=== PATIENT | female | born 1945 | race Caucasian/White ===

== ENCOUNTER 2024-10-12 11:33 | Emergency (ER) | payer MEDICARE, BC, SELFPAY ==
[2024-10-12] VITALS (9 sets, daily range): BP systolic 124–144; BP diastolic 75–99; PULSE 103–122; RESP 16–21; TEMP 35.9–36.7; O2SAT 94–100; BMI 24.4
--- NOTE | 2024-10-12 11:35 | PC.NURSE ---
PT ARRIVED BY AMBULANCE WITH POSSIBLE STROKE. PT WAS AT LOCAL [employer] AT 1115, TALKING AND NORMAL PER STAFF AT [facility]. THEN STARTED WITH REPETITIVE SPEAKING, GOT UNSTEADY AND FELL. WAS HELPED UP BY STAFF AND SAID I'M FINE I JUST WANT TO GO HOME. ASSISTED TO CAR BY STAFF WHERE PER MEDIC SHE DETERIORATED AND POLICE WERE CALLED, WHO THEN CALL EMS. PT WITH FORCED GAZE TO THE RIGHT, RIGHT FACIAL DROOP, SLURRED SPEECH, AND FLACCID ON THE LEFT ARM AND LEG. SEEN BY DR. MARTE IN THE AMBULANCE BAY ENTRANCE AND TAKEN TO CT ON EMS [facility]
--- NOTE | 2024-10-12 11:35 | PC.NURSE ---
stroke alert called before pt arrived @1131 with a 2 minute eta
--- NOTE | 2024-10-12 11:36 | PC.NURSE ---
telespecialist activated @ 4402 with a confirmation # of [id number]
--- NOTE | 2024-10-12 11:37 | EDNOTE_ITS ---
Neuro Symptoms Deficit-RME/HPI General Chief Complaint: Neuro Symptoms/Deficit Stated Complaint: POSSIBLE STROKE Time Seen by Provider: 10/12/24 11:41 Arrival date/time: 10/12/24 11:33 Limitations: no limitations RME / HPI RME / HPI Narrative: 79 year old female presents to the ED [facility] [place] [employer] [facility] for stroke evaluation. 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 Noticed while the patient was paying for the donuts she appeared lethargic, repeating questions/answers, and suddenly became weak and fell to the floor. No LOC. Medics report when they arrived the patient had weakness to the left side. Prehospital BS 112. Patient was evaluated at 11:33 am in ambulance bay and sent to CT. Per external medication review. Medications filled in the last 45 days includes Fenofibrate, Synthroid, Atenolol, HCTZ, Nifedipine, Losartan, Ezetimibe. Review of Systems Review of Systems ROS Unobtainable: unobtainable due to mental status ED Exam General Limitations: Present no limitations General appearance: Present other (Somnolent, follows commands ) Head Head exam: Present atraumatic and normocephalic Eye Eye exam: Present other (Pin point pupils, horizontal nystagmus ) ENT ENT exam: Present normal oropharynx and mucous membranes moist Neck Neck exam: Present normal inspection, full ROM and trachea midline Chest Chest inspection: Present normal inspection and symmetric chest wall rise Respiratory Respiratory exam: Present normal lung sounds bilaterally Cardiovascular Cardiovascular exam: Present regular rate, normal rhythm and normal heart sounds Abdominal Exam Abdominal exam: Present soft and normal bowel sounds Extremities Exam Extremities exam: Present normal inspection and other (Left upper and left lower extremity weakness) Back Exam Back exam: Present normal inspection Neurological Exam Neurological exam: Present other (Somnlent, GCS 11, follows commands, bilateral horizontal nystagmus, left facial droop, dense left sided extinction, weakness to the left upper and left lower extremities, dysarthria, expressive aphasia, ) Psychiatric Psychiatric exam: Present normal affect and normal mood Skin Skin exam: Present warm, dry, intact and normal color Course Quality Measures Suspected type of Stroke: Acute Ischemic Tenecteplase given: within 60 min of arrival stroke Orders Category Date Time Status Bedside Blood Glucose NOW Care 10/12/24 11:41 Completed Store Standards Associate NOW Care 12/09/24 11:41 Completed Continuous Pulse Oximetry NOW Care 10/12/24 11:41 Completed EKG (ED ONLY) *Do not use* NOW Care 10/12/24 11:41 Completed EKG (ED ONLY) *Do not use* NOW Care 10/12/24 12:49 Completed In and Out Catheter NEEDED Care 10/12/24 11:41 Completed Insert IV NOW Care 10/12/24 11:41 Completed NIH Stroke Scale NOW Care 10/12/24 12:14 Completed NIH Stroke Scale Q4HX8,QSHIFT Care 10/12/24 12:32 Completed NIH Stroke Scale now Care 10/12/24 11:41 Completed NPO NOW Care 10/12/24 11:41 Completed Neuro Check Q15M Care 10/12/24 12:32 Completed Neuro Check Q30MIN Care 10/12/24 11:42 Completed Nurse Swallow Screen x1 Care 10/12/24 11:41 Completed Vital Signs Q15M Care 10/12/24 12:32 Completed Consult to Neurology / Tele-Neurology Routine Cons 10/12/24 11:[address] angio stroke protocol Stat Exams 10/12/24 11:[address] head/brain wo con Stat Exams 10/12/24 11:41 Completed EKG (ED Only) Stat Exams 10/12/24 11:41 Draft EKG (ED Only) Stat Exams 10/12/24 12:49 Draft Alcohol, Blood Medical Stat Lab 10/12/24 11:45 Completed CBC Stat Lab 10/12/24 11:45 Completed Comprehensive Metabolic Panel Stat Lab 10/12/24 11:45 Completed Magnesium Stat Lab 10/12/24 11:45 Completed Partial Thromboplastin Time Stat Lab 10/12/24 11:45 Completed Prothrombin Time with INR Stat Lab 10/12/24 11:45 Completed Troponin I Stat Lab 10/12/24 11:45 Completed Labetalol IV [Trandate IV] Med 10/12/24 12:17 Discontinued 10 mg IVP PRNMRX1 PRN Labetalol IV [Trandate IV] Med 10/12/24 12:17 Discontinued 10 mg IVP PRNMRX1 PRN Nicardipine/Ns 20Mg Ivpb [Cardene Ivpb] Med 10/12/24 12:17 Discontinued 20 mg in 200 ml IV 5 mg/hr Nicardipine/Ns 20Mg Ivpb [Cardene Ivpb] Med 10/12/24 12:26 Discontinued 20 mg in 200 ml IV 5 mg/hr Ondansetron Inj [Zofran Inj] Med 10/12/24 13:33 Discontinued 4 mg IV X1 ONE Tenecteplase Inj [TNKase Inj] Med 10/12/24 12:17 Discontinued 16.7 mg IV X1 ONE Oxygen Delivery NOW RT 10/12/24 11:41 Completed Reevaluation(s) Reevaluation #1: Daughter reports she wants to move forward with TNKase. Time: 12:20 Vital Signs Vital signs: Vital Signs Temperature 98.0 F 10/12/24 12:11 Pulse Rate 103 H 10/12/24 12:11 Respiratory Rate 16 10/12/24 12:11 Blood Pressure 124/85 H 10/12/24 12:11 Pulse Oximetry (%) 100 10/12/24 12:11 Oxygen Delivery Method Room Air 10/12/24 12:11 Neuro Symptoms / Deficit MDM Narrative MDM Narrative:: Brittney Santana am scribing for and in the presence of Dr. Cleveland. : Level of consciousness May be assessed casually while taking history Alert; keenly responsive0 Arouses to minor stimulation+1 Requires repeated stimulation to arouse+2 Movements to pain+2 Postures or unresponsive+3 1B: Ask month and age Both questions right0 1 question right+1 0 questions right+2 Dysarthric/intubated/trauma/language barrier+1 Aphasic+2 1C: 'Blink eyes' & 'squeeze hands' Pantomime commands if communication barrier Performs both tasks0 Performs 1 task+1 Performs 0 tasks+2 2: Horizontal extraocular movements Only assess horizontal gaze Normal0 Partial gaze palsy: can be overcome+1 Partial gaze palsy: corrects with oculocephalic reflex+1 Forced gaze palsy: cannot be overcome+2 3: Visual olson No visual loss0 Partial hemianopia+1 Complete hemianopia+2 Patient is bilaterally blind+3 Bilateral hemianopia+3 4: Facial palsy Use grimace if obtunded Normal symmetry0 Minor paralysis (flat nasolabial fold, smile asymmetry)+1 Partial paralysis (lower face)+2 Unilateral complete paralysis (upper/lower face)+3 Bilateral complete paralysis (upper/lower face)+3 5A: Left arm motor drift Count out loud and use your fingers to show the patient your count No drift for 10 seconds0 Drift, but doesn't hit bed+1 Drift, hits bed+2 Some effort against gravity+2 No effort against gravity+3 No movement+4 Amputation/joint fusion0 5B: Right arm motor drift Count out loud and use your fingers to show the patient your count No drift for 10 seconds0 Drift, but doesn't hit bed+1 Drift, hits bed+2 Some effort against gravity+2 No effort against gravity+3 No movement+4 Amputation/joint fusion0 6A: Left leg motor drift Count out loud and use your fingers to show the patient your count No drift for 5 seconds0 Drift, but doesn't hit bed+1 Drift, hits bed+2 Some effort against gravity+2 No effort against gravity+3 No movement+4 Amputation/joint fusion0 6B: Right leg motor drift Count out loud and use your fingers to show the patient your count No drift for 5 seconds0 Drift, but doesn't hit bed+1 Drift, hits bed+2 Some effort against gravity+2 No effort against gravity+3 No movement+4 Amputation/joint fusion0 7: Limb Ataxia FNF/heel-griggs No ataxia0 Ataxia in 1 Limb+1 Ataxia in 2 Limbs+2 Does not understand0 Paralyzed0 Amputation/joint fusion0 8: Sensation Normal; no sensory loss0 Mild-moderate loss: less sharp/more dull+1 Mild-moderate loss: can sense being touched+1 Complete loss: cannot sense being touched at all+2 No response and quadriplegic+2 Coma/unresponsive+2 9: Language/aphasia Describe the scene; name the items; read the sentences (see?Evidence https://www.[employer].com/calc/715/cmi-fqhysv-wmnny-score-nihss#evidence ) Normal; no aphasia0 Mild-moderate aphasia: some obvious changes, without significant limitation+1 Severe aphasia: fragmentary expression, inference needed, cannot identify materials+2 Mute/global aphasia: no usable speech/auditory comprehension+3 Coma/unresponsive+3 10: Dysarthria Read the words (see?Evidence https://www.[employer].com/calc/715/fmp-cwhcmt-eqpkr-score-nihss#evidence ) Normal0 Mild-moderate dysarthria: slurring but can be understood+1 Severe dysarthria: unintelligible slurring or out of proportion to dysphasia+2 Mute/anarthric+2 Intubated/unable to test0 11: Extinction/inattention No abnormality0 Visual/tactile/auditory/spatial/personal inattention+1 Extinction to bilateral simultaneous stimulation+1 Profound padmini-inattention (ex: does not recognize own hand)+21 modality name= extinction value= 4 style= font-family: Facit, Calibri, Helvetica, sans- serif !important; box-sizing: border-box; position: absolute; opacity: 0; cursor: pointer; height: 0px; width: 0px; > Extinction to >1 modality+2 17?points NIH Stroke Scale Copy Results Next Steps https://www.[employer].com/calc/715/osm-gpncio-pfarw-score-nihss#next- steps Patient data External records reviewed:: EMS form Clinical information provided by:: patient and EMS Social determinants that could affect healthcare access:: none Patient has the following chronic illnesses:: Hypertension, hyperlipidemia, hypothyroidism How is presenting disease/condition affected by chronic disease/condition?: exacerbated by Evaluation data The following diagnostics were reviewed and interpreted by me:: lab results, radiology exam(s) and EKG tracing(s) (EKG at 13:12. Atrial fibrillation, ventricular rate 111, normal axis, occasional PVC's, generalized ST abnormalities, no STEMI ) Lab and/or radiology exams considered but not ordered:: None Interpretation Summary: Ordering Physician: Case Cleveland MD Date of Service: 10/12/24 Procedure(s): CT head/brain wo con Accession Number(s): [id number] cc: Zander Crump MD; Case Cleveland MD~ Examination: CT brain head without contrast. 2-D sagittal coronal reconstructions Date and time of exam:October 12, 2024 1142 hours INDICATIONS: Stroke alert, altered mental status slurred speech beginning this morning CTDI: vol (mGy):43.8 DLP: (mGycm):769 Technique: Multiple CT axial sections of the brain have been obtained, 5 mm slice thickness. Contrast has not been administered. 2-D sagittal, coronal reconstructions have been obtained Low dose protocols were performed. One or more of the following dose reduction techniques were used; automated exposure control, adjustment of the mA and/or KV according to patient size, use of iterative reconstruction technique. Findings: No significant ventricular enlargement. Intra-axial or extra-axial hemorrhage density is not seen. No mass effect or midline shift Basal cisterns are not remarkable. Fourth ventricle is midline. Cranial vault intact. Impression: Negative for acute hemorrhage, mass effect or midline shift Dictated By: Zander Crump MD Signed By: <Electronically signed by Zander Crump MD in OV> 10/12/24 1153 ===== == Ordering Physician: Case Cleveland MD Date of Service: 10/12/24 Procedure(s): CT angio stroke protocol Accession Number(s): [id number] cc: Zander Crump MD; Case Cleveland MD~ Examination: CTA carotids with intravenous contrast CTA brain, head with intravenous contrast. 2-D sagittal, coronal reconstructions. 3-D reconstructions. Exam date and time: October 12, 2024 1154 hours INDICATIONS: Stroke alert, onset altered mental status slurred speech today CTDI: vol (mGy) 17.6 DLP: (mGycm) 399 Technique: Multiple CTA axial brain, head carotid images post intravenous contrast injection 75 cc, Isovue-370. 2-D sagittal, coronal reconstructions. 3-D reconstructions, 3-D post processing including vascular maximum intensity projection images. Low dose protocols were performed. One or more of the following dose reduction techniques were used; automated exposure control, adjustment of the mA and/or KV according to patient size, use of iterative reconstruction technique. Findings: No significant common carotid carotid bifurcation or internal carotid artery stenoses Dominant right vertebral artery no critical stenoses Occlusion midportion M1 segment right middle cerebral artery with reduced filling of right middle cerebral artery trifurcation vessels, acute thrombus proximal M1 segment right middle cerebral artery axial image 58 Anterior cerebral branches basilar artery and posterior cerebral branches do fill IMPRESSION: Acute thrombus occluding the M1 segment right middle cerebral artery, axial image 58 Dictated By: Zander Crump MD Signed By: <Electronically signed by Zander Crump MD in OV> 10/12/24 1212 Medications / Prescriptions Medications or Prescriptions considered but not ordered:: None Medication administrations:: Medication Administration History Discontinued Medications Nicardipine/Sodium Chloride (Cardene Ivpb) 20 mg in 200 mls @ 50 mls/hr IV .Q4H PRN; Protocol PRN Reason: Per Nicardipine Stroke Protocol Stop: 11/11/24 12:16 Nicardipine/Sodium Chloride (Cardene Ivpb) 20 mg in 200 mls @ 50 mls/hr IV .Q4H PRN; Protocol PRN Reason: Per Nicardipine Stroke Protocol Stop: 11/11/24 12:25 Labetalol HCl (Labetalol Inj 5 Mg/Ml Vial 20 Ml) 10 mg IVP PRNMRX1 PRN PRN Reason: SBP > 185 mmHg and/or DBP > 110 Labetalol HCl (Labetalol Inj 5 Mg/Ml Vial 20 Ml) 10 mg IVP PRNMRX1 PRN PRN Reason: SBP > 180 mmHg or DBP > 105 Ondansetron HCl (Ondansetron Inj 2 Mg/Ml Inj 2 Ml) 4 mg IV X1 ONE; Protocol Stop: 10/12/24 13:34 Last Admin: 10/12/24 13:38 Dose: 4 mg Documented By: ANDREY Tenecteplase (Tenecteplase Inj 50 Mg Vial) 16.7 mg 0.25 mg/kg (16.7 mg) IV X1 ONE Stop: 10/12/24 12:18 Last Admin: 10/12/24 12:27 Dose: 16.7 mg Documented By: Co-signed By: ANDREY See above Consultations Consultation(s) initiated? (list below): Yes Consultation #1 (Physician, Specialty, Details): I spoke with teleneurologist Dr. Mullins. Reports patient has an acute thrombus occluding the M1 segment right cerebral artery. States she spoke with patients daughter who reports she is on Eliquis although is unsure and asking we give her a few minutes to go home and check the patients medication list. Time: 12:10 Consultation #2 (Physician, Specialty, Details): I spoke with txfer nurse at [facility]. Discussed patients PMHx, HPI, ED course, exam findings, labs, and radiology results. Was unable to get ahold of the interventional neuroligist although will relay the information. Time: 12:25 Consultation #3 (Physician, Specialty, Details): 1230: Notified by RN that the patient has been accepted to [facility], ER to ER by Dr. Cintron. Diagnosis Neuro Differential Diagnosis: subarachnoid hemorrhage, cerebrovascular accident and transient cerebral ischemia Most likely diagnosis given after review of the tests above:: Right MCA large vessel occlusion Admission Indicated Admission indicated?: not indicated Explain why admission is indicated or not indicated:: Requires transfer for M1 occlusion and interventional neurology. Admission Request Was there a request for admission?: No Disposition Plan Disposition Plan: Transfer Critical Care Time Critical Care Time Critical Care Time: Yes Total Critical Care Time (min.): 60 Attestation: The high probability of sudden, clinically significant deterioration in the patient's condition required the highest level of my preparedness to intervene urgently. The services I provided to this patient were to treat and/or prevent clinically significant deterioration. Services included the following: chart data review, reviewing nursing notes and/or old charts, documentation time, test consultant collaboration regarding findings and treatment options, medication orders and management, direct patient care, vital sign assessments and ordering, interpreting and reviewing diagnostic studies and lab tests. Aggregate critical care time includes only time during which I was engaged in work directly related to the patient's care, as described above, whether at bedside or elsewhere in the Emergency Department. It did not include time spent performing other reported procedures or the services of residents, students, nurses or physician assistants. Discharge Plan Plan Patient Disposition: [facility] Facility Pt Being Transferred to: [facility] Service Needed for Transfer: Neurosurgery Prescriptions/Referrals Referrals: No Primary/Family,Physician [Primary Care Provider] - In 1 week Problem List Clinical Impression: Acute right MCA stroke Patient/Caregiver Discharge Instructions Print Language: Yoruba Stand Alone Forms: [facility]ce[facility] Award Info., Patient Portal Info Letter
--- NOTE | 2024-10-12 11:41 | XR_ITS ---
Examination: CTA carotids with intravenous contrast CTA brain, head with intravenous contrast. 2-D sagittal, coronal reconstructions. 3-D reconstructions. Exam date and time: October 12, 2024 1154 hours INDICATIONS: Stroke alert, onset altered mental status slurred speech today CTDI: vol (mGy) 17.6 DLP: (mGycm) 399 Technique: Multiple CTA axial brain, head carotid images post intravenous contrast injection 75 cc, Isovue-370. 2-D sagittal, coronal reconstructions. 3-D reconstructions, 3-D post processing including vascular maximum intensity projection images. Low dose protocols were performed. One or more of the following dose reduction techniques were used; automated exposure control, adjustment of the mA and/or KV according to patient size, use of iterative reconstruction technique. Findings: No significant common carotid carotid bifurcation or internal carotid artery stenoses Dominant right vertebral artery no critical stenoses Occlusion midportion M1 segment right middle cerebral artery with reduced filling of right middle cerebral artery trifurcation vessels, acute thrombus proximal M1 segment right middle cerebral artery axial image 58 Anterior cerebral branches basilar artery and posterior cerebral branches do fill IMPRESSION: Acute thrombus occluding the M1 segment right middle cerebral artery, axial image 58
--- NOTE | 2024-10-12 11:41 | XR_ITS ---
Examination: CT brain head without contrast. 2-D sagittal coronal reconstructions Date and time of exam:October 12, 2024 1142 hours INDICATIONS: Stroke alert, altered mental status slurred speech beginning this morning CTDI: vol (mGy):43.8 DLP: (mGycm):769 Technique: Multiple CT axial sections of the brain have been obtained, 5 mm slice thickness. Contrast has not been administered. 2-D sagittal, coronal reconstructions have been obtained Low dose protocols were performed. One or more of the following dose reduction techniques were used; automated exposure control, adjustment of the mA and/or KV according to patient size, use of iterative reconstruction technique. Findings: No significant ventricular enlargement. Intra-axial or extra-axial hemorrhage density is not seen. No mass effect or midline shift Basal cisterns are not remarkable. Fourth ventricle is midline. Cranial vault intact. Impression: Negative for acute hemorrhage, mass effect or midline shift
--- NOTE | 2024-10-12 11:41 | EKG_ITS ---
[facility] Test Date: 2024-10-12 Pat Name: ANDRE LEVIN Department: Room: - Gender: Female Manager Hospital: : 1945 Requested By: Case Whitney Order Number: [id number] Reading MD: Case Whitney Measurements Intervals [place] Rate: 112 P: PA: QRS: 67 QRSD: 91 T: -33 QT: 351 QTc: 479 Interpretive Statements ATRIAL FIBRILLATION WITH RAPID VENTRICULAR RESPONSE NONSPECIFIC ST & T-WAVE ABNORMALITY No previous ECG available for comparison /store/S0/[id number]/ecg/[id number].pdf
[2024-10-12 11:59] LABS: Basophils # (Auto) 0.1 Thou/mm3 (0.0-0.2); Basophils % (Auto) 1 % (0-2.5); Eosinophils # (Auto) 0.1 Thou/mm3 (0.0-0.5); Eosinophils % (Auto) 2 % (0-10); Hematocrit 36.5 % (36.0-46.0); Hemoglobin 12.1 g/dL (12.0-16.0); Immature Granulocytes % (Auto) 1 % (0-0); Immature Granulocytes Auto 0.04 Thou/mm3 (0.00-0.00); Lymphocytes # (Auto) 3.6 Thou/mm3 (1.0-4.8); Lymphocytes % (Auto) 42 % (10-50); Mean Corpuscular HGB Conc 33.2 g/dl (31.0-37.0); Mean Corpuscular Hemoglobin 30.1 pg (25.0-35.0); Mean Corpuscular Volume 91 fL (80-100); Monocytes # (Auto) 0.8 Thou/mm3 (0.0-0.8); Monocytes % (Auto) 9 % (0-12); Neutrophils % (Auto) 47 % (37-80); Nucleated Red Blood Cell % 0 /100 WBC (0); Platelet Count 450 Thou/mm3 (140-440); RDW Standard Deviation 43.5 fL (36.4-46.3); Red Blood Count 4.02 Miln/mm3 (4.00-5.20); White Blood Count 8.6 Thou/mm3 (3.6-11.0)
[2024-10-12 12:14] LABS: INR 1.1 (0.9-1.3); Partial Thromboplastin Time 21.4 Seconds (22.0-36.0); Prothrombin Time 12.4 Seconds (9.0-12.2)
[2024-10-12 12:23] LABS: Alanine Aminotransferase 23 U/L (10-49); Albumin, Serum 4.3 gm/dL (3.4-4.8); Albumin/Globulin Ratio 1.7 (1.2-2.2); Alcohol, Blood Medical < 3.0 mg/dL (0-10.0); Alkaline Phosphatase 53 U/L (46-116); Anion Gap 9 (7-16); Aspartate Amino Transferase 40 U/L (0-34); BUN/Creatinine Ratio 17 Ratio (12-20); Bilirubin,Total 0.6 mg/dL (0.3-1.2); Blood Urea Nitrogen 34 mg/dL (9-23); Calcium 9.3 mg/dL (8.3-10.6); Calcium (Corrected) 9.3 mg/dL (8.5-10.1); Carbon Dioxide 22.7 mMol/L (20.0-31.0); Chloride 107 mMol/L (98-107); Estimated Creatinine Clearance 20.5 mL/min (>60); Globulin 2.6 gm/dL (2.3-3.5); Glucose 164 mg/dL (74-106); Magnesium 1.8 mg/dL (1.6-2.6); Osmolality,Calculated 289 (275-295); Potassium 4.5 mMol/L (3.4-5.1); Sodium 139 mMol/L (136-145); Total Protein 6.9 gm/dL (5.7-8.2); Troponin I < 0.020 ng/mL (0.0-0.045); eGFR 25 See Note
[2024-10-12] MEDS: TENECTEPLASE INJ 50 MG VIAL 16.7 MG IV (12:27)
--- NOTE | 2024-10-12 12:35 | PC.NURSE ---
1133 tele neuro activated. left facial droop, left sided weakness and inattention. Patient intermittently able to shake head yes or no. Consent given to tele neurologist via phone by daughter. 16.7 mg TNK ordered by tele neuro, dose rechecked by Idalmis Azul RN and veterans adviser. Med give at 1227 by veterans adviser.
--- NOTE | 2024-10-12 12:37 | PC.CM ---
Addendum entered by Yarely Newman RN 10/12/24 13:22: 1322 [facility] [employer] Called [facility], spoke to Beth and she confirmed that she received the paperwork. 1315 transfer packet is complete with CD inside including all signatures. Transfer Packet given to bedside nurse and number to call for report is on tracker. EMS is already at bedside. Addendum entered by Yarely Newman RN 10/12/24 12:56: 1256 Called [facility], spoke to Becky and setup the stat transport. She stated the team is own their way to [facility]. 1254 received call from Becca at [facility] that transport is declined due to weather. Addendum entered by Yarely Newman RN 10/12/24 12:45: 1239 called [facility], spoke to Becca to setup the transport. Becca stated she will call me back after flight and weather check. Addendum entered by Yarely Newman RN 10/12/24 12:43: 1234 received call from Amrik at [facility] that pt has been accepted at [facility] ED to ED transfer. Accepting Dr. is Wai Dyson. Number to call for report is [phone]. Original Note: 1216 called [facility], spoke to Amrik and initiated the transfer request. Amrik wants me to send her pt face sheet and clinicals faxed over to [facility] ED fax no at [phone]. Amrik wants me to get Dr. Cleveland on the line while she gets her neuro-interventional on the line for peer to peer. I connected Dr. Cleveland on the call. While on hold I faxed face sheet to [facility] at 1226 and faxed clinicals to [facility] ED at 6110. I also pushed images to [facility] through [employer]. Amrik stated she is unable to connect her neuro-interventional on the line and she will try again in a little bit. [address] Cleveland pt has LVO needs to be stat transferred for neuro-surgical services. Per Dr. Cleveland pt LWN is 11:15am, pt has GCS of 12 on 2l/min NC.
--- NOTE | 2024-10-12 12:42 | PC.NURSE ---
JUJU FROM [facility] CALLING TO SPEAK TO LEEROY HARDING AT THIS TIME
--- NOTE | 2024-10-12 12:47 | PD.NEUROCONS ---
History of Present Illness Consult Narrative History of present illness: [facility] Patient Name:???cr johnson Date of :???1945 Identification Number:??? 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 NIHSS was 19. CTA head and neck showed a left M1 occlusion. Pt's daughter was able to be reached and verified no contraindications to iv-thrombolytics. The risks and benefits of iv-thrombolytics were discussed with the patient's daughter including risk of ICH of about 2-6% including risk of fatal ICH, systemic bleeding, anaphylaxis and mortality. After a discussion of the risks and benefits, pt 's agreed to iv-TNK which was given at 12:27. There was a delay in the time to decision as pt's daughters at first was unable to be reached, and then the patient's daughter wanted to hold TNK while she tried to find her mother's medication list. to verify she was not on any anticoagulation. Transfer is being arranged by the ED for potential neurointervention. Our recommendations are outlined below. Recommendations: IV Tenecteplase recommended. I confirmed the following. (Patient name, , MRN, Blood Pressure, dose of Thrombolytic and waste, weight completed by stretcher/scale not stated weight, have ED staff inform ED MD of thrombolytic decision) Thrombolytic bolus given Without Complication. IV Tenecteplase Total Dose ? 16.7 mg Routine post Thrombolytic monitoring including neuro checks and blood pressure control during/after treatment Monitor blood pressure Check blood pressure and neuro assessment every 15 min for 2 h, then every 30 min for 6 h, and finally every hour for 16 h. Manage Blood Pressure per post Thrombolytic protocol. ? Follow designated hospital protocol for admission and post thrombolytic care ? CT brain 24 hours post Thrombolytic ? NPO until swallowing screen performed and passed ? No antiplatelet agents or anticoagulants (including heparin for DVT prophylaxis) in first 24 hours ? No Avalos catheter, nasogastric tube, arterial catheter or central venous catheter for 24 hr, unless absolutely necessary ? Telemetry ? Bedside swallow evaluation ? HOB less than 30 degrees ? Euglycemia ? Avoid hyperthermia, PRN acetaminophen ? DVT prophylaxis ? Inpatient Neurology Consultation ? Stroke evaluation as per inpatient neurology recommendations Discussed with ED physician Advanced Imaging: CTA Head and Neck Completed. LVO:Yes Discussed with ARNALDO :No Metrics: Last Known Well: 10/12/2024 11:15:00 Dispatch Time: 10/12/2024 11:33:43 Arrival Time: 10/12/2024 11:33:00 Initial Response Time: 10/12/2024 11:35:52Symptoms: Right sided weakness. . Initial patient interaction: 10/12/2024 11:44:48 NIHSS Assessment Completed: 10/12/2024 11:48:42Patient is a candidate for Thrombolytic. Thrombolytic Medical Decision: 10/12/2024 12:16:18 Needle Time: 10/12/2024 12:27:53Weight Noted by Staff: 66.7 kg I personally Reviewed the CT Head and it showed a possible dense right MCA sign and a small area of hypoattenuation in the left insula that appears c/w a chronic infarct, but no early ischemic changes. Primary Provider Notified of Diagnostic Impression and Management Plan on: 10/12/2024 12:21:40 Extended thrombolytic management related to: ?? Awaiting on history by family on potential contraindications Thrombolytic Contraindications: Last Known Well > 4.5 hours:?No CT Head showing hemorrhage:?No Ischemic stroke within 3 months:?No Severe head trauma within 3 months:?No Intracranial/intraspinal surgery within 3 months:?No History of intracranial hemorrhage:?No Symptoms and signs consistent with an SAH:?No GI malignancy or GI bleed within 21 days:?No Coagulopathy: Platelets <100 000 /mm3, INR >1.7, aPTT>40 s, or PT >15 s:?No Treatment dose of LMWH within the previous 24 hrs:?No Use of NOACs in past 48 hours:?No Glycoprotein IIb/IIIa receptor inhibitors use:?No Symptoms consistent with infective endocarditis:?No Suspected aortic arch dissection:?No Intra-axial intracranial neoplasm:?No Thrombolytic Decision and Management Plan: Management with thrombolytic treatment was explained to the Family as was risks and benefits and alternatives to the treatment. Patient agrees with the decision to proceed with thrombolytic treatment. . All questions were answered and the Family expressed understanding of the treatment plan. History of Present Illness:Patient is a 79 year old Female. Patient was brought by EMS for symptoms of Right sided weakness. . Pt is a 79 yo F with HTN, HLP, hyperlipidemia who was brought in by EMS for sudden onset of AMs and left sided weakness. PT was at at a store buying donuts when she suddenly became lethargic and confused. When staff came to assist her, she fell with left sided weakness. EMS noted left sided weakness, right gaze deviation and slurred speech. I was able to reach the patients daughter by phone who verified that there is no history of stroke in the last 3 months, major head trauma, ICH, cancer, . No surgeries or procedures in the past 3 months. No history of GI or bleeding in the past 21 days. The patient is not taking any anticoagulants, and there is no history of bleeding diathesis. Past Medical History: ?Hypertension ?Hyperlipidemia Other PMH:? Hypothyroidism Medications: No Anticoagulant use? No Antiplatelet use Reviewed EMR for current medications Other Medications Pertinent To Assessment Include: Atenolol ?Synthroid ?HCTZ ?Losartan ?Zetia ?Fenofibrate. ? Allergies:? Description:?Bactim, PHenergan, Codeine, Simvastatin, Prevachol Social History: Smoking: No Family History: There is no family history of premature cerebrovascular disease pertinent to this consultation ROS : 14 Points Review of Systems was performed and was negative except mentioned in HPI. Past Surgical History: There Is No Surgical History Contributory To Today?s Visit Examination: BP(119/78),?Pulse(117),?Blood Glucose(112) 1A: Level of Consciousness - Alert; keenly responsive?+ 0 1B: Ask Month and Age - Both Questions Right?+ 0 1C: Blink Eyes & Squeeze Hands - Performs Both Tasks?+ 0 2: Test Horizontal Extraocular Movements - Forced Gaze Palsy: Cannot Be Overcome?+ 2 3: Test Visual Nj - Complete Hemianopia?+ 2 4: Test Facial Palsy (Use Grimace if Obtunded) - Partial paralysis (lower face)?+ 2 5A: Test Left Arm Motor Drift - No Movement?+ 4 5B: Test Right Arm Motor Drift - No Drift for 10 Seconds?+ 0 6A: Test Left Leg Motor Drift - No Movement?+ 4 6B: Test Right Leg Motor Drift - No Drift for 5 Seconds?+ 0 7: Test Limb Ataxia (FNF/Heel-Bryant) - No Ataxia?+ 0 8: Test Sensation - Complete Loss: Cannot Sense Being Touched At All?+ 2 9: Test Language/Aphasia - Normal; No aphasia?+ 0 10: Test Dysarthria - Mild-Moderate Dysarthria: Slurring but can be understood?+ 1 11: Test Extinction/Inattention - Profound padmini-inattention (ex: does not recognize own hand)?+ 2 NIHSS Score:?19 Pre-Morbid Modified Ashlee Scale:0 Points = No symptoms at all Spoke with :?Dr. Zander Crump This consult was conducted in real time using interactive audio and video technology. Patient was informed of the technology being used for this visit and agreed to proceed. Patient located in hospital and provider located at home/office setting. Patient is being evaluated for possible acute neurologic impairment and high probability of imminent or life-threatening deterioration. I spent total of 51 minutes providing care to this patient, including time for face to face visit via telemedicine, review of medical records, imaging studies and discussion of findings with providers, the patient and/or family. Dr Susana Mullins [facility] For Inpatient follow-up with [facility] physician please call [facility] at . As we are not an outpatient service for any post hospital discharge needs please contact the hospital for assistance. If you have any questions for the [facility] physicians or need to reconsult for clinical or diagnostic changes please contact us via [facility] at . cc:: cc: Results Labs 10/12/24 11:45 10/12/24 11:45 Labs: Short CBC 10/12/24 Range/Units 11:45 WBC 8.6 (3.6-11.0) Thou/mm3 Hgb 12.1 (12.0-16.0) g/dL Hct 36.5 (36.0-46.0) % Plt Count 450 H (140-440) Thou/mm3 BMP 10/12/24 11:45 Sodium 139 Potassium 4.5 Chloride 107 Carbon Dioxide 22.7 BUN 34 H Creatinine 2.0 H Glucose 164 H Calcium 9.3 Cardiac Enzymes 10/12/24 Range/Units 11:45 Troponin I < 0.020 (0.0-0.045) ng/mL Liver Function 10/12/24 Range/Units 11:45 Total Bilirubin 0.6 (0.3-1.2) mg/dL AST 40 H (0-34) U/L ALT 23 (10-49) U/L Alkaline Phosphatase 53 (46-116) U/L Albumin 4.3 (3.4-4.8) gm/dL
--- NOTE | 2024-10-12 12:49 | EKG_ITS ---
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: : 1945 Requested By: Case Whitney Order Number: [id number] Reading MD: Case Whitney Measurements Intervals [place]et Rate: 111 P: CO: QRS: 58 QRSD: 90 T: -3 QT: 326 QTc: 443 Interpretive Statements ATRIAL FIBRILLATION WITH RAPID VENTRICULAR RESPONSE WITH ABERRANT CONDUCTION OR VENTRICULAR PREMATURE COMPLEXES MODERATE ST DEPRESSION [0.05+ mV ST DEPRESSION] ABNORMAL QRS-T ANGLE [QRS-T AXIS DIFFERENCE > 60] Compared to ECG 10/12/2024 12:13:02 Ventricular premature complex(es) now present Aberrant conduction of supraventricular beat(s) now present ST (T wave) deviation now present T-wave abnormality no longer present /store/S0/[id number]/ecg/[id number].pdf
[2024-10-12] MEDS: ONDANSETRON INJ 2 MG/ML INJ 2 ML 4 MG IV (13:38)
--- NOTE | 2024-10-12 13:45 | PC.NURSE ---
EMS left with transfer sheet, called [facility] @ [phone], spoke with Priya yanez, will fax me transfer sheet in order for me to properly fill out form and will fax back to their facility.
--- NOTE | 2024-10-12 13:49 | PC.NURSE ---
Patient left with EMS at 1343. Report given to EMS, [facility] at [facility], and bedside RN at [facility]. Staff satisfied with report and had no further questions. Patient's vitals stable at time of transport. Daughter and grandson to follow EMS to [facility]. Original NIH 1p. NIH upon departure 14. Failed swallow screen, zofran given due to nausea. Patient GCS 15, aaox4. Left sided weakness remains however she now has some effort against gravity.
--- NOTE | 2024-10-12 15:43 | PC.NURSE ---
faxed completed transfer sheet to [facility] to [phone], spoke with clerk Priya at their facility and she will give to nurse
== END 2024-10-12 13:43 | disposition short-term general hospital (02) ==
PROVIDERS: Emergency Provider Emergency Medicine
DX: I63.311 Cerebral infarction due to thrombosis of right middle cerebral artery (principal); R47.81 Slurred speech; R53.1 Weakness; I10 Essential (primary) hypertension; R29.719 NIHSS score 19; Z75.1 Person awaiting admission to adequate facility elsewhere
CPT/HCPCS: 36415; 70450; 70496; 70498; 80053; 80307; 80320; 81001; 83735; 84484; 85025; 85610; 85730; 93005; 96374; 99291; A4649; J2405; J3101; Q9967; G0480

== ENCOUNTER 2024-12-13 18:20 | Inpatient (IN) | payer MEDICARE, BC, SELFPAY ==
[2024-12-13] VITALS (36 sets, daily range): BP systolic 114–183; BP diastolic 69–110; PULSE 71–110; RESP 14–24; TEMP 36.6; O2SAT 100; BMI 29.2
--- NOTE | 2024-12-13 18:35 | PC.NURSE ---
@1835- Pt BIBA; pt 80 y/o F from SNF; on scene, pt actively seizing at facility, per staff. Upon EMS arrival, pt still seizing about 1 min with vomiting. 4mg versed given IN via EMS. Pt has hx of seizures. Pt initially on ED 16 and was bagged by Dr. Lobo for approximately 1 minute. Pt achieved 100% O2 saturation; bagging stopped. Pt satting at 99% on RA. @1838- Pt still seizing, per Dr. Cleveland. Dr. Cleveland at bedside bagging pt. Pt moved to ED 4 at this time.
--- NOTE | 2024-12-13 18:39 | PD.EDSEIZ ---
ED Seizures RME/HPI General Chief Complaint: Seizure Stated Complaint: SEIZURE Time Seen by Provider: 12/13/24 18:55 Source: EMS Arrival date/time: 12/13/24 18:20 Mode of arrival: EMS Limitations: altered mental status RME / HPI RME / HPI Narrative: Dr. Cleveland?s Main ED Evaluation: 80-year-old female from [facility] was brought to the Emergency Department by ambulance due to seizure activity. Per EMS report, the patient was actively seizing upon their arrival. The seizure episode lasted approximately one minute, during which the patient experienced vomiting. EMS administered 4 mg of intranasal Versed (midazolam) to terminate the seizure. EMS interventions included EKG monitoring, cardiac monitoring, ambu-bag ventilation, and the use of a non-rebreather mask for oxygen support. Related Data Allergies Allergy/AdvReac Type Severity Reaction Status Date / Time codeine Allergy Verified 12/13/24 19:10 pravastatin Allergy Verified 12/13/24 19:10 promethazine (From Phenergan) Allergy Verified 12/13/24 19:10 sulfamethoxazole (From Allergy Verified 12/13/24 19:10 Bactrim) trimethoprim (From Bactrim) Allergy Verified 12/13/24 19:10 Review of Systems Review of Systems ROS Unobtainable: unobtainable due to mental status and unobtainable due to medical condition Past Medical History Past Medical History NEUROLOGIC: Negative Neurological Disorders, Cerebrovascular Accident, Transient Ischemic Attacks (TIA), Dementia, Alzheimer's Disease, Parkinson's Disease, Brain Tumor, Meningitis, Seizures, Epilepsy, Multiple Sclerosis, Cerebral Palsy, Amyotrophic Lateral Sclerosis (ALS/Mia Gehrig's), Guillain-[place] Syndrome, Spina Bifida, Paralysis, Peripheral Neuropathy, Mederos's Palsy, Subdural Hematoma, Migraine, Head Trauma, Spinal Cord Injury or Traumatic Brain Injury CARDIAC: Positive Atrial Fibrillation (new onset, undiagnosed), Hypercholesterolemia and Hypertension; Negative Cardiac Disorders, Myocardial Infarction, Cardiac Arrhythmia, Angina, Heart Murmur, Coronary Artery Disease, Atherosclerotic Heart Disease, Peripheral Vascular Disease, Aneurysm, Congestive Heart Failure, Congenital Heart Disease, Valvular Heart Disease, Rheumatic Fever, Cardiomyopathy, Edema, Pericarditis, Cellulitis, Deep Vein Thrombosis, Hypotension or Varicose Veins RESPIRATORY: Negative Chronic Obstructive Pulmonary Disease (COPD), Asthma, Bronchitis, Emphysema, Pneumonia, Pulmonary Fibrosis, Tuberculosis, Pulmonary Embolism, Pulmonary Edema or Sleep Apnea GASTROINTESTINAL: Negative Gastrointestinal Disorders, Hepatitis, Cirrhosis, Pancreatitis, Celiac Disease, Gall Bladder Disease, Gastrointestinal Bleed, Esophageal Varices, Buchanan's Esophagus, Colitis, Ulcerative Colitis, Diverticulitis, Diverticulosis, Ulcer, Irritable Bowel, Crohn's Disease, Obstructive Bowel, Hiatal Hernia, Hemorrhoids, Gastroesophageal Reflux Disease or Obesity GENITOURINARY: Negative Genitourinary Disorders, Renal Disease, Kidney Stones, Polycystic Kidney Disease, Neurogenic Bladder, Inguinal Hernia, Dialysis or Benign Prostatic Hyperplasia REPRODUCTIVE: Negative Endometriosis, Genital Herpes, Gonorrhea, Pelvic Inflammatory Disease, Previous Pregnancies, Syphilis or Uterine Prolapse MUSCULOSKELETAL: Negative Musculoskeletal Disorders, Muscular Dystrophy, Myasthenia Gravis, Marfan's Syndrome, Arthritis, Rheumatoid Arthritis, Osteoporosis, Degenerative Disk Disease, Gout, Scoliosis, Fibromyalgia, Fractures, Degenerative Joint Disease, Osteomyelitis or Poliovirus ENT: Positive Deafness (left ear [place]); Negative Cataracts, Glaucoma, Blind, Retinal Detachment, Macular Degeneration, Head Trauma or Eye Prosthesis ENDOCRINE: Negative Endocrine Disorders, Diabetes Mellitus Type 1, Diabetes Mellitus Type 2, Hypoglycemia, Lenox's Syndrome, Sumanth's Disease, Hyperthyroidism, Hypothyroidism, Parathyroid Disease, Pituitary Disease, Systemic Lupus Erythematosus, Syndrome of Inappropriate Antidiuretic Hormone (SIADH), Adrenal Disease or Graves' Disease HEMATOLOGIC: Negative Blood Disorders, Anemia, Leukemia, Hemophilia, Thalassemia, Sickle Cell Disease or Clotting Problems PSYCHO/SOCIAL: Negative Psychiatric Problems, Schizophrenia, Recreational Drug Use, Bipolar Disorder, Depression, Anxiety, Behavior Problems, Self-Mutilation, Attention Deficit Disorder, Attention Deficit Hyperactivity Disorder, Depression, Post Traumatic Stress Disorder or Eating Disorder OTHER HISTORY: Negative Hospitalization, Autoimmune Disease, Down Syndrome, Autism, Developmental Delay, Shingles, Falls, Blood Transfusions, Blood Transfusion Reaction, Anesthesia Reactions, Organ Transplant, Chemotherapy, Radiation Therapy, Hyperbaric Therapy, MRSA, VRSA, Vancomycin-Resistant Enterococci, Human Immunodeficiency Virus (HIV), Chicken Pox, Measles, Mumps, Rubella (Kinyarwanda Measles), Pertussis, Clostridium Difficile or Cancer Family History FAMILY HISTORY: Positive Family Respiratory Disorders (brother/dad), Family Cardiac Disorders and Family Gastrointestinal Problems Surgical History SURGICAL: Negative Pacemaker, Endocrine Surgery, Thyroidectomy, Ear Surgery, Abdominal Surgery or Organ Transplant Social History SMOKING STATUS: Never smoker ED Exam Narrative Physical exam: GENERAL APPEARANCE: unresponsive, well-developed, well-nourished, no acute distress VITALS: All vitals were reviewed and the pulse ox is 100% on ambu-bag, which is normal according to my interpretation. HEENT: Normocephalic, atraumatic; pupils pin point; mucous membranes pink, moist; oropharynx clear NECK: Supple LUNGS: Patient was not spontaneously respirating and required immediate bag-valve mask ventilation to maintain oxygenation. HEART: Regular rate, regular rhythm; normal S1, S2; no murmurs ABDOMEN: non distended; normal BS; soft, no tenderness, no guarding, no rebound; no masses, no organomegaly, no hernia BACK: no CVA tenderness EXTREMITIES: atraumatic; no edema NEUROLOGIC: Active seizure activity observed upon entry, characterized by rhythmic deviation of the globes, clonic movements of the facial muscles, and extremities. PSYCHIATRIC: appropriate mood and affect SKIN: warm, dry, normal color; no rashes General Limitations: Present altered mental status Course Course Course Narrative: CXR is ordered for determining etiology of hypoxia. Quality Measures none Orders Category Date Time Status Billboard Installer STAT Care 12/13/24 18:59 Active Continuous Pulse Oximetry STAT Care 12/13/24 18:59 Completed EKG (ED ONLY) *Do not use* NOW Care 12/13/24 19:17 Completed Avalos [Urinary Catheter] QS Care 12/13/24 19:02 Active In and Out Catheter X1PRN Care 12/13/24 18:59 Completed Insert IV NOW Care 12/13/24 18:59 Active Insert NG / OG tube NOW Care 12/13/24 19:02 Active Intubation NOW Care 12/13/24 18:57 Completed NPO STAT Care 12/13/24 18:59 Active Strict Intake and Output Routine Care 12/13/24 18:59 Ordered Urinary Catheter QS Care 12/13/24 18:[address] cervical spine wo con Stat Exams 12/13/24 19:[address] head/brain wo con Stat Exams 12/13/24 19:23 Completed CXR [XR chest 1V post procedure] Stat Exams 12/13/24 18:51 Completed EKG (ED Only) Stat Exams 12/13/24 18:59 Draft EKG (ED Only) Stat Exams 12/13/24 19:17 Ordered Arterial Blood Gas Stat Lab 12/13/24 20:39 Completed B-Type Natriuretic Peptide Stat Lab 12/13/24 18:45 Completed Blood Culture (Lab) Stat Lab 12/13/24 20:41 Received Blood Culture (Lab) Stat Lab 12/13/24 21:34 Ordered CBC Stat Lab 12/13/24 18:45 Completed CK [Creatine Kinase] Stat Lab 12/13/24 18:45 Completed Comprehensive Metabolic Panel Stat Lab 12/13/24 18:45 Completed Drug Screen,Urine Stat Lab 12/13/24 19:50 Completed LDH (Lactate Dehydrogenase) Stat Lab 12/13/24 18:45 Completed Lactate (Lactic Acid) Stat Lab 12/13/24 18:45 Completed Lactic Acid, 3 HR Stat Lab 12/13/24 22:38 Completed Lipase Stat Lab 12/13/24 18:45 Completed Magnesium Stat Lab 12/13/24 18:45 Completed Partial Thromboplastin Time Stat Lab 12/13/24 18:45 Completed Phosphorous Stat Lab 12/13/24 18:45 Completed Procalcitonin Stat Lab 12/13/24 18:45 Completed Prothrombin Time with INR Stat Lab 12/13/24 18:45 Completed Sputum Culture and Gram Stain Routine Lab 12/13/24 18:59 Stop Req Sputum Culture and Gram Stain Routine Lab 12/13/24 23:00 Ordered Sputum Culture and Gram Stain Stat Lab 12/13/24 22:37 Ordered Troponin I Stat Lab 12/13/24 18:45 Completed Urinalysis Stat Lab 12/13/24 19:50 Completed Urine Culture Stat Lab 12/13/24 19:50 Received Diazepam Inj [Valium Inj] Med 12/13/24 18:40 Discontinued 10 mg .ROUTE .STK-MED ONE Diazepam Inj [Valium Inj] Med 12/13/24 20:10 Discontinued 10 mg IVP X1 ONE Etomidate Inj [Amidate Inj] Med 12/13/24 18:32 Discontinued 20 mg .ROUTE .STK-MED ONE Etomidate Inj [Amidate Inj] Med 12/13/24 20:10 Discontinued 20 mg IVP X1 ONE LORazepam [Ativan Inj] Med 12/13/24 20:10 Discontinued 2 mg IVP X1 ONE Magnesium Sulfate 2 GM Ivpb [Magnesium Sulfate Ivpb] Med 12/13/24 20:27 Discontinued 2 gm in 50 ml IV X1 Midazolam Inj [Versed Inj] Med 12/13/24 20:29 Discontinued 2 mg IV X1 ONE Midazolam Inj [Versed Inj] Med 12/13/24 18:31 Discontinued 4 mg .ROUTE .STK-MED ONE Midazolam/Ns 100 mg Ivpb [Versed Pf Inj in Ns Premix] Med 12/13/24 19:02 Active 100 mg in 100 ml IV 1 mg/hr Rocuronium Inj [Zemuron Inj] Med 12/13/24 18:39 Discontinued 100 mg .ROUTE .STK-MED ONE Rocuronium Inj [Zemuron Inj] Med 12/13/24 20:10 Discontinued 50 mg IVP X1 ONE Sodium Chloride 0.9% 1000 ml [Ns] 1,503 ml Med 12/13/24 18:59 Discontinued IV 1,503 mls/hr Sodium Chloride Rt Amanda 10% [NS Rt Amanda 10%] Med 12/13/24 22:37 Discontinued 5 ml INH X1 ONE Sodium Chloride Rt Amanda 10% [NS Rt Amanda 10%] Med 12/13/24 23:00 Discontinued 5 ml INH X1 ONE Succinylcholine Inj [Anectine Inj] Med 12/13/24 18:32 Discontinued 200 mg .ROUTE .STK-MED ONE cefTRIAXone/D5w 1gm IV premix [Rocephin/D5w 1gm IV Med 12/13/24 21:34 Discontinued premix] 50 ml IV X1 fentaNYL 2,500 MCG/250 ML BAG [Sublimaze Inj 2,500 MCG/ Med 12/13/24 19:03 Active 250 ML BAG] 2,500 mcg in 250 ml IV 25 mcg/hr hydrALAZINE INJ [Apresoline Inj] Med 12/13/24 20:41 Discontinued 10 mg IV X1 ONE levETIRAcetam INJ [Keppra Inj] Med 12/13/24 20:13 Discontinued 1,000 mg IVP X1 ONE Sputum Induction PRN RT 12/13/24 22:45 Ordered Sputum Induction PRN RT 12/13/24 23:00 Ordered Volume Ventilator Stat RT 12/13/24 18:57 Active Vital Signs Vital signs: Vital Signs Temperature 97.8 F 12/13/24 18:46 Pulse Rate 86 12/13/24 18:46 Respiratory Rate 20 12/13/24 18:46 Blood Pressure 157/108 H 12/13/24 18:46 Pulse Oximetry (%) 100 12/13/24 18:46 Oxygen Delivery Method Ambu-Bag 12/13/24 18:46 Procedures -ED EKG Interpretation #1: Additional EKG comment: Patient's EKG at 19:06 showed NSR at 92 with normal axis, no ectopy. No signs of acute ischemia. Intubation Time out performed: Yes sedative: Etomidate Mg Given: 20 paralytic: Rocuronium Mg Given: 50 Laryngoscope: fiber optic video scope Assist Device Used: fiber optic device ET Tube Size: 7 ET Tube Uncuffed: No Tube Secured Depth (cm): 20 Tube Secured Location: teeth Tube Placement Confirmation: visualized tube passing through cords, equal breath sounds bilaterally and no breath sounds over epigastrium Patient Tolerated Procedure: well and no complications Intubation Complications: none Seizure MDM Narrative MDM Narrative:: The differential diagnosis includes a recent epileptic seizure possibly due to an intraparenchymal cerebral bleed or subdural hematoma, brain mass other possibilities include a hemorrhagic stroke or structural brain abnormalities. 80-year-old female from [facility] was brought to the Emergency Department by ambulance for seizure activity. Upon arrival, the patient was intubated to protect the airway and support ventilation, given her critical condition and aspiration risk. ABG results revealed a pH of 7.53, indicating metabolic alkalosis, which, along with hypertension, prompted the administration of 2 amps of bicarbonate. The patient continues to require close monitoring for neurological stability, hemodynamic status, and ongoing ventilatory support. 2040 The patient's blood pressure remains elevated at this time. 10 mg of hydralazine has been administered to help lower the pressure. A CT head is currently pending; if the results show no evidence of intracranial bleed, we will proceed with initiating a continuous IV antihypertensive drip to achieve better blood pressure control. Scribe Attestation: Jax Santana am scribing for and in the presence of Dr. Cleveland. Provider Notation: Although this document has been carefully reviewed, there may still be some phonetic and other typographical errors. These errors are purely grammatical due to imperfections in the software program and should not be construed in any way to compromise the substance of the patient's medical care during this visit. Patient data External records reviewed:: EMS form and Prison records Clinical information provided by:: EMS Social determinants that could affect healthcare access:: none Patient has the following chronic illnesses:: Stroke, HTN, Hypothyroidism, Afib, HLD, Anemia, Dysphagia, Aphasia, Muscle Weakness Per POLST, she is FULL CODE, FULL TREATMENT. Gtube already present. How is presenting disease/condition affected by chronic disease/condition?: uneffected by Evaluation data The following diagnostics were reviewed and interpreted by me:: lab results, radiology exam(s) and EKG tracing(s) Lab and/or radiology exams considered but not ordered:: n/a Interpretation Summary: I personally reviewed the radiology data and agree with the radiologist's interpretation. CXR shows normal cardiac silhouette, normal sharp diaphragmatic edge, no infiltrates, normal costophrenic angles, ET tube is 3-4 cm above the yara, OGT is in good position, according to my interpretation. Technique: AP portable supine chest single view Exam date and time: December 14, 2024 1854 hrs. Indications: Hypoxic respiratory failure postintubation today,. Findings: Normal heart size Tracheal tube tip 4.7 cm above yara Orogastric tube in stomach No aspiration pneumonia Impression: Negative for aspiration pneumonia Endotracheal tube tip 4.7 cm above yara Dictated By: Zander Crump MD Medications / Prescriptions Medications or Prescriptions considered but not ordered:: n/a Medication administrations:: Medication Administration History Midazolam HCl (Versed Pf Inj In Ns Premix) 100 mg in 100 mls @ 1 mls/hr IV .Q24H PRN; Protocol PRN Reason: PER PROTOCOL Stop: 12/18/24 19:01 Last Titration: 12/13/24 21:05 Dose: 3 mg/hr, 3 mls/hr Documented By: Titration: 12/13/24 20:42 Dose: 2 mg/hr, 2 mls/hr Documented By: Admin: 12/13/24 19:25 Dose: 1 mg/hr, 1 mls/hr Documented By: JACKY Co-signed By: LIAM Fentanyl Citrate (Sublimaze Inj 2,500 Mcg/250 Ml Bag) 2,500 mcg in 250 mls @ 2.5 mls/hr IV .Q24H PRN; Protocol PRN Reason: PER PROTOCOL Stop: 12/18/24 19:02 Last Titration: 12/13/24 20:53 Dose: 75 mcg/hr, 7.5 mls/hr Documented By: Admin: 12/13/24 19:27 Dose: 25 mcg/hr, 2.5 mls/hr Documented By: JACKY Co-signed By: LIAM Discontinued Medications Diazepam (Diazepam Inj 5 Mg/Ml Vial 2 Ml) Confirm Administered Dose 10 mg .ROUTE .STK-MED ONE Stop: 12/13/24 18:41 Last Admin: 12/13/24 20:37 Dose: Not Given Documented By: JACKY Non-Admin Reason: Override Medication Diazepam (Diazepam Inj 5 Mg/Ml Vial 2 Ml) 10 mg IVP X1 ONE Stop: 12/13/24 20:11 Last Admin: 12/13/24 18:47 Dose: 10 mg Documented By: Admin: 12/13/24 18:45 Dose: 10 mg Documented By: JACKY Etomidate (Etomidate Inj 2 Mg/Ml Vial 10 Ml) Confirm Administered Dose 20 mg .ROUTE .STK-MED ONE Stop: 12/13/24 18:33 Last Admin: 12/13/24 20:36 Dose: Not Given Documented By: JACKY Non-Admin Reason: Override Medication Etomidate (Etomidate Inj 2 Mg/Ml Vial 10 Ml) 20 mg IVP X1 ONE Stop: 12/13/24 20:11 Last Admin: 12/13/24 18:47 Dose: 20 mg Documented By: JACKY Hydralazine HCl (Hydralazine Inj 20 Mg/Ml Vial) 10 mg IV X1 ONE Stop: 12/13/24 20:42 Last Admin: 12/13/24 21:00 Dose: 10 mg Documented By: JACKY Sodium Chloride (Ns) 1,503 mls @ 1,503 mls/hr 30 ml/kg infuse over 60 min (1503 ml) IV .Q1H ONE Stop: 12/13/24 19:58 Last Admin: 12/13/24 20:57 Dose: 1,503 mls/hr Documented By: JACKY Magnesium Sulfate (Magnesium Sulfate Ivpb) 2 gm in 50 mls @ 25 mls/hr IV X1 ONE Stop: 12/13/24 22:26 Last Admin: 12/13/24 21:07 Dose: 25 mls/hr Documented By: JACKY Ceftriaxone Sodium/Dextrose (Rocephin/D5w 1gm Iv Premix) 50 mls @ 100 mls/hr IV X1 ONE Stop: 12/13/24 22:03 Last Infusion: 12/13/24 23:06 Dose: Infused Documented By: Admin: 12/13/24 22:13 Dose: 100 mls/hr Documented By: JACKY Levetiracetam (Levetiracetam Inj 100 Mg/Ml Vial 5ml) 1,000 mg IVP X1 ONE Stop: 12/13/24 20:14 Last Admin: 12/13/24 21:02 Dose: 1,000 mg Documented By: JACKY Lorazepam (Lorazepam 2 Mg/Ml Vial) 2 mg IVP X1 ONE Stop: 12/13/24 20:11 Last Admin: 12/13/24 22:06 Dose: Not Given Documented By: JACKY Non-Admin Reason: Diazepam given Midazolam HCl (Midazolam Inj 1 Mg/Ml Vial 2 Ml) Confirm Administered Dose 4 mg .ROUTE .STK-MED ONE Stop: 12/13/24 18:32 Last Admin: 12/13/24 20:36 Dose: Not Given Documented By: JACKY Non-Admin Reason: Override Medication Midazolam HCl (Midazolam Inj 1 Mg/Ml Vial 2 Ml) 2 mg IV X1 ONE Stop: 12/13/24 20:30 Last Admin: 12/13/24 18:46 Dose: 2 mg Documented By: JACKY Rocuronium [place] (Rocuronium Inj 10 Mg/Ml Vial 10 Ml) Confirm Administered Dose 100 mg .ROUTE .STK-MED ONE Stop: 12/13/24 18:40 Last Admin: 12/13/24 20:36 Dose: Not Given Documented By: JACKY Non-Admin Reason: Override Medication Rocuronium [place] (Rocuronium Inj 10 Mg/Ml Vial 10 Ml) 50 mg IVP X1 ONE Stop: 12/13/24 20:11 Last Admin: 12/13/24 18:48 Dose: 50 mg Documented By: JACKY Co-signed By: FARRUKH Sodium Chloride (Sodium Chloride Rt 10% 15 Ml Nebu) 5 ml INH X1 ONE Stop: 12/13/24 22:38 Sodium Chloride (Sodium Chloride Rt 10% 15 Ml Nebu) 5 ml INH X1 ONE Stop: 12/13/24 23:01 Succinylcholine Chloride (Succinylcholine Inj 20 Mg/Ml Vial 10 Ml) Confirm Administered Dose 200 mg .ROUTE .STK-MED ONE Stop: 12/13/24 18:33 Last Admin: 12/13/24 20:36 Dose: Not Given Documented By: JACKY Non-Admin Reason: Override Medication as above Consultations Consultation(s) initiated? (list below): Yes Consultation #1 (Physician, Specialty, Details): Discussed case with [the resident physician, attending Dr. Jay] from Hospitalist service regarding admission. Discussed patients ED course, exam findings, labs, and radiology results. The Hospitalist [agrees] to accept the patient for admission. Time: 23:29 Diagnosis Seizure Differential Diagnosis: other (see narrative) Most likely diagnosis given after review of the tests above:: see below Admission Indicated Admission indicated?: indicated Admission Request Was there a request for admission?: Yes Admission Attestation Admission request attestation: Discussed case with [] from Hospitalist service regarding admission. Discussed patients ED course, exam findings, labs, and radiology results. The Hospitalist [agrees,declines] to accept the patient for admission. Disposition Plan Disposition Plan: Admit Critical Care Time Critical Care Time Critical Care Time: Yes Total Critical Care Time (min.): 90 Attestation: The high probability of sudden, clinically significant deterioration in the patient?s condition required the highest level of my preparedness to intervene urgently. ? The services I provided to this patient were to treat and/or prevent clinically significant deterioration. Services included the following: chart data review, reviewing nursing notes and/or old charts, documentation time, residential sales consultant collaboration regarding findings and treatment options, medication orders and management, direct patient care, vital sign assessments and ordering, interpreting and reviewing diagnostic studies and lab tests. ? Aggregate critical care time includes only time during which I was engaged in work directly related to the patient?s care, as described above, whether at bedside or elsewhere in the Emergency Department. It did not include time spent performing other reported procedures or the services of residents, students, nurses or physician assistants. Discharge Plan Problem List Clinical Impression: Hypomagnesemia, Status epilepticus, Acute lactic acidosis, High anion gap metabolic acidosis, Acute UTI Patient/Caregiver Discharge Instructions Print Language: Egyptian
[2024-12-13] MEDS: DIAZEPAM INJ 5 MG/ML VIAL 2 ML 10 MG IVP ×2 (18:45→18:47)
[2024-12-13] MEDS: MIDAZOLAM INJ 1 MG/ML VIAL 2 ML 2 MG IV (18:46)
[2024-12-13] MEDS: ETOMIDATE INJ 2 MG/ML VIAL 10 ML 20 MG IVP (18:47)
[2024-12-13] MEDS: ROCURONIUM INJ 10 MG/ML VIAL 10 ML 50 MG IVP (18:48)
--- NOTE | 2024-12-13 18:51 | XR_ITS ---
Examination: AP chest single view Technique: AP portable supine chest single view Exam date and time: December 14, 2024 1854 hrs. Indications: Hypoxic respiratory failure postintubation today,. Findings: Normal heart size Tracheal tube tip 4.7 cm above yara Orogastric tube in stomach No aspiration pneumonia Impression: Negative for aspiration pneumonia Endotracheal tube tip 4.7 cm above yara
--- NOTE | 2024-12-13 18:59 | EKG_ITS ---
[facility] Test Date: 2024-12-13 Pat Name: ANDRE LEVIN Department: Room: - Gender: Female [employer]: : 1945 Requested By: Case Whitney Order Number: [id number] Reading MD: Case Whitney Measurements Intervals [place] Rate: 92 P: 74 [place]: 183 QRS: 67 QRSD: 92 T: 46 QT: 358 QTc: 444 Interpretive Statements SINUS RHYTHM Compared to ECG 10/12/2024 13:12:11 Atrial fibrillation no longer present Ventricular premature complex(es) no longer present Aberrant conduction of supraventricular beat(s) no longer present ST (T wave) deviation no longer present /store/S0/[id number]/[id number].pdf
--- NOTE | 2024-12-13 19:09 | PD.RESPROC ---
Procedures Procedure Date / Time 12/13/24 1849 Intubation Indication(s): inability to protect airway Informed consent obtained: procedure done urgently Time out done, and the following verified: correct patient and procedure Sedative: etomidate Mg given: 20 Paralytic: rocuronium Mg given: 50 Laryngoscope: fiber optic video scope ET tube size: 7 Tube secured depth (cm): 21 Tube secured location: teeth Tube placement confirmation: visualized tube passing through cords, equal breath sounds bilaterally and confirmation by capnometry Patient tolerated procedure: well
--- NOTE | 2024-12-13 19:23 | XR_ITS ---
Examination: CT brain head without contrast. 2-D sagittal coronal reconstructions Date and time of exam:December 13, 2024 2133 hrs. Indications: Seizure today CTDI: vol (mGy):45.8 DLP: (mGycm):917 Technique: Multiple CT axial sections of the brain have been obtained, 5 mm slice thickness. Contrast has not been administered. 2-D sagittal, coronal reconstructions have been obtained Low dose protocols were performed. One or more of the following dose reduction techniques were used; automated exposure control, adjustment of the mA and/or KV according to patient size, use of iterative reconstruction technique. Findings: Focal edema in the right frontal lobe, 35 mm, suspicious for brain neoplasm Ventricles are not enlarged Low density also in the right frontal parietal lobe axial image 17 with mild hyperdensity, linear in nature, axial image 17 measuring 11 x 1.5 mm Ventricles are not enlarged Fourth ventricle is midline Cranial vault intact Impression: Recommend brain MRI MRA pre and post contrast follow-up to exclude neoplastic lesions in the right frontal lobe and right frontal parietal lobe
--- NOTE | 2024-12-13 19:23 | XR_ITS ---
Examination: CT cervical spine without contrast 2-D sagittal reconstructions 2-D coronal reconstructions 3-D reconstructions. Exam date and time:December 13, 2024 at 0935 hrs. Indications: Seizure today with injury to the neck, neck pain CTDI:vol (mGy) 11.36 DLP: (mGycm) 267 Technique: Multiple 2 mm axial sections of the cervical spine have been obtained. The coronal and sagittal reconstructions have been obtained. 3-D reconstructions have been obtained. Low dose protocols were performed. One or more of the following dose reduction techniques were used; automated exposure control, adjustment of the mA and/or KV according to patient size, use of iterative reconstruction technique. Findings: Axial sections demonstrate intact base of the skull. C1 exhibit satisfactory relationship to the odontoid. No acute cervical vertebral body fracture seen. Alignment posterior spinous processes satisfactory. Impression: No acute cervical fracture.
[2024-12-13 19:25] LABS: Lactate (Lactic Acid) 8.1 mMol/L (0.4-2.0)
[2024-12-13] MEDS: MIDAZOLAM/NS 100 MG IVPB 100 MG/100 ML BAG IV (19:25)
[2024-12-13] MEDS: fentaNYL 2,500 MCG/250 ML BAG 2,500 MCG/250 ML BAG IV (19:27)
[2024-12-13 19:31] LABS: Basophils # (Auto) 0.1 Thou/mm3 (0.0-0.2); Basophils % (Auto) 1 % (0-2.5); Eosinophils # (Auto) 0.3 Thou/mm3 (0.0-0.5); Eosinophils % (Auto) 3 % (0-10); Hematocrit 41.2 % (36.0-46.0); Hemoglobin 13.5 g/dL (12.0-16.0); Immature Granulocytes % (Auto) 0 % (0-0); Immature Granulocytes Auto 0.01 Thou/mm3 (0.00-0.00); Lymphocytes # (Auto) 3.9 Thou/mm3 (1.0-4.8); Lymphocytes % (Auto) 41 % (10-50); Mean Corpuscular HGB Conc 32.8 g/dl (31.0-37.0); Mean Corpuscular Hemoglobin 29.6 pg (25.0-35.0); Mean Corpuscular Volume 90 fL (80-100); Monocytes # (Auto) 0.7 Thou/mm3 (0.0-0.8); Monocytes % (Auto) 8 % (0-12); Neutrophils # (Auto) 4.5 Thou/mm3 (1.8-7.7); Neutrophils % (Auto) 47 % (37-80); Nucleated Red Blood Cell % 0 /100 WBC (0); Platelet Count 560 Thou/mm3 (140-440); RDW Standard Deviation 42.4 fL (36.4-46.3); Red Blood Count 4.56 Miln/mm3 (4.00-5.20); White Blood Count 9.6 Thou/mm3 (3.6-11.0)
[2024-12-13 19:42] LABS: INR 1.2 (0.9-1.3); Partial Thromboplastin Time 24.4 Seconds (22.0-36.0); Prothrombin Time 12.5 Seconds (9.0-12.2)
[2024-12-13 19:57] LABS: B-Type Natriuretic Peptide 65 pg/mL (0-100)
[2024-12-13 20:10] LABS: Alanine Aminotransferase 19 U/L (10-49); Albumin/Globulin Ratio 1.2 (1.2-2.2); Alkaline Phosphatase 70 U/L (46-116); Anion Gap 17 (7-16); Aspartate Amino Transferase 30 U/L (0-34); BUN/Creatinine Ratio 13 Ratio (12-20); Bilirubin,Total 0.4 mg/dL (0.3-1.2); Blood Urea Nitrogen 17 mg/dL (9-23); Calcium 10.6 mg/dL (8.3-10.6); Calcium (Corrected) 10.6 mg/dL (8.5-10.1); Carbon Dioxide 21.1 mMol/L (20.0-31.0); Chloride 102 mMol/L (98-107); Creatine Kinase 57 U/L (34-171); Creatinine (Component) 1.3 mg/dL (0.6-1.3); Estimated Creatinine Clearance 32.7 mL/min (>60); Globulin 3.4 gm/dL (2.3-3.5); Glucose 142 mg/dL (74-106); Lipase 72 U/L (12-53); Magnesium 1.4 mg/dL (1.6-2.6); Osmolality,Calculated 282 (275-295); Phosphorous 4.8 mg/dL (2.4-5.1); Potassium 3.5 mMol/L (3.4-5.1); Procalcitonin 0.11 ng/ml (0.0-0.49); Sodium 140 mMol/L (136-145); Total Protein 7.4 gm/dL (5.7-8.2); Troponin I 0.024 ng/mL (0.0-0.045); eGFR 42 See Note
[2024-12-13 20:10] LABS: Collection Type, Urine Clean Catch
[2024-12-13 20:22] LABS: LDH (Lactate Dehydrogenase) 192 U/L (120-246)
[2024-12-13 20:29] LABS: Amphetamine/Methamp Scrn,U Negative (Negative); Barbiturate Screen,Urine Negative (Negative); Benzodiazepines Screen,Urine Positive (Negative); Benzoylecgonine Screen, Ur Negative (Negative); Fentanyl Screen,Urine Negative (Negative); Opiate Screen,Urine Negative (Negative); THC Screen,Urine Negative (Negative)
[2024-12-13 20:34] LABS: Bacteria,Urine 1+; Bilirubin,Urine Negative (Negative); Blood,Urine Negative (Negative); Clarity,Urine Turbid (Clear/Hazy); Color,Urine Yellow (Lt Yel-Yel); Glucose, Urine Negative (Negative); Ketones,Urine Negative (Negative); Leukocyte Esterase,Urine Positive (Negative); Nitrite,Urine Negative (Negative); Protein,Urine 1+ (Neg - Trace); RBC,Urine 5 /hpf (0-3); Specific Gravity,Urine 1.028 (1.001-1.035); Squamous Epithelial Cell,Urine < 1 /hpf (0-5); Urobilinogen,Urine Negative mg/dL (0.0-1.0); WBC,Urine 134 /hpf (0-5)
[2024-12-13 20:36] LABS: Sperm,Urine Present
[2024-12-13 20:46] LABS: Base Excess 5 (-3-3); HCO3 27 mEq/L (20-26); Inspired O2, VO2 Liters 100 L/min; Inspired Oxygen, FIO2 21 %; O2 Saturation 101 % (91-98); PCO2 33 mmHg (32.0-48.0); PO2 468 mmHg (83-108); pH, Arterial 7.53 (7.35-7.45)
[2024-12-13 20:52] LABS: Allen Test Performed/OK; Puncture Site Right Radial
[2024-12-13] MEDS: SODIUM CHLORIDE 0.9% 1000 ML 1,503 ML 1503 ML IV (20:57)
[2024-12-13] MEDS: hydrALAZINE INJ 20 MG/ML VIAL 10 MG IV (21:00)
[2024-12-13] MEDS: levETIRAcetam INJ 100 MG/ML VIAL 5ML 1000 MG IVP (21:02)
[2024-12-13] MEDS: Magnesium Sulfate 2 GM Ivpb 2 GM/50 ML BAG IV (21:07)
--- NOTE | 2024-12-13 21:51 | PC.NURSE ---
Pt taken to CT at 2135, returned at 2147
[2024-12-13] MEDS: cefTRIAXone/D5w 1gm IV premix 50 ML IV (22:13)
[2024-12-13 22:17] LABS: Reflex Lactate? Y
[2024-12-14] VITALS (108 sets, daily range): BP systolic 105–173; BP diastolic 68–112; PULSE 65–112; RESP 12–26; TEMP 36.2–36.8; O2SAT 94–100; BMI 25.0; BMI 25.2
--- NOTE | 2024-12-14 | XR_ITS ---
Examination: MRI of brain without intravenous contrast. MRI brain with intravenous contrast. Date and time of exam:September 21, 2025 at 1853 hrs. Indications: Seizure activity presenting to the emergency room with brain lesion in the right frontal lobe on CT examination December 13, 2024 Technique: Multiple axial and sagittal images of the brain to been obtained. Siemens high-resolution 1.52 Becky short bore scanner utilized. Sagittal sections, T1 weighted images, TR 500, TE 14, are performed. Axial sections proton-density and T2-weighted images have been obtained. Inversion recovery axial images, TR 9260, TE 111, TR 2500. Diffusion weighted images, axial sections, TR 4800, TE 128, B value 1000. Axial sections, ADC map, TR 4800, TE 128. Axial and coronal images were also obtained post 14 cc gadolinium administered intravenously. Findings:: Enlargement of the sella turcica is not present. The optic chiasm and infundibular stalk are not remarkable. There is no localized enlargement of the medulla or gage. Fourth ventricle and cerebellar tonsils appear normal in position. No subacute area of hemorrhage density is seen. Fourth ventricle is midline. Mass in the cerebellopontine angle region is not evident. 7th and 8th nerve complexes exhibit symmetry Globes are symmetrical Orbital musculature including medial lateral rectus muscles do not exhibit abnormality Increased white matter signal is prominent in the right frontal lobe and periventricular Effacement of the cortical sulcal markings is not identified. Mass effect upon the ventricular system is not identified. Diffusion-weighted images demonstrate restricted diffusion in the right frontal lobe Contrast images demonstrate enhancing right frontal lobe neoplasm, 31 x 30 mm, enhancing lesion mid parietal lobe 19 x 10 mm Impression: Enhancing lesions in the right frontal lobe and right parietal lobe most consistent with neoplastic lesions, consider primary brain tumors, cerebral metastases
--- NOTE | 2024-12-14 00:02 | PD.RESHP ---
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 Per family patient was in her usual state of health and was enjoying the Super Bowl when she suddenly started to have headaches and seizure-like activity. Patient was given Versed by EMS en route to ED. Patient was intubated to protect her airway. Patient was on anticoagulation for A-fib but developed hemorrhagic stroke conversion in November and no longer takes anticoagulation. Per family patient has never had seizures before. ROS unable to obtain due to patient currently being sedated and on mechanical ventilation. Patient has allergies to Bactrim, pravastatin, and promethazine with codeine Patient has no surgical history per family Patient has family history of strokes Patient does not smoke, drink alcohol, or use illicit drugs. Patient is full code. Pertinent labs: Platelets 560, GFR 42, glucose 142, magnesium 1.4, lipase 72, UA positive for RBC, WBC, bacteria. Patient started on Versed drip and fentanyl drip while in ED. Patient given loading dose Keppra and ceftriaxone as well. CT head imaging shows edema in the frontal lobe. Exam Vital Signs Temp Pulse Resp BP Pulse Ox O2 Del Method FiO2 97.8 F 86 24 H 142/81 H 100 Mechanical Ventilation 100 12/13/24 18:46 12/13/24 23:07 12/13/24 23:07 12/13/24 23:07 12/13/24 23:07 12/13/24 23:12/13/24 22:27 Narrative Exam GENERAL: Elderly female. Sedated and on mechanical ventilation. HEENT: Pupils constricted but reactive to light. HEART: Irregularly irregular, no murmurs, rubs, or gallops appreciated. LUNGS: Clear to auscultation bilaterally with symmetrical chest rise. On mechanical ventilation. ABDOMEN: Soft, no grimacing on palpation, There are no abnormal masses palpated. Active bowel sounds. EXTREMITIES: Non-tender. No edema noted in lower extremities. SKIN: Cool and dry, no jaundice or rashes noted. NEURO: Unable to fully assess as patient is sedated. Results: Labs 12/13/24 18:45 12/13/24 18:45 Labs: Short CBC 12/13/24 Range/Units 18:45 WBC 9.6 (3.6-11.0) Thou/mm3 Hgb 13.5 (12.0-16.0) g/dL Hct 41.2 (36.0-46.0) % Plt Count 560 H (140-440) Thou/mm3 BMP 12/13/24 18:45 Sodium 140 Potassium 3.5 Chloride 102 Carbon Dioxide 21.1 BUN 17 Creatinine 1.3 Glucose 142 H Calcium 10.6 Cardiac Enzymes 12/13/24 Range/Units 18:45 Total Creatine Kinase 57 (34-171) U/L Troponin I 0.024 (0.0-0.045) ng/mL Liver Function 12/13/24 Range/Units 18:45 Total Bilirubin 0.4 (0.3-1.2) mg/dL AST 30 (0-34) U/L ALT 19 (10-49) U/L Alkaline Phosphatase 70 (46-116) U/L Albumin 4.0 (3.4-4.8) gm/dL Urine 12/13/24 Range/Units 19:50 Urine Color Yellow (Lt Yel-Yel) Urine Clarity Turbid A (Clear/Hazy) Urine pH 6.0 (5.0-7.0) Ur Specific [place] 1.028 (1.001-1.035) Urine Protein 1+ A (Neg - Trace) Urine Glucose (UA) Negative (Negative) ABG Interpretation ABG results: 12/13/24 20:39 ABG pH 7.53 H ABG pCO2 33 ABG pO2 468 H ABG HCO3 27 H ABG O2 Saturation 101 H ABG Base Excess 5 H Quality Measures Quality Measures none Advance care planning discussed with:: child Medications Home Medications and Allergies Allergies Allergy/AdvReac Type Severity Reaction Status Date / Time codeine Allergy Verified 12/13/24 19:10 pravastatin Allergy Verified 12/13/24 19:10 promethazine (From Phenergan) Allergy Verified 12/13/24 19:10 sulfamethoxazole (From Allergy Verified 12/13/24 19:10 Bactrim) trimethoprim (From Bactrim) Allergy Verified 12/13/24 19:10 Visit Medications Acetaminophen (Acetaminophen Supp 650 Mg Supp) 650 mg HI Q6HR PRN PRN Reason: [id number] Stop: 01/12/25 23:56 Heparin Sodium (Porcine) (Heparin Sod Inj 5000 Unit/Ml Vial) 5,000 unit SC Q12HR [facility] Stop: 12/28/24 08:59 Midazolam HCl (Versed Pf Inj In Ns Premix) 100 mg in 100 mls @ 1 mls/hr IV .Q24H PRN; Protocol PRN Reason: PER PROTOCOL Stop: 12/18/24 19:01 Last Titration: 12/13/24 21:05 Dose: 3 mg/hr, 3 mls/hr Fentanyl Citrate (Sublimaze Inj 2,500 Mcg/250 Ml Bag) 2,500 mcg in 250 mls @ 2.5 mls/hr IV .Q24H PRN; Protocol PRN Reason: PER PROTOCOL Stop: 12/18/24 19:02 Last Titration: 12/13/24 20:53 Dose: 75 mcg/hr, 7.5 mls/hr Ceftriaxone Sodium/Dextrose (Rocephin/D5w 1gm Iv Premix) 50 mls @ 100 mls/hr IV QDAY [facility] Stop: 12/20/24 23:54 Lactated Ringer's (Lactated Ringers) 1,000 mls @ 75 mls/hr IV .[id number] [facility] Stop: 12/14/24 13:04 Levetiracetam (Levetiracetam Inj 100 Mg/Ml Vial 5ml) 1,000 mg IVP Q12HR [facility] Stop: 01/13/25 08:59 Pantoprazole Sodium (Pantoprazole Inj 40 Mg Vial) 40 mg IVP QDAY [facility] Stop: 01/13/25 08:59 Discontinued Medications Diazepam (Diazepam Inj 5 Mg/Ml Vial 2 Ml) 10 mg IVP X1 ONE Stop: 12/13/24 20:11 Last Admin: 12/13/24 18:47 Dose: 10 mg Etomidate (Etomidate Inj 2 Mg/Ml Vial 10 Ml) 20 mg IVP X1 ONE Stop: 12/13/24 20:11 Last Admin: 12/13/24 18:47 Dose: 20 mg Hydralazine HCl (Hydralazine Inj 20 Mg/Ml Vial) 10 mg IV X1 ONE Stop: 12/13/24 20:42 Last Admin: 12/13/24 21:00 Dose: 10 mg Sodium Chloride (Ns) 1,503 mls @ 1,503 mls/hr 30 ml/kg infuse over 60 min (1503 ml) IV .Q1H ONE Stop: 12/13/24 19:58 Last Infusion: 12/13/24 23:49 Dose: Infused Magnesium Sulfate (Magnesium Sulfate Ivpb) 2 gm in 50 mls @ 25 mls/hr IV X1 ONE Stop: 12/13/24 22:26 Last Infusion: 12/13/24 23:47 Dose: Infused Ceftriaxone Sodium/Dextrose (Rocephin/D5w 1gm Iv Premix) 50 mls @ 100 mls/hr IV X1 ONE Stop: 12/13/24 22:03 Last Infusion: 12/13/24 23:06 Dose: Infused Levetiracetam (Levetiracetam Inj 100 Mg/Ml Vial 5ml) 1,000 mg IVP X1 ONE Stop: 12/13/24 20:14 Last Admin: 12/13/24 21:02 Dose: 1,000 mg Lorazepam (Lorazepam 2 Mg/Ml Vial) 2 mg IVP X1 ONE Stop: 12/13/24 20:11 Last Admin: 12/13/24 22:06 Dose: Not Given Midazolam HCl (Midazolam Inj 1 Mg/Ml Vial 2 Ml) 2 mg IV X1 ONE Stop: 12/13/24 20:30 Last Admin: 12/13/24 18:46 Dose: 2 mg Rocuronium [place] (Rocuronium Inj 10 Mg/Ml Vial 10 Ml) 50 mg IVP X1 ONE Stop: 12/13/24 20:11 Last Admin: 12/13/24 18:48 Dose: 50 mg Sodium Chloride (Sodium Chloride Rt 10% 15 Ml Nebu) 5 ml INH X1 ONE Stop: 12/13/24 22:38 Sodium Chloride (Sodium Chloride Rt 10% 15 Ml Nebu) 5 ml INH X1 ONE Stop: 12/13/24 23:01 Assessment & Plan Plan Patient is a 79-year-old female with past medical history of hypertension, hyperlipidemia, hypothyroidism, paroxysmal A-fib not on anticoagulation, and 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 Neuro #Status epilepticus/new onset seizures Per EMS report patient was seizing on arrival and was given Versed CT of the head shows edema in the frontal lobes and parietal lobe with recommendation of MRI/MRA Patient given loading dose Keppra and started on Keppra 1000 twice daily Neurology consulted appreciate recommendations. Patient currently sedated on fentanyl and Versed drip Follow-up MRI/MRA #History of stroke Patient has history of stroke that became hemorrhagic Pending med rec to restart home meds Patient is allergic to pravastatin Aspirin contraindicated in setting of brain bleed earlier this November Cardio #History of paroxysmal A-fib Patient no longer taking anticoagulation due to history of hemorrhagic stroke Patient noted to be rate controlled with beta-blockers #History of hypertension Continue home medications once reconciled Renal #History of CKD Followed by Dr. Salmon Avoid nephrotoxic agents Renally dose medications Continue monitoring creatinine #Hypomagnesemia Continue to monitor and replete Pulm Currently on mechanical ventilation for airway protection GI Stable GI prophylaxis with Protonix Endo #Hypothyroidism Continue home medication ID #UTI UA noted show signs of UTI with positive WBCs and bacteria Patient started on ceftriaxone Follow-up urine cultures and blood cultures Will narrow antibiotics pending results. Heme #Thrombocytosis Reactive VS secondary to medication VS secondary to infection Continue to monitor, might need further workup should remain elevated DVT prophylaxis: Heparin CODE STATUS: Full code Case discussed with attending physician Dr. Misty Farias MD PGY3 Attending Provider Attestation/Addendum I have examined the patient, reviewed labs and imaging findings, discussed the case with the resident(s), and reviewed entered orders. I agree with the plan of care as outlined in this note, with these additional summaries/recommendations: Patient is a 79-year-old female with medical history of CVA, brain bleed October 2024, primary hypertension, hypothyroidism, and dyslipidemia who presents to [facility] emergency department on 12/14/2024 with chief complaint of seizure-like activity. Staff and family at [facility] noted multiple episodes of seizure-like activity which appeared to last more than 5 minutes per family. Per EMS upon arrival patient was actively seizing for more than 1 minute and was given 4 mg intranasal Versed which terminated the seizure. Upon arrival to the emergency department patient was intubated for airway protection and hospitalist team consulted for continuation of care. Neuro #Acute encephalopathy- 2/2 postictal state #Status epilepticus (New Onset) #History of brain bleed October 2024 Per family patient has no history of seizures although was placed on empiric Keppra after discharge for brain bleed in [place] CT Head: Focal edema in right frontal lobe and low-density in right frontal parietal lobe Trigger for seizure-like activity unknown at this time. DDx: Idiopathic versus related to prior stroke versus CVA versus UTI Plan: Started on sedation with Versed and fentanyl. Daily sedation vacation. Received loading dose of Keppra in the ED and will start Keppra 1000 mg IV every 12 hours. Consult neurology, recommendations appreciated. Order MR head and brain with/without. Seizure precautions Cardio #Primary hypertension SBP currently trending in 140s At home patient takes losartan 50 mg p.o. daily, atenolol 50 mg p.o. daily, hydrochlorothiazide 25 mg p.o. daily, and nifedipine 60 mg p.o. daily. Plan: We will reinstitute home antihypertensives as needed. #Paroxysmal atrial fibrillation EKG on admission shows patient is in sinus rhythm Anticoagulation was previously discontinued secondary to brain bleed Plan:Monitor for now, per family patient was taking metoprolol previously but unsure if still taking. Pending med rec. # Dyslipidemia Plan: Per family she takes fenofibrate, awaiting medication reconciliation Pulmonary # Acute respiratory failure Secondary to inability to protect airway CXR negative for aspiration pneumonia and ET tube 4.7 cm above yara S/P intubation 12/13/2024 Plan: Continue mechanical ventilation with volume control. Daily SBT. Repeat ABG in AM. Renal #Lactic Acidosis Most likely type A secondary to Seizure On Admission LA 8.1 which improved to 2.0 Plan: No further intervention needed at this time # Hypomagnesia Mild, mag 1.4 on admission Plan: Replacement ordered and repeat level in a.m. GI #PPI Prophylaxis: Start daily pantoprazole while mechanically ventilated Endo # Hypothyroidism: Order TSH and free T4. Resume home levothyroxine 75 mcg p.o. daily Infectious #?Urinary tract infection Urinalysis indicative of UTI although unclear if patient is having symptoms Urine and blood cultures taken in the emergency department Plan: Start IV Rocephin and follow-up culture results. Repeat hematology panel in AM. Dr. Jay
[2024-12-14] MEDS: RINGERS LACTATED 1000 ML 1,000 ML 75 ML IV (00:43)
[2024-12-14] MEDS: POTASSIUM CHLORIDE 10% 20 MEQ/15 ML UDC 40 MEQ GT (02:13)
[2024-12-14] MEDS: Magnesium Sulfate 4 GM Ivpb 4 GM/50 ML BAG IV (02:17)
--- NOTE | 2024-12-14 05:02 | PC.NURSE ---
REPORT CALLED TO LEEROY HARP. ALL QUESTIONS ASKED AND ANSWERED. IVF FLUIDS CONTINUED TO INFUSE ON TRANSFER. PATIENT ACCOMPANIED BY STAFF TO ICU. NO DISTRESS NOTED ON TRANSFER.
[2024-12-14 05:13] LABS: Basophils # (Auto) 0.1 Thou/mm3 (0.0-0.2); Basophils % (Auto) 1 % (0-2.5); Eosinophils # (Auto) 0.1 Thou/mm3 (0.0-0.5); Eosinophils % (Auto) 1 % (0-10); Hematocrit 36.5 % (36.0-46.0); Hemoglobin 12.7 g/dL (12.0-16.0); Immature Granulocytes % (Auto) 0 % (0-0); Immature Granulocytes Auto 0.04 Thou/mm3 (0.00-0.00); Lymphocytes # (Auto) 2.2 Thou/mm3 (1.0-4.8); Lymphocytes % (Auto) 18 % (10-50); Mean Corpuscular HGB Conc 34.8 g/dl (31.0-37.0); Mean Corpuscular Hemoglobin 30.7 pg (25.0-35.0); Mean Corpuscular Volume 88 fL (80-100); Monocytes % (Auto) 8 % (0-12); Neutrophils # (Auto) 8.6 Thou/mm3 (1.8-7.7); Neutrophils % (Auto) 72 % (37-80); Nucleated Red Blood Cell % 0 /100 WBC (0); Platelet Count 433 Thou/mm3 (140-440); RDW Standard Deviation 41.9 fL (36.4-46.3); Red Blood Count 4.14 Miln/mm3 (4.00-5.20)
[2024-12-14 05:48] LABS: Base Excess 1 (-3-3); HCO3 26 mEq/L (20-26); Inspired Oxygen, FIO2 60 %; O2 Saturation 101 % (91-98); PCO2 39 mmHg (32.0-48.0); PO2 235 mmHg (83-108); pH, Arterial 7.42 (7.35-7.45)
[2024-12-14 05:55] LABS: Allen Test Performed/OK; Puncture Site Right Radial
[2024-12-14] MEDS: LEVOTHYROXINE SODIUM 25 MCG TABLET 75 MCG NG (06:12)
[2024-12-14 07:18] LABS: Alanine Aminotransferase 16 U/L (10-49); Albumin, Serum 3.4 gm/dL (3.4-4.8); Albumin/Globulin Ratio 1.2 (1.2-2.2); Alkaline Phosphatase 63 U/L (46-116); Anion Gap 10 (7-16); Aspartate Amino Transferase 29 U/L (0-34); BUN/Creatinine Ratio 15 Ratio (12-20); Bilirubin,Total 0.4 mg/dL (0.3-1.2); Blood Urea Nitrogen 15 mg/dL (9-23); Calcium 9.5 mg/dL (8.3-10.6); Carbon Dioxide 22.8 mMol/L (20.0-31.0); Cardiac Risk Estimate 4.4 RATIO (3.7-5.6); Chloride 105 mMol/L (98-107); Cholesterol 175 mg/dL (132-200); Estimated Creatinine Clearance 42.6 mL/min (>60); Free T4 (Free Thyroxine) 1.05 ng/dL (0.89-1.76); Globulin 2.9 gm/dL (2.3-3.5); Glucose 108 mg/dL (74-106); HDL Cholesterol 40 mg/dL (40-60); LDL Cholesterol,Calculated 93 mg/dL (0-130); Magnesium 2.4 mg/dL (1.6-2.6); Osmolality,Calculated 277 (275-295); Phosphorous 2.5 mg/dL (2.4-5.1); Potassium 4.2 mMol/L (3.4-5.1); Sodium 138 mMol/L (136-145); Thyroid Stimulating Hormone 59.24 uIU/mL (0.55-4.78); Total Protein 6.3 gm/dL (5.7-8.2); Triglycerides 208 mg/dL (30-150); eGFR 57 See Note
--- NOTE | 2024-12-14 08:03 | ESPR_ITS ---
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 Per family patient was in her usual state of health and was enjoying the Super Bowl when she suddenly started to have headaches and seizure-like activity. Patient was given Versed by EMS en route to ED. Patient was intubated to protect her airway. Patient was on anticoagulation for A-fib but developed hemorrhagic stroke conversion in November and no longer takes anticoagulation. Per family patient has never had seizures before. ROS unable to obtain due to patient currently being sedated and on mechanical ventilation. Pertinent labs: Platelets 560, GFR 42, glucose 142, magnesium 1.4, lipase 72, UA positive for RBC, WBC, bacteria. Patient started on Versed drip and fentanyl drip while in ED. Patient given loading dose Keppra and ceftriaxone as well. CT head imaging shows edema in the frontal lobe. 12/14/2024: Patient admitted overnight to ICU after being intubated for airway protection. Patient reportedly had seizure at SNF and was brought to the ED. Upon arrival to the ED she was intubate for airway protection and started on Fentayl and Midazolam GTT. This AM all sedation was discontinued. Patient still minimally responsive and only responing to sternal rub. Patient underwent CT head with being read as focal edema in the Right frontal lobe suspicious for brain neoplasm. Will follow up with MRI and EEG, currently pending. TSH elevated at 59. WIll increase home levothyroxine to 112 mcg ACBR. Patient has known history of CKD followed by Dr. Katlyn Hsu. GFR 57 stage 3A. Patient noted to have minimal output. Will administer Lasix. If urine out does not increase, will consult nephrology. Exam Vital Signs Temp Pulse Resp BP Pulse Ox O2 Del Method FiO2 97.8 F 86 16 136/91 H 100 Mechanical Ventilation 55 12/13/24 18:46 12/14/24 07:30 12/14/24 07:30 12/14/24 07:30 12/14/24 07:30 12/13/24 23:07 12/14/24 07:48 Narrative Exam General: GCS 8T HEENT: NC/AT, NT, puppilary response sluggish, ETT in place Lungs: CTAB, no wheezing, rhonci CVS: S1S2, RRR ABD: soft, non-distended, non-tender, presence of PEG tube noted, does not appear infected but is malodorous : Avalos in place, EXT: radial pulses 2+ BL, DP pulses 2 + BL, Neuro: limited, withdraws right upper and lower extremities, does not withdraw left upper and lower extremities Objective Labs 12/14/24 04:28 12/14/24 04:28 Labs: Laboratory Results - last 24 hr 12/13/24 12/13/24 12/13/24 18:45 19:50 20:39 WBC 9.6 RBC 4.56 Hgb 13.5 Hct 41.2 MCV 90 MCH 29.6 MCHC 32.8 RDW Std Deviation 42.4 Plt Count 560 H Neut % (Auto) 47 Lymph % (Auto) 41 [place] % (Auto) 8 Eos % (Auto) 3 Baso % (Auto) 1 Neut # (Auto) 4.5 Lymph # (Auto) 3.9 [place] # (Auto) 0.7 Eos # (Auto) 0.3 Baso # (Auto) 0.1 Immature Gran # (Auto) 0.01 H Absolute Nucleated RBC 0.00 Immature Gran % 0 Nucleated RBC % 0 PT 12.5 H INR 1.2 APTT 24.4 Puncture Site Right Radial ABG pH 7.53 H ABG pCO2 33 ABG pO2 468 H ABG HCO3 27 H ABG O2 Saturation 101 H ABG Base Excess 5 H Oxygen Liter Flow 100 FiO2 21 Sodium 140 Potassium 3.5 Chloride 102 Carbon Dioxide 21.1 Anion Gap 17 H BUN 17 Creatinine 1.3 Estim Creat Clear Calc 32.7 L eGFR 42 L BUN/Creatinine Ratio 13 Glucose 142 H Calculated Osmolality 282 Lactic Acid 8.1 H* Calcium 10.6 Corrected Calcium 10.6 H Phosphorus 4.8 Magnesium 1.4 L Total Bilirubin 0.4 AST 30 ALT 19 Alkaline Phosphatase 70 Lactate Dehydrogenase 192 Total Creatine Kinase 57 Troponin I 0.024 B-Natriuretic Peptide 65 Total Protein 7.4 Albumin 4.0 Globulin 3.4 Albumin/Globulin Ratio 1.2 Triglycerides Cholesterol LDL Cholesterol, Calc HDL Cholesterol Cholesterol/HDL Ratio Lipase 72 H Procalcitonin 0.11 TSH Free T4 Ur Collection Type Clean Catch Urine Color Yellow Urine Clarity Turbid A Urine pH 6.0 Ur Specific [place] 1.028 Urine Protein 1+ A Urine Glucose (UA) Negative Urine Ketones Negative Urine Blood Negative Urine Nitrite Negative Urine Bilirubin Negative Urine Urobilinogen (Auto) Negative Ur Leukocyte Esterase Positive Urine RBC 5 H Urine WBC 134 H Ur Squamous Epith Cells < 1 Urine Bacteria 1+ A Urine Sperm Present A Urine Opiates Screen Negative Urine Fentanyl Screen Negative Ur Barbiturates Screen Negative U Amphetamin/Meth Scrn Negative U Benzodiazepines Scrn Positive A U Cocaine Metab Screen Negative U Marijuana (THC) Screen Negative 12/13/24 12/14/24 12/14/24 22:38 04:28 05:34 WBC 12.0 H RBC 4.14 Hgb 12.7 Hct 36.5 MCV 88 MCH 30.7 MCHC 34.8 RDW Std Deviation 41.9 Plt Count 433 D Neut % (Auto) 72 Lymph % (Auto) 18 [place] % (Auto) 8 Eos % (Auto) 1 Baso % (Auto) 1 Neut # (Auto) 8.6 H Lymph # (Auto) 2.2 [place] # (Auto) 1.0 H Eos # (Auto) 0.1 Baso # (Auto) 0.1 Immature Gran # (Auto) 0.04 H Absolute Nucleated RBC 0.00 Immature Gran % 0 Nucleated RBC % 0 PT INR APTT Puncture Site Right Radial ABG pH 7.42 D ABG pCO2 39 ABG pO2 235 H D ABG HCO3 26 ABG O2 Saturation 101 H ABG Base Excess 1 Oxygen Liter Flow FiO2 60 Sodium 138 Potassium 4.2 D Chloride 105 Carbon Dioxide 22.8 Anion Gap 10 BUN 15 Creatinine 1.0 Estim Creat Clear Calc 42.6 L eGFR 57 L BUN/Creatinine Ratio 15 Glucose 108 H Calculated Osmolality 277 Lactic Acid 2.0 Calcium 9.5 Corrected Calcium 10.0 Phosphorus 2.5 Magnesium 2.4 Total Bilirubin 0.4 AST 29 ALT 16 Alkaline Phosphatase 63 Lactate Dehydrogenase Total Creatine Kinase Troponin I B-Natriuretic Peptide Total Protein 6.3 Albumin 3.4 D Globulin 2.9 Albumin/Globulin Ratio 1.2 Triglycerides 208 H Cholesterol 175 LDL Cholesterol, Calc 93 HDL Cholesterol 40 Cholesterol/HDL Ratio 4.4 Lipase Procalcitonin TSH 59.24 H* Free T4 1.05 Ur Collection Type Urine Color Urine Clarity Urine pH Ur Specific [place] Urine Protein Urine Glucose (UA) Urine Ketones Urine Blood Urine Nitrite Urine Bilirubin Urine Urobilinogen (Auto) Ur Leukocyte Esterase Urine RBC Urine WBC Ur Squamous Epith Cells Urine Bacteria Urine Sperm Urine Opiates Screen Urine Fentanyl Screen Ur Barbiturates Screen U Amphetamin/Meth Scrn U Benzodiazepines Scrn U Cocaine Metab Screen U Marijuana (THC) Screen ABG Interpretation ABG results: 12/13/24 12/14/24 20:39 05:34 ABG pH 7.53 H 7.42 D ABG pCO2 33 39 ABG pO2 468 H 235 H D ABG HCO3 27 H 26 ABG O2 Saturation 101 H 101 H ABG Base Excess 5 H 1 Quality Measures Quality Measures none Advance care planning discussed with:: child Assessment & Plan Assessment Current Active Medications: Generic Name Dose Route Start Last Admin Trade Name Freq PRN Reason Stop Dose Admin Acetaminophen 650 mg 12/13/24 23:57 Acetaminophen Supp 650 Mg Supp WI 01/12/25 23:56 Q6HR PRN [id number] Atenolol 50 mg 12/14/24 09:00 Atenolol 25 Mg Tablet PO 01/13/25 08:59 QAM JOHNY Heparin Sodium (Porcine) 5,000 unit 12/14/24 09:00 Heparin Sod Inj 5000 Unit/Ml Vial SC 12/28/24 08:59 Q12HR JOHNY Ceftriaxone Sodium/Dextrose 50 mls @ 100 mls/hr 12/14/24 21:00 Rocephin/D5w 1gm Iv Premix IV 12/21/24 20:59 HS JOHNY Lactated Ringer's 1,000 mls @ 75 mls/hr 12/13/24 23:45 12/14/24 00:43 Lactated Ringers IV 12/14/24 13:04 75 mls/hr .[id number] JOHNY Administration Midazolam HCl 100 mg in 100 mls @ 1 mls/hr 12/14/24 00:47 Versed Pf Inj In Ns Premix IV 12/18/24 19:01 .Q24H PRN PER PROTOCOL Protocol 1 MG/HR Fentanyl Citrate 2,500 mcg in 250 mls @ 2.5 mls/hr 12/14/24 00:47 Sublimaze Inj 2,500 Mcg/250 Ml Bag IV 12/18/24 19:02 .Q24H PRN PER PROTOCOL Protocol 25 MCG/HR Levetiracetam 1,000 mg 12/14/24 09:00 Levetiracetam Inj 100 Mg/Ml Vial 5ml IVP 01/13/25 08:59 Q12HR JOHNY Levothyroxine Sodium 75 mcg 12/14/24 06:00 12/14/24 06:12 Levothyroxine Sodium 25 Mcg Tablet NG 01/13/25 05:59 75 mcg ACBR JOHNY Administration Pantoprazole Sodium 40 mg 12/14/24 09:00 Pantoprazole Inj 40 Mg Vial IVP 01/13/25 08:59 QDAY JOHNY Plan Assessment & Plan Neurological #Acute Encephalopathy secondary to New Onset Seizure #Status epilepticus #History of Stroke w/ Hemorrhagic conversion (11/2024) Patient presented to the ED after suffering a new onset seizure. Per family, sezure was >5 mins concerning for status epilepticus. Patient was administered Versed (Midazolam ) 4 mg by EMS in the field. Patient was subsequently intubated in the ED and started on Fentanyl and Versed GTT. Sedation has since been discontinued with no seizure activity noted thus far. -Neurology consulted, appreciate recommendations -Continue Keppra 1000mg BID -MRI: Pending -EEG: Pending Cardiology #Atrial Fibrillation, paroxysmal - resolved -Patient currently rate and rythm controlled, however noted to go in and out of atrial fibrillation. -No anticoagulation due to history of hemorrhagic conversion. Pulmonary #Acute Respiratory Failure Patient intubated for airway protection. Patient still intubated due to having GCS of 8T. -Follow up AM ABG and will wean as tolerated -Will consider SBT in AM. Gastrointestinal GI PXP: Pantoprazole 40 mg IV qday Renal/Genitourinary #CKD stage 3A GFR 57 Minimal urinary output, will administer Lasix in attempt to increase urinary output. If does not increase, will consult nephrology #Lactic acidosis- resolved # Endocrine #Hypothyroidism TSH: 59.24, free T4 -Increase Levothyroxine to 112 mcg ACBR Hemetology #Leuckocytosis Most likely reactive secondary to seizure #Thrombocytosis - resolved Will continue to monitor platelets QAM. Infectious Disease #UTI Urine analysis: Plus protein, 2+ blood, 3+ leukocyte esterase, 2+ bacteriuria -F/U urine culture and blood cultures -Antibiotic regimen: Continue ceftriaxone 1 g every 24 hours Skin - no acute issues, no evidence of skin breakdown Fluids Electrolytes Nutrition: Analgesia: N/A Sedation: N/A Thromboprophylaxis: Heparin 5000 units SC q8hrs Head up position: N/A Ulcer prophylaxis: Pantoprazole 40 mg QD Glycemic control: N/A Spontaneous breathing trial: Bowel regimen: NA Indwelling catheter: Avalos CODE STATUS: Full code Patient's case was discussed with supervising attending physician Dr. Roger Ambrosio M.D. Internal Medicine PGY-3
[2024-12-14] MEDS: PANTOPRAZOLE INJ 40 MG VIAL IVP (08:34)
[2024-12-14] MEDS: HEPARIN SOD INJ 5000 UNIT/ML VIAL SC ×2 (08:34→21:12)
[2024-12-14] MEDS: atenoloL 25 MG TABLET 50 MG PO (08:37)
[2024-12-14] MEDS: levETIRAcetam INJ 100 MG/ML VIAL 5ML 1000 MG IVP ×2 (08:37→21:12)
--- NOTE | 2024-12-14 10:26 | PC.SS ---
PHYSICIAN ASSISTANT SURGERY conducted bedside contact with the patient conduct initial assessment and to discuss discharge planning.? At bedside with patient was daughter, Cat Castillo .? Patient currently in ICU on mechanical ventilator.? Patient is a short term resident of [facility].? Patient utilizes a wheelchair to assist with mobility.? Patient does not utilize oxygen at the facility.? Patient requires assistance with completion of ADL?s.? Patient?s medical surrogate decision maker is amanda, Cat Castillo.? Patient?s daughter, Cat Castillo; is the patient?s medical POA.? Patient?s PCP is Ping Guerrero.? The patient?s commissioning editor is Dr. Salmon.? The patient does not participate with dialysis.? Patient utilizes [facility] for medication services.? Discharge plan for the patient is pending.? If patient discharges to SNF, family does not want the patient to return to [facility].? If patient transitions home it will be with home health if patient qualifies.? No further intervention required at this time, manager social will be available to address any further concerns.? Next of Kin: Cat Castillo D/C Plan: Pending
--- NOTE | 2024-12-14 12:41 | RESP.EEG ---
EEG COMPLETED AND WAITING TO BE READ, DR Alvarado IS AWARE
[2024-12-14] MEDS: FUROSEMIDE INJ 10 MG/ML VIAL 2 ML 40 MG IVP (14:52)
--- NOTE | 2024-12-14 15:01 | ESPR_ITS ---
Documentation for date of: 12/14/24 Subjective Subjective Interval history: This is a 79yo F admitted to the ICU for acute hypoxic resp failure 2/2 ongoing seizure activity. She was started on a versed gtt and fentanyl gtt and admitted to the ICU. This AM the versed gtt was turned off and then the fentanyl gtt. per family she has trouble with any form of sedating meds and barely takes tylenol at home. She has a h/o ischemic CVA s/p TNK with hemorrhagic conversion. Neurology was consulted from ER and recs were for yumiko. Critical Care Note Critical care time (min.): 40 Exam Vital Signs Temp Pulse Resp BP Pulse Ox O2 Del Method FiO2 98.2 F 86 15 133/89 H 96 Mechanical Ventilation 21 12/14/24 12:00 12/14/24 14:52 12/14/24 14:00 12/14/24 14:52 12/14/24 14:17 12/13/24 23:07 12/14/24 14:17 Narrative Exam Gen- NAD, intubated, sedated, elderly, nl body habitus HEENT- NC/AT, mucosa hydrated, sclera anicteric, ETT/OGT in place Chest- LCTAB, HRRR, no increase in WOB Abd- s/nt/bs+, PEG in place Ext- min edema, pulses palp, no clubbing, no mottling Vent AC VC Physical Exam Completion Physical Exam Complete?: Yes Objective - [employer]rolley [employer] Labs 12/14/24 04:28 12/14/24 04:28 Labs: Laboratory Results - last 24 hr 12/13/24 12/13/24 12/13/24 18:45 19:50 20:39 WBC 9.6 RBC 4.56 Hgb 13.5 Hct 41.2 MCV 90 MCH 29.6 MCHC 32.8 RDW Std Deviation 42.4 Plt Count 560 H Neut % (Auto) 47 Lymph % (Auto) 41 [place] % (Auto) 8 Eos % (Auto) 3 Baso % (Auto) 1 Neut # (Auto) 4.5 Lymph # (Auto) 3.9 [place] # (Auto) 0.7 Eos # (Auto) 0.3 Baso # (Auto) 0.1 Immature Gran # (Auto) 0.01 H Absolute Nucleated RBC 0.00 Immature Gran % 0 Nucleated RBC % 0 PT 12.5 H INR 1.2 APTT 24.4 Puncture Site Right Radial ABG pH 7.53 H ABG pCO2 33 ABG pO2 468 H ABG HCO3 27 H ABG O2 Saturation 101 H ABG Base Excess 5 H Oxygen Liter Flow 100 FiO2 21 Sodium 140 Potassium 3.5 Chloride 102 Carbon Dioxide 21.1 Anion Gap 17 H BUN 17 Creatinine 1.3 Estim Creat Clear Calc 32.7 L eGFR 42 L BUN/Creatinine Ratio 13 Glucose 142 H Calculated Osmolality 282 Lactic Acid 8.1 H* Calcium 10.6 Corrected Calcium 10.6 H Phosphorus 4.8 Magnesium 1.4 L Total Bilirubin 0.4 AST 30 ALT 19 Alkaline Phosphatase 70 Lactate Dehydrogenase 192 Total Creatine Kinase 57 Troponin I 0.024 B-Natriuretic Peptide 65 Total Protein 7.4 Albumin 4.0 Globulin 3.4 Albumin/Globulin Ratio 1.2 Triglycerides Cholesterol LDL Cholesterol, Calc HDL Cholesterol Cholesterol/HDL Ratio Lipase 72 H Procalcitonin 0.11 TSH Free T4 Ur Collection Type Clean Catch Urine Color Yellow Urine Clarity Turbid A Urine pH 6.0 Ur Specific [place] 1.028 Urine Protein 1+ A Urine Glucose (UA) Negative Urine Ketones Negative Urine Blood Negative Urine Nitrite Negative Urine Bilirubin Negative Urine Urobilinogen (Auto) Negative Ur Leukocyte Esterase Positive Urine RBC 5 H Urine WBC 134 H Ur Squamous Epith Cells < 1 Urine Bacteria 1+ A Urine Sperm Present A Urine Opiates Screen Negative Urine Fentanyl Screen Negative Ur Barbiturates Screen Negative U Amphetamin/Meth Scrn Negative U Benzodiazepines Scrn Positive A U Cocaine Metab Screen Negative U Marijuana (THC) Screen Negative 12/13/24 12/14/24 12/14/24 22:38 04:28 05:34 WBC 12.0 H RBC 4.14 Hgb 12.7 Hct 36.5 MCV 88 MCH 30.7 MCHC 34.8 RDW Std Deviation 41.9 Plt Count 433 D Neut % (Auto) 72 Lymph % (Auto) 18 Lamb % (Auto) 8 Eos % (Auto) 1 Baso % (Auto) 1 Neut # (Auto) 8.6 H Lymph # (Auto) 2.2 Lamb # (Auto) 1.0 H Eos # (Auto) 0.1 Baso # (Auto) 0.1 Immature Gran # (Auto) 0.04 H Absolute Nucleated RBC 0.00 Immature Gran % 0 Nucleated RBC % 0 PT INR APTT Puncture Site Right Radial ABG pH 7.42 D ABG pCO2 39 ABG pO2 235 H D ABG HCO3 26 ABG O2 Saturation 101 H ABG Base Excess 1 Oxygen Liter Flow FiO2 60 Sodium 138 Potassium 4.2 D Chloride 105 Carbon Dioxide 22.8 Anion Gap 10 BUN 15 Creatinine 1.0 Estim Creat Clear Calc 42.6 L eGFR 57 L BUN/Creatinine Ratio 15 Glucose 108 H Calculated Osmolality 277 Lactic Acid 2.0 Calcium 9.5 Corrected Calcium 10.0 Phosphorus 2.5 Magnesium 2.4 Total Bilirubin 0.4 AST 29 ALT 16 Alkaline Phosphatase 63 Lactate Dehydrogenase Total Creatine Kinase Troponin I B-Natriuretic Peptide Total Protein 6.3 Albumin 3.4 D Globulin 2.9 Albumin/Globulin Ratio 1.2 Triglycerides 208 H Cholesterol 175 LDL Cholesterol, Calc 93 HDL Cholesterol 40 Cholesterol/HDL Ratio 4.4 Lipase Procalcitonin TSH 59.24 H* Free T4 1.05 Ur Collection Type Urine Color Urine Clarity Urine pH Ur Specific [place] Urine Protein Urine Glucose (UA) Urine Ketones Urine Blood Urine Nitrite Urine Bilirubin Urine Urobilinogen (Auto) Ur Leukocyte Esterase Urine RBC Urine WBC Ur Squamous Epith Cells Urine Bacteria Urine Sperm Urine Opiates Screen Urine Fentanyl Screen Ur Barbiturates Screen U Amphetamin/Meth Scrn U Benzodiazepines Scrn U Cocaine Metab Screen U Marijuana (THC) Screen Assessment & Plan Additional Assessment Additional Assessment: In summary this is a 79yo F admitted to the ICU with acute hypoxic resp failure and seizure a/p FURNITURE DIPPER Seizure- no current activity noted - loaded on keppra - EEG ordered - neuro recs appreciated - sedation held this AM versed/fentanyl h/o CVA CV Dyslipidemia- cont home meds Resp Acute Hypoxic Resp Failure- currently intubated , off sedation now, on MV, - fu with ABG and CXR - ween vent as able Renal CKD- follows with nephro as an outpt - min UOP today - given lasix 40mg IV x1 GI GI proph- PPI Endo Hypothyroid- TSH noted to be high - increase levothyroxine Heme Leukocytosis- ? reactive in nature DVT proph- heparin [id number] ID ? Aspiration- on ceftri case d/w ICU team d/w neuro labs, imaging, records reviewed ~ 40ccmin required for eval, exam, review, intervention, discussion and formulation of POC for this critically ill pt with sz and resp failure at high risk for further and ongoing decompensation Provider Notation Provider Notation: Although this document has been carefully reviewed, there may still be some phonetic and other typographical errors. These errors are purely grammatical due to imperfections in the software program and should not be construed in any way to compromise the substance of the patient's medical care during this visit. Thank you for the opportunity and privilege in assisting you with this patient's care and management.
--- NOTE | 2024-12-14 15:22 | PC.NURSE ---
0700 MD Ambrosio made aware of patients urine output 115ml overnight for Noc shift. At 0915 during rounds made aware that the patient output has been 5ml hour for since start of my shift. At 1400 MD Duran made aware that the patients output has not increased and has continued to stay at 5ml per hour, orders given for Lasix x1. Will continue to monitor patient.
--- NOTE | 2024-12-14 15:54 | PC.DIETICIAN ---
Nutrition prescription If EN is indicated, consider: Jevity 1.2 at 20 ml/hr via OG/PEG tube by pump. Advance 10 ml every 8 hrs to goal rate of 55 ml/hr x 22 hrs. If no IV fluids, water flushes of 25 ml/hr x 22 hrs (or per MD). -Hold TF for one hour before and after levothyroxine administration-
[2024-12-14] MEDS: MIDAZOLAM INJ 1 MG/ML VIAL 2 ML 2 MG IV (18:45)
[2024-12-14] MEDS: cefTRIAXone/D5w 1gm IV premix 50 ML IV (21:12)
--- NOTE | 2024-12-14 23:48 | ESPR_ITS ---
Documentation for date of: 12/14/24 Subjective Subjective Interval history: Patient was seen in ICU today at the bedside. Continue to have dense left hemiplegia with spasticity and contracture. She does have purposeful movements involving the right upper and lower extremities and on commands. Has not had any seizures since admission. Exam - Neurology Vital Signs Temp Pulse Resp BP Pulse Ox O2 Del Method FiO2 97.1 F 71 15 107/68 98 Mechanical Ventilation 21 12/14/24 20:15 12/14/24 23:30 12/14/24 23:30 12/14/24 23:30 12/14/24 23:30 12/14/24 20:15 12/14/24 22:30 Narrative Exam GENERAL APPEARANCE: Well hydrated, well-nourished intubated and on mechanical ventilatory support HEENT: Normocephalic, atraumatic, extraocular movements intact. Pupils: Equal reacting to light NECK: Supple, no JVD or bruits. CARDIOVASULAR: Heart: S1, S2 heard, regular without S3-S4 or murmur no rubs or gallops. LUNGS/CHEST: Clear to auscultation bilaterally. No rails, rhonchi, or wheezing. Normal inspection. ABDOMEN: Soft, nontender, with normal bowel sounds. No pulsatile masses. No rebound, rigidity, or guarding. Normal inspection and palpation. EXTREMITIES: Normal inspection and palpation. No edema, clubbing or cyanosis. SKIN: Warm and dry without rashes. Normal inspection. MUSCULOSKELETAL: No cervical, thoracic, lumbar or midline bony tenderness. Normal inspection. NEURO: Patient is lethargic, inconsistently responding to verbal commands with right upper and lower extremities. Dense left hemiplegia with spasticity and contracture noted. Rest of the exam: Limited. PSYCHIATRIC: Limited Objective Labs 12/14/24 04:28 12/14/24 04:28 Labs: Laboratory Results - last 24 hr 12/14/24 12/14/24 04:28 05:34 WBC 12.0 H RBC 4.14 Hgb 12.7 Hct 36.5 MCV 88 MCH 30.7 MCHC 34.8 RDW Std Deviation 41.9 Plt Count 433 D Neut % (Auto) 72 Lymph % (Auto) 18 [place] % (Auto) 8 Eos % (Auto) 1 Baso % (Auto) 1 Neut # (Auto) 8.6 H Lymph # (Auto) 2.2 [place] # (Auto) 1.0 H Eos # (Auto) 0.1 Baso # (Auto) 0.1 Immature Gran # (Auto) 0.04 H Absolute Nucleated RBC 0.00 Immature Gran % 0 Nucleated RBC % 0 Puncture Site Right Radial ABG pH 7.42 D ABG pCO2 39 ABG pO2 235 H D ABG HCO3 26 ABG O2 Saturation 101 H ABG Base Excess 1 FiO2 60 Sodium 138 Potassium 4.2 D Chloride 105 Carbon Dioxide 22.8 Anion Gap 10 BUN 15 Creatinine 1.0 Estim Creat Clear Calc 42.6 L eGFR 57 L BUN/Creatinine Ratio 15 Glucose 108 H Calculated Osmolality 277 Calcium 9.5 Corrected Calcium 10.0 Phosphorus 2.5 Magnesium 2.4 Total Bilirubin 0.4 AST 29 ALT 16 Alkaline Phosphatase 63 Total Protein 6.3 Albumin 3.4 D Globulin 2.9 Albumin/Globulin Ratio 1.2 Triglycerides 208 H Cholesterol 175 LDL Cholesterol, Calc 93 HDL Cholesterol 40 Cholesterol/HDL Ratio 4.4 TSH 59.24 H* Free T4 1.05 ABG Interpretation ABG results: 12/13/24 12/14/24 20:39 05:34 ABG pH 7.53 H 7.42 D ABG pCO2 33 39 ABG pO2 468 H 235 H D ABG HCO3 27 H 26 ABG O2 Saturation 101 H 101 H ABG Base Excess 5 H 1 Assessment & Plan Assessment and plan (1) Acute right MCA stroke: Status: Acute Assessment and plan: Continue with range of motion exercises on the left upper and lower extremities. MRI brain showed findings consistent with large infarct in the right frontal and parietal area.(Bright signal on DWI indicating restricted diffusion and low signal on the ADC map confirming restricted diffusion) In my opinion it is not suggestive of brain mets (Mets ypically shows less diffusion restriction that appears hypointense on DWI with a relatively higher ADC value). Will go ahead and get the imaging studies from October and November from [facility] for comparison. Will hold off on antiplatelet/anticoagulant therapy because of the recent intracerebral hemorrhage event. (2) Status epilepticus: Status: Acute Assessment and plan: No seizures reported after admission, continue with Keppra, wean her off of sedation and see for mental status improvement (3) Acute UTI: Status: Acute Assessment and plan: Continue with antibiotics and follow-up with the culture and sensitive
[2024-12-15] VITALS (37 sets, daily range): BP systolic 97–156; BP diastolic 57–91; PULSE 63–115; RESP 11–25; TEMP 35.7–37; O2SAT 93–99
[2024-12-15 03:50] LABS: Base Excess 4 (-3-3); HCO3 27 mEq/L (20-26); Inspired Oxygen, FIO2 21 %; O2 Saturation 99 % (91-98); PCO2 33 mmHg (32.0-48.0); PO2 102 mmHg (83-108); pH, Arterial 7.51 (7.35-7.45)
[2024-12-15 03:52] LABS: Allen Test Performed/OK; Puncture Site Right Radial
[2024-12-15 05:39] LABS: Basophils # (Auto) 0.1 Thou/mm3 (0.0-0.2); Basophils % (Auto) 0 % (0-2.5); Eosinophils % (Auto) 0 % (0-10); Hematocrit 39.5 % (36.0-46.0); Immature Granulocytes % (Auto) 1 % (0-0); Immature Granulocytes Auto 0.12 Thou/mm3 (0.00-0.00); Lymphocytes # (Auto) 2.5 Thou/mm3 (1.0-4.8); Lymphocytes % (Auto) 12 % (10-50); Mean Corpuscular HGB Conc 32.9 g/dl (31.0-37.0); Mean Corpuscular Volume 91 fL (80-100); Monocytes # (Auto) 1.2 Thou/mm3 (0.0-0.8); Monocytes % (Auto) 6 % (0-12); Neutrophils # (Auto) 16.3 Thou/mm3 (1.8-7.7); Neutrophils % (Auto) 81 % (37-80); Nucleated Red Blood Cell % 0 /100 WBC (0); Platelet Count 461 Thou/mm3 (140-440); Red Blood Count 4.34 Miln/mm3 (4.00-5.20)
[2024-12-15] MEDS: LEVOTHYROXINE SODIUM 112 MCG TABLET NG (05:50)
[2024-12-15 05:54] LABS: White Blood Count 20.2 Thou/mm3 (3.6-11.0)
[2024-12-15 06:34] LABS: Alanine Aminotransferase 21 U/L (10-49); Albumin, Serum 3.9 gm/dL (3.4-4.8); Albumin/Globulin Ratio 1.2 (1.2-2.2); Alkaline Phosphatase 76 U/L (46-116); Anion Gap 13 (7-16); Aspartate Amino Transferase 40 U/L (0-34); BUN/Creatinine Ratio 15 Ratio (12-20); Bilirubin,Total 0.6 mg/dL (0.3-1.2); Blood Urea Nitrogen 18 mg/dL (9-23); Calcium 10.5 mg/dL (8.3-10.6); Calcium (Corrected) 10.6 mg/dL (8.5-10.1); Carbon Dioxide 24.4 mMol/L (20.0-31.0); Chloride 100 mMol/L (98-107); Creatinine (Component) 1.2 mg/dL (0.6-1.3); Estimated Creatinine Clearance 31.8 mL/min (>60); Globulin 3.3 gm/dL (2.3-3.5); Glucose 114 mg/dL (74-106); Magnesium 1.6 mg/dL (1.6-2.6); Osmolality,Calculated 276 (275-295); Phosphorous 4.5 mg/dL (2.4-5.1); Potassium 4.2 mMol/L (3.4-5.1); Sodium 137 mMol/L (136-145); Total Protein 7.2 gm/dL (5.7-8.2); eGFR 46 See Note
[2024-12-15] MEDS: atenoloL 25 MG TABLET 50 MG PO (08:37)
[2024-12-15] MEDS: HEPARIN SOD INJ 5000 UNIT/ML VIAL SC ×2 (08:38→21:18)
[2024-12-15] MEDS: levETIRAcetam INJ 100 MG/ML VIAL 5ML 1000 MG IVP ×2 (08:38→21:13)
[2024-12-15] MEDS: PANTOPRAZOLE INJ 40 MG VIAL IVP (08:38)
[2024-12-15] MEDS: DEXAMETHASONE SOD PHOS INJ 10 MG/ML VIAL IVP (11:39)
--- NOTE | 2024-12-15 11:51 | ESPR_ITS ---
<Statement entered by Sherri Zelaya MD - 12/16/24 10:35> TOTAL TIME: 45MINUTES ON DIRECT MEDICAL CARE, MANAGEMENT - COORDINATION AND COUNSELING > 50% OF TOTAL TIME I saw and evaluated the patient. I reviewed the resident?s note and agree with findings and plan as documented in the resident?s note. No further seizures have been identified. Patient was placed on pressure support ventilation and extubated to nasal cannula without incident. Family updated at bedside. 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 Per family patient was in her usual state of health and was enjoying the Super Bowl when she suddenly started to have headaches and seizure-like activity. Patient was given Versed by EMS en route to ED. Patient was intubated to protect her airway. Patient was on anticoagulation for A-fib but developed hemorrhagic stroke conversion in November and no longer takes anticoagulation. Per family patient has never had seizures before. ROS unable to obtain due to patient currently being sedated and on mechanical ventilation. Pertinent labs: Platelets 560, GFR 42, glucose 142, magnesium 1.4, lipase 72, UA positive for RBC, WBC, bacteria. Patient started on Versed drip and fentanyl drip while in ED. Patient given loading dose Keppra and ceftriaxone as well. CT head imaging shows edema in the frontal lobe. 12/14/2024: Patient admitted overnight to ICU after being intubated for airway protection. Patient reportedly had seizure at SNF and was brought to the ED. Upon arrival to the ED she was intubate for airway protection and started on Fentayl and Midazolam GTT. This AM all sedation was discontinued. Patient still minimally responsive and only responing to sternal rub. Patient underwent CT head with being read as focal edema in the Right frontal lobe suspicious for brain neoplasm. Will follow up with MRI and EEG, currently pending. TSH elevated at 59. WIll increase home levothyroxine to 112 mcg ACBR. Patient has known history of CKD followed by Dr. Katlyn Hsu. GFR 57 stage 3A. Patient noted to have minimal output. Will administer Lasix. If urine out does not increase, will consult nephrology. 12/15/2024: Patient seen and examined at bedside. ON patient reported to have a low temp of 96.2 and UO of 700cc. Patient's ABG showed respiratory alkalosis this AM, but patient showed signs of SBT. Patient was extubated late morning with no complications. Pending bedside swallow, and will tube feeds at a slow rate tonight. MRI showed enhancing lesions in R frontal and parietal lobe. D/t findings on MRI, will request hospital records from patient's previous hospitalizations at [facility] and gave a x1 of Decadron to prevent vasogenic edema. Patient was started on home atenolol after patient was tachycardic last night. WBC did increased to 20 from 12. Patient's baseline is A&O x 2, and uses a wheelchair for mobility. Exam Vital Signs Temp Pulse Resp BP Pulse Ox O2 Del Method O2 Flow Rate 96.2 F L 93 18 132/75 H 99 Mechanical Ventilation 3 12/15/24 04:00 12/15/24 11:46 12/15/24 11:46 12/15/24 10:05 12/15/24 11:46 12/15/24 04:00 12/15/24 11:46 FiO2 21 12/15/24 10:05 Narrative Exam General: Elderly female, in no acute distress on NC. Alert and awake. Somewhat somnolent, but able to follow some commands. HEENT: NC/AT, NT, PERRLA, MMM Lungs: CTAB, no wheezing, rhonchi CVS: S1S2, RRR, no murmurs or rubs heard ABD: soft, non-distended, non-tender, presence of PEG tube noted, does not appear infected but is malodorous : G-tube in place, intact, and no signs of infection EXT: radial pulses 2+ BL, DP pulses 2 + BL, Neuro: GCS 12-13. Patient unable to state her name at this time. Left facial droop and left hemiparesis. 3/5 motor strength in RUE/RLE. Objective Labs 12/15/24 04:50 12/15/24 04:50 Labs: Laboratory Results - last 24 hr 12/15/24 12/15/24 03:39 04:50 WBC 20.2 H D RBC 4.34 Hgb 13.0 Hct 39.5 MCV 91 MCH 30.0 MCHC 32.9 RDW Std Deviation 44.0 Plt Count 461 H Neut % (Auto) 81 H Lymph % (Auto) 12 [place] % (Auto) 6 Eos % (Auto) 0 Baso % (Auto) 0 Neut # (Auto) 16.3 H Lymph # (Auto) 2.5 [place] # (Auto) 1.2 H Eos # (Auto) 0.0 Baso # (Auto) 0.1 Immature Gran # (Auto) 0.12 H Absolute Nucleated RBC 0.00 Immature Gran % 1 H Nucleated RBC % 0 Puncture Site Right Radial ABG pH 7.51 H ABG pCO2 33 ABG pO2 102 D ABG HCO3 27 H ABG O2 Saturation 99 H ABG Base Excess 4 H FiO2 21 Sodium 137 Potassium 4.2 Chloride 100 Carbon Dioxide 24.4 Anion Gap 13 BUN 18 Creatinine 1.2 Estim Creat Clear Calc 31.8 L eGFR 46 L BUN/Creatinine Ratio 15 Glucose 114 H Calculated Osmolality 276 Calcium 10.5 Corrected Calcium 10.6 H Phosphorus 4.5 Magnesium 1.6 Total Bilirubin 0.6 AST 40 H ALT 21 Alkaline Phosphatase 76 D Total Protein 7.2 Albumin 3.9 D Globulin 3.3 Albumin/Globulin Ratio 1.2 ABG Interpretation ABG results: 12/13/24 12/14/24 12/15/24 20:39 05:34 03:39 ABG pH 7.53 H 7.42 D 7.51 H ABG pCO2 33 39 33 ABG pO2 468 H 235 H D 102 D ABG HCO3 27 H 26 27 H ABG O2 Saturation 101 H 101 H 99 H ABG Base Excess 5 H 1 4 H Quality Measures Quality Measures none Advance care planning discussed with:: patient Assessment & Plan Assessment Current Active Medications: Generic Name Dose Route Start Last Admin Trade Name Freq PRN Reason Stop Dose Admin Acetaminophen 650 mg 12/13/24 23:57 Acetaminophen Supp 650 Mg Supp [place] 01/12/25 23:56 Q6HR PRN [id number] Atenolol 50 mg 12/14/24 09:00 12/15/24 08:37 Atenolol 25 Mg Tablet PO 01/13/25 08:59 50 mg QAM JOHNY Administration Heparin Sodium (Porcine) 5,000 unit 12/14/24 09:00 12/15/24 08:38 Heparin Sod Inj 5000 Unit/Ml Vial SC 12/28/24 08:59 5,000 unit Q12HR JOHNY Administration Ceftriaxone Sodium/Dextrose 50 mls @ 100 mls/hr 12/14/24 21:00 12/14/24 21:12 Rocephin/D5w 1gm Iv Premix IV 12/21/24 20:59 100 mls/hr HS JOHNY Administration Midazolam HCl 100 mg in 100 mls @ 1 mls/hr 12/14/24 00:47 Versed Pf Inj In Ns Premix IV 12/18/24 19:01 .Q24H PRN PER PROTOCOL Protocol 1 MG/HR Fentanyl Citrate 2,500 mcg in 250 mls @ 2.5 mls/hr 12/14/24 00:47 Sublimaze Inj 2,500 Mcg/250 Ml Bag IV 12/18/24 19:02 .Q24H PRN PER PROTOCOL Protocol 25 MCG/HR Dexmedetomidine/Sodium Chloride 200 mcg in 50 mls @ 3.035 mls/hr 12/15/24 07:05 Precedex Ivpb IV 01/14/25 07:04 [id number] PRN Per PROTOCOL Protocol 0.2 MCG/KG/HR Levetiracetam 1,000 mg 12/14/24 09:00 12/15/24 08:38 Levetiracetam Inj 100 Mg/Ml Vial 5ml IVP 01/13/25 08:59 1,000 mg Q12HR JOHNY Administration Levothyroxine Sodium 112 mcg 12/15/24 06:00 12/15/24 05:50 Levothyroxine Sodium 112 Mcg Tablet NG 01/14/25 05:59 112 mcg ACBR JOHNY Administration Pantoprazole Sodium 40 mg 12/14/24 09:00 12/15/24 08:38 Pantoprazole Inj 40 Mg Vial IVP 01/13/25 08:59 40 mg QDAY JOHNY Administration Plan Patient is a 79-year-old female with past medical history of hypertension, hyperlipidemia, hypothyroidism, paroxysmal A-fib not on anticoagulation, and recent stroke s/p TPA in 10/27 and hemorraghic conversion with left-sided residuals in 11/28 who presented to the ED from SNF due to status epilepticus/seizures and admitted to ICU for further management. Patient is extubated, and safe for downgrade to med/tele. Neurological #Acute Encephalopathy secondary to New Onset Seizure #Status epilepticus #History of Stroke w/ Hemorrhagic conversion (11/2024) Patient presented to the ED after suffering a new onset seizure. Per family, sezure was >5 mins concerning for status epilepticus. Patient was administered Versed (Midazolam ) 4 mg by EMS in the field. Patient was subsequently intubated in the ED and started on Fentanyl and Versed GTT. Sedation has since been discontinued with no seizure activity noted thus far. MRI showed enhancing lesions in R frontal and parietal lobe. D/t findings on MRI, will request hospital records from patient's previous hospitalizations at [facility]. -Neurology consulted, appreciate recommendations -Continue Keppra 1000mg BID -EEG: Pending -F/u with hospitalization records from [facility] to compare imaging -Gave a x1 dose of Decadron, but can continue in the setting of prevention of vasogenic edema if MRI findings is new for cerebral mass Cardiology #Tachcyardia Started patient's home Atenolol 50mg AM #Atrial Fibrillation, paroxysmal - resolved -Patient currently rate and rythm controlled, however noted to go in and out of atrial fibrillation. -No anticoagulation due to history of hemorrhagic conversion. Pulmonary #Acute Respiratory Failure-improved Patient intubated for airway protection. Patient extubated, 12/15/24 and is awake and alert. Gastrointestinal #G-tube placement Continue tube feeds tonight at low rate Patient is able to tolerate a pureed diet during the day and has tube feeds at night -Pending nurse bedside swallow Renal/Genitourinary #CKD stage 3A-improving GFR 57 Patient presented with minimal urinary output, gave x 1 Lasix yesterday Patient had great UO overnight #Lactic acidosis- resolved Endocrine #Hypothyroidism TSH: 59.24, free T4 -Increased home dose of 75mcg to Levothyroxine to 112 mcg [facility] Hemetology #Leuckocytosis Most likely reactive secondary to seizure vs cerebral mass WBC increased to 20 since admission -CTM #Thrombocytosis - resolved Will continue to monitor platelets QAM. Infectious Disease #UTI Urine analysis: Plus protein, 2+ blood, 3+ leukocyte esterase, 2+ bacteriuria -F/U urine culture and blood cultures -Antibiotic regimen: Continue ceftriaxone 1 g every 24 hours Skin - no acute issues, no evidence of skin breakdown Fluids Electrolytes Nutrition: Will start tube feeds tonight Thromboprophylaxis: Heparin 5000 units SC q8hrs Ulcer prophylaxis: Pantoprazole 40 mg QD Spontaneous breathing trial: 12/15/24- successful extubation Bowel regimen: NA Indwelling catheter: Avalos CODE STATUS: Full code Patient's case was discussed with supervising attending physician Dr. Zelaya. Genia Rolon, PGY-2
--- NOTE | 2024-12-15 17:08 | EVENTNT_ITS ---
<Statement entered by Destinee Patel MD - 12/21/24 15:04> I reviewed above note and agree with findings and plans. I have also personally examined the patient with medicine team and went over assessment and plan with medical team including international marketing specialist and resident physician. Documentation for date of: 12/15/24: Signout received from ICU team regarding 79-year-old female with past medical history of ischemic stroke with recent hemorrhagic conversion, status epilepticus, atrial fibrillation not on anticoagulation, hypothyroidism, hypert ension and hyperlipidemia who was brought over to the ED from SNF secondary to status epilepticus requiring Versed drip and intubation for airway protection. Patient apparently had an ischemic stroke at [facility] and was given tenecteplase; moreover, patient had a right MCA thrombus and was transferred to [facility]. Sometime in November, patient had a hemorrhagic conversion of the ischemic stroke and has stopped taking anticoagulation. Overnight patient was weaned off sedation and was successfully extubated in the ICU on 12/15. Neurology is following the patient and MRI brain shows enhancing lesions in the right frontal lobe and right parietal lobe which neurology believes is likely secondary to the large infarct. Patient continues to be on Keppra 500 mg twice daily with no seizure activity in the hospital and EEG is pending. Patient is currently GCS 14 and at her new baseline. Delano Yates, PGY-1
--- NOTE | 2024-12-15 17:15 | PC.SS ---
Update: Patient has been downgraded to Tele.
--- NOTE | 2024-12-15 18:26 | PC.NURSE ---
per pt daughter, pt PEG tube used at alf, at 0900, confirmed with ford Barrett to use PEG tube
[2024-12-15] MEDS: cefTRIAXone/D5w 1gm IV premix 50 ML IV (21:19)
--- NOTE | 2024-12-15 23:11 | PD.VPROG1 ---
Telemedicine visit statement This visit was conducted with the use of interactive audio and video telecommunications system that permits real time communication between the patient and the provider. Patient's verbal consent for virtual visit was obtained on 12/15/24 at 2311. Documentation for date of: 12/15/24 Subjective Subjective Interval history: Patient is in ICU, got extubated this morning but still her mental status not back to baseline continue to be. Densely hemiplegic with spasticity on the left Virtual exam Vital Signs Temp Pulse Resp BP Pulse Ox O2 Del Method O2 Flow Rate 97.1 F 90 18 111/57 L 99 Nasal Cannula 4 12/15/24 20:00 12/15/24 21:01 12/15/24 21:01 12/15/24 20:00 12/15/24 21:01 12/15/24 16:00 12/15/24 21:01 FiO2 21 12/15/24 10:05 Objective Labs 12/15/24 04:50 12/15/24 04:50 Labs: Laboratory Results - last 24 hr 12/15/24 12/15/24 03:39 04:50 WBC 20.2 H D RBC 4.34 Hgb 13.0 Hct 39.5 MCV 91 MCH 30.0 MCHC 32.9 RDW Std Deviation 44.0 Plt Count 461 H Neut % (Auto) 81 H Lymph % (Auto) 12 [place] % (Auto) 6 Eos % (Auto) 0 Baso % (Auto) 0 Neut # (Auto) 16.3 H Lymph # (Auto) 2.5 [place] # (Auto) 1.2 H Eos # (Auto) 0.0 Baso # (Auto) 0.1 Immature Gran # (Auto) 0.12 H Absolute Nucleated RBC 0.00 Immature Gran % 1 H Nucleated RBC % 0 Puncture Site Right Radial ABG pH 7.51 H ABG pCO2 33 ABG pO2 102 D ABG HCO3 27 H ABG O2 Saturation 99 H ABG Base Excess 4 H FiO2 21 Sodium 137 Potassium 4.2 Chloride 100 Carbon Dioxide 24.4 Anion Gap 13 BUN 18 Creatinine 1.2 Estim Creat Clear Calc 31.8 L eGFR 46 L BUN/Creatinine Ratio 15 Glucose 114 H Calculated Osmolality 276 Calcium 10.5 Corrected Calcium 10.6 H Phosphorus 4.5 Magnesium 1.6 Total Bilirubin 0.6 AST 40 H ALT 21 Alkaline Phosphatase 76 D Total Protein 7.2 Albumin 3.9 D Globulin 3.3 Albumin/Globulin Ratio 1.2 ABG Interpretation ABG results: 12/13/24 12/14/24 12/15/24 20:39 05:34 03:39 ABG pH 7.53 H 7.42 D 7.51 H ABG pCO2 33 39 33 ABG pO2 468 H 235 H D 102 D ABG HCO3 27 H 26 27 H ABG O2 Saturation 101 H 101 H 99 H ABG Base Excess 5 H 1 4 H Assessment & Plan Assessment 1) Acute right MCA stroke: Discussed extubated, GCS: 14, back to baseline, continue to be hemiplegic on the left Continue with range of motion exercises on the left upper and lower extremities. MRI brain showed findings consistent with large infarct in the right frontal and parietal area.(Bright signal on DWI indicating restricted diffusion and low signal on the ADC map confirming restricted diffusion) In my opinion it is not suggestive of brain mets (Mets typically shows less diffusion restriction that appears hypointense on DWI with a relatively higher ADC value). Follow-up with previous imaging data on CD from [place] Will hold off on antiplatelet/anticoagulant therapy because of the recent intracerebral hemorrhage event. (2) Status epilepticus: resolved No seizures reported after admission, continue with Keppra. (3) Acute UTI: Continue with antibiotics and follow-up with the culture and sensitive. Preliminary culture grew gram-negative lucian
[2024-12-16] VITALS (32 sets, daily range): BP systolic 124–167; BP diastolic 55–119; PULSE 62–152; RESP 12–20; TEMP 36.6–37; O2SAT 92–98
[2024-12-16 05:21] LABS: Basophils % (Auto) 0 % (0-2.5); Eosinophils % (Auto) 0 % (0-10); Hematocrit 35.4 % (36.0-46.0); Hemoglobin 11.7 g/dL (12.0-16.0); Immature Granulocytes % (Auto) 1 % (0-0); Immature Granulocytes Auto 0.07 Thou/mm3 (0.00-0.00); Lymphocytes # (Auto) 1.3 Thou/mm3 (1.0-4.8); Lymphocytes % (Auto) 11 % (10-50); Mean Corpuscular HGB Conc 33.1 g/dl (31.0-37.0); Mean Corpuscular Hemoglobin 30.3 pg (25.0-35.0); Mean Corpuscular Volume 92 fL (80-100); Monocytes # (Auto) 0.5 Thou/mm3 (0.0-0.8); Monocytes % (Auto) 5 % (0-12); Neutrophils # (Auto) 9.2 Thou/mm3 (1.8-7.7); Neutrophils % (Auto) 83 % (37-80); Nucleated Red Blood Cell % 0 /100 WBC (0); Platelet Count 388 Thou/mm3 (140-440); RDW Standard Deviation 43.9 fL (36.4-46.3); Red Blood Count 3.86 Miln/mm3 (4.00-5.20); White Blood Count 11.1 Thou/mm3 (3.6-11.0)
[2024-12-16] MEDS: LEVOTHYROXINE SODIUM 112 MCG TABLET NG (05:40)
[2024-12-16 05:47] LABS: Alanine Aminotransferase 22 U/L (10-49); Albumin, Serum 3.6 gm/dL (3.4-4.8); Albumin/Globulin Ratio 1.2 (1.2-2.2); Alkaline Phosphatase 74 U/L (46-116); Anion Gap 10 (7-16); Aspartate Amino Transferase 38 U/L (0-34); BUN/Creatinine Ratio 20 Ratio (12-20); Bilirubin,Total 0.4 mg/dL (0.3-1.2); Blood Urea Nitrogen 24 mg/dL (9-23); Calcium 10.2 mg/dL (8.3-10.6); Calcium (Corrected) 10.5 mg/dL (8.5-10.1); Carbon Dioxide 26.2 mMol/L (20.0-31.0); Chloride 103 mMol/L (98-107); Creatinine (Component) 1.2 mg/dL (0.6-1.3); Estimated Creatinine Clearance 31.4 mL/min (>60); Glucose 97 mg/dL (74-106); Magnesium 1.5 mg/dL (1.6-2.6); Osmolality,Calculated 281 (275-295); Phosphorous 4.7 mg/dL (2.4-5.1); Sodium 139 mMol/L (136-145); Total Protein 6.6 gm/dL (5.7-8.2); eGFR 46 See Note
[2024-12-16] MEDS: Magnesium Sulfate 4 GM Ivpb 4 GM/50 ML BAG IV (09:13)
[2024-12-16] MEDS: HEPARIN SOD INJ 5000 UNIT/ML VIAL SC ×2 (09:14→21:20)
[2024-12-16] MEDS: PANTOPRAZOLE INJ 40 MG VIAL IVP (09:14)
[2024-12-16] MEDS: atenoloL 25 MG TABLET 50 MG PO (09:14)
[2024-12-16] MEDS: levETIRAcetam INJ 100 MG/ML VIAL 5ML 1000 MG IVP ×2 (09:15→21:20)
[2024-12-16] MEDS: PIPER/TAZO 3.375 GM 3.375 GM/50 ML BAG IV ×3 (09:17→21:20)
--- NOTE | 2024-12-16 11:51 | PCS.ST ---
Swallow Evaluation completed. See report for details. Dysphagia 1/Regular liquids. ST will follow
--- NOTE | 2024-12-16 13:50 | ESPR_ITS ---
<Statement entered by Jay Lozada MD - 12/17/24 14:56> I discussed with and supervised the internal communications writer physician involved in the care of this patient. Patient assessment and plan was discussed with entire medicine team, including my attending. I agree with the assessment and plan as documented by internal communications writer doctor. Patient care was discussed with my attending physician Dr. Sandrine Lozada, PGY-2 Documentation for date of: 12/16/24 Subjective Subjective Interval history: 12/16/2024: No acute overnight events reported. Patient seen and examined in hospital bed, awake; slightly somnolent but following some commands. Patient's family bedside was updated regarding patient's status. Pending neurology recommendations regarding patient's EEG which was taken and is pending read. Continue to treat patient with IV antibiotics; however, changed to IV Zosyn as cultures came back positive for Citrobacter farmerii resistant to ceftriaxone. Will continue to monitor for any acute changes. Exam Vital Signs Temp Pulse Resp BP Pulse Ox O2 Del Method O2 Flow Rate 98.1 F 74 16 160/68 H 97 Room Air 4 12/16/24 08:00 12/16/24 11:00 12/16/24 11:00 12/16/24 11:00 12/16/24 11:00 12/16/24 00:00 12/15/24 21:01 FiO2 21 12/15/24 10:05 Narrative Exam General: Elderly female, in no acute distress on NC. Alert and awake. Able to follow some commands. HEENT: NC/AT, NT, PERRLA, MMM Lungs: CTAB, no wheezing, rhonchi CVS: S1S2, RRR, no murmurs or rubs heard ABD: soft, non-distended, non-tender, presence of PEG tube noted : G-tube in place, intact, and no signs of erythema or exudate EXT: radial pulses 2+ BL, DP pulses 2 + BL, Neuro: GCS 12. Patient unable to state her name at this time. Left facial droop and left hemiparesis. 3/5 motor strength in RUE/RLE. Objective Labs 12/17/24 03:55 12/17/24 03:55 Labs: Laboratory Results - last 24 hr 12/16/24 04:56 WBC 11.1 H D RBC 3.86 L Hgb 11.7 L Hct 35.4 L MCV 92 MCH 30.3 MCHC 33.1 RDW Std Deviation 43.9 Plt Count 388 D Neut % (Auto) 83 H Lymph % (Auto) 11 [place] % (Auto) 5 Eos % (Auto) 0 Baso % (Auto) 0 Neut # (Auto) 9.2 H Lymph # (Auto) 1.3 [place] # (Auto) 0.5 Eos # (Auto) 0.0 Baso # (Auto) 0.0 Immature Gran # (Auto) 0.07 H Absolute Nucleated RBC 0.00 Immature Gran % 1 H Nucleated RBC % 0 Sodium 139 Potassium 4.0 Chloride 103 Carbon Dioxide 26.2 Anion Gap 10 BUN 24 H Creatinine 1.2 Estim Creat Clear Calc 31.4 L eGFR 46 L BUN/Creatinine Ratio 20 Glucose 97 Calculated Osmolality 281 Calcium 10.2 Corrected Calcium 10.5 H Phosphorus 4.7 Magnesium 1.5 L Total Bilirubin 0.4 AST 38 H ALT 22 Alkaline Phosphatase 74 Total Protein 6.6 Albumin 3.6 Globulin 3.0 Albumin/Globulin Ratio 1.2 ABG Interpretation ABG results: 12/13/24 12/14/24 12/15/24 20:39 05:34 03:39 ABG pH 7.53 H 7.42 D 7.51 H ABG pCO2 33 39 33 ABG pO2 468 H 235 H D 102 D ABG HCO3 27 H 26 27 H ABG O2 Saturation 101 H 101 H 99 H ABG Base Excess 5 H 1 4 H Quality Measures Quality Measures none Advance care planning discussed with:: child Assessment & Plan Assessment Current Active Medications: Generic Name Dose Route Start Last Admin Trade Name Rosaura PRN Reason Stop Dose Admin Acetaminophen 650 mg 12/13/24 23:57 Acetaminophen Supp 650 Mg Supp [place] 01/12/25 23:56 Q6HR PRN [id number] Atenolol 50 mg 12/14/24 09:00 12/16/24 09:14 Atenolol 25 Mg Tablet PO 01/13/25 08:59 50 mg QAM JOHNY Administration Heparin Sodium (Porcine) 5,000 unit 12/14/24 09:00 12/16/24 09:14 Heparin Sod Inj 5000 Unit/Ml Vial SC 12/28/24 08:59 5,000 unit Q12HR JOHNY Administration Midazolam HCl 100 mg in 100 mls @ 1 mls/hr 12/14/24 00:47 Versed Pf Inj In Ns Premix IV 12/18/24 19:01 .Q24H PRN PER PROTOCOL Protocol 1 MG/HR Fentanyl Citrate 2,500 mcg in 250 mls @ 2.5 mls/hr 12/14/24 00:47 Sublimaze Inj 2,500 Mcg/250 Ml Bag IV 12/18/24 19:02 .Q24H PRN PER PROTOCOL Protocol 25 MCG/HR Dexmedetomidine/Sodium Chloride 200 mcg in 50 mls @ 3.035 mls/hr 12/15/24 07:05 Precedex Ivpb IV 01/14/25 07:04 .[id number] PRN Per PROTOCOL Protocol 0.2 MCG/KG/HR Piperacillin/Tazobactam/Dextrose 3.375 gm in 50 mls @ 12.5 mls/hr 12/16/24 14:00 Zosyn IV 12/23/24 13:59 Q8HR JOHNY Levetiracetam 1,000 mg 12/14/24 09:00 12/16/24 09:15 Levetiracetam Inj 100 Mg/Ml Vial 5ml IVP 01/13/25 08:59 1,000 mg Q12HR JOHNY Administration Levothyroxine Sodium 112 mcg 12/15/24 06:00 12/16/24 05:40 Levothyroxine Sodium 112 Mcg Tablet NG 01/14/25 05:59 112 mcg ACBR JOHNY Administration Pantoprazole Sodium 40 mg 12/14/24 09:00 12/16/24 09:14 Pantoprazole Inj 40 Mg Vial IVP 01/13/25 08:59 40 mg QDAY JOHNY Administration Plan 79-year-old female with past medical history of hypertension, hyperlipidemia, hypothyroidism, paroxysmal A-fib not on anticoagulation, and recent stroke s/p TPA in 10/27 and hemorraghic conversion with left-sided residuals in 11/28 who presented to the ED from SNF due to status epilepticus/seizures and admitted to ICU for further management; downgraded upon successful weaning off sedation and back to baseline. #Acute Encephalopathy secondary to New Onset Seizure #Status epilepticus #History of Stroke w/ Hemorrhagic conversion (11/2024) #Suspicion for Cerebral Mass, unlikely #Acute Respiratory Failure, resolved - extubated Patient intubated for airway protection. Patient extubated, 12/15/24 and is awake and alert. Patient presented to the ED after suffering a new onset seizure. Per family, sezure was >5 mins concerning for status epilepticus. Patient was administered Versed 4 mg by EMS in the field. Patient was subsequently intubated in the ED and started on Fentanyl and Versed gtt. Sedation has since been discontinued with no seizure activity noted thus far. MRI showed enhancing lesions in R frontal and parietal lobe. D/t findings on MRI, will request hospital records from patient's previous hospitalizations at [facility]. Given x1 dose of Decadron in ICU 2/2 MRI findings being suspicious for mass Neurology consulted, appreciate recommendations Plan: Per neurology, MRI findings are more likely to be 2/2 to ischemic stroke vs. true cerebral mass/metastasis based off characteristic noted in MRI Continue Keppra 1000mg BID EEG pending read #Atrial Fibrillation, paroxysmal Patient has history of PAF No anticoagulation due to recent history of hemorrhagic conversion. Patient currently rate and rhythm controlled, however noted to go in and out of atrial fibrillation. Plan: Continue home Atenolol 50mg AM #UTI #Leuckocytosis Urine analysis: Plus protein, 2+ blood, 3+ leukocyte esterase, 2+ bacteriuria Blood cultures (-) over 48 hours Urine cultures (+) for Citrobacter farmerii Plan: Discontinued Ceftriaxone 2/2 to sensitivities Started on Zosyn 3.375g q6h #G-tube dependent Continue tube feeds tonight at low rate Patient is able to tolerate a pureed diet during the day and has tube feeds at night Plan: Cardiac, Dysphagia I (pureed) #CKD stage 3A #Electrolyte abnormalities Patient kidney function stable Cr stable Plan: Repleted lytes Continue to monitor #Hypothyroidism TSH: 59.24, free T4 1.02 Plan: Continue Levothyroxine to 112 mcg ACBR Follow-up outpatient with thyroid labs; likely 2/2 to acutely ill status affecting TSH levels Hospital Managment: Lines: PIV Diet: Cardiac, dysphagia I (pur?ed) Bowel: Senna GI prophylaxis: Not needed DVT prophylaxis: Heparin subcu Dispo: Pending neurology recommendations, EEG pending read Code: Full Patient seen and examined with attending Dr. Deluca and senior resident Dr. Neville Yates, PGY-1 Attending Provider Attestation/Addendum I attest that I was physically present for the evaluation, physical examination, lab and imaging review of the patient with the residents. I discussed the case with the residents and agree with the findings and plans of care as documented above. Patient is a ICU downgrade from 12/15/2024. She is a 79 years old female with past medical history of hypertension, hyperlipidemia, hypothyroidism, paroxysmal A-fib not on anticoagulation, CVA status post tPA who presented with seizure- like episode/status epilepticus. She was initially intubated for airway protection and admitted to ICU. Patient was successfully extubated on 12/15/2024 and transferred to hospitalist team for further care. At bedside today, patient is alert and awake, able to a holding antiplatelets and anticoagulation nswer some of the questions and follow commands partially. Continues to have left- sided weakness. Patient has not have any new seizure episodes since admission. Neurology on board, appreciate recommendations. Due to her recent intracerebral hemorrhage event. Continues to be on Keppra, awaiting EEG results. Changed her antibiotics from ceftriaxone to Zosyn based on sensitivity results. Fabio Deluca MD
--- NOTE | 2024-12-16 14:39 | PC.SS ---
Update: Plan is to address patient's UTI with antibiotic regimen. Patient has been downgraded from ICU.
[2024-12-16] MEDS: ACETAMINOPHEN SOL 325 MG/10 ML UDC 650 MG NG (15:49)
--- NOTE | 2024-12-16 22:41 | ESPR_ITS ---
Documentation for date of: 12/16/24 Subjective Subjective Interval history: Patient was seen in ICU today at the bedside. Continue to have dense left hemiplegia with spasticity and contracture. She does have purposeful movements involving the right upper and lower extremities and on commands. Has not had any seizures since admission. Exam - Neurology Vital Signs Temp Pulse Resp BP Pulse Ox O2 Del Method O2 Flow Rate 98.2 F 69 15 143/71 H 96 Room Air 4 12/16/24 19:01 12/16/24 21:00 12/16/24 21:00 12/16/24 21:00 12/16/24 21:00 12/16/24 00:00 12/15/24 21:01 FiO2 21 12/15/24 10:05 Narrative Exam GENERAL APPEARANCE: Well hydrated, well-nourished , in no acute distress HEENT: Normocephalic, atraumatic, extraocular movements intact. Pupils: Equal reacting to light NECK: Supple, no JVD or bruits. CARDIOVASULAR: Heart: S1, S2 heard, regular without S3-S4 or murmur no rubs or gallops. LUNGS/CHEST: Clear to auscultation bilaterally. No rails, rhonchi, or wheezing. Normal inspection. ABDOMEN: Soft, nontender, with normal bowel sounds. No pulsatile masses. No rebound, rigidity, or guarding. Normal inspection and palpation. EXTREMITIES: Normal inspection and palpation. No edema, clubbing or cyanosis. SKIN: Warm and dry without rashes. Normal inspection. MUSCULOSKELETAL: No cervical, thoracic, lumbar or midline bony tenderness. Normal inspection. NEURO: Patient is awake, alert, continue to have dense left hemiplegia with spasticity and contracture noted. Rest of the exam: Limited. PSYCHIATRIC: Limited Objective Labs 12/17/24 03:55 12/17/24 03:55 Labs: Laboratory Results - last 24 hr 12/16/24 04:56 WBC 11.1 H D RBC 3.86 L Hgb 11.7 L Hct 35.4 L MCV 92 MCH 30.3 MCHC 33.1 RDW Std Deviation 43.9 Plt Count 388 D Neut % (Auto) 83 H Lymph % (Auto) 11 [place] % (Auto) 5 Eos % (Auto) 0 Baso % (Auto) 0 Neut # (Auto) 9.2 H Lymph # (Auto) 1.3 [place] # (Auto) 0.5 Eos # (Auto) 0.0 Baso # (Auto) 0.0 Immature Gran # (Auto) 0.07 H Absolute Nucleated RBC 0.00 Immature Gran % 1 H Nucleated RBC % 0 Sodium 139 Potassium 4.0 Chloride 103 Carbon Dioxide 26.2 Anion Gap 10 BUN 24 H Creatinine 1.2 Estim Creat Clear Calc 31.4 L eGFR 46 L BUN/Creatinine Ratio 20 Glucose 97 Calculated Osmolality 281 Calcium 10.2 Corrected Calcium 10.5 H Phosphorus 4.7 Magnesium 1.5 L Total Bilirubin 0.4 AST 38 H ALT 22 Alkaline Phosphatase 74 Total Protein 6.6 Albumin 3.6 Globulin 3.0 Albumin/Globulin Ratio 1.2 ABG Interpretation ABG results: 12/13/24 12/14/24 12/15/24 20:39 05:34 03:39 ABG pH 7.53 H 7.42 D 7.51 H ABG pCO2 33 39 33 ABG pO2 468 H 235 H D 102 D ABG HCO3 27 H 26 27 H ABG O2 Saturation 101 H 101 H 99 H ABG Base Excess 5 H 1 4 H Assessment & Plan Assessment and plan (1) Acute right MCA stroke: Status: Acute Assessment and plan: Continue with range of motion exercises on the left upper and lower extremities. MRI brain showed findings consistent with large infarct in the right frontal and parietal area.(Bright signal on DWI indicating restricted diffusion and low signal on the ADC map confirming restricted diffusion) In my opinion it is not suggestive of brain mets (Mets ypically shows less diffusion restriction that appears hypointense on DWI with a relatively higher ADC value). Will go ahead and get the imaging studies from October and November from [facility] for comparison. Will hold off on antiplatelet/anticoagulant therapy because of the recent intracerebral hemorrhage event. (2) Status epilepticus: Status: Resolved Assessment and plan: No seizures reported after admission, continue with Keppra. EEG did not show any epileptiform discharges (3) Acute UTI: Status: Acute Assessment and plan: Continue with antibiotics, noted switched from ceftriaxone to Zosyn
[2024-12-16] MEDS: METOPROLOL TARTRATE INJ 1 MG/ML AMP 5 ML 5 MG IVP (23:52)
[2024-12-17] VITALS (45 sets, daily range): BP systolic 103–169; BP diastolic 68–118; PULSE 58–165; RESP 11–32; TEMP 36.4–36.8; O2SAT 94–99; BMI 24.6; BMI 12.0
[2024-12-17] MEDS: METOPROLOL TARTRATE INJ 1 MG/ML AMP 5 ML 5 MG IVP
[2024-12-17] MEDS: AMIODARONE 360 MG IVPB 360 MG/200 ML BAG 33.333 MG IV (00:05)
--- NOTE | 2024-12-17 00:06 | EKG_ITS ---
[facility] Test Date: 2024-12-17 Pat Name: ANDRE LEVIN [facility] Cover Inspector: [facility] : 1945 Requested By: Shahrzad Diallo Order Number: [id number] Reading MD: Shahrzad Diallo Measurements Intervals [place] Rate: 126 P: CO: QRS: 47 QRSD: 94 T: -36 QT: 285 QTc: 414 Interpretive Statements ATRIAL FIBRILLATION WITH RAPID VENTRICULAR RESPONSE NONSPECIFIC ST & T-WAVE ABNORMALITY Compared to ECG 12/13/2024 19:06:09 T-wave abnormality now present Sinus rhythm no longer present /store/S0/[id number]/[id number].pdf
--- NOTE | 2024-12-17 00:22 | XR_ITS ---
Examination: Duplex scan of the upper extremity, unilateral left complete Date and time of exam: December 17, 2024 0858 hours INDICATIONS: Left arm swelling this week Technique: Duplex scan of the extremity veins using B-mode/grayscale imaging and Doppler spectral analysis and color flow Attention is directed to internal echogenicity, compression and augmentation involving these veins, color flow assessment, spectral analysis Findings: Major deep venous structures in the extremity demonstrate normal course and caliber. There is no evidence of deep vein thrombosis. Normal color flow and spectral analysis Impression: Negative for DVT.. Positive for acute thrombus in the superficial cephalic vein
[2024-12-17] MEDS: AMIODARONE 150 MG IVPB 150 MG/100 ML BAG 600 MG IV (00:30)
[2024-12-17] MEDS: ACETAMINOPHEN SOL 325 MG/10 ML UDC 650 MG NG ×2 (03:13→15:47)
[2024-12-17 05:34] LABS: Basophils # (Auto) 0.1 Thou/mm3 (0.0-0.2); Basophils % (Auto) 1 % (0-2.5); Eosinophils # (Auto) 0.1 Thou/mm3 (0.0-0.5); Eosinophils % (Auto) 1 % (0-10); Hematocrit 36.9 % (36.0-46.0); Hemoglobin 12.3 g/dL (12.0-16.0); Immature Granulocytes % (Auto) 0 % (0-0); Immature Granulocytes Auto 0.02 Thou/mm3 (0.00-0.00); Lymphocytes # (Auto) 1.7 Thou/mm3 (1.0-4.8); Lymphocytes % (Auto) 23 % (10-50); Mean Corpuscular HGB Conc 33.3 g/dl (31.0-37.0); Mean Corpuscular Volume 90 fL (80-100); Monocytes # (Auto) 0.8 Thou/mm3 (0.0-0.8); Monocytes % (Auto) 10 % (0-12); Neutrophils # (Auto) 4.6 Thou/mm3 (1.8-7.7); Neutrophils % (Auto) 63 % (37-80); Nucleated Red Blood Cell % 0 /100 WBC (0); Platelet Count 412 Thou/mm3 (140-440); RDW Standard Deviation 43.1 fL (36.4-46.3); White Blood Count 7.3 Thou/mm3 (3.6-11.0)
[2024-12-17] MEDS: PIPER/TAZO 3.375 GM 3.375 GM/50 ML BAG IV (06:22)
[2024-12-17] MEDS: LEVOTHYROXINE SODIUM 112 MCG TABLET NG (06:22)
[2024-12-17 06:24] LABS: Alanine Aminotransferase 42 U/L (10-49); Albumin, Serum 3.5 gm/dL (3.4-4.8); Albumin/Globulin Ratio 1.1 (1.2-2.2); Alkaline Phosphatase 115 U/L (46-116); Anion Gap 12 (7-16); Aspartate Amino Transferase 52 U/L (0-34); BUN/Creatinine Ratio 18 Ratio (12-20); Bilirubin,Total 0.3 mg/dL (0.3-1.2); Blood Urea Nitrogen 24 mg/dL (9-23); Calcium (Corrected) 10.4 mg/dL (8.5-10.1); Carbon Dioxide 25.4 mMol/L (20.0-31.0); Chloride 103 mMol/L (98-107); Creatinine (Component) 1.3 mg/dL (0.6-1.3); Estimated Creatinine Clearance 29.3 mL/min (>60); Globulin 3.1 gm/dL (2.3-3.5); Glucose 125 mg/dL (74-106); Magnesium 1.8 mg/dL (1.6-2.6); Osmolality,Calculated 284 (275-295); Potassium 3.1 mMol/L (3.4-5.1); Sodium 140 mMol/L (136-145); Total Protein 6.6 gm/dL (5.7-8.2); eGFR 42 See Note
[2024-12-17] MEDS: AMIODARONE 360 MG IVPB 360 MG/200 ML BAG 16.667 MG IV (07:41)
--- NOTE | 2024-12-17 08:03 | EKG_ITS ---
[facility] Test Date: 2024-12-17 Pat Name: ANDRE LEVIN [facility] Publicity Manager: [facility] : 1945 Requested By: Delano Yates Order Number: [id number] Reading MD: Delano Yates Measurements Intervals [place] Rate: 70 P: 97 MD: 170 QRS: 50 QRSD: 88 T: 43 QT: 408 QTc: 442 Interpretive Statements SINUS RHYTHM Compared to ECG 12/17/2024 00:18:00 Atrial fibrillation no longer present T-wave abnormality no longer present /store/S0/[id number]/[id number]
--- NOTE | 2024-12-17 08:03 | PC.SS ---
SNF referral submitted on [facility]. Awaiting responses. Patient does not want to return to ST.
[2024-12-17] MEDS: HEPARIN SOD INJ 5000 UNIT/ML VIAL SC ×2 (08:36→20:27)
[2024-12-17] MEDS: POTASSIUM CHLORIDE 10% 20 MEQ/15 ML UDC 40 MEQ PO (08:37)
[2024-12-17] MEDS: levETIRAcetam INJ 100 MG/ML VIAL 5ML 1000 MG IVP ×2 (08:37→20:27)
[2024-12-17] MEDS: NIFEdipine XL 30 MG TABCR 60 MG PO (08:37)
[2024-12-17] MEDS: SENNOSIDES SYRUP 8.8 MG/5 ML UDC NG (08:37)
--- NOTE | 2024-12-17 10:33 | XR_ITS ---
Examination: CT brain head without contrast. 2-D sagittal coronal reconstructions Date and time of exam:December 17, 2024 at 1502 hours INDICATIONS: Focal edema in the right frontal lobe on CT brain scan December 13, 2024, enhancing lesions frontal lobe and mid parietal lobe, 31 mm, 19 mm on brain MRI December 14, 2024 CTDI: vol (mGy):41.8 DLP: (mGycm):819 Technique: Multiple CT axial sections of the brain have been obtained, 5 mm slice thickness. Contrast has not been administered. 2-D sagittal, coronal reconstructions have been obtained Low dose protocols were performed. One or more of the following dose reduction techniques were used; automated exposure control, adjustment of the mA and/or KV according to patient size, use of iterative reconstruction technique. Findings: No change in focal areas of edema right frontal lobe right parietal lobe compared with December 13, 2024 Basal cisterns are not remarkable. Fourth ventricle is midline. Cranial vault intact. Small areas of hyperdensity adjacent to the right lateral ventricle and in the right parietal lobe lesion as well as periphery of the right frontal lobe lesion are stable Impression: Stable focal areas of edema in the right frontal lobe and right parietal lobe compared with December 13, 2024 Stable areas of possible small hemorrhage in both locations
[2024-12-17] MEDS: CIPROFLOXACIN HCL 250 MG TABLET 500 MG PO (12:05)
[2024-12-17] MEDS: METOPROLOL TARTRATE 25 MG TABLET 50 MG PO ×2 (12:05→20:26)
--- NOTE | 2024-12-17 13:07 | PC.SS ---
PASSR completed. Patient meets Level I criteria. No follow up required.
--- NOTE | 2024-12-17 14:16 | ESPR_ITS ---
<Statement entered by Jya Lozada MD - 12/17/24 18:23> Overnight patient was started on amiodarone ggt after not responding to metoprolol tartrate. This morning patient was sinus and amiodarone ggt was discontinued. I discussed with and supervised the internetworking technician physician involved in the care of this patient. Patient assessment and plan was discussed with entire medicine team, including my attending. I agree with the assessment and plan as documented by internetworking technician doctor. Patient care was discussed with my attending physician Dr. Lele Lozada, PGY-2 Documentation for date of: 12/17/24 Subjective Subjective Interval history: 12/17/2024: Overnight, patient had a elevated heart rate in the 150s; night team ordered EKG which initially read A-fib. Patient was given 3 x 5 mg metoprolol tartrate which did not improve heart rate as a result patient was started on amiodarone drip. This morning patient seen and examined in hospital bed able to eat and upon inspecting vitals has normal sinus rhythm but with elevated blood pressure 155/110. Additional EKG ordered which is now normal sinus rhythm. Cardiology consulted regarding whether or not the patient requires amiodarone. Amiodarone drip was discontinued and the patient was started on metoprolol tartrate 50 mg p.o. twice daily along with nifedipine 60 mg for elevated blood pressure. Patient does have an acute superficial cephalic vein thrombus; neurology recommends repeating CT head without contrast to ascertain for anticoagulation need. Will continue to monitor the patient for any acute changes. Exam Vital Signs Temp Pulse Resp BP Pulse Ox O2 Del Method O2 Flow Rate 98.2 F 71 19 144/92 H 98 Room Air 4 12/16/24 19:01 12/17/24 12:05 12/17/24 09:01 12/17/24 12:05 12/17/24 09:01 12/16/24 00:00 12/15/24 21:01 FiO2 21 12/15/24 10:05 Narrative Exam General: Elderly female, in no acute distress on NC. Alert and awake. Able to follow some commands. HEENT: NC/AT, NT, PERRLA, MMM Lungs: CTAB, no wheezing, rhonchi CVS: S1S2, RRR, no murmurs or rubs heard ABD: soft, non-distended, non-tender, presence of PEG tube noted : G-tube in place, intact, and no signs of erythema or exudate EXT: radial pulses 2+ BL, DP pulses 2 + BL, Neuro: GCS 12. Patient unable to state her name at this time. Left facial droop and left hemiparesis. 3/5 motor strength in RUE/RLE. Objective Labs 12/19/24 08:42 12/19/24 08:42 Labs: Laboratory Results - last 24 hr 12/17/24 03:55 WBC 7.3 RBC 4.10 Hgb 12.3 Hct 36.9 MCV 90 MCH 30.0 MCHC 33.3 RDW Std Deviation 43.1 Plt Count 412 Neut % (Auto) 63 Lymph % (Auto) 23 [place] % (Auto) 10 Eos % (Auto) 1 Baso % (Auto) 1 Neut # (Auto) 4.6 Lymph # (Auto) 1.7 [place] # (Auto) 0.8 Eos # (Auto) 0.1 Baso # (Auto) 0.1 Immature Gran # (Auto) 0.02 H Absolute Nucleated RBC 0.00 Immature Gran % 0 Nucleated RBC % 0 Sodium 140 Potassium 3.1 L D Chloride 103 Carbon Dioxide 25.4 Anion Gap 12 BUN 24 H Creatinine 1.3 Estim Creat Clear Calc 29.3 L eGFR 42 L BUN/Creatinine Ratio 18 Glucose 125 H Calculated Osmolality 284 Calcium 10.0 Corrected Calcium 10.4 H Phosphorus 3.0 Magnesium 1.8 Total Bilirubin 0.3 AST 52 H ALT 42 Alkaline Phosphatase 115 D Total Protein 6.6 Albumin 3.5 Globulin 3.1 Albumin/Globulin Ratio 1.1 L ABG Interpretation ABG results: 12/13/24 12/14/24 12/15/24 20:39 05:34 03:39 ABG pH 7.53 H 7.42 D 7.51 H ABG pCO2 33 39 33 ABG pO2 468 H 235 H D 102 D ABG HCO3 27 H 26 27 H ABG O2 Saturation 101 H 101 H 99 H ABG Base Excess 5 H 1 4 H Quality Measures Quality Measures none Advance care planning discussed with:: patient and child Assessment & Plan Assessment Current Active Medications: Generic Name Dose Route Start Last Admin Trade Name Freq PRN Reason Stop Dose Admin Acetaminophen 650 mg 12/16/24 15:40 12/17/24 03:13 Acetaminophen Amanda 325 Mg/10 Ml Udc NG 01/15/25 15:39 650 mg Q6HR PRN Administration Fever >100.4 and Pain 1-3 Acetaminophen 650 mg 12/16/24 15:42 Acetaminophen Supp 650 Mg Supp IA 01/12/25 23:56 Q6HR PRN FEVER>101.5 Ciprofloxacin 500 mg 12/17/24 10:30 12/17/24 12:05 Ciprofloxacin Hcl 250 Mg Tablet PO 12/24/24 10:29 500 mg QDAY JOHNY Administration Protocol Heparin Sodium (Porcine) 5,000 unit 12/14/24 09:00 12/17/24 08:36 Heparin Sod Inj 5000 Unit/Ml Vial SC 12/28/24 08:59 5,000 unit Q12HR JOHNY Administration Levetiracetam 1,000 mg 12/14/24 09:00 12/17/24 08:37 Levetiracetam Inj 100 Mg/Ml Vial 5ml IVP 01/13/25 08:59 1,000 mg Q12HR JOHNY Administration Levothyroxine Sodium 112 mcg 12/15/24 06:00 12/17/24 06:22 Levothyroxine Sodium 112 Mcg Tablet NG 01/14/25 05:59 112 mcg ACBR JOHNY Administration Metoprolol Tartrate 50 mg 12/17/24 10:20 12/17/24 12:05 Metoprolol Tartrate 25 Mg Tablet PO 01/16/25 10:19 50 mg BID JOHNY Administration Nifedipine 60 mg 12/17/24 09:00 12/17/24 08:37 Nifedipine Xl 30 Mg Tabcr PO 01/16/25 08:59 60 mg QDAY JOHNY Administration Sennosides 8.8 mg 12/17/24 09:00 12/17/24 08:37 Sennosides Syrup 8.8 Mg/5 Ml Udc NG 01/16/25 08:59 8.8 mg QDAY JOHNY Administration Protocol Plan 79-year-old female with past medical history of hypertension, hyperlipidemia, hypothyroidism, paroxysmal A-fib not on anticoagulation, and recent stroke s/p TPA in 10/27 and hemorraghic conversion with left-sided residuals in 11/28 who presented to the ED from SNF due to status epilepticus/seizures and admitted to ICU for further management; downgraded upon successful weaning off sedation and back to baseline. #Acute Encephalopathy secondary to New Onset Seizure #Status epilepticus #History of Stroke w/ Hemorrhagic conversion (11/2024) #Suspicion for Cerebral Mass, unlikely #Acute Respiratory Failure, resolved - extubated Patient intubated for airway protection. Patient extubated, 12/15/24 and is awake and alert. Patient presented to the ED after suffering a new onset seizure. Per family, sezure was >5 mins concerning for status epilepticus. Patient was administered Versed 4 mg by EMS in the field. Patient was subsequently intubated in the ED and started on Fentanyl and Versed gtt. Sedation has since been discontinued with no seizure activity noted thus far. MRI showed enhancing lesions in R frontal and parietal lobe. D/t findings on MRI, will request hospital records from patient's previous hospitalizations at [facility]. Given x1 dose of Decadron in ICU 2/2 MRI findings being suspicious for mass Neurology consulted, appreciate recommendations EEG shows diffuse slowing synonymous with metabolic/degenerative/vascular encephalopathy Plan: Per neurology, MRI findings are more likely to be 2/2 to ischemic stroke vs. true cerebral mass/metastasis based off characteristic noted in MRI Continue Keppra 1000mg BID #Acute thrombus in the superficial cephalic vein As noted by the venous doppler study Neurology consulted regarding anticoagulation; requesting CT Head w/o contrast Plan: Will consider anticoagulation based on CT Head w/o contrast findings #Atrial Fibrillation, paroxysmal Patient has history of PAF No anticoagulation due to recent history of hemorrhagic conversion. Patient currently rate and rhythm controlled, however noted to go in and out of atrial fibrillation. Plan: Discontinued Atenolol 50mg AM Started patient on home Metorpolol tartrate 50mg bid Cardiology recommended, appreciate recommendations #UTI #Leuckocytosis Urine analysis: Plus protein, 2+ blood, 3+ leukocyte esterase, 2+ bacteriuria Blood cultures (-) over 48 hours Urine cultures (+) for Citrobacter farmerii Plan: Transitioned to oral Cipro 500mg qday from Zosyn #Hypertension On home nifedipine ER 60mg qday Patient hypertensive on 12/17 with elevated diastolic blood pressure Plan: Restarted home medication #G-tube dependent Continue tube feeds tonight at low rate Patient is able to tolerate a pureed diet during the day and has tube feeds at night Plan: Cardiac, Dysphagia I (pureed) #CKD stage 3A #Electrolyte abnormalities Patient kidney function stable Cr stable Plan: Repleted lytes Continue to monitor #Hypothyroidism TSH: 59.24, free T4 1.02 Plan: Continue Levothyroxine to 112 mcg ACBR Follow-up outpatient with thyroid labs; likely 2/2 to acutely ill status affecting TSH levels Hospital Managment: Lines: PIV Diet: Cardiac, dysphagia I (pur?ed) Bowel: Senna GI prophylaxis: Not needed DVT prophylaxis: Heparin subcu Dispo: Pending neurology recommendations, EEG pending read Code: Full Patient seen and examined with attending Dr. Deluca and senior resident Dr. Neville Yates, PGY-1 Attending Provider Attestation/Addendum I attest that I was physically present for the evaluation, physical examination, lab and imaging review of the patient with the residents. I discussed the case with the residents and agree with the findings and plans of care as documented above. Overnight, patient had an episode of elevated heart rate in 150s. EKG was done, which was read as A-fib, patient received metoprolol 5 mg x 3 without improvement in the heart rate and was started on amiodarone drip. At bedside today, patient is more alert and awake. Continues to be able to follow partial commands and answer partially questions. Continues to have left-sided weakness. She is noted to have sinus rhythm on follow-up EKG, we will discontinue the amiodarone drip and start her on metoprolol along with her home nifedipine. We will also obtain cardiology consult. She is also noted to have acute superficial cephalic vein thrombus but with history of stroke with hemorrhagic conversion, we will hold off on anticoagulation as recommended by neurology. Neurology following, suggested that MRI findings are most likely to be secondary to ischemic stroke. Patient continues to be on Keppra. Patient is able to tolerate oral diet, we will switch her Zosyn to oral ciprofloxacin. Fabio Deluca MD
--- NOTE | 2024-12-17 18:45 | ESCONSULT_ITS ---
<Statement entered by Junior Lockhart MD - 12/19/24 17:41> I personally examined the patient evaluated patient has history of paroxysmal atrial fibrillation and stroke unfortunately after the thrombolytic therapy she was transferred to [facility] patient subsequently on anticoagulation discharged home developed hemorrhagic transformation requiring prolonged hospitalization continues to have residual weakness and the CT scan showed possibly small residual amount of bleeding and his anticoagulation was withheld now it is more than 1 month following the initial bleed possibly would want to wait another 60 days or so before resuming anticoagulation her [id number] or is definitely high 5 however because of bleeding risk anticoagulation is withheld. Recommend amiodarone 2 be continued to maintain sinus rhythm in an effort to decrease the chance of atrial fibrillation though it is not 100% it is better than leaving her and having frequent episodes of paroxysmal A-fib hence amiodarone appears to be a good idea to be continued for now. Recommended to follow-up with me 1 to 2 months discussed about prolonged anticoagulation also consideration for Watchman device sometime later on HPI Data of Consult Requesting Physician: Shelly Duran MD Admitting Provider: Richard Jay MD Attending Provider: Shelly Duran MD Primary Care Provider: Cayden Little MD Consult Narrative Reason for consult: Paroxysmal afib History of present illness: 79-year-old female with past medical history of hypertension, hyperlipidemia, hypothyroidism, paroxysmal A-fib not on anticoagulation, and stroke with left- sided residuals in October 2024 that presented to the ED from SNF due to status epilepticus/seizures. Per family patient was in her usual state of health and was enjoying the Super Bowl when she suddenly started to have headaches and seizure-like activity. Patient was given Versed by EMS en route to ED. Patient was intubated to protect her airway. Patient was on anticoagulation for A-fib but developed hemorrhagic stroke conversion in November and no longer takes anticoagulation. Per family patient has never had seizures before. ED COURSE: Pertinent labs: Platelets 560, GFR 42, glucose 142, magnesium 1.4, lipase 72, UA positive for RBC, WBC, bacteria. Patient started on Versed drip and fentanyl drip while in ED. Patient given loading dose Keppra and ceftriaxone as well. CT head imaging shows edema in the frontal lobe. Patient was intubated and upgraded to ICU. Patient was weaned of versed drip, successfully extubated, downgraded to telemetry for further management. Overnight, patient developed an episode of afib, was treated with amiodarone bolus and infusion. Patient was diagnosed with paroxysmal afib in October 2024 after her stroke. Was taking atenolol at home. At time of exam patient was rate controlled, denied chest pain, shortness of breath, lightheadedness. cc:: cc: Shelly Duran MD Review of Systems Review of Systems Systems Reviewed: All systems reviewed, normal except as documented Past Medical History Past Medical History Comments PMH COMMENT: PMH: Allergies to Bactrim, pravastatin, and promethazine with codeine No surgical history Family history of strokes Patient does not smoke, drink alcohol, or use illicit drugs. Exam Vital Signs Temp Pulse Resp BP Pulse Ox O2 Del Method O2 Flow Rate 98.3 F 77 20 155/72 H 96 Room Air 4 12/17/24 16:00 12/17/24 16:00 12/17/24 16:00 12/17/24 16:12/17/24 16:00 12/17/24 16:00 12/15/24 21:01 FiO2 21 12/15/24 10:05 Narrative Exam PE: Gen: Well-developed and well-nourished. Elderly. HEENT: NCAT, PERRLA, EOMI, MMM, anicteric conjunctivae. Left facial droop. CVS: normal S1 and S2. RRR. No M/R/G. Resp: CTA B/L. No rhonchi, rales, crackles or wheezing. Abd: soft, non-tender, non-distended. MSK: Good ROM in RUE & RLE. No rash. 2+ pitting edema LUE. Trace edema LLE. Neuro: CN II-XII grossly intact. Strength 5/5 in RUE & RLE. Alert and oriented x3. Left sided hemiplegia. Psych: appropriate mood and affect. Results Labs 12/17/24 03:55 12/17/24 03:55 Labs: Short CBC 12/17/24 Range/Units 03:55 WBC 7.3 (3.6-11.0) Thou/mm3 Hgb 12.3 (12.0-16.0) g/dL Hct 36.9 (36.0-46.0) % Plt Count 412 (140-440) Thou/mm3 BMP 12/17/24 03:55 Sodium 140 Potassium 3.1 L D Chloride 103 Carbon Dioxide 25.4 BUN 24 H Creatinine 1.3 Glucose 125 H Calcium 10.0 Liver Function 12/17/24 Range/Units 03:55 Total Bilirubin 0.3 (0.3-1.2) mg/dL AST 52 H (0-34) U/L ALT 42 (10-49) U/L Alkaline Phosphatase 115 D (46-116) U/L Albumin 3.5 (3.4-4.8) gm/dL ABG Interpretation ABG results: 12/13/24 12/14/24 12/15/24 20:39 05:34 03:39 ABG pH 7.53 H 7.42 D 7.51 H ABG pCO2 33 39 33 ABG pO2 468 H 235 H D 102 D ABG HCO3 27 H 26 27 H ABG O2 Saturation 101 H 101 H 99 H ABG Base Excess 5 H 1 4 H Quality Measures Quality Measures none Advance care planning discussed with:: patient and child Medications Home Medications and Allergies Home Medications ?Medication ?Instructions ?Recorded ?Confirmed ?Type acetaminophen 325 mg tablet 650 mg PO Q4H PRN pain 08/2812/14/24 History (Tylenol) clonidine HCl 0.1 mg tablet 0.1 mg PO Q12H PRN hyperte nsive 12/14/24 12/14/24 History emergency docusate sodium 100 mg capsule 100 mg PO Q12HR PRN con stipation 12/14/24 12/14/24 History (Colace) ezetimibe 10 mg tablet 10 mg feeding tube .qday hig h 12/14/24 12/14/24 History cholesterol levetiracetam 100 mg/mL oral 500 mg PO Q12H 12/14/24 0 12/14/24 History solution (Keppra) levothyroxine 75 mcg tablet 75 mcg feeding tube QDAY 0 12/14/24 12/14/24 History lidocaine 5 % topical patch 1 patch topical Q24H 12/1412/14/24 History menthol 0.44 %-zinc oxide 20.6 % 1 applic topical Q6HR PRN pain 12/14/24 12/14/24 History topical cream packet (CalaSoothe) metoprolol tartrate 50 mg tablet 50 mg PO BID 12/14/24 12/14/24 History (Lopressor) sennosides 8.6 mg tablet (senna) 8.6 mg PO Q12H PRN co nstipation 12/14/24 12/14/24 History tizanidine 2 mg capsule 2 mg PO HS 12/14/24 12/14/24 History Allergies Allergy/AdvReac Type Severity Reaction Status Date / Time codeine Allergy Verified 12/13/24 19:10 pravastatin Allergy Verified 12/13/24 19:10 promethazine (From Phenergan) Allergy Verified 12/13/24 19:10 sulfamethoxazole (From Allergy Verified 12/13/24 19:10 Bactrim) trimethoprim (From Bactrim) Allergy Verified 12/13/24 19:10 Visit Medications Acetaminophen (Acetaminophen Amanda 325 Mg/10 Ml Udc) 650 mg NG Q6HR PRN PRN Reason: Fever >100.4 and Pain 1-3 Stop: 01/15/25 15:39 Last Admin: 12/17/24 15:47 Dose: 650 mg Acetaminophen (Acetaminophen Supp 650 Mg Supp) 650 mg ID Q6HR PRN PRN Reason: FEVER>101.5 Stop: 01/12/25 23:56 Amiodarone HCl (Amiodarone Hcl 200 Mg Tablet) 200 mg GT BID [facility] Stop: 01/16/25 20:59 Ciprofloxacin (Ciprofloxacin Hcl 250 Mg Tablet) 500 mg PO QDAY [facility]; Protocol Stop: 12/24/24 10:29 Last Admin: 12/17/24 12:05 Dose: 500 mg Heparin Sodium (Porcine) (Heparin Sod Inj 5000 Unit/Ml Vial) 5,000 unit SC Q12HR [facility] Stop: 12/28/24 08:59 Last Admin: 12/17/24 08:36 Dose: 5,000 unit Levetiracetam (Levetiracetam Inj 100 Mg/Ml Vial 5ml) 1,000 mg IVP Q12HR [facility] Stop: 01/13/25 08:59 Last Admin: 12/17/24 08:37 Dose: 1,000 mg Levothyroxine Sodium (Levothyroxine Sodium 112 Mcg Tablet) 112 mcg NG ACBR [facility] Stop: 01/14/25 05:59 Last Admin: 12/17/24 06:22 Dose: 112 mcg Metoprolol Tartrate (Metoprolol Tartrate 25 Mg Tablet) 50 mg PO BID [facility] Stop: 01/16/25 10:19 Last Admin: 12/17/24 12:05 Dose: 50 mg Nifedipine (Nifedipine Xl 30 Mg Tabcr) 60 mg PO QDAY [facility] Stop: 01/16/25 08:59 Last Admin: 12/17/24 08:37 Dose: 60 mg Sennosides (Sennosides Syrup 8.8 Mg/5 Ml Udc) 8.8 mg NG QDAY [facility]; Protocol Stop: 01/16/25 08:59 Last Admin: 12/17/24 08:37 Dose: 8.8 mg Discontinued Medications Acetaminophen (Acetaminophen Supp 650 Mg Supp) 650 mg ID Q6HR PRN PRN Reason: [id number] Stop: 01/12/25 23:56 Hydrocodone Bitart/Acetaminophen (Hydrocodone/Apap 5/325 Tablet) 1 tab PO X1 ONE Stop: 12/16/24 19:49 Last Admin: 12/16/24 21:13 Dose: Not Given Atenolol (Atenolol 25 Mg Tablet) 50 mg PO QAM [facility] Stop: 01/13/25 08:59 Last Admin: 12/16/24 09:14 Dose: 50 mg Dexamethasone Sodium Phosphate (Dexamethasone Sod Phos Inj 10 Mg/Ml Vial) 10 mg IVP X1 ONE; Protocol Stop: 12/15/24 10:04 Last Admin: 12/15/24 11:39 Dose: 10 mg Diazepam (Diazepam Inj 5 Mg/Ml Vial 2 Ml) 10 mg IVP X1 ONE Stop: 12/13/24 20:11 Last Admin: 12/13/24 18:47 Dose: 10 mg Etomidate (Etomidate Inj 2 Mg/Ml Vial 10 Ml) 20 mg IVP X1 ONE Stop: 12/13/24 20:11 Last Admin: 12/13/24 18:47 Dose: 20 mg Furosemide (Furosemide Inj 10 Mg/Ml Vial 2 Ml) 40 mg IVP X1 ONE Stop: 12/14/24 14:49 Last Admin: 12/14/24 14:52 Dose: 40 mg Hydralazine HCl (Hydralazine Inj 20 Mg/Ml Vial) 10 mg IV X1 ONE Stop: 12/13/24 20:42 Last Admin: 12/13/24 21:00 Dose: 10 mg Sodium Chloride (Ns) 1,503 mls @ 1,503 mls/hr 30 ml/kg infuse over 60 min (1503 ml) IV .Q1H ONE Stop: 12/13/24 19:58 Last Infusion: 12/13/24 23:49 Dose: Infused Midazolam HCl (Versed Pf Inj In Ns Premix) 100 mg in 100 mls @ 1 mls/hr IV .Q24H PRN; Protocol PRN Reason: PER PROTOCOL Stop: 12/18/24 19:01 Last Titration: 12/14/24 08:00 Dose: 0 mg/hr, 0 mls/hr Fentanyl Citrate (Sublimaze Inj 2,500 Mcg/250 Ml Bag) 2,500 mcg in 250 mls @ 2.5 mls/hr IV .Q24H PRN; Protocol PRN Reason: PER PROTOCOL Stop: 12/18/24 19:02 Last Titration: 12/14/24 10:00 Dose: 125 mcg/hr, 12.5 mls/hr Magnesium Sulfate (Magnesium Sulfate Ivpb) 2 gm in 50 mls @ 25 mls/hr IV X1 ONE Stop: 12/13/24 22:26 Last Infusion: 12/13/24 23:47 Dose: Infused Ceftriaxone Sodium/Dextrose (Rocephin/D5w 1gm Iv Premix) 50 mls @ 100 mls/hr IV X1 ONE Stop: 12/13/24 22:03 Last Infusion: 12/13/24 23:06 Dose: Infused Ceftriaxone Sodium/Dextrose (Rocephin/D5w 1gm Iv Premix) 50 mls @ 100 mls/hr IV HS JOHNY Stop: 12/21/24 20:59 Last Infusion: 12/15/24 21:50 Dose: Infused Lactated Ringer's (Lactated Ringers) 1,000 mls @ 75 mls/hr IV .[id number] JOHNY Stop: 12/14/24 13:04 Last Admin: 12/14/24 00:43 Dose: 75 mls/hr Midazolam HCl (Versed Pf Inj In Ns Premix) 100 mg in 100 mls @ 1 mls/hr IV .Q24H PRN; Protocol PRN Reason: PER PROTOCOL Stop: 12/18/24 19:01 Fentanyl Citrate (Sublimaze Inj 2,500 Mcg/250 Ml Bag) 2,500 mcg in 250 mls @ 2.5 mls/hr IV .Q24H PRN; Protocol PRN Reason: PER PROTOCOL Stop: 12/18/24 19:02 Magnesium Sulfate (Magnesium Sulfate Ivpb) 4 gm in 50 mls @ 12.5 mls/hr IV X1 ONE Stop: 12/14/24 05:03 Last Admin: 12/14/24 02:17 Dose: 12.5 mls/hr Dexmedetomidine/Sodium Chloride (Precedex Ivpb) 200 mcg in 50 mls @ 3.035 mls/hr IV .[id number] PRN; Protocol PRN Reason: Per PROTOCOL Stop: 01/14/25 07:04 Magnesium Sulfate (Magnesium Sulfate Ivpb) 4 gm in 50 mls @ 12.5 mls/hr IV X1 ONE Stop: 12/16/24 12:56 Last Admin: 12/16/24 09:13 Dose: 12.5 mls/hr Piperacillin/Tazobactam/Dextrose (Zosyn) 3.375 gm in 50 mls @ 12.5 mls/hr IV Q8HR [facility] Stop: 12/23/24 13:59 Last Admin: 12/17/24 06:22 Dose: 12.5 mls/hr Piperacillin/Tazobactam/Dextrose (Zosyn) 3.375 gm in 50 mls @ 100 mls/hr IV X1 ONE Stop: 12/16/24 09:29 Last Admin: 12/16/24 09:17 Dose: 100 mls/hr Amiodarone HCl/Dextrose (Nexterone Ivpb) 150 mg in 100 mls @ 600 mls/hr IV .Q10M ONE Stop: 12/17/24 00:09 Last Admin: 12/17/24 00:30 Dose: 600 mls/hr Amiodarone HCl/Dextrose (Nexterone Ivpb) 360 mg in 200 mls @ 33.333 mls/hr IV .Q6H ONE Stop: 12/17/24 06:59 Last Admin: 12/17/24 00:05 Dose: 33.333 mls/hr Amiodarone HCl/Dextrose (Nexterone Ivpb) 360 mg in 200 mls @ 16.667 mls/hr IV .Q12H [facility] Stop: 12/18/24 06:59 Last Admin: 12/17/24 07:41 Dose: 16.667 mls/hr Influenza Virus Vaccine Quadrival (Influenza Virus Quadrivalent 0.5 Ml Syringe) 0.5 ml IMi .ONCE ONE Stop: 12/14/24 09:12 Last Admin: 12/14/24 09:38 Dose: Not Given Labetalol HCl (Labetalol Inj 5 Mg/Ml Vial 20 Ml) 10 mg IVP X1 ONE Stop: 12/14/24 19:45 Last Admin: 12/14/24 21:09 Dose: Not Given Levetiracetam (Levetiracetam Inj 100 Mg/Ml Vial 5ml) 1,000 mg IVP X1 ONE Stop: 12/13/24 20:14 Last Admin: 12/13/24 21:02 Dose: 1,000 mg Levothyroxine Sodium (Levothyroxine Sodium 25 Mcg Tablet) 75 mcg NG ACBR JOHNY Stop: 01/13/25 05:59 Last Admin: 12/14/24 06:12 Dose: 75 mcg Lorazepam (Lorazepam 2 Mg/Ml Vial) 2 mg IVP X1 ONE Stop: 12/13/24 20:11 Last Admin: 12/13/24 22:06 Dose: Not Given Metoprolol Tartrate (Metoprolol Tartrate Inj 1 Mg/Ml Amp 5 Ml) 5 mg IVP X1 ONE Stop: 12/16/24 23:39 Last Admin: 12/16/24 23:52 Dose: 5 mg Metoprolol Tartrate (Metoprolol Tartrate Inj 1 Mg/Ml Amp 5 Ml) 5 mg IVP X1 ONE Stop: 12/17/24 00:00 Last Admin: 12/17/24 02:58 Dose: Not Given Metoprolol Tartrate (Metoprolol Tartrate Inj 1 Mg/Ml Amp 5 Ml) 5 mg IVP X1 ONE Stop: 12/17/24 00:00 Last Admin: 12/17/24 00:00 Dose: 5 mg Midazolam HCl (Midazolam Inj 1 Mg/Ml Vial 2 Ml) 2 mg IV X1 ONE Stop: 12/13/24 20:30 Last Admin: 12/13/24 18:46 Dose: 2 mg Midazolam HCl (Midazolam Inj 1 Mg/Ml Vial 2 Ml) 2 mg IV X1 PRN PRN Reason: AGITATION Stop: 12/19/24 18:11 Last Admin: 12/14/24 18:45 Dose: 2 mg Pantoprazole Sodium (Pantoprazole Inj 40 Mg Vial) 40 mg IVP QDAY JOHNY Stop: 01/13/25 08:59 Last Admin: 12/16/24 09:14 Dose: 40 mg Potassium Chloride (Potassium Chloride 10% 20 Meq/15 Ml Udc) 40 meq GT X1 ONE Stop: 12/14/24 01:05 Last Admin: 12/14/24 02:13 Dose: 40 meq Potassium Chloride (Potassium Chloride 10% 20 Meq/15 Ml Udc) 40 meq PO X1 ONE Stop: 12/17/24 08:06 Last Admin: 12/17/24 08:37 Dose: 40 meq Rocuronium [place] (Rocuronium Inj 10 Mg/Ml Vial 10 Ml) 50 mg IVP X1 ONE Stop: 12/13/24 20:11 Last Admin: 12/13/24 18:48 Dose: 50 mg Sodium Chloride (Sodium Chloride Rt 10% 15 Ml Nebu) 5 ml INH X1 ONE Stop: 12/13/24 22:38 Last Admin: 12/14/24 01:19 Dose: Not Given Sodium Chloride (Sodium Chloride Rt 10% 15 Ml Nebu) 5 ml INH X1 ONE Stop: 12/13/24 23:01 Last Admin: 12/14/24 01:19 Dose: Not Given Assessment & Plan Plan 79-year-old female with past medical history of hypertension, hyperlipidemia, hypothyroidism, paroxysmal A-fib not on anticoagulation, and recent stroke s/p TPA in 10/27 and hemorraghic conversion with left-sided residuals in 11/28 who presented to the ED from SNF due to status epilepticus/seizures and admitted to ICU for further management; downgraded upon successful weaning off sedation and back to baseline. Cardiology consulted for management of paroxysmal afib. #Atrial Fibrillation, paroxysmal Patient has history of PAF, dignosed after stroke in 10/2024. No anticoagulation due to recent history of hemorrhagic conversion in November. Patient currently rate and rhythm controlled, however noted to go in and out of atrial fibrillation. Only taking atenolol 50 mg at home. Patient developed episode of afib overnight, was given amiodarone bolus and started on drip with rhythm control achieved. -Started patient on home Metoprolol tartrate 50mg bid -Amiodarone 200 mg by G-Tube BID -Telemetry -continue to hold anticoag in setting of recent hemorrhagic conversion of stroke. -follow up outpatient with cardiology #Acute Encephalopathy secondary to New Onset Seizure #Status epilepticus #History of Stroke w/ Hemorrhagic conversion (11/2024) #Suspicion for Cerebral Mass, unlikely #Acute Respiratory Failure, resolved - extubated #Acute thrombus in the superficial cephalic vein #UTI #Leuckocytosis #Hypertension #CKD stage 3A #Electrolyte abnormalities #Hypothyroidism Management as per primary team. DVT prophylaxis: Contraindicated GI prophylaxis: None Diet: Pureed Lines: PIV Code status: Full Code Plan of care discussed with attending Dr. Richy Franklin MD PGY-1
[2024-12-17] MEDS: AMIODARONE HCL 200 MG TABLET GT (20:26)
--- NOTE | 2024-12-17 21:25 | ESPR_ITS ---
Documentation for date of: 12/17/24 Subjective Subjective Interval history: Patient was seen in telemetry today at the bedside. Continue to have dense left hemiplegia with spasticity and contracture. She moves right upper and lower extremities well. Self-care has not had any seizures since admission. Exam - Neurology Vital Signs Temp Pulse Resp BP Pulse Ox O2 Del Method O2 Flow Rate 97.6 F 97 20 146/84 H 94 L Room Air 4 12/17/24 20:00 12/17/24 20:26 12/17/24 20:00 12/17/24 20:26 12/17/24 20:00 12/17/24 20:00 12/15/24 21:01 FiO2 21 12/15/24 10:05 Narrative Exam GENERAL APPEARANCE: Well hydrated, well-nourished , in no acute distress HEENT: Normocephalic, atraumatic, extraocular movements intact. Pupils: Equal reacting to light NECK: Supple, no JVD or bruits. CARDIOVASULAR: Heart: S1, S2 heard, regular without S3-S4 or murmur no rubs or gallops. LUNGS/CHEST: Clear to auscultation bilaterally. No rails, rhonchi, or wheezing. Normal inspection. ABDOMEN: Soft, nontender, with normal bowel sounds. No pulsatile masses. No rebound, rigidity, or guarding. Normal inspection and palpation. EXTREMITIES: Normal inspection and palpation. No edema, clubbing or cyanosis. SKIN: Warm and dry without rashes. Normal inspection. MUSCULOSKELETAL: No cervical, thoracic, lumbar or midline bony tenderness. Normal inspection. NEURO: Patient is awake, alert, continue to have dense left hemiplegia with spasticity and contracture noted. Moves right upper and lower extremities. Gait: Not tested. PSYCHIATRIC: She has a flat affect Objective Labs 12/17/24 03:55 12/17/24 03:55 Labs: Laboratory Results - last 24 hr 12/17/24 03:55 WBC 7.3 RBC 4.10 Hgb 12.3 Hct 36.9 MCV 90 MCH 30.0 MCHC 33.3 RDW Std Deviation 43.1 Plt Count 412 Neut % (Auto) 63 Lymph % (Auto) 23 [place] % (Auto) 10 Eos % (Auto) 1 Baso % (Auto) 1 Neut # (Auto) 4.6 Lymph # (Auto) 1.7 [place] # (Auto) 0.8 Eos # (Auto) 0.1 Baso # (Auto) 0.1 Immature Gran # (Auto) 0.02 H Absolute Nucleated RBC 0.00 Immature Gran % 0 Nucleated RBC % 0 Sodium 140 Potassium 3.1 L D Chloride 103 Carbon Dioxide 25.4 Anion Gap 12 BUN 24 H Creatinine 1.3 Estim Creat Clear Calc 29.3 L eGFR 42 L BUN/Creatinine Ratio 18 Glucose 125 H Calculated Osmolality 284 Calcium 10.0 Corrected Calcium 10.4 H Phosphorus 3.0 Magnesium 1.8 Total Bilirubin 0.3 AST 52 H ALT 42 Alkaline Phosphatase 115 D Total Protein 6.6 Albumin 3.5 Globulin 3.1 Albumin/Globulin Ratio 1.1 L ABG Interpretation ABG results: 12/13/24 12/14/24 12/15/24 20:39 05:34 03:39 ABG pH 7.53 H 7.42 D 7.51 H ABG pCO2 33 39 33 ABG pO2 468 H 235 H D 102 D ABG HCO3 27 H 26 27 H ABG O2 Saturation 101 H 101 H 99 H ABG Base Excess 5 H 1 4 H Assessment & Plan Assessment and plan (1) Acute right MCA stroke: Status: Acute Assessment and plan: Continue with range of motion exercises on the left upper and lower extremities. MRI brain showed findings consistent with large infarct in the right frontal and parietal area.(Bright signal on DWI indicating restricted diffusion and low signal on the ADC map confirming restricted diffusion) In my opinion it is not suggestive of brain mets (Mets ypically shows less diffusion restriction that appears hypointense on DWI with a relatively higher ADC value). Will go ahead and get the imaging studies from October and November from [facility] for comparison. Will hold off on antiplatelet/anticoagulant therapy because of the recent intracerebral hemorrhage event. (2) Status epilepticus: Status: Resolved Assessment and plan: No seizures reported after admission, continue with Keppra. EEG did not show any epileptiform discharges (3) Acute UTI: Status: Acute Assessment and plan: Continue with antibiotics, noted switched from ceftriaxone to Zosyn
[2024-12-18] VITALS (11 sets, daily range): BP systolic 131–156; BP diastolic 68–96; PULSE 41–101; RESP 13–20; TEMP 36.2–36.9; O2SAT 93–96; BMI 24.6
[2024-12-18] MEDS: LEVOTHYROXINE SODIUM 112 MCG TABLET NG (05:23)
[2024-12-18] MEDS: AMIODARONE HCL 200 MG TABLET GT ×2 (08:16→20:47)
[2024-12-18] MEDS: METOPROLOL TARTRATE 25 MG TABLET 50 MG PO ×2 (08:16→20:47)
[2024-12-18] MEDS: NIFEdipine XL 30 MG TABCR 60 MG PO (08:17)
[2024-12-18] MEDS: levETIRAcetam INJ 100 MG/ML VIAL 5ML 1000 MG IVP ×2 (08:17→20:46)
[2024-12-18] MEDS: HEPARIN SOD INJ 5000 UNIT/ML VIAL SC ×2 (08:17→20:47)
[2024-12-18] MEDS: CIPROFLOXACIN HCL 250 MG TABLET 500 MG PO (08:17)
[2024-12-18 09:04] LABS: Basophils # (Auto) 0.1 Thou/mm3 (0.0-0.2); Basophils % (Auto) 1 % (0-2.5); Eosinophils # (Auto) 0.2 Thou/mm3 (0.0-0.5); Eosinophils % (Auto) 2 % (0-10); Hematocrit 39.5 % (36.0-46.0); Hemoglobin 13.2 g/dL (12.0-16.0); Immature Granulocytes % (Auto) 0 % (0-0); Immature Granulocytes Auto 0.02 Thou/mm3 (0.00-0.00); Lymphocytes # (Auto) 1.9 Thou/mm3 (1.0-4.8); Lymphocytes % (Auto) 26 % (10-50); Mean Corpuscular HGB Conc 33.4 g/dl (31.0-37.0); Mean Corpuscular Volume 90 fL (80-100); Monocytes # (Auto) 0.6 Thou/mm3 (0.0-0.8); Monocytes % (Auto) 8 % (0-12); Neutrophils # (Auto) 4.5 Thou/mm3 (1.8-7.7); Neutrophils % (Auto) 63 % (37-80); Nucleated Red Blood Cell % 0 /100 WBC (0); Platelet Count 462 Thou/mm3 (140-440); RDW Standard Deviation 43.1 fL (36.4-46.3); White Blood Count 7.2 Thou/mm3 (3.6-11.0)
[2024-12-18 09:23] LABS: Alanine Aminotransferase 30 U/L (10-49); Albumin, Serum 3.6 gm/dL (3.4-4.8); Albumin/Globulin Ratio 1.2 (1.2-2.2); Alkaline Phosphatase 102 U/L (46-116); Anion Gap 10 (7-16); Aspartate Amino Transferase 29 U/L (0-34); BUN/Creatinine Ratio 17 Ratio (12-20); Bilirubin,Total 0.3 mg/dL (0.3-1.2); Blood Urea Nitrogen 19 mg/dL (9-23); Calcium 10.1 mg/dL (8.3-10.6); Calcium (Corrected) 10.4 mg/dL (8.5-10.1); Carbon Dioxide 25.3 mMol/L (20.0-31.0); Chloride 104 mMol/L (98-107); Creatinine (Component) 1.1 mg/dL (0.6-1.3); Estimated Creatinine Clearance 34.7 mL/min (>60); Globulin 3.1 gm/dL (2.3-3.5); Glucose 156 mg/dL (74-106); Osmolality,Calculated 282 (275-295); Potassium 3.6 mMol/L (3.4-5.1); Sodium 139 mMol/L (136-145); Total Protein 6.7 gm/dL (5.7-8.2); eGFR 51 See Note
[2024-12-18] MEDS: SENNOSIDES SYRUP 8.8 MG/5 ML UDC NG (10:07)
--- NOTE | 2024-12-18 10:19 | ESPR_ITS ---
<Statement entered by Junior Lockhart MD - 12/19/24 17:46> Patient evaluated in cardiology rounds with PGY 1 Dr. Clifford Bustos appears to be doing quite stable maintaining sinus rhythm continue amiodarone for now physical therapy anticoagulation will be deferred at least for 2 more months. Documentation for date of: 12/18/24 Subjective Subjective Interval history: No overnight events. Patient seen and examined at bedside, resting comfortably. Patient denies shortness of breath, chest pain, weakness, fatigue. Regular heart rate and rhythm. Continue current medical management for paroxysmal A-fib. Exam Vital Signs Temp Pulse Resp BP Pulse Ox O2 Del Method O2 Flow Rate 97.8 F 69 14 133/77 H 94 L Room Air 4 12/18/24 08:00 12/18/24 08:17 12/18/24 08:00 12/18/24 08:17 12/18/24 08:00 12/18/24 08:00 12/18/24 03:54 FiO2 21 12/18/24 03:54 Narrative Exam PE: Gen: Well-developed and well-nourished. Elderly. HEENT: NCAT, PERRLA, EOMI, MMM, anicteric conjunctivae. Left facial droop. CVS: normal S1 and S2. RRR. No M/R/G. Resp: CTA B/L. No rhonchi, rales, crackles or wheezing. Abd: soft, non-tender, non-distended. MSK: Good ROM in RUE & RLE. No rash. 2+ pitting edema LUE. Trace edema LLE. Neuro: CN II-XII grossly intact. Strength 5/5 in RUE & RLE. Alert and oriented x3. Left sided hemiplegia. Psych: appropriate mood and affect. Objective Labs 12/18/24 08:37 12/18/24 08:37 Labs: Laboratory Results - last 24 hr 12/18/24 08:37 WBC 7.2 RBC 4.40 Hgb 13.2 Hct 39.5 MCV 90 MCH 30.0 MCHC 33.4 RDW Std Deviation 43.1 Plt Count 462 H D Neut % (Auto) 63 Lymph % (Auto) 26 Daniels % (Auto) 8 Eos % (Auto) 2 Baso % (Auto) 1 Neut # (Auto) 4.5 Lymph # (Auto) 1.9 Daniels # (Auto) 0.6 Eos # (Auto) 0.2 Baso # (Auto) 0.1 Immature Gran # (Auto) 0.02 H Absolute Nucleated RBC 0.00 Immature Gran % 0 Nucleated RBC % 0 Sodium 139 Potassium 3.6 D Chloride 104 Carbon Dioxide 25.3 Anion Gap 10 BUN 19 Creatinine 1.1 Estim Creat Clear Calc 34.7 L eGFR 51 L BUN/Creatinine Ratio 17 Glucose 156 H Calculated Osmolality 282 Calcium 10.1 Corrected Calcium 10.4 H Total Bilirubin 0.3 AST 29 ALT 30 Alkaline Phosphatase 102 Total Protein 6.7 Albumin 3.6 Globulin 3.1 Albumin/Globulin Ratio 1.2 ABG Interpretation ABG results: 12/13/24 12/14/24 12/15/24 20:39 05:34 03:39 ABG pH 7.53 H 7.42 D 7.51 H ABG pCO2 33 39 33 ABG pO2 468 H 235 H D 102 D ABG HCO3 27 H 26 27 H ABG O2 Saturation 101 H 101 H 99 H ABG Base Excess 5 H 1 4 H Quality Measures Quality Measures none Advance care planning discussed with:: patient Assessment & Plan Assessment Current Active Medications: Generic Name Dose Route Start Last Admin Trade Name Freq PRN Reason Stop Dose Admin Acetaminophen 650 mg 12/16/24 15:40 12/17/24 15:47 Acetaminophen Amanda 325 Mg/10 Ml Udc NG 01/15/25 15:39 650 mg Q6HR PRN Administration Fever >100.4 and Pain 1-3 Acetaminophen 650 mg 12/16/24 15:42 Acetaminophen Supp 650 Mg Supp SD 01/12/25 23:56 Q6HR PRN FEVER>101.5 Amiodarone HCl 200 mg 12/17/24 21:00 12/18/24 08:16 Amiodarone Hcl 200 Mg Tablet GT 01/16/25 20:59 200 mg BID JOHNY Administration Ciprofloxacin 500 mg 12/17/24 10:30 12/18/24 08:17 Ciprofloxacin Hcl 250 Mg Tablet PO 12/24/24 10:29 500 mg QDAY JOHNY Administration Protocol Heparin Sodium (Porcine) 5,000 unit 12/14/24 09:00 12/18/24 08:17 Heparin Sod Inj 5000 Unit/Ml Vial SC 12/28/24 08:59 5,000 unit Q12HR JOHNY Administration Levetiracetam 1,000 mg 12/14/24 09:00 12/18/24 08:17 Levetiracetam Inj 100 Mg/Ml Vial 5ml IVP 01/13/25 08:59 1,000 mg Q12HR JOHNY Administration Levothyroxine Sodium 112 mcg 12/15/24 06:00 12/18/24 05:23 Levothyroxine Sodium 112 Mcg Tablet NG 01/14/25 05:59 112 mcg ACBR JOHNY Administration Metoprolol Tartrate 50 mg 12/17/24 10:20 12/18/24 08:16 Metoprolol Tartrate 25 Mg Tablet PO 01/16/25 10:19 50 mg BID JOHNY Administration Nifedipine 60 mg 12/17/24 09:00 12/18/24 08:17 Nifedipine Xl 30 Mg Tabcr PO 01/16/25 08:59 60 mg QDAY JOHNY Administration Sennosides 8.8 mg 12/17/24 09:00 12/18/24 10:07 Sennosides Syrup 8.8 Mg/5 Ml Udc NG 01/16/25 08:59 8.8 mg QDAY JOHNY Administration Protocol Plan 79-year-old female with past medical history of hypertension, hyperlipidemia, hypothyroidism, paroxysmal A-fib not on anticoagulation, and recent stroke s/p TPA in 10/27 and hemorraghic conversion with left-sided residuals in 11/28 who presented to the ED from SNF due to status epilepticus/seizures and admitted to ICU for further management; downgraded upon successful weaning off sedation and back to baseline. Cardiology consulted for management of paroxysmal afib. #Atrial Fibrillation, paroxysmal Patient has history of PAF, dignosed after stroke in 10/2024. No anticoagulation due to recent history of hemorrhagic conversion in November. Patient currently rate and rhythm controlled, however noted to go in and out of atrial fibrillation. Only taking atenolol 50 mg at home. Patient developed episode of afib overnight, was given amiodarone bolus and started on drip with rhythm control achieved. Remained rate controlled with 20 mg via G-tube. -Metoprolol tartrate 50mg twice daily -Amiodarone 200 mg by G-Tube BID -Telemetry -continue to hold anticoag in setting of recent hemorrhagic conversion of stroke. -follow up outpatient with cardiology #Acute Encephalopathy secondary to New Onset Seizure #Status epilepticus #History of Stroke w/ Hemorrhagic conversion (11/2024) #Suspicion for Cerebral Mass, unlikely #Acute Respiratory Failure, resolved - extubated #Acute thrombus in the superficial cephalic vein #UTI #Leuckocytosis #Hypertension #CKD stage 3A #Electrolyte abnormalities #Hypothyroidism Management as per primary team. DVT prophylaxis: Contraindicated GI prophylaxis: None Diet: Pureed Lines: PIV Code status: Full Code Plan of care discussed with attending Dr. Richy Franklin MD PGY-1
[2024-12-18] MEDS: ACETAMINOPHEN SOL 325 MG/10 ML UDC 650 MG NG (11:31)
--- NOTE | 2024-12-18 11:47 | PC.SS ---
Addendum entered by TAMIE Dove 12/18/24 16:28: Per bed side nurse, patient will need to be on contact isolation for five days and receive antibiotics. Reached out to [facility] and received no response. [facility], [facility] informs no isolation bed available. Updated bed side nurse Sarah. Addendum entered by TAMIE Dove 12/18/24 15:51: SS update: patient's daughter expressed concerns regarding isolation precautions, medical team to come speak with the patient and family. Addendum entered by TAMIE Dove 12/18/24 15:08: Presented accepting SNF choices: [facility] and [facility]. Or going home. Family wants to discuss on choice. SS to follow up with patient and daughter. Daughter is aware DC orders are in and two accepting facilities able to take the patient today. Addendum entered by TAMIE Dove 12/18/24 14:58: [facility]- declined. [facility]- no open bed. [facility]- declined. [facility]- open bed, able to accept patient today. Addendum entered by TAMIE Dove 12/18/24 14:47: SS follow up: spoke with patient and daughter Cat at bed side regarding choices. Family is requesting [facility]. Do not want patient to return to [facility] due to poor experience while there. SS following up with local SNF's to determine if able to accept patient/open bed availability. Pending responses. Original Note: SS follow up: Spoke with Stella at [facility] she informs patient is able to return upon d/c if the patient wishes to return back. SS to follow up on choices.
--- NOTE | 2024-12-18 14:23 | ESDS_ITS ---
<Statement entered by Jay Lozada MD - 12/19/24 16:54> I discussed with and supervised the sports internship physician involved in the care of this patient. Patient assessment and plan was discussed with entire medicine team, including my attending. I agree with the assessment and plan as documented by sports internship doctor. Patient care was discussed with my attending physician Dr. Sandrine Lozada, PGY-2 Planned Discharge Date 12/18/24 DS: Providers Provider Date of admission: 12/13/24 23:57 Primary care physician: Cayden Little MD Admitting Provider: Richard Jay MD Attending Provider on Admission: Shelly Duran MD Consults: 12/13/24 23:48 Consult to Neurology / Tele-Neurology Stat Comment: New onset seizures Consulting Provider: Charles Rolon 12/16/24 09:08 Referral Physical Therapy Routine Comment: Physician Instructions: Referral Speech Therapy Routine Comment: 12/17/24 10:16 Consult to Cardiology Routine Comment: Consulting Provider: Junior Lockhart Instructions: possible afib Attending Provider on DC: Delano Yates MD Discharging Provider: Delano Yates MD DS: Diagnosis Problem List Completed Was Problem List Reviewed/Reconciled?: Yes Hospital Course Hospital Course Hospital course: 79-year-old female with past medical history of hypertension, hyperlipidemia, hypothyroidism, paroxysmal A-fib, stroke with left-sided residuals presented to the ED 12/14 with status epilepticus. Patient has history of right MCA thrombus which she received tenecteplase and was transferred to [facility] for thrombectomy; however, the stroke had a hemorrhagic conversion. Patient has been in a SNF since then. Patient developed seizures at the SNF and was brought in and upgraded to ICU for sedation. Repeat head CT showed lesions in the right frontal lobe and right parietal lobe; MRI brain was ordered which showed enhancing lesions in the right frontal lobe and right parietal lobe. Neurology was consulted and their recommendations were that the lesions were most likely not brain metastasis and that they were more consistent with a large infarct in the right frontal and parietal area. A request has been made to get imaging studies from from [facility] for comparison. Patient was started on Keppra and did not have any seizure activity while in the hospital. EEG was ordered which showed diffuse slowing which is found usually with metabolic/vascular pathologies. Patient was downgraded from ICU after being weaned off sedation and started working with physical therapy/speech therapy. Cardiology was consulted as the patient did develop atrial fibrillation while in the hospital; was initially started on amiodarone drip and then transition to oral formulation. During hospitalization, patient did have an acute superficial cephalic vein thrombus but due to history of hemorrhagic conversion; anticoagulation is held and based off cardiology recommendation, the thrombus will degrade on its own. Patient also had a UTI which was treated initially with ceftriaxone, then switched to Zosyn based off sensitivities and finally switched to oral formulation Cipro. Patient's sputum culture was positive for Pseudomonas as a result no changes were made to antibiotics as ciprofloxacin covered Pseudomonas. Patient will be discharged with the following strict instructions. Please take amiodarone 200 mg tablet twice a day, atorvastatin 40 mg, nifedipine 60 mg daily Take levothyroxine 112 mcg in the morning before any meal or other medication; at least 1 hour Please take ciprofloxacin 500 mg for the next 8 days as directed Follow-up with your PCP within 1 to 2 weeks of discharge Follow-up with your radioisotope production operator, Dr. Lockhart, within 1 to 2 weeks of discharge Follow-up with her neurologist, Dr. Rolon, within 1 to 2 weeks of discharge If your symptoms worsen or if you develop new seizures, chest pain, shortness of breath or bleeding please come back to the ED immediately Hospital Diagnosis: #Acute Encephalopathy secondary to New Onset Seizure #Acute cerebrovascular accident #Status epilepticus #History of Stroke w/ Hemorrhagic conversion (11/2024) #Acute Respiratory Failure, resolved - extubated #Acute thrombus in the superficial cephalic vein #UTI #Leuckocytosis #Hypertension #CKD stage 3A #Electrolyte abnormalities #Hypothyroidism Delano Yates, PGY-1 Time Spent with Patient Time attestation: Total time spent providing and/or coordinating discharge services: 45 minutes Time spent: Greater than 30 minutes Exam Vital Signs Temp Pulse Resp BP Pulse Ox O2 Del Method O2 Flow Rate 97.9 F 80 15 146/82 H 94 L Room Air 4 12/18/24 12:00 12/18/24 12:13 12/18/24 12:13 12/18/24 12:00 12/18/24 12:13 12/18/24 12:00 12/18/24 03:54 FiO2 21 12/18/24 03:54 Narrative Exam General: Elderly female, in no acute distress on NC. Alert and awake. Able to follow some commands. HEENT: NC/AT, NT, PERRLA, MMM Lungs: CTAB, no wheezing, rhonchi CVS: S1S2, RRR, no murmurs or rubs heard ABD: soft, non-distended, non-tender, presence of PEG tube noted : G-tube in place, intact, and no signs of erythema or exudate EXT: radial pulses 2+ BL, DP pulses 2 + BL, Neuro: GCS 12. Patient unable to state her name at this time. Left facial droop and left hemiparesis. 3/5 motor strength in RUE/RLE. Discharge Plan Plan Patient Disposition: Xfer Skilled Nsg Fac (SNF) Care Plan Goals: Please take amiodarone 200 mg tablet twice a day, atorvastatin 40 mg, nifedipine 60 mg daily Take levothyroxine 112 mcg in the morning before any meal or other medication; at least 1 hour Please take ciprofloxacin 500 mg for the next 8 days as directed Follow-up with your PCP within 1 to 2 weeks of discharge Follow-up with your radioisotope production operator, Dr. Lockhart, within 1 to 2 weeks of discharge Follow-up with her neurologist, Dr. Rolon, within 1 to 2 weeks of discharge If your symptoms worsen or if you develop new seizures, chest pain, shortness of breath or bleeding please come back to the ED immediately Prescriptions/Referrals Prescriptions/Med Rec: New amiodarone 200 mg Tablet 200 mg G-tube BID 30 Days Qty: 60 0RF levothyroxine 112 mcg capsule 112 mcg PO ACBR Qty: 30 0RF nifedipine 30 mg Tablet Extended Release 24hr 60 mg PO QDAY 30 Days Qty: 60 0RF ciprofloxacin HCl 250 mg Tablet 500 mg PO QDAY 8 Days Qty: 16 0RF atorvastatin 20 mg Tablet 40 mg PO HS 30 Days Qty: 60 0RF Continued docusate sodium [Colace] 100 mg capsule 100 mg PO Q12HR PRN (Reason: constipation ) Rx Instructions: Hold for loose stools ezetimibe 10 mg tablet 10 mg feeding tube .qday Patient Comments: TAKE 1 TABLET BY MOUTH EVERY DAY levetiracetam [Keppra] 100 mg/mL solution 500 mg PO Q12H lidocaine 5 % adhesive patch,medicated 1 patch topical Q24H Rx Instructions: leave on most painful area for up to 12 hrs CalaSoothe 0.44-20.6 % cream in packet 1 applic topical Q6HR PRN (Reason: pain) metoprolol tartrate [Lopressor] 50 mg tablet 50 mg PO BID sennosides [senna] 8.6 mg tablet 8.6 mg PO Q12H PRN (Reason: constipation) acetaminophen [Tylenol] 325 mg tablet 650 mg PO Q4H PRN (Reason: pain) Held tizanidine 2 mg capsule 2 mg PO HS Hold Instructions: Resume on 01/15/25. Discontinued clonidine HCl 0.1 mg tablet 0.1 mg PO Q12H PRN (Reason: hypertensive emergency) Rx Instructions: BP >170 or DPB >90 levothyroxine 75 mcg tablet 75 mcg feeding tube QDAY Referrals: Cayden Little MD [Primary Care Provider] - Junior Lockhart MD [Physician] - Charles Rolon MD [Physician] - Patient/Caregiver Discharge Instructions Education Materials: Discharge Instructions for Epilepsy, Discharge Instruct ions for Stroke Print Language: Wallisian Stand Alone Forms: [facility] Award Info., Patient Portal Info Letter Quality Discharge Quality Measures none (hx of hemorrhagic conversion) Attestestation MD Attestation I attest that I was physically present for the evaluation, physical examination, lab and imaging review of the patient with the residents. I discussed the case with the residents and agree with the findings and plans of care as documented above. Fabio Deluca MD
--- NOTE | 2024-12-18 16:27 | ESPR_ITS ---
<Statement entered by Jay Lozada MD - 12/19/24 16:56> I discussed with and supervised the web development intern physician involved in the care of this patient. Patient assessment and plan was discussed with entire medicine team, including my attending. I agree with the assessment and plan as documented by web development intern doctor. Patient care was discussed with my attending physician Dr. Sandrine Lozada, PGY-2 Documentation for date of: 12/18/24 Subjective Subjective Interval history: 12/18/2024: No acute overnight events to report. Patient seen and examined in hospital and remains in new baseline. Per cardiology recommendations, patient will require amiodarone 200 mg outpatient. Also, the patient does not require anticoagulation for the superficial cephalic vein thrombus and recommendation is that it will degrade on its own. Neurology will follow the patient regarding imaging studies from [place]. Patient also started on medium intensity statin for stroke. Patient is on ciprofloxacin which covers for both UTI along with the new sputum culture findings which included Pseudomonas. Patient is medically stable; however, will require 3 additional days of isolation for Pseudomonas infection. Exam Vital Signs Temp Pulse Resp BP Pulse Ox O2 Del Method O2 Flow Rate 97.9 F 80 15 146/82 H 94 L Room Air 4 12/18/24 12:00 12/18/24 12:13 12/18/24 12:13 12/18/24 12:00 12/18/24 12:13 12/18/24 12:00 12/18/24 03:54 FiO2 21 12/18/24 03:54 Narrative Exam General: Elderly female, in no acute distress on NC. Alert and awake. Able to follow some commands. HEENT: NC/AT, NT, PERRLA, MMM Lungs: CTAB, no wheezing, rhonchi CVS: S1S2, RRR, no murmurs or rubs heard ABD: soft, non-distended, non-tender, presence of PEG tube noted : G-tube in place, intact, and no signs of erythema or exudate EXT: radial pulses 2+ BL, DP pulses 2 + BL, Neuro: GCS 12. Patient unable to state her name at this time. Left facial droop and left hemiparesis. 3/5 motor strength in RUE/RLE. Objective Labs 12/19/24 08:42 12/19/24 08:42 Labs: Laboratory Results - last 24 hr 12/18/24 08:37 WBC 7.2 RBC 4.40 Hgb 13.2 Hct 39.5 MCV 90 MCH 30.0 MCHC 33.4 RDW Std Deviation 43.1 Plt Count 462 H D Neut % (Auto) 63 Lymph % (Auto) 26 [place] % (Auto) 8 Eos % (Auto) 2 Baso % (Auto) 1 Neut # (Auto) 4.5 Lymph # (Auto) 1.9 [place] # (Auto) 0.6 Eos # (Auto) 0.2 Baso # (Auto) 0.1 Immature Gran # (Auto) 0.02 H Absolute Nucleated RBC 0.00 Immature Gran % 0 Nucleated RBC % 0 Sodium 139 Potassium 3.6 D Chloride 104 Carbon Dioxide 25.3 Anion Gap 10 BUN 19 Creatinine 1.1 Estim Creat Clear Calc 34.7 L eGFR 51 L BUN/Creatinine Ratio 17 Glucose 156 H Calculated Osmolality 282 Calcium 10.1 Corrected Calcium 10.4 H Total Bilirubin 0.3 AST 29 ALT 30 Alkaline Phosphatase 102 Total Protein 6.7 Albumin 3.6 Globulin 3.1 Albumin/Globulin Ratio 1.2 ABG Interpretation ABG results: 12/13/24 12/14/24 12/15/24 20:39 05:34 03:39 ABG pH 7.53 H 7.42 D 7.51 H ABG pCO2 33 39 33 ABG pO2 468 H 235 H D 102 D ABG HCO3 27 H 26 27 H ABG O2 Saturation 101 H 101 H 99 H ABG Base Excess 5 H 1 4 H Quality Measures Quality Measures none (hx of hemorrhagic conversion) Advance care planning discussed with:: child Assessment & Plan Assessment Current Active Medications: Generic Name Dose Route Start Last Admin Trade Name Freq PRN Reason Stop Dose Admin Acetaminophen 650 mg 12/16/24 15:40 12/18/24 11:31 Acetaminophen Amanda 325 Mg/10 Ml Udc NG 01/15/25 15:39 650 mg Q6HR PRN Administration Fever >100.4 and Pain 1-3 Acetaminophen 650 mg 12/16/24 15:42 Acetaminophen Supp 650 Mg Supp [place] 01/12/25 23:56 Q6HR PRN FEVER>101.5 Amiodarone HCl 200 mg 12/17/24 21:00 12/18/24 08:16 Amiodarone Hcl 200 Mg Tablet GT 01/16/25 20:59 200 mg BID JOHNY Administration Atorvastatin Calcium 40 mg 12/18/24 21:00 Atorvastatin Calcium 20 Mg Tablet PO 01/17/25 20:59 HS JOHNY Ciprofloxacin 500 mg 12/17/24 10:30 12/18/24 08:17 Ciprofloxacin Hcl 250 Mg Tablet PO 12/24/24 10:29 500 mg QDAY JOHNY Administration Protocol Heparin Sodium (Porcine) 5,000 unit 12/14/24 09:00 12/18/24 08:17 Heparin Sod Inj 5000 Unit/Ml Vial SC 12/28/24 08:59 5,000 unit Q12HR JOHNY Administration Levetiracetam 1,000 mg 12/14/24 09:00 12/18/24 08:17 Levetiracetam Inj 100 Mg/Ml Vial 5ml IVP 01/13/25 08:59 1,000 mg Q12HR JOHNY Administration Levothyroxine Sodium 112 mcg 12/15/24 06:00 12/18/24 05:23 Levothyroxine Sodium 112 Mcg Tablet NG 01/14/25 05:59 112 mcg ACBR JOHNY Administration Metoprolol Tartrate 50 mg 12/17/24 10:20 12/18/24 08:16 Metoprolol Tartrate 25 Mg Tablet PO 01/16/25 10:19 50 mg BID JOHNY Administration Nifedipine 60 mg 12/17/24 09:00 12/18/24 08:17 Nifedipine Xl 30 Mg Tabcr PO 01/16/25 08:59 60 mg QDAY JOHNY Administration Sennosides 8.8 mg 12/17/24 09:00 12/18/24 10:07 Sennosides Syrup 8.8 Mg/5 Ml Udc NG 01/16/25 08:59 8.8 mg QDAY JOHNY Administration Protocol Plan 79-year-old female with past medical history of hypertension, hyperlipidemia, hypothyroidism, paroxysmal A-fib not on anticoagulation, and recent stroke s/p TPA in 10/27 and hemorraghic conversion with left-sided residuals in 11/28 who presented to the ED from [facility] due to status epilepticus/seizures and admitted to ICU for further management; downgraded upon successful weaning off sedation and back to baseline. #Acute Encephalopathy secondary to New Onset Seizure #Status epilepticus #History of Stroke w/ Hemorrhagic conversion (11/2024) #Suspicion for Cerebral Mass, unlikely #Acute Respiratory Failure, resolved - extubated Patient intubated for airway protection. Patient extubated, 12/15/24 and is awake and alert. Patient presented to the ED after suffering a new onset seizure. Per family, sezure was >5 mins concerning for status epilepticus. Patient was administered Versed 4 mg by EMS in the field. Patient was subsequently intubated in the ED and started on Fentanyl and Versed gtt. Sedation has since been discontinued with no seizure activity noted thus far. MRI showed enhancing lesions in R frontal and parietal lobe. D/t findings on MRI, will request hospital records from patient's previous hospitalizations at [facility]. Given x1 dose of Decadron in ICU 2/2 MRI findings being suspicious for mass Neurology consulted, appreciate recommendations EEG shows diffuse slowing synonymous with metabolic/degenerative/vascular encephalopathy Plan: Per neurology, MRI findings are more likely to be 2/2 to ischemic stroke vs. true cerebral mass/metastasis based off characteristic noted in MRI Continue Keppra 1000mg BID Started on Atorvastatin 40mg HS #Acute thrombus in the superficial cephalic vein As noted by the venous doppler study Neurology consulted regarding anticoagulation; requesting CT Head w/o contrast CT Head shows: Stable focal areas of edema in the right frontal lobe and right parietal lobe and stable areas of possible small hemorrhage in both locations Plan: Cardiology recommends no anticoagulation; thrombus will degrade on its own #Atrial Fibrillation, paroxysmal Patient has history of PAF No anticoagulation due to recent history of hemorrhagic conversion. Patient currently rate and rhythm controlled, however noted to go in and out of atrial fibrillation. Plan: Continue Metorpolol tartrate 50mg bid Continue Amiodarone 200mg gt bid Cardiology recommended, appreciate recommendations #UTI #Pseudomonas in sputum #Leuckocytosis Urine analysis: Plus protein, 2+ blood, 3+ leukocyte esterase, 2+ bacteriuria Blood cultures (-) over 48 hours Urine cultures (+) for Citrobacter farmerii Patient has Pseudomonas growing in sputum culture; adequate coverage with Zosyn and Cipro for 2 days Plan: Continue Cipro 500mg qday from Zosyn Will require isolation for additional 3 days #Hypertension On home nifedipine ER 60mg qday Patient hypertensive on 12/17 with elevated diastolic blood pressure Plan: Continue home medication #G-tube dependent Continue tube feeds tonight at low rate Patient is able to tolerate a pureed diet during the day and has tube feeds at night Plan: Cardiac, Dysphagia I (pureed) #CKD stage 3A #Electrolyte abnormalities Patient kidney function stable Cr stable Plan: Repleted lytes Continue to monitor #Hypothyroidism TSH: 59.24, free T4 1.02 Plan: Continue Levothyroxine to 112 mcg ACBR Follow-up outpatient with thyroid labs; likely 2/2 to acutely ill status affecting TSH levels Hospital Managment: Lines: PIV Diet: Cardiac, dysphagia I (pur?ed) Bowel: Senna GI prophylaxis: Not needed DVT prophylaxis: Heparin subcu Dispo: Pending 3-day isolation for Pseudomonas Code: Full Patient seen and examined with attending Dr. Deluca and senior resident Dr. Neville Yates, PGY-1 Attending Provider Attestation/Addendum I attest that I was physically present for the evaluation, physical examination, lab and imaging review of the patient with the residents. I discussed the case with the residents and agree with the findings and plans of care as documented above. At bedside today, patient appears comfortable, alert and awake, able to follow commands but continues to be confused. Continues to have left-sided weakness. Continues to be on Keppra and atorvastatin. Not on anticoagulation or antiplatelets due to history of hemorrhagic conversion of stroke. Patient is noted to have Pseudomonas in her sputum culture. Patient has been stable for discharge but currently needing isolation due to the Pseudomonas and culture. We will continue with ciprofloxacin awaiting 5 days since start of antibiotic sensitive to Pseudomonas. Fabio Deluca MD
--- NOTE | 2024-12-18 17:52 | PC.NURSE ---
discharge order written this pm, family need to decide whether patient will go home or go to either [facility] or [facility].
--- NOTE | 2024-12-18 17:55 | PC.NURSE ---
infectious nurse called this afternoon stating that patient need to to be a contact isolation for pseudomonas in sputum, patient started taking cipro antibiotic yesterday via gastric tube, called social worker school and let him know. hanny said [facility] has no isolation bed at this time, call dr. bruno and made aware, dr. bruno cancel discharge. patient need to stay for 3 more days for antibiotic as dr. bruno stated.
[2024-12-18] MEDS: ATORVASTATIN CALCIUM 20 MG TABLET 40 MG PO (20:47)
--- NOTE | 2024-12-18 23:17 | ESPR_ITS ---
Documentation for date of: 12/18/24 Subjective Subjective Interval history: Patient was seen in telemetry today at the bedside. Continue to have dense left hemiplegia with spasticity and contracture. She moves right upper and lower extremities well. She has not had any seizures since admission. Exam - Neurology Vital Signs Temp Pulse Resp BP Pulse Ox O2 Del Method O2 Flow Rate 98.4 F 81 13 137/86 H 96 Room Air 4 12/18/24 20:00 12/18/24 20:47 12/18/24 20:00 12/18/24 20:47 12/18/24 20:00 12/18/24 20:00 12/18/24 03:54 FiO2 21 12/18/24 03:54 Narrative Exam GENERAL APPEARANCE: Well hydrated, well-nourished , in no acute distress HEENT: Normocephalic, atraumatic, extraocular movements intact. Pupils: Equal reacting to light NECK: Supple, no JVD or bruits. CARDIOVASULAR: Heart: S1, S2 heard, regular without S3-S4 or murmur no rubs or gallops. LUNGS/CHEST: Clear to auscultation bilaterally. No rails, rhonchi, or wheezing. Normal inspection. ABDOMEN: Soft, nontender, with normal bowel sounds. No pulsatile masses. No rebound, rigidity, or guarding. Normal inspection and palpation. EXTREMITIES: Normal inspection and palpation. No edema, clubbing or cyanosis. SKIN: Warm and dry without rashes. Normal inspection. MUSCULOSKELETAL: No cervical, thoracic, lumbar or midline bony tenderness. Normal inspection. NEURO: Patient is awake, alert, continue to have dense left hemiplegia with spasticity and contracture noted. Moves right upper and lower extremities. Gait: Not tested. PSYCHIATRIC: She has a flat affect Objective Labs 12/18/24 08:37 12/18/24 08:37 Labs: Laboratory Results - last 24 hr 12/18/24 08:37 WBC 7.2 RBC 4.40 Hgb 13.2 Hct 39.5 MCV 90 MCH 30.0 MCHC 33.4 RDW Std Deviation 43.1 Plt Count 462 H D Neut % (Auto) 63 Lymph % (Auto) 26 [place] % (Auto) 8 Eos % (Auto) 2 Baso % (Auto) 1 Neut # (Auto) 4.5 Lymph # (Auto) 1.9 [place] # (Auto) 0.6 Eos # (Auto) 0.2 Baso # (Auto) 0.1 Immature Gran # (Auto) 0.02 H Absolute Nucleated RBC 0.00 Immature Gran % 0 Nucleated RBC % 0 Sodium 139 Potassium 3.6 D Chloride 104 Carbon Dioxide 25.3 Anion Gap 10 BUN 19 Creatinine 1.1 Estim Creat Clear Calc 34.7 L eGFR 51 L BUN/Creatinine Ratio 17 Glucose 156 H Calculated Osmolality 282 Calcium 10.1 Corrected Calcium 10.4 H Total Bilirubin 0.3 AST 29 ALT 30 Alkaline Phosphatase 102 Total Protein 6.7 Albumin 3.6 Globulin 3.1 Albumin/Globulin Ratio 1.2 ABG Interpretation ABG results: 12/13/24 12/14/24 12/15/24 20:39 05:34 03:39 ABG pH 7.53 H 7.42 D 7.51 H ABG pCO2 33 39 33 ABG pO2 468 H 235 H D 102 D ABG HCO3 27 H 26 27 H ABG O2 Saturation 101 H 101 H 99 H ABG Base Excess 5 H 1 4 H Assessment & Plan Assessment and plan (1) Acute right MCA stroke: Status: Acute Assessment and plan: Recurrent event Continue with range of motion exercises on the left upper and lower extremities. MRI brain showed findings consistent with large infarct in the right frontal and parietal area.(Bright signal on DWI indicating restricted diffusion and low signal on the ADC map confirming restricted diffusion) In my opinion it is not suggestive of brain mets Will hold off on antiplatelet/anticoagulant therapy for at least 3 more months because of the recent intracerebral hemorrhage event. (2) Status epilepticus: Status: Resolved Assessment and plan: No seizures reported after admission, continue with Keppra. EEG did not show any epileptiform discharges. (3) Acute UTI: Status: Acute Assessment and plan: Continue with antibiotics, noted switched from ceftriaxone to Zosyn
[2024-12-19] VITALS (12 sets, daily range): BP systolic 105–152; BP diastolic 57–104; PULSE 77–94; RESP 14–97; TEMP 36.2–36.8; O2SAT 95–97
[2024-12-19] MEDS: LEVOTHYROXINE SODIUM 112 MCG TABLET NG (05:25)
[2024-12-19 09:38] LABS: Basophils # (Auto) 0.1 Thou/mm3 (0.0-0.2); Basophils % (Auto) 2 % (0-2.5); Eosinophils # (Auto) 0.2 Thou/mm3 (0.0-0.5); Eosinophils % (Auto) 3 % (0-10); Hemoglobin 13.6 g/dL (12.0-16.0); Immature Granulocytes % (Auto) 0 % (0-0); Immature Granulocytes Auto 0.01 Thou/mm3 (0.00-0.00); Lymphocytes # (Auto) 1.8 Thou/mm3 (1.0-4.8); Lymphocytes % (Auto) 29 % (10-50); Mean Corpuscular HGB Conc 33.2 g/dl (31.0-37.0); Mean Corpuscular Hemoglobin 29.8 pg (25.0-35.0); Mean Corpuscular Volume 90 fL (80-100); Monocytes # (Auto) 0.5 Thou/mm3 (0.0-0.8); Monocytes % (Auto) 8 % (0-12); Neutrophils # (Auto) 3.6 Thou/mm3 (1.8-7.7); Neutrophils % (Auto) 59 % (37-80); Nucleated Red Blood Cell % 0 /100 WBC (0); Platelet Count 433 Thou/mm3 (140-440); Red Blood Count 4.56 Miln/mm3 (4.00-5.20); White Blood Count 6.1 Thou/mm3 (3.6-11.0)
[2024-12-19 09:52] LABS: Alanine Aminotransferase 20 U/L (10-49); Albumin, Serum 3.7 gm/dL (3.4-4.8); Albumin/Globulin Ratio 1.2 (1.2-2.2); Alkaline Phosphatase 94 U/L (46-116); Anion Gap 8 (7-16); Aspartate Amino Transferase 27 U/L (0-34); BUN/Creatinine Ratio 20 Ratio (12-20); Bilirubin,Total 0.3 mg/dL (0.3-1.2); Blood Urea Nitrogen 20 mg/dL (9-23); Calcium 10.4 mg/dL (8.3-10.6); Calcium (Corrected) 10.6 mg/dL (8.5-10.1); Carbon Dioxide 28.2 mMol/L (20.0-31.0); Chloride 105 mMol/L (98-107); Estimated Creatinine Clearance 38.1 mL/min (>60); Globulin 3.2 gm/dL (2.3-3.5); Glucose 92 mg/dL (74-106); Osmolality,Calculated 283 (275-295); Potassium 3.9 mMol/L (3.4-5.1); Sodium 141 mMol/L (136-145); Total Protein 6.9 gm/dL (5.7-8.2); eGFR 57 See Note
[2024-12-19] MEDS: levETIRAcetam INJ 100 MG/ML VIAL 5ML 1000 MG IVP ×2 (11:03→21:18)
[2024-12-19] MEDS: HEPARIN SOD INJ 5000 UNIT/ML VIAL SC ×2 (11:04→21:19)
[2024-12-19] MEDS: CIPROFLOXACIN HCL 250 MG TABLET 500 MG PO (11:05)
[2024-12-19] MEDS: METOPROLOL TARTRATE 25 MG TABLET 50 MG PO ×2 (11:05→21:24)
[2024-12-19] MEDS: AMIODARONE HCL 200 MG TABLET GT (11:05)
[2024-12-19] MEDS: NIFEdipine XL 30 MG TABCR 60 MG PO (11:06)
--- NOTE | 2024-12-19 12:11 | VVPN_ITS ---
Telemedicine visit statement This visit was conducted with the use of phone obtained on 12/19/24 at 1211. Documentation for date of: 12/19/24 Subjective Subjective Interval history: Patient is in MedSurg. No new symptoms reported. Tolerating oral diet well. Virtual exam Vital Signs Temp Pulse Resp BP Pulse Ox O2 Del Method O2 Flow Rate 98.3 F 91 14 105/67 97 Room Air 4 12/19/24 12:00 12/19/24 12:00 12/19/24 12:00 12/19/24 12:00 12/19/24 12:00 12/19/24 12:00 12/18/24 03:54 FiO2 21 12/18/24 03:54 Objective Labs 12/19/24 08:42 12/19/24 08:42 Labs: Laboratory Results - last 24 hr 12/19/24 08:42 WBC 6.1 RBC 4.56 Hgb 13.6 Hct 41.0 MCV 90 MCH 29.8 MCHC 33.2 RDW Std Deviation 43.0 Plt Count 433 Neut % (Auto) 59 Lymph % (Auto) 29 [place] % (Auto) 8 Eos % (Auto) 3 Baso % (Auto) 2 Neut # (Auto) 3.6 Lymph # (Auto) 1.8 [place] # (Auto) 0.5 Eos # (Auto) 0.2 Baso # (Auto) 0.1 Immature Gran # (Auto) 0.01 H Absolute Nucleated RBC 0.00 Immature Gran % 0 Nucleated RBC % 0 Sodium 141 Potassium 3.9 Chloride 105 Carbon Dioxide 28.2 Anion Gap 8 BUN 20 Creatinine 1.0 Estim Creat Clear Calc 38.1 L eGFR 57 L BUN/Creatinine Ratio 20 Glucose 92 D Calculated Osmolality 283 Calcium 10.4 Corrected Calcium 10.6 H Total Bilirubin 0.3 AST 27 ALT 20 Alkaline Phosphatase 94 Total Protein 6.9 Albumin 3.7 Globulin 3.2 Albumin/Globulin Ratio 1.2 ABG Interpretation ABG results: 12/13/24 12/14/24 12/15/24 20:39 05:34 03:39 ABG pH 7.53 H 7.42 D 7.51 H ABG pCO2 33 39 33 ABG pO2 468 H 235 H D 102 D ABG HCO3 27 H 26 27 H ABG O2 Saturation 101 H 101 H 99 H ABG Base Excess 5 H 1 4 H Assessment & Plan Assessment 1) Acute right MCA stroke: Discussed extubated, GCS: 14, back to baseline, continue to be hemiplegic on the left Continue with range of motion exercises on the left upper and lower extremities. MRI brain showed findings consistent with large infarct in the right frontal and parietal area.(Bright signal on DWI indicating restricted diffusion and low signal on the ADC map confirming restricted diffusion) In my opinion it is not suggestive of brain mets (Mets typically shows less diffusion restriction that appears hypointense on DWI with a relatively higher ADC value). Follow-up with previous imaging data on CD from [place] Will hold off on antiplatelet/anticoagulant therapy for at least 3 months because of the recent intracerebral hemorrhage event. (2) Status epilepticus: resolved No seizures reported after admission, continue with Keppra. (3) Acute UTI: Continue with antibiotics, Follow contact precaution for Pseudomonas in the sputum 2 more days of antibiotics and then discharged to [facility].
[2024-12-19] MEDS: ACETAMINOPHEN 325 MG TABLET 650 MG PO (13:16)
--- NOTE | 2024-12-19 14:16 | ESPR_ITS ---
<Statement entered by Jay Lozada MD - 12/20/24 06:28> I discussed with and supervised the science intern physician involved in the care of this patient. Patient assessment and plan was discussed with entire medicine team, including my attending. I agree with the assessment and plan as documented by science intern doctor. Patient care was discussed with my attending physician Dr. Lele Lozada, PGY-2 Documentation for date of: 12/19/24 Subjective Subjective Interval history: 12/19/2024: No acute overnight events to report. Unable to know exactly how long the patient needs to remain under isolation for the Pseudomonas regarding SNF placement. Unable to reach infection control at this time to ask whether isolation time begins at the time of treatment or at the time that the sputum cultures resulted. Will continue to monitor for any acute changes. Exam Vital Signs Temp Pulse Resp BP Pulse Ox O2 Del Method O2 Flow Rate 98.3 F 91 14 105/67 97 Room Air 4 12/19/24 12:00 12/19/24 12:00 12/19/24 12:00 12/19/24 12:00 12/19/24 12:00 12/19/24 12:00 12/18/24 03:54 FiO2 21 12/18/24 03:54 Narrative Exam General: Elderly female, in no acute distress on NC. Alert and awake. Able to follow some commands. HEENT: NC/AT, NT, PERRLA, MMM Lungs: CTAB, no wheezing, rhonchi CVS: S1S2, RRR, no murmurs or rubs heard ABD: soft, non-distended, non-tender, presence of PEG tube noted : G-tube in place, intact, and no signs of erythema or exudate EXT: radial pulses 2+ BL, DP pulses 2 + BL, Neuro: GCS 12. Patient unable to state her name at this time. Left facial droop and left hemiparesis. 3/5 motor strength in RUE/RLE. Objective Labs 12/19/24 08:42 12/19/24 08:42 Labs: Laboratory Results - last 24 hr 12/19/24 08:42 WBC 6.1 RBC 4.56 Hgb 13.6 Hct 41.0 MCV 90 MCH 29.8 MCHC 33.2 RDW Std Deviation 43.0 Plt Count 433 Neut % (Auto) 59 Lymph % (Auto) 29 [place] % (Auto) 8 Eos % (Auto) 3 Baso % (Auto) 2 Neut # (Auto) 3.6 Lymph # (Auto) 1.8 [place] # (Auto) 0.5 Eos # (Auto) 0.2 Baso # (Auto) 0.1 Immature Gran # (Auto) 0.01 H Absolute Nucleated RBC 0.00 Immature Gran % 0 Nucleated RBC % 0 Sodium 141 Potassium 3.9 Chloride 105 Carbon Dioxide 28.2 Anion Gap 8 BUN 20 Creatinine 1.0 Estim Creat Clear Calc 38.1 L eGFR 57 L BUN/Creatinine Ratio 20 Glucose 92 D Calculated Osmolality 283 Calcium 10.4 Corrected Calcium 10.6 H Total Bilirubin 0.3 AST 27 ALT 20 Alkaline Phosphatase 94 Total Protein 6.9 Albumin 3.7 Globulin 3.2 Albumin/Globulin Ratio 1.2 ABG Interpretation ABG results: 12/13/24 12/14/24 12/15/24 20:39 05:34 03:39 ABG pH 7.53 H 7.42 D 7.51 H ABG pCO2 33 39 33 ABG pO2 468 H 235 H D 102 D ABG HCO3 27 H 26 27 H ABG O2 Saturation 101 H 101 H 99 H ABG Base Excess 5 H 1 4 H Quality Measures Quality Measures none (hx of hemorrhagic conversion) Advance care planning discussed with:: child Assessment & Plan Assessment Current Active Medications: Generic Name Dose Route Start Last Admin Trade Name Freq PRN Reason Stop Dose Admin Acetaminophen 650 mg 12/16/24 15:42 Acetaminophen Supp 650 Mg Supp [place] 01/12/25 23:56 Q6HR PRN FEVER>101.5 Acetaminophen 650 mg 12/19/24 11:18 12/19/24 13:16 Acetaminophen 325 Mg Tablet PO 01/15/25 15:39 650 mg Q6HR PRN Administration Fever >100.4 and Pain 1-3 Amiodarone HCl 200 mg 12/19/24 11:18 Amiodarone Hcl 200 Mg Tablet PO 01/16/25 20:59 BID JOHNY Atorvastatin Calcium 40 mg 12/18/24 21:00 12/18/24 20:47 Atorvastatin Calcium 20 Mg Tablet PO 01/17/25 20:59 40 mg HS JOHNY Administration Ciprofloxacin 500 mg 12/17/24 10:30 12/19/24 11:05 Ciprofloxacin Hcl 250 Mg Tablet PO 12/24/24 10:29 500 mg QDAY JOHNY Administration Protocol Heparin Sodium (Porcine) 5,000 unit 12/14/24 09:00 12/19/24 11:04 Heparin Sod Inj 5000 Unit/Ml Vial SC 12/28/24 08:59 5,000 unit Q12HR JOHNY Administration Levetiracetam 1,000 mg 12/14/24 09:00 12/19/24 11:03 Levetiracetam Inj 100 Mg/Ml Vial 5ml IVP 01/13/25 08:59 1,000 mg Q12HR JOHNY Administration Levothyroxine Sodium 112 mcg 12/19/24 11:18 Levothyroxine Sodium 112 Mcg Tablet PO 01/14/25 05:59 ACBR JOHNY Metoprolol Tartrate 50 mg 12/17/24 10:20 12/19/24 11:05 Metoprolol Tartrate 25 Mg Tablet PO 01/16/25 10:19 50 mg BID JOHNY Administration Nifedipine 60 mg 12/17/24 09:00 12/19/24 11:06 Nifedipine Xl 30 Mg Tabcr PO 01/16/25 08:59 60 mg QDAY JOHNY Administration Sennosides 8.8 mg 12/19/24 11:10 Sennosides Syrup 8.8 Mg/5 Ml Udc PO 01/16/25 08:59 QDAY JOHNY Protocol Plan 79-year-old female with past medical history of hypertension, hyperlipidemia, hypothyroidism, paroxysmal A-fib not on anticoagulation, and recent stroke s/p TPA in 10/27 and hemorraghic conversion with left-sided residuals in 11/28 who presented to the ED from SNF due to status epilepticus/seizures and admitted to ICU for further management; downgraded upon successful weaning off sedation and back to baseline. #Acute Encephalopathy secondary to New Onset Seizure #Status epilepticus #History of Stroke w/ Hemorrhagic conversion (11/2024) #Suspicion for Cerebral Mass, unlikely #Acute Respiratory Failure, resolved - extubated Patient intubated for airway protection. Patient extubated, 12/15/24 and is awake and alert. Patient presented to the ED after suffering a new onset seizure. Per family, sezure was >5 mins concerning for status epilepticus. Patient was administered Versed 4 mg by EMS in the field. Patient was subsequently intubated in the ED and started on Fentanyl and Versed gtt. Sedation has since been discontinued with no seizure activity noted thus far. MRI showed enhancing lesions in R frontal and parietal lobe. D/t findings on MRI, will request hospital records from patient's previous hospitalizations at [facility]. Given x1 dose of Decadron in ICU 2/2 MRI findings being suspicious for mass Neurology consulted, appreciate recommendations EEG shows diffuse slowing synonymous with metabolic/degenerative/vascular encephalopathy Plan: Per neurology, MRI findings are more likely to be 2/2 to ischemic stroke vs. true cerebral mass/metastasis based off characteristic noted in MRI Continue Keppra 1000mg BID Continue atorvastatin 40mg HS #Acute thrombus in the superficial cephalic vein As noted by the venous doppler study Neurology consulted regarding anticoagulation; requesting CT Head w/o contrast CT Head shows: Stable focal areas of edema in the right frontal lobe and right parietal lobe and stable areas of possible small hemorrhage in both locations Plan: Cardiology recommends no anticoagulation; thrombus will degrade on its own #Atrial Fibrillation, paroxysmal Patient has history of PAF No anticoagulation due to recent history of hemorrhagic conversion. Patient currently rate and rhythm controlled, however noted to go in and out of atrial fibrillation. Plan: Continue Metorpolol tartrate 50mg bid Continue Amiodarone 200mg gt bid Cardiology recommended, appreciate recommendations #UTI #Pseudomonas in sputum #Leuckocytosis Urine analysis: Plus protein, 2+ blood, 3+ leukocyte esterase, 2+ bacteriuria Blood cultures (-) over 48 hours Urine cultures (+) for Citrobacter farmerii Patient has Pseudomonas growing in sputum culture; adequate coverage with Zosyn and Cipro for 2 days Plan: Continue Cipro 500mg qday from Zosyn Will require isolation for additional 2 days #Hypertension On home nifedipine ER 60mg qday Patient hypertensive on 12/17 with elevated diastolic blood pressure Plan: Continue home medication #G-tube dependent Continue tube feeds tonight at low rate Patient is able to tolerate a pureed diet during the day and has tube feeds at night Plan: Cardiac, Dysphagia I (pureed) #CKD stage 3A #Electrolyte abnormalities Patient kidney function stable Cr stable Plan: Replete lytes as needed Continue to monitor #Hypothyroidism TSH: 59.24, free T4 1.02 Plan: Continue Levothyroxine to 112 mcg ACBR Follow-up outpatient with thyroid labs; likely 2/2 to acutely ill status affecting TSH levels Hospital Managment: Lines: PIV Diet: Cardiac, dysphagia I (pur?ed) Bowel: Senna GI prophylaxis: Not needed DVT prophylaxis: Heparin subcu Dispo: Pending 3-day isolation for Pseudomonas Code: Full Patient seen and examined with attending Dr. Deluca and senior resident Dr. Neville Yates, PGY-1 Attending Provider Attestation/Addendum I attest that I was physically present for the evaluation, physical examination, lab and imaging review of the patient with the residents. I discussed the case with the residents and agree with the findings and plans of care as documented above. At bedside, patient continues to be stable. Family at bedside, updated about patient's condition and further management plans and details. Awaiting completion of 5 days on antibiotics sensitive to sputum Pseudomonas for placement. Fabio Deluca MD
--- NOTE | 2024-12-19 15:51 | PC.SS ---
Spoke with Staci Malcolm, confirmed no isolation beds avaiable and likely none this weekend; SS will follow up throughout weekend see if any changes; medical team made aware
--- NOTE | 2024-12-19 16:40 | ESPR_ITS ---
<Statement entered by Junior Lockhart MD - 12/19/24 18:01> The patient seen cardiology rounds patient is sleepy when remained around but she appears to be quite stable not having chest pain shortness but she is maintaining sinus rhythm so far while remained stable apparently waiting for the Pseudomonas bacteria to clear before transferring to intermediate facility. Agree with the treatment plan recommendation as documented by PGY 1 Dr. Clifford Bustos. Documentation for date of: 12/19/24 Subjective Subjective Interval history: No overnight events. Patient seen and examined at bedside, resting comfortably. No new cardiac symptoms. Currently on contact ICU precautions due to sputum culture positive for Pseudomonas. Heart rate sinus rhythm. Continue current treatment for A-fib. Exam Vital Signs Temp Pulse Resp BP Pulse Ox O2 Del Method O2 Flow Rate 98.3 F 91 14 105/67 97 Room Air 4 12/19/24 12:00 12/19/24 12:00 12/19/24 12:00 12/19/24 12:00 12/19/24 12:00 12/19/24 12:00 12/18/24 03:54 FiO2 21 12/18/24 03:54 Narrative Exam PE: Gen: Well-developed and well-nourished. Elderly. HEENT: NCAT, PERRLA, EOMI, MMM, anicteric conjunctivae. Left facial droop. CVS: normal S1 and S2. RRR. No M/R/G. Resp: CTA B/L. No rhonchi, rales, crackles or wheezing. Abd: soft, non-tender, non-distended. MSK: Good ROM in RUE & RLE. No rash. 2+ pitting edema LUE. Trace edema LLE. Neuro: CN II-XII grossly intact. Strength 5/5 in RUE & RLE. Alert and oriented x3. Left sided hemiplegia. Psych: appropriate mood and affect. Objective Labs 12/19/24 08:42 12/19/24 08:42 Labs: Laboratory Results - last 24 hr 12/19/24 08:42 WBC 6.1 RBC 4.56 Hgb 13.6 Hct 41.0 MCV 90 MCH 29.8 MCHC 33.2 RDW Std Deviation 43.0 Plt Count 433 Neut % (Auto) 59 Lymph % (Auto) 29 [place] % (Auto) 8 Eos % (Auto) 3 Baso % (Auto) 2 Neut # (Auto) 3.6 Lymph # (Auto) 1.8 [place] # (Auto) 0.5 Eos # (Auto) 0.2 Baso # (Auto) 0.1 Immature Gran # (Auto) 0.01 H Absolute Nucleated RBC 0.00 Immature Gran % 0 Nucleated RBC % 0 Sodium 141 Potassium 3.9 Chloride 105 Carbon Dioxide 28.2 Anion Gap 8 BUN 20 Creatinine 1.0 Estim Creat Clear Calc 38.1 L eGFR 57 L BUN/Creatinine Ratio 20 Glucose 92 D Calculated Osmolality 283 Calcium 10.4 Corrected Calcium 10.6 H Total Bilirubin 0.3 AST 27 ALT 20 Alkaline Phosphatase 94 Total Protein 6.9 Albumin 3.7 Globulin 3.2 Albumin/Globulin Ratio 1.2 ABG Interpretation ABG results: 12/13/24 12/14/24 12/15/24 20:39 05:34 03:39 ABG pH 7.53 H 7.42 D 7.51 H ABG pCO2 33 39 33 ABG pO2 468 H 235 H D 102 D ABG HCO3 27 H 26 27 H ABG O2 Saturation 101 H 101 H 99 H ABG Base Excess 5 H 1 4 H Quality Measures Quality Measures none (hx of hemorrhagic conversion) Advance care planning discussed with:: patient Assessment & Plan Assessment Current Active Medications: Generic Name Dose Route Start Last Admin Trade Name Freq PRN Reason Stop Dose Admin Acetaminophen 650 mg 12/16/24 15:42 Acetaminophen Supp 650 Mg Supp NE 01/12/25 23:56 Q6HR PRN FEVER>101.5 Acetaminophen 650 mg 12/19/24 11:18 12/19/24 13:16 Acetaminophen 325 Mg Tablet PO 01/15/25 15:39 650 mg Q6HR PRN Administration Fever >100.4 and Pain 1-3 Amiodarone HCl 200 mg 12/19/24 11:18 Amiodarone Hcl 200 Mg Tablet PO 01/16/25 20:59 BID JOHNY Atorvastatin Calcium 40 mg 12/18/24 21:00 12/18/24 20:47 Atorvastatin Calcium 20 Mg Tablet PO 01/17/25 20:59 40 mg HS JOHNY Administration Ciprofloxacin 500 mg 12/17/24 10:30 12/19/24 11:05 Ciprofloxacin Hcl 250 Mg Tablet PO 12/24/24 10:29 500 mg QDAY JOHNY Administration Protocol Heparin Sodium (Porcine) 5,000 unit 12/14/24 09:00 12/19/24 11:04 Heparin Sod Inj 5000 Unit/Ml Vial SC 12/28/24 08:59 5,000 unit Q12HR JOHNY Administration Levetiracetam 1,000 mg 12/14/24 09:00 12/19/24 11:03 Levetiracetam Inj 100 Mg/Ml Vial 5ml IVP 01/13/25 08:59 1,000 mg Q12HR JOHNY Administration Levothyroxine Sodium 112 mcg 12/19/24 11:18 Levothyroxine Sodium 112 Mcg Tablet PO 01/14/25 05:59 ACBR JOHNY Metoprolol Tartrate 50 mg 12/17/24 10:20 12/19/24 11:05 Metoprolol Tartrate 25 Mg Tablet PO 01/16/25 10:19 50 mg BID JOHNY Administration Nifedipine 60 mg 12/17/24 09:00 12/19/24 11:06 Nifedipine Xl 30 Mg Tabcr PO 01/16/25 08:59 60 mg QDAY JOHNY Administration Sennosides 8.8 mg 12/19/24 11:10 Sennosides Syrup 8.8 Mg/5 Ml Udc PO 01/16/25 08:59 QDAY JOHNY Protocol Plan 79-year-old female with past medical history of hypertension, hyperlipidemia, hypothyroidism, paroxysmal A-fib not on anticoagulation, and recent stroke s/p TPA in 10/27 and hemorraghic conversion with left-sided residuals in 11/28 who presented to the ED from SNF due to status epilepticus/seizures and admitted to ICU for further management; downgraded upon successful weaning off sedation and back to baseline. Cardiology consulted for management of paroxysmal afib. #Atrial Fibrillation, paroxysmal Patient has history of PAF, dignosed after stroke in 10/2024. No anticoagulation due to recent history of hemorrhagic conversion in November. Patient currently rate and rhythm controlled, however noted to go in and out of atrial fibrillation. Only taking atenolol 50 mg at home. Patient developed episode of afib overnight, was given amiodarone bolus and started on drip with rhythm control achieved. Remained rate controlled with 20 mg via G-tube. -Metoprolol tartrate 50mg twice daily -Amiodarone 200 mg by G-Tube BID -Telemetry -continue to hold anticoag in setting of recent hemorrhagic conversion of stroke. -follow up outpatient with cardiology #Acute Encephalopathy secondary to New Onset Seizure #Status epilepticus #History of Stroke w/ Hemorrhagic conversion (11/2024) #Suspicion for Cerebral Mass, unlikely #Acute Respiratory Failure, resolved - extubated #Acute thrombus in the superficial cephalic vein #UTI #Leuckocytosis #Hypertension #CKD stage 3A #Electrolyte abnormalities #Hypothyroidism Management as per primary team. DVT prophylaxis: Contraindicated GI prophylaxis: None Diet: Pureed Lines: PIV Code status: Full Code Plan of care discussed with attending Dr. Richy Franklin MD PGY-1
[2024-12-19] MEDS: ATORVASTATIN CALCIUM 20 MG TABLET 40 MG PO (21:17)
[2024-12-19] MEDS: AMIODARONE HCL 200 MG TABLET PO (21:17)
[2024-12-20] VITALS (14 sets, daily range): BP systolic 127–145; BP diastolic 78–89; PULSE 73–92; RESP 14–97; TEMP 36.1–36.6; O2SAT 95–98
[2024-12-20] MEDS: LEVOTHYROXINE SODIUM 112 MCG TABLET PO (05:43)
[2024-12-20] MEDS: NIFEdipine XL 30 MG TABCR 60 MG PO (09:45)
[2024-12-20] MEDS: METOPROLOL TARTRATE 25 MG TABLET 50 MG PO ×2 (09:50→20:36)
[2024-12-20] MEDS: AMIODARONE HCL 200 MG TABLET PO ×2 (09:51→20:35)
[2024-12-20] MEDS: CIPROFLOXACIN HCL 250 MG TABLET 500 MG PO (09:52)
[2024-12-20] MEDS: levETIRAcetam INJ 100 MG/ML VIAL 5ML 1000 MG IVP ×2 (09:52→20:36)
[2024-12-20] MEDS: HEPARIN SOD INJ 5000 UNIT/ML VIAL SC ×2 (09:53→20:38)
--- NOTE | 2024-12-20 13:26 | ESPR_ITS ---
<Statement entered by Jay Lozada MD - 12/21/24 07:04> I discussed with and supervised the recruitment intern physician involved in the care of this patient. Patient assessment and plan was discussed with entire medicine team, including my attending. I agree with the assessment and plan as documented by recruitment intern doctor. Patient care was discussed with my attending physician Dr. Sandrine Lozada, PGY-2 Documentation for date of: 12/20/24 Subjective Subjective Interval history: 12/20/2024: No acute overnight events to report. Unable to reach infection control at this time; however, the patient will have completed antibiotic course and will likely be discharged on 12/21 pending placement by psychosocial rehabilitation counselor. Exam Vital Signs Temp Pulse Resp BP Pulse Ox O2 Del Method O2 Flow Rate 97.1 F 85 19 145/80 H 98 Room Air 4 12/20/24 08:00 12/20/24 11:59 12/20/24 08:00 12/20/24 09:51 12/20/24 08:00 12/20/24 08:00 12/18/24 03:54 FiO2 21 12/18/24 03:54 Narrative Exam General: Elderly female, in no acute distress on NC. Alert and awake. Able to follow some commands. HEENT: NC/AT, NT, PERRLA, MMM Lungs: CTAB, no wheezing, rhonchi CVS: S1S2, RRR, no murmurs or rubs heard ABD: soft, non-distended, non-tender, presence of PEG tube noted : G-tube in place, intact, and no signs of erythema or exudate EXT: radial pulses 2+ BL, DP pulses 2 + BL, Neuro: GCS 12. Patient unable to state her name at this time. Left facial droop and left hemiparesis. 3/5 motor strength in RUE/RLE. Objective Labs 12/19/24 08:42 12/19/24 08:42 ABG Interpretation ABG results: 12/13/24 12/14/24 12/15/24 20:39 05:34 03:39 ABG pH 7.53 H 7.42 D 7.51 H ABG pCO2 33 39 33 ABG pO2 468 H 235 H D 102 D ABG HCO3 27 H 26 27 H ABG O2 Saturation 101 H 101 H 99 H ABG Base Excess 5 H 1 4 H Quality Measures Quality Measures none (hx of hemorrhagic conversion) Advance care planning discussed with:: child Assessment & Plan Assessment Current Active Medications: Generic Name Dose Route Start Last Admin Trade Name Freq PRN Reason Stop Dose Admin Acetaminophen 650 mg 12/16/24 15:42 Acetaminophen Supp 650 Mg Supp [place] 01/12/25 23:56 Q6HR PRN FEVER>101.5 Acetaminophen 650 mg 12/19/24 11:18 12/19/24 13:16 Acetaminophen 325 Mg Tablet PO 01/15/25 15:39 650 mg Q6HR PRN Administration Fever >100.4 and Pain 1-3 Amiodarone HCl 200 mg 12/19/24 11:18 12/20/24 09:51 Amiodarone Hcl 200 Mg Tablet PO 01/16/25 20:59 200 mg BID JOHNY Administration Atorvastatin Calcium 40 mg 12/18/24 21:00 12/19/24 21:17 Atorvastatin Calcium 20 Mg Tablet PO 01/17/25 20:59 40 mg HS JOHNY Administration Ciprofloxacin 500 mg 12/17/24 10:30 12/20/24 09:52 Ciprofloxacin Hcl 250 Mg Tablet PO 12/24/24 10:29 500 mg QDAY JOHNY Administration Protocol Heparin Sodium (Porcine) 5,000 unit 12/14/24 09:00 12/20/24 09:53 Heparin Sod Inj 5000 Unit/Ml Vial SC 12/28/24 08:59 5,000 unit Q12HR JOHNY Administration Levetiracetam 1,000 mg 12/14/24 09:00 12/20/24 09:52 Levetiracetam Inj 100 Mg/Ml Vial 5ml IVP 01/13/25 08:59 1,000 mg Q12HR JOHNY Administration Levothyroxine Sodium 112 mcg 12/19/24 11:18 12/20/24 05:43 Levothyroxine Sodium 112 Mcg Tablet PO 01/14/25 05:59 112 mcg ACBR JOHNY Administration Metoprolol Tartrate 50 mg 12/17/24 10:20 12/20/24 09:50 Metoprolol Tartrate 25 Mg Tablet PO 01/16/25 10:19 50 mg BID JOHNY Administration Nifedipine 60 mg 12/17/24 09:00 12/20/24 09:45 Nifedipine Xl 30 Mg Tabcr PO 01/16/25 08:59 60 mg QDAY JOHNY Administration Sennosides 8.8 mg 12/19/24 11:10 12/20/24 10:00 Sennosides Syrup 8.8 Mg/5 Ml Udc PO 01/16/25 08:59 Not Given QDAY [facility] Protocol Plan 79-year-old female with past medical history of hypertension, hyperlipidemia, hypothyroidism, paroxysmal A-fib not on anticoagulation, and recent stroke s/p TPA in 10/27 and hemorraghic conversion with left-sided residuals in 11/28 who presented to the ED from SNF due to status epilepticus/seizures and admitted to ICU for further management; downgraded upon successful weaning off sedation and back to baseline. #Acute Encephalopathy secondary to New Onset Seizure #Status epilepticus #History of Stroke w/ Hemorrhagic conversion (11/2024) #Suspicion for Cerebral Mass, unlikely #Acute Respiratory Failure, resolved - extubated Patient intubated for airway protection. Patient extubated, 12/15/24 and is awake and alert. Patient presented to the ED after suffering a new onset seizure. Per family, sezure was >5 mins concerning for status epilepticus. Patient was administered Versed 4 mg by EMS in the field. Patient was subsequently intubated in the ED and started on Fentanyl and Versed gtt. Sedation has since been discontinued with no seizure activity noted thus far. MRI showed enhancing lesions in R frontal and parietal lobe. D/t findings on MRI, will request hospital records from patient's previous hospitalizations at [facility]. Given x1 dose of Decadron in ICU 2/2 MRI findings being suspicious for mass Neurology consulted, appreciate recommendations EEG shows diffuse slowing synonymous with metabolic/degenerative/vascular encephalopathy Plan: Per neurology, MRI findings are more likely to be 2/2 to ischemic stroke vs. true cerebral mass/metastasis based off characteristic noted in MRI Continue Keppra 1000mg BID Continue atorvastatin 40mg HS #Acute thrombus in the superficial cephalic vein As noted by the venous doppler study Neurology consulted regarding anticoagulation; requesting CT Head w/o contrast CT Head shows: Stable focal areas of edema in the right frontal lobe and right parietal lobe and stable areas of possible small hemorrhage in both locations Plan: Cardiology recommends no anticoagulation; thrombus will degrade on its own #Atrial Fibrillation, paroxysmal Patient has history of PAF No anticoagulation due to recent history of hemorrhagic conversion. Patient currently rate and rhythm controlled, however noted to go in and out of atrial fibrillation. Plan: Continue Metorpolol tartrate 50mg bid Continue Amiodarone 200mg gt bid Cardiology recommended, appreciate recommendations #UTI #Pseudomonas in sputum #Leuckocytosis Urine analysis: Plus protein, 2+ blood, 3+ leukocyte esterase, 2+ bacteriuria Blood cultures (-) over 48 hours Urine cultures (+) for Citrobacter farmerii Patient has Pseudomonas growing in sputum culture; adequate coverage with Zosyn and Cipro for 2 days Plan: Continue Cipro 500mg qday from Zosyn Will require isolation for additional day #Hypertension On home nifedipine ER 60mg qday Patient hypertensive on 12/17 with elevated diastolic blood pressure Plan: Continue home medication #G-tube dependent Continue tube feeds tonight at low rate Patient is able to tolerate a pureed diet during the day and has tube feeds at night Plan: Cardiac, Dysphagia I (pureed) #CKD stage 3A #Electrolyte abnormalities Patient kidney function stable Cr stable Plan: Replete lytes as needed Continue to monitor #Hypothyroidism TSH: 59.24, free T4 1.02 Plan: Continue Levothyroxine to 112 mcg ACBR Follow-up outpatient with thyroid labs; likely 2/2 to acutely ill status affecting TSH levels Hospital Managment: Lines: PIV Diet: Cardiac, dysphagia I (pur?ed) Bowel: Senna GI prophylaxis: Not needed DVT prophylaxis: Heparin subcu Dispo: Pending isolation for Pseudomonas Code: Full Patient seen and examined with attending Dr. Deluca and senior resident Dr. Neville Yates, PGY-1 Attending Provider Attestation/Addendum I attest that I was physically present for the evaluation, physical examination, lab and imaging review of the patient with the residents. I discussed the case with the residents and agree with the findings and plans of care as documented above. At bedside, patient continues to be comfortable. Awake and able to follow commands. Family at bedside. Vitals and lab results continue to be stable. Continues to be on isolation for Pseudomonas. Fabio Deluca MD
[2024-12-20] MEDS: ATORVASTATIN CALCIUM 20 MG TABLET 40 MG PO (20:36)
--- NOTE | 2024-12-20 20:52 | ESPR_ITS ---
RE: ANDRE AWAN : 1945 DATE OF SERVICE: 12/20/2024 Andre Awan was admitted to the hospital with recent history of stroke, hemorrhagic transformation, though there is a slight amount of hemorrhage. Anticoagulation is deferred. The patient has remained in sinus rhythm with amiodarone, which appears to be doing well. She is clinically about the same. Does not complain of shortness of shortness of breath or chest pain. Awaiting rehabilitation. OBJECTIVE: Vital Signs: Blood pressure 130/80, pulse 81. Neck: Supple. No JVD. Lungs: Clear. Heart: Heart sounds regular. No gallops. Abdomen: Thin and soft. Extremities: No edema. ASSESSMENT: 1. Paroxysmal atrial fibrillation with history of stroke with hemorrhagic transformation. 2. Atrial fibrillation, back in sinus rhythm. 3. Respiratory failure improved. 4. Hypertension, stable. 5. Chronic kidney disease stage III, stable. RECOMMENDATIONS: Continued medical management. We will monitor the patient closely for any further episodes of AFib. The patient is receiving amiodarone 200 mg twice daily, maintaining sinus rhythm, which will be continued. DT: 20:38:06 TT: 20:51:00 Ref: [id number] - TID: [id number]
--- NOTE | 2024-12-20 22:45 | VVPN_ITS ---
Telemedicine visit statement This visit was conducted with the use of interactive audio and video telecommunications system that permits real time communication between the patient and the provider. Patient's verbal consent for virtual visit was obtained on 12/20/24 at 2245. Documentation for date of: 12/20/24 Subjective Subjective Interval history: Patient is in MedSur. No new symptoms reported. Continues to have left dense hemiplegia, tolerating oral diet well. Virtual exam Vital Signs Temp Pulse Resp BP Pulse Ox O2 Del Method O2 Flow Rate 96.9 F 81 18 137/80 H 97 Room Air 4 12/20/24 20:00 12/20/24 20:36 12/20/24 20:00 12/20/24 20:36 12/20/24 20:00 12/20/24 20:00 12/20/24 16:00 FiO2 21 12/20/24 16:00 Objective Labs 12/21/24 04:39 12/21/24 04:39 ABG Interpretation ABG results: 12/13/24 12/14/24 12/15/24 20:39 05:34 03:39 ABG pH 7.53 H 7.42 D 7.51 H ABG pCO2 33 39 33 ABG pO2 468 H 235 H D 102 D ABG HCO3 27 H 26 27 H ABG O2 Saturation 101 H 101 H 99 H ABG Base Excess 5 H 1 4 H Assessment & Plan Assessment 1) Acute right MCA stroke: Discussed extubated, GCS: 14, back to baseline, continue to be hemiplegic on the left Continue with range of motion exercises on the left upper and lower extremities. MRI brain showed findings consistent with large infarct in the right frontal and parietal area. In my opinion it is not suggestive of brain mets Will hold off on antiplatelet/anticoagulant therapy for at least 3 months because of the recent intracerebral hemorrhage event. Stable for discharge (2) Status epilepticus: resolved No seizures reported after admission, continue with Keppra. (3) Acute UTI: Treated with antibiotics, Going to be discharged to [place] [facility].
[2024-12-21] VITALS (9 sets, daily range): BP systolic 115–154; BP diastolic 54–82; PULSE 69–90; RESP 15–18; TEMP 36.1–36.5; O2SAT 95–97; BMI 24.6
[2024-12-21] MEDS: LEVOTHYROXINE SODIUM 112 MCG TABLET PO (06:10)
[2024-12-21 06:56] LABS: Basophils # (Auto) 0.1 Thou/mm3 (0.0-0.2); Basophils % (Auto) 1 % (0-2.5); Eosinophils # (Auto) 0.2 Thou/mm3 (0.0-0.5); Eosinophils % (Auto) 3 % (0-10); Hematocrit 42.8 % (36.0-46.0); Hemoglobin 14.1 g/dL (12.0-16.0); Immature Granulocytes % (Auto) 0 % (0-0); Immature Granulocytes Auto 0.02 Thou/mm3 (0.00-0.00); Lymphocytes # (Auto) 1.8 Thou/mm3 (1.0-4.8); Lymphocytes % (Auto) 25 % (10-50); Mean Corpuscular HGB Conc 32.9 g/dl (31.0-37.0); Mean Corpuscular Hemoglobin 29.5 pg (25.0-35.0); Mean Corpuscular Volume 90 fL (80-100); Monocytes # (Auto) 0.5 Thou/mm3 (0.0-0.8); Monocytes % (Auto) 8 % (0-12); Neutrophils # (Auto) 4.4 Thou/mm3 (1.8-7.7); Neutrophils % (Auto) 62 % (37-80); Nucleated Red Blood Cell % 0 /100 WBC (0); Platelet Count 390 Thou/mm3 (140-440); RDW Standard Deviation 42.5 fL (36.4-46.3); Red Blood Count 4.78 Miln/mm3 (4.00-5.20)
[2024-12-21 07:03] LABS: Alanine Aminotransferase 23 U/L (10-49); Albumin, Serum 3.6 gm/dL (3.4-4.8); Albumin/Globulin Ratio 1.1 (1.2-2.2); Alkaline Phosphatase 89 U/L (46-116); Anion Gap 9 (7-16); Aspartate Amino Transferase 32 U/L (0-34); BUN/Creatinine Ratio 20 Ratio (12-20); Bilirubin,Total 0.4 mg/dL (0.3-1.2); Blood Urea Nitrogen 18 mg/dL (9-23); Calcium 10.1 mg/dL (8.3-10.6); Calcium (Corrected) 10.4 mg/dL (8.5-10.1); Carbon Dioxide 28.1 mMol/L (20.0-31.0); Chloride 102 mMol/L (98-107); Creatinine (Component) 0.9 mg/dL (0.6-1.3); Estimated Creatinine Clearance 42.4 mL/min (>60); Globulin 3.3 gm/dL (2.3-3.5); Glucose 93 mg/dL (74-106); Osmolality,Calculated 279 (275-295); Potassium 3.5 mMol/L (3.4-5.1); Sodium 139 mMol/L (136-145); Total Protein 6.9 gm/dL (5.7-8.2); eGFR > 60 See Note
[2024-12-21] MEDS: CIPROFLOXACIN HCL 250 MG TABLET 500 MG PO (09:59)
[2024-12-21] MEDS: NIFEdipine XL 30 MG TABCR 60 MG PO (09:59)
[2024-12-21] MEDS: AMIODARONE HCL 200 MG TABLET PO ×2 (10:00→21:44)
[2024-12-21] MEDS: METOPROLOL TARTRATE 25 MG TABLET 50 MG PO ×2 (10:00→21:44)
[2024-12-21] MEDS: HEPARIN SOD INJ 5000 UNIT/ML VIAL SC ×2 (10:01→21:44)
[2024-12-21] MEDS: levETIRAcetam INJ 100 MG/ML VIAL 5ML 1000 MG IVP ×2 (10:16→21:43)
--- NOTE | 2024-12-21 11:55 | XR_ITS ---
Examination: Duplex scan of the upper extremity, unilateral left complete Date and time of exam: December 21, 2024 1241 hrs. Indications: Left arm swelling and pain this week Technique: Duplex scan of the extremity veins using B-mode/grayscale imaging and Doppler spectral analysis and color flow Attention is directed to internal echogenicity, compression and augmentation involving these veins, color flow assessment, spectral analysis Findings: Major deep venous structures in the extremity demonstrate normal course and caliber. There is no evidence of deep vein thrombosis. Normal color flow and spectral analysis Impression: Negative for DVT.. Positive for nonocclusive thrombus in the superficial cephalic vein
--- NOTE | 2024-12-21 12:03 | PC.SS ---
Addendum entered by Ame Reyes 12/21/24 18:55: LEEROY Emerson informed of appeal. IMM placed in patient's chart. uYn [facility] informed patient is NOT discharging and will be appealing with [facility]. During rounding hospitalist team stated patient is ready to discharge. US results were negative for DVT. SS met with Cat at bedside to confirm SNF choice, [facility] chosen. SS contactd Pura [facility] to confirm acceptance for today. Pura stated she no longer has female beds available. Only bed available for female is pending for another client. SS informed patient's daughter Cat bed with [facility] no longer available. Cat stated she would be appealing due to patient's swollen arm and elevated platelets (400s). IMM reviewed with Cat and patient at bedside, copy provided. Cat requested to know cost of additional night stay at [facility], SS unable to provide cost of additional stay. Cat stated she would like for bed to be held at [facility]. SS informed her there is no guarantee a bed will be available for tomorrow, SW will follow up. If bed in local SNFs not available, SS can extend search to out of area SNFs such as [place] or [place]. SS returned at bedside, Cat requested SS to return due to being on the phone and still trying to decide. SS reminded Cat patient is ready for discharge. Cat stated she was concerned with US results and did not want patient to discharge until results were read. SS informed Cat to meet at 1415 to review SNF choice [facility] or [facility]. [facility] Yun stated she can accept patient. SS informed patient's daughter Cat, Cat stated she and patient needed time to decide on SNF. Addendum entered by Ame Reyes 12/21/24 14:58: SS Faxed discharge summary and culture/sensitivity report to [phone] as requested by Yun [facility] for review. Pending patient's acceptance for today. Addendum entered by Ame Reyes 12/21/24 13:09: Patient's daughter Cat requesting to speak to SS. She stated patient did not want to return to [facility]. Patient's daughter stated she and her mother were still deciding on SNF. They prefer [facility]. SS to follow up with accpeting SNFs at 1400, per Cat's request. Original Note: Per RN Idania, patient's daughter expressing concern with patient's arm. A STAT US has been ordered by hospitalist team. Discharge pending on US results. contacted [facility] to provide update; [facility] stated they have bed available if patient does not require isolation. Rounding note: Per hospitalist team, patient may discharge today. Isolation is no longer required for patient.
[2024-12-21] MEDS: ACETAMINOPHEN 325 MG TABLET 650 MG PO (14:12)
--- NOTE | 2024-12-21 14:18 | ESDS_ITS ---
Planned Discharge Date 12/21/24 DS: Providers Provider Date of admission: 12/13/24 23:57 Primary care physician: Cayden Little MD Admitting Provider: Richard Jay MD Attending Provider on Admission: Shelly Duran MD Consults: 12/13/24 23:48 Consult to Neurology / Tele-Neurology Stat Comment: New onset seizures Consulting Provider: Charles Rolon 12/16/24 09:08 Referral Physical Therapy Routine Comment: Physician Instructions: Referral Speech Therapy Routine Comment: 12/17/24 10:16 Consult to Cardiology Routine Comment: Consulting Provider: Junior Lockhart Instructions: possible afib Attending Provider on DC: Jay Lozada MD Discharging Provider: Jay Lozada MD DS: Diagnosis Problem List Completed Was Problem List Reviewed/Reconciled?: Yes Hospital Course Hospital Course Hospital course: 79-year-old female with past medical history of hypertension, hyperlipidemia, hypothyroidism, paroxysmal A-fib, stroke with left-sided residuals presented to the ED 12/14 with status epilepticus. Patient has history of right MCA thrombus which she received tenecteplase and was transferred to [facility] for thrombectomy; however, the stroke had a hemorrhagic conversion. Patient has been in a SNF since then. Patient developed seizures at the SNF and was brought in and upgraded to ICU for sedation. Repeat head CT showed lesions in the right frontal lobe and right parietal lobe; MRI brain was ordered which showed enhancing lesions in the right frontal lobe and right parietal lobe. Neurology was consulted and their recommendations were that the lesions were most likely not brain metastasis and that they were more consistent with a large infarct in the right frontal and parietal area. A request has been made to get imaging studies from from [place] for comparison. Patient was started on Keppra and did not have any seizure activity while in the hospital. EEG was ordered which showed diffuse slowing which is found usually with metabolic/vascular pathologies. Patient was downgraded from ICU after being weaned off sedation and started working with physical therapy/speech ther apy. Cardiology was consulted as the patient did develop atrial fibrillation while in the hospital; was initially started on amiodarone drip and then transition to oral formulation. During hospitalization, patient did have an acute superficial cephalic vein thrombus but due to history of hemorrhagic conversion; anticoagulation is held and based off cardiology recommendation, the thrombus will degrade on its own. Patient also had a UTI which was treated initially with ceftriaxone, then switched to Zosyn based off sensitivities and finally switched to oral formulation Cipro. Patient's sputum culture was positive for Pseudomonas as a result no changes were made to antibiotics as ciprofloxacin covered Pseudomonas. Patient was on isolation while being on antibiotics. Patient does NOT need further isolation. Patient will be discharged with the following strict instructions. Please take amiodarone 200 mg tablet twice a day, atorvastatin 40 mg, nifedipine 60 mg daily Take levothyroxine 112 mcg in the morning before any meal or other medication; at least 1 hour Please take ciprofloxacin 500 mg for the next 2 days as directed Follow-up with your PCP within 1 to 2 weeks of discharge Follow-up with your home care associate, Dr. Lockhart, within 1 to 2 weeks of discharge Follow-up with her neurologist, Dr. Rolon, within 1 to 2 weeks of discharge If your symptoms worsen or if you develop new seizures, chest pain, shortness of breath or bleeding please come back to the ED immediately #Acute Encephalopathy secondary to New Onset Seizure #Acute cerebrovascular accident #Status epilepticus #History of Stroke w/ Hemorrhagic conversion (11/2024) #Acute Respiratory Failure, resolved - extubated #Acute thrombus in the superficial cephalic vein #UTI #Leuckocytosis #Hypertension #CKD stage 3A #Electrolyte abnormalities #Hypothyroidism Discharge summary was reviewed with my attending Dr. Sandrine Lozada, PGY-2 Status at Discharge Overall status at discharge: patient is progressing back to baseline Time Spent with Patient Time attestation: Total time spent providing and/or coordinating discharge services: Time spent: Greater than 30 minutes Exam Vital Signs Temp Pulse Resp BP Pulse Ox O2 Del Method O2 Flow Rate 97.7 F 86 18 154/72 H 96 Room Air 4 12/21/24 12:00 12/21/24 12:00 12/21/24 12:00 12/21/24 12:12/21/24 12:12/21/24 12:00 12/20/24 16:00 FiO2 21 12/20/24 16:00 Narrative Exam General: Elderly female, in no acute distress on NC. Alert and awake. Able to follow some commands. HEENT: NC/AT, NT, PERRLA, MMM Lungs: CTAB, no wheezing, rhonchi CVS: S1S2, RRR, no murmurs or rubs heard ABD: soft, non-distended, non-tender, presence of PEG tube noted : G-tube in place, intact, and no signs of erythema or exudate EXT: radial pulses 2+ BL, DP pulses 2 + BL, Neuro: GCS 12. Patient unable to state her name at this time. Left facial droop and left hemiparesis. 3/5 motor strength in RUE/RLE. Discharge Plan Plan Patient Disposition: Xfer Skilled Nsg Fac (SNF) Care Plan Goals: Please take amiodarone 200 mg tablet twice a day, atorvastatin 40 mg, nifedipine 60 mg daily Take levothyroxine 112 mcg in the morning before any meal or other medication; at least 1 hour Please take antibiotic ciprofloxacin 500 mg for the next 2 days as directed Follow-up with your PCP within 1 to 2 weeks of discharge Follow-up with your home care associate, Dr. Lockhart, within 1 to 2 weeks of discharge Follow-up with her neurologist, Dr. Rolon, within 1 to 2 weeks of discharge If your symptoms worsen or if you develop new seizures, chest pain, shortness of breath or bleeding please come back to the ED immediately Prescriptions/Referrals Prescriptions/Med Rec: New amiodarone 200 mg Tablet 200 mg G-tube BID 30 Days Qty: 60 0RF levothyroxine 112 mcg capsule 112 mcg PO ACBR Qty: 30 0RF nifedipine 30 mg Tablet Extended Release 24hr 60 mg PO QDAY 30 Days Qty: 60 0RF atorvastatin 20 mg Tablet 40 mg PO HS 30 Days Qty: 60 0RF ciprofloxacin HCl 250 mg tablet 250 mg PO BID Qty: 4 0RF Continued docusate sodium [Colace] 100 mg capsule 100 mg PO Q12HR PRN (Reason: constipation ) Rx Instructions: Hold for loose stools ezetimibe 10 mg tablet 10 mg feeding tube .qday Patient Comments: TAKE 1 TABLET BY MOUTH EVERY DAY levetiracetam [Keppra] 100 mg/mL solution 500 mg PO Q12H lidocaine 5 % adhesive patch,medicated 1 patch topical Q24H Rx Instructions: leave on most painful area for up to 12 hrs CalaSoothe 0.44-20.6 % cream in packet 1 applic topical Q6HR PRN (Reason: pain) metoprolol tartrate [Lopressor] 50 mg tablet 50 mg PO BID sennosides [senna] 8.6 mg tablet 8.6 mg PO Q12H PRN (Reason: constipation) acetaminophen [Tylenol] 325 mg tablet 650 mg PO Q4H PRN (Reason: pain) Held tizanidine 2 mg capsule 2 mg PO HS Hold Instructions: Resume on 01/15/25. Discontinued clonidine HCl 0.1 mg tablet 0.1 mg PO Q12H PRN (Reason: hypertensive emergency) Rx Instructions: BP >170 or DPB >90 levothyroxine 75 mcg tablet 75 mcg feeding tube QDAY Referrals: Cayden Little MD [Primary Care Provider] - Junior Lockhart MD [Physician] - Charles Rolon MD [Physician] - Patient/Caregiver Discharge Instructions Other Discharge Activity Instructions:: Please take amiodarone 200 mg tablet twice a day, atorvastatin 40 mg, nifedipine 60 mg daily Take levothyroxine 112 mcg in the morning before any meal or other medication; at least 1 hour Please take antibiotic ciprofloxacin 500 mg for the next 2 days as directed Follow-up with your PCP within 1 to 2 weeks of discharge Follow-up with your home care associate, Dr. Lockhart, within 1 to 2 weeks of discharge Follow-up with her neurologist, Dr. Rolon, within 1 to 2 weeks of discharge If your symptoms worsen or if you develop new seizures, chest pain, shortness of breath or bleeding please come back to the ED immediately Education Materials: Discharge Instructions for Epilepsy, Discharge Instructions for Stroke Print Language: Lao Stand Alone Forms: [facility]e Award Info., Patient Portal Info Letter Discharge Order Discharge Orders: Discharge (Routine); Ordered 12/21/24 Ordered By: Jay Lozada Quality Discharge Quality Measures sepsis Attestestation MD Attestation I attest that I was physically present for the evaluation, physical examination, lab and imaging review of the patient with the residents. I discussed the case with the residents and agree with the findings and plans of care as documented above. Fabio Deluca MD
--- NOTE | 2024-12-21 14:22 | PC.SS ---
SS received call from [facility], asking for fax confirming pt no longer needs isolation; SS working with medical team
--- NOTE | 2024-12-21 17:47 | PC.NURSE ---
Ame psychologist social had spoken to patient's [facility], however daughter had a change of mind and is adamant for her [facility]. Ame was contacted and is to come back and talk with daughter again.
[2024-12-21] MEDS: ATORVASTATIN CALCIUM 20 MG TABLET 40 MG PO (21:43)
--- NOTE | 2024-12-21 21:50 | ESPR_ITS ---
RE: ANDRE AWAN : 1945 DATE OF SERVICE: 12/21/2024 SUBJECTIVE: Andre Awan is doing a little better today. She is maintaining sinus rhythm, history of stroke with mild hemorrhagic transformation requiring discontinuation of anticoagulation and paroxysmal A-fib, now maintaining sinus rhythm, tolerating amiodarone well. Vital signs remain stable, not complaining of any shortness of breath or chest pain. Neurologic condition remains unstable. Presently, she is on amiodarone 200 mg twice daily. No anticoagulation as per neurology recommendation as well as my recommendation. She is also on metoprolol tartrate 50 mg twice daily, nifedipine 60 mg daily for blood pressure. OBJECTIVE: Vital Signs: Blood pressure 118/70, pulse 88. Neck: Supple. No JVD. Chest: Symmetric. Lungs: Decreased breath sounds. No rales. Heart: S1 and S2 regular. No gallops or murmurs. Abdomen: Abdomen is thin and soft. Extremities: No edema. Neurologic: Persistent hemiparesis, unchanged. IMPRESSION: 1. History of embolic stroke with paroxysmal atrial fibrillation and hemorrhagic transformation. 2. Paroxysmal atrial fibrillation, maintaining sinus rhythm with amiodarone. RECOMMENDATIONS: Continue amiodarone. No anticoagulation for the next 2 months. I will see her for followup in the office in 1-2 months and discussion about re-resume her anticoagulation with [facility]. DT: 20:54:53 TT: 21:48:00 Ref: [id number] - TID: [id number]
[2024-12-22] VITALS (8 sets, daily range): BP systolic 126–146; BP diastolic 78–88; PULSE 75–85; RESP 16–21; TEMP 36.1–36.7; O2SAT 97–98; BMI 25.0; BMI 12.0
--- NOTE | 2024-12-22 00:01 | PD.VPROG1 ---
Telemedicine visit statement This visit was conducted with the use of interactive audio and video telecommunications system that permits real time communication between the patient and the provider. Patient's verbal consent for virtual visit was obtained on 12/22/24 at [facility]. Documentation for date of: 12/22/24 Subjective Subjective Interval history: Patient is in MedSurg. No new symptoms reported. Continues to have left dense hemiplegia, tolerating oral diet well. Virtual exam Vital Signs Temp Pulse Resp BP Pulse Ox O2 Del Method O2 Flow Rate 96.9 F 88 18 118/71 97 Room Air 4 12/21/24 20:00 12/21/24 21:44 12/21/24 20:00 12/21/24 21:44 12/21/24 20:00 12/21/24 20:00 12/20/24 16:00 FiO2 21 12/20/24 16:00 Objective Labs 12/21/24 04:39 12/21/24 04:39 Labs: Laboratory Results - last 24 hr 12/21/24 04:39 WBC 7.0 RBC 4.78 Hgb 14.1 Hct 42.8 MCV 90 MCH 29.5 MCHC 32.9 RDW Std Deviation 42.5 Plt Count 390 D Neut % (Auto) 62 Lymph % (Auto) 25 [place] % (Auto) 8 Eos % (Auto) 3 Baso % (Auto) 1 Neut # (Auto) 4.4 Lymph # (Auto) 1.8 [place] # (Auto) 0.5 Eos # (Auto) 0.2 Baso # (Auto) 0.1 Immature Gran # (Auto) 0.02 H Absolute Nucleated RBC 0.00 Immature Gran % 0 Nucleated RBC % 0 Sodium 139 Potassium 3.5 Chloride 102 Carbon Dioxide 28.1 Anion Gap 9 BUN 18 Creatinine 0.9 Estim Creat Clear Calc 42.4 L eGFR > 60 BUN/Creatinine Ratio 20 Glucose 93 Calculated Osmolality 279 Calcium 10.1 Corrected Calcium 10.4 H Total Bilirubin 0.4 AST 32 ALT 23 Alkaline Phosphatase 89 Total Protein 6.9 Albumin 3.6 Globulin 3.3 Albumin/Globulin Ratio 1.1 L ABG Interpretation ABG results: 12/13/24 12/14/24 12/15/24 20:39 05:34 03:39 ABG pH 7.53 H 7.42 D 7.51 H ABG pCO2 33 39 33 ABG pO2 468 H 235 H D 102 D ABG HCO3 27 H 26 27 H ABG O2 Saturation 101 H 101 H 99 H ABG Base Excess 5 H 1 4 H Assessment & Plan Assessment 1) Acute right MCA stroke: Discussed extubated, GCS: 14, back to baseline, continue to be hemiplegic on the left Continue with range of motion exercises on the left upper and lower extremities. MRI brain showed findings consistent with large infarct in the right frontal and parietal area. In my opinion it is not suggestive of brain mets Will hold off on antiplatelet/anticoagulant therapy for at least 3 months because of the recent intracerebral hemorrhage event. Stable for discharge (2) Status epilepticus: resolved No seizures reported after admission, continue with Keppra. (3) Acute UTI: Treated with antibiotics, Going to be discharged to [facility].
[2024-12-22] MEDS: ACETAMINOPHEN 325 MG TABLET 650 MG PO (09:01)
[2024-12-22] MEDS: NIFEdipine XL 30 MG TABCR 60 MG PO (09:02)
[2024-12-22] MEDS: CIPROFLOXACIN HCL 250 MG TABLET 500 MG PO (09:03)
[2024-12-22] MEDS: METOPROLOL TARTRATE 25 MG TABLET 50 MG PO (09:03)
[2024-12-22] MEDS: AMIODARONE HCL 200 MG TABLET PO (09:04)
[2024-12-22] MEDS: SENNOSIDES SYRUP 8.8 MG/5 ML UDC PO (09:05)
[2024-12-22] MEDS: HEPARIN SOD INJ 5000 UNIT/ML VIAL SC (09:05)
[2024-12-22] MEDS: levETIRAcetam INJ 100 MG/ML VIAL 5ML 1000 MG IVP (09:06)
--- NOTE | 2024-12-22 09:44 | PC.SS ---
Addendum entered by Sussy Vega 12/22/24 11:54: SS met with pt, dtr, Cat, and granddaughter at bedside. SS provided the [facility] [employer] List but dtr refused. Dtr states she received a call from [facility] asking if she was going to appeal dc and dtr explained she was not going to appeal. SS provided them with verbal options for d/c to home with HH, SNF outside the area, [facility] who is accepting, or return to [facility]. Dtr was requesting [facility]. SS called but was only able to leave voicemail (while in patient's room). Dtr is agreeable to [facility]. SS has called Harmeet from [employer] who states they are not the transportation vendor. Amauri from PT was at bedside and his recommendation was for gurney transport. Dtr states she is unable to pay privately for transportation. SS has setup transportation with Javier from [employer] for 2pm to [facility]. Bedside nurse, Kavita is aware. Pt, dtr, and granddtr are aware. Yun from [facility] is aware. Original Note: Follow up note: From [facility] pt is was declined to [facility], [facility], and [facility]. Pt is from [facility]. SS spoke to Ricarda from [facility] they have declined. SS spoke to Pura at [facility] they do not have female beds available. SS spoke to Yun from [facility] who states they are able to accept but they do not have private room. SS spoke to Cat sotelo to provide her with verbal d/c options to home, return to [facility], or d/c to [facility]. Dtr is aware of the the declining SNF. Dtr states she called [facility] late in the evening but was not able to speak with insurance sales representative and was going to call again today. Dtr is aware [facility] is not able to hold bed if she decides to appeal. Dtr is aware [facility] is the only accepting facility in [place]. Dtr is aware pt is ready for dc. Dtr is requesting to speak with family before deciding.
--- NOTE | 2024-12-22 12:40 | PD.RESPRO ---
Documentation for date of: 12/22/24 Subjective Subjective Interval history: No overnight events. Patient seen examined at bedside. Patient resting comfortably, no distress, denies chest pain, shortness of breath, palpitations. Patient remains well-controlled with amiodarone. Patient stable for discharge from cardiology perspective. Exam Vital Signs Temp Pulse Resp BP Pulse Ox O2 Del Method O2 Flow Rate 98.0 F 75 17 136/78 H 97 Room Air 4 12/22/24 11:59 12/22/24 11:59 12/22/24 11:59 12/22/24 11:59 12/22/24 11:59 12/22/24 11:59 12/20/24 16:00 FiO2 21 12/20/24 16:00 Narrative Exam PE: Gen: Well-developed and well-nourished. Elderly. HEENT: NCAT, PERRLA, EOMI, MMM, anicteric conjunctivae. Left facial droop. CVS: normal S1 and S2. RRR. No M/R/G. Resp: CTA B/L. No rhonchi, rales, crackles or wheezing. Abd: soft, non-tender, non-distended. MSK: Good ROM in RUE & RLE. No rash. 2+ pitting edema LUE. 3+ edema LLE. Neuro: CN II-XII grossly intact. Strength 5/5 in RUE & RLE. Alert and oriented x3. Left sided hemiplegia. Psych: appropriate mood and affect. Objective Labs 12/21/24 04:39 12/21/24 04:39 ABG Interpretation ABG results: 12/13/24 12/14/24 12/15/24 20:39 05:34 03:39 ABG pH 7.53 H 7.42 D 7.51 H ABG pCO2 33 39 33 ABG pO2 468 H 235 H D 102 D ABG HCO3 27 H 26 27 H ABG O2 Saturation 101 H 101 H 99 H ABG Base Excess 5 H 1 4 H Quality Measures Quality Measures sepsis Current suspected stage: sepsis Possible source: genitourinary Blood cultures ordered: yes Antibiotic ordered: Yes Advance care planning discussed with:: patient Assessment & Plan Assessment Current Active Medications: Generic Name Dose Route Start Last Admin Trade Name Freq PRN Reason Stop Dose Admin Acetaminophen 650 mg 12/16/24 15:42 Acetaminophen Supp 650 Mg Supp [place] 01/12/25 23:56 Q6HR PRN FEVER>101.5 Acetaminophen 650 mg 12/19/24 11:18 12/22/24 09:01 Acetaminophen 325 Mg Tablet PO 01/15/25 15:39 650 mg Q6HR PRN Administration Fever >100.4 and Pain 1-3 Amiodarone HCl 200 mg 12/19/24 11:18 12/22/24 09:04 Amiodarone Hcl 200 Mg Tablet PO 01/16/25 20:59 200 mg BID JOHNY Administration Atorvastatin Calcium 40 mg 12/18/24 21:00 12/21/24 21:43 Atorvastatin Calcium 20 Mg Tablet PO 01/17/25 20:59 40 mg HS JOHNY Administration Ciprofloxacin 500 mg 12/17/24 10:30 12/22/24 09:03 Ciprofloxacin Hcl 250 Mg Tablet PO 12/24/24 10:29 500 mg QDAY JOHNY Administration Protocol Heparin Sodium (Porcine) 5,000 unit 12/14/24 09:00 12/22/24 09:05 Heparin Sod Inj 5000 Unit/Ml Vial SC 12/28/24 08:59 5,000 unit Q12HR JOHNY Administration Levetiracetam 1,000 mg 12/14/24 09:00 12/22/24 09:06 Levetiracetam Inj 100 Mg/Ml Vial 5ml IVP 01/13/25 08:59 1,000 mg Q12HR JOHNY Administration Levothyroxine Sodium 112 mcg 12/19/24 11:18 12/22/24 05:59 Levothyroxine Sodium 112 Mcg Tablet PO 01/14/25 05:59 Not Given ACBR JOHNY Metoprolol Tartrate 50 mg 12/17/24 10:20 12/22/24 09:03 Metoprolol Tartrate 25 Mg Tablet PO 01/16/25 10:19 50 mg BID JOHNY Administration Nifedipine 60 mg 12/17/24 09:00 12/22/24 09:02 Nifedipine Xl 30 Mg Tabcr PO 01/16/25 08:59 60 mg QDAY JOHNY Administration Sennosides 8.8 mg 12/19/24 11:10 12/22/24 09:05 Sennosides Syrup 8.8 Mg/5 Ml Udc PO 01/16/25 08:59 8.8 mg QDAY JOHNY Administration Protocol Plan 79-year-old female with past medical history of hypertension, hyperlipidemia, hypothyroidism, paroxysmal A-fib not on anticoagulation, and recent stroke s/p TPA in 10/27 and hemorraghic conversion with left-sided residuals in 11/28 who presented to the ED from SNF due to status epilepticus/seizures and admitted to ICU for further management; downgraded upon successful weaning off sedation and back to baseline. Cardiology consulted for management of paroxysmal afib. #Atrial Fibrillation, paroxysmal Patient has history of PAF, dignosed after stroke in 10/2024. No anticoagulation due to recent history of hemorrhagic conversion in November. Patient currently rate and rhythm controlled, however noted to go in and out of atrial fibrillation. Only taking atenolol 50 mg at home. Patient developed episode of afib overnight, was given amiodarone bolus and started on drip with rhythm control achieved. Remained rhythm controlled with 200 mg via G-tube. Patient remains rhythm controlled. -Metoprolol tartrate 50mg twice daily -Amiodarone 200 mg by G-Tube BID -continue to hold anticoag in setting of recent hemorrhagic conversion of stroke. -follow up outpatient with cardiology -Stable for discharge from cardiology perspective #Acute Encephalopathy secondary to New Onset Seizure #Status epilepticus #History of Stroke w/ Hemorrhagic conversion (11/2024) #Suspicion for Cerebral Mass, unlikely #Acute Respiratory Failure, resolved - extubated #Acute thrombus in the superficial cephalic vein #UTI #Leuckocytosis #Hypertension #CKD stage 3A #Electrolyte abnormalities #Hypothyroidism Management as per primary team. DVT prophylaxis: Contraindicated GI prophylaxis: None Diet: Pureed Lines: PIV Code status: Full Code Plan of care discussed with attending Dr. Richy Franklin MD PGY-1
--- NOTE | 2024-12-22 12:49 | ESDS_ITS ---
<Statement entered by Jay Lozada MD - 12/23/24 13:46> I discussed with and supervised the leadership intern physician involved in the care of this patient. Patient assessment and plan was discussed with entire medicine team, including my attending. I agree with the assessment and plan as documented by leadership intern doctor. Patient care was discussed with my attending physician Dr. Sandrine Lozada, PGY-2 Planned Discharge Date 12/22/24 DS: Providers Provider Date of admission: 12/13/24 23:57 Primary care physician: Cayden Little MD Admitting Provider: Richard Jay MD Attending Provider on Admission: Shelly Duran MD Consults: 12/13/24 23:48 Consult to Neurology / Tele-Neurology Stat Comment: New onset seizures Consulting Provider: Charles Rolon 12/16/24 09:08 Referral Physical Therapy Routine Comment: Physician Instructions: Referral Speech Therapy Routine Comment: 12/17/24 10:16 Consult to Cardiology Routine Comment: Consulting Provider: Junior Lockhart Instructions: possible afib 12/22/24 05:52 Referral Wound Care Stat Comment: Attending Provider on DC: Delano Yates MD Discharging Provider: Delano Yates MD DS: Diagnosis Problem List Completed Was Problem List Reviewed/Reconciled?: Yes Hospital Course Hospital Course Hospital course: As outlined and updated from discharge summary from 12/21/2024 79-year-old female with past medical history of hypertension, hyperlipidemia, hypothyroidism, paroxysmal A-fib, stroke with left-sided residuals presented to the ED 12/14 with status epilepticus. Patient has history of right MCA thrombus which she received tenecteplase and was transferred to for thrombectomy; however, the stroke had a hemorrhagic conversion. Patient has been in a SNF since then. Patient developed seizures at the SNF and was brought in and upgraded to ICU for sedation. Repeat head CT showed lesions in the right frontal lobe and right parietal lobe; MRI brain was ordered which showed enhancing lesions in the right frontal lobe and right parietal lobe. Neurology was consulted and their recommendations were that the lesions were most likely not brain metastasis and that they were more consistent with a large infarct in the right frontal and parietal area. A request has been made to get imaging studies from from [place] for comparison. Patient was started on Keppra and did not have any seizure activity while in the hospital. EEG was ordered which showed diffuse slowing which is found usually with metabolic/vascular pathologies. Patient was downgraded from ICU after being weaned off sedation and started working with physical therapy/speech therapy. Cardiology was consulted as the patient did develop atrial fibrillation while in the hospital; was initially started on amiodarone drip and then transition to oral formulation. During hospitalization, patient did have an acute superficial cephalic vein thrombus but due to history of hemorrhagic conversion; anticoagulation is held and based off cardiology recommendation, the thrombus will degrade on its own. Patient also had a UTI which was treated initially with ceftriaxone, then switched to Zosyn based off sensitivities and finally switched to oral formulation Cipro. Patient's sputum culture was positive for Pseudomonas as a result no changes were made to antibiotics as ciprofloxacin covered Pseudomonas. Patient was on isolation while being on antibiotics. Patient will be discharged with the following strict instructions. Please take amiodarone 200 mg tablet twice a day, atorvastatin 40 mg, nifedipine 60 mg daily Take levothyroxine 112 mcg in the morning before any meal or other medication; at least 1 hour Please take ciprofloxacin 500 mg for the next 2 days as directed Follow-up with your PCP within 1 to 2 weeks of discharge Follow-up with your criminal justice professor, Dr. Lockhart, within 1 to 2 weeks of discharge Follow-up with her neurologist, Dr. Rolon, within 1 to 2 weeks of discharge If your symptoms worsen or if you develop new seizures, chest pain, shortness of breath or bleeding please come back to the ED immediately Hospital Diagnosis: #Acute Encephalopathy secondary to New Onset Seizure #Acute cerebrovascular accident #Status epilepticus #History of Stroke w/ Hemorrhagic conversion (11/2024) #Acute Respiratory Failure, resolved - extubated #Acute thrombus in the superficial cephalic vein #UTI #Leuckocytosis #Hypertension #CKD stage 3A #Electrolyte abnormalities #Hypothyroidism Delano Yates, PGY-1 Status at Discharge Overall status at discharge: patient is progressing back to baseline Time Spent with Patient Time attestation: Total time spent providing and/or coordinating discharge services: 45 minutes Time spent: Greater than 30 minutes Exam Vital Signs Temp Pulse Resp BP Pulse Ox O2 Del Method O2 Flow Rate 98.0 F 75 17 136/78 H 97 Room Air 4 12/22/24 11:59 12/22/24 11:59 02/18/25 11:59 12/22/24 11:59 12/22/24 11:59 12/22/24 11:59 12/20/24 16:00 FiO2 21 12/20/24 16:00 Narrative Exam General: Elderly female, in no acute distress on NC. Alert and awake. Able to follow some commands. HEENT: NC/AT, NT, PERRLA, MMM Lungs: CTAB, no wheezing, rhonchi CVS: S1S2, RRR, no murmurs or rubs heard ABD: soft, non-distended, non-tender, presence of PEG tube noted : G-tube in place, intact, and no signs of erythema or exudate EXT: radial pulses 2+ BL, DP pulses 2 + BL, Neuro: GCS 12. Patient unable to state her name at this time. Left facial droop and left hemiparesis. 3/5 motor strength in RUE/RLE. Discharge Plan Plan Patient Disposition: Xfer Skilled Nsg Fac (SNF) Care Plan Goals: Please take amiodarone 200 mg tablet twice a day, atorvastatin 40 mg, nifedipine 60 mg daily Take levothyroxine 112 mcg in the morning before any meal or other medication; at least 1 hour Please take antibiotic ciprofloxacin 500 mg for the next 2 days as directed Follow-up with your PCP within 1 to 2 weeks of discharge Follow-up with your criminal justice professor, Dr. Lockhart, within 1 to 2 weeks of discharge Follow-up with her neurologist, Dr. Rolon, within 1 to 2 weeks of discharge If your symptoms worsen or if you develop new seizures, chest pain, shortness of breath or bleeding please come back to the ED immediately Prescriptions/Referrals Prescriptions/Med Rec: New amiodarone 200 mg Tablet 200 mg G-tube BID 30 Days Qty: 60 0RF levothyroxine 112 mcg capsule 112 mcg PO ACBR Qty: 30 0RF nifedipine 30 mg Tablet Extended Release 24hr 60 mg PO QDAY 30 Days Qty: 60 0RF atorvastatin 20 mg Tablet 40 mg PO HS 30 Days Qty: 60 0RF ciprofloxacin HCl 250 mg tablet 250 mg PO BID Qty: 4 0RF Continued docusate sodium [Colace] 100 mg capsule 100 mg PO Q12HR PRN (Reason: constipation ) Rx Instructions: Hold for loose stools ezetimibe 10 mg tablet 10 mg feeding tube .qday Patient Comments: TAKE 1 TABLET BY MOUTH EVERY DAY levetiracetam [Keppra] 100 mg/mL solution 500 mg PO Q12H lidocaine 5 % adhesive patch,medicated 1 patch topical Q24H Rx Instructions: leave on most painful area for up to 12 hrs CalaSoothe 0.44-20.6 % cream in packet 1 applic topical Q6HR PRN (Reason: pain) metoprolol tartrate [Lopressor] 50 mg tablet 50 mg PO BID sennosides [senna] 8.6 mg tablet 8.6 mg PO Q12H PRN (Reason: constipation) acetaminophen [Tylenol] 325 mg tablet 650 mg PO Q4H PRN (Reason: pain) Held tizanidine 2 mg capsule 2 mg PO HS Hold Instructions: Resume on 01/15/25. Discontinued clonidine HCl 0.1 mg tablet 0.1 mg PO Q12H PRN (Reason: hypertensive emergency) Rx Instructions: BP >170 or DPB >90 levothyroxine 75 mcg tablet 75 mcg feeding tube QDAY Referrals: Cayden Little MD [Primary Care Provider] - Junior Lockhart MD [Physician] - Charles Rolon MD [Physician] - Patient/Caregiver Discharge Instructions Other Discharge Activity Instructions:: Please take amiodarone 200 mg tablet twice a day, atorvastatin 40 mg, nifedipine 60 mg daily Take levothyroxine 112 mcg in the morning before any meal or other medication; at least 1 hour Please take antibiotic ciprofloxacin 500 mg for the next 2 days as directed Follow-up with your PCP within 1 to 2 weeks of discharge Follow-up with your criminal justice professor, Dr. Lockhart, within 1 to 2 weeks of discharge Follow-up with her neurologist, Dr. Rolon, within 1 to 2 weeks of discharge If your symptoms worsen or if you develop new seizures, chest pain, shortness of breath or bleeding please come back to the ED immediately Education Materials: Discharge Instructions for Epilepsy, Discharge Instructions for Stroke Print Language: Kinyarwanda Stand Alone Forms: Kaycee Award Info., Patient Portal Info Letter Discharge Order Discharge Orders: Discharge (Routine); Ordered 12/21/24 Ordered By: Jay Lozada Quality Discharge Quality Measures VTE prophylaxis Attestestation Attestation I attest that I was physically present for the evaluation, physical examination, lab and imaging review of the patient with the residents. I discussed the case with the residents and agree with the findings and plans of care as documented above. Fabio Deluca MD
== END 2024-12-22 13:58 | disposition skilled nursing facility (03) | DRG 64 ==
LOC: SERX 21:39 → SERHOLD 12-14 06:59 → S2SX 12-14 06:59 → S2NX 12-17 15:16 → S3NX 12-19 01:41
PROVIDERS: Student in an Organized Health Care Education/Training Program; Admitting Provider Student in an Organized Health Care Education/Training Program; Emergency Provider Emergency Medicine; PCP Internal Medicine Hospice and Palliative Medicine; Visit Provider Internal Medicine
DX: I63.511 Cerebral infarction due to unspecified occlusion or stenosis of right middle cerebral artery (principal); G93.41 Metabolic encephalopathy; J96.01 Acute respiratory failure with hypoxia; N39.0 Urinary tract infection, site not specified; G81.14 Spastic hemiplegia affecting left nondominant side; I82.619 Acute embolism and thrombosis of superficial veins of unspecified upper extremity; Z16.19 Resistance to other specified beta lactam antibiotics; E87.4 Mixed disorder of acid-base balance; G40.901 Epilepsy, unspecified, not intractable, with status epilepticus; E03.9 Hypothyroidism, unspecified; R13.10 Dysphagia, unspecified; I12.9 Hypertensive chronic kidney disease with stage 1 through stage 4 chronic kidney disease, or unspecified chronic kidney disease; E78.5 Hyperlipidemia, unspecified; I48.0 Paroxysmal atrial fibrillation; N18.31 Chronic kidney disease, stage 3a; E83.42 Hypomagnesemia; D75.839 Thrombocytosis, unspecified; Z93.1 Gastrostomy status; B96.5 Pseudomonas (aeruginosa) (mallei) (pseudomallei) as the cause of diseases classified elsewhere; Z79.899 Other long term (current) drug therapy; Z86.73 Personal history of transient ischemic attack (TIA), and cerebral infarction without residual deficits; Z88.1 Allergy status to other antibiotic agents; Z99.3 Dependence on wheelchair; Z78.9 Other specified health status
CPT/HCPCS: 36415; 36600; 70450; 70553; 72125; 80053; 80061; 80307; 81001; 82550; 82803; 83605; 83615; 83690; 83735; 83880; 84100; 84145; 84439; 84443; 84484; 85025; 85610; 85730; 87040; 87077; 87081; 87086; 87186; 87205; 92526; 92610; 93005; 93225; 93971; 94002; 94003; 95816; 96365; 96366; 96375; 97162; 99291; 99292; A9579; J0283; J0360; J0696; J1100; J1643; J1940; J1953; J2250; J2251; J2470; J2543; J3010; J3360; J3475; J3490; J7030; J7120; A9270

== ENCOUNTER 2025-01-13 02:18 | Inpatient (IN) | payer MEDICARE, BC, SELFPAY ==
[2025-01-13] VITALS (11 sets, daily range): BP systolic 123–135; BP diastolic 60–95; PULSE 58–90; RESP 14–99; TEMP 36–36.3; O2SAT 97–100; BMI 24.8; BMI 23.3
--- NOTE | 2025-01-13 | XR_ITS ---
Examinations: MRI Brain without intravenous contrast. MRA brain without intravenous contrast. MRA carotids without intravenous contrast 3-D vascular reconstructions Date and time of exam: January 13, 2025 1540 hrs. Indications: CT stroke alert January 13, 2025, onset focal neurologic deficit Technique: Multiple axial and sagittal images of the brain have been obtained MRA brain carotid images without contrast obtained, including 3-D postprocessing, vascular maximum intensity projection images Findings: Sellaturcica is not enlarged. The optic chiasm and infundibular stalk are not remarkable. Prepontine and interpeduncular cisterns are not enlarged. No localized enlargement of the medulla or gage. Fourth ventricle and cerebellar tonsils normal in position. Subacute hemorrhage is not seen. Fourth ventricle is midline. Mass in the cerebellopontine angle region is not evident. 7th and 8th nerve complexes exhibits symmetry. Globes are symmetrical with no retro-orbital mass. Increased white matter signal prominent, including old infarct right middle cerebral artery distribution Diffusion-weighted images demonstrate 25 mm focus restricted diffusion right frontal lobe Mass-effect upon the ventricular system is not identified. MRA brain images degraded by patient motion Impression: Negative for acute hemorrhage or mass effect 25 mm focus restricted diffusion right frontal lobe without prominent signal deficit on the ADC map, recommend neurology consultation and correlation with clinical findings
--- NOTE | 2025-01-13 02:24 | PD.EDNEURO ---
Neuro Symptoms Deficit-RME/HPI General Chief Complaint: Seizure Stated Complaint: SEIZURE Arrival date/time: 01/13/25 02:18 RME / HPI RME / HPI Narrative: 79-year-old female with history of high cholesterol, atrial fibrillation, hypertension, hypothyroidism, paroxysmal A-fib, history of stroke with left-sided residual, previous admission December 2024 for status epilepticus here at this facility. The patient ended up having a right MCA thrombus and received TNK. Presenting from [facility] with witnessed seizure at 1:40 AM. Last normal seen was 12 AM. EMS reports when they picked her up they did not see her sees but and route she had tonic-clonic seizure and bit her tongue. The patient was given 0.8 mg of Versed. They report a left gaze and route. ED fingerstick 107. Related Data Home Medications ?Medication ?Instructions ?Recorded ?Confirmed acetaminophen 325 mg tablet 650 mg PO Q4H PRN pain 12/14/24 12/14/24 (Tylenol) docusate sodium 100 mg capsule 100 mg PO Q12HR PRN constipation 12/14/24 12/14/24 (Colace) ezetimibe 10 mg tablet 10 mg feeding tube .qday high 12/14/24 12/14/24 cholesterol levetiracetam 100 mg/mL oral 500 mg PO Q12H 12/14/24 12/14/24 solution (Keppra) lidocaine 5 % topical patch 1 patch topical Q24H 12/14/24 12/14/24 menthol 0.44 %-zinc oxide 20.6 % 1 applic topical Q6HR PRN pain 12/14/24 12/14/24 topical cream packet (CalaSoothe) metoprolol tartrate 50 mg tablet 50 mg PO BID 12/14/24 12/14/24 (Lopressor) sennosides 8.6 mg tablet (senna) 8.6 mg PO Q12H PRN constipation 12/14/24 12/14/24 tizanidine 2 mg capsule 2 mg PO HS 12/14/24 12/14/24 Held on 12/18/24. Instructions: Resume on 01/15/25. Previous Rx's ?Medication ?Instructions ?Recorded amiodarone 200 mg tablet 200 mg G-tube BID 1 month #60 tabs 02/14/25 atorvastatin 20 mg tablet 40 mg (2 x 20 mg) PO HS 1 month 12/18/24 #60 tabs levothyroxine 112 mcg capsule 112 mcg PO ACBR #30 caps 12/18/24 nifedipine 30 mg tablet,extended 60 mg (2 x 30 mg) PO QDAY 1 month 12/18/24 release 24 hr #60 tabs ciprofloxacin HCl 250 mg tablet 250 mg PO BID #4 tabs 12/21/24 Allergies Allergy/AdvReac Type Severity Reaction Status Date / Time codeine Allergy Verified 12/13/24 19:10 pravastatin Allergy Verified 12/13/24 19:10 promethazine (From Phenergan) Allergy Verified 12/13/24 19:10 sulfamethoxazole (From Allergy Verified 12/13/24 19:10 Bactrim) trimethoprim (From Bactrim) Allergy Verified 12/13/24 19:10 Course Course Course Narrative: 0222-Stroke alert activated. Patient is not a tPA candidate due to having a recent MCA 2 weeks ago and having active seizures. 022-charge nurse called the facility and the facility nurse reports [facility] last saw patient normal at 12 AM 022-patient to CAT scan 0300- Tele Rads report abnormal CT-acute stroke left frontal and chronic right frontal 030- Tele Neuro at the bedside 0320- 30 seconds seizure note. Ativan 2 mg given 033- Tele Requests Keppra 3500 mg IV 0335- HR 86 BP 143/82 RR 19 97 RA 0350-Discussed with telemetry radiology. She is calling the telemetry radiology directly to confirm if there is a new acute stroke. 0359 Quality Measures none Orders Category Date Time Status Admit to Inpatient Status Routine Admission 01/13/25 05:29 Active Patient Condition Routine Admission 01/13/25 05:29 Ordered Bedside Blood Glucose NOW Care 01/13/25 02:34 Active Translator Interpreter NOW Care 01/13/25 02:34 Active Continuous Pulse Oximetry NOW Care 01/13/25 02:34 Completed EKG (ED ONLY) *Do not use* NOW Care 01/13/25 02:34 Completed Avalos [Urinary Catheter] X1 Care 01/13/25 04:08 Active Head of Bed Elevation NOW Care 01/13/25 05:34 Active In and Out Catheter NEEDED Care 01/13/25 02:34 Active Insert IV NOW Care 01/13/25 02:34 Active NIH Stroke Scale now Care 01/13/25 02:34 Active NPO NOW Care 01/13/25 02:34 Active Neuro Check Q4H Care 01/13/25 05:34 Active Notify provider NEEDED Care 01/13/25 05:29 Active Nurse Swallow Screen x1 Care 01/13/25 02:34 Active Obtain weight X1 Care 01/13/25 05:29 Active Seizure precautions NEEDED Care 01/13/25 05:30 Active Vital Signs, Non-Routine Q4H Care 01/13/25 05:30 Ordered Vital Signs, Non-Routine Q4H Care 01/13/25 09:30 Ordered Vital Signs, Non-Routine Q4H Care 01/13/25 13:30 Ordered Vital Signs, Non-Routine Q4H Care 01/13/25 17:30 Ordered Vital Signs, Non-Routine Q4H Care 01/13/25 21:30 Ordered Consult to Neurology / Tele-Neurology Routine Cons 01/13/25 02:28 Active Consult to Neurology / Tele-Neurology Routine Cons 01/13/25 02:34 Active Consult to Neurology / Tele-Neurology Routine Cons 01/13/25 05:34 Active Referral Physical Therapy Routine Cons 01/13/25 05:34 Active Referral Speech Therapy Routine Cons 01/13/25 05:34 Active CA echo doppler complete Routine Exams 01/13/25 05:[address] angio stroke protocol Stat Exams 01/13/25 02:[address] stroke protocol Stat Exams 01/13/25 02:28 Taken CXRP [XR chest 1V portable] Stat Exams 01/13/25 04:14 Taken EKG (ED Only) Stat Exams 01/13/25 02:34 Ordered BNP [B-Type Natriuretic Peptide] Stat Lab 01/13/25 02:40 Completed Blood Culture (Lab) Stat Lab 01/13/25 03:12 Received CBC AM DRAW Lab 01/14/25 05:00 Ordered CBC AM DRAW Lab 01/15/25 05:00 Ordered CBC AM DRAW Lab 01/16/25 05:00 Ordered CBC Stat Lab 01/13/25 02:40 Completed Comprehensive Metabolic Panel AM DRAW Lab 01/14/25 05:00 Ordered Comprehensive Metabolic Panel AM DRAW Lab 01/15/25 05:00 Ordered Comprehensive Metabolic Panel AM DRAW Lab 01/16/25 05:00 Ordered Comprehensive Metabolic Panel Stat Lab 01/13/25 02:40 Completed Drug Screen,Urine Stat Lab 01/13/25 02:53 Completed HCG Titer if Positive Stat Lab 01/13/25 02:40 Completed Lactate (Lactic Acid) Stat Lab 01/13/25 02:40 Results Magnesium AM DRAW Lab 01/14/25 05:00 Ordered Magnesium AM DRAW Lab 01/15/25 05:00 Ordered Magnesium AM DRAW Lab 01/16/25 05:00 Ordered Magnesium Stat Lab 01/13/25 02:40 Completed Partial Thromboplastin Time AM DRAW Lab 01/14/25 05:00 Ordered Partial Thromboplastin Time Stat Lab 01/13/25 02:40 Completed Phosphorous AM DRAW Lab 01/14/25 05:00 Ordered Phosphorous AM DRAW Lab 01/15/25 05:00 Ordered Phosphorous AM DRAW Lab 01/16/25 05:00 Ordered Prothrombin Time with INR AM DRAW Lab 01/14/25 05:00 Ordered Prothrombin Time with INR Stat Lab 01/13/25 02:40 Completed Thyroid Stimulating Hormone Routine Lab 01/14/25 05:34 Ordered Troponin I Stat Lab 01/13/25 02:40 Completed Urinalysis Stat Lab 01/13/25 02:53 Completed Urine Culture Stat Lab 01/13/25 02:53 Received ACETAMINOPHEN 325 mg SUPP [Tylenol Supp] Med 01/13/25 05:46 Ordered 325 mg IN Q6H PRN Acetaminophen Tab [Tylenol Tab] Med 01/13/25 05:46 Once 325 mg PO X1 ONE Amiodarone [Cordarone] Med 01/13/25 09:00 Ordered 200 mg GT BID Atorvastatin Calcium [Lipitor] Med 01/13/25 21:00 Ordered 20 mg GT HS Docusate Sod [Colace] Med 01/13/25 05:46 Ordered 100 mg GT BID PRN Heparin Inj Med 01/13/25 09:00 Ordered 5,000 unit SC Q12H LORazepam [Ativan Inj] Med 01/13/25 03:20 Discontinued 2 mg .ROUTE .STK-MED ONE LORazepam [Ativan Inj] Med 01/13/25 03:26 Discontinued 2 mg IVP X1 ONE Levothyroxine Sodium [Synthroid] Med 01/13/25 09:00 Ordered 112 mcg GT QDAY Magnesium Sulfate 2 GM Ivpb [Magnesium Sulfate Ivpb] Med 01/13/25 04:02 Discontinued 2 gm in 50 ml IV X1 Magnesium Sulfate 4 GM Ivpb [Magnesium Sulfate Ivpb] Med 01/13/25 04:16 Active 4 gm in 50 ml IV X1 Metoprolol Tartrate [Lopressor] Med 01/13/25 09:00 Ordered 50 mg GT BID Ondansetron Inj [Zofran Inj] Med 01/13/25 02:27 Active 4 mg IV Q4HR PRN Piper/Tazo 3.375 gm Premix [Zosyn] Med 01/13/25 05:00 Discontinued 3.375 gm in 50 ml IV X1 Piper/Tazo 3.375 gm Premix [Zosyn] 50 ml Med 01/13/25 04:50 Pending IV Q12HR Sodium Chloride 0.9% 500 ml [Ns] 500 ml Med 01/13/25 05:31 Ordered IV 999 mls/hr levETIRAcetam INJ [Keppra Inj] Med 01/13/25 03:24 Discontinued 3,000 mg .ROUTE .STK-MED ONE levETIRAcetam INJ [Keppra Inj] Med 01/13/25 03:53 Discontinued 3,000 mg IVP X1 ONE levETIRAcetam INJ [Keppra Inj] Med 01/13/25 03:27 Discontinued 3,500 mg IVP X1 ONE levETIRAcetam INJ [Keppra Inj] Med 01/13/25 03:54 Discontinued 500 mg IVP X1 ONE levETIRAcetam LIQD [Keppra] Med 01/13/25 09:00 Ordered 500 mg GT BID Code Status Routine Oth 01/13/25 05:29 Ordered Oxygen Delivery NOW RT 01/13/25 02:34 Active Reevaluation(s) Reevaluation #1: Patient is protecting her airway. Blood pressure is 143/82 with a HR in the 70s. Time: 04:14 Vital Signs Vital signs: Vital Signs Pulse Rate 90 01/13/25 02:53 Respiratory Rate 16 01/13/25 02:53 Neuro Symptoms / Deficit MDM Narrative MDM Narrative:: 79-year-old female with history of hypertension, hypothyroidism, paroxysmal atrial fibrillation, history of acute right MCA stroke status post TNK, history of seizure disorder on Keppra 500 mg twice daily by report (but this has not been verified that she has actually been getting this at the institution) who presents by EMS from [facility] with multiple seizures. Patient had 30-second seizure at the senior care. A 30 second seizure with EMS that was resolved with0.8 Versed IV and an additional less than 1 minute seizure while in the emergency department the patient had a CT scan that shows The initial CT Angio report shows no occlusion and/or bleed. The patient is treated with 2 mg of Ativan secondary to 1 minute seizure noted in the emergency department. Daughter is at the bedside and she is updated completely with what is happening with her mother. Differential diagnosis includes breakthrough seizure, infection to include UTI, pneumonia, aspiration, but noncompliant with medications, arrhythmia, electrolyte abnormality, dehydration. We spoke spent multiple times trying to call the facility to see if the patient is actually getting the 500 mg twice daily. This has not been confirmed as of yet. Recommendations: -teleneurology states that if the patient has another seizure that she would have to start with a loading dose of Vimpat 200 mg and then 100 mg every 12. -They recommend continuing Keppra. They suggest that since she is having breakthrough seizures that she should either go to 1000 mg twice daily(if the patient has normal renal function) or 750 twice daily if the renal function is abnormal. -MRI -Workup to include infectious and any metabolic etiology Patient data External records reviewed:: [facility] previous records (HTN, HLD, hypothyroidism, paroxysmal A-fib, stroke with left-sided, right MCA thrombus s/p tnk, admitted to the ICU at the time for status epilepticus) Clinical information provided by:: EMS ([facility] nursing patient) Social determinants that could affect healthcare access:: none (History of stroke. custodial patient) Patient has the following chronic illnesses:: Dysphagia, hypertension, previous stroke, chronic renal sufficiency, right middle cerebral artery infarct epilepsy How is presenting disease/condition affected by chronic disease/condition?: exacerbated by Evaluation data The following diagnostics were reviewed and interpreted by me:: lab results, radiology exam(s) and EKG tracing(s) Lab and/or radiology exams considered but not ordered:: None Interpretation Summary: CBC is normal, Lactic Acid is elevated at 2.1, Magnesium is low at 0.9, Troponin is elevated at 0.105, BNP is normal, UA is positive for a UTI, according to my interpretation. EKG done at 0216, NSR, rate of 74, PVCs, nonspecific ST-T wave changes in V5 and V6, poor baseline, QTc: 407, according to my interpretation. --------- Telerad Preliminary Report Draft Patient: ANDRE LEVIN. Record#: [id number] Birthdate: 1945 Age/Sex: 79 / F [facility] Att[facility] Dr: Ordering Physician: Date of Service: Procedure(s): Accession Number(s): cc: ~ CT angiogram of the head and neck with intravenous contrast (axial sections with sagittal and coronal reformats). January 13, 2025 at 0240 hours Clinical History: Focal neuro deficit, stroke suspected. Technique: Helical axial sections with sagittal and coronal reformats of the head and neck were obtained with contrast. Iterative reconstruction technique was employed to reduce patient radiation exposure. 3D/MIP reformats are provided. Comparison: No prior study is available for comparison. Findings: Head: The internal carotid, middle and anterior cerebral arteries are patent bilaterally. The intracranial vertebral arteries are patent. The vertebrobasilar junction, basilar and posterior cerebral arteries are patent. No evidence of large vessel occlusion, critical stenosis or aneurysm. Neck: The aortic arch to the extent visualized as well as the origins of the right brachiocephalic, left common carotid, and left subclavian arteries are patent. The common carotid arteries, carotid bulbs, and internal and external carotid arteries are patent. The origins of the vertebral arteries are unremarkable. The right vertebral artery is dominant. No evidence of vascular occlusion, critical stenosis, dissection or aneurysm. The soft tissues of the neck are unremarkable. Degenerative changes of the imaged portions of the spine. No acute fractures. Impression: Head: No evidence of large vessel occlusion, critical stenosis or aneurysm. Neck: No evidence of vascular occlusion, critical stenosis, dissection or aneurysm. Report Electronically Signed By: Kuldeep Pang 01/13/2025 3:10:49 AM Medications / Prescriptions Medications or Prescriptions considered but not ordered:: None Medication administrations:: Medication Administration History Acetaminophen (Acetaminophen 325 Mg Tablet) 325 mg PO X1 ONE Stop: 01/13/25 05:47 Acetaminophen (Acetaminophen Supp 325 Mg Supp) 325 mg IN Q6H PRN PRN Reason: fever 100 or pain 1-3 Stop: 02/12/25 05:59 Amiodarone HCl (Amiodarone Hcl 200 Mg Tablet) 200 mg GT BID [facility] Stop: 02/12/25 08:59 Atorvastatin Calcium (Atorvastatin Calcium 10 Mg Tablet) 20 mg GT HS JOHNY Stop: 02/12/25 20:59 Docusate Sodium (Docusate Sod Liqd 100 Mg/10 Ml Udc) 100 mg GT BID PRN; Protocol PRN Reason: constipation Stop: 02/12/25 08:59 Heparin Sodium (Porcine) (Heparin Sod Inj 5000 Unit/Ml Vial) 5,000 unit SC Q12H JOHNY Stop: 01/27/25 08:59 Magnesium Sulfate (Magnesium Sulfate Ivpb) 4 gm in 50 mls @ 12.5 mls/hr IV X1 ONE Stop: 01/13/25 08:15 Last Admin: 01/13/25 04:26 Dose: 12.5 mls/hr Documented By: EF Piperacillin/Tazobactam/Dextrose (Zosyn) 50 mls @ 100 mls/hr IV Q12HR JOHNY Stop: 01/20/25 04:49 Sodium Chloride (Ns) 500 mls @ 999 mls/hr IV .Q31M ONE Stop: 01/13/25 06:01 Levetiracetam (Levetiracetam Liqd 500 Mg/5 Ml Udc) 500 mg GT BID JOHNY Stop: 02/12/25 08:59 Levothyroxine Sodium (Levothyroxine Sodium 112 Mcg Tablet) 112 mcg GT QDAY JOHNY Stop: 02/12/25 08:59 Metoprolol Tartrate (Metoprolol Tartrate 25 Mg Tablet) 50 mg GT BID JOHNY Stop: 02/12/25 08:59 Ondansetron HCl (Ondansetron Inj 2 Mg/Ml Inj 2 Ml) 4 mg IV Q4HR PRN PRN Reason: NAUSEA OR VOMITING Stop: 02/12/25 02:26 Discontinued Medications Magnesium Sulfate (Magnesium Sulfate Ivpb) 2 gm in 50 mls @ 25 mls/hr IV X1 ONE Stop: 01/13/25 06:01 Last Admin: 01/13/25 04:49 Dose: Not Given Documented By: EF Non-Admin Reason: Cancelled by Provider Piperacillin/Tazobactam/Dextrose (Zosyn) 3.375 gm in 50 mls @ 100 mls/hr IV X1 ONE Stop: 01/13/25 05:29 Last Admin: 01/13/25 05:20 Dose: 100 mls/hr Documented By: EF Levetiracetam (Levetiracetam Inj 100 Mg/Ml Vial 5ml) 3,500 mg IVP X1 ONE Stop: 01/13/25 03:28 Last Admin: 01/13/25 04:49 Dose: Not Given Documented By: EF Non-Admin Reason: Cancelled by Provider Levetiracetam (Levetiracetam Inj 100 Mg/Ml Vial 5ml) Confirm Administered Dose 3,000 mg .ROUTE .STK-MED ONE Stop: 01/13/25 03:25 Last Admin: 01/13/25 03:51 Dose: Not Given Documented By: EF Non-Admin Reason: Override Medication Levetiracetam (Levetiracetam Inj 100 Mg/Ml Vial 5ml) 3,000 mg IVP X1 ONE Stop: 01/13/25 03:54 Last Admin: 01/13/25 03:40 Dose: 3,000 mg Documented By: EF Levetiracetam (Levetiracetam Inj 100 Mg/Ml Vial 5ml) 500 mg IVP X1 ONE Stop: 01/13/25 03:55 Last Admin: 01/13/25 04:26 Dose: 500 mg Documented By: EF Lorazepam (Lorazepam 2 Mg/Ml Vial) 2 mg IVP X1 ONE Stop: 01/13/25 03:27 Last Admin: 01/13/25 03:31 Dose: 2 mg Documented By: EF Comments: overridden medication patient actively seizing Lorazepam (Lorazepam 2 Mg/Ml Vial) Confirm Administered Dose 2 mg .ROUTE .STK-MED ONE Stop: 01/13/25 03:21 Last Admin: 01/13/25 03:52 Dose: Not Given Documented By: EF Non-Admin Reason: Override Medication as above Consultations Consultation(s) initiated? (list below): Yes Consultation #1 (Physician, Specialty, Details): Telestroke neuro on patient arrival. Time: : Consultation #2 (Physician, Specialty, Details): Discussed case with [Dr. Richardson, attending Dr. Patel] from Hospitalist service regarding admission. Discussed patients ED course, exam findings, labs, and radiology results. The Hospitalist [agrees] to accept the patient for admission. Diagnosis Neuro Differential Diagnosis: convulsions, delirium, subarachnoid hemorrhage, cerebrovascular accident and other (TIA, UTI, electrolyte abnormality, status epilepticus, seizure.) Most likely diagnosis given after review of the tests above:: see clinical impression below Admission Indicated Admission indicated?: indicated Admission Request Was there a request for admission?: Yes Admission Attestation Admission request attestation: Discussed case with [] from Hospitalist service regarding admission. Discussed patients ED course, exam findings, labs, and radiology results. The Hospitalist [agrees,declines] to accept the patient for admission. Disposition Plan Disposition Plan: Admit Critical Care Time Critical Care Time Critical Care Time: Yes Total Critical Care Time (min.): 45 Attestation: The high probability of sudden, clinically significant deterioration in the patient?s condition required the highest level of my preparedness to intervene urgently. The services I provided to this patient were to treat and/or prevent clinically significant deterioration. Services included the following: chart data review, reviewing nursing notes and/or old charts, documentation time, database reporting consultant collaboration regarding findings and treatment options, medication orders and management, direct patient care, vital sign assessments and ordering, interpreting and reviewing diagnostic studies and lab tests. Aggregate critical care time includes only time during which I was engaged in work directly related to the patient?s care, as described above, whether at bedside or elsewhere in the Emergency Department. It did not include time spent performing other reported procedures or the services of residents, students, nurses or physician assistants. Discharge Plan Plan Patient Disposition: Admit Acute Care w/in Hospital Patient condition on transfer: Stable Prescriptions/Referrals Prescriptions/Med Rec: No Action docusate sodium [Colace] 100 mg capsule 100 mg PO Q12HR PRN (Reason: constipation ) Rx Instructions: Hold for loose stools ezetimibe 10 mg tablet 10 mg feeding tube .qday Patient Comments: TAKE 1 TABLET BY MOUTH EVERY DAY levetiracetam [Keppra] 100 mg/mL solution 500 mg PO Q12H lidocaine 5 % adhesive patch,medicated 1 patch topical Q24H Rx Instructions: leave on most painful area for up to 12 hrs CalaSoothe 0.44-20.6 % cream in packet 1 applic topical Q6HR PRN (Reason: pain) metoprolol tartrate [Lopressor] 50 mg tablet 50 mg PO BID sennosides [senna] 8.6 mg tablet 8.6 mg PO Q12H PRN (Reason: constipation) tizanidine 2 mg capsule 2 mg PO HS acetaminophen [Tylenol] 325 mg tablet 650 mg PO Q4H PRN (Reason: pain) amiodarone 200 mg Tablet 200 mg G-tube BID 30 Days Qty: 60 0RF levothyroxine 112 mcg capsule 112 mcg PO ACBR Qty: 30 0RF nifedipine 30 mg Tablet Extended Release 24hr 60 mg PO QDAY 30 Days Qty: 60 0RF atorvastatin 20 mg Tablet 40 mg PO HS 30 Days Qty: 60 0RF ciprofloxacin HCl 250 mg tablet 250 mg PO BID Qty: 4 0RF Referrals: Will Duron MD [Primary Care Provider] - In 1 week Problem List Clinical Impression: Status epilepticus, Hypomagnesemia, AMS (altered mental status), Elevated troponin Patient/Caregiver Discharge Instructions Print Language: Sammarinese Stand Alone Forms: Kaycee Award Info., Patient Portal Info Letter
--- NOTE | 2025-01-13 02:28 | XR_ITS ---
Examination: CT brain head without contrast. 2-D sagittal coronal reconstructions Date and time of exam:January 13, 2025 0229 hrs. Indications: Stroke protocol onset focal neurologic deficit today CTDI: vol (mGy): 44.1 DLP: (mGycm):875 Technique: Multiple CT axial sections of the brain have been obtained, 5 mm slice thickness. Contrast has not been administered. 2-D sagittal, coronal reconstructions have been obtained Low dose protocols were performed. One or more of the following dose reduction techniques were used; automated exposure control, adjustment of the mA and/or KV according to patient size, use of iterative reconstruction technique. Findings: No significant ventricular enlargement. Right frontal infarct, which may be subacute Intra-axial or extra-axial hemorrhage density is not seen. No mass effect or midline shift Basal cisterns are not remarkable. Fourth ventricle is midline. Cranial vault intact. Impression: Negative for acute hemorrhage Right frontal infarct, which may be subacute, noted on the December 17, 2024 exam Recommend brain MRI follow-up
--- NOTE | 2025-01-13 02:28 | XR_ITS ---
Examination: CTA carotids with intravenous contrast CTA brain, head with intravenous contrast. 2-D sagittal, coronal reconstructions. 3-D reconstructions. Exam date and time: January 13, 2025 0340 hrs. Indications: Stroke alert today, onset focal neurologic deficit CTDI: vol (mGy) 10.4 DLP: (mGycm) 395 Technique: Multiple CTA axial brain, head carotid images post intravenous contrast injection 75 cc, [id number]. 2-D sagittal, coronal reconstructions. 3-D reconstructions, 3-D post processing including vascular maximum intensity projection images. Low dose protocols were performed. One or more of the following dose reduction techniques were used; automated exposure control, adjustment of the mA and/or KV according to patient size, use of iterative reconstruction technique. Findings: No common carotid carotid bifurcation or internal carotid artery stenoses Dominant right vertebral artery with no critical stenoses No cerebral large vessel arterial occlusions, thrombus, dissection or cerebral artery off the Impression: No significant neck arterial stenoses No cerebral large vessel arterial occlusions or thrombus
--- NOTE | 2025-01-13 02:34 | EKG_ITS ---
[facility] Test Date: 2025-01-13 Pat Name: ANDRE LEVIN Department: Room: - Gender: Female Entry Level Paralegal: : 1945 Requested By: Amy Suazo Order Number: [id number] Reading MD: Amy Suazo Measurements Intervals [place] Rate: 89 P: 72 ND: 208 QRS: 69 QRSD: 85 T: 62 QT: 373 QTc: 456 Interpretive Statements SINUS RHYTHM NONSPECIFIC ST ELEVATION [0.05+ mV ST ELEVATION] Compared to ECG 12/17/2024 08:34:23 ST (T wave) deviation now present /store/S0/[id number]
[2025-01-13 02:56] LABS: Lactate (Lactic Acid) 2.1 mMol/L (0.4-2.0)
[2025-01-13 02:57] LABS: Basophils # (Auto) 0.1 Thou/mm3 (0.0-0.2); Basophils % (Auto) 1 % (0-2.5); Eosinophils % (Auto) 1 % (0-10); Hematocrit 42.6 % (36.0-46.0); Hemoglobin 14.3 g/dL (12.0-16.0); Immature Granulocytes % (Auto) 0 % (0-0); Immature Granulocytes Auto 0.02 Thou/mm3 (0.00-0.00); Lymphocytes % (Auto) 15 % (10-50); Mean Corpuscular HGB Conc 33.6 g/dl (31.0-37.0); Mean Corpuscular Hemoglobin 29.7 pg (25.0-35.0); Mean Corpuscular Volume 88 fL (80-100); Monocytes # (Auto) 0.4 Thou/mm3 (0.0-0.8); Monocytes % (Auto) 6 % (0-12); Neutrophils # (Auto) 5.5 Thou/mm3 (1.8-7.7); Neutrophils % (Auto) 78 % (37-80); Nucleated Red Blood Cell % 0 /100 WBC (0); Platelet Count 365 Thou/mm3 (140-440); RDW Standard Deviation 43.8 fL (36.4-46.3); Red Blood Count 4.82 Miln/mm3 (4.00-5.20); White Blood Count 7.1 Thou/mm3 (3.6-11.0)
--- NOTE | 2025-01-13 03:11 | PRELIM_ITS ---
CT angiogram of the head and neck with intravenous contrast (axial sections with sagittal and coronal reformats). January 13, 2025 at 0240 hours Clinical History: Focal neuro deficit, stroke suspected. Technique: Helical axial sections with sagittal and coronal reformats of the head and neck were obtained with contrast. Iterative reconstruction technique was employed to reduce patient radiation exposure. 3D/MIP reformats are provided. Comparison: No prior study is available for comparison. Findings: Head: The internal carotid, middle and anterior cerebral arteries are patent bilaterally. The intracranial vertebral arteries are patent. The vertebrobasilar junction, basilar and posterior cerebral arteries are patent. No evidence of large vessel occlusion, critical stenosis or aneurysm. Neck: The aortic arch to the extent visualized as well as the origins of the right brachiocephalic, left common carotid, and left subclavian arteries are patent. The common carotid arteries, carotid bulbs, and internal and external carotid arteries are patent. The origins of the vertebral arteries are unremarkable. The right vertebral artery is dominant. No evidence of vascular occlusion, critical stenosis, dissection or aneurysm. The soft tissues of the neck are unremarkable. Degenerative changes of the imaged portions of the spine. No acute fractures. Impression: Head: No evidence of large vessel occlusion, critical stenosis or aneurysm. Neck: No evidence of vascular occlusion, critical stenosis, dissection or aneurysm. Report Electronically Signed By: Kuldeep Pang 01/13/2025 3:10:49 AM [EST]
[2025-01-13 03:20] LABS: B-Type Natriuretic Peptide 99 pg/mL (0-100)
[2025-01-13] MEDS: LORazepam 2 MG/ML VIAL IVP (03:31)
[2025-01-13] MEDS: levETIRAcetam INJ 100 MG/ML VIAL 5ML 3000 MG IVP (03:40)
[2025-01-13 03:41] LABS: Alanine Aminotransferase 17 U/L (10-49); Albumin, Serum 3.7 gm/dL (3.4-4.8); Albumin/Globulin Ratio 1.2 (1.2-2.2); Alkaline Phosphatase 82 U/L (46-116); Anion Gap 11 (7-16); Aspartate Amino Transferase 33 U/L (0-34); BUN/Creatinine Ratio 9 Ratio (12-20); Bilirubin,Total 0.4 mg/dL (0.3-1.2); Blood Urea Nitrogen 11 mg/dL (9-23); Calcium 9.9 mg/dL (8.3-10.6); Calcium (Corrected) 10.1 mg/dL (8.5-10.1); Carbon Dioxide 22.6 mMol/L (20.0-31.0); Chloride 102 mMol/L (98-107); Creatinine (Component) 1.2 mg/dL (0.6-1.3); Globulin 3.1 gm/dL (2.3-3.5); Glucose 120 mg/dL (74-106); Osmolality,Calculated 272 (275-295); Potassium 4.1 mMol/L (3.4-5.1); Sodium 136 mMol/L (136-145); Total Protein 6.8 gm/dL (5.7-8.2); eGFR 46 See Note
[2025-01-13 03:42] LABS: HCG Titer if Positive Negative
[2025-01-13 03:44] LABS: Magnesium 0.9 mg/dL (1.6-2.6); Troponin I 0.105 ng/mL (0.0-0.045)
[2025-01-13 04:14] LABS: Collection Type, Urine Catheter
--- NOTE | 2025-01-13 04:14 | XR_ITS ---
Examination: AP chest single view Technique one AP portable semiupright chest single view Exam date and time: January 13, 2025 0326 hrs. Comparison December 13, 2024 Indications: Seizures today Findings: Normal heart size. No aspiration pneumonia. Significant osteopenia Impression: No aspiration pneumonia
[2025-01-13 04:21] LABS: Bacteria,Urine Rare; Bilirubin,Urine Negative (Negative); Blood,Urine Negative (Negative); Clarity,Urine Turbid (Clear/Hazy); Color,Urine Yellow (Lt Yel-Yel); Glucose, Urine Negative (Negative); Hyaline Casts,Urine < 1 /hpf (0-1); Ketones,Urine Negative (Negative); Leukocyte Esterase,Urine Positive (Negative); Nitrite,Urine Positive (Negative); Protein,Urine 1+ (Neg - Trace); RBC,Urine 5 /hpf (0-3); Specific Gravity,Urine 1.024 (1.001-1.035); Squamous Epithelial Cell,Urine < 1 /hpf (0-5); Urobilinogen,Urine Negative mg/dL (0.0-1.0); WBC,Urine 144 /hpf (0-5)
[2025-01-13 04:22] LABS: INR 1.2 (0.9-1.3); Prothrombin Time 12.5 Seconds (9.0-12.2)
[2025-01-13] MEDS: Magnesium Sulfate 4 GM Ivpb 4 GM/50 ML BAG IV (04:26)
[2025-01-13] MEDS: levETIRAcetam INJ 100 MG/ML VIAL 5ML 500 MG IVP (04:26)
[2025-01-13 04:31] LABS: Amphetamine/Methamp Scrn,U Negative (Negative); Barbiturate Screen,Urine Negative (Negative); Benzodiazepines Screen,Urine Positive (Negative); Benzoylecgonine Screen, Ur Negative (Negative); Fentanyl Screen,Urine Negative (Negative); Opiate Screen,Urine Negative (Negative); THC Screen,Urine Negative (Negative)
[2025-01-13] MEDS: PIPER/TAZO 3.375 GM PREMIX 3.375 GM/50 ML BAG IV (05:20)
--- NOTE | 2025-01-13 05:34 | ECHO_ITS ---
Transthoracic Echo Report Ht (in): 62 Wt (lb): 136 Exam Location: Echo Lab Status: Inpatient [employer] Machine Operator: Shahla Chavira Indications: Procedure Performed: BP: 133 / 95 HR: Technical Quality: Technically difficult study MEASUREMENTS (Male / Female) Normal Values 2D ECHO LV Diastolic Diameter PLAX 2.9 cm 4.2 - 5.9 / 3.9 - 5.3 cm LV Systolic Diameter PLAX 2.0 cm IVS Diastolic Thickness 1.0 cm 0.6 - 1.0 / 0.6 - 0.9 cm LVPW Diastolic Thickness 1.1 cm 0.6 - 1.0 / 0.6 - 0.9 cm LV Relative Wall Thickness 0.7 LVOT Diameter 1.5 cm Aortic Root Diameter 2.5 cm LA Systolic Diameter LX 2.4 cm 3.0 - 4.0 / 2.7 - 3.8 cm LA Volume Index 13.5 cm?/m? 16 - 28 cm?/m? DOPPLER AV Peak Velocity 83.2 cm/s AV Peak Gradient 2.8 mmHg AV Mean Gradient 1.0 mmHg AV Velocity Time Integral 17.1 cm LVOT Peak Velocity 49.5 cm/s LVOT Peak Gradient 1.0 mmHg LVOT Velocity Time Integral 12.8 cm AV Area Cont Eq vti 1.3 cm? AV Area Cont Eq pk 1.1 cm? MV Area PHT 2.8 cm? Mitral E Point Velocity 39.8 cm/s Mitral A Point Velocity 66.0 cm/s Mitral E to A Ratio 0.6 LV E' Lateral Velocity 5.7 cm/s Mitral E to LV E' Lateral Ratio 7.0 LV E' Septal Velocity 6.1 cm/s Mitral E to LV E' Septal Ratio 6.5 PV Peak Velocity 77.4 cm/s PV Peak Gradient 2.4 mmHg FINDINGS Left Ventricle Normal left ventricular size, wall thickness, systolic function with no obvious regional wall motion abnormalities. Normal left ventricular diastolic filling pattern for age. The ejection fraction is visually estimated at 55-60 %. Right Ventricle The right ventricle is normal in size and systolic function. Left Atrium The left atrium is normal by two-dimensional, color flow and Doppler imaging with no structural abnormalities, no thrombus formation present. Right Atrium The right atrium is normal by two-dimensional imaging, color flow and Doppler imaging with no structural abnormalities, no thrombus formation present. Atrial Septum The interatrial septum appears normal with no evidence of a shunt. Aorta The aorta is normal by two-dimensional, color flow and Doppler interrogation. Mitral Valve The mitral valve is normal by two-dimensional, color flow and Doppler interrogation. There is no significant mitral valve regurgitation, stenosis or prolapse. Aortic Valve The aortic valve is trileaflet and normal by two-dimensional, color flow and Doppler interrogation. There is no significant aortic valve regurgitation. Tricuspid Valve The tricuspid valve is normal by two-dimensional, color flow and Doppler interrogation. There is no significant tricuspid valve regurgitation. Pulmonic Valve The pulmonic valve is not well visualized. There is no significant pulmonic valve regurgitation. Vessels Inferior vena cava not well visualized. Pericardium The pericardium is normal by two-dimensional imaging. There is no significant pericardial effusion. CONCLUSIONS Indication: Stroke cardiac structures suboptimally visualized Normal LV size and systolic function. Estimated EF 55-60 %. Grade I diastolic dysfunction. RV is normal in size and systolic function. No significant valvular abnormalities. Rosalind Hunt (Electronically Signed) Final Date: 14 January 2025 08:57
--- NOTE | 2025-01-13 05:53 | ESHP_ITS ---
<Statement entered by Destinee Patel MD - 01/15/25 04:34> I reviewed above note and agree with findings and plans. I have also personally examined the patient with medicine team and went over assessment and plan with medical team including integrated marketing intern and resident physician. Documentation for date of: 01/13/25 HPI History of Present Illness History of present illness: HPI is limited as pt is not awake, and is poor historian. HPI conducted through chart review Ade is a 79 y/o female with PMHx of HTN, HLD, hypothyroidism, chronic afib (paroxysmal?, not on A/C), CVA (two times, October 2024, and 2024, now wheel- chair bound), seizures, PEG who comes in from [facility] for an evaluation of seizure lasted for about 30 seconds. Patient apparently had episode of a seizure at [facility] around 1:40 AM, lasted for about 30 seconds and is now status epilepticus. She was given 0.8 mg of Versed in ambulance. She also had seizure while in the ambulance and also seizure with teleneuro. She has a known history of seizures and is on Keppra. She also has a PEG tube in which it was given for poor oral intake and dysphagia, however patient's daughter said that she is on a mechanically altered diet and eats food at times. Patient is currently status epilepticus and unable to answer questions at this time. ED course: Patient came in the ED with a heart rate of 90, respiratory of 16. She was worked up was found to have a white count of 7.1, hemoglobin 14, sodium 136, potassium 4.1, chloride 102, bicarb 22, BUN/creatinine 1.2, lactate 2.1, magnesium 0.9, troponin 0.105. Urinalysis showed 144 white cells, rare bacteria, leukocyte esterase positive, nitrate positive. U tox showed benzos positive. Patient was given 2 mg of Ativan, 3.5 g of Keppra, 6 g of magnesium and Zosyn x 1. Patient was consulted and patient was admitted to floors. Past medical history: As above Surgical history: None Allergies: Codeine, pravastatin, promethazine, Bactrim Medicines: Amio, Lipitor, Ezetimibe, Keppra, Synthroid, metoprolol tartrate, nifedipine, and number of laxatives including milk of mag, senna, Colace, Dulcolax. Family history: Family history significant for stroke, diabetes, heart disease. Social history: Born and raised in [place], has never drink, never use drugs, no smoking history. Review of Systems Review of Systems Narrative Review of Systems: 12 point ROS limited as patient is poor historian Exam Vital Signs Pulse Resp 90 16 01/13/25 02:53 01/13/25 02:53 Narrative Exam General: AAOx0 patient is status epilepticus, not responsive to sternal rub, older female, pale, frail HEENT: Dry mucous membranes, conjunctiva clear, EOMI, PERRLA, Cardiovascular: Ejection systolic murmur heard over upper sternal border radial pulses +2 bilat, RRR Pulmonary: CTAB bilat no cough, no wheezing GI: No tenderness to light or deep palpitation, no guarding, rigidity, rebound tenderness or distension, G-tube present : Avalos catheter present Extremities: No presence of trace or pitting edema in lower extremities bilaterally, dorsalis pedis pulses +2 bilaterally Neuro: AAOx0 Results: Labs 01/13/25 02:40 01/13/25 02:40 Labs: Short CBC 01/13/25 Range/Units 02:40 WBC 7.1 (3.6-11.0) Thou/mm3 Hgb 14.3 (12.0-16.0) g/dL Hct 42.6 (36.0-46.0) % Plt Count 365 (140-440) Thou/mm3 BMP 01/13/25 02:40 Sodium 136 Potassium 4.1 Chloride 102 Carbon Dioxide 22.6 BUN 11 Creatinine 1.2 Glucose 120 H Calcium 9.9 Cardiac Enzymes 01/13/25 Range/Units 02:40 Troponin I 0.105 H* (0.0-0.045) ng/mL Liver Function 01/13/25 Range/Units 02:40 Total Bilirubin 0.4 (0.3-1.2) mg/dL AST 33 (0-34) U/L ALT 17 (10-49) U/L Alkaline Phosphatase 82 (46-116) U/L Albumin 3.7 (3.4-4.8) gm/dL Urine 01/13/25 Range/Units 02:53 Urine Color Yellow (Lt Yel-Yel) Urine Clarity Turbid A (Clear/Hazy) Urine pH 6.0 (5.0-7.0) Ur Specific [place] 1.024 (1.001-1.035) Urine Protein 1+ A (Neg - Trace) Urine Glucose (UA) Negative (Negative) Quality Measures Quality Measures none Advance care planning discussed with:: patient and child Medications Home Medications and Allergies Home Medications ?Medication ?Instructions ?Recorded ?Confirmed ?Type acetaminophen 325 mg tablet 650 mg PO Q4H PRN pain 08/2812/14/24 History (Tylenol) docusate sodium 100 mg capsule 100 mg PO Q12HR PRN con stipation 12/14/24 12/14/24 History (Colace) ezetimibe 10 mg tablet 10 mg feeding tube .qday hig h 12/14/24 12/14/24 History cholesterol levetiracetam 100 mg/mL oral 500 mg PO Q12H 12/14/24 0 12/14/24 History solution (Keppra) lidocaine 5 % topical patch 1 patch topical Q24H 12/1412/14/24 History menthol 0.44 %-zinc oxide 20.6 % 1 applic topical Q6HR PRN pain 12/14/24 12/14/24 History topical cream packet (CalaSoothe) metoprolol tartrate 50 mg tablet 50 mg PO BID 12/14/24 12/14/24 History (Lopressor) sennosides 8.6 mg tablet (senna) 8.6 mg PO Q12H PRN co nstipation 12/14/24 12/14/24 History tizanidine 2 mg capsule 2 mg PO HS 12/14/24 12/14/24 History Held on 12/18/24. Instructions: Resume on 01/15/25. Allergies Allergy/AdvReac Type Severity Reaction Status Date / Time codeine Allergy Verified 12/13/24 19:10 pravastatin Allergy Verified 12/13/24 19:10 promethazine (From Phenergan) Allergy Verified 12/13/24 19:10 sulfamethoxazole (From Allergy Verified 12/13/24 19:10 Bactrim) trimethoprim (From Bactrim) Allergy Verified 12/13/24 19:10 Visit Medications Acetaminophen (Acetaminophen 325 Mg Tablet) 325 mg PO X1 ONE Stop: 01/13/25 05:47 Acetaminophen (Acetaminophen Supp 325 Mg Supp) 325 mg ME Q6H PRN PRN Reason: fever 100 or pain 1-3 Stop: 02/12/25 05:59 Amiodarone HCl (Amiodarone Hcl 200 Mg Tablet) 200 mg GT BID [facility] Stop: 02/12/25 08:59 Atorvastatin Calcium (Atorvastatin Calcium 10 Mg Tablet) 20 mg GT HS [facility] Stop: 02/12/25 20:59 Docusate Sodium (Docusate Sod Liqd 100 Mg/10 Ml Udc) 100 mg GT BID PRN; Protocol PRN Reason: constipation Stop: 02/12/25 08:59 Heparin Sodium (Porcine) (Heparin Sod Inj 5000 Unit/Ml Vial) 5,000 unit SC Q12H JOHNY Stop: 01/27/25 08:59 Magnesium Sulfate (Magnesium Sulfate Ivpb) 4 gm in 50 mls @ 12.5 mls/hr IV X1 ONE Stop: 01/13/25 08:15 Last Admin: 01/13/25 04:26 Dose: 12.5 mls/hr Piperacillin/Tazobactam/Dextrose (Zosyn) 50 mls @ 100 mls/hr IV Q12HR [facility] Stop: 01/20/25 04:49 Sodium Chloride (Ns) 500 mls @ 999 mls/hr IV .Q31M ONE Stop: 01/13/25 06:01 Levetiracetam (Levetiracetam Liqd 500 Mg/5 Ml Udc) 500 mg GT BID [facility] Stop: 02/12/25 08:59 Levothyroxine Sodium (Levothyroxine Sodium 112 Mcg Tablet) 112 mcg GT QDAY [facility] Stop: 02/12/25 08:59 Metoprolol Tartrate (Metoprolol Tartrate 25 Mg Tablet) 50 mg GT BID [facility] Stop: 02/12/25 08:59 Ondansetron HCl (Ondansetron Inj 2 Mg/Ml Inj 2 Ml) 4 mg IV Q4HR PRN PRN Reason: NAUSEA OR VOMITING Stop: 02/12/25 02:26 Discontinued Medications Magnesium Sulfate (Magnesium Sulfate Ivpb) 2 gm in 50 mls @ 25 mls/hr IV X1 ONE Stop: 01/13/25 06:01 Last Admin: 01/13/25 04:49 Dose: Not Given Piperacillin/Tazobactam/Dextrose (Zosyn) 3.375 gm in 50 mls @ 100 mls/hr IV X1 ONE Stop: 01/13/25 05:29 Last Admin: 01/13/25 05:20 Dose: 100 mls/hr Levetiracetam (Levetiracetam Inj 100 Mg/Ml Vial 5ml) 3,500 mg IVP X1 ONE Stop: 01/13/25 03:28 Last Admin: 01/13/25 04:49 Dose: Not Given Levetiracetam (Levetiracetam Inj 100 Mg/Ml Vial 5ml) 3,000 mg IVP X1 ONE Stop: 01/13/25 03:54 Last Admin: 01/13/25 03:40 Dose: 3,000 mg Levetiracetam (Levetiracetam Inj 100 Mg/Ml Vial 5ml) 500 mg IVP X1 ONE Stop: 01/13/25 03:55 Last Admin: 01/13/25 04:26 Dose: 500 mg Lorazepam (Lorazepam 2 Mg/Ml Vial) 2 mg IVP X1 ONE Stop: 01/13/25 03:27 Last Admin: 01/13/25 03:31 Dose: 2 mg Assessment & Plan Plan Assessment Ade is a 79 y/o female with PMHx of HTN, HLD, hypothyroidism, chronic afib (paroxysmal?, not on A/C), CVA (two times, October 2024, and 2024, now wheel- chair bound), seizures, PEG who comes please evaluate for multiple seizures and CVA rule out. #Acute encephalopathy #Seizures #Status epilepticus #Hypomagnesemia #CVA rule out #History of previous strokes Patient having encephalopathy likely related to seizures and status epilepticus Patient had 1 episode of seizure at [facility] the last for about 30 seconds, 1 while in the ambulance, and 1 with teleneuro, fitting criteria for status epilepticus Patient was given 3.5 g of Keppra, 2 mg Ativan, 6 g of magnesium Stroke needs to be ruled out for patient considering patient has multiple risk factors including hypertension, hyperlipidemia, A-fib Head CT pending Neck head CTA shows no large vessel occlusions or stenosis Plan: ? Neurology consulted, appreciate recs ? MR stroke protocol ? Speech therapy ? Echo ? Neurochecks every 4 hours ? Head of bed elevation 30 degrees ? DVT prophylaxis ? Bedrest ? Keppra 750 mg liquid twice daily, first dose tonight ? Seizure precautions ? Bedrest ? Permissive hypertension ? If patient were to seize again load with Vimpat [id number], followed by Vimpat 100mg BID, per teleneuro ? Lipitor 20 mg ? Trend electrolytes ? Follow-up Creatine kinase #UTI Urinalysis showed 144 white cells, rare bacteria, leukocyte esterase positive, nitrate positive. U tox showed benzos positive Hx of pansenstive E Coli Plan: ? Follow-up urine culture ? Continue with 1 g Rocephin IV daily #Chronic A-fib #Elevated troponins #Hx of UE DVT Unsure if it is paroxysmal Troponin 0.105 Does not appear to be on blood thinners at this time Plan: ? Resumed home Amio 200 mg twice daily via G-tube ? Trend troponin #History of hypertension #History of hyperlipidemia Most recent lipid panel shows total cholesterol 175, triglycerides 208, LDL 93 Plan: ? Allowing for permissive hypertension ? Resumed home Lipitor 20 mg ? Resumed home Lopressor 50 mg twice daily #History of hypothyroidism TSH ~60 in 2024 Plan: ? Resumed home Synthroid 112 mcg daily ? Follow up TSH and Free T4 #DM? Plan: ? Follow up A1c #History of PEG tube Pt also has mechanically altered diet Plan: ? RD consult ? Follow-up speech eval #Health Maintenance Disposition: Telemetry DVT prophylaxis: Heparin q12h GI prophylaxis: Not indicated at this time Diet: Pending Speech therapy and RD recs CODE STATUS: Full Patient seen and care discussed with my attending physician, Dr. Jorge Barba, PGY-1
[2025-01-13 05:54] LABS: Reflex Lactate? Y
[2025-01-13 06:28] LABS: Lactic Acid, 3 HR 1.7 mMol/L (0.4-2.0)
[2025-01-13] MEDS: SODIUM CHLORIDE 0.9% 500 ML 500 ML 999 ML IV (06:32)
[2025-01-13 07:41] LABS: Glucose Estimated Average 91 mg/dL (80-131); Hemoglobin A1C 4.8 % Hgb (4.8-6.0)
--- NOTE | 2025-01-13 08:19 | PC.NURSE ---
Rn at bedside speaking with patient daughter. Per daughter patient was administered Ativan and patient has not been able to awaken and respond since. Per daughter patient usually takes eats mechanical soft diet at [facility], patient does have a GT that has not been used in 3wks and has not been flushed by staff at [facility], per daughter prefers RN not to administer levothyroxine at this time until patient fully awakens and does not want RN to use GT for administration of med.
[2025-01-13 08:26] LABS: Creatine Kinase 49 U/L (34-171); Free T4 (Free Thyroxine) 2.16 ng/dL (0.89-1.76)
[2025-01-13 10:50] LABS: Magnesium 2.4 mg/dL (1.6-2.6); Phosphorous 3.6 mg/dL (2.4-5.1); Thyroid Stimulating Hormone 6.14 uIU/mL (0.55-4.78)
[2025-01-13 11:16] LABS: Troponin I 0.141 ng/mL (0.0-0.045)
--- NOTE | 2025-01-13 11:35 | PCS.ST ---
ST attempted swallow evaluation, however, pt is asleep after receiving Ativan. RN asked to contact ST if pt is alert later today, otherwise evaluation will be deferred for tomorrow.
[2025-01-13] MEDS: cefTRIAXone 1,000 MG in SODIUM CHLORIDE 0.9% (Popper) 50 ML 100 MG IV (11:54)
--- NOTE | 2025-01-13 12:01 | ESPR_ITS ---
<Statement entered by Trace Varner MD - 01/13/25 17:53> Patient is admitted overnight. She was seen and examined at the bedside. Patient was given Ativan and Keppra 3.5 g due to status epilepticus therefore she was responding to sternal rub and mildly opening her eyes. Patient is admitted for workup of seizures which were recently diagnosed a week ago and stroke. She was also found to have upper extremity DVT however it was nonocclusive and superficial vein therefore anticoagulation was not started. Currently awaiting MRI brain without contrast, neurology recommendations, EEG, echocardiogram with bubble study. Additionally, patient has UTI we will follow- up with blood cultures and urine cultures. Lactic acid down trended. Patient's TSH and FT4 were found abnormal as both were elevated therefore Synthroid was held. Patient does have a PEG tube placed which needs to flushed to be use for feeding. Per patient's daughter, patient was eating at [facility] therefore will follow-up with speech eval. however, later this evening, patient's daughter reported that patient had an episode of vomiting due to PEG tube feedings therefore we reduced the feeding rate to 20 cc and not to be increased every 8 hourly. Will closely monitor for any nausea or vomiting. Restarted IV fluid at 75 cc/h. All labs and orders were reviewed. I saw and examined the patient, and I agree with current management stated by Dr Nicolás MD,PGY1. Plan of care was discussed with the attending physician and resident physician. Disclaimer: Despite multiple revisions, due to the dictation software being used, the document bellow may not be free of grammatical errors including phonetic/typographic errors. However, this does not deter from our commitment to providing health care in the patient's best interest in mind. Dr. 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 Had second seizure en route and was given 0.8 mg of Versed. In ED, she was given 2 mg ativan as well as 3 g of Keppra and teleneuro consulted of which she was observed to have a third seizure. CTA head/neck without LVO. CT head without acute hemorrhage and noted subacute R-sided infarct (noted on 12/17/2024). Per teleneuro recs, increase home Keppra from 500 to 750 BID and vimpat 200 mg x1 followed by 100 mg BID if to have recurrent seizure. 01/13: Seen and examined at bedside in ED. Given recent administration of versed, ativan, and keppra patient was not alert and unable to provide additional history, but daughter was present. Daughter states that at baseline, patient can have normal conversations and is A&Ox3, but does have residual L- sided deficits and has been working with physical therapy. Daughter also states concerns whether or not patient regularly receives her keppra at her SNF and will follow-up. Prior to episodes today, she was at her baseline as of yesterday but was noted to have a UTI per UA in ED. TSH and free T4 noted to be elevated while on synthyroid, so will hold. Troponin mildly elevatted at 1.05 and will trend, but likely secondary to seizures. CK within normal limits. Exam Vital Signs Temp Pulse Resp BP Pulse Ox O2 Del Method 97.2 F 66 16 124/74 98 Room Air 01/13/25 11:11 01/13/25 11:11 01/13/25 11:11 01/13/25 11:11 01/13/25 11:11 01/13/25 11:11 Narrative Exam General: not alert, in bed sitting up HEENT: NC/AT, mucous membranes moist, bilateral sclera anicteric Cardiovascular: regular rate and rhythm, S1/S2 present, no murmurs appreciated Pulmonary: clear to auscultation bilaterally, no rales/rhonchi/wheezes Abdominal: soft, non-tender, non-distended, G-tube in place Musculoskeletal: normal ROM, no peripheral edema Skin: warm and dry, intact, no rashes Neuro: GCS 6 in setting of recent benzo and keppra administration Objective Labs 01/17/25 04:59 01/17/25 04:59 Labs: Laboratory Results - last 24 hr 01/13/25 01/13/25 01/13/25 02:40 02:53 06:18 WBC 7.1 RBC 4.82 Hgb 14.3 Hct 42.6 MCV 88 MCH 29.7 MCHC 33.6 RDW Std Deviation 43.8 Plt Count 365 Neut % (Auto) 78 Lymph % (Auto) 15 [place] % (Auto) 6 Eos % (Auto) 1 Baso % (Auto) 1 Neut # (Auto) 5.5 Lymph # (Auto) 1.0 [place] # (Auto) 0.4 Eos # (Auto) 0.0 Baso # (Auto) 0.1 Immature Gran # (Auto) 0.02 H Absolute Nucleated RBC 0.00 Immature Gran % 0 Nucleated RBC % 0 PT 12.5 H INR 1.2 APTT 22.0 Sodium 136 Potassium 4.1 Chloride 102 Carbon Dioxide 22.6 Anion Gap 11 BUN 11 Creatinine 1.2 Estim Creat Clear Calc Not Performed. eGFR 46 L BUN/Creatinine Ratio 9 L Glucose [address] Glu mg/dL 91 Hemoglobin A1c 4.8 Calculated Osmolality 272 L Lactic Acid 2.1 H 1.7 Calcium 9.9 Corrected Calcium 10.1 Phosphorus Magnesium 0.9 L* Total Bilirubin 0.4 AST 33 ALT 17 Alkaline Phosphatase 82 Total Creatine Kinase 49 Troponin I 0.105 H* B-Natriuretic Peptide 99 Total Protein 6.8 Albumin 3.7 Globulin 3.1 Albumin/Globulin Ratio 1.2 TSH Free T4 2.16 H Ur Collection Type Catheter Urine Color Yellow Urine Clarity Turbid A Urine pH 6.0 Ur Specific [place] 1.024 Urine Protein 1+ A Urine Glucose (UA) Negative Urine Ketones Negative Urine Blood Negative Urine Nitrite Positive Urine Bilirubin Negative Urine Urobilinogen (Auto) Negative Ur Leukocyte Esterase Positive Urine RBC 5 H Urine WBC 144 H Ur Squamous Epith Cells < 1 Urine Bacteria Rare Hyaline Casts < 1 Urine Opiates Screen Negative Urine Fentanyl Screen Negative Ur Barbiturates Screen Negative U Amphetamin/Meth Scrn Negative U Benzodiazepines Scrn Positive A U Cocaine Metab Screen Negative U Marijuana (THC) Screen Negative HCG (Qual) Negative 01/13/25 10:04 WBC RBC Hgb Hct MCV MCH MCHC RDW Std Deviation Plt Count Neut % (Auto) Lymph % (Auto) [place] % (Auto) Eos % (Auto) Baso % (Auto) Neut # (Auto) Lymph # (Auto) [place] # (Auto) Eos # (Auto) Baso # (Auto) Immature Gran # (Auto) Absolute Nucleated RBC Immature Gran % Nucleated RBC % PT INR APTT Sodium Potassium Chloride Carbon Dioxide Anion Gap BUN Creatinine Estim Creat Clear Calc eGFR BUN/Creatinine Ratio Glucose Estimated Ave Glu mg/dL Hemoglobin A1c Calculated Osmolality Lactic Acid Calcium Corrected Calcium Phosphorus 3.6 Magnesium 2.4 Total Bilirubin AST ALT Alkaline Phosphatase Total Creatine Kinase Troponin I 0.141 H* B-Natriuretic Peptide Total Protein Albumin Globulin Albumin/Globulin Ratio TSH 6.14 H D Free T4 Ur Collection Type Urine Color Urine Clarity Urine pH Ur Specific [place] Urine Protein Urine Glucose (UA) Urine Ketones Urine Blood Urine Nitrite Urine Bilirubin Urine Urobilinogen (Auto) Ur Leukocyte Esterase Urine RBC Urine WBC Ur Squamous Epith Cells Urine Bacteria Hyaline Casts Urine Opiates Screen Urine Fentanyl Screen Ur Barbiturates Screen U Amphetamin/Meth Scrn U Benzodiazepines Scrn U Cocaine Metab Screen U Marijuana (THC) Screen HCG (Qual) Quality Measures Quality Measures none Advance care planning discussed with:: other Assessment & Plan Assessment Current Active Medications: Generic Name Dose Route Start Last Admin Trade Name Freq PRN Reason Stop Dose Admin Acetaminophen 325 mg 01/13/25 05:46 Acetaminophen Supp 325 Mg Supp NM 02/12/25 05:59 Q6H PRN fever >100 or pain 1-3 Protocol Amiodarone HCl 200 mg 01/13/25 09:00 Amiodarone Hcl 200 Mg Tablet GT 02/12/25 08:59 BID JOHNY Atorvastatin Calcium 20 mg 01/13/25 21:00 Atorvastatin Calcium 10 Mg Tablet GT 02/12/25 20:59 HS JOHNY Dextrose 25 ml 01/13/25 09:29 Dextrose 50%-Water Inj 50 Ml Syringe IV 02/12/25 09:28 Q15MIN PRN BG 50-70 responsive npo pt Dextrose 50 ml 01/13/25 09:29 Dextrose 50%-Water Inj 50 Ml Syringe IV 02/12/25 09:28 Q15MIN PRN BG <50 OR BG <70 & pt unresponsive Docusate Sodium 100 mg 01/13/25 05:46 Docusate Sod Liqd 100 Mg/10 Ml Udc GT 02/12/25 08:59 BID PRN constipation Protocol Glucagon 1 mg 01/13/25 09:29 Glucagon Inj 1 Mg Vial IM Q15MIN PRN BG <70, and no IV access Ceftriaxone Sodium 1,000 mg/ 50 mls @ 100 mls/hr 01/13/25 09:00 01/13/25 11:54 Sodium Chloride IV 01/20/25 08:59 100 mls/hr QDAY JOHNY Administration Sodium Chloride 1,000 mls @ 75 mls/hr 01/13/25 09:35 Ns IV 02/12/25 09:34 .[id number] JOHNY Levetiracetam 750 mg 01/13/25 21:00 Levetiracetam Liqd 500 Mg/5 Ml Udc GT 02/12/25 20:59 BID JOHNY Levothyroxine Sodium 112 mcg 01/13/25 07:00 01/13/25 08:19 Levothyroxine Sodium 112 Mcg Tablet GT 02/12/25 06:59 Not Given ACBR JOHNY Metoprolol Tartrate 50 mg 01/13/25 09:00 Metoprolol Tartrate 25 Mg Tablet GT 02/12/25 08:59 BID JOHNY Ondansetron HCl 4 mg 01/13/25 02:27 Ondansetron Inj 2 Mg/Ml Inj 2 Ml IV 02/12/25 02:26 Q4HR PRN NAUSEA OR VOMITING Plan Ade Awan is a 79-y/o female with a PMHx of 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 #Seizures #Status epilepticus Seizure at SNF, in ambulance, and with telenuro -> status epilepticus Has history of status epilepticus requiring intubation and has home Keppra of 500 mg BID. CK within normal limits. ? Neurology consulted, appreciate recs ? Follow-up EEG ? Keppra 750 mg liquid twice daily ? If to seize again: load with Vimpat 200 mg x1 followed by Vimpat 100 mg BID, per teleneuro #CVA rule out #History of strokes (ischemic with hemorrhagic conversion) Stroke needs to be ruled out considering multiple risk factors (HTN, HLD, A-fib) CTA head/neck (-) for LVO. CT head without hemorrhage. Follow-up MRI. ? Neurology consulted, appreciate recs ? Follow-up MRI ? Follow-up echo ? Speech therapy ? NPO -> IVF, NS 75 cc/hr ? Permissive hypertension ? Lipitor 20 mg #Urinary tract infection UA: 144 white cells, rare bacteria, LE and nitrate (+). Hx of pansenstive E coli. ? Follow-up urine culture ? Follow-up blood culture ? Rocephin 1 g IV daily #Chronic A-fib #Elevated troponins #Hx of UE DVT Troponin 0.105 -> 0.14. No AC due to history of hemorrhagic conversion. ? Resumed home Amiodarone 200 mg twice daily via G-tube ? Trend troponins #Hypomagnesemia Repleted with 4 g IV in ED and repeat increased from 0.9 to 2.4. #History of hypertension #History of hyperlipidemia Most recent lipid panel shows total cholesterol 175, triglycerides 208, LDL 93 ? Allowing for permissive hypertension ? Resumed home Lipitor 20 mg ? Resumed home Lopressor 50 mg twice daily #History of hypothyroidism TSH 6.14 and free T4 2.16. Previous TSH noted to be significantly elevated at 59 with free T4 wnl. ? Holding home Synthroid 112 mcg daily #? Diabetes mellitus A1c 4.8%. #History of PEG tube Placed due to decreased PO intake an apparently dysphagia but has since been eating mechanically altered diet. ? RD consult ? Follow-up speech evaluation ? Will need to flush G-tube since it hasn't been used in a few weeks if to be used and can consider tube feedings Hospital management: Disposition: pending neurology consult, EEG, echo Fluids: NS at 75 cc/hr Diet: NPO, possible G tube feedings Lines: PIV DVT prophylaxis: SCDs GI prophylaxis: none Avalos: placed CODE STATUS: full code ----- Plan discussed with attending physician Dr. Michelle and senior resident physician Dr. Gardenia Monzon MD PGY-1 Internal Medicine Attending Provider Attestation/Addendum I have discussed and was present for the essential components of the history, physical examination, diagnosis, and treatment plan with the resident. I agree with the patient's care as documented by the resident and amended herein by me. Daniel Michelle, DO. Although this document has been carefully reviewed, there may still be some phonetic and other typographical errors. These errors are purely grammatical due to imperfections in the software program and should not be construed in any way to compromise the substance of the patient's medical care during this visit.
--- NOTE | 2025-01-13 12:04 | PC.NURSE ---
report handoff given to Valarie UMAÑA, patient transferring to room 353.
[2025-01-13] MEDS: SODIUM CHLORIDE 0.9% 1000 ML 1,000 ML 75 ML IV (12:36)
--- NOTE | 2025-01-13 13:55 | PC.DIETICIAN ---
Nutrition prescription If oral intake is feasible: Cardiac (adjust food/liquids consistency as needed after [employer] eval). If EN is indicated, consider: Jevity 1.2 at 20 ml/hr via PEG tube by pump. Advance 10 ml every 8 hrs to goal rate of 55 ml/hr x 22 hrs. If no IV fluids, water flushes of 25 ml/hr x 22 hrs (or per MD). -Hold TF for one hour before and after levothyroxine administration-
[2025-01-13] MEDS: METOPROLOL TARTRATE 25 MG TABLET 50 MG GT (15:05)
[2025-01-13] MEDS: AMIODARONE HCL 200 MG TABLET GT ×2 (15:07→21:56)
--- NOTE | 2025-01-13 15:48 | RESP.EEG ---
EEG attempted @ 1535, could not complete, pt heading to MRI. Nurse will call when pt arrives back.
--- NOTE | 2025-01-13 17:37 | RESP.EEG ---
eeg done and ready to be read
[2025-01-13 18:05] LABS: Troponin I 0.102 ng/mL (0.0-0.045)
--- NOTE | 2025-01-13 20:09 | PD.NEUROPROG ---
Documentation for date of: 01/13/25 Subjective Subjective Interval history: Patient was seen in telemetry today at the bedside. Continue to have dense left hemiplegia with spasticity and contracture. She moves right upper and lower extremities well. She has not had any seizures since admission. Exam - Neurology Vital Signs Temp Pulse Resp BP Pulse Ox O2 Del Method O2 Flow Rate 97.0 F 61 14 133/95 H 100 Oxy Mask 4 01/13/25 15:49 01/13/25 15:49 01/13/25 15:49 01/13/25 15:49 01/13/25 15:49 01/13/25 15:49 01/13/25 15:49 Narrative Exam GENERAL APPEARANCE: Well hydrated, well-nourished , in no acute distress HEENT: Normocephalic, atraumatic, extraocular movements intact. Pupils: Equal reacting to light NECK: Supple, no JVD or bruits. CARDIOVASULAR: Heart: S1, S2 heard, regular without S3-S4 or murmur no rubs or gallops. LUNGS/CHEST: Clear to auscultation bilaterally. No rails, rhonchi, or wheezing. Normal inspection. ABDOMEN: Soft, nontender, with normal bowel sounds. No pulsatile masses. No rebound, rigidity, or guarding. Normal inspection and palpation. EXTREMITIES: Normal inspection and palpation. No edema, clubbing or cyanosis. SKIN: Warm and dry without rashes. Normal inspection. MUSCULOSKELETAL: No cervical, thoracic, lumbar or midline bony tenderness. Normal inspection. NEURO: Patient is lethargic, not arousable. Continue to have dense left hemiplegia with spasticity and contracture noted. Moves right upper and lower extremities. Gait: Not tested. PSYCHIATRIC: Limited Objective Labs 01/14/25 06:35 01/14/25 06:35 Labs: Laboratory Results - last 24 hr 01/13/25 01/13/25 01/13/25 02:40 02:53 06:18 WBC 7.1 RBC 4.82 Hgb 14.3 Hct 42.6 MCV 88 MCH 29.7 MCHC 33.6 RDW Std Deviation 43.8 Plt Count 365 Neut % (Auto) 78 Lymph % (Auto) 15 [place] % (Auto) 6 Eos % (Auto) 1 Baso % (Auto) 1 Neut # (Auto) 5.5 Lymph # (Auto) 1.0 [place] # (Auto) 0.4 Eos # (Auto) 0.0 Baso # (Auto) 0.1 Immature Gran # (Auto) 0.02 H Absolute Nucleated RBC 0.00 Immature Gran % 0 Nucleated RBC % 0 PT 12.5 H INR 1.2 APTT 22.0 Sodium 136 Potassium 4.1 Chloride 102 Carbon Dioxide 22.6 Anion Gap 11 BUN 11 Creatinine 1.2 Estim Creat Clear Calc Not Performed. eGFR 46 L BUN/Creatinine Ratio 9 L Glucose [address] Glu mg/dL 91 Hemoglobin A1c 4.8 Calculated Osmolality 272 L Lactic Acid 2.1 H 1.7 Calcium 9.9 Corrected Calcium 10.1 Phosphorus Magnesium 0.9 L* Total Bilirubin 0.4 AST 33 ALT 17 Alkaline Phosphatase 82 Total Creatine Kinase 49 Troponin I 0.105 H* B-Natriuretic Peptide 99 Total Protein 6.8 Albumin 3.7 Globulin 3.1 Albumin/Globulin Ratio 1.2 TSH Free T4 2.16 H Ur Collection Type Catheter Urine Color Yellow Urine Clarity Turbid A Urine pH 6.0 Ur Specific [place] 1.024 Urine Protein 1+ A Urine Glucose (UA) Negative Urine Ketones Negative Urine Blood Negative Urine Nitrite Positive Urine Bilirubin Negative Urine Urobilinogen (Auto) Negative Ur Leukocyte Esterase Positive Urine RBC 5 H Urine WBC 144 H Ur Squamous Epith Cells < 1 Urine Bacteria Rare Hyaline Casts < 1 Urine Opiates Screen Negative Urine Fentanyl Screen Negative Ur Barbiturates Screen Negative U Amphetamin/Meth Scrn Negative U Benzodiazepines Scrn Positive A U Cocaine Metab Screen Negative U Marijuana (THC) Screen Negative HCG (Qual) Negative 01/13/25 01/13/25 10:04 17:01 WBC RBC Hgb Hct MCV MCH MCHC RDW Std Deviation Plt Count Neut % (Auto) Lymph % (Auto) [place] % (Auto) Eos % (Auto) Baso % (Auto) Neut # (Auto) Lymph # (Auto) [place] # (Auto) Eos # (Auto) Baso # (Auto) Immature Gran # (Auto) Absolute Nucleated RBC Immature Gran % Nucleated RBC % PT INR APTT Sodium Potassium Chloride Carbon Dioxide Anion Gap BUN Creatinine Estim Creat Clear Calc eGFR BUN/Creatinine Ratio Glucose Estimated Ave Glu mg/dL Hemoglobin A1c Calculated Osmolality Lactic Acid Calcium Corrected Calcium Phosphorus 3.6 Magnesium 2.4 Total Bilirubin AST ALT Alkaline Phosphatase Total Creatine Kinase Troponin I 0.141 H* 0.102 H* B-Natriuretic Peptide Total Protein Albumin Globulin Albumin/Globulin Ratio TSH 6.14 H D Free T4 Ur Collection Type Urine Color Urine Clarity Urine pH Ur Specific [place] Urine Protein Urine Glucose (UA) Urine Ketones Urine Blood Urine Nitrite Urine Bilirubin Urine Urobilinogen (Auto) Ur Leukocyte Esterase Urine RBC Urine WBC Ur Squamous Epith Cells Urine Bacteria Hyaline Casts Urine Opiates Screen Urine Fentanyl Screen Ur Barbiturates Screen U Amphetamin/Meth Scrn U Benzodiazepines Scrn U Cocaine Metab Screen U Marijuana (THC) Screen HCG (Qual) Assessment & Plan Additional Assessment & Plan Additional Plan: 1) 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 MRI brain showed findings consistent with large old infarct in the right frontal and parietal area. Will hold off on antiplatelet/anticoagulant therapy for at least 2 months because of the recent intracerebral hemorrhage event. (2) altered mental status Continue with Keppra, seizure precautions. Continue with Ativan, follow-up with the repeat EEG to evaluate further. (3) Hypertension: Continue with aggressive blood pressure management
[2025-01-13] MEDS: BALSAM PERU/CASTOR OIL (Venelex) 60 GM TUBE TOP (21:55)
[2025-01-13] MEDS: ATORVASTATIN CALCIUM 10 MG TABLET 20 MG GT (21:56)
[2025-01-13] MEDS: levETIRAcetam LIQD 500 MG/5 ML UDC 750 MG GT (21:56)
[2025-01-14] VITALS (9 sets, daily range): BP systolic 128–151; BP diastolic 58–82; PULSE 52–72; RESP 15–20; TEMP 36.1–36.5; O2SAT 95–99
[2025-01-14 01:24] LABS: Troponin I 0.075 ng/mL (0.0-0.045)
[2025-01-14] MEDS: SODIUM CHLORIDE 0.9% 1000 ML 1,000 ML 75 ML IV (05:20)
[2025-01-14 07:16] LABS: Basophils # (Auto) 0.1 Thou/mm3 (0.0-0.2); Basophils % (Auto) 1 % (0-2.5); Eosinophils # (Auto) 0.1 Thou/mm3 (0.0-0.5); Eosinophils % (Auto) 2 % (0-10); Hematocrit 37.8 % (36.0-46.0); Hemoglobin 12.7 g/dL (12.0-16.0); Immature Granulocytes % (Auto) 0 % (0-0); Immature Granulocytes Auto 0.02 Thou/mm3 (0.00-0.00); Lymphocytes % (Auto) 16 % (10-50); Mean Corpuscular HGB Conc 33.6 g/dl (31.0-37.0); Mean Corpuscular Hemoglobin 29.8 pg (25.0-35.0); Mean Corpuscular Volume 89 fL (80-100); Monocytes # (Auto) 0.5 Thou/mm3 (0.0-0.8); Monocytes % (Auto) 9 % (0-12); Neutrophils # (Auto) 4.2 Thou/mm3 (1.8-7.7); Neutrophils % (Auto) 72 % (37-80); Nucleated Red Blood Cell % 0 /100 WBC (0); Platelet Count 232 Thou/mm3 (140-440); RDW Standard Deviation 44.2 fL (36.4-46.3); Red Blood Count 4.26 Miln/mm3 (4.00-5.20); White Blood Count 5.9 Thou/mm3 (3.6-11.0)
[2025-01-14 07:37] LABS: INR 1.1 (0.9-1.3); Partial Thromboplastin Time 24.5 Seconds (22.0-36.0); Prothrombin Time 11.8 Seconds (9.0-12.2)
[2025-01-14 07:49] LABS: Alanine Aminotransferase 14 U/L (10-49); Albumin, Serum 3.2 gm/dL (3.4-4.8); Albumin/Globulin Ratio 1.3 (1.2-2.2); Alkaline Phosphatase 77 U/L (46-116); Anion Gap 12 (7-16); Aspartate Amino Transferase 32 U/L (0-34); BUN/Creatinine Ratio 10 Ratio (12-20); Bilirubin,Total 0.2 mg/dL (0.3-1.2); Blood Urea Nitrogen 10 mg/dL (9-23); Calcium 8.9 mg/dL (8.3-10.6); Calcium (Corrected) 9.5 mg/dL (8.5-10.1); Carbon Dioxide 23.5 mMol/L (20.0-31.0); Chloride 105 mMol/L (98-107); Estimated Creatinine Clearance 37.3 mL/min (>60); Globulin 2.4 gm/dL (2.3-3.5); Glucose 100 mg/dL (74-106); Magnesium 1.6 mg/dL (1.6-2.6); Osmolality,Calculated 278 (275-295); Phosphorous 2.7 mg/dL (2.4-5.1); Potassium 3.5 mMol/L (3.4-5.1); Sodium 140 mMol/L (136-145); Total Protein 5.6 gm/dL (5.7-8.2); eGFR 57 See Note
[2025-01-14] MEDS: cefTRIAXone 1,000 MG in SODIUM CHLORIDE 0.9% (Popper) 50 ML 100 MG IV (09:51)
[2025-01-14] MEDS: levETIRAcetam LIQD 500 MG/5 ML UDC 750 MG GT ×2 (09:54→20:17)
[2025-01-14] MEDS: METOPROLOL TARTRATE 25 MG TABLET 50 MG GT ×2 (09:55→20:19)
[2025-01-14] MEDS: AMIODARONE HCL 200 MG TABLET GT ×2 (09:55→20:17)
--- NOTE | 2025-01-14 10:05 | PC.SS ---
Initial assessment: this is 79 year old female admitted for stroke r/o. Daughter at bed side. Patient comes from [facility], has been there for about a month. Patient identified her daughter Cat as her emergency contact. Patient requires some assistance with ADL's. Per daughter, patient is wheelchair bound. Discharge plan is to return to [facility]. No needs identified at this time. D/c plan: [facility] Next of kin: daughterKaila [phone]
--- NOTE | 2025-01-14 10:11 | PC.SS ---
Addendum entered by TAMIE Dove 01/14/25 15:03: Rounding note: pending neurology recommendations. Original Note: SS follow up: Yun at [facility] informs the patient does not require authorization and can return to facility once ready for d/c.
[2025-01-14] MEDS: Magnesium Sulfate 2 GM Ivpb 2 GM/50 ML BAG IV (12:00)
[2025-01-14] MEDS: DIVALPROEX SOD 125 MG SPRINKLE 750 MG PO ×2 (12:04→20:18)
--- NOTE | 2025-01-14 12:37 | ESPR_ITS ---
<Statement entered by Trace Varner MD - 01/14/25 15:31> Patient was seen and examined at the bedside. Patient was more alert and was oriented to commands. Neurology recommended to start Depakote 750 mg twice daily. Will perform EEG 48-hour. MRI brain showed 25 mm focus restricted diffusion. Will follow-up with neurology recommendations. Pending urine cultures for UTI. White count was stable. Potassium was borderline low which was repleted. Will perform speech evaluation to evaluate for p.o. diet. All labs and orders were reviewed. I saw and examined the patient, and I agree with current management stated by Dr Nicoáls MD,PGY1. Plan of care was discussed with the attending physician and resident physician. Disclaimer: Despite multiple revisions, due to the dictation software being used, the document bellow may not be free of grammatical errors including phonetic/typographic errors. However, this does not deter from our commitment to providing health care in the patient's best interest in mind. Dr. 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 Had second seizure en route and was given 0.8 mg of Versed. In ED, she was given 2 mg ativan as well as 3 g of Keppra and teleneuro consulted of which she was observed to have a third seizure. CTA head/neck without LVO. CT head without acute hemorrhage and noted subacute R-sided infarct (noted on 12/17/2024). Per teleneuro recs, increase home Keppra from 500 to 750 BID and vimpat 200 mg x1 followed by 100 mg BID if to have recurrent seizure. 01/13: Seen and examined at bedside in ED. Given recent administration of versed, ativan, and keppra patient was not alert and unable to provide additional history, but daughter was present. Daughter states that at baseline, patient can have normal conversations and is A&Ox3, but does have residual L- sided deficits and has been working with physical therapy. Daughter also states concerns whether or not patient regularly receives her keppra at her SNF and will follow-up. Prior to episodes today, she was at her baseline as of yesterday but was noted to have a UTI per UA in ED. TSH and free T4 noted to be elevated while on synthyroid, so will hold. Troponin mildly elevatted at 1.05 and will trend, but likely secondary to seizures. CK within normal limits. 01/14: Seen and examined at bedside on medical floor with daughter present. No acute overnight events noted and no additional seizure episodes noted. Patient is alert and oriented at bedside x 3 which is much improved compared to yesterday does not have any complaints. Exam Vital Signs Temp Pulse Resp BP Pulse Ox O2 Del Method O2 Flow Rate 96.9 F 66 18 138/82 H 99 Room Air 4 01/14/25 12:01/14/25 12:01/14/25 12:01/14/25 12:01/14/25 12:01/14/25 12:01/13/25 15:49 Narrative Exam General: Alert and oriented x 3, speaks in 2-3 word sentences in low volume HEENT: NC/AT, mucous membranes moist, bilateral sclera anicteric Cardiovascular: regular rate and rhythm, S1/S2 present, no murmurs appreciated Pulmonary: clear to auscultation bilaterally, no rales/rhonchi/wheezes Abdominal: soft, non-tender, non-distended, G-tube in place Musculoskeletal: normal ROM, no peripheral edema Skin: warm and dry, intact, no rashes Neuro: ? Strength 0/5 in left upper and lower extremities (daughter states this is patient's new baseline after leaving rehab) ? Strength 3/5 in right upper and lower extremities Objective Labs 01/15/25 04:47 01/15/25 04:47 Labs: Laboratory Results - last 24 hr 01/13/25 01/14/25 01/14/25 17:01 00:27 06:35 WBC 5.9 RBC 4.26 Hgb 12.7 Hct 37.8 MCV 89 MCH 29.8 MCHC 33.6 RDW Std Deviation 44.2 Plt Count 232 D Neut % (Auto) 72 Lymph % (Auto) 16 [place] % (Auto) 9 Eos % (Auto) 2 Baso % (Auto) 1 Neut # (Auto) 4.2 Lymph # (Auto) 1.0 [place] # (Auto) 0.5 Eos # (Auto) 0.1 Baso # (Auto) 0.1 Immature Gran # (Auto) 0.02 H Absolute Nucleated RBC 0.00 Immature Gran % 0 Nucleated RBC % 0 PT 11.8 INR 1.1 APTT 24.5 Sodium 140 Potassium 3.5 D Chloride 105 Carbon Dioxide 23.5 Anion Gap 12 BUN 10 Creatinine 1.0 Estim Creat Clear Calc 37.3 L eGFR 57 L BUN/Creatinine Ratio 10 L Glucose 100 Calculated Osmolality 278 Calcium 8.9 Corrected Calcium 9.5 Phosphorus 2.7 Magnesium 1.6 Total Bilirubin 0.2 L AST 32 ALT 14 Alkaline Phosphatase 77 Troponin I 0.102 H* 0.075 H* Total Protein 5.6 L Albumin 3.2 L D Globulin 2.4 Albumin/Globulin Ratio 1.3 Quality Measures Quality Measures none Advance care planning discussed with:: other Assessment & Plan Assessment Current Active Medications: Generic Name Dose Route Start Last Admin Trade Name Freq PRN Reason Stop Dose Admin Acetaminophen 325 mg 01/13/25 05:46 Acetaminophen Supp 325 Mg Supp AL 02/12/25 05:59 Q6H PRN fever >100 or pain 1-3 Protocol Amiodarone HCl 200 mg 01/13/25 09:00 01/14/25 09:55 Amiodarone Hcl 200 Mg Tablet GT 02/12/25 08:59 200 mg BID JOHNY Administration Atorvastatin Calcium 20 mg 01/13/25 21:00 01/13/25 21:56 Atorvastatin Calcium 10 Mg Tablet GT 02/12/25 20:59 20 mg HS JOHNY Administration Balsam [place] Oil 0 gm 01/13/25 21:00 01/13/25 21:55 Balsam [place] Oil (Venelex) 60 Gm Tube TOP 02/12/25 20:59 1 applicatio BID JOHNY Administration Dextrose 25 ml 01/13/25 09:29 Dextrose 50%-Water Inj 50 Ml Syringe IV 02/12/25 09:28 Q15MIN PRN BG 50-70 responsive npo pt Dextrose 50 ml 01/13/25 09:29 Dextrose 50%-Water Inj 50 Ml Syringe IV 02/12/25 09:28 Q15MIN PRN BG <50 OR BG <70 & pt unresponsive Divalproex Sodium 750 mg 01/14/25 09:45 01/14/25 12:04 Divalproex Sod 125 Mg Sprinkle PO 02/13/25 09:44 750 mg BID JOHNY Administration Docusate Sodium 100 mg 01/13/25 05:46 Docusate Sod Liqd 100 Mg/10 Ml Udc GT 02/12/25 08:59 BID PRN constipation Protocol Glucagon 1 mg 01/13/25 09:29 Glucagon Inj 1 Mg Vial IM Q15MIN PRN BG <70, and no IV access Ceftriaxone Sodium 1,000 mg/ 50 mls @ 100 mls/hr 01/13/25 09:00 01/14/25 09:51 Sodium Chloride IV 01/20/25 08:59 100 mls/hr QDAY JOHNY Administration Sodium Chloride 1,000 mls @ 75 mls/hr 01/13/25 17:50 01/14/25 05:20 Ns IV 01/14/25 17:49 75 mls/hr .[id number] JOHNY Administration Potassium Phosphate 15 mmol in 250 mls @ 62.5 mls/hr 01/14/25 08:17 Pot Phos 15 Mmol In Ns 250 Ml IV 01/14/25 16:16 Q4H JOHNY Levetiracetam 750 mg 01/13/25 21:00 01/14/25 09:54 Levetiracetam Liqd 500 Mg/5 Ml Udc GT 02/12/25 20:59 750 mg BID JOHNY Administration Levothyroxine Sodium 112 mcg 01/13/25 07:00 01/13/25 08:19 Levothyroxine Sodium 112 Mcg Tablet GT 02/12/25 06:59 Not Given ACBR JOHNY Metoprolol Tartrate 50 mg 01/13/25 09:00 01/14/25 09:55 Metoprolol Tartrate 25 Mg Tablet GT 02/12/25 08:59 50 mg BID JOHNY Administration Ondansetron HCl 4 mg 01/13/25 02:27 Ondansetron Inj 2 Mg/Ml Inj 2 Ml IV 02/12/25 02:26 Q4HR PRN NAUSEA OR VOMITING Plan Ade Awan is a 79-y/o female with a PMHx of CVA (10/2024 with hemorrhagic conversion and residual L-sided deficits, 12/2024), seizures (admitted 12/14 for status epilepticus requiring intubation), a-fib (not on A/C 2/2 hemorrhagic conversion), HTN, HLD, and hypothyroidism who presents from [facility] and admitted for multiple seizures/status epilepticus on 01/13. #Seizures #Status epilepticus Seizure at [facility], in ambulance, and with telenuro -> status epilepticus Has history of status epilepticus requiring intubation and has home Keppra of 500 mg BID. ? Neurology consulted, appreciate recs ? EEG showed diffuse slowing with periodic lateralized epileptic discharges in right cerebral hemisphere ? Depakote 750 mg twice daily ? Keppra 750 mg liquid twice daily ? Repeat EEG in 48 hours ? If to seize again: load with Vimpat 200 mg x1 followed by Vimpat 100 mg BID, per teleneuro #CVA rule out #History of strokes (ischemic with hemorrhagic conversion) Stroke needs to be ruled out considering multiple risk factors (HTN, HLD, A-fib) CTA head/neck (-) for LVO. CT head without hemorrhage. MRI: 25 mm focus restricted diffusion right frontal lobe, as seen in 12/2024 Echo: 55-60%, grade 1 diastolic dysfunction ? Neurology consulted, appreciate recs ? Speech therapy ? NPO -> IVF, NS 75 cc/hr ? Permissive hypertension ? Lipitor 20 mg #Urinary tract infection UA: 144 white cells, rare bacteria, LE and nitrate (+). Hx of pansenstive E coli. ? Rocephin 1 g IV daily ? Blood culture 01/13?NGTD ? Urine culture 01/13: NGTD #Chronic A-fib #Demand ischemia, resolved #Hx of UE DVT Troponin 0.105 -> 0.14. No AC due to history of hemorrhagic conversion. ? Resumed home Amiodarone 200 mg twice daily via G-tube ? Metoprolol tartrate 50 mg GT BID #Hypomagnesemia, resolved #History of hypertension #History of hyperlipidemia Most recent lipid panel shows total cholesterol 175, triglycerides 208, LDL 93 Has home nifedipine 30 mg PO daily, BP currently stable ? Resumed home Lipitor 20 mg #History of hypothyroidism TSH 6.14 and free T4 2.16. Previous TSH noted to be significantly elevated at 59 with free T4 wnl. ? Holding home Synthroid 112 mcg daily as free T4 supratherapeutic #? Diabetes mellitus A1c 4.8% #History of PEG tube Placed due to decreased PO intake an apparently dysphagia but has since been eating mechanically altered diet. ? Tube feedings: Pro Stat sugar free 30 mL ? Follow-up speech evaluation Hospital management: Disposition: pending neurology consult, EEG, echo Fluids: NS at 75 cc/hr Diet: Pro Stat sugar free 30 mL Lines: PIV DVT prophylaxis: SCDs GI prophylaxis: none Avalos: placed CODE STATUS: full code ----- Plan discussed with attending physician Dr. Jay and senior resident physician Dr. Gardenia Monzon MD PGY-1 Internal Medicine Attending Provider Attestation/Addendum I have examined the patient, reviewed labs and imaging findings, discussed the case with the resident(s), and reviewed entered orders. I agree with the plan of care as outlined in this note, with these additional summaries/recommendations: Patient and daughter seen at bedside. No acute overnight events. Patient admitted for seizure activity and status epilepticus. New onset seizures. EEG is abnormal with diffuse slowing and periodic lateralized epileptiform discharges suggestive of seizures. Patient started on Keppra 750 mg twice daily and Depakote 750 mg twice daily. We will continue seizure precautions and monitor for any further episodes. Per neurology will repeat EEG 48 hours. MRI was negative for acute hemorrhage or mass effect. Echocardiogram revealed EF 55 to 60% and grade 1 diastolic dysfunction. Continue IV Rocephin for urinary tract infection. Urine culture grew pansensitive E. coli. Continue amiodarone for chronic atrial fibrillation and not currently on anticoagulation given previous bleed. Continue tube feeds and free water flushes. Holding home Synthyroid as TSH significantly elevated. Patient and family updated on the plan and agreement. All questions answered to satisfaction. Repeat hematology and chemistry panel in AM. Dr. Misty MD
[2025-01-14] MEDS: BALSAM PERU/CASTOR OIL (Venelex) 60 GM TUBE TOP ×2 (15:20→20:17)
[2025-01-14] MEDS: POT PHOS 15 mMol in NS 250 ML 15 MMOL/250 ML BAG 62.5 MMOL IV ×2 (15:22→20:19)
[2025-01-14] MEDS: ATORVASTATIN CALCIUM 10 MG TABLET 20 MG GT (20:18)
[2025-01-15] VITALS (10 sets, daily range): BP systolic 139–151; BP diastolic 74–87; PULSE 56–78; RESP 15–23; TEMP 36–36.9; O2SAT 97–100
--- NOTE | 2025-01-15 00:02 | VVPN_ITS ---
Telemedicine visit statement This visit was conducted with the use of virtual visit was obtained on 01/14/25. Documentation for date of: 01/14/25 Subjective Subjective Interval history: Patient is in MedSurg. No new symptoms reported. Continues to have left dense hemiplegia, tolerating oral diet well. Virtual exam Vital Signs Temp Pulse Resp BP Pulse Ox O2 Del Method O2 Flow Rate 97.7 F 72 19 136/80 H 98 Room Air 4 01/14/25 20:00 01/14/25 20:19 01/14/25 20:00 01/14/25 20:19 01/14/25 20:00 01/14/25 20:00 01/13/25 15:49 Objective Labs 01/14/25 06:35 01/14/25 06:35 Labs: Laboratory Results - last 24 hr 01/14/25 01/14/25 00:27 06:35 WBC 5.9 RBC 4.26 Hgb 12.7 Hct 37.8 MCV 89 MCH 29.8 MCHC 33.6 RDW Std Deviation 44.2 Plt Count 232 D Neut % (Auto) 72 Lymph % (Auto) 16 [place] % (Auto) 9 Eos % (Auto) 2 Baso % (Auto) 1 Neut # (Auto) 4.2 Lymph # (Auto) 1.0 [place] # (Auto) 0.5 Eos # (Auto) 0.1 Baso # (Auto) 0.1 Immature Gran # (Auto) 0.02 H Absolute Nucleated RBC 0.00 Immature Gran % 0 Nucleated RBC % 0 PT 11.8 INR 1.1 APTT 24.5 Sodium 140 Potassium 3.5 D Chloride 105 Carbon Dioxide 23.5 Anion Gap 12 BUN 10 Creatinine 1.0 Estim Creat Clear Calc 37.3 L eGFR 57 L BUN/Creatinine Ratio 10 L Glucose 100 Calculated Osmolality 278 Calcium 8.9 Corrected Calcium 9.5 Phosphorus 2.7 Magnesium 1.6 Total Bilirubin 0.2 L AST 32 ALT 14 Alkaline Phosphatase 77 Troponin I 0.075 H* Total Protein 5.6 L Albumin 3.2 L D Globulin 2.4 Albumin/Globulin Ratio 1.3 Assessment & Plan Assessment 1) 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 MRI brain showed findings consistent with large old infarct in the right frontal and parietal area. Will hold off on antiplatelet/anticoagulant therapy for at least 2 months because of the recent intracerebral hemorrhage event. (2) altered mental status with abnormal EEG: As the EEG showed periodic lateralized epileptiform discharges in the right cerebral hemisphere, will discontinue Keppra. For better side effect profile of switch to Depakote 750 mg twice daily (3) Hypertension: Continue with aggressive blood pressure manage
[2025-01-15 06:22] LABS: Basophils # (Auto) 0.1 Thou/mm3 (0.0-0.2); Basophils % (Auto) 1 % (0-2.5); Eosinophils # (Auto) 0.2 Thou/mm3 (0.0-0.5); Eosinophils % (Auto) 3 % (0-10); Hematocrit 37.4 % (36.0-46.0); Hemoglobin 12.2 g/dL (12.0-16.0); Immature Granulocytes % (Auto) 1 % (0-0); Immature Granulocytes Auto 0.03 Thou/mm3 (0.00-0.00); Lymphocytes # (Auto) 1.2 Thou/mm3 (1.0-4.8); Lymphocytes % (Auto) 22 % (10-50); Mean Corpuscular HGB Conc 32.6 g/dl (31.0-37.0); Mean Corpuscular Hemoglobin 29.4 pg (25.0-35.0); Mean Corpuscular Volume 90 fL (80-100); Monocytes # (Auto) 0.5 Thou/mm3 (0.0-0.8); Monocytes % (Auto) 9 % (0-12); Neutrophils # (Auto) 3.3 Thou/mm3 (1.8-7.7); Neutrophils % (Auto) 63 % (37-80); Nucleated Red Blood Cell % 0 /100 WBC (0); Platelet Count 302 Thou/mm3 (140-440); RDW Standard Deviation 45.5 fL (36.4-46.3); Red Blood Count 4.15 Miln/mm3 (4.00-5.20); White Blood Count 5.2 Thou/mm3 (3.6-11.0)
[2025-01-15 06:58] LABS: Alanine Aminotransferase 11 U/L (10-49); Albumin, Serum 3.2 gm/dL (3.4-4.8); Albumin/Globulin Ratio 1.2 (1.2-2.2); Alkaline Phosphatase 90 U/L (46-116); Anion Gap 11 (7-16); BUN/Creatinine Ratio 8 Ratio (12-20); Bilirubin,Total 0.2 mg/dL (0.3-1.2); Blood Urea Nitrogen 7 mg/dL (9-23); Calcium 8.8 mg/dL (8.3-10.6); Calcium (Corrected) 9.4 mg/dL (8.5-10.1); Carbon Dioxide 25.9 mMol/L (20.0-31.0); Chloride 108 mMol/L (98-107); Creatinine (Component) 0.9 mg/dL (0.6-1.3); Estimated Creatinine Clearance 41.4 mL/min (>60); Globulin 2.6 gm/dL (2.3-3.5); Glucose 92 mg/dL (74-106); Magnesium 1.7 mg/dL (1.6-2.6); Osmolality,Calculated 286 (275-295); Phosphorous 3.9 mg/dL (2.4-5.1); Potassium 3.8 mMol/L (3.4-5.1); Sodium 145 mMol/L (136-145); Total Protein 5.8 gm/dL (5.7-8.2); eGFR > 60 See Note
[2025-01-15 07:12] LABS: Aspartate Amino Transferase 23 U/L (0-34)
[2025-01-15] MEDS: AMIODARONE HCL 200 MG TABLET GT ×2 (09:24→20:34)
[2025-01-15] MEDS: METOPROLOL TARTRATE 25 MG TABLET 50 MG GT ×2 (09:24→20:33)
[2025-01-15] MEDS: DIVALPROEX SOD 125 MG SPRINKLE 750 MG PO (09:24)
[2025-01-15] MEDS: BALSAM PERU/CASTOR OIL (Venelex) 60 GM TUBE TOP ×2 (09:36→20:45)
[2025-01-15] MEDS: PIPER/TAZO 3.375 GM PREMIX 3.375 GM/50 ML BAG IV ×3 (09:36→21:37)
[2025-01-15] MEDS: POTASSIUM PHOS 22.5 MMOL in SODIUM CHLORIDE 0.9% 500 ML 500 ML 82.778 MMOL IV (10:39)
[2025-01-15] MEDS: Magnesium Sulfate 4 GM Ivpb 4 GM/50 ML BAG IV (10:39)
--- NOTE | 2025-01-15 11:38 | PC.SS ---
Rounding: Pt has ESBL in urine, pending Neuro consult
--- NOTE | 2025-01-15 12:43 | PC.NURSE ---
Per pharmacist Fernando ANGELO to give scheduled zosyn at 1400
[2025-01-15] MEDS: levETIRAcetam INJ 100 MG/ML VIAL 5ML 1000 MG IVP ×2 (13:12→20:40)
--- NOTE | 2025-01-15 13:58 | ESPR_ITS ---
Documentation for date of: 01/15/25 Subjective Subjective Interval history: Patient seen and assessed at bedside this morning. Patient resting comfortably in bed. Per daughter present in room patient had trouble sleeping last night due to frequent visits by staff. Exam Vital Signs Temp Pulse Resp BP Pulse Ox O2 Del Method O2 Flow Rate 98.4 F 67 15 145/74 H 99 Room Air 4 01/15/25 12:00 01/15/25 12:00 01/15/25 12:00 01/15/25 12:00 01/15/25 12:00 01/15/25 07:59 01/13/25 15:49 Narrative Exam General: Elderly female resting comfortably in bed. Cardiovascular: regular rate and rhythm, no murmurs, rubs, or gallops. Pulmonary: Chest clear to auscultation bilaterally, no rales/rhonchi/wheezes Abdominal: soft, non-tender, non-distended, G-tube in place Skin: warm and dry, intact, no rashes Neuro: Left upper extremity strength 0 out of 5, left lower extremity strength 0 out of 5. Right upper extremity strength 2 out of 5, right lower extremity strength 3 out of 5. Objective Labs 01/16/25 07:06 01/16/25 04:54 Labs: Laboratory Results - last 24 hr 01/15/25 04:47 WBC 5.2 RBC 4.15 Hgb 12.2 Hct 37.4 MCV 90 MCH 29.4 MCHC 32.6 RDW Std Deviation 45.5 Plt Count 302 D Neut % (Auto) 63 Lymph % (Auto) 22 [place] % (Auto) 9 Eos % (Auto) 3 Baso % (Auto) 1 Neut # (Auto) 3.3 Lymph # (Auto) 1.2 [place] # (Auto) 0.5 Eos # (Auto) 0.2 Baso # (Auto) 0.1 Immature Gran # (Auto) 0.03 H Absolute Nucleated RBC 0.00 Immature Gran % 1 H Nucleated RBC % 0 Sodium 145 Potassium 3.8 Chloride 108 H Carbon Dioxide 25.9 Anion Gap 11 BUN 7 L Creatinine 0.9 Estim Creat Clear Calc 41.4 L eGFR > 60 BUN/Creatinine Ratio 8 L Glucose 92 Calculated Osmolality 286 Calcium 8.8 Corrected Calcium 9.4 Phosphorus 3.9 Magnesium 1.7 Total Bilirubin 0.2 L AST 23 ALT 11 Alkaline Phosphatase 90 Total Protein 5.8 Albumin 3.2 L Globulin 2.6 Albumin/Globulin Ratio 1.2 Quality Measures Quality Measures none Advance care planning discussed with:: patient and child Assessment & Plan Assessment Current Active Medications: Generic Name Dose Route Start Last Admin Trade Name Freq PRN Reason Stop Dose Admin Acetaminophen 325 mg 01/13/25 05:46 Acetaminophen Supp 325 Mg Supp MD 02/12/25 05:59 Q6H PRN fever >100 or pain 1-3 Protocol Amiodarone HCl 200 mg 01/13/25 09:00 01/15/25 09:24 Amiodarone Hcl 200 Mg Tablet GT 02/12/25 08:59 200 mg BID JOHNY Administration Atorvastatin Calcium 20 mg 01/15/25 21:00 Atorvastatin Calcium 20 Mg Tablet GT 02/12/25 20:59 HS JOHNY Balsam [place] Oil 0 gm 01/13/25 21:00 01/15/25 09:36 Balsam [place] Oil (Venelex) 60 Gm Tube TOP 02/12/25 20:59 1 applicatio BID JOHNY Administration Dextrose 25 ml 01/13/25 09:29 Dextrose 50%-Water Inj 50 Ml Syringe IV 02/12/25 09:28 Q15MIN PRN BG 50-70 responsive npo pt Dextrose 50 ml 01/13/25 09:29 Dextrose 50%-Water Inj 50 Ml Syringe IV 02/12/25 09:28 Q15MIN PRN BG <50 OR BG <70 & pt unresponsive Docusate Sodium 100 mg 01/13/25 05:46 Docusate Sod Liqd 100 Mg/10 Ml Udc GT 02/12/25 08:59 BID PRN constipation Protocol Glucagon 1 mg 01/13/25 09:29 Glucagon Inj 1 Mg Vial IM Q15MIN PRN BG <70, and no IV access Piperacillin/Tazobactam/Dextrose 3.375 gm in 50 mls @ 12.5 mls/hr 01/15/25 14:00 Zosyn IV 01/22/25 13:59 Q8HR JOHNY Potassium Phosphate 22.5 mmol/ 507.5 mls @ 82.778 mls/hr 01/15/25 08:28 01/15/25 10:39 Sodium Chloride IV 01/15/25 14:35 82.778 mls/hr X1 ONE Administration Levetiracetam 1,000 mg 01/15/25 12:45 01/15/25 13:12 Levetiracetam Inj 100 Mg/Ml Vial 5ml IVP 02/14/25 12:44 1,000 mg Q12HR JOHNY Administration Levothyroxine Sodium 112 mcg 01/13/25 07:00 01/13/25 08:19 Levothyroxine Sodium 112 Mcg Tablet GT 02/12/25 06:59 Not Given ACBR JOHNY Metoprolol Tartrate 50 mg 01/13/25 09:00 01/15/25 09:24 Metoprolol Tartrate 25 Mg Tablet GT 02/12/25 08:59 50 mg BID JOHNY Administration Ondansetron HCl 4 mg 01/13/25 02:27 Ondansetron Inj 2 Mg/Ml Inj 2 Ml IV 02/12/25 02:26 Q4HR PRN NAUSEA OR VOMITING Pharmacy Consult 1 each 01/15/25 08:10 Pharmacy Renal Dose Adjustment 1 Ea XX 02/14/25 08:09 PRN PRN CONSULT Plan Ade Awan is a 79-y/o female with a PMHx of 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 Neurology consulted to assess for seizure-like activity. #Right MCA stroke #Altered mental status?improving #Status epilepticus Patient continues with left-sided weakness Continue with PT Will hold off on antiplatelet/anticoagulant therapy for at least 2 months because of the recent intracerebral hemorrhage event. Patient had EEG showing multiple spikes and waves consistent with seizure-like activity Will switch back to Keppra 1000 mg twice daily #Hypertension #Diabetes mellitus #A-fib #Hyperlipidemia #PEG tube #UTI Continue management per primary team Case discussed with attending Dr Gonzales Farias MD PGY3 Attending Provider Attestation/Addendum I personally have seen and examined the patient at the bedside and I agree with resident findings, assessment and plan of care. The repeat EEG did continue to show periodic lateralized epileptiform discharges in the right cerebral hemisphere, will increase the dose of the Keppra to 1000 mg twice a day and discontinue Depakote as she did better on Keppra according to the. Will continue to monitor her closely for any worsening subclinical status epilepticus.
--- NOTE | 2025-01-15 15:52 | PC.NURSE ---
Pt. daughter reports that she had another seizure, pt. stared off into space and got confused. Dr. Rolon made aware, states no concerns at this time. No new orders received.
--- NOTE | 2025-01-15 16:38 | ESPR_ITS ---
<Statement entered by Trace Varner MD - 01/15/25 18:28> Patient was seen and examined at the bedside. No acute overnight events were reported. Patient's daughter reports that patient has been feeling well and she wants the patient to have speech evaluation. Speech evaluation is still pending. Patient's urine culture grew ESBL UTI resistant to ceftriaxone therefore it was switched to Zosyn. Neurologist recommended to restart Keppra and will wait on EEG. Magnesium was repleted. Rest of the labs are unremarkable. Will continue with current management. All labs and orders were reviewed. I saw and examined the patient, and I agree with current management stated by Dr Nicolás MD,PGY1. Plan of care was discussed with the attending physician and resident physician. Disclaimer: Despite multiple revisions, due to the dictation software being used, the document bellow may not be free of grammatical errors including phonetic/typographic errors. However, this does not deter from our commitment to providing health care in the patient's best interest in mind. Dr. 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 Had second seizure en route and was given 0.8 mg of Versed. In ED, she was given 2 mg ativan as well as 3 g of Keppra and teleneuro consulted of which she was observed to have a third seizure. CTA head/neck without LVO. CT head without acute hemorrhage and noted subacute R-sided infarct (noted on 12/17/2024). Per teleneuro recs, increase home Keppra from 500 to 750 BID and vimpat 200 mg x1 followed by 100 mg BID if to have recurrent seizure. 01/13: Seen and examined at bedside in ED. Given recent administration of versed, ativan, and keppra patient was not alert and unable to provide additional history, but daughter was present. Daughter states that at baseline, patient can have normal conversations and is A&Ox3, but does have residual L- sided deficits and has been working with physical therapy. Daughter also states concerns whether or not patient regularly receives her keppra at her SNF and will follow-up. Prior to episodes today, she was at her baseline as of yesterday but was noted to have a UTI per UA in ED. TSH and free T4 noted to be elevated while on synthyroid, so will hold. Troponin mildly elevatted at 1.05 and will trend, but likely secondary to seizures. CK within normal limits. 01/14: Seen and examined at bedside on medical floor with daughter present. No acute overnight events noted and no additional seizure episodes noted. Patient is alert and oriented at bedside x 3 which is much improved compared to yesterday does not have any complaints. 01/15: Seen and examined at bedside on medical floors with daughter present. No acute overnight events noted and no additional seizure episodes noted. Patient alert and orientated at bedside x3, which daughter is relieved as she felt that patient become more sleepy/somnolent after being on depakote and keppra. EEG done today and will follow-up. Exam Vital Signs Temp Pulse Resp BP Pulse Ox O2 Del Method O2 Flow Rate 97.5 F 68 18 151/81 H 100 Room Air 4 01/15/25 16:00 01/15/25 16:00 01/15/25 16:00 01/15/25 16:00 01/15/25 16:00 01/15/25 16:00 01/13/25 15:49 Narrative Exam General: Alert and oriented x 3, speaks in 2-3 word sentences in low volume HEENT: NC/AT, mucous membranes moist, bilateral sclera anicteric Cardiovascular: regular rate and rhythm, S1/S2 present, no murmurs appreciated Pulmonary: clear to auscultation bilaterally, no rales/rhonchi/wheezes Abdominal: soft, non-tender, non-distended, G-tube in place Musculoskeletal: normal ROM, no peripheral edema Skin: warm and dry, intact, no rashes Neuro: ? Strength 0/5 in left upper and lower extremities (daughter states this is patient's new baseline after leaving rehab) ? Strength 3/5 in right upper and lower extremities Objective Labs 01/17/25 04:59 01/17/25 04:59 Labs: Laboratory Results - last 24 hr 01/15/25 04:47 WBC 5.2 RBC 4.15 Hgb 12.2 Hct 37.4 MCV 90 MCH 29.4 MCHC 32.6 RDW Std Deviation 45.5 Plt Count 302 D Neut % (Auto) 63 Lymph % (Auto) 22 [place] % (Auto) 9 Eos % (Auto) 3 Baso % (Auto) 1 Neut # (Auto) 3.3 Lymph # (Auto) 1.2 [place] # (Auto) 0.5 Eos # (Auto) 0.2 Baso # (Auto) 0.1 Immature Gran # (Auto) 0.03 H Absolute Nucleated RBC 0.00 Immature Gran % 1 H Nucleated RBC % 0 Sodium 145 Potassium 3.8 Chloride 108 H Carbon Dioxide 25.9 Anion Gap 11 BUN 7 L Creatinine 0.9 Estim Creat Clear Calc 41.4 L eGFR > 60 BUN/Creatinine Ratio 8 L Glucose 92 Calculated Osmolality 286 Calcium 8.8 Corrected Calcium 9.4 Phosphorus 3.9 Magnesium 1.7 Total Bilirubin 0.2 L AST 23 ALT 11 Alkaline Phosphatase 90 Total Protein 5.8 Albumin 3.2 L Globulin 2.6 Albumin/Globulin Ratio 1.2 Quality Measures Quality Measures none Advance care planning discussed with:: other Assessment & Plan Assessment Current Active Medications: Generic Name Dose Route Start Last Admin Trade Name Freq PRN Reason Stop Dose Admin Acetaminophen 325 mg 01/13/25 05:46 Acetaminophen Supp 325 Mg Supp MA 02/12/25 05:59 Q6H PRN fever >100 or pain 1-3 Protocol Amiodarone HCl 200 mg 01/13/25 09:00 01/15/25 09:24 Amiodarone Hcl 200 Mg Tablet GT 02/12/25 08:59 200 mg BID JOHNY Administration Atorvastatin Calcium 20 mg 01/15/25 21:00 Atorvastatin Calcium 20 Mg Tablet GT 02/12/25 20:59 HS JOHNY Balsam [place] Oil 0 gm 01/13/25 21:00 01/15/25 09:36 Balsam [place] Oil (Venelex) 60 Gm Tube TOP 02/12/25 20:59 1 applicatio BID JOHNY Administration Dextrose 25 ml 01/13/25 09:29 Dextrose 50%-Water Inj 50 Ml Syringe IV 02/12/25 09:28 Q15MIN PRN BG 50-70 responsive npo pt Dextrose 50 ml 01/13/25 09:29 Dextrose 50%-Water Inj 50 Ml Syringe IV 02/12/25 09:28 Q15MIN PRN BG <50 OR BG <70 & pt unresponsive Docusate Sodium 100 mg 01/13/25 05:46 Docusate Sod Liqd 100 Mg/10 Ml Udc GT 02/12/25 08:59 BID PRN constipation Protocol Glucagon 1 mg 01/13/25 09:29 Glucagon Inj 1 Mg Vial IM Q15MIN PRN BG <70, and no IV access Piperacillin/Tazobactam/Dextrose 3.375 gm in 50 mls @ 12.5 mls/hr 01/15/25 14:00 01/15/25 14:20 Zosyn IV 01/22/25 13:59 12.5 mls/hr Q8HR JOHNY Administration Levetiracetam 1,000 mg 01/15/25 12:45 01/15/25 13:12 Levetiracetam Inj 100 Mg/Ml Vial 5ml IVP 02/14/25 12:44 1,000 mg Q12HR JOHNY Administration Levothyroxine Sodium 112 mcg 01/13/25 07:00 01/13/25 08:19 Levothyroxine Sodium 112 Mcg Tablet GT 02/12/25 06:59 Not Given ACBR JOHNY Metoprolol Tartrate 50 mg 01/13/25 09:00 01/15/25 09:24 Metoprolol Tartrate 25 Mg Tablet GT 02/12/25 08:59 50 mg BID JOHNY Administration Ondansetron HCl 4 mg 01/13/25 02:27 Ondansetron Inj 2 Mg/Ml Inj 2 Ml IV 02/12/25 02:26 Q4HR PRN NAUSEA OR VOMITING Pharmacy Consult 1 each 01/15/25 08:10 Pharmacy Renal Dose Adjustment 1 Ea XX 02/14/25 08:09 PRN PRN CONSULT Plan Ade Awan is a 79-y/o female with a PMHx of CVA (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 #Seizures #Status epilepticus Seizure at SNF, in ambulance, and with telenuro -> status epilepticus Has history of status epilepticus requiring intubation and has home Keppra of 500 mg BID. ? Neurology consulted, appreciate recs ? EEG showed diffuse slowing with periodic lateralized epileptic discharges in right cerebral hemisphere ? Second EEG obtained, will follow-up ? Depakote discontinued ? Keppra 750 mg liquid twice daily increased to Keppra 1,000 mg IV BID ? If to seize again: load with Vimpat 200 mg x1 followed by Vimpat 100 mg BID, per teleneuro #CVA rule out #History of strokes (ischemic with hemorrhagic conversion) Stroke needs to be ruled out considering multiple risk factors (HTN, HLD, A-fib) CTA head/neck (-) for LVO. CT head without hemorrhage. MRI: 25 mm focus restricted diffusion right frontal lobe, as seen in 12/2024 Echo: 55-60%, grade 1 diastolic dysfunction ? Neurology consulted, appreciate recs ? Speech therapy ? Continue with PT ? Hold antiplatelets/AC for at least 2 months given recent intracerebral hemorrhage ? Lipitor 20 mg #Urinary tract infection UA: 144 white cells, rare bacteria, LE and nitrate (+). Hx of pansenstive E coli. ? Rocephin 1 g IV daily -> zosyn 3.375 g IV q8hr ? Blood culture 01/13: NGTD ? Urine culture 01/13: ESBL E. coli sensitive to #Chronic A-fib #Demand ischemia, resolved #Hx of UE DVT Troponin 0.105 -> 0.14. No AC due to history of hemorrhagic conversion. ? Resumed home Amiodarone 200 mg twice daily via G-tube ? Metoprolol tartrate 50 mg GT BID #Hypomagnesemia, resolved #History of hypertension #History of hyperlipidemia Most recent lipid panel shows total cholesterol 175, triglycerides 208, LDL 93 Has home nifedipine 30 mg PO daily, BP currently stable ? Resumed home Lipitor 20 mg #History of hypothyroidism TSH 6.14 and free T4 2.16. Previous TSH noted to be significantly elevated at 59 with free T4 wnl. ? Holding home Synthroid 112 mcg daily as free T4 supratherapeutic #? Diabetes mellitus A1c 4.8% #History of PEG tube Placed due to decreased PO intake an apparently dysphagia but has since been eating mechanically altered diet. ? Tube feedings: Pro Stat sugar free 30 mL ? Follow-up speech evaluation Hospital management: Disposition: pending EEG, echo Diet: Pro Stat sugar free 30 mL Lines: PIV DVT prophylaxis: SCDs GI prophylaxis: none Avalos: placed CODE STATUS: full code ----- Plan discussed with attending physician Dr. Jay and senior resident physician Dr. Gardenia Monzon MD PGY-1 Internal Medicine Attending Provider Attestation/Addendum I have examined the patient, reviewed labs and imaging findings, discussed the case with the resident(s), and reviewed entered orders. I agree with the plan of care as outlined in this note, with these additional summaries/recommendations: Patient and daughter seen at bedside. No acute overnight events. Patient admitted for seizure activity and status epilepticus. New onset seizures. EEG is abnormal with diffuse slowing and periodic lateralized epileptiform discharges suggestive of seizures. Antiepileptic regimen continues to be adjusted and currently on Keppra 1000 mg IV twice daily. Patient received a trial of Depakote although appears to make patient sleepy and discontinued. We will continue seizure precautions and monitor for any further episodes. We will repeat EEG today to monitor for any further like seizure activity. MRI was negative for acute hemorrhage or mass effect. Echocardiogram revealed EF 55 to 60% and grade 1 diastolic dysfunction. Continue IV Rocephin for urinary tract infection. Urine culture grew pansensitive E. coli. Continue amiodarone for chronic atrial fibrillation and not currently on anticoagulation given previous bleed. Continue tube feeds and free water flushes. Holding home Synthyroid as TSH significantly elevated. Patient and family updated on the plan and agreement. All questions answered to satisfaction. Repeat hematology and chemistry panel in AM. Dr. Misty MD
[2025-01-15] MEDS: ATORVASTATIN CALCIUM 20 MG TABLET GT (20:34)
[2025-01-16] VITALS (11 sets, daily range): BP systolic 136–145; BP diastolic 54–92; PULSE 67–70; RESP 16–17; TEMP 36.3–36.8; O2SAT 95–99
[2025-01-16] MEDS: PIPER/TAZO 3.375 GM PREMIX 3.375 GM/50 ML BAG IV ×3 (05:27→21:00)
[2025-01-16 07:12] LABS: Alanine Aminotransferase 9 U/L (10-49); Albumin, Serum 2.8 gm/dL (3.4-4.8); Albumin/Globulin Ratio 1.2 (1.2-2.2); Alkaline Phosphatase 84 U/L (46-116); Anion Gap 11 (7-16); Aspartate Amino Transferase 20 U/L (0-34); BUN/Creatinine Ratio 9 Ratio (12-20); Bilirubin,Total 0.2 mg/dL (0.3-1.2); Blood Urea Nitrogen 9 mg/dL (9-23); Calcium 8.3 mg/dL (8.3-10.6); Calcium (Corrected) 9.3 mg/dL (8.5-10.1); Carbon Dioxide 25.5 mMol/L (20.0-31.0); Chloride 107 mMol/L (98-107); Estimated Creatinine Clearance 37.3 mL/min (>60); Globulin 2.3 gm/dL (2.3-3.5); Glucose 104 mg/dL (74-106); Magnesium 2.1 mg/dL (1.6-2.6); Osmolality,Calculated 283 (275-295); Phosphorous 3.8 mg/dL (2.4-5.1); Potassium 4.6 mMol/L (3.4-5.1); Sodium 143 mMol/L (136-145); Total Protein 5.1 gm/dL (5.7-8.2); eGFR 57 See Note
[2025-01-16 07:21] LABS: Basophils % (Auto) 1 % (0-2.5); Eosinophils # (Auto) 0.4 Thou/mm3 (0.0-0.5); Eosinophils % (Auto) 8 % (0-10); Hematocrit 36.5 % (36.0-46.0); Immature Granulocytes % (Auto) 0 % (0-0); Immature Granulocytes Auto 0.02 Thou/mm3 (0.00-0.00); Lymphocytes % (Auto) 18 % (10-50); Mean Corpuscular HGB Conc 32.9 g/dl (31.0-37.0); Mean Corpuscular Hemoglobin 30.1 pg (25.0-35.0); Mean Corpuscular Volume 92 fL (80-100); Monocytes # (Auto) 0.6 Thou/mm3 (0.0-0.8); Monocytes % (Auto) 10 % (0-12); Neutrophils # (Auto) 3.3 Thou/mm3 (1.8-7.7); Neutrophils % (Auto) 62 % (37-80); Nucleated Red Blood Cell % 0 /100 WBC (0); Platelet Count 193 Thou/mm3 (140-440); RDW Standard Deviation 46.8 fL (36.4-46.3); Red Blood Count 3.99 Miln/mm3 (4.00-5.20); White Blood Count 5.3 Thou/mm3 (3.6-11.0)
[2025-01-16 08:55] LABS: Free T4 (Free Thyroxine) 1.51 ng/dL (0.89-1.76)
[2025-01-16] MEDS: METOPROLOL TARTRATE 25 MG TABLET 50 MG GT ×2 (10:02→20:34)
[2025-01-16] MEDS: levETIRAcetam INJ 100 MG/ML VIAL 5ML 1000 MG IVP ×2 (10:02→20:18)
[2025-01-16] MEDS: AMIODARONE HCL 200 MG TABLET GT ×2 (10:03→20:35)
[2025-01-16] MEDS: BALSAM PERU/CASTOR OIL (Venelex) 60 GM TUBE TOP ×2 (10:04→20:18)
--- NOTE | 2025-01-16 12:20 | ESPR_ITS ---
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 Had second seizure en route and was given 0.8 mg of Versed. In ED, she was given 2 mg ativan as well as 3 g of Keppra and teleneuro consulted of which she was observed to have a third seizure. CTA head/neck without LVO. CT head without acute hemorrhage and noted subacute R-sided infarct (noted on 12/17/2024). Per teleneuro recs, increase home Keppra from 500 to 750 BID and vimpat 200 mg x1 followed by 100 mg BID if to have recurrent seizure. 01/13: Seen and examined at bedside in ED. Given recent administration of versed, ativan, and keppra patient was not alert and unable to provide additional history, but daughter was present. Daughter states that at baseline, patient can have normal conversations and is A&Ox3, but does have residual L- sided deficits and has been working with physical therapy. Daughter also states concerns whether or not patient regularly receives her keppra at her SNF and will follow-up. Prior to episodes today, she was at her baseline as of yesterday but was noted to have a UTI per UA in ED. TSH and free T4 noted to be elevated while on synthyroid, so will hold. Troponin mildly elevated at 1.05 and will trend, but likely secondary to seizures. CK within normal limits. 01/14: Seen and examined at bedside on medical floor with daughter present. No acute overnight events noted and no additional seizure episodes noted. Patient is alert and oriented at bedside x 3 which is much improved compared to yesterday does not have any complaints. 01/15: Seen and examined at bedside on medical floors with daughter present. No acute overnight events noted and no additional seizure episodes noted. Patient alert and orientated at bedside x3, which daughter is relieved as she felt that patient become more sleepy/somnolent after being on depakote and keppra. EEG done today and will follow-up. 01/16: Seen and examined at bedside on medical floors with daughter present. No acute overnight events noted. Upon further questioning, daughter states that after EEG was taken, in-house neurologist stated that patient still seems to be having seizure activity. Thus, Depakote was discontinued and she was placed back on Keppra but at 1 g twice daily. Per neurologist, will observe for 1 more day and if seizure-free then can discharge tomorrow. Additionally, encouraged daughter to have patient undergo speech evaluation in order for us to discharge with diet recommendations so that patient can resume eating PO. Exam Vital Signs Temp Pulse Resp BP Pulse Ox O2 Del Method O2 Flow Rate 97.8 F 69 16 138/86 H 98 Room Air 4 01/16/25 12:00 01/16/25 12:00 01/16/25 12:00 01/16/25 12:00 01/16/25 12:00 01/16/25 12:01/16/25 04:00 Narrative Exam General: Alert and oriented x 3, speaks in 2-3 word sentences in low volume and dysarthric HEENT: NC/AT, mucous membranes moist, bilateral sclera anicteric Cardiovascular: regular rate and rhythm, S1/S2 present, no murmurs appreciated Pulmonary: clear to auscultation bilaterally, no rales/rhonchi/wheezes Abdominal: soft, non-tender, non-distended, G-tube in place Musculoskeletal: normal ROM, no peripheral edema Skin: warm and dry, intact, no rashes Neuro: ? Strength 0/5 in left upper and lower extremities (daughter states this is patient's new baseline after leaving rehab) ? Strength 3/5 in right upper and lower extremities Objective Labs 01/16/25 07:06 01/16/25 04:54 Labs: Laboratory Results - last 24 hr 01/16/25 01/16/25 04:54 07:06 WBC 5.3 RBC 3.99 L Hgb 12.0 Hct 36.5 MCV 92 MCH 30.1 MCHC 32.9 RDW Std Deviation 46.8 H Plt Count 193 D Neut % (Auto) 62 Lymph % (Auto) 18 [place] % (Auto) 10 Eos % (Auto) 8 Baso % (Auto) 1 Neut # (Auto) 3.3 Lymph # (Auto) 1.0 [place] # (Auto) 0.6 Eos # (Auto) 0.4 Baso # (Auto) 0.0 Immature Gran # (Auto) 0.02 H Absolute Nucleated RBC 0.00 Immature Gran % 0 Nucleated RBC % 0 Sodium 143 Potassium 4.6 D Chloride 107 Carbon Dioxide 25.5 Anion Gap 11 BUN 9 Creatinine 1.0 Estim Creat Clear Calc 37.3 L eGFR 57 L BUN/Creatinine Ratio 9 L Glucose 104 Calculated Osmolality 283 Calcium 8.3 Corrected Calcium 9.3 Phosphorus 3.8 Magnesium 2.1 Total Bilirubin 0.2 L AST 20 ALT 9 L Alkaline Phosphatase 84 Total Protein 5.1 L Albumin 2.8 L Globulin 2.3 Albumin/Globulin Ratio 1.2 Free T4 1.51 Quality Measures Quality Measures none Advance care planning discussed with:: patient and child Assessment & Plan Assessment Current Active Medications: Generic Name Dose Route Start Last Admin Trade Name Freq PRN Reason Stop Dose Admin Acetaminophen 325 mg 01/13/25 05:46 Acetaminophen Supp 325 Mg Supp [place] 02/12/25 05:59 Q6H PRN fever >100 or pain 1-3 Protocol Amiodarone HCl 200 mg 01/13/25 09:00 01/16/25 10:03 Amiodarone Hcl 200 Mg Tablet GT 02/12/25 08:59 200 mg BID JOHNY Administration Atorvastatin Calcium 20 mg 01/15/25 21:00 01/15/25 20:34 Atorvastatin Calcium 20 Mg Tablet GT 02/12/25 20:59 20 mg HS JOHNY Administration Balsam [place] Oil 0 gm 01/13/25 21:00 01/16/25 10:04 Balsam [place] Oil (Venelex) 60 Gm Tube TOP 02/12/25 20:59 1 applicatio BID JOHNY Administration Dextrose 25 ml 01/13/25 09:29 Dextrose 50%-Water Inj 50 Ml Syringe IV 02/12/25 09:28 Q15MIN PRN BG 50-70 responsive npo pt Dextrose 50 ml 01/13/25 09:29 Dextrose 50%-Water Inj 50 Ml Syringe IV 02/12/25 09:28 Q15MIN PRN BG <50 OR BG <70 & pt unresponsive Docusate Sodium 100 mg 01/13/25 05:46 Docusate Sod Liqd 100 Mg/10 Ml Udc GT 02/12/25 08:59 BID PRN constipation Protocol Glucagon 1 mg 01/13/25 09:29 Glucagon Inj 1 Mg Vial IM Q15MIN PRN BG <70, and no IV access Piperacillin/Tazobactam/Dextrose 3.375 gm in 50 mls @ 12.5 mls/hr 01/15/25 14:00 01/16/25 05:27 Zosyn IV 01/22/25 13:59 12.5 mls/hr Q8HR JOHNY Administration Levetiracetam 1,000 mg 01/15/25 12:45 01/16/25 10:02 Levetiracetam Inj 100 Mg/Ml Vial 5ml IVP 02/14/25 12:44 1,000 mg Q12HR JOHNY Administration Levothyroxine Sodium 112 mcg 01/13/25 07:00 01/13/25 08:19 Levothyroxine Sodium 112 Mcg Tablet GT 02/12/25 06:59 Not Given ACBR JOHNY Metoprolol Tartrate 50 mg 01/13/25 09:00 01/16/25 10:02 Metoprolol Tartrate 25 Mg Tablet GT 02/12/25 08:59 50 mg BID JOHNY Administration Ondansetron HCl 4 mg 01/13/25 02:27 Ondansetron Inj 2 Mg/Ml Inj 2 Ml IV 02/12/25 02:26 Q4HR PRN NAUSEA OR VOMITING Pharmacy Consult 1 each 01/15/25 08:10 Pharmacy Renal Dose Adjustment 1 Ea XX 02/14/25 08:09 PRN PRN CONSULT Plan Ade Awan is a 79-y/o female with a PMHx of 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 #Seizures #Status epilepticus Seizure at SNF, in ambulance, and with telenuro -> status epilepticus Has history of status epilepticus requiring intubation and has home Keppra of 500 mg BID. ? Neurology consulted, appreciate recs ? EEG showed diffuse slowing with periodic lateralized epileptic discharges in right cerebral hemisphere ? Second EEG obtained, will follow-up ? Depakote discontinued ? Keppra increased from 750 to 1,000 mg IV BID ? Continue to monitor for 1 more day and if stable can discharge tomorrow ? If to seize again: load with Vimpat 200 mg x1 followed by Vimpat 100 mg BID, per teleneuro #CVA rule out #History of strokes (ischemic with hemorrhagic conversion) Stroke needs to be ruled out considering multiple risk factors (HTN, HLD, A-fib) CTA head/neck (-) for LVO. CT head without hemorrhage. MRI: 25 mm focus restricted diffusion right frontal lobe, as seen in 12/2024 Echo: 55-60%, grade 1 diastolic dysfunction ? Neurology consulted, appreciate recs ? Speech therapy ? Continue with PT ? Hold antiplatelets/AC for at least 2 months given recent intracerebral hemorrhage ? Lipitor 20 mg #Urinary tract infection UA: 144 white cells, rare bacteria, LE and nitrate (+). Hx of pansenstive E coli. ? Zosyn 3.375 g IV q8hr ? Blood culture 01/13: NGTD ? Urine culture 01/13: ESBL E. coli sensitive to zosyn #Chronic A-fib #Demand ischemia, resolved #Hx of UE DVT Troponin 0.105 -> 0.14. No AC due to history of hemorrhagic conversion. ? Resumed home Amiodarone 200 mg twice daily via G-tube ? Metoprolol tartrate 50 mg GT BID #Hypomagnesemia, resolved #History of hypertension #History of hyperlipidemia Most recent lipid panel shows total cholesterol 175, triglycerides 208, LDL 93 Has home nifedipine 30 mg PO daily, BP currently stable ? Resumed home Lipitor 20 mg #History of hypothyroidism TSH 6.14 and free T4 2.16. Previous TSH noted to be significantly elevated at 59 with free T4 wnl. Thus, although free T4 is elevated, possible that just need down titrate levothyroxine. ? Restarted levothyroxine at 100 mcg GT ACBR #? Diabetes mellitus A1c 4.8% #History of PEG tube Placed due to decreased PO intake an apparently dysphagia but has since been eating mechanically altered diet. ? Tube feedings: Pro Stat sugar free 30 mL ? Follow-up speech evaluation for clarification if patient can start PO diet Hospital management: Disposition: can DC tomorrow if seizure-free Diet: Pro Stat sugar free 30 mL Lines: PIV DVT prophylaxis: SCDs GI prophylaxis: none Avalos: placed CODE STATUS: full code ----- Plan discussed with attending physician Dr. Townsend and senior resident physician Dr. Gardenia Monzon MD PGY-1 Internal Medicine Attending Provider Attestation/Addendum I have examined the patient, reviewed labs and imaging findings, discussed the case with the resident(s), and reviewed entered orders. I agree with the plan of care as outlined in this note, with these additional summaries/recommendations: Patient seen and examined at bedside. Discussed case with neurology who recommends continuing patient on Keppra and observing for 1 more day for seizure activity. Second EEG returned abnormal and decision was made to transition patient back to Keppra. Possible discharge in next 24 to 48 hours if no additional seizure activity. Kobi Townsend MD
--- NOTE | 2025-01-16 14:08 | PC.NURSE ---
Dr. Monzon made aware pt. is confused and fixated on pulling at brown. RN recs mittens and pt. family okay with this to keep pt. from pulling at lines. Dr. Monzon orders mittens. Dr. Monzon at bedside and assessed pt., per Dr. Monzon pt. at baseline for his assessment.
--- NOTE | 2025-01-16 14:39 | PC.SS ---
Rounding: Pending EEG results
--- NOTE | 2025-01-16 17:00 | PC.NURSE ---
[facility] entering tylenol as GT route.
[2025-01-16] MEDS: ACETAMINOPHEN SOL 325 MG/10 ML UDC 650 MG GT (17:18)
--- NOTE | 2025-01-16 17:30 | PC.NURSE ---
Dr. Rolon made aware of pt. status and made aware of pt. confused episode today. No new orders received.
[2025-01-16] MEDS: ATORVASTATIN CALCIUM 20 MG TABLET GT (20:17)
--- NOTE | 2025-01-16 21:04 | PD.VPROG1 ---
Telemedicine visit statement This visit was conducted with the use of phone was obtained on 01/16/25 at 2104. Documentation for date of: 01/16/25 Subjective Subjective Interval history: Patient is in MedSurg. Her mental status is reportedly improved today compared to yesterday, she is more awake and alert and is able to participate in conversation. Continues to have left dense hemiplegia, tolerating oral diet well. Virtual exam Vital Signs Temp Pulse Resp BP Pulse Ox O2 Del Method O2 Flow Rate 98.2 F 68 17 144/84 H 96 Room Air 4 01/16/25 17:18 01/16/25 20:35 01/16/25 16:00 01/16/25 20:35 01/16/25 16:00 01/16/25 16:00 01/16/25 04:00 Objective Labs 01/16/25 07:06 01/16/25 04:54 Labs: Laboratory Results - last 24 hr 01/16/25 01/16/25 04:54 07:06 WBC 5.3 RBC 3.99 L Hgb 12.0 Hct 36.5 MCV 92 MCH 30.1 MCHC 32.9 RDW Std Deviation 46.8 H Plt Count 193 D Neut % (Auto) 62 Lymph % (Auto) 18 Dickenson % (Auto) 10 Eos % (Auto) 8 Baso % (Auto) 1 Neut # (Auto) 3.3 Lymph # (Auto) 1.0 Dickenson # (Auto) 0.6 Eos # (Auto) 0.4 Baso # (Auto) 0.0 Immature Gran # (Auto) 0.02 H Absolute Nucleated RBC 0.00 Immature Gran % 0 Nucleated RBC % 0 Sodium 143 Potassium 4.6 D Chloride 107 Carbon Dioxide 25.5 Anion Gap 11 BUN 9 Creatinine 1.0 Estim Creat Clear Calc 37.3 L eGFR 57 L BUN/Creatinine Ratio 9 L Glucose 104 Calculated Osmolality 283 Calcium 8.3 Corrected Calcium 9.3 Phosphorus 3.8 Magnesium 2.1 Total Bilirubin 0.2 L AST 20 ALT 9 L Alkaline Phosphatase 84 Total Protein 5.1 L Albumin 2.8 L Globulin 2.3 Albumin/Globulin Ratio 1.2 Free T4 1.51 Assessment & Plan Assessment 1) 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 MRI brain showed findings consistent with large old infarct in the right frontal and parietal area. Will hold off on antiplatelet/anticoagulant therapy for at least 2 months because of the recent intracerebral hemorrhage event. (2) altered mental status with abnormal EEG: As the EEG showed periodic lateralized epileptiform discharges in the right cerebral hemisphere, I have discontinued the Depakote and increase the Keppra dose to 1000 mg twice a day. Will continue to monitor her closely (3) Hypertension: Continue with aggressive blood pressure manage
[2025-01-17] VITALS (7 sets, daily range): BP systolic 141–162; BP diastolic 81–86; PULSE 64–70; RESP 18–23; TEMP 36.1–36.7; O2SAT 95–98
[2025-01-17] MEDS: PIPER/TAZO 3.375 GM PREMIX 3.375 GM/50 ML BAG IV ×2 (05:05→14:16)
[2025-01-17 05:50] LABS: Basophils % (Auto) 0 % (0-2.5); Eosinophils # (Auto) 0.4 Thou/mm3 (0.0-0.5); Eosinophils % (Auto) 7 % (0-10); Hematocrit 34.6 % (36.0-46.0); Hemoglobin 11.2 g/dL (12.0-16.0); Immature Granulocytes % (Auto) 0 % (0-0); Immature Granulocytes Auto 0.02 Thou/mm3 (0.00-0.00); Lymphocytes # (Auto) 1.1 Thou/mm3 (1.0-4.8); Lymphocytes % (Auto) 20 % (10-50); Mean Corpuscular HGB Conc 32.4 g/dl (31.0-37.0); Mean Corpuscular Hemoglobin 29.5 pg (25.0-35.0); Mean Corpuscular Volume 91 fL (80-100); Monocytes # (Auto) 0.5 Thou/mm3 (0.0-0.8); Monocytes % (Auto) 9 % (0-12); Neutrophils # (Auto) 3.6 Thou/mm3 (1.8-7.7); Neutrophils % (Auto) 63 % (37-80); Nucleated Red Blood Cell % 0 /100 WBC (0); Platelet Count 233 Thou/mm3 (140-440); RDW Standard Deviation 46.3 fL (36.4-46.3); White Blood Count 5.8 Thou/mm3 (3.6-11.0)
[2025-01-17] MEDS: LEVOTHYROXINE SODIUM 100 MCG TABLET GT (06:20)
[2025-01-17 06:33] LABS: Alanine Aminotransferase 8 U/L (10-49); Albumin/Globulin Ratio 1.2 (1.2-2.2); Alkaline Phosphatase 87 U/L (46-116); Anion Gap 8 (7-16); Aspartate Amino Transferase 13 U/L (0-34); BUN/Creatinine Ratio 12 Ratio (12-20); Bilirubin,Total 0.2 mg/dL (0.3-1.2); Blood Urea Nitrogen 11 mg/dL (9-23); Calcium 8.5 mg/dL (8.3-10.6); Calcium (Corrected) 9.3 mg/dL (8.5-10.1); Carbon Dioxide 28.1 mMol/L (20.0-31.0); Chloride 105 mMol/L (98-107); Creatinine (Component) 0.9 mg/dL (0.6-1.3); Estimated Creatinine Clearance 41.4 mL/min (>60); Globulin 2.5 gm/dL (2.3-3.5); Glucose 103 mg/dL (74-106); Magnesium 1.7 mg/dL (1.6-2.6); Osmolality,Calculated 280 (275-295); Potassium 4.5 mMol/L (3.4-5.1); Sodium 141 mMol/L (136-145); Total Protein 5.5 gm/dL (5.7-8.2); eGFR > 60 See Note
[2025-01-17] MEDS: AMIODARONE HCL 200 MG TABLET GT (08:42)
[2025-01-17] MEDS: METOPROLOL TARTRATE 25 MG TABLET 50 MG GT (08:43)
[2025-01-17] MEDS: levETIRAcetam INJ 100 MG/ML VIAL 5ML 1000 MG IVP (08:44)
[2025-01-17] MEDS: BALSAM PERU/CASTOR OIL (Venelex) 60 GM TUBE TOP (08:45)
[2025-01-17] MEDS: NYSTATIN PWD 15 GM BTL TOP (08:45)
--- NOTE | 2025-01-17 10:39 | PCS.ST ---
This ST attempted swallow evaluation for the 4th time (01/13 @ 4:00 pt not alert, under medication; 01/14 8:00am pt was asleep, daughter asked to comeback during lunchtime; 01/14 @ 11:30 pt was asleep, daughter unable to wake her up. 01/16 swallow evaluation attempted by another ST, recommended to keep NPO due to pt alertness fluctuated impacting overall safety . 01/17 Swallow evaluation attempted, pt asleep, daughter unable to wake her up. Daughter insists pt is able to tolerate po diet, and does not want for her mother to continue nutrition by PEG tube. Unfortunately, due to the patient decreased state of consciousness a swallowing evaluation has not been completed for this reason at this point a po diet is not recommended. It is unsure if pt is at her baseline now. Case discussed at length with daughter, it was recommended to request ST at living facility a swallowing assessment or an MBSS once patient is more alert. Per chart, Ade Awan is a 79-y/o female with a PMHx of CVA (10/2024 with hemorrhagic conversion and residual L-sided deficits, 12/2024), seizures (admitted 12/14 for status epilepticus requiring intubation), a-fib (not on A/C 2/2 hemorrhagic conversion), HTN, HLD, and hypothyroidism who presents from [facility] for seizure-activity for ~30 seconds at ~1:40 AM. Had second seizure en route and was given 0.8 mg of Versed. In ED, she was given 2 mg ativan as well as 3 g of Keppra and teleneuro consulted of which she was observed to have a third seizure. CTA head/neck without LVO. CT head without acute hemorrhage and noted subacute R-sided infarct (noted on 12/17/2024).
[2025-01-17] MEDS: Magnesium Sulfate 2 GM Ivpb 2 GM/50 ML BAG IV (10:41)
--- NOTE | 2025-01-17 11:03 | PC.SS ---
Addendum entered by Shelly Vicente 01/17/25 15:05: VAISHALI faxed clinicals to Admission CoordinatorYun from [facility]. VAISHALI completed transportation with [facility]. ETA 1730. VAISHALI notified Too. Original Note: Social Montes (VAISHALI) Shelly met with patient and her daughter, Cat at bedside. Patient was asleep. VAISHALI completed discharge planning discussion with Cat. Cat appeared upset and was crying at the time. Cat reported that she felt like the speech therapist did not complete a full evaluation and was unhappy with the results. Patient had requested to Cat that she not be placed on artificial means of nutrition. Information discussed with Nicanor UMAÑA who will contact Speech Therapist for evaluation. Discharge plan remains the same, patient will return to [facility]. Patient will need assistance with transportation. No discharge orders were placed at this time.
--- NOTE | 2025-01-17 13:09 | ESDS_ITS ---
<Statement entered by Kobi Townsend MD - 01/18/25 10:00> Patient seen and examined with resident, agree with assessment and plan as dictated. Patient cleared for discharge today and will send additional doses of augmentin and rx for seizure control. advised to followup with PCP and with neurology within 1-2 weeks. return to ER if return of seizures or if new symptoms arise. Kobi Townsend MD Planned Discharge Date 01/17/25 DS: Providers Provider Date of admission: 01/13/25 05:29 Primary care physician: Will Duron MD Admitting Provider: Destinee Patel MD Attending Provider on Admission: Richard Jay MD Consults: 01/13/25 02:28 Consult to Neurology / Tele-Neurology Routine Comment: Consulting Provider: [facility] 01/13/25 02:34 Consult to Neurology / Tele-Neurology Routine Comment: Consulting Provider: [facility] 01/13/25 05:34 Consult to Neurology / Tele-Neurology Routine Comment: Consulting Provider: Charles Rolon Referral Physical Therapy Routine Comment: Physician Instructions: Referral Speech Therapy Routine Comment: 01/13/25 06:22 Referral Registered Dietitian Routine Comment: 01/13/25 16:27 Referral Registered Dietitian Routine Comment: Stage 2 to coccyx Referral Wound Care Routine Comment: 01/16/25 08:00 Referral - [employer] Routine Comment: Maycol Bryan 01/16/25 22:09 Referral Wound Care Routine Comment: Attending Provider on DC: Richard Jay MD Discharging Provider: Richard Jay MD DS: Diagnosis Problem List Completed Was Problem List Reviewed/Reconciled?: Yes Hospital Course Hospital Course Hospital course: DC Summary This patient is a 79-year-old female with past medical history of CVA [10/27 with hemorrhagic conversion and residual left-sided deficit, 12/29], seizures admitted on 12/14 for status epilepticus requiring intubation, A-fib not on anticoagulation secondary to hemorrhagic conversion, hypertension hyperlipidemia, hypothyroidism presented from [facility] with status epilepticus. Patient had 2 episode of seizures lasting about 30 seconds. She had second episode of status epilepticus after arrival to the hospital. She was given Versed in the ambulance. In the ED, patient received 2 mg of Ativan, 3.5 g of Keppra, 6 g of magnesium and Zosyn dose. Per patient's daughter, Keppra doses might have been missed by nursing at SNF. EEG showed diffuse slowing with periodic lateralized epileptic discharges in the right cerebral hemisphere. Neurologist recommended to discontinue Depakote and start Keppra 1000 mg twice daily. Patient remains seizure-free last 24 hours. Additionally, CVA was ruled out. Head CT and head and neck CTA was negative for acute changes. MRI brain showed 25 mm focus restricted diffusion right frontal lobe as seen on 12/29. Echo showed EF 55-60% with grade 1 diastolic dysfunction. She was also found to have ESBL UTI sensitive to Zosyn. Home medications were reconciled. PEG tube was evaluated and tube feeds were initiated per dietitian recommendations. Speech therapist attempted swallow evaluation for 4-5 times. Per speech therapist recs that every time she evaluate the patient, she remained under medication effect and is not safe to swallow with patients current alertness impacting overall safety therefore recommended another speech evaluation at rehab facility and continue nutrition by PEG tube. P.o. diet is not recommended as it is unsure if patient is at her baseline right now. PEG tube can be used for tube feedings. Augmentin was prescribed 1 tablet twice daily for 8 more days to complete course for ESBL UTI. Patient was medically stable to be discharged today. Discharge diagnoses #Seizures #Status epilepticus #CVA rule out #History of strokes (ischemic with hemorrhagic conversion) #Urinary tract infection, ESBL #Chronic A-fib #Demand ischemia, resolved #Hx of UE DVT #History of hypertension #History of hyperlipidemia #Hypomagnesemia, resolved #History of hypothyroidism #Diabetes mellitus,ruled out #History of PEG tube DC instructions: Take Augmentin 1 tablet twice daily for 8 more days to complete antibiotic course Take Keppra 1 g twice daily for seizure control Take levothyroxine 100 mcg once a day Continue all home medications as prescribed Patient be discharged to SNF Per speech therapist, patient was not safe to swallow diet therefore she recommended another speech evaluation at long-term facility Follow-up with PCP as outpatient within 2 weeks In case of emergency, call 911 or come back to the ED Patient was seen and discussed with attending physician, Dr. Kristian Varner MD, PGY 2 Time Spent with Patient Time attestation: Total time spent providing and/or coordinating discharge services: Exam Vital Signs Temp Pulse Resp BP Pulse Ox O2 Del Method O2 Flow Rate 96.9 F 64 18 148/81 H 98 Room Air 4 01/17/25 08:00 01/17/25 12:00 01/17/25 08:00 01/17/25 08:43 01/17/25 08:00 01/17/25 08:00 01/16/25 04:00 Narrative Exam General: Alert and oriented x 3, speaks in 2-3 word sentences in low volume and dysarthric HEENT: NC/AT, mucous membranes moist, bilateral sclera anicteric Cardiovascular: regular rate and rhythm, S1/S2 present, no murmurs appreciated Pulmonary: clear to auscultation bilaterally, no rales/rhonchi/wheezes Abdominal: soft, non-tender, non-distended, G-tube in place Musculoskeletal: normal ROM, no peripheral edema Skin: warm and dry, intact, no rashes Neuro: ? Strength 0/5 in left upper and lower extremities (daughter states this is patient's new baseline after leaving rehab) ? Strength 3/5 in right upper and lower extremities Discharge Plan Plan Patient Disposition: Xfer Skilled g Fac (SNF) Patient condition on transfer: Stable Care Plan Goals: Take Augmentin 1 tablet twice daily for 8 more days to complete antibiotic course Take Keppra 1 g twice daily for seizure control Take levothyroxine 100 mcg once a day Continue all home medications as prescribed Patient be discharged to SNF Per speech therapist, patient was not safe to swallow diet therefore she recommended another speech evaluation at long-term facility Follow-up with PCP as outpatient within 2 weeks In case of emergency, call 911 or come back to the ED Prescriptions/Referrals Prescriptions/Med Rec: New levetiracetam [Keppra] 1,000 mg tablet 1,000 mg PO BID Qty: 90 0RF levothyroxine 100 mcg capsule 100 mcg PO QDAY Qty: 180 0RF Rx Instructions: Give at-least 30 mins before breakfast amoxicillin-pot clavulanate 500-125 mg tablet 1 tab PO BID 8 Days Qty: 16 0RF Continued nifedipine 30 mg Tablet Extended Release 24hr 30 mg PO QDAY atorvastatin 20 mg Tablet 20 mg PO HS docusate sodium [Colace] 100 mg capsule 100 mg PO Q12HR PRN (Reason: constipation ) Rx Instructions: Hold for loose stools ezetimibe 10 mg tablet 10 mg PO .qday Patient Comments: TAKE 1 TABLET BY MOUTH EVERY DAY lidocaine 5 % adhesive patch,medicated 1 patch topical Q24H Rx Instructions: leave on most painful area for up to 12 hrs CalaSoothe 0.44-20.6 % cream in packet 1 applic topical Q6HR PRN (Reason: pain) metoprolol tartrate [Lopressor] 50 mg tablet 50 mg PO BID sennosides [senna] 8.6 mg tablet 8.6 mg PO Q12H PRN (Reason: constipation) acetaminophen [Tylenol] 325 mg tablet 650 mg feeding tube Q4H PRN (Reason: pain) amiodarone 200 mg Tablet 200 mg G-tube BID 30 Days Qty: 60 0RF Discontinued levetiracetam [Keppra] 100 mg/mL solution 500 mg PO Q12H tizanidine 2 mg capsule 2 mg PO HS levothyroxine 112 mcg capsule 112 mcg PO ACBR Qty: 30 0RF Referrals: Will Duron MD [Primary Care Provider] - Patient/Caregiver Discharge Instructions Print Language: Dominican Stand Alone Forms: Kaycee Award Info., Patient Portal Info Letter Discharge Order Discharge Orders: Discharge (Routine); Ordered 01/17/25 Ordered By: Trace Varner Quality Discharge Quality Measures VTE prophylaxis (SCDs)
--- NOTE | 2025-01-17 15:45 | PC.NURSE ---
RN called [facility] to give report @ [id number]. Report given. ETA for transportation to [facility] pt is 1207
== END 2025-01-17 17:35 | disposition skilled nursing facility (03) | DRG 101 ==
LOC: SERX 04:53 → SERHOLD 06:00 → S3NX 12:12
PROVIDERS: Student in an Organized Health Care Education/Training Program; Admitting Provider Internal Medicine; Emergency Provider Emergency Medicine; PCP Hospitalist; Visit Provider Student in an Organized Health Care Education/Training Program
DX: G40.901 Epilepsy, unspecified, not intractable, with status epilepticus (principal); N39.0 Urinary tract infection, site not specified; I48.20 Chronic atrial fibrillation, unspecified; Z16.12 Extended spectrum beta lactamase (ESBL) resistance; Z16.19 Resistance to other specified beta lactam antibiotics; I24.89 Other forms of acute ischemic heart disease; I69.354 Hemiplegia and hemiparesis following cerebral infarction affecting left non-dominant side; G93.40 Encephalopathy, unspecified; I48.0 Paroxysmal atrial fibrillation; I10 Essential (primary) hypertension; I69.30 Unspecified sequelae of cerebral infarction; E78.00 Pure hypercholesterolemia, unspecified; R13.10 Dysphagia, unspecified; E03.9 Hypothyroidism, unspecified; E83.42 Hypomagnesemia; R79.89 Other specified abnormal findings of blood chemistry; B96.20 Unspecified Escherichia coli [E. coli] as the cause of diseases classified elsewhere; Z79.890 Hormone replacement therapy; R94.01 Abnormal electroencephalogram [EEG]; Z79.899 Other long term (current) drug therapy; Z93.1 Gastrostomy status; Z86.718 Personal history of other venous thrombosis and embolism; Z99.3 Dependence on wheelchair; Z88.5 Allergy status to narcotic agent; Z88.8 Allergy status to other drugs, medicaments and biological substances; Z88.2 Allergy status to sulfonamides
CPT/HCPCS: 36415; 70450; 70496; 70498; 70544; 71045; 80053; 80307; 81001; 82550; 83036; 83605; 83735; 83880; 84100; 84439; 84443; 84484; 84703; 85025; 85610; 85730; 87040; 87077; 87081; 87086; 87186; 92610; 93005; 93306; 95816; 96360; 96361; 96365; 96368; 96375; 96376; 97162; 99291; A4649; J0696; J1953; J2060; J2543; J3475; J7030; J7040; J7050; J7999; Q9967; A9270

== ENCOUNTER 2025-03-08 16:50 | Emergency (ER) | payer MEDICARE, BC, SELFPAY ==
[2025-03-08 16:51] VITALS: BP 141/80; PULSE 59; RESP 17; TEMP 36.8; O2SAT 96
--- NOTE | 2025-03-08 16:55 | XR_ITS ---
Examination: Duplex scan of the upper extremity, unilateral left Date and time of exam: March 08, 2025 1919 hours Comparison December 21, 2024 INDICATIONS: Left arm swelling and pain today, and no longer anticoagulated Technique: Duplex scan of the extremity veins using B-mode/grayscale imaging and Doppler spectral analysis and color flow Attention is directed to internal echogenicity, compression and augmentation involving these veins, color flow assessment, spectral analysis Findings: Major deep venous structures in the extremity demonstrate normal course and caliber. There is no evidence of deep vein thrombosis. Normal color flow and spectral analysis Impression: Negative for DVT..
--- NOTE | 2025-03-08 16:56 | PD.EDADULT ---
ED General RME/HPI General Chief complaint: Extremity Injury, Upper Stated complaint: SWOLLEN LEFT ARM Time Seen by Provider: 03/08/25 16:55 Arrival date/time: 03/08/25 16:50 CC: Left upper extremity pain and swelling HPI EMS report onset 24 to 30 hours ago family member at the assisted care facility where the patient resides asked the facility to do an ultrasound to rule out a DVT however nothing was done yesterday and today now they insisted that the patient be transferred to us for further evaluation. 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 Patient thinks that it has been approximately 1-1/2 days for pain and swelling in the left upper extremity patient does not take any blood thinners. EMS reports stable vital signs en route. Upon reinterview at 1703 patient now reiterates that it has been longer than a day and states its only the upper arm that is painful particularly when they roll her to change her. Patient denies any fall. Related Data Home Medications ?Medication ?Instructions ?Recorded ?Confirmed acetaminophen 325 mg tablet 650 mg feeding tube Q4H PRN pain 12/14/24 01/13/25 (Tylenol) docusate sodium 100 mg capsule 100 mg PO Q12HR PRN constipation 12/14/24 01/13/25 (Colace) ezetimibe 10 mg tablet 10 mg PO .qday high cholesterol 12/14/24 01/13/25 lidocaine 5 % topical patch 1 patch topical Q24H 12/14/24 01/13/25 menthol 0.44 %-zinc oxide 20.6 % 1 applic topical Q6HR PRN pain 12/14/24 01/13/25 topical cream packet (CalaSoothe) metoprolol tartrate 50 mg tablet 50 mg PO BID 12/14/24 01/13/25 (Lopressor) sennosides 8.6 mg tablet (senna) 8.6 mg PO Q12H PRN constipation 12/14/24 01/13/25 atorvastatin 20 mg tablet 20 mg PO HS 01/13/25 01/13/25 nifedipine 30 mg tablet,extended 30 mg PO QDAY 01/13/25 01/13/25 release 24 hr Previous Rx's ?Medication ?Instructions ?Recorded levetiracetam 1,000 mg tablet 1,000 mg PO BID #90 tabs 01/16/25 (Keppra) levothyroxine 100 mcg capsule 100 mcg PO QDAY #180 caps 01/16/25 Allergies Allergy/AdvReac Type Severity Reaction Status Date / Time codeine Allergy Verified 12/13/24 19:10 pravastatin Allergy Verified 12/13/24 19:10 promethazine (From Phenergan) Allergy Verified 12/13/24 19:10 sulfamethoxazole (From Allergy Verified 12/13/24 19:10 Bactrim) trimethoprim (From Bactrim) Allergy Verified 12/13/24 19:10 Review of Systems Review of Systems Narrative Review of Systems: GEN: No fever, no chills, no weight loss EYES: No discharge, no visual changes, no pain HEENT: No ear pain, no congestion, no sore throat PULM: No shortness of breath, no cough, no congestion CV: No chest pain, no dyspnea on exertion, no palpitations GI: No nausea, no vomiting, no diarrhea, no pain, no constipation : No frequency, no urgency, no dysuria MUSC/SKEL: No joint pain, no back pain SKIN: No rash PSYCH: No hallucinations, no depression HEME/LYMPH: No easy bleeding or bruising tendencies NEURO: No weakness, no headache Past Medical History Past Medical History NEUROLOGIC: Positive Seizures; Negative Neurological Disorders, Cerebrovascular Accident, Transient Ischemic Attacks (TIA), Dementia, Alzheimer's Disease, Parkinson's Disease, Brain Tumor, Meningitis, Epilepsy, Multiple Sclerosis, Cerebral Palsy, Amyotrophic Lateral Sclerosis (ALS/Mia Gehrig's), Guillain-Croswell Syndrome, Spina Bifida, Paralysis, Peripheral Neuropathy, Mederos's Palsy, Subdural Hematoma, Migraine, Head Trauma, Spinal Cord Injury or Traumatic Brain Injury CARDIAC: Positive Atrial Fibrillation, Hypercholesterolemia and Hypertension; Negative Cardiac Disorders, Myocardial Infarction, Cardiac Arrhythmia, Angina, Heart Murmur, Coronary Artery Disease, Atherosclerotic Heart Disease, Peripheral Vascular Disease, Aneurysm, Congestive Heart Failure, Congenital Heart Disease, Valvular Heart Disease, Rheumatic Fever, Cardiomyopathy, Edema, Pericarditis, Cellulitis, Deep Vein Thrombosis, Hypotension or Varicose Veins RESPIRATORY: Negative Chronic Obstructive Pulmonary Disease (COPD), Asthma, Bronchitis, Emphysema, Pneumonia, Pulmonary Fibrosis, Tuberculosis, Pulmonary Embolism, Pulmonary Edema or Sleep Apnea GASTROINTESTINAL: Negative Gastrointestinal Disorders, Hepatitis, Cirrhosis, Pancreatitis, Celiac Disease, Gall Bladder Disease, Gastrointestinal Bleed, Esophageal Varices, Buchanan's Esophagus, Colitis, Ulcerative Colitis, Diverticulitis, Diverticulosis, Ulcer, Irritable Bowel, Crohn's Disease, Obstructive Bowel, Hiatal Hernia, Hemorrhoids, Gastroesophageal Reflux Disease or Obesity GENITOURINARY: Negative Genitourinary Disorders, Renal Disease, Kidney Stones, Polycystic Kidney Disease, Neurogenic Bladder, Inguinal Hernia, Dialysis or Benign Prostatic Hyperplasia REPRODUCTIVE: Negative Endometriosis, Genital Herpes, Gonorrhea, Pelvic Inflammatory Disease, Previous Pregnancies, Syphilis or Uterine Prolapse MUSCULOSKELETAL: Negative Musculoskeletal Disorders, Muscular Dystrophy, Myasthenia Gravis, Marfan's Syndrome, Arthritis, Rheumatoid Arthritis, Osteoporosis, Degenerative Disk Disease, Gout, Scoliosis, Fibromyalgia, Fractures, Degenerative Joint Disease, Osteomyelitis or Poliovirus ENT: Positive Deafness; Negative Cataracts, Glaucoma, Blind, Retinal Detachment, Macular Degeneration, Head Trauma or Eye Prosthesis ENDOCRINE: Positive Hypothyroidism; Negative Endocrine Disorders, Diabetes Mellitus Type 1, Diabetes Mellitus Type 2, Hypoglycemia, Coxsackie's Syndrome, Harrold's Disease, Hyperthyroidism, Parathyroid Disease, Pituitary Disease, Systemic Lupus Erythematosus, Syndrome of Inappropriate Antidiuretic Hormone (SIADH), Adrenal Disease or Graves' Disease HEMATOLOGIC: Negative Blood Disorders, Anemia, Leukemia, Hemophilia, Thalassemia, Sickle Cell Disease or Clotting Problems PSYCHO/SOCIAL: Negative Psychiatric Problems, Schizophrenia, Recreational Drug Use, Bipolar Disorder, Depression, Anxiety, Behavior Problems, Self-Mutilation, Attention Deficit Disorder, Attention Deficit Hyperactivity Disorder, Depression, Post Traumatic Stress Disorder or Eating Disorder OTHER HISTORY: Negative Hospitalization, Autoimmune Disease, Down Syndrome, Autism, Developmental Delay, Shingles, Falls, Blood Transfusions, Blood Transfusion Reaction, Anesthesia Reactions, Organ Transplant, Chemotherapy, Radiation Therapy, Hyperbaric Therapy, MRSA, VRSA, Vancomycin-Resistant Enterococci, Human Immunodeficiency Virus (HIV), Chicken Pox, Measles, Mumps, Rubella (Uzbek Measles), Pertussis, Clostridium Difficile or Cancer Family History FAMILY HISTORY: Positive Family Respiratory Disorders, Family Cardiac Disorders and Family Gastrointestinal Problems Surgical History SURGICAL: Negative Pacemaker, Endocrine Surgery, Thyroidectomy, Ear Surgery, Abdominal Surgery or Organ Transplant Social History SMOKING STATUS: Never smoker ED Exam Narrative Physical exam: [General: Deconditioned, in mild discomfort but not in any acute distress Head normocephalic HEENT: Within acceptable limits Neck is supple nontender Chest equal chest rise nontender to palpation Respiratory: Clear to auscultation no wheezes crackles or rubs CV: Rate rhythm is regular no murmurs rubs or clicks Abdomen is soft nontender no masses positive bowel sounds all 4 quadrants Back: No CVA tenderness no spinous process tenderness from cervical spine thoracic and lumbar spine Skin: Intact no petechiae rash induration ulceration or crepitus Extremities: Left upper extremity is frozen elbow, the patient cannot flex and extend the arm. Hands are curled, there is edema to the arm with tenderness to touch of the left upper arm. No gross abnormalities cap refills less than 2 seconds. Moving right leg and right upper extremity without complication left lower extremity is flaccid. Neuro: Awake alert oriented x2, person and place, Glascow coma 15 no focal deficits] Course Course Course Narrative: Family member who initially sent the patient over from the care facility finally showed up stating that the patient did not participate in physical therapy of the left arm which is rigid and mobile secondary to the CVA for several days. After which the patient complained of pain when PT attempted to reestablish therapy of the left arm the concern was then arose that the patient had a DVT. Imaging shows there is no DVT, x-ray show there is no fracture in the bone the patient will be discharged back to resume physical therapy. Quality Measures none Orders Category Date Time Status US venous doppler UE LT Stat Exams 03/08/25 16:55 Taken XR humerus LT MIN 2V Stat Exams 03/08/25 17:00 Completed CBC Stat Lab 03/08/25 17:37 Completed CMP [Comprehensive Metabolic Panel] Stat Lab 03/08/25 17:37 Completed PT [Prothrombin Time with INR] Stat Lab 03/08/25 17:37 Completed PTT [Partial Thromboplastin Time] Stat Lab 03/08/25 17:37 Completed Vital Signs Vital signs: Vital Signs Temperature 98.2 F 03/08/25 16:51 Pulse Rate 59 L 03/08/25 16:51 Respiratory Rate 17 03/08/25 16:51 Blood Pressure 141/80 H 03/08/25 16:51 Pulse Oximetry (%) 96 03/08/25 16:51 Oxygen Delivery Method Room Air 03/08/25 16:51 Discharge Plan Plan Patient Disposition: HOME (Self Care) Patient condition on transfer: Stable Prescriptions/Referrals Prescriptions/Med Rec: No Action nifedipine 30 mg Tablet Extended Release 24hr 30 mg PO QDAY atorvastatin 20 mg Tablet 20 mg PO HS levetiracetam [Keppra] 1,000 mg tablet 1,000 mg PO BID Qty: 90 0RF levothyroxine 100 mcg capsule 100 mcg PO QDAY Qty: 180 0RF Rx Instructions: Give at-least 30 mins before breakfast docusate sodium [Colace] 100 mg capsule 100 mg PO Q12HR PRN (Reason: constipation ) Rx Instructions: Hold for loose stools ezetimibe 10 mg tablet 10 mg PO .qday Patient Comments: TAKE 1 TABLET BY MOUTH EVERY DAY lidocaine 5 % adhesive patch,medicated 1 patch topical Q24H Rx Instructions: leave on most painful area for up to 12 hrs CalaSoothe 0.44-20.6 % cream in packet 1 applic topical Q6HR PRN (Reason: pain) metoprolol tartrate [Lopressor] 50 mg tablet 50 mg PO BID sennosides [senna] 8.6 mg tablet 8.6 mg PO Q12H PRN (Reason: constipation) acetaminophen [Tylenol] 325 mg tablet 650 mg feeding tube Q4H PRN (Reason: pain) Referrals: Will Duron MD [Primary Care Provider] - In 1 week Problem List Clinical Impression: Arm pain, left Patient/Caregiver Discharge Instructions Education Materials: Complementary Care for Pain Additional Instructions: Resume physical therapy pain is not related to a DVT or bone fracture. If there is a worsening of symptoms follow-up with your primary care provider return to the emergency room. Print Language: Gibraltarian Stand Alone Forms: Kaycee Award Info., Patient Portal Info Letter PA/PIGMENT PROCESSOR Supervising Physician PA/PIGMENT PROCESSOR Supervising Physician: Dion Mitchell ENP [facility] Clinical Information Provided by: patient and EMS [facility] Meds/Rx considered, not ordered None Labs/Rad/Tests considered, not ordered None
[2025-03-08 16:57] VITALS: PULSE 61; RESP 20; O2SAT 99; BMI 32.0
--- NOTE | 2025-03-08 17:00 | XR_ITS ---
Examination: Humerus 2 views left Technique: Humerus, AP lateral 2 views Date and time of exam: March 08, 2025, 1725 hours INDICATIONS: Onset left arm pain today. FINDINGS: Severe osteopenia. No shoulder fracture or dislocation Nonstandard views. No fracture IMPRESSION: No fracture or shoulder dislocation
[2025-03-08 17:53] LABS: Basophils # (Auto) 0.1 Thou/mm3 (0.0-0.2); Basophils % (Auto) 1 % (0-2.5); Eosinophils # (Auto) 0.5 Thou/mm3 (0.0-0.5); Eosinophils % (Auto) 5 % (0-10); Hematocrit 36.7 % (36.0-46.0); Hemoglobin 12.9 g/dL (12.0-16.0); Immature Granulocytes % (Auto) 0 % (0-0); Immature Granulocytes Auto 0.02 Thou/mm3 (0.00-0.00); Lymphocytes # (Auto) 1.9 Thou/mm3 (1.0-4.8); Lymphocytes % (Auto) 20 % (10-50); Mean Corpuscular HGB Conc 35.1 g/dl (31.0-37.0); Mean Corpuscular Hemoglobin 30.4 pg (25.0-35.0); Mean Corpuscular Volume 86 fL (80-100); Monocytes # (Auto) 0.9 Thou/mm3 (0.0-0.8); Monocytes % (Auto) 10 % (0-12); Neutrophils # (Auto) 6.3 Thou/mm3 (1.8-7.7); Neutrophils % (Auto) 65 % (37-80); Nucleated Red Blood Cell % 0 /100 WBC (0); Platelet Count 382 Thou/mm3 (140-440); RDW Standard Deviation 41.5 fL (36.4-46.3); Red Blood Count 4.25 Miln/mm3 (4.00-5.20); White Blood Count 9.7 Thou/mm3 (3.6-11.0)
[2025-03-08 18:00] VITALS: BP 134/74; PULSE 58; RESP 18; TEMP 36.5; O2SAT 99
[2025-03-08 18:06] LABS: Alanine Aminotransferase 27 U/L (10-49); Albumin, Serum 3.5 gm/dL (3.4-4.8); Albumin/Globulin Ratio 1.1 (1.2-2.2); Alkaline Phosphatase 110 U/L (46-116); Anion Gap 6 (7-16); Aspartate Amino Transferase 28 U/L (0-34); BUN/Creatinine Ratio 19 Ratio (12-20); Bilirubin,Total 0.4 mg/dL (0.3-1.2); Blood Urea Nitrogen 19 mg/dL (9-23); Calcium 8.9 mg/dL (8.3-10.6); Calcium (Corrected) 9.3 mg/dL (8.5-10.1); Carbon Dioxide 30.2 mMol/L (20.0-31.0); Chloride 96 mMol/L (98-107); Estimated Creatinine Clearance 43.8 mL/min (>60); Globulin 3.2 gm/dL (2.3-3.5); Glucose 96 mg/dL (74-106); Osmolality,Calculated 266 (275-295); Partial Thromboplastin Time 27.2 Seconds (22.0-36.0); Potassium 4.1 mMol/L (3.4-5.1); Prothrombin Time 11.4 Seconds (9.0-12.2); Sodium 132 mMol/L (136-145); Total Protein 6.7 gm/dL (5.7-8.2); eGFR 57 See Note
[2025-03-08 20:50] VITALS: BP 152/79; PULSE 60; RESP 17; TEMP 36.8; O2SAT 97
== END 2025-03-08 23:06 | disposition home or self-care (01) ==
PROVIDERS: Registered Nurse General Practice; Emergency Provider Emergency Medicine; PCP Hospitalist
DX: M79.602 Pain in left arm (principal); M79.89 Other specified soft tissue disorders
CPT/HCPCS: 36415; 73060; 80053; 85025; 85610; 85730; 93971; 99284

== ENCOUNTER 2025-04-01 16:14 | Inpatient (IN) | payer MEDICARE, BC, SELFPAY ==
[2025-04-01] VITALS (12 sets, daily range): BP systolic 141–169; BP diastolic 62–105; PULSE 64–94; RESP 14–19; TEMP 37.2–37.4; O2SAT 97–100; BMI 23.8
--- NOTE | 2025-04-01 16:58 | EDNOTE_ITS ---
ED Seizures RME/HPI General Chief Complaint: Seizure Stated Complaint: SEIZURE Time Seen by Provider: 04/01/25 16:51 Arrival date/time: 04/01/25 16:14 RME / HPI RME / HPI Narrative: 80 year old female with history of CVA, seizures, hypertension, chronic atrial fibrillation, hypothyroidism, CKD, s/p PEG tube presents to the ED [facility] from [facility] for evaluation of a seizure that occurred today. Per medics report, the patient?s daughter witnessed the seizure, which was described as full body and lasting approximately 3 minutes. Medics state on their arrival patient appeared postictal. While in the ED, the patient is awake though appears confused. She complains of nausea. No other complaints reported. The daughter mentioned the patient was evaluated by her french binding folder yesterday and told everything appeared well. Related Data Home Medications ?Medication ?Instructions ?Recorded ?Confirmed acetaminophen 325 mg tablet 650 mg feeding tube Q4H CA N pain 12/14/24 01/13/25 (Tylenol) docusate sodium 100 mg capsule 100 mg PO Q12HR PRN con stipation 12/14/24 01/13/25 (Colace) ezetimibe 10 mg tablet 10 mg PO .qday high choleste rol 12/14/24 01/13/25 lidocaine 5 % topical patch 1 patch topical Q24H 12/1401/13/25 menthol 0.44 %-zinc oxide 20.6 % 1 applic topical Q6HR PRN pain 12/14/24 01/13/25 topical cream packet (CalaSoothe) metoprolol tartrate 50 mg tablet 50 mg PO BID 12/14/24 01/13/25 (Lopressor) sennosides 8.6 mg tablet (senna) 8.6 mg PO Q12H PRN co nstipation 12/14/24 01/13/25 atorvastatin 20 mg tablet 20 mg PO HS 01/13/25 5 nifedipine 30 mg tablet,extended 30 mg PO QDAY 5 01/13/25 release 24 hr Previous Rx's ?Medication ?Instructions ?Recorded levetiracetam 1,000 mg tablet 1,000 mg PO BID #90 tabs 01/16/25 (Keppra) levothyroxine 100 mcg capsule 100 mcg PO QDAY #180 cap s 01/16/25 Allergies Allergy/AdvReac Type Severity Reaction Status Date / Time codeine Allergy Verified 12/13/24 19:10 pravastatin Allergy Verified 12/13/24 19:10 promethazine (From Phenergan) Allergy Verified 12/13/24 19:10 sulfamethoxazole (From Allergy Verified 12/13/24 19:10 Bactrim) trimethoprim (From Bactrim) Allergy Verified 12/13/24 19:10 Review of Systems Review of Systems ROS Unobtainable: unobtainable due to mental status Past Medical History Past Medical History NEUROLOGIC: Positive Cerebrovascular Accident, Seizures and Epilepsy CARDIAC: Positive Atrial Fibrillation, Hypercholesterolemia and Hypertension ENT: Positive Deafness ENDOCRINE: Positive Hypothyroidism Family History FAMILY HISTORY: Positive Family Respiratory Disorders, Family Cardiac Disorders and Family Gastrointestinal Problems Surgical History SURGICAL: Negative Pacemaker, Endocrine Surgery, Thyroidectomy, Ear Surgery or Abdominal Surgery Social History SMOKING STATUS: Never smoker ED Exam Narrative Physical exam: GENERAL APPEARANCE: Altered, appears confused, well-developed, well-nourished, no acute distress HEENT: Normocephalic, atraumatic; pupils equal, round, reactive to light; EOMI; mucous membranes pink, moist; oropharynx clear NECK: Supple LUNGS: CTABL; no wheezes, no rales, no rhonchi HEART: Regular rate, regular rhythm; normal S1, S2; no murmurs ABDOMEN: non distended; normal BS; soft, no tenderness, no guarding, no rebound; no masses, no organomegaly, no hernia BACK: no CVA tenderness EXTREMITIES: atraumatic; no edema NEUROLOGIC: Altered, appears confused; cranial nerves II-XII grossly intact; no focal sensory or motor deficits PSYCHIATRIC: appropriate mood and affect SKIN: warm, dry, normal color; no rashes Course Quality Measures none Orders Category Date Time Status EKG (ED ONLY) *Do not use* NOW Care 04/01/25 17:21 Completed EKG (ED Only) Stat Exams 04/01/25 17:21 Draft CBC Stat Lab 04/01/25 17:21 Completed CMP [Comprehensive Metabolic Panel] Stat Lab 04/01/25 17:21 Received UA, C/S IF [Urinalysis, C/S if Indicated] Stat Lab 04/01/25 16:58 Ordered Ondansetron Inj [Zofran Inj] Med 04/01/25 16:58 Discontinued 4 mg IVP X1 ONE Vital Signs Vital signs: Vital Signs Temperature 99.0 F 04/01/25 16:32 Pulse Rate 66 04/01/25 16:32 Respiratory Rate 18 04/01/25 16:32 Blood Pressure 169/62 H 04/01/25 16:32 Pulse Oximetry (%) 100 04/01/25 16:32 Oxygen Delivery Method Room Air 04/01/25 16:32 Pulse ox is 100% on room air which is adequate. Seizure MDM Narrative MDM Narrative:: Brittney Santana am scribing for and in the presence of Dr. Lobo. 1800: Patient signed out to Dr. Madison pending labs and final disposition. Patient data External records reviewed:: [facility] previous records, EMS form and Group Home records (I reviewed pmhx and medications from SNF ) Clinical information provided by:: patient Social determinants that could affect healthcare access:: housing Patient has the following chronic illnesses:: CVA, seizures, hypertension, chronic atrial fibrillation, hypothyroidism, CKD, s/p PEG tube How is presenting disease/condition affected by chronic disease/condition?: exacerbated by Evaluation data The following diagnostics were reviewed and interpreted by me:: lab results Lab and/or radiology exams considered but not ordered:: None Interpretation Summary: CBC is unremarkable, remainder of labs pending. Medications / Prescriptions Medications or Prescriptions considered but not ordered:: None Medication administrations:: Medication Administration History Discontinued Medications Ondansetron HCl (Ondansetron Inj 2 Mg/Ml Inj 2 Ml) 4 mg IVP X1 ONE; Protocol Stop: 04/01/25 16:59 Last Admin: 04/01/25 17:21 Dose: 4 mg Documented By: VG See above Consultations Consultation(s) initiated? (list below): Yes Consultation #1 (Physician, Specialty, Details): I spoke with french binding folder Dr. Lockhart. Discussed patients PMHx, HPI, ED course, exam findings, labs results. States he will come evaluate the patient in the ED. Time: 17:55 Diagnosis Seizure Differential Diagnosis: intractable seizure disorder, focal seizure, generalized seizure, epileptic seizure and status epilepticus Most likely diagnosis given after review of the tests above:: Seizure Admission Indicated Admission indicated?: not indicated Explain why admission is indicated or not indicated:: Patient signed out to Dr. Madison pending labs and final disposition. Admission Request Was there a request for admission?: No Disposition Plan Disposition Plan: other (specify) (Patient signed out to Dr. Madison ) Discharge Plan Prescriptions/Referrals Prescriptions/Med Rec: No Action nifedipine 30 mg Tablet Extended Release 24hr 30 mg PO QDAY atorvastatin 20 mg Tablet 20 mg PO HS levetiracetam [Keppra] 1,000 mg tablet 1,000 mg PO BID Qty: 90 0RF levothyroxine 100 mcg capsule 100 mcg PO QDAY Qty: 180 0RF Rx Instructions: Give at-least 30 mins before breakfast docusate sodium [Colace] 100 mg capsule 100 mg PO Q12HR PRN (Reason: constipation ) Rx Instructions: Hold for loose stools ezetimibe 10 mg tablet 10 mg PO .qday Patient Comments: TAKE 1 TABLET BY MOUTH EVERY DAY lidocaine 5 % adhesive patch,medicated 1 patch topical Q24H Rx Instructions: leave on most painful area for up to 12 hrs CalaSoothe 0.44-20.6 % cream in packet 1 applic topical Q6HR PRN (Reason: pain) metoprolol tartrate [Lopressor] 50 mg tablet 50 mg PO BID sennosides [senna] 8.6 mg tablet 8.6 mg PO Q12H PRN (Reason: constipation) acetaminophen [Tylenol] 325 mg tablet 650 mg feeding tube Q4H PRN (Reason: pain) Referrals: No Primary/Family,Physician [Primary Care Provider] - In 1 week Patient/Caregiver Discharge Instructions Print Language: Turkmen
[2025-04-01] MEDS: ONDANSETRON INJ 2 MG/ML INJ 2 ML 4 MG IVP (17:21)
--- NOTE | 2025-04-01 17:21 | EKG_ITS ---
[facility] Test Date: 2025-04-01 Pat Name: ANDRE LEVIN Department: Room: - Gender: Female Hall Clerk: : 1945 Requested By: Kim Velazquez Order Number: [id number] Reading MD: Kim Velazquez Measurements Intervals [place] Rate: 64 P: 75 VT: 148 QRS: 45 QRSD: 100 T: 44 QT: 440 QTc: 454 Interpretive Statements SINUS RHYTHM Compared to ECG 01/13/2025 04:35:17 ST (T wave) deviation no longer present /store/S0/[id number]
[2025-04-01 17:33] LABS: Basophils # (Auto) 0.2 Thou/mm3 (0.0-0.2); Basophils % (Auto) 2 % (0-2.5); Eosinophils # (Auto) 0.7 Thou/mm3 (0.0-0.5); Eosinophils % (Auto) 7 % (0-10); Hematocrit 36.7 % (36.0-46.0); Hemoglobin 12.5 g/dL (12.0-16.0); Immature Granulocytes % (Auto) 0 % (0-0); Immature Granulocytes Auto 0.03 Thou/mm3 (0.00-0.00); Lymphocytes # (Auto) 2.1 Thou/mm3 (1.0-4.8); Lymphocytes % (Auto) 21 % (10-50); Mean Corpuscular HGB Conc 34.1 g/dl (31.0-37.0); Mean Corpuscular Hemoglobin 30.7 pg (25.0-35.0); Mean Corpuscular Volume 90 fL (80-100); Monocytes # (Auto) 1.1 Thou/mm3 (0.0-0.8); Monocytes % (Auto) 11 % (0-12); Neutrophils % (Auto) 59 % (37-80); Nucleated Red Blood Cell % 0 /100 WBC (0); Platelet Count 338 Thou/mm3 (140-440); RDW Standard Deviation 43.4 fL (36.4-46.3); Red Blood Count 4.07 Miln/mm3 (4.00-5.20); White Blood Count 10.1 Thou/mm3 (3.6-11.0)
--- NOTE | 2025-04-01 18:02 | ESCONSULT_ITS ---
<Statement entered by Junior Lockhart MD - 04/02/25 17:28> I personally evaluate this for the emergency room spent more than 45 minutes with the family examination consistent with the findings of possible partial complex seizures patient is quite alert oriented however she is mental status changes frequently very sensitive to lorazepam. She is remains in sinus rhythm I reviewed the rhythm strips she has sinus bradycardia last in the 40s and high 30s while she was throwing up nausea vomiting was going on most likely vagal tone really do not think it is sick sinus syndrome patient has history of paroxysmal A-fib but no further episodes atrial fibrillation. Will monitor monitor patient overnight for any severe pauses or bradycardia for now we will just watch it for closely and monitor and low-dose lorazepam 0.25 mg can be given but should avoid high dose as she did not wake up for 3 days last time she had 1 dose of Ativan. Evaluate the patient with resident physician discussed with attending physician as well will monitor the patient closely and telemetry no need for pacemaker implantation. Agree with treatment plan recommendation as documented by Dr. 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 She is on Keppra 1g BID for seizures. Per daughter at the bedside she was visiting patient [facility] the [facility] when she suddenly developed seizure episode and ambulance was called. She was seen in cardiology office yesterday and was doing totally fine. In the ED her BP 169/62, HR 66, RR 18, temp 99F, saturation 99% on RA. CBC was unremarkable. Other labs pending. EKG showed sinus rhythm with HR 64. During evaluation ED stuff noticed HR of 38 and patient at that time reported feeling dizzy therefore cardiology was consulted. Her HR went up spontaneously to 60s. Patient was seen and examined at the bedside. She appears weak and is not maintaining eye contact, able to follow commands. She reports feeling not normal but can't specify what's the problem. During evaluation by cardiology team patient developed another episode of seizures. cc:: cc: Review of Systems Review of Systems Systems Reviewed: All systems reviewed, normal except as documented Exam Vital Signs Temp Pulse Resp BP Pulse Ox O2 Del Method 99.0 F 66 18 169/62 H 100 Room Air 04/01/25 16:32 04/01/25 16:32 04/01/25 16:32 04/01/25 16:32 04/01/25 16:32 04/01/25 16:32 Narrative Exam Gen: Well-developed and well-nourished elderly female. HEENT: NCAT, PERRLA, EOMI, MMM, anicteric conjunctivae. CVS: normal S1 and S2. RRR. Systolic murmur over aortic area. Resp: CTA B/L. No rhonchi, rales, crackles or wheezing. Abd: soft, non-tender, non-distended. BS+ in all 4 quadrants. PEG tube in place. MSK: Good ROM in BUE & BLE. No edema or rash. Neuro: unable to perform due to medical condition. Results Labs 04/01/25 17:21 04/01/25 19:02 Labs: Short CBC 04/01/25 Range/Units 17:21 WBC 10.1 (3.6-11.0) Thou/mm3 Hgb 12.5 (12.0-16.0) g/dL Hct 36.7 (36.0-46.0) % Plt Count 338 D (140-440) Thou/mm3 Quality Measures Quality Measures VTE prophylaxis Advance care planning discussed with:: patient and child Medications Home Medications and Allergies Home Medications ?Medication ?Instructions ?Recorded ?Confirmed ?Type acetaminophen 325 mg tablet 650 mg feeding tube Q4H WV N pain 12/14/24 01/13/25 History (Tylenol) docusate sodium 100 mg capsule 100 mg PO Q12HR PRN con stipation 12/14/24 01/13/25 History (Colace) ezetimibe 10 mg tablet 10 mg PO .qday high choleste rol 12/14/24 01/13/25 History lidocaine 5 % topical patch 1 patch topical Q24H 12/1401/13/25 History menthol 0.44 %-zinc oxide 20.6 % 1 applic topical Q6HR PRN pain 12/14/24 01/13/25 History topical cream packet (CalaSoothe) metoprolol tartrate 50 mg tablet 50 mg PO BID 12/14/24 01/13/25 History (Lopressor) sennosides 8.6 mg tablet (senna) 8.6 mg PO Q12H PRN co nstipation 12/14/24 01/13/25 History atorvastatin 20 mg tablet 20 mg PO HS 01/13/25 5 History nifedipine 30 mg tablet,extended 30 mg PO QDAY 5 01/13/25 History release 24 hr Allergies Allergy/AdvReac Type Severity Reaction Status Date / Time codeine Allergy Verified 12/13/24 19:10 pravastatin Allergy Verified 12/13/24 19:10 promethazine (From Phenergan) Allergy Verified 12/13/24 19:10 sulfamethoxazole (From Allergy Verified 12/13/24 19:10 Bactrim) trimethoprim (From Bactrim) Allergy Verified 12/13/24 19:10 Visit Medications Discontinued Medications Ondansetron HCl (Ondansetron Inj 2 Mg/Ml Inj 2 Ml) 4 mg IVP X1 ONE; Protocol Stop: 04/01/25 16:59 Last Admin: 04/01/25 17:21 Dose: 4 mg Assessment & Plan Plan Patient is a 79-year-old female with 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 During evaluation ED stuff noticed HR of 38 and patient at that time reported feeling dizzy therefore cardiology was consulted. Her HR went up spontaneously to 60s. #Sick sinus syndrome. - Patient had HR of 38 and at that time reported feeling dizzy. Plan: - telemetry monitoring. - echo pending. #Hx of Afib. - in sinus rhythm today. Plan: - hold home metoprolol. - do not start anticoagulation due to recent ICH. #Hx of hypertension. - BP in 160s. Plan: - resume home nifedipine. #Hx of CVA. #Hyperlipidemia. - Patient had stroke in 10/27 with hemorrhagic conversion and residual left- sided deficit. Plan: - resume home atorvastatin. Management of other problems as per primary team. Plan of care discussed with attending Dr. Lockhart. Hitesh Pearce MD, PGY 2. Disclaimer: This note was dictated by speech recognition. Minor errors in cam maker may be present due to voice recognition software.
--- NOTE | 2025-04-01 18:19 | EDNOTE_ITS ---
Emergency Room Addendum <Shelley Rose - Last Filed: 04/01/25 19:16> Addendum Narrative: I took over the care from Dr. Lobo at 6 PM on 04/01/2025, see her notes for complete H&P and ED course. I was asked to take over this patient pending labs. I reviewed all diagnostic test results. Blood tests and urine tests At this point, diagnoses include Treatment here included Significant improvement I discussed the case with our digital marketing program manager and hospitalist. About the presentation and exam and diagnostics and treatments here. And need of further care in the hospital. Will accept the patient. Jay Jay Madison MD <Jay Jay Madison MD - Last Filed: 04/01/25 21:45> Addendum Narrative: I took over the care from Dr. Lobo at 6 PM on 04/01/2025, see her notes for complete H&P and ED course. I reviewed all diagnostic test results: My interpretation of the EKG is: Sinus rhythm with no acute ST?T changes.. My review of the head CT report is: NAD. Blood tests remarkable for Mg 1.3 and TSH 64.06. UA showed positive nitrite, positive leukocyte Estrace, 13 RBC, 16 WBC, and 4+ bacteria. Pauses noted on cardiac monitoring. Recurrent seizures noted. At this point, diagnoses include: Sick sinus syndrome, recurrent seizures, UTI, hypomagnesemia, and elevated TSH. Treatment here included: Ativan, Keppra, Rocephin, and MgSO4 2 gram IV. I discussed the case with our digital marketing program manager and our hospitalist.? About the presentation and exam and diagnostics and treatments here.? And need of further care in the hospital.? Will accept the patient. Jay Jay Madison MD
[2025-04-01] MEDS: levETIRAcetam INJ 100 MG/ML VIAL 5ML 1000 MG IVP (18:24)
[2025-04-01 19:25] LABS: INR 1.1 (0.9-1.3); Partial Thromboplastin Time 22.1 Seconds (22.0-36.0); Prothrombin Time 11.7 Seconds (9.0-12.2)
[2025-04-01 19:27] LABS: B-Type Natriuretic Peptide 182 pg/mL (0-100)
[2025-04-01 19:32] LABS: Alanine Aminotransferase 44 U/L (10-49); Albumin, Serum 4.1 gm/dL (3.4-4.8); Albumin/Globulin Ratio 1.1 (1.2-2.2); Alkaline Phosphatase 115 U/L (46-116); Anion Gap 11 (7-16); Aspartate Amino Transferase 37 U/L (0-34); BUN/Creatinine Ratio 16 Ratio (12-20); Bilirubin,Total 0.5 mg/dL (0.3-1.2); Blood Urea Nitrogen 16 mg/dL (9-23); Calcium 10.5 mg/dL (8.3-10.6); Calcium (Corrected) 10.5 mg/dL (8.5-10.1); Carbon Dioxide 28.5 mMol/L (20.0-31.0); Chloride 95 mMol/L (98-107); Estimated Creatinine Clearance 35.5 mL/min (>60); Free T4 (Free Thyroxine) 1.46 ng/dL (0.89-1.76); Globulin 3.6 gm/dL (2.3-3.5); Glucose 131 mg/dL (74-106); Magnesium 1.3 mg/dL (1.6-2.6); Osmolality,Calculated 271 (275-295); Potassium 4.1 mMol/L (3.4-5.1); Sodium 134 mMol/L (136-145); Thyroid Stimulating Hormone 64.06 uIU/mL (0.55-4.78); Total Protein 7.7 gm/dL (5.7-8.2); Troponin I < 0.020 ng/mL (0.0-0.045); eGFR 57 See Note
[2025-04-01 19:53] LABS: Collection Type, Urine Catheter
--- NOTE | 2025-04-01 20:17 | XR_ITS ---
Examination: CT brain head without contrast. 2-D sagittal coronal reconstructions Date and time of exam:April 01, 20252027 hours Comparison January 13, 2025 INDICATIONS: Seizures today CTDI: vol (mGy):55 DLP: (mGycm):1076 Technique: Multiple CT axial sections of the brain have been obtained, 5 mm slice thickness. Contrast has not been administered. 2-D sagittal, coronal reconstructions have been obtained Low dose protocols were performed. One or more of the following dose reduction techniques were used; automated exposure control, adjustment of the mA and/or KV according to patient size, use of iterative reconstruction technique. Findings: Patient motion severely degrades image quality Old infarct right middle cerebral artery distribution No gross hemorrhage or mass effect IMPRESSION: Patient motion severely degrades scan image quality Old infarct right middle cerebral artery distribution No gross hemorrhage or mass effect
--- NOTE | 2025-04-01 20:30 | PD.RESHP ---
Documentation for date of: 04/01/25 HPI History of Present Illness History of present illness: The patient is an 80-year-old female, with past medical history of ischemic CVA, history of intracerebral hemorrhage, seizure disorder, hypertension, atrial fibrillation, CKD, s/p PEG tube, who was brought into the ER from [facility] after due to concern for seizure. Spoke to patient's son Hermann, and daughter over the phone and stated that in the visit the patient had some negative and thought that she was more lethargic than her baseline, also had jerking movements of her right extremities, per ER provider patient had 3 minutes of seizure at [facility], and was brought to the emergency room for further evaluation. In the ER patient was also found to have bradycardia, sinus bradycardia heart rate down to 30/min, transiently, before maintaining heart rate 70/min. ER spoke to professional advisor Dr. Adams Lockhart who stated the patient be admitted to hospital for further observation management and sick sinus syndrome. During our evaluation in the ER, found patient to be lethargic, having myoclonic jerking right upper and lower extremity. Per daughter and cardiac DrCristine Lockhart, patient had history of adverse events following administration of benzodiazepine/Ativan, leading to hypotension, bradycardia and encephalopathy. Spoke to neurologist Dr. Rolon, who recommended giving patient loading dose of IV Keppra, okay with giving low-dose Ativan for abortive therapy of seizures. Past medical history: As above Surgical history: None Allergies: Codeine, pravastatin, promethazine, Bactrim Medicines: Amio, Lipitor, Ezetimibe, Keppra, Synthroid, metoprolol tartrate, nifedipine, and number of laxatives including milk of mag, senna, Colace, Dulcolax. Family history: Family history significant for stroke, diabetes, heart disease. Social history: Denied alcohol, never use drugs, no smoking history. Review of Systems Review of Systems ROS Unobtainable: unobtainable due to mental status Past Medical History Past Medical History NEUROLOGIC: Positive Cerebrovascular Accident, Seizures and Epilepsy; Negative Neurological Disorders, Transient Ischemic Attacks (TIA), Dementia, Alzheimer's Disease, Parkinson's Disease, Brain Tumor, Meningitis, Multiple Sclerosis, Cerebral Palsy, Amyotrophic Lateral Sclerosis (ALS/Mia Gehrig's), Guillain-[place] Syndrome, Spina Bifida, Paralysis, Peripheral Neuropathy, Mederos's Palsy, Subdural Hematoma, Migraine, Head Trauma, Spinal Cord Injury or Traumatic Brain Injury CARDIAC: Positive Atrial Fibrillation, Hypercholesterolemia and Hypertension; Negative Cardiac Disorders, Myocardial Infarction, Cardiac Arrhythmia, Angina, Heart Murmur, Coronary Artery Disease, Atherosclerotic Heart Disease, Peripheral Vascular Disease, Aneurysm, Congestive Heart Failure, Congenital Heart Disease, Valvular Heart Disease, Rheumatic Fever, Cardiomyopathy, Edema, Pericarditis, Cellulitis, Deep Vein Thrombosis, Hypotension or Varicose Veins RESPIRATORY: Negative Chronic Obstructive Pulmonary Disease (COPD), Asthma, Bronchitis, Emphysema, Pneumonia, Pulmonary Fibrosis, Tuberculosis, Pulmonary Embolism, Pulmonary Edema or Sleep Apnea GASTROINTESTINAL: Negative Gastrointestinal Disorders, Hepatitis, Cirrhosis, Pancreatitis, Celiac Disease, Gall Bladder Disease, Gastrointestinal Bleed, Esophageal Varices, Buchanan's Esophagus, Colitis, Ulcerative Colitis, Diverticulitis, Diverticulosis, Ulcer, Irritable Bowel, Crohn's Disease, Obstructive Bowel, Hiatal Hernia, Hemorrhoids, Gastroesophageal Reflux Disease or Obesity GENITOURINARY: Negative Genitourinary Disorders, Renal Disease, Kidney Stones, Polycystic Kidney Disease, Neurogenic Bladder, Inguinal Hernia, Dialysis or Benign Prostatic Hyperplasia REPRODUCTIVE: Negative Endometriosis, Genital Herpes, Gonorrhea, Pelvic Inflammatory Disease, Previous Pregnancies, Syphilis or Uterine Prolapse MUSCULOSKELETAL: Negative Musculoskeletal Disorders, Muscular Dystrophy, Myasthenia Gravis, Marfan's Syndrome, Arthritis, Rheumatoid Arthritis, Osteoporosis, Degenerative Disk Disease, Gout, Scoliosis, Fibromyalgia, Fractures, Degenerative Joint Disease, Osteomyelitis or Poliovirus ENT: Positive Deafness; Negative Cataracts, Glaucoma, Blind, Retinal Detachment, Macular Degeneration, Head Trauma or Eye Prosthesis ENDOCRINE: Positive Hypothyroidism; Negative Endocrine Disorders, Diabetes Mellitus Type 1, Diabetes Mellitus Type 2, Hypoglycemia, [place]'s Syndrome, Sumanth's Disease, Hyperthyroidism, Parathyroid Disease, Pituitary Disease, Systemic Lupus Erythematosus, Syndrome of Inappropriate Antidiuretic Hormone (SIADH), Adrenal Disease or Graves' Disease HEMATOLOGIC: Negative Blood Disorders, Anemia, Leukemia, Hemophilia, Thalassemia, Sickle Cell Disease or Clotting Problems PSYCHO/SOCIAL: Negative Psychiatric Problems, Schizophrenia, Recreational Drug Use, Bipolar Disorder, Depression, Anxiety, Behavior Problems, Self-Mutilation, Attention Deficit Disorder, Attention Deficit Hyperactivity Disorder, Depression, Post Traumatic Stress Disorder or Eating Disorder OTHER HISTORY: Negative Hospitalization, Autoimmune Disease, Down Syndrome, Autism, Developmental Delay, Shingles, Falls, Blood Transfusions, Blood Transfusion Reaction, Anesthesia Reactions, Organ Transplant, Chemotherapy, Radiation Therapy, Hyperbaric Therapy, MRSA, VRSA, Vancomycin-Resistant Enterococci, Human Immunodeficiency Virus (HIV), Chicken Pox, Measles, Mumps, Rubella (English Measles), Pertussis, Clostridium Difficile or Cancer Family History FAMILY HISTORY: Positive Family Respiratory Disorders, Family Cardiac Disorders and Family Gastrointestinal Problems Surgical History SURGICAL: Negative Pacemaker, Endocrine Surgery, Thyroidectomy, Ear Surgery, Abdominal Surgery or Organ Transplant Social History SMOKING STATUS: Never smoker Exam Vital Signs Temp Pulse Resp BP Pulse Ox O2 Del Method 98.9 F 82 18 141/105 H 99 Room Air 04/01/25 18:18 04/01/25 20:00 04/01/25 20:00 04/01/25 20:00 04/01/25 20:00 04/01/25 18:18 Narrative Exam General: AOx1, lethargic, twitching rt arm and leg Skin: Intact, no cyanosis or edema noted. HEENT: Atraumatic/normocephalic, JUNIE, neck supple Heart: RRR, S1 and S2 without clicks or murmurs Lungs: Clear on auscultation bilaterally, no difficulty breathing Abdomen: Soft, nontender. Bowel sounds present . PEG tube, in place. Vascular: Peripheral pulses palpable Neuro: left sided hempiplegia. Results: Labs 04/01/25 17:21 04/01/25 19:02 Labs: Short CBC 04/01/25 Range/Units 17:21 WBC 10.1 (3.6-11.0) Thou/mm3 Hgb 12.5 (12.0-16.0) g/dL Hct 36.7 (36.0-46.0) % Plt Count 338 D (140-440) Thou/mm3 BMP 04/01/25 04/01/25 17:21 19:02 Sodium Cancelled 134 L Potassium Cancelled 4.1 Chloride Cancelled 95 L Carbon Dioxide Cancelled 28.5 BUN Cancelled 16 Creatinine Cancelled 1.0 Glucose Cancelled 131 H Calcium Cancelled 10.5 Cardiac Enzymes 04/01/25 Range/Units 19:02 Troponin I < 0.020 (0.0-0.045) ng/mL Liver Function 04/01/25 04/01/25 Range/Units 17:21 19:02 Total Bilirubin Cancelled 0.5 AST Cancelled 37 H ALT Cancelled 44 Alkaline Phosphatase Cancelled 115 Albumin Cancelled 4.1 Quality Measures Quality Measures VTE prophylaxis Advance care planning discussed with:: child Medications Home Medications and Allergies Home Medications ?Medication ?Instructions ?Recorded ?Confirmed ?Type acetaminophen 325 mg tablet 650 mg feeding tube Q4H PRN pain 12/14/24 01/13/25 History (Tylenol) docusate sodium 100 mg capsule 100 mg PO Q12HR PRN constipation 12/14/24 01/13/25 History (Colace) ezetimibe 10 mg tablet 10 mg PO .qday high cholesterol 12/14/24 01/13/25 History lidocaine 5 % topical patch 1 patch topical Q24H 12/14/24 01/13/25 History menthol 0.44 %-zinc oxide 20.6 % 1 applic topical Q6HR PRN pain 12/14/24 01/13/25 History topical cream packet (CalaSoothe) metoprolol tartrate 50 mg tablet 50 mg PO BID 12/14/24 01/13/25 History (Lopressor) sennosides 8.6 mg tablet (senna) 8.6 mg PO Q12H PRN constipation 12/14/24 01/13/25 History atorvastatin 20 mg tablet 20 mg PO HS 01/13/25 01/13/25 History nifedipine 30 mg tablet,extended 30 mg PO QDAY 01/13/25 01/13/25 History release 24 hr Allergies Allergy/AdvReac Type Severity Reaction Status Date / Time codeine Allergy Verified 12/13/24 19:10 pravastatin Allergy Verified 12/13/24 19:10 promethazine (From Phenergan) Allergy Verified 12/13/24 19:10 sulfamethoxazole (From Allergy Verified 12/13/24 19:10 Bactrim) trimethoprim (From Bactrim) Allergy Verified 12/13/24 19:10 Visit Medications Discontinued Medications Levetiracetam (Levetiracetam Inj 100 Mg/Ml Vial 5ml) 1,000 mg IVP X1 ONE Stop: 04/01/25 18:18 Last Admin: 04/01/25 18:24 Dose: 1,000 mg Lorazepam (Lorazepam 2 Mg/Ml Vial) 2 mg IVP X1 ONE Stop: 04/01/25 18:17 Last Admin: 04/01/25 18:25 Dose: Not Given Lorazepam (Lorazepam 2 Mg/Ml Vial) 1 mg IVP X1 ONE Stop: 04/01/25 18:18 Last Admin: 04/01/25 18:25 Dose: Not Given Lorazepam (Lorazepam 2 Mg/Ml Vial) 0.5 mg IVP X1 ONE Stop: 04/01/25 18:39 Last Admin: 04/01/25 18:49 Dose: Not Given Lorazepam (Lorazepam 2 Mg/Ml Vial) 0.25 mg IVP X1 ONE Stop: 04/01/25 18:40 Last Admin: 04/01/25 18:49 Dose: Not Given Ondansetron HCl (Ondansetron Inj 2 Mg/Ml Inj 2 Ml) 4 mg IVP X1 ONE; Protocol Stop: 04/01/25 16:59 Last Admin: 04/01/25 17:21 Dose: 4 mg Assessment & Plan Plan The patient is an 80-year-old female, with past medical history of ischemic CVA, history of intracerebral hemorrhage, seizure disorder, hypertension, atrial fibrillation, CKD, s/p PEG tube, who was brought into the ER from [facility] after due to concern for seizure. Spoke to patient's son Hermann, and daughter over the phone and stated that in the visit the patient had some negative and thought that she was more lethargic than her baseline, also had jerking movements of her right extremities, per ER provider patient had 3 minutes of seizure at [facility], and was brought to the emergency room for further evaluation. In the ER patient was also found to have bradycardia, sinus bradycardia heart rate down to 30/min, transiently, before maintaining heart rate 70/min. ER spoke to professional advisor Dr. Adams Lockhart who stated the patient be admitted to hospital for further observation management and sick sinus syndrome. During our evaluation in the ER, found patient to be lethargic, having myoclonic jerking right upper and lower extremity. Per daughter and cardiac Dr. Adams Lockhart, patient had history of adverse events following administration of benzodiazepine/Ativan, leading to hypotension, bradycardia and encephalopathy. Spoke to neurologist Dr. Rolon, who recommended giving patient loading dose of IV Keppra, okay with giving low-dose Ativan for abortive therapy of seizures. The patient has been admitted to medical floor for further observation and management. #Partial complex seizure #Acute encephalopathy Patient history of ischemic CVA, left-sided hemiplegia, also had seizure, prior workup including EEGs positive for seizure, now noted to have partial seizures involving right side of her body, associated lethargy acute encephalopathy, per daughter family was very apprehensive about getting Ativan for abortive treatment, reported adverse event, obtunded status after receiving Ativan lasting more than 24 hours. Spoke to patient's professional advisor Dr. Adams Lockhart and neurologist Dr. Rolon. Per neurology, decided against Vimpat due to concurrent bradycardia, apparently patient had poor response to Depakote during prior admission, recommended giving loading dose of Keppra IV, ? IV Keppra 1000 mg twice daily ? IV Ativan 0.25 mg as needed for seizures ? Neurology consult ? Seizure precautions #Sick sinus syndrome #Sinus bradycardia ER spoke to professional advisor Dr. Adams Lockhart, who recommended admitting the patient, ? IV atropine 1 mg every 5 minute as needed if symptomatic bradycardia ? Pacer pads in place ? Telemetry admit ? Holding home medication metoprolol #UTI Urinalysis shows 4 + bacteria, wbc 16 - iv ceftriaxone 1g qday #history of hypothyroidism - start home dose levothyroxine, elevated TSH but normal free t4, likley erronous reading during acute illness, does not meet criteria for Myxedema coma, no hypotension or hypothermia, consider IV levothyroxine if no improvement in bradycardia, AMS and lethargy likely secondary to post ictal state. #history of ischemic CVA, #history of intracerebral hemorrhage, #hypertension - holding home metoprolol, no anticoagulation due to hx of ICH #atrial fibrillation, #CKD Disposition: Tele DVT prophylaxis: SCD GI prophylaxis: none Diet: Dietary referral, use PEG tube for meds Lines: PIV CODE STATUS: Full Plan of care discusssed with Attending Dr Misty Arellano pgy 2 Attending Provider Attestation/Addendum I have examined the patient, reviewed labs and imaging findings, discussed the case with the resident(s), and reviewed entered orders. I agree with the plan of care as outlined in this note, with these additional summaries/recommendations: After examination of the patient and review of the clinical data, I feel that this patient needs admission to the hospital for further treatment and evaluation. Patient is a 79-year-old female with a medical history of CVA, brain bleed October 2024, primary hypertension, paroxysmal atrial fibrillation, seizure disorder, hypothyroidism, and dyslipidemia who presents to [facility] emergency department on 04/01/2025 with chief complaint of seizures. [facility] had [facility] at [facility] and was brought to the hospital via ambulance. Patient and patient's children seen at bedside. Discussed that patient will be admitted to the hospital for seizures. While at bedside patient appears to be in a postictal state although does answer some questions and is very lethargic. During my evaluation patient appeared to have a partial complex seizure with left upper extremity shaking and some foaming at the mouth. Low-dose Ativan 0.25 mg ordered and patient given another dose of Keppra 500 mg IV x 1. Monitor closely for any further seizure activity. Patient's family is very concerned about Ativan because previous hospitalization she was fairly obtunded for almost 3 days after receiving Ativan. I discussed the risks and benefits of giving this medicine with family and they show understanding that if patient is having seizures she will require Ativan for abortive therapy. We will attempt low doses but also discussed with family we may have to increase the dose and they showed understanding. Head CT on admission showed old infract right middle cerebral artery but no gross hemorrhage or mass effect. Neurology consulted, recommendations appreciated. As needed low-dose Ativan for seizure-like activity. Continue Keppra 1000 mg IV twice daily and seizure precautions. Order lactic acid and procalcitonin. Order EEG. Unknown trigger for seizures as patient appears compliant with medicines and no evidence of infection at this time. Mild leukocytosis present and most likely reactive. Will continue to monitor patient closely. Patient also developed sinus bradycardia in the ED with heart rate down into the 30s. Cardiology was consulted and recommended admission for close monitoring. While at bedside sinus bradycardia resolved. Patient was noted to be in sinus rhythm with heart rate in the 60s and 70s. Less likely patient has sick sinus syndrome and may have just been transient secondary to seizures. PRN Atropine if patient develops symptomatic bradycardia. Patient does have underlying history of paroxysmal atrial fibrillation and previously on anticoagulation which was discontinued after patient had brain bleed in October 2024. We will hold home metoprolol for now given patient's episode of bradycardia. Will resume home nifedipine for hypertension as needed. Continue home statin. Mild hypomagnesia present and replacement given. Repeat level in AM. Patient has history of hypothyroidism and on admission TSH 64.06 and free T41.46. TSH may be falsely elevated secondary to seizure-like activity. We will continue home levothyroxine and recommend repeating thyroid studies in 4 to 6 weeks. Patient and patient's children were updated on the plan and in agreement. All questions answered to satisfaction. Please see residents note for additional details and management. Dr. Misty MD
[2025-04-01 20:32] LABS: Bacteria,Urine 4+; Bilirubin,Urine Negative (Negative); Blood,Urine Negative (Negative); Clarity,Urine Clear (Clear/Hazy); Color,Urine Lt-Yellow (Lt Yel-Yel); Glucose, Urine Negative (Negative); Hyaline Casts,Urine < 1 /hpf (0-1); Ketones,Urine Negative (Negative); Leukocyte Esterase,Urine Positive (Negative); Nitrite,Urine Positive (Negative); PH,Urine 6.5 (5.0-7.0); Protein,Urine Negative (Neg - Trace); RBC,Urine 13 /hpf (0-3); Specific Gravity,Urine 1.017 (1.001-1.035); Squamous Epithelial Cell,Urine < 1 /hpf (0-5); Urobilinogen,Urine Negative mg/dL (0.0-1.0); WBC,Urine 16 /hpf (0-5)
[2025-04-01 20:33] LABS: Culture Indicated,Urine Yes
[2025-04-01] MEDS: levETIRAcetam INJ 100 MG/ML VIAL 5ML 500 MG IVP (20:41)
[2025-04-01] MEDS: LORazepam 2 MG/ML VIAL 0.25 MG IVP (20:55)
[2025-04-01] MEDS: cefTRIAXone/D5w 1gm IV premix 1 GM/50 ML BAG IV (20:55)
[2025-04-01] MEDS: Magnesium Sulfate 2 GM Ivpb 2 GM/50 ML BAG IV (21:13)
[2025-04-02] VITALS (10 sets, daily range): BP systolic 126–147; BP diastolic 60–79; PULSE 53–81; RESP 13–18; TEMP 36.2–36.8; O2SAT 98–100; BMI 23.3; BMI 23.5
--- NOTE | 2025-04-02 05:01 | PC.NURSE ---
0400 pt's daughter at bedside and stated pt started to have involuntary head movement and pt is not arousable. RN and RT Layla at bedside, called pt's name and tactile stimuli, pt winces and squeezes RN hand when commanded,and eventually open eyes and verbally responsive.. pt skin warm,dry. pt alert to self, and place. BP 133/60, hr 60 SR, SPO2 97% 2l n/c. Dr. Arellano notified of pt condition, no new order.
[2025-04-02] MEDS: LEVOTHYROXINE SODIUM 112 MCG TABLET GT (05:28)
[2025-04-02 06:22] LABS: Basophils # (Auto) 0.1 Thou/mm3 (0.0-0.2); Basophils % (Auto) 1 % (0-2.5); Eosinophils % (Auto) 0 % (0-10); Hematocrit 36.1 % (36.0-46.0); Hemoglobin 12.4 g/dL (12.0-16.0); Immature Granulocytes % (Auto) 0 % (0-0); Immature Granulocytes Auto 0.04 Thou/mm3 (0.00-0.00); Lymphocytes # (Auto) 1.5 Thou/mm3 (1.0-4.8); Lymphocytes % (Auto) 15 % (10-50); Mean Corpuscular HGB Conc 34.3 g/dl (31.0-37.0); Mean Corpuscular Hemoglobin 30.9 pg (25.0-35.0); Mean Corpuscular Volume 90 fL (80-100); Monocytes % (Auto) 9 % (0-12); Neutrophils # (Auto) 7.6 Thou/mm3 (1.8-7.7); Neutrophils % (Auto) 74 % (37-80); Nucleated Red Blood Cell % 0 /100 WBC (0); Platelet Count 360 Thou/mm3 (140-440); RDW Standard Deviation 43.2 fL (36.4-46.3); Red Blood Count 4.01 Miln/mm3 (4.00-5.20); White Blood Count 10.2 Thou/mm3 (3.6-11.0)
[2025-04-02 06:28] LABS: INR 1.1 (0.9-1.3); Prothrombin Time 11.6 Seconds (9.0-12.2)
[2025-04-02 06:34] LABS: Alanine Aminotransferase 47 U/L (10-49); Albumin, Serum 3.6 gm/dL (3.4-4.8); Alkaline Phosphatase 95 U/L (46-116); Anion Gap 11 (7-16); Aspartate Amino Transferase 43 U/L (0-34); BUN/Creatinine Ratio 20 Ratio (12-20); Bilirubin,Direct 0.1 mg/dL (0.0-0.3); Bilirubin,Total 0.4 mg/dL (0.3-1.2); Blood Urea Nitrogen 20 mg/dL (9-23); Calcium 9.6 mg/dL (8.3-10.6); Carbon Dioxide 30.3 mMol/L (20.0-31.0); Cardiac Risk Estimate 2.9 RATIO (3.7-5.6); Chloride 97 mMol/L (98-107); Cholesterol 136 mg/dL (132-200); Estimated Creatinine Clearance 35.5 mL/min (>60); Glucose 100 mg/dL (74-106); HDL Cholesterol 47 mg/dL (40-60); LDL Cholesterol,Calculated 66 mg/dL (0-130); Magnesium 1.7 mg/dL (1.6-2.6); Osmolality,Calculated 278 (275-295); Sodium 138 mMol/L (136-145); Total Protein 6.6 gm/dL (5.7-8.2); Triglycerides 117 mg/dL (30-150); eGFR 57 See Note
--- NOTE | 2025-04-02 09:15 | PC.SS ---
Initial assessment: patient is an 80-year old female admitted for seizures. Patient comes from [facility]. Patient is a bed hold at the facility. Patient's emergency contact is her daughter, Cat Castillo. Patient requires some assistance with ADL's. Patient is wheelchair bound. facility PCP is Dr. Duron. Discharge plan is to return to [facility]. No needs identified at this time. D/c plan: [facility] Next of kin: daughterKaila [phone]
[2025-04-02] MEDS: Magnesium Sulfate 2 GM Ivpb 2 GM/50 ML BAG IV (09:24)
[2025-04-02] MEDS: PIPER/TAZO 2.25 GM 2.25 GM/50 ML BAG IV ×2 (09:24→13:21)
[2025-04-02] MEDS: levETIRAcetam INJ 100 MG/ML VIAL 5ML 1000 MG IVP ×2 (09:25→20:30)
--- NOTE | 2025-04-02 09:44 | ESPR_ITS ---
<Statement entered by Destinee Patel MD - 04/07/25 15:44> I reviewed above note and agree with findings and plans. I have also personally examined the patient with medicine team and went over assessment and plan with medical team including internist medical doctor md and resident physician. Documentation for date of: 04/02/25 Subjective Subjective Interval history: Patient was seen and examined at bedside this morning. No acute overnight events. Patient this morning was AO x 3 and she did not have any further seizures throughout the night. Patient's daughter was at bedside and stated that she looked a lot better today. Labs look fairly unremarkable this morning. Heart rate has been in the 60s. Patient's urine cultures are pending. CXR done today was unremarkable. No other complaints at this time. Exam Vital Signs Temp Pulse Resp BP Pulse Ox O2 Del Method O2 Flow Rate 98.1 F 56 L 13 140/74 H 100 Nasal Cannula 1 04/02/25 08:00 04/02/25 08:00 04/02/25 08:00 04/02/25 08:00 04/02/25 08:00 04/02/25 08:00 04/02/25 08:00 Narrative Exam General: A/O x3, no acute distress, elderly, frail female Eyes: PERRL, EOMI. Anicteric, vision grossly intact. Ears: No ear pain, no ear discharge, Hearing grossly intact. Nose: No nasal discharge. Mouth/Throat: Moist mucous membranes, no redness, no lesions. Neck: Neck supple, non-tender, no cervical lymphadenopathy. Lungs: Clear MARC to auscultation and percussion, No accessory muscle use. Cardio: Normal S1/S2, regular rhythm, systolic murmur appreciated, no JVD Abdomen: Soft, non-tender, no palpable masses, peristalsis present, no guarding or rebound. Extremities: Symmetrical, no significant deformities, no peripheral edema , non-tender, peripheral pulses presents left side hemiparesis. Skin: No rashes, no lesions, warm to touch. Neuro: Left-sided hemiparesis from previous stroke, right side strength by movement intact. AAO x 3. Able to follow commands. Psych: Cooperative,slow speech Objective Labs 04/02/25 05:24 04/02/25 05:24 Labs: Laboratory Results - last 24 hr 04/01/25 04/01/25 04/01/25 17:21 19:02 19:44 WBC 10.1 RBC 4.07 Hgb 12.5 Hct 36.7 MCV 90 MCH 30.7 MCHC 34.1 RDW Std Deviation 43.4 Plt Count 338 D Neut % (Auto) 59 Lymph % (Auto) 21 [place] % (Auto) 11 Eos % (Auto) 7 Baso % (Auto) 2 Neut # (Auto) 6.0 Lymph # (Auto) 2.1 [place] # (Auto) 1.1 H Eos # (Auto) 0.7 H Baso # (Auto) 0.2 Immature Gran # (Auto) 0.03 H Absolute Nucleated RBC 0.00 Immature Gran % 0 Nucleated RBC % 0 PT 11.7 INR 1.1 APTT 22.1 Sodium Cancelled 134 L Potassium Cancelled 4.1 Chloride Cancelled 95 L Carbon Dioxide Cancelled 28.5 Anion Gap Cancelled 11 BUN Cancelled 16 Creatinine Cancelled 1.0 Estim Creat Clear Calc Cancelled 35.5 L eGFR Cancelled 57 L BUN/Creatinine Ratio Cancelled 16 Glucose Cancelled 131 H Calculated Osmolality Cancelled 271 L Lactic Acid Calcium Cancelled 10.5 Corrected Calcium Cancelled 10.5 H Phosphorus Magnesium 1.3 L Total Bilirubin Cancelled 0.5 Direct Bilirubin AST Cancelled 37 H ALT Cancelled 44 Alkaline Phosphatase Cancelled 115 Troponin I < 0.020 B-Natriuretic Peptide 182 H Total Protein Cancelled 7.7 Albumin Cancelled 4.1 Globulin Cancelled 3.6 H Albumin/Globulin Ratio Cancelled 1.1 L Triglycerides Cholesterol LDL Cholesterol, Calc HDL Cholesterol Cholesterol/HDL Ratio TSH 64.06 H* Free T4 1.46 Ur Collection Type Catheter Urine Color Lt-Yellow Urine Clarity Clear Urine pH 6.5 Ur Specific [place] 1.017 Urine Protein Negative Urine Glucose (UA) Negative Urine Ketones Negative Urine Blood Negative Urine Nitrite Positive Urine Bilirubin Negative Urine Urobilinogen (Auto) Negative Ur Leukocyte Esterase Positive Urine RBC 13 H Urine WBC 16 H Ur Squamous Epith Cells < 1 Urine Bacteria 4+ A Hyaline Casts < 1 Ur Culture Indicated? Yes 04/01/25 04/02/25 22:24 05:24 WBC 10.2 RBC 4.01 Hgb 12.4 Hct 36.1 MCV 90 MCH 30.9 MCHC 34.3 RDW Std Deviation 43.2 Plt Count 360 Neut % (Auto) 74 Lymph % (Auto) 15 [place] % (Auto) 9 Eos % (Auto) 0 Baso % (Auto) 1 Neut # (Auto) 7.6 Lymph # (Auto) 1.5 [place] # (Auto) 1.0 H Eos # (Auto) 0.0 Baso # (Auto) 0.1 Immature Gran # (Auto) 0.04 H Absolute Nucleated RBC 0.00 Immature Gran % 0 Nucleated RBC % 0 PT 11.6 INR 1.1 APTT Sodium 138 Potassium 4.0 Chloride 97 L Carbon Dioxide 30.3 Anion Gap 11 BUN 20 Creatinine 1.0 Estim Creat Clear Calc 35.5 L eGFR 57 L BUN/Creatinine Ratio 20 Glucose 100 Calculated Osmolality 278 Lactic Acid 2.0 Calcium 9.6 Corrected Calcium Phosphorus 4.0 Magnesium 1.7 Total Bilirubin 0.4 Direct Bilirubin 0.1 AST 43 H ALT 47 Alkaline Phosphatase 95 D Troponin I B-Natriuretic Peptide Total Protein 6.6 Albumin 3.6 D Globulin Albumin/Globulin Ratio Triglycerides 117 Cholesterol 136 LDL Cholesterol, Calc 66 HDL Cholesterol 47 Cholesterol/HDL Ratio 2.9 L TSH Free T4 Ur Collection Type Urine Color Urine Clarity Urine pH Ur Specific [place] Urine Protein Urine Glucose (UA) Urine Ketones Urine Blood Urine Nitrite Urine Bilirubin Urine Urobilinogen (Auto) Ur Leukocyte Esterase Urine RBC Urine WBC Ur Squamous Epith Cells Urine Bacteria Hyaline Casts Ur Culture Indicated? Quality Measures Quality Measures VTE prophylaxis Advance care planning discussed with:: patient and child Assessment & Plan Assessment Current Active Medications: Generic Name Dose Route Start Last Admin Trade Name Freq PRN Reason Stop Dose Admin Acetaminophen 650 mg 04/01/25 21:36 Acetaminophen 325 Mg Tablet PO 05/01/25 21:35 Q6H PRN PAIN OR FEVER > 101 Atropine Sulfate 1 mg 04/01/25 21:39 Atropine Sulf Inj 1 Mg/Ml Vial IV 05/01/25 21:38 Q5MIN PRN symptomatic bradycardia Piperacillin/Tazobactam/Dextrose 2.25 gm in 50 mls @ 100 mls/hr 04/02/25 07:45 04/02/25 09:24 Zosyn IV 04/09/25 07:44 100 mls/hr Q6H JOHNY Administration Levetiracetam 1,000 mg 04/02/25 09:00 04/02/25 09:25 Levetiracetam Inj 100 Mg/Ml Vial 5ml IVP 05/02/25 08:59 1,000 mg Q12HR JOHNY Administration Levothyroxine Sodium 112 mcg 04/02/25 06:00 04/02/25 05:28 Levothyroxine Sodium 112 Mcg Tablet GT 05/02/25 05:59 112 mcg ACBR JOHNY Administration Ondansetron HCl 4 mg 04/01/25 21:36 Ondansetron Inj 2 Mg/Ml Inj 2 Ml IV 05/01/25 21:35 Q6H PRN NAUSEA OR VOMITING Protocol Pharmacy Consult 1 each 04/02/25 07:40 Pharmacy Renal Dose Adjustment 1 Ea XX 05/02/25 07:39 PRN PRN CONSULT Sennosides 2 tab 04/01/25 21:36 Senna Tablet PO 05/01/25 21:35 BID PRN CONSTIPATION Protocol Plan 80-year-old female with past medical history of ischemic stroke with hemorrhagic conversion, seizure, hypertension, A-fib, CKD, and PEG tube secondary to stroke was admitted to the hospital on 04/01/2025 due to acute encephalopathy likely in the setting of seizure and sinus bradycardia. #Breakthrough seizures #Encephalopathy, resolved #UTI Patient does have a history of seizures and yesterday she started having right- sided twitching and blank stare. Given bradycardia neurology stated to start Keppra. Patient could have had breakthrough seizures likely secondary to UTI as she has previously been also been admitted for similar symptoms. Patient's last urine cultures showed ESBL E. coli therefore we will base our antibiotic regimen off those cultures given history of multidrug-resistant bacteria. Patient does have some type of reaction to Ativan therefore if Ativan is required we will do 0.25 mg Plan: IV Keppra 1000 twice daily Start Zosyn (04/02/2025?) Urine cultures pending Neurology consulted, appreciate recommendations Seizure precautions Referral to speech eval #Sinus bradycardia #Possible sick sinus syndrome Patient came in with heart rate in the 30s per chart review in the ER. Cardiology was consulted and decided to admit the patient for further workup Plan: Atropine 1 mg every 5 minutes as needed for symptomatic bradycardia Patient has pacer pads Cardiology consulted, appreciate recommendations #Hx of hypothyroidism #Hx of hypertension Will continue with home levothyroxine Blood pressure has been under control therefore we will hold off from antihypertensive medications in the setting of bradycardia #Hx of A-fib #Hx of ischemic CVA with hemorrhagic conversion s/p PEG tube Holding metoprolol and anticoagulation for now as per cardiology Patient has an allergy to pravastatin therefore will restart ezetimibe 10mg Patient's daughter patient has been eating normally in the fall using the PEG tube Will get speech evaluation. Disposition: Pending neuro and cardio recs. Diet: Dysphagia 3 cardiac GI prophylaxis: not indicated DVT prophylaxis: SCDs Code: Full Case disclosed with Attending Dr. Jorge Hernandez PGY1 Disclaimer: Even though this this note was dictated by speech recognition and even though it was carefully revised there may still be minor errors in wire coater due to voice recognition software.
--- NOTE | 2025-04-02 10:00 | PC.DIETICIAN ---
Nutrition prescription If oral intake is feasible: Cardiac (adjust food/liquids consistency as needed after [employer] eval). If EN is indicated, consider: Jevity 1.2 at 20 ml/hr via PEG tube by pump. Advance 10 ml every 8 hrs to goal rate of 55 ml/hr x 22 hrs. If no IV fluids, water flushes of 25 ml/hr x 22 hrs (or per MD). -Hold TF for one hour before and after levothyroxine administration-
--- NOTE | 2025-04-02 10:18 | XR_ITS ---
Examination: AP chest single view Technique one AP portable upright chest single view Date and time: April 02, 2025 10:37 AM INDICATIONS: Coughing beginning 2 days ago. FINDINGS: Normal heart size. Lungs are clear. The osseous structures are intact IMPRESSION: No active disease
--- NOTE | 2025-04-02 10:50 | ESPR_ITS ---
<Statement entered by Junior Lockhart MD - 04/02/25 17:36> I personally examined evaluate the patient in telemetry floor patient is a lot better now still somewhat sleepy no further episodes of seizures no A-fib episodes bradycardia is not significant lowest heart rate in the 50s no pauses are detected will continue to monitor the patient cardiac status specially considering history of A-fib agree with the treatment plan recommendation as documented by PGY 2 Dr. Proctor Documentation for date of: 04/02/25 Subjective Subjective Interval history: Patient is a 79-year-old female with past medical history of CVA [10/27 with hemorrhagic conversion and residual left-sided deficit, 12/29], seizures [admitted on 12/14 for status epilepticus requiring intubation], A-fib not on anticoagulation secondary to hemorrhagic conversion, hypertension, hyperlipidemia, hypothyroidism presented to the ED due to episode of seizures. She is on Keppra 1g BID for seizures. Per daughter at the bedside she was visiting patient [facility] the [facility] when she suddenly developed seizure episode and ambulance was called. She was seen in cardiology office yesterday and was doing totally fine. In the ED her BP 169/62, HR 66, RR 18, temp 99F, saturation 99% on RA. CBC was unremarkable. Other labs pending. EKG showed sinus rhythm with HR 64. During evaluation ED stuff noticed HR of 38 and patient at that time reported feeling dizzy therefore cardiology was consulted. Her HR went up spontaneously to 60s. 04/01/2025: Patient was seen and examined at the bedside. She appears weak and is not maintaining eye contact, able to follow commands. She reports feeling not normal but can't specify what's the problem. During evaluation by cardiology team patient developed another episode of seizures. 04/02/2025: Patient was seen and examined at the bedside. No acute overnight events. Patient did not have any more seizures. Her heart rate was mostly in high 50s?60s and was asymptomatic. Patient is unlikely has sick sinus syndrome, her bradycardia and dizziness are likely related to episode of vomiting immediately prior to the event. Continue monitoring patient. Continue working with neurology due to recurrent seizures. Exam Vital Signs Temp Pulse Resp BP Pulse Ox O2 Del Method O2 Flow Rate 98.1 F 56 L 13 140/74 H 100 Nasal Cannula 1 04/02/25 08:00 04/02/25 08:00 04/02/25 08:00 04/02/25 08:00 04/02/25 08:00 04/02/25 08:00 04/02/25 08:00 Narrative Exam Gen: Well-developed and well-nourished elderly female. HEENT: NCAT, PERRLA, EOMI, MMM, anicteric conjunctivae. CVS: normal S1 and S2. RRR. Systolic murmur over aortic area. Resp: CTA B/L. No rhonchi, rales, crackles or wheezing. Abd: soft, non-tender, non-distended. BS+ in all 4 quadrants. PEG tube in place. MSK: Good ROM in BUE & BLE. No edema or rash. Neuro: Left-sided hemiparesis from previous stroke, right side strength by movement intact. AAO x 3. Able to follow commands. Objective Labs 04/02/25 05:24 04/02/25 05:24 Labs: Laboratory Results - last 24 hr 04/01/25 04/01/25 04/01/25 17:21 19:02 19:44 WBC 10.1 RBC 4.07 Hgb 12.5 Hct 36.7 MCV 90 MCH 30.7 MCHC 34.1 RDW Std Deviation 43.4 Plt Count 338 D Neut % (Auto) 59 Lymph % (Auto) 21 [place] % (Auto) 11 Eos % (Auto) 7 Baso % (Auto) 2 Neut # (Auto) 6.0 Lymph # (Auto) 2.1 [place] # (Auto) 1.1 H Eos # (Auto) 0.7 H Baso # (Auto) 0.2 Immature Gran # (Auto) 0.03 H Absolute Nucleated RBC 0.00 Immature Gran % 0 Nucleated RBC % 0 PT 11.7 INR 1.1 APTT 22.1 Sodium Cancelled 134 L Potassium Cancelled 4.1 Chloride Cancelled 95 L Carbon Dioxide Cancelled 28.5 Anion Gap Cancelled 11 BUN Cancelled 16 Creatinine Cancelled 1.0 Estim Creat Clear Calc Cancelled 35.5 L eGFR Cancelled 57 L BUN/Creatinine Ratio Cancelled 16 Glucose Cancelled 131 H Calculated Osmolality Cancelled 271 L Lactic Acid Calcium Cancelled 10.5 Corrected Calcium Cancelled 10.5 H Phosphorus Magnesium 1.3 L Total Bilirubin Cancelled 0.5 Direct Bilirubin AST Cancelled 37 H ALT Cancelled 44 Alkaline Phosphatase Cancelled 115 Troponin I < 0.020 B-Natriuretic Peptide 182 H Total Protein Cancelled 7.7 Albumin Cancelled 4.1 Globulin Cancelled 3.6 H Albumin/Globulin Ratio Cancelled 1.1 L Triglycerides Cholesterol LDL Cholesterol, Calc HDL Cholesterol Cholesterol/HDL Ratio TSH 64.06 H* Free T4 1.46 Ur Collection Type Catheter Urine Color Lt-Yellow Urine Clarity Clear Urine pH 6.5 Ur Specific [place] 1.017 Urine Protein Negative Urine Glucose (UA) Negative Urine Ketones Negative Urine Blood Negative Urine Nitrite Positive Urine Bilirubin Negative Urine Urobilinogen (Auto) Negative Ur Leukocyte Esterase Positive Urine RBC 13 H Urine WBC 16 H Ur Squamous Epith Cells < 1 Urine Bacteria 4+ A Hyaline Casts < 1 Ur Culture Indicated? Yes 04/01/25 04/02/25 22:24 05:24 WBC 10.2 RBC 4.01 Hgb 12.4 Hct 36.1 MCV 90 MCH 30.9 MCHC 34.3 RDW Std Deviation 43.2 Plt Count 360 Neut % (Auto) 74 Lymph % (Auto) 15 [place] % (Auto) 9 Eos % (Auto) 0 Baso % (Auto) 1 Neut # (Auto) 7.6 Lymph # (Auto) 1.5 [place] # (Auto) 1.0 H Eos # (Auto) 0.0 Baso # (Auto) 0.1 Immature Gran # (Auto) 0.04 H Absolute Nucleated RBC 0.00 Immature Gran % 0 Nucleated RBC % 0 PT 11.6 INR 1.1 APTT Sodium 138 Potassium 4.0 Chloride 97 L Carbon Dioxide 30.3 Anion Gap 11 BUN 20 Creatinine 1.0 Estim Creat Clear Calc 35.5 L eGFR 57 L BUN/Creatinine Ratio 20 Glucose 100 Calculated Osmolality 278 Lactic Acid 2.0 Calcium 9.6 Corrected Calcium Phosphorus 4.0 Magnesium 1.7 Total Bilirubin 0.4 Direct Bilirubin 0.1 AST 43 H ALT 47 Alkaline Phosphatase 95 D Troponin I B-Natriuretic Peptide Total Protein 6.6 Albumin 3.6 D Globulin Albumin/Globulin Ratio Triglycerides 117 Cholesterol 136 LDL Cholesterol, Calc 66 HDL Cholesterol 47 Cholesterol/HDL Ratio 2.9 L TSH Free T4 Ur Collection Type Urine Color Urine Clarity Urine pH Ur Specific [place] Urine Protein Urine Glucose (UA) Urine Ketones Urine Blood Urine Nitrite Urine Bilirubin Urine Urobilinogen (Auto) Ur Leukocyte Esterase Urine RBC Urine WBC Ur Squamous Epith Cells Urine Bacteria Hyaline Casts Ur Culture Indicated? Quality Measures Quality Measures VTE prophylaxis Advance care planning discussed with:: patient and child Assessment & Plan Assessment Current Active Medications: Generic Name Dose Route Start Last Admin Trade Name Freq PRN Reason Stop Dose Admin Acetaminophen 650 mg 04/01/25 21:36 Acetaminophen 325 Mg Tablet PO 05/01/25 21:35 Q6H PRN PAIN OR FEVER > 101 Atropine Sulfate 1 mg 04/01/25 21:39 Atropine Sulf Inj 1 Mg/Ml Vial IV 05/01/25 21:38 Q5MIN PRN symptomatic bradycardia Ezetimibe 10 mg 04/03/25 09:00 Ezetimibe 10 Mg Tablet GT 05/03/25 08:59 QDAY JOHNY Piperacillin/Tazobactam/Dextrose 2.25 gm in 50 mls @ 100 mls/hr 04/02/25 07:45 04/02/25 09:24 Zosyn IV 04/09/25 07:44 100 mls/hr Q6H JOHNY Administration Levetiracetam 1,000 mg 04/02/25 09:00 04/02/25 09:25 Levetiracetam Inj 100 Mg/Ml Vial 5ml IVP 05/02/25 08:59 1,000 mg Q12HR JOHNY Administration Levothyroxine Sodium 112 mcg 04/02/25 06:00 04/02/25 05:28 Levothyroxine Sodium 112 Mcg Tablet GT 05/02/25 05:59 112 mcg ACBR JOHNY Administration Ondansetron HCl 4 mg 04/01/25 21:36 Ondansetron Inj 2 Mg/Ml Inj 2 Ml IV 05/01/25 21:35 Q6H PRN NAUSEA OR VOMITING Protocol Pharmacy Consult 1 each 04/02/25 07:40 Pharmacy Renal Dose Adjustment 1 Ea XX 05/02/25 07:39 PRN PRN CONSULT Sennosides 2 tab 04/01/25 21:36 Senna Tablet PO 05/01/25 21:35 BID PRN CONSTIPATION Protocol Plan Patient is a 79-year-old female with 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 During evaluation ED stuff noticed HR of 38 and patient at that time reported feeling dizzy therefore cardiology was consulted. Her HR went up spontaneously to 60s. #Bradycardia. - Patient had HR of 38 and at that time reported feeling dizzy. Previously diagnosed with Afib on metoprolol and amiodarone. No significant bradycardia overnight after admission. - Patient developed bradycardia after vomiting, likely related to it. Plan: - telemetry monitoring. #Hx of Afib. - in sinus rhythm, bradycardic. Plan: - hold home metoprolol. - do not start anticoagulation due to recent ICH. #Hx of hypertension. - on admission BP in 160s. On amlodipine 5 mg BID at home. Plan: - resume home amlodipine. #Hx of CVA. #Hyperlipidemia. - Patient had stroke in 10/27 with hemorrhagic conversion and residual left- sided deficit. Plan: - resume home atorvastatin. Management of other problems as per primary team. Plan of care discussed with attending Dr. Lockhart. Hitesh Pearce MD, PGY 2. Disclaimer: This note was dictated by speech recognition. Minor errors in telecommunicator may be present due to voice recognition software.
--- NOTE | 2025-04-02 14:24 | PC.SS ---
Rounding note: pending one more day before d/c back to [facility].
--- NOTE | 2025-04-02 22:46 | VVPN_ITS ---
Telemedicine visit statement This visit was conducted with the use of interactive audio and video telecommunications system that permits real time communication between the patient and the provider. Patient's verbal consent for virtual visit was obtained on 04/02/25 at 2246. Documentation for date of: 04/02/25 Subjective Subjective Interval history: Patient is in [facility]. Her mental status is reportedly improved today, she is more awake and alert and is able to participate in conversation. Continues to have left dense hemiplegia, tolerating oral diet well. Virtual exam Vital Signs Temp Pulse Resp BP Pulse Ox O2 Del Method O2 Flow Rate 97.8 F 63 17 133/69 H 99 Nasal Cannula 1 04/02/25 19:50 04/02/25 19:50 04/02/25 19:50 04/02/25 19:50 04/02/25 19:50 04/02/25 19:50 04/02/25 19:50 Objective Labs 04/04/25 05:08 04/04/25 05:08 Labs: Laboratory Results - last 24 hr 04/01/25 04/02/25 22:24 05:24 WBC 10.2 RBC 4.01 Hgb 12.4 Hct 36.1 MCV 90 MCH 30.9 MCHC 34.3 RDW Std Deviation 43.2 Plt Count 360 Neut % (Auto) 74 Lymph % (Auto) 15 [place] % (Auto) 9 Eos % (Auto) 0 Baso % (Auto) 1 Neut # (Auto) 7.6 Lymph # (Auto) 1.5 [place] # (Auto) 1.0 H Eos # (Auto) 0.0 Baso # (Auto) 0.1 Immature Gran # (Auto) 0.04 H Absolute Nucleated RBC 0.00 Immature Gran % 0 Nucleated RBC % 0 PT 11.6 INR 1.1 Sodium 138 Potassium 4.0 Chloride 97 L Carbon Dioxide 30.3 Anion Gap 11 BUN 20 Creatinine 1.0 Estim Creat Clear Calc 35.5 L eGFR 57 L BUN/Creatinine Ratio 20 Glucose 100 Calculated Osmolality 278 Lactic Acid 2.0 Calcium 9.6 Phosphorus 4.0 Magnesium 1.7 Total Bilirubin 0.4 Direct Bilirubin 0.1 AST 43 H ALT 47 Alkaline Phosphatase 95 D Total Protein 6.6 Albumin 3.6 D Triglycerides 117 Cholesterol 136 LDL Cholesterol, Calc 66 HDL Cholesterol 47 Cholesterol/HDL Ratio 2.9 L Assessment & Plan Assessment 1) 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 Will hold off on antiplatelet/anticoagulant therapy for at least 2 months because of the recent intracerebral hemorrhage event. (2) altered mental status from focal seizures: continue with the Keppra 1000 mg twice a day. Will continue to monitor her closely (3) Hypertension: Continue with aggressive blood pressure management
[2025-04-03] VITALS (8 sets, daily range): BP systolic 123–138; BP diastolic 59–73; PULSE 52–83; RESP 11–18; TEMP 36.2–36.6; O2SAT 96–100; BMI 25.4
[2025-04-03] MEDS: PIPER/TAZO 2.25 GM 2.25 GM/50 ML BAG IV ×4 (00:55→20:28)
[2025-04-03] MEDS: LEVOTHYROXINE SODIUM 112 MCG TABLET GT (05:31)
[2025-04-03 06:22] LABS: Basophils # (Auto) 0.1 Thou/mm3 (0.0-0.2); Basophils % (Auto) 2 % (0-2.5); Eosinophils # (Auto) 0.5 Thou/mm3 (0.0-0.5); Eosinophils % (Auto) 7 % (0-10); Hematocrit 33.6 % (36.0-46.0); Hemoglobin 11.4 g/dL (12.0-16.0); Immature Granulocytes % (Auto) 0 % (0-0); Immature Granulocytes Auto 0.02 Thou/mm3 (0.00-0.00); Lymphocytes # (Auto) 1.1 Thou/mm3 (1.0-4.8); Lymphocytes % (Auto) 17 % (10-50); Mean Corpuscular HGB Conc 33.9 g/dl (31.0-37.0); Mean Corpuscular Hemoglobin 30.9 pg (25.0-35.0); Mean Corpuscular Volume 91 fL (80-100); Monocytes # (Auto) 0.9 Thou/mm3 (0.0-0.8); Monocytes % (Auto) 14 % (0-12); Neutrophils # (Auto) 3.9 Thou/mm3 (1.8-7.7); Neutrophils % (Auto) 60 % (37-80); Nucleated Red Blood Cell % 0 /100 WBC (0); Platelet Count 315 Thou/mm3 (140-440); RDW Standard Deviation 44.3 fL (36.4-46.3); Red Blood Count 3.69 Miln/mm3 (4.00-5.20); White Blood Count 6.5 Thou/mm3 (3.6-11.0)
[2025-04-03 06:32] LABS: Anion Gap 11 (7-16); BUN/Creatinine Ratio 18 Ratio (12-20); Blood Urea Nitrogen 21 mg/dL (9-23); Calcium 9.5 mg/dL (8.3-10.6); Carbon Dioxide 31.5 mMol/L (20.0-31.0); Chloride 99 mMol/L (98-107); Creatinine (Component) 1.2 mg/dL (0.6-1.3); Estimated Creatinine Clearance 31.7 mL/min (>60); Glucose 85 mg/dL (74-106); Osmolality,Calculated 283 (275-295); Potassium 3.6 mMol/L (3.4-5.1); Sodium 141 mMol/L (136-145); eGFR 46 See Note
--- NOTE | 2025-04-03 07:50 | ESPR_ITS ---
<Statement entered by Destinee Patel MD - 04/07/25 15:45> I reviewed above note and agree with findings and plans. I have also personally examined the patient with medicine team and went over assessment and plan with medical team including hospitality internship and resident physician. Documentation for date of: 04/03/25 Subjective Subjective Interval history: Patient was seen and examined at bedside this morning. No acute overnight events. Patient labs this morning look fairly unremarkable. Patient only ate her dinner last night and her creatinine did slightly go up but still within normal limits. Given this patient is more likely fluid depleted and will give 1 L IV fluids. No seizures since admission. Urine culture still pending and pending further recommendations from neurology. Otherwise no new complaints at this time. Exam Vital Signs Temp Pulse Resp BP Pulse Ox O2 Del Method O2 Flow Rate 97.7 F 54 L 11 L 129/69 96 Nasal Cannula 1 04/03/25 04:00 04/03/25 04:00 04/03/25 04:00 04/03/25 04:00 04/03/25 04:00 04/03/25 04:00 04/03/25 04:00 Narrative Exam General: A/O x3, no acute distress, elderly, frail female Eyes: PERRL, EOMI. Anicteric, vision grossly intact. Ears: No ear pain, no ear discharge, Hearing grossly intact. Nose: No nasal discharge. Mouth/Throat: Moist mucous membranes, no redness, no lesions. Neck: Neck supple, non-tender, no cervical lymphadenopathy. Lungs: Clear MARC to auscultation and percussion, No accessory muscle use. Cardio: Normal S1/S2, regular rhythm, systolic murmur appreciated, no JVD Abdomen: Soft, non-tender, no palpable masses, peristalsis present, no guarding or rebound. Extremities: Symmetrical, no significant deformities, no peripheral edema , non-tender, peripheral pulses presents left side hemiparesis. Skin: No rashes, no lesions, warm to touch. Neuro: Left-sided hemiparesis from previous stroke, right side strength by movement intact. AAO x 3. Able to follow commands. Psych: Cooperative,slow speech Objective Labs 04/03/25 05:04 04/03/25 05:04 Labs: Laboratory Results - last 24 hr 04/03/25 05:04 WBC 6.5 RBC 3.69 L Hgb 11.4 L Hct 33.6 L MCV 91 MCH 30.9 MCHC 33.9 RDW Std Deviation 44.3 Plt Count 315 D Neut % (Auto) 60 Lymph % (Auto) 17 [place] % (Auto) 14 H Eos % (Auto) 7 Baso % (Auto) 2 Neut # (Auto) 3.9 Lymph # (Auto) 1.1 [place] # (Auto) 0.9 H Eos # (Auto) 0.5 Baso # (Auto) 0.1 Immature Gran # (Auto) 0.02 H Absolute Nucleated RBC 0.00 Immature Gran % 0 Nucleated RBC % 0 Sodium 141 Potassium 3.6 Chloride 99 Carbon Dioxide 31.5 H Anion Gap 11 BUN 21 Creatinine 1.2 Estim Creat Clear Calc 31.7 L eGFR 46 L BUN/Creatinine Ratio 18 Glucose 85 Calculated Osmolality 283 Calcium 9.5 Quality Measures Quality Measures VTE prophylaxis Advance care planning discussed with:: patient and child Assessment & Plan Assessment Current Active Medications: Generic Name Dose Route Start Last Admin Trade Name Freq PRN Reason Stop Dose Admin Acetaminophen 650 mg 04/01/25 21:36 Acetaminophen 325 Mg Tablet PO 05/01/25 21:35 Q6H PRN PAIN OR FEVER > 101 Atropine Sulfate 1 mg 04/01/25 21:39 Atropine Sulf Inj 1 Mg/Ml Vial IV 05/01/25 21:38 Q5MIN PRN symptomatic bradycardia Ezetimibe 10 mg 04/03/25 09:00 Ezetimibe 10 Mg Tablet GT 05/03/25 08:59 QDAY JOHNY Piperacillin/Tazobactam/Dextrose 2.25 gm in 50 mls @ 100 mls/hr 04/02/25 07:45 04/03/25 00:55 Zosyn IV 04/09/25 07:44 100 mls/hr Q6H JOHNY Administration Lactated Ringer's 1,000 mls @ 75 mls/hr 04/03/25 07:15 Lactated Ringers IV 04/03/25 20:34 .[id number] JOHNY Levetiracetam 1,000 mg 04/02/25 09:00 04/02/25 20:30 Levetiracetam Inj 100 Mg/Ml Vial 5ml IVP 05/02/25 08:59 1,000 mg Q12HR JOHNY Administration Levothyroxine Sodium 112 mcg 04/02/25 06:00 04/03/25 05:31 Levothyroxine Sodium 112 Mcg Tablet GT 05/02/25 05:59 112 mcg ACBR JOHNY Administration Ondansetron HCl 4 mg 04/01/25 21:36 Ondansetron Inj 2 Mg/Ml Inj 2 Ml IV 05/01/25 21:35 Q6H PRN NAUSEA OR VOMITING Protocol Pharmacy Consult 1 each 04/02/25 07:40 Pharmacy Renal Dose Adjustment 1 Ea XX 05/02/25 07:39 PRN PRN CONSULT Sennosides 2 tab 04/02/25 20:03 Senna Tablet GT 05/01/25 21:35 BID PRN CONSTIPATION Protocol Plan 80-year-old female with past medical history of ischemic stroke with hemorrhagic conversion, seizure, hypertension, A-fib, CKD, and PEG tube secondary to stroke was admitted to the hospital on 04/01/2025 due to acute encephalopathy likely in the setting of seizure and sinus bradycardia. #Breakthrough seizures #Encephalopathy, resolved #UTI Patient does have a history of seizures and yesterday she started having right- sided twitching and blank stare. Given bradycardia neurology stated to start Keppra. Patient could have had breakthrough seizures likely secondary to UTI as she has previously been also been admitted for similar symptoms. Patient's last urine cultures showed ESBL E. coli therefore we will base our antibiotic regimen off those cultures given history of multidrug-resistant bacteria. Patient does have some type of reaction to Ativan therefore if Ativan is required we will do 0.25 mg Plan: IV Keppra 1000 twice daily Continue Zosyn (04/02/2025?) Urine cultures pending Neurology consulted, appreciate recommendations Seizure precautions Referral to speech lu Referred to PT #Sinus bradycardia #Possible sick sinus syndrome Patient came in with heart rate in the 30s per chart review in the ER. Cardiology was consulted and decided to admit the patient for further workup HR in the high 50s and low 60s overnight Plan: Atropine 1 mg every 5 minutes as needed for symptomatic bradycardia Patient has pacer pads Cardiology consulted, appreciate recommendations #Hx of hypothyroidism #Hx of hypertension Will continue with home levothyroxine Blood pressure has been under control therefore we will hold off from antihypertensive medications in the setting of bradycardia #Hx of A-fib #Hx of ischemic CVA with hemorrhagic conversion s/p PEG tube Holding metoprolol and anticoagulation for now as per cardiology Patient has an allergy to pravastatin therefore will restart ezetimibe 10mg Patient's daughter patient has been eating normally in the fall using the PEG tube Disposition: Pending neuro and PT. Diet: Dysphagia 3 cardiac GI prophylaxis: not indicated DVT prophylaxis: SCDs Code: Full Case disclosed with Attending Dr. Jorge Hernandez PGY1 Disclaimer: Even though this this note was dictated by speech recognition and even though it was carefully revised there may still be minor errors in whitewasher due to voice recognition software.
[2025-04-03] MEDS: levETIRAcetam INJ 100 MG/ML VIAL 5ML 1000 MG IVP ×2 (08:05→20:29)
[2025-04-03] MEDS: RINGERS LACTATED 1000 ML 1,000 ML 75 ML IV (08:06)
[2025-04-03] MEDS: EZETIMIBE 10 MG TABLET GT (08:06)
--- NOTE | 2025-04-03 11:11 | PC.SS ---
Follow up note: SS received a call to speak with daughter at bedside. Daughter states she was told her mother's Medicare days were up at facility. She now wants to take her home. She prefers HH with a list of private careprovider agencies. SS explained that she will need to pay privately for the careproviders. SS explained the home health process. Patient will d/c home with her daughter, Cat and will need all DME. Patient will need a hospital bed, go lift, wheelchair. Patient will follow up her p.c.p. who is in [place] and is Dr. Villalobos. Last appt. was in Aug/Sep. Patient has been in SNF's so she's only seen Dr. Duron. Patient will need to get re-esatablished. Patient has Medicare and orders can be sent to [facility]. Patient will need gurney transport home. She will be total care. SS explained that to daughter. She is aware. She will need a list of community resources as well.
[2025-04-03] MEDS: ONDANSETRON INJ 2 MG/ML INJ 2 ML 4 MG IV (13:40)
--- NOTE | 2025-04-03 13:40 | ESPR_ITS ---
<Statement entered by Junior Lockhart MD - 04/04/25 19:36> I personally evaluate the patient examined appears to be clinically improving not have any chest pain shortness of breath much more alert awake no seizures so far no significant bradycardia noted need for placement plantation evaluate the patient with the treatment plan recommendations reviewed by me personally agree with treatment plan recommendation as documented by PGY 2 Dr. Proctor Documentation for date of: 04/03/25 Subjective Subjective Interval history: Patient is a 79-year-old female with past medical history of CVA [10/27 with hemorrhagic conversion and residual left-sided deficit, 12/29], seizures [admitted on 12/14 for status epilepticus requiring intubation], A-fib not on anticoagulation secondary to hemorrhagic conversion, hypertension, hyperlipidemia, hypothyroidism presented to the ED due to episode of seizures. She is on Keppra 1g BID for seizures. Per daughter at the bedside she was visiting patient at the SNF when she suddenly developed seizure episode and ambulance was called. She was seen in cardiology office yesterday and was doing totally fine. In the ED her BP 169/62, HR 66, RR 18, temp 99F, saturation 99% on RA. CBC was unremarkable. Other labs pending. EKG showed sinus rhythm with HR 64. During evaluation ED stuff noticed HR of 38 and patient at that time reported feeling dizzy therefore cardiology was consulted. Her HR went up spontaneously to 60s. 04/01/2025: Patient was seen and examined at the bedside. She appears weak and is not maintaining eye contact, able to follow commands. She reports feeling not normal but can't specify what's the problem. During evaluation by cardiology team patient developed another episode of seizures. 04/02/2025: Patient was seen and examined at the bedside. No acute overnight events. Patient did not have any more seizures. Her heart rate was mostly in high 50s?60s and was asymptomatic. Patient is unlikely has sick sinus syndrome, her bradycardia and dizziness are likely related to episode of vomiting immediately prior to the event. Continue monitoring patient. Continue working with neurology due to recurrent seizures. 04/03/2025: Patient was seen and examined at the bedside. No acute overnight events. Her heart rate was mostly in high 50s?60s and was asymptomatic for 2 nights. She is more alert and responsive and appears to be baseline. She can be discharged from cardiology standpoint. Continue home medications except beta libia, hold it untill follow up with Dr. Lockhart in 1 week. Exam Vital Signs Temp Pulse Resp BP Pulse Ox O2 Del Method O2 Flow Rate 97.7 F 56 L 18 129/59 L 100 Nasal Cannula 2 04/03/25 12:00 04/03/25 12:00 04/03/25 12:00 04/03/25 12:00 04/03/25 12:00 04/03/25 12:00 04/03/25 12:00 Narrative Exam Gen: Well-developed and well-nourished elderly female. HEENT: NCAT, PERRLA, EOMI, MMM, anicteric conjunctivae. CVS: normal S1 and S2. RRR. Systolic murmur over aortic area. Resp: CTA B/L. No rhonchi, rales, crackles or wheezing. Abd: soft, non-tender, non-distended. BS+ in all 4 quadrants. PEG tube in place. MSK: Good ROM in BUE & BLE. No edema or rash. Neuro: Left-sided hemiparesis from previous stroke, right side strength by movement intact. AAO x 3. Objective Labs 04/03/25 05:04 04/03/25 05:04 Labs: Laboratory Results - last 24 hr 04/03/25 05:04 WBC 6.5 RBC 3.69 L Hgb 11.4 L Hct 33.6 L MCV 91 MCH 30.9 MCHC 33.9 RDW Std Deviation 44.3 Plt Count 315 D Neut % (Auto) 60 Lymph % (Auto) 17 [place] % (Auto) 14 H Eos % (Auto) 7 Baso % (Auto) 2 Neut # (Auto) 3.9 Lymph # (Auto) 1.1 [place] # (Auto) 0.9 H Eos # (Auto) 0.5 Baso # (Auto) 0.1 Immature Gran # (Auto) 0.02 H Absolute Nucleated RBC 0.00 Immature Gran % 0 Nucleated RBC % 0 Sodium 141 Potassium 3.6 Chloride 99 Carbon Dioxide 31.5 H Anion Gap 11 BUN 21 Creatinine 1.2 Estim Creat Clear Calc 31.7 L eGFR 46 L BUN/Creatinine Ratio 18 Glucose 85 Calculated Osmolality 283 Calcium 9.5 Quality Measures Quality Measures VTE prophylaxis Advance care planning discussed with:: patient Assessment & Plan Assessment Current Active Medications: Generic Name Dose Route Start Last Admin Trade Name Freq PRN Reason Stop Dose Admin Acetaminophen 650 mg 04/01/25 21:36 Acetaminophen 325 Mg Tablet PO 05/01/25 21:35 Q6H PRN PAIN OR FEVER > 101 Atropine Sulfate 1 mg 04/01/25 21:39 Atropine Sulf Inj 1 Mg/Ml Vial IV 05/01/25 21:38 Q5MIN PRN symptomatic bradycardia Ezetimibe 10 mg 04/03/25 09:00 04/03/25 08:06 Ezetimibe 10 Mg Tablet GT 05/03/25 08:59 10 mg QDAY JOHNY Administration Piperacillin/Tazobactam/Dextrose 2.25 gm in 50 mls @ 100 mls/hr 04/02/25 07:45 04/03/25 08:05 Zosyn IV 04/09/25 07:44 100 mls/hr Q6H JOHNY Administration Lactated Ringer's 1,000 mls @ 75 mls/hr 04/03/25 07:15 04/03/25 08:06 Lactated Ringers IV 04/03/25 20:34 75 mls/hr .[id number] JOHNY Administration Levetiracetam 1,000 mg 04/02/25 09:00 04/03/25 08:05 Levetiracetam Inj 100 Mg/Ml Vial 5ml IVP 05/02/25 08:59 1,000 mg Q12HR JOHNY Administration Levothyroxine Sodium 112 mcg 04/02/25 06:00 04/03/25 05:31 Levothyroxine Sodium 112 Mcg Tablet GT 05/02/25 05:59 112 mcg ACBR JOHNY Administration Ondansetron HCl 4 mg 04/01/25 21:36 04/03/25 13:40 Ondansetron Inj 2 Mg/Ml Inj 2 Ml IV 05/01/25 21:35 4 mg Q6H PRN Administration NAUSEA OR VOMITING Protocol Pharmacy Consult 1 each 04/02/25 07:40 Pharmacy Renal Dose Adjustment 1 Ea XX 05/02/25 07:39 PRN PRN CONSULT Sennosides 2 tab 04/02/25 20:03 Senna Tablet GT 05/01/25 21:35 BID PRN CONSTIPATION Protocol Plan Patient is a 79-year-old female with 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 During evaluation ED stuff noticed HR of 38 and patient at that time reported feeling dizzy therefore cardiology was consulted. Her HR went up spontaneously to 60s. #Episode of bradycardia. - Patient had HR of 38 and at that time reported feeling dizzy. Previously diagnosed with Afib on metoprolol and amiodarone. No significant bradycardia over 2 nights in hospital, HR was mostly in high 50s-60s. - Patient developed bradycardia after vomiting, likely related to it. Plan: - can be discharged from cardology standpoint. - hold metoprolol. #Hx of Afib. - in sinus rhythm, bradycardic. Plan: - hold home metoprolol. - do not start anticoagulation due to recent ICH. #Hx of hypertension. - on admission BP in 160s. On amlodipine 5 mg BID at home. Plan: - resume home amlodipine. #Hx of CVA. #Hyperlipidemia. - Patient had stroke in 10/27 with hemorrhagic conversion and residual left- sided deficit. Plan: - resume home atorvastatin. Management of other problems as per primary team. Plan of care discussed with attending Dr. Lockhart. Hitesh Pearce MD, PGY 2. Disclaimer: This note was dictated by speech recognition. Minor errors in control and recovery combat rescue may be present due to voice recognition software.
--- NOTE | 2025-04-03 20:18 | ESPR_ITS ---
Documentation for date of: 04/03/25 Subjective Subjective Interval history: Patient was seen in telemetry today at the bedside. Continue to have dense left hemiplegia with spasticity and contracture. She moves right upper and lower extremities well. She has not had any seizures since admission. Exam - Neurology Vital Signs Temp Pulse Resp BP Pulse Ox O2 Del Method O2 Flow Rate 97.2 F 60 15 123/60 98 Nasal Cannula 1 04/03/25 16:00 04/03/25 16:00 04/03/25 16:00 04/03/25 16:00 04/03/25 16:00 04/03/25 16:00 04/03/25 16:00 Narrative Exam GENERAL APPEARANCE: Well hydrated, well-nourished , in no acute distress HEENT: Normocephalic, atraumatic, extraocular movements intact. Pupils: Equal reacting to light NECK: Supple, no JVD or bruits. CARDIOVASULAR: Heart: S1, S2 heard, regular without S3-S4 or murmur no rubs or gallops. LUNGS/CHEST: Clear to auscultation bilaterally. No rails, rhonchi, or wheezing. Normal inspection. ABDOMEN: Soft, nontender, with normal bowel sounds. No pulsatile masses. No rebound, rigidity, or guarding. Normal inspection and palpation. EXTREMITIES: Normal inspection and palpation. No edema, clubbing or cyanosis. SKIN: Warm and dry without rashes. Normal inspection. MUSCULOSKELETAL: No cervical, thoracic, lumbar or midline bony tenderness. Normal inspection. NEURO: Patient is awake, alert, oriented x3, Continue to have dense left hemiplegia with spasticity and contracture noted. Moves right upper and lower extremities. Gait: Not tested. PSYCHIATRIC: Limited Objective Labs 04/04/25 05:08 04/04/25 05:08 Labs: Laboratory Results - last 24 hr 04/03/25 05:04 WBC 6.5 RBC 3.69 L Hgb 11.4 L Hct 33.6 L MCV 91 MCH 30.9 MCHC 33.9 RDW Std Deviation 44.3 Plt Count 315 D Neut % (Auto) 60 Lymph % (Auto) 17 [place] % (Auto) 14 H Eos % (Auto) 7 Baso % (Auto) 2 Neut # (Auto) 3.9 Lymph # (Auto) 1.1 [place] # (Auto) 0.9 H Eos # (Auto) 0.5 Baso # (Auto) 0.1 Immature Gran # (Auto) 0.02 H Absolute Nucleated RBC 0.00 Immature Gran % 0 Nucleated RBC % 0 Sodium 141 Potassium 3.6 Chloride 99 Carbon Dioxide 31.5 H Anion Gap 11 BUN 21 Creatinine 1.2 Estim Creat Clear Calc 31.7 L eGFR 46 L BUN/Creatinine Ratio 18 Glucose 85 Calculated Osmolality 283 Calcium 9.5 Assessment & Plan Additional Assessment & Plan Additional Plan: 1) 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 Will hold off on antiplatelet/anticoagulant therapy because of the recent intracerebral hemorrhage event. (2) altered mental status with focal seizures Continue with Keppra, seizure precautions. Continue with Ativan, follow-up with the repeat EEG to evaluate further. (3) Hypertension: Continue with aggressive blood pressure management
[2025-04-04] VITALS (10 sets, daily range): BP systolic 133–152; BP diastolic 67–86; PULSE 61–95; RESP 16–19; TEMP 36.2–36.8; O2SAT 93–100; BMI 25.4
[2025-04-04] MEDS: PIPER/TAZO 2.25 GM 2.25 GM/50 ML BAG IV (02:33)
[2025-04-04] MEDS: LEVOTHYROXINE SODIUM 112 MCG TABLET GT (05:48)
[2025-04-04 06:06] LABS: Basophils # (Auto) 0.1 Thou/mm3 (0.0-0.2); Basophils % (Auto) 1 % (0-2.5); Eosinophils # (Auto) 0.4 Thou/mm3 (0.0-0.5); Eosinophils % (Auto) 6 % (0-10); Hematocrit 33.1 % (36.0-46.0); Hemoglobin 11.5 g/dL (12.0-16.0); Immature Granulocytes % (Auto) 0 % (0-0); Immature Granulocytes Auto 0.02 Thou/mm3 (0.00-0.00); Lymphocytes # (Auto) 1.4 Thou/mm3 (1.0-4.8); Lymphocytes % (Auto) 20 % (10-50); Mean Corpuscular HGB Conc 34.7 g/dl (31.0-37.0); Mean Corpuscular Hemoglobin 30.9 pg (25.0-35.0); Mean Corpuscular Volume 89 fL (80-100); Monocytes # (Auto) 0.8 Thou/mm3 (0.0-0.8); Monocytes % (Auto) 10 % (0-12); Neutrophils # (Auto) 4.6 Thou/mm3 (1.8-7.7); Neutrophils % (Auto) 62 % (37-80); Nucleated Red Blood Cell % 0 /100 WBC (0); Platelet Count 320 Thou/mm3 (140-440); Red Blood Count 3.72 Miln/mm3 (4.00-5.20); White Blood Count 7.3 Thou/mm3 (3.6-11.0)
[2025-04-04 06:50] LABS: Anion Gap 10 (7-16); BUN/Creatinine Ratio 15 Ratio (12-20); Blood Urea Nitrogen 18 mg/dL (9-23); Calcium 9.4 mg/dL (8.3-10.6); Carbon Dioxide 30.5 mMol/L (20.0-31.0); Chloride 101 mMol/L (98-107); Creatinine (Component) 1.2 mg/dL (0.6-1.3); Estimated Creatinine Clearance 31.7 mL/min (>60); Glucose 97 mg/dL (74-106); Osmolality,Calculated 283 (275-295); Potassium 3.6 mMol/L (3.4-5.1); Sodium 141 mMol/L (136-145); eGFR 46 See Note
[2025-04-04] MEDS: DOXYCYCLINE INJ 100 MG in SODIUM CHLORIDE 0.9% (POP) 100 ML IV ×2 (08:27→20:32)
[2025-04-04] MEDS: EZETIMIBE 10 MG TABLET GT (08:28)
[2025-04-04] MEDS: levETIRAcetam INJ 100 MG/ML VIAL 5ML 1000 MG IVP ×2 (08:30→20:32)
--- NOTE | 2025-04-04 10:18 | PC.SS ---
Addendum entered by Ame Reyes 04/04/25 13:41: SS connected with Cat at 1152 at bedside. She stated she is worried patient is having jerking movements that can lead to seizures in the past. Cat confirmed address for DME delivery [address] [place] [address]. [facility] [id number]. Cat stated she would be paying out of pocket for SNF if needed, she confirmed she is aware of the patient reaching her maximum allowed days with Medicare. SS attempted to contact patient's daughter Jessica [phone]) to confirm address for DME delivery. Unable to leave message. Original Note: Ivy Lift Patient requires transfer between the bed, chair, wheelchair and commode that requires the assistance of more than one person. Without the use of the lift, the patient would be confined or a dependent transfer. Wheel Chairs Patient's diagnosis creates mobility limitations that significantly impairs ability to participate in the patient?s activities of daily living either in their entirety, or in a reasonable time frame in the home and the patients mobility limitations cannot be sufficiently resolved with an appropriately fitted cane or walker. In addition, the use of a manual wheelchair will sufficiently improve patient?s ability to participate in the activities of daily living in the home and the patient is willing to use the wheelchair that is provided in the home. The patient has some one in the home that is available, willing and able to provide assistance with the wheelchair. Hospital Bed Patient?s diagnosis requires positioning of the head or upper body to be elevated more than 30 degrees. In addition, the diagnosis requires positioning in order to alleviate pain and if the patient requires frequent changes in the body positioning and/or has an immediate need for change in the body position. Pillows and wedges have been considered and ruled out.
--- NOTE | 2025-04-04 13:11 | ESPR_ITS ---
<Statement entered by Destinee Patel MD - 04/09/25 12:36> I reviewed above note and agree with findings and plans. I have also personally examined the patient with medicine team and went over assessment and plan with medical team including programming intern and resident physician. Documentation for date of: 04/04/25 Subjective Subjective Interval history: Patient was examined at bedside this morning, no acute overnight event. Urine culture showed ESBL UTI which was resistant to Zosyn. Discontinued Zosyn and started the patient on Doxy. As per Dr Rolon she will not need an EEG. Will continue Keppra thousand twice daily. Exam Vital Signs Temp Pulse Resp BP Pulse Ox O2 Del Method O2 Flow Rate 97.1 F 85 19 135/75 H 96 Room Air 1 04/04/25 12:00 04/04/25 12:04/04/25 12:04/04/25 12:04/04/25 12:04/04/25 12:04/04/25 08:00 Narrative Exam General: A/O x3, no acute distress, elderly, frail female Eyes: PERRL, EOMI. Anicteric, vision grossly intact. Ears: No ear pain, no ear discharge, Hearing grossly intact. Nose: No nasal discharge. Mouth/Throat: Moist mucous membranes, no redness, no lesions. Neck: Neck supple, non-tender, no cervical lymphadenopathy. Lungs: Clear MARC to auscultation and percussion, No accessory muscle use. Cardio: Normal S1/S2, regular rhythm, systolic murmur appreciated, no JVD Abdomen: Soft, non-tender, no palpable masses, peristalsis present, no guarding or rebound. Extremities: Symmetrical, no significant deformities, no peripheral edema , non-tender, peripheral pulses presents left side hemiparesis. Skin: No rashes, no lesions, warm to touch. Neuro: Left-sided hemiparesis from previous stroke, right side strength by movement intact. AAO x 3. Able to follow commands. Psych: Cooperative,slow speech Objective Labs 04/04/25 05:08 04/04/25 05:08 Labs: Laboratory Results - last 24 hr 04/04/25 05:08 WBC 7.3 RBC 3.72 L Hgb 11.5 L Hct 33.1 L MCV 89 MCH 30.9 MCHC 34.7 RDW Std Deviation 43.0 Plt Count 320 Neut % (Auto) 62 Lymph % (Auto) 20 [place] % (Auto) 10 Eos % (Auto) 6 Baso % (Auto) 1 Neut # (Auto) 4.6 Lymph # (Auto) 1.4 [place] # (Auto) 0.8 Eos # (Auto) 0.4 Baso # (Auto) 0.1 Immature Gran # (Auto) 0.02 H Absolute Nucleated RBC 0.00 Immature Gran % 0 Nucleated RBC % 0 Sodium 141 Potassium 3.6 Chloride 101 Carbon Dioxide 30.5 Anion Gap 10 BUN 18 Creatinine 1.2 Estim Creat Clear Calc 31.7 L eGFR 46 L BUN/Creatinine Ratio 15 Glucose 97 Calculated Osmolality 283 Calcium 9.4 Quality Measures Quality Measures VTE prophylaxis Advance care planning discussed with:: patient Assessment & Plan Assessment Current Active Medications: Generic Name Dose Route Start Last Admin Trade Name Freq PRN Reason Stop Dose Admin Acetaminophen 650 mg 04/01/25 21:36 Acetaminophen 325 Mg Tablet PO 05/01/25 21:35 Q6H PRN PAIN OR FEVER > 101 Atropine Sulfate 1 mg 04/01/25 21:39 Atropine Sulf Inj 1 Mg/Ml Vial IV 05/01/25 21:38 Q5MIN PRN symptomatic bradycardia Ezetimibe 10 mg 04/03/25 09:00 04/04/25 08:28 Ezetimibe 10 Mg Tablet GT 05/03/25 08:59 10 mg QDAY JOHNY Administration Doxycycline Hyclate 100 mg/ 100 mls @ 100 mls/hr 04/04/25 09:00 04/04/25 08:27 Sodium Chloride IV 04/11/25 08:59 100 mls/hr BID JOHNY Administration Levetiracetam 1,000 mg 04/02/25 09:00 04/04/25 08:30 Levetiracetam Inj 100 Mg/Ml Vial 5ml IVP 05/02/25 08:59 1,000 mg Q12HR JOHNY Administration Levothyroxine Sodium 112 mcg 04/02/25 06:00 04/04/25 05:48 Levothyroxine Sodium 112 Mcg Tablet GT 05/02/25 05:59 112 mcg ACBR JOHNY Administration Ondansetron HCl 4 mg 04/01/25 21:36 04/03/25 13:40 Ondansetron Inj 2 Mg/Ml Inj 2 Ml IV 05/01/25 21:35 4 mg Q6H PRN Administration NAUSEA OR VOMITING Protocol Pharmacy Consult 1 each 04/02/25 07:40 Pharmacy Renal Dose Adjustment 1 Ea XX 05/02/25 07:39 PRN PRN CONSULT Sennosides 2 tab 04/02/25 20:03 Senna Tablet GT 05/01/25 21:35 BID PRN CONSTIPATION Protocol Plan 80-year-old female with past medical history of ischemic stroke with hemorrhagic conversion, seizure, hypertension, A-fib, CKD, and PEG tube secondary to stroke was admitted to the hospital on 04/01/2025 due to acute encephalopathy likely in the setting of seizure and sinus bradycardia. #Breakthrough seizures #Encephalopathy, resolved #ESBL UTI Patient does have a history of seizures and yesterday she started having right- sided twitching and blank stare. Given bradycardia neurology stated to start Keppra. Patient could have had breakthrough seizures likely secondary to UTI as she has previously been also been admitted for similar symptoms. Patient's last urine cultures showed ESBL E. coli therefore we will base our antibiotic regimen off those cultures given history of multidrug-resistant bacteria. Patient does have some type of reaction to Ativan therefore if Ativan is required we will do 0.25 mg IV Keppra 1000 twice daily Continue Zosyn (04/02/2025?) Urine cultures pending Neurology consulted, appreciate recommendations Seizure precautions Referral to [facility] Referred to PT 04/04/2025: Urine culture showed ESBL UTI which was resistant to Zosyn. Discontinued Zosyn and started the patient on Doxy. As per Dr Rolon she will not need an EEG. Will continue Keppra thousand twice daily. #Sinus bradycardia- resolved #Possible sick sinus syndrome Patient came in with heart rate in the 30s per chart review in the ER. Cardiology was consulted and decided to admit the patient for further workup HR in the high 50s and low 60s overnight Plan: Atropine 1 mg every 5 minutes as needed for symptomatic bradycardia Patient has pacer pads Cardiology consulted, appreciate recommendations, 04/04/2025: Bradycardia resolved , will continue all of her home medications except beta-libia and she will follow-up with Dr. Lcokhart within 1 to 2 weeks of discharge. #Hx of hypothyroidism #Hx of hypertension Will continue with home levothyroxine Will continue home antihypertensive medication except beta-libia #Hx of A-fib #Hx of ischemic CVA with hemorrhagic conversion s/p PEG tube Holding metoprolol and anticoagulation for now as per cardiology Patient has an allergy to pravastatin therefore will restart ezetimibe 10mg Patient's daughter patient has been eating normally in the fall using the PEG tube Disposition: Pending disposition anticipated discharge in next 24 to 48 hours. Diet: Dysphagia 3 cardiac GI prophylaxis: not indicated DVT prophylaxis: SCDs Code: Full Case disclosed with Attending Dr. Jorge Benavides MD, PGY-3
--- NOTE | 2025-04-04 22:56 | ESPR_ITS ---
RE: ANDRE AWAN : 1945 DATE OF SERVICE: 04/04/2025 SUBJECTIVE: Andre Awan appears to be doing better. She is not having chest pain or shortness of breath. She is eating this evening. She does not complain of orthopnea, PND. No further seizures and bradycardia is resolved as well today. OBJECTIVE: Vital Signs: Blood pressure 140/70, pulse 87. Neck: Supple. No JVD. Chest: Symmetrical. Lungs: Clear. Heart: Sounds regular. No gallops. Abdomen: Thin and soft. Extremities: No edema. ASSESSMENT: 1. Status post stroke with hemorrhagic stroke improving, previous stroke. 2. Bradycardia, resolved. 3. Seizures, improved. RECOMMENDATIONS: Continue medical management. No need for pacemaker implantation since her heart rate is now improving. DT: 19:55:00 TT: 22:16:00 Ref: [id number] - TID: [id number]
--- NOTE | 2025-04-04 23:51 | PD.NEUROPROG ---
Documentation for date of: 04/04/25 Subjective Subjective Interval history: Patient was seen in telemetry today at the bedside. Continue to have dense left hemiplegia with spasticity and contracture. She moves right upper and lower extremities well. She has not had any seizures since admission. Exam - Neurology Vital Signs Temp Pulse Resp BP Pulse Ox O2 Del Method O2 Flow Rate 97.9 F 95 18 152/86 H 95 Room Air 1 04/04/25 20:00 04/04/25 20:00 04/04/25 20:00 04/04/25 20:00 04/04/25 20:00 04/04/25 20:00 04/04/25 09:00 Narrative Exam GENERAL APPEARANCE: Well hydrated, well-nourished , in no acute distress HEENT: Normocephalic, atraumatic, extraocular movements intact. Pupils: Equal reacting to light NECK: Supple, no JVD or bruits. CARDIOVASULAR: Heart: S1, S2 heard, regular without S3-S4 or murmur no rubs or gallops. LUNGS/CHEST: Clear to auscultation bilaterally. No rails, rhonchi, or wheezing. Normal inspection. ABDOMEN: Soft, nontender, with normal bowel sounds. No pulsatile masses. No rebound, rigidity, or guarding. Normal inspection and palpation. EXTREMITIES: Normal inspection and palpation. No edema, clubbing or cyanosis. SKIN: Warm and dry without rashes. Normal inspection. MUSCULOSKELETAL: No cervical, thoracic, lumbar or midline bony tenderness. Normal inspection. NEURO: Patient is awake, alert, oriented x3, Continue to have dense left hemiplegia with spasticity and contracture noted. Moves right upper and lower extremities. Gait: Not tested. PSYCHIATRIC: Limited Objective Labs 04/04/25 05:08 04/04/25 05:08 Labs: Laboratory Results - last 24 hr 04/04/25 05:08 WBC 7.3 RBC 3.72 L Hgb 11.5 L Hct 33.1 L MCV 89 MCH 30.9 MCHC 34.7 RDW Std Deviation 43.0 Plt Count 320 Neut % (Auto) 62 Lymph % (Auto) 20 [place] % (Auto) 10 Eos % (Auto) 6 Baso % (Auto) 1 Neut # (Auto) 4.6 Lymph # (Auto) 1.4 [place] # (Auto) 0.8 Eos # (Auto) 0.4 Baso # (Auto) 0.1 Immature Gran # (Auto) 0.02 H Absolute Nucleated RBC 0.00 Immature Gran % 0 Nucleated RBC % 0 Sodium 141 Potassium 3.6 Chloride 101 Carbon Dioxide 30.5 Anion Gap 10 BUN 18 Creatinine 1.2 Estim Creat Clear Calc 31.7 L eGFR 46 L BUN/Creatinine Ratio 15 Glucose 97 Calculated Osmolality 283 Calcium 9.4 Assessment & Plan Additional Assessment & Plan Additional Plan: 1) 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 Will hold off on antiplatelet/anticoagulant therapy because of intracerebral hemorrhage event. (2) altered mental status with focal seizures Continue with Keppra, seizure precautions. Continue with Ativan. Hold off on repeat EEG (3) Hypertension: Continue with aggressive blood pressure management
[2025-04-05] VITALS (9 sets, daily range): BP systolic 136–162; BP diastolic 81–90; PULSE 62–90; RESP 14–20; TEMP 36.5–36.9; O2SAT 92–98; BMI 25.4
[2025-04-05] MEDS: LEVOTHYROXINE SODIUM 112 MCG TABLET GT (05:47)
[2025-04-05] MEDS: levETIRAcetam INJ 100 MG/ML VIAL 5ML 1000 MG IVP (08:31)
[2025-04-05] MEDS: DOXYCYCLINE INJ 100 MG in SODIUM CHLORIDE 0.9% (POP) 100 ML IV (08:31)
[2025-04-05] MEDS: EZETIMIBE 10 MG TABLET GT (08:32)
[2025-04-05] MEDS: amLODIPine BESYLATE 5 MG TABLET PO (08:32)
--- NOTE | 2025-04-05 09:00 | PC.SS ---
Update: Plan is to d/c patient home today.
[2025-04-05] MEDS: FOSFOMYCIN PWD 3 GM PACKET (NON-FORMULARY) PO (11:17)
--- NOTE | 2025-04-05 13:17 | PC.SS ---
A&P TECHNICIAN met with patient's daughter, Cat Castillo ; who stated plan is to return patien to [facility]. Daughter informed A&P TECHNICIAN awareness of out of pocket cost.
--- NOTE | 2025-04-05 13:18 | PC.SS ---
HOT MOLDER contacted [facility] admissions staff to provide update on plan on transitioning patient back to SNF. Family to pay out of pocket cost. Cost approximately $1652.00 for one week. HOT MOLDER informed by [facility] finance staff, Valarie Pereira; that patient possesses 3-4 days of Medicare coverage. Placement will be for 1 week. HOT MOLDER updated patient's daughter.
--- NOTE | 2025-04-05 13:21 | PC.SS ---
STRIPPER SOFT PLASTIC confirmed with [facility] staff, Kavita; that patient can return to SNF. STRIPPER SOFT PLASTIC relayed that [facility] department has confirmed patient possesses 3-4 days of Medicare coverage.
--- NOTE | 2025-04-05 13:22 | PC.SS ---
CHARGE ACCOUNT CLERK notified patient's daughter, Cat Castillo; that patient will require gurney transport to SNF. Due patient not possessing transport coverage out of pocket cost required to schedule gurney transport. Patient's daughter stated inability to cover gurney transport cost.
--- NOTE | 2025-04-05 13:34 | PC.SS ---
GENETICS TEACHER to provide update on transport to [facility] staff, Kavita; .
--- NOTE | 2025-04-05 14:21 | ESDS_ITS ---
<Statement entered by Destinee Patel MD - 04/11/25 09:32> I reviewed above note and agree with findings and plans. I have also personally examined the patient with medicine team and went over assessment and plan with medical team including international sales manager and resident physician. Planned Discharge Date 04/05/25 DS: Providers Provider Date of admission: 04/01/25 21:36 Primary care physician: Physician No Primary/Family Admitting Provider: Richard Jay MD Attending Provider on Admission: Destinee Patel MD Consults: 04/01/25 19:21 Consult to Cardiology Stat Comment: SSS Consulting Provider: Junior Lockhart 04/01/25 22:57 Consult to Neurology / Tele-Neurology Urgent Comment: Consulting Provider: Charles Rolon 04/01/25 23:06 Referral Registered Dietitian Routine Comment: 04/01/25 23:49 Referral Wound Care Urgent Comment: 04/02/25 09:25 Referral Speech Therapy Routine Comment: 04/03/25 08:53 Referral Physical Therapy Routine Comment: Physician Instructions: Discharging Provider: Sonia Rosa MD DS: Diagnosis Problem List Completed Was Problem List Reviewed/Reconciled?: Yes Hospital Course Hospital Course Hospital course: Reason for hospitalization: Altered mental status, breakthrough seizures Ade Awan is 80 yr female with PMH of ischemic stroke with hemorrhagic conversion, seizure, hypertension, A-fib, CKD, and PEG tube secondary to stroke was admitted to the hospital on 04/01/2025 from [facility] due to acute encephalopathy likely in the setting of seizure and sinus bradycardia. She was having right-sided twitching and blank stare. Neurology Dr. Rolon and cardiology Dr. Lockhart were consulted. Given the bradycardia, patient was started on Keppra 1000mg BID. EEG was not considered necessary per neurology. Work up for AMS included positive urine culture. Patient's last urine cultures showed ESBL E. coli. Therefore, she was started on doxycycline 100mg BID for seven days. Bradycardia resolved during admission. We held all rate controlling agents including her beta libia. Cardiology stated there was no need for pacemeaker. Due to pravastatin allergy, patient was resumed on ezetimibe 10mg. Patient is now in stable condition and ready for discharge. Recommendations were given as below. Discharge Recommendations: Stop taking atorvastatin due to your allergy. Stop taking metoprolol and nifedipine due to your low heart rate. Resume only after seeing your payment rep. Take doxycycline 100 mg twice daily for 7 days Continue taking seizure medication Keppra 1000mg twice a day. Continue all other medications. Follow up with cardiology Dr. Lockhart in 1-2 weeks. Follow up with neurology Dr. Rolon in 1-2 weeks. Follow up with PCP in 1-2 weeks. Return to ED if symptoms worsen. Hospital Diagnoses: #Breakthrough seizures #Encephalopathy, resolved #ESBL UTI #Sinus bradycardia #Hx of hypothyroidism #Hx of hypertension #Hx of A-fib #Hx of ischemic CVA with hemorrhagic conversion #s/p PEG tube The patient's management plan was discussed with my attending physician Dr. Patel. Sonia Rosa MD, PGY-1 Time Spent with Patient Time attestation: Total time spent providing and/or coordinating discharge services: Time spent: Greater than 30 minutes Exam Vital Signs Temp Pulse Resp BP Pulse Ox O2 Del Method O2 Flow Rate 98.2 F 68 14 136/86 H 94 L Room Air 1 04/05/25 12:04/05/25 12:04/05/25 12:04/05/25 12:04/05/25 12:04/05/25 12:04/05/25 00:00 Narrative Exam General: A/O x3, no acute distress, elderly, frail female Eyes: PERRL, EOMI. Anicteric, vision grossly intact. Ears: No ear pain, no ear discharge, Hearing grossly intact. Nose: No nasal discharge. Mouth/Throat: Moist mucous membranes, no redness, no lesions. Neck: Neck supple, non-tender, no cervical lymphadenopathy. Lungs: Clear MARC to auscultation and percussion, No accessory muscle use. Cardio: Normal S1/S2, regular rhythm, systolic murmur appreciated, no JVD Abdomen: Soft, non-tender, no palpable masses, peristalsis present, no guarding or rebound. Extremities: Symmetrical, no significant deformities, no peripheral edema , non-tender, peripheral pulses presents left side hemiparesis. Skin: No rashes, no lesions, warm to touch. Neuro: Left-sided hemiparesis from previous stroke, right side strength by movement intact. AAO x 3. Able to follow commands. Psych: Cooperative,slow speech Discharge Plan Plan Patient Disposition: Xfer Skilled Nsg Fac (SNF) Patient condition on transfer: Stable Prescriptions/Referrals Prescriptions/Med Rec: New doxycycline hyclate 100 mg capsule 100 mg PO BID Qty: 7 0RF Continued levetiracetam [Keppra] 1,000 mg tablet 1,000 mg PO BID Qty: 90 0RF levothyroxine 100 mcg capsule 100 mcg PO QDAY Qty: 180 0RF Rx Instructions: Give at-least 30 mins before breakfast amlodipine 5 mg tablet 5 mg PO BID amiodarone 200 mg tablet 200 mg PO BID docusate sodium [Colace] 100 mg capsule 100 mg PO Q12HR PRN (Reason: constipation ) Rx Instructions: Hold for loose stools ezetimibe 10 mg tablet 10 mg PO .qday Patient Comments: TAKE 1 TABLET BY MOUTH EVERY DAY lidocaine 5 % adhesive patch,medicated 1 patch topical Q24H Rx Instructions: leave on most painful area for up to 12 hrs CalaSoothe 0.44-20.6 % cream in packet 1 applic topical Q6HR PRN (Reason: pain) sennosides [senna] 8.6 mg tablet 8.6 mg PO Q12H PRN (Reason: constipation) acetaminophen [Tylenol] 325 mg tablet 650 mg feeding tube Q4H PRN (Reason: pain) Discontinued nifedipine 30 mg Tablet Extended Release 24hr 30 mg PO QDAY atorvastatin 20 mg Tablet 20 mg PO HS metoprolol tartrate [Lopressor] 50 mg tablet 50 mg PO BID Referrals: No Primary/Family,Physician [Primary Care Provider] - Junior Lockhart MD [Physician] - Charles Rolon MD [Physician] - Patient/Caregiver Discharge Instructions Other Discharge Activity Instructions:: Stop taking atorvastatin due to your allergy. Stop taking metoprolol and nifedipine due to your low heart rate. Resume only after seeing your payment rep. Take doxycycline 100 mg twice daily for 7 days Continue taking seizure medication Keppra 1000mg twice a day. Continue all other medications. Follow up with cardiology Dr. Lockhart in 1-2 weeks. Follow up with neurology Dr. Rolon in 1-2 weeks. Follow up with PCP in 1-2 weeks. Return to ED if symptoms worsen. Education Materials: Discharge Instructions for Epilepsy, ED About Arrhythmias Print Language: Barbadian Stand Alone Forms: [employer] Info., Patient Portal Info Letter Discharge Order Discharge Orders: Discharge (Routine); Ordered 04/05/25 Ordered By: Coby Mcdaniel Quality Discharge Quality Measures VTE prophylaxis
--- NOTE | 2025-04-05 16:48 | PC.SS ---
[facility] transport scheduled for 5:45 pm. [facility] to provide transportation. DERRICK ENGINEER notified SNF, patient's daughter and bedside nurse.
--- NOTE | 2025-04-05 17:20 | PC.NURSE ---
CALLED REPORT TO [facility], SPOKE TO ADAMS, STAFF NURSE.
== END 2025-04-05 19:08 | disposition skilled nursing facility (03) | DRG 101 ==
LOC: SERX 19:22 → SERHOLD 21:55 → S2NX 23:09
PROVIDERS: Emergency Medicine; Student in an Organized Health Care Education/Training Program; Admitting Provider Student in an Organized Health Care Education/Training Program; Emergency Provider Emergency Medicine; Visit Provider Internal Medicine
DX: G40.209 Localization-related (focal) (partial) symptomatic epilepsy and epileptic syndromes with complex partial seizures, not intractable, without status epilepticus (principal); I48.20 Chronic atrial fibrillation, unspecified; G93.40 Encephalopathy, unspecified; N39.0 Urinary tract infection, site not specified; Z16.11 Resistance to penicillins; Z16.12 Extended spectrum beta lactamase (ESBL) resistance; I69.354 Hemiplegia and hemiparesis following cerebral infarction affecting left non-dominant side; Z16.24 Resistance to multiple antibiotics; Z93.1 Gastrostomy status; I12.9 Hypertensive chronic kidney disease with stage 1 through stage 4 chronic kidney disease, or unspecified chronic kidney disease; N18.9 Chronic kidney disease, unspecified; I48.0 Paroxysmal atrial fibrillation; E03.9 Hypothyroidism, unspecified; I49.5 Sick sinus syndrome; E83.42 Hypomagnesemia; E78.00 Pure hypercholesterolemia, unspecified; Z88.8 Allergy status to other drugs, medicaments and biological substances; Z95.0 Presence of cardiac pacemaker; Z88.5 Allergy status to narcotic agent; Z88.2 Allergy status to sulfonamides; Z79.899 Other long term (current) drug therapy
CPT/HCPCS: 36415; 70450; 71045; 80048; 80053; 80061; 80076; 81001; 83605; 83735; 83880; 84100; 84146; 84439; 84443; 84484; 85025; 85610; 85730; 87077; 87081; 87086; 87186; 92610; 93005; 96374; 99285; J0696; J1953; J2060; J2405; J2543; J3475; J3490; J7120; A9270

== ENCOUNTER 2025-04-11 09:59 | Emergency (ER) | payer MEDICARE, BC, SELFPAY ==
[2025-04-11] VITALS (7 sets, daily range): BP systolic 150–164; BP diastolic 85–94; PULSE 66–80; RESP 12–19; TEMP 36.5–36.7; O2SAT 94–97; BMI 22.8
--- NOTE | 2025-04-11 10:45 | EDNOTE_ITS ---
ED Weakness RME/HPI General Chief complaint: Weakness Stated complaint: WEAKNESS Time Seen by Provider: 04/11/25 10:53 Arrival date/time: 04/11/25 09:59 Limitations: no limitations RME / HPI RME / HPI Narrative: 80 year old female with history of CVA, ICH, seizure disorder, A-fib, hypertension, CKD, s/p PEG tube presents to the ED BIBA from [facility] for evaluation of weakness. Per medics, [place] staff reported patient recently was diagnosed with a UTI and prescribed antibiotics that were switched 2 days ago. Reportedly staff have noticed since changing the antibiotics the patient has had increased lethargy, appears weak, and is having more trouble with swallowing. 1045 I spoke with patients daughter who adds to HPI. State the only antibiotic the patient was prescribed is Doxycyline and are not aware of the patient taking any other antibiotic. Stated the patient is queued to be discharged tomorrow and had been evaluated by neurologist and PCP yesterday. The reason they come in today is because the correction had lost the recent labs the patient had performed and was advised to come in. Daughter additionally report they are concerned the patient has had trouble clearing her secretions otherwise no new weakness and alertness is at baseline per daughter. Related Data Home Medications ?Medication ?Instructions ?Recorded ?Confirmed acetaminophen 325 mg tablet 650 mg feeding tube Q4H CO N pain 12/14/24 04/02/25 (Tylenol) docusate sodium 100 mg capsule 100 mg PO Q12HR PRN con stipation 12/14/24 04/02/25 (Colace) ezetimibe 10 mg tablet 10 mg PO .qday high choleste rol 12/14/24 04/02/25 lidocaine 5 % topical patch 1 patch topical Q24H 12/1404/02/25 menthol 0.44 %-zinc oxide 20.6 % 1 applic topical Q6HR PRN pain 12/14/24 04/02/25 topical cream packet (CalaSoothe) sennosides 8.6 mg tablet (senna) 8.6 mg PO Q12H PRN co nstipation 12/14/24 04/02/25 amiodarone 200 mg tablet 200 mg PO BID 04/02/2504/02 amlodipine 5 mg tablet 5 mg PO BID 04/02/2504/02/ 5 Previous Rx's ?Medication ?Instructions ?Recorded levetiracetam 1,000 mg tablet 1,000 mg PO BID #90 tabs 01/16/25 (Keppra) levothyroxine 100 mcg capsule 100 mcg PO QDAY #180 cap s 01/16/25 doxycycline hyclate 100 mg capsule 100 mg PO BID #7 ca ps 04/05/25 ciprofloxacin HCl 500 mg tablet 500 mg PO BID uti #20 tabs 04/11/25 (Cipro) Allergies Allergy/AdvReac Type Severity Reaction Status Date / Time codeine Allergy Verified 12/13/24 19:10 pravastatin Allergy Verified 12/13/24 19:10 promethazine (From Phenergan) Allergy Verified 12/13/24 19:10 sulfamethoxazole (From Allergy Verified 12/13/24 19:10 Bactrim) trimethoprim (From Bactrim) Allergy Verified 12/13/24 19:10 Review of Systems Review of Systems Systems Reviewed: All systems reviewed, normal except as documented Past Medical History Past Medical History NEUROLOGIC: Positive Cerebrovascular Accident, Seizures and Epilepsy CARDIAC: Positive Atrial Fibrillation, Hypercholesterolemia, Deep Vein Thrombosis (left arm) and Hypertension ENT: Positive Deafness ENDOCRINE: Positive Hypothyroidism OTHER HISTORY: Positive Hospitalization Family History FAMILY HISTORY: Positive Family Respiratory Disorders, Family Cardiac Disorders and Family Gastrointestinal Problems Surgical History SURGICAL: Positive Gastrostomy (PEG TUBE) Social History SMOKING STATUS: Never smoker ED Exam General Limitations: Present no limitations General appearance: Present alert and in no apparent distress Head Head exam: Present atraumatic, normocephalic and normal inspection Eye Eye exam: Present normal appearance, PERRL and EOMI ENT ENT exam: Present normal exam, normal oropharynx and mucous membranes moist Neck Neck exam: Present normal inspection, full ROM and trachea midline Chest Chest inspection: Present normal inspection and symmetric chest wall rise Respiratory Respiratory exam: Present normal lung sounds bilaterally Cardiovascular Cardiovascular exam: Present regular rate, normal rhythm and normal heart sounds Abdominal Exam Abdominal exam: Present soft, normal bowel sounds and other (PEG tube ) Extremities Exam Extremities exam: Present normal inspection and full ROM Back Exam Back exam: Present normal inspection and full ROM Neurological Exam Neurological exam: Present alert, oriented X3 and CN II-XII intact Psychiatric Psychiatric exam: Present normal affect and normal mood Skin Skin exam: Present warm, dry, intact and normal color Course Quality Measures none Orders Category Date Time Status 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 Care 04/11/25 10:53 Active Continuous Pulse Oximetry NOW Care 04/11/25 10:53 Completed EKG (ED ONLY) *Do not use* NOW Care 04/11/25 10:53 Completed In and Out Catheter X1 Care 04/11/25 11:23 Completed Insert IV NOW Care 04/11/25 10:53 Completed EKG (ED Only) Stat Exams 04/11/25 10:53 Draft XR chest 1V portable Stat Exams 04/11/25 10:53 Completed CBC Stat Lab 04/11/25 11:33 Completed Comprehensive Metabolic Panel Stat Lab 04/11/25 11:35 Completed Partial Thromboplastin Time Stat Lab 04/11/25 11:18 Completed Prothrombin Time with INR Stat Lab 04/11/25 11:18 Completed Troponin I Stat Lab 04/11/25 11:35 Completed Urinalysis Stat Lab 04/11/25 11:39 Completed CIPROFLOXACIN/D5w 400 MG IVPB [Cipro Ivpb] Med 04/11/25 10:54 Discontinued 400 mg in 200 ml IV X1 Sodium Chloride 0.9% 1000 ml [Ns] 1,000 ml Med 04/11/25 10:53 Active IV 100 mls/hr Vital Signs Vital signs: Vital Signs Temperature 97.7 F 04/11/25 10:16 Pulse Rate 75 04/11/25 10:16 Respiratory Rate 16 04/11/25 10:16 Blood Pressure 155/85 H 04/11/25 10:16 Pulse Oximetry (%) 95 04/11/25 10:16 Oxygen Delivery Method Room Air 04/11/25 10:16 Pulse ox is 95% on room air which is adequate. Weakness MDM Narrative MDM Narrative:: Brittney Santana am scribing for and in the presence of Dr. Thomas. Patient data External records reviewed:: [facility] previous records (I reviewed admission from through 04/05/2025), EMS form and [facility] records (I reviewed pmhx and medication list from [facility] ) Clinical information provided by:: patient, EMS and family (Daughter ) Social determinants that could affect healthcare access:: housing (SNF resident ) Patient has the following chronic illnesses:: CVA, ICH, seizure disorder, A-fib, hypertension, CKD, s/p PEG tube How is presenting disease/condition affected by chronic disease/condition?: exacerbated by Evaluation data The following diagnostics were reviewed and interpreted by me:: lab results, radiology exam(s) and EKG tracing(s) (04/11/2025 @ 11:42 AM. Sinus rhythm, rate 69, no acute ischemic changes, CO 180ms, QRS 104ms, QT/QTc 416/435ms. ) Lab and/or radiology exams considered but not ordered:: None Interpretation Summary: Ordering Physician: Lewis Thomas MD Date of Service: 04/11/25 Procedure(s): XR chest 1V portable Accession Number(s): [id number] cc: Lewis Thomas MD; Will Duron MD; Zander Crump MD~ Examination: AP chest single view Technique one AP portable semiupright chest single view Indications: Coughing fever today Findings: Pneumonia left base with left pleural fluid Right lung clear Mild prominence left ventricle Impression: Significant pneumonia left base Dictated By: Zander Crump MD Signed By: <Electronically signed by Zander Crump MD in OV> 04/11/25 1516 Medications / Prescriptions Medications or Prescriptions considered but not ordered:: See above Medication administrations:: Medication Administration History Sodium Chloride (Ns) 1,000 mls @ 100 mls/hr IV .Q10H ONE Stop: 04/11/25 20:52 Last Admin: 04/11/25 11:01 Dose: 100 mls/hr Documented By: KLEVER Discontinued Medications Ciprofloxacin/Dextrose (Cipro Ivpb) 400 mg in 200 mls @ 200 mls/hr IV X1 ONE Stop: 04/11/25 11:53 Last Infusion: 04/11/25 13:34 Dose: Infused Documented By: Admin: 04/11/25 11:20 Dose: 200 mls/hr Documented By: LEISA See above Consultations Consultation(s) initiated? (list below): No Diagnosis Weakness Differential Diagnosis: acute myocardial infarction, anemia, hypothyroidism, sepsis, dehydration and other (UTI ) Most likely diagnosis given after review of the tests above:: ARDS secondary to UTI UTI Encephalopathy 2/2 UTI Admission Indicated Admission indicated?: not indicated Admission Request Was there a request for admission?: No Disposition Plan Disposition Plan: Discharge Discharge Attestation Discharge Attestation: The patient and all family members were given an opportunity to ask questions and understood the discharge instructions. Discharge instructions specifically effects, indications for sooner follow up or return to the emergency department, and the expected course of current diagnosis. Patient condition: Stable Discharge Plan Plan Patient Disposition: Xfer Skilled Nsg Fac ([facility]) Discharge Disposition comment: Back to SNF Prescriptions/Referrals Prescriptions/Med Rec: New ciprofloxacin HCl [Cipro] 500 mg tablet 500 mg PO BID MDD 2 Qty: 20 0RF No Action levetiracetam [Keppra] 1,000 mg tablet 1,000 mg PO BID Qty: 90 0RF levothyroxine 100 mcg capsule 100 mcg PO QDAY Qty: 180 0RF Rx Instructions: Give at-least 30 mins before breakfast amlodipine 5 mg tablet 5 mg PO BID amiodarone 200 mg tablet 200 mg PO BID doxycycline hyclate 100 mg capsule 100 mg PO BID Qty: 7 0RF docusate sodium [Colace] 100 mg capsule 100 mg PO Q12HR PRN (Reason: constipation ) Rx Instructions: Hold for loose stools ezetimibe 10 mg tablet 10 mg PO .qday Patient Comments: TAKE 1 TABLET BY MOUTH EVERY DAY lidocaine 5 % adhesive patch,medicated 1 patch topical Q24H Rx Instructions: leave on most painful area for up to 12 hrs CalaSoothe 0.44-20.6 % cream in packet 1 applic topical Q6HR PRN (Reason: pain) sennosides [senna] 8.6 mg tablet 8.6 mg PO Q12H PRN (Reason: constipation) acetaminophen [Tylenol] 325 mg tablet 650 mg feeding tube Q4H PRN (Reason: pain) Problem List Clinical Impression: Adult respiratory distress syndrome, UTI (urinary tract infection), Encephalopathy, Hypercalcemia Patient/Caregiver Discharge Instructions Education Materials: Urinary Tract Infections in Women, ARDS Additional Instructions: Stop the Doxycycline and start Ciprofloxacin. Follow-up with your primary care doctor in 3 to 5 days for recheck. You can return to the emergency department sooner if symptoms worsen or if you notice any new, concerning issues. Print Language: Bangladeshi Stand Alone Forms: Kaycee Award Info., Patient Portal Info Letter
--- NOTE | 2025-04-11 10:53 | XR_ITS ---
Examination: AP chest single view Technique one AP portable semiupright chest single view Indications: Coughing fever today Findings: Pneumonia left base with left pleural fluid Right lung clear Mild prominence left ventricle Impression: Significant pneumonia left base
--- NOTE | 2025-04-11 10:53 | EKG_ITS ---
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
--- NOTE | 2025-04-11 10:55 | PC.NURSE ---
Pt ANNY from [facility] per staff pt daughter's wanted EMS to be called due to change of condition in mentation pt baseline in GCS 15 and per daughter she is delayed in her response and having a hrd time swallowing. Per daughter pt has the gtube in place but it has not been used fro about 1 week and is eating a chopped diet now, pt was tolerating it well until today daughter noticed pt was having a hard time to swallow today's breakfast.. Daughter is concerned too cause ot was recently diagnosed with a UTI and instead of PO ABX improving her condition she has been sicker per daughter.
[2025-04-11] MEDS: SODIUM CHLORIDE 0.9% 1000 ML 1,000 ML 100 ML IV (11:01)
[2025-04-11] MEDS: CIPROFLOXACIN/D5w 400 MG IVPB 400 MG/200 ML BAG 200 MG IV (11:20)
[2025-04-11 11:46] LABS: Basophils # (Auto) 0.1 Thou/mm3 (0.0-0.2); Basophils % (Auto) 2 % (0-2.5); Eosinophils # (Auto) 0.2 Thou/mm3 (0.0-0.5); Eosinophils % (Auto) 2 % (0-10); Hematocrit 36.3 % (36.0-46.0); Hemoglobin 12.8 g/dL (12.0-16.0); Immature Granulocytes % (Auto) 0 % (0-0); Immature Granulocytes Auto 0.02 Thou/mm3 (0.00-0.00); Lymphocytes # (Auto) 1.5 Thou/mm3 (1.0-4.8); Lymphocytes % (Auto) 21 % (10-50); Mean Corpuscular HGB Conc 35.3 g/dl (31.0-37.0); Mean Corpuscular Hemoglobin 30.8 pg (25.0-35.0); Mean Corpuscular Volume 88 fL (80-100); Monocytes # (Auto) 0.6 Thou/mm3 (0.0-0.8); Monocytes % (Auto) 8 % (0-12); Neutrophils # (Auto) 4.8 Thou/mm3 (1.8-7.7); Neutrophils % (Auto) 67 % (37-80); Nucleated Red Blood Cell % 0 /100 WBC (0); Platelet Count 390 Thou/mm3 (140-440); RDW Standard Deviation 41.8 fL (36.4-46.3); Red Blood Count 4.15 Miln/mm3 (4.00-5.20); White Blood Count 7.1 Thou/mm3 (3.6-11.0)
[2025-04-11 11:52] LABS: Collection Type, Urine Clean Catch; Squamous Epithelial Cell,Urine 0 /hpf (0-5)
[2025-04-11 12:12] LABS: Alanine Aminotransferase 35 U/L (10-49); Albumin, Serum 3.6 gm/dL (3.4-4.8); Albumin/Globulin Ratio 1.1 (1.2-2.2); Alkaline Phosphatase 83 U/L (46-116); Anion Gap 15 (7-16); BUN/Creatinine Ratio 17 Ratio (12-20); Bilirubin,Total 0.4 mg/dL (0.3-1.2); Blood Urea Nitrogen 20 mg/dL (9-23); Calcium 10.8 mg/dL (8.3-10.6); Calcium (Corrected) 11.1 mg/dL (8.5-10.1); Carbon Dioxide 24.7 mMol/L (20.0-31.0); Chloride 104 mMol/L (98-107); Creatinine (Component) 1.2 mg/dL (0.6-1.3); Estimated Creatinine Clearance 37.7 mL/min (>60); Globulin 3.2 gm/dL (2.3-3.5); Glucose 82 mg/dL (74-106); Osmolality,Calculated 288 (275-295); Potassium 3.9 mMol/L (3.4-5.1); Sodium 144 mMol/L (136-145); Total Protein 6.8 gm/dL (5.7-8.2); Troponin I < 0.020 ng/mL (0.0-0.045); eGFR 46 See Note
[2025-04-11 12:29] LABS: Bilirubin,Urine Negative (Negative); Blood,Urine Negative (Negative); Clarity,Urine Clear (Clear/Hazy); Color,Urine Yellow (Lt Yel-Yel); Glucose, Urine Negative (Negative); Hyaline Casts,Urine < 1 /hpf (0-1); Ketones,Urine 1+ (Negative); Leukocyte Esterase,Urine Negative (Negative); Nitrite,Urine Negative (Negative); PH,Urine 5.5 (5.0-7.0); Protein,Urine Negative (Neg - Trace); RBC,Urine 2 /hpf (0-3); Specific Gravity,Urine 1.019 (1.001-1.035); Urobilinogen,Urine Negative mg/dL (0.0-1.0); WBC,Urine 4 /hpf (0-5)
[2025-04-11 12:46] LABS: INR 1.2 (0.9-1.3); Partial Thromboplastin Time 22.4 Seconds (22.0-36.0); Prothrombin Time 12.6 Seconds (9.0-12.2)
--- NOTE | 2025-04-11 14:30 | PC.CC ---
Abida GALVIN was consulted by LEEROY Fields for transportation for the patient back to [facility]. ASW arranging transportation via [facility] awaiting a p/u time.
--- NOTE | 2025-04-11 16:23 | PC.NURSE ---
report called to cristóbal de la cruz from [facility] via telephone
--- NOTE | 2025-04-11 17:43 | PRELIM_ITS ---
Radiograph of the chest (single view). April 11, 2025 1122 hours Clinical history: COUGH Comparison: No prior study is available for comparison. Findings: The aorta is ectatic. The heart appears enlarged, partly related to the AP projection. The lungs are clear. There is minimal blunting of the left costophrenic angle. The bony thorax is unremarkable. Impression: No focal consolidation or pleural effusion. Minimal blunting of the left costophrenic angle and a small pleural effusion/pleural thickening cannot be excluded. Report Electronically Signed By: Nataliya Casanova 04/11/2025 5:43:06 PM [EST]
== END 2025-04-11 16:16 | disposition skilled nursing facility (03) ==
LOC: SERX 14:25
PROVIDERS: Emergency Provider Family Medicine; PCP Hospitalist
DX: E83.52 Hypercalcemia (principal); G93.40 Encephalopathy, unspecified; N39.0 Urinary tract infection, site not specified; J80 Acute respiratory distress syndrome; J18.9 Pneumonia, unspecified organism; I48.91 Unspecified atrial fibrillation; I12.9 Hypertensive chronic kidney disease with stage 1 through stage 4 chronic kidney disease, or unspecified chronic kidney disease; N18.9 Chronic kidney disease, unspecified; G40.909 Epilepsy, unspecified, not intractable, without status epilepticus; E78.00 Pure hypercholesterolemia, unspecified
CPT/HCPCS: 51701; 36415; 71045; 80053; 81001; 84484; 85025; 85610; 85730; 93005; 96361; 96365; 96366; 99284; J0744; J7030

== ENCOUNTER 2025-04-13 10:24 | Inpatient (IN) | payer MEDICARE, BC, SELFPAY ==
[2025-04-13] VITALS (7 sets, daily range): BP systolic 142–150; BP diastolic 65–86; PULSE 65–76; RESP 15–96; TEMP 36.5–37.1; O2SAT 95–99; BMI 21.2
--- NOTE | 2025-04-13 | XR_ITS ---
Examination: MRI brain without intravenous contrast. Date and time of exam: April 13, 2025 1826 hours Comparison 01/11/2025 INDICATIONS: History hemorrhagic stroke seizures, enhancing lesions in the right frontal lobe and right parietal lobe on brain MRI December 14, 2024 Technique: Multiple axial and sagittal images of the brain obtained. Siemens high-resolution 1.5 Becky short bore scanners utilized. Sagittal sections, T1-weighted, TR 500, TE 14, are performed. Axial sections proton-density and T2-weighted have been obtained. Inversion recovery axial images, TR 9, 260, TE 111, TI 2500. Diffusion weighted images, axial sections, TR 4800, TE 128, B value 1000 Axial sections, ADC map, TR 4800, TE 128 Findings: All of the images are severely degraded by patient motion Increased signal on the diffusion images in the right temporal, right posterior parietal and occipital lobe with signal deficit on EDC maps are consistent with acute infarct Old infarct in the right middle cerebral artery distribution IMPRESSION: All of the images are severely degraded by patient motion Findings are consistent with acute infarcts in the right posterior parietal right occipital and right temporal lobes
--- NOTE | 2025-04-13 11:08 | XR_ITS ---
Examination: AP chest single view Technique one AP portable upright chest single view Date and time: April 13, 2025 1132 hours Comparison April 11, 2025 INDICATIONS: Coughing today. FINDINGS: Significant pneumonia left base with left pleural fluid Right lung clear Mild prominence left ventricle IMPRESSION: Significant pneumonia left base
--- NOTE | 2025-04-13 11:08 | EKG_ITS ---
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
--- NOTE | 2025-04-13 11:11 | XR_ITS ---
Examination: CT brain head without contrast. 2-D sagittal coronal reconstructions Date and time of exam:April 13, 2025 1124 hours Comparison April 01, 2025 INDICATIONS: Altered mental status today CTDI: vol (mGy):40.9 DLP: (mGycm):813 Technique: Multiple CT axial sections of the brain have been obtained, 5 mm slice thickness. Contrast has not been administered. 2-D sagittal, coronal reconstructions have been obtained Low dose protocols were performed. One or more of the following dose reduction techniques were used; automated exposure control, adjustment of the mA and/or KV according to patient size, use of iterative reconstruction technique. Findings: Right frontal infarct again noted There is hemorrhage density in this infarct on the current study, which may be subacute No mass effect upon the ventricles Ipsilateral right ventricular enlargement from the patient's old infarct in the middle cerebral artery distribution Cranial vault intact IMPRESSION: Chronic changes as above There is hemorrhage density, 20 mm in the right frontal lobe on the current study which may be subacute
--- NOTE | 2025-04-13 11:49 | EDNOTE_ITS ---
Altered Mental Status RME/HPI General Chief Complaint: Altered Mental Status Stated Complaint: AMS Arrival date/time: 04/13/25 10:24 Limitations: no limitations RME / HPI RME / HPI narrative: 80 year old female with history of CVA, ICH, seizure disorder, A-fib, hypertension, CKD, s/p PEG tube presents to the ED BIBA from home for evaluation of altered mental status today. Per medics report, the daughter reported that the patient was diagnosed with a urinary tract infection several days ago and was started on doxycycline. Patient was evaluated in the ED two days ago for similar symptoms of AMS and discharged home with a prescription for ciprofloxacin. Daughter reports administering approximately three doses of doxycycline, but today she noticed the patient was less responsive, just staring at the wall, and had difficulty taking her medications. She also reports that the patient spoke only a few words yesterday and consumed approximately one cup of water. Daughter is concerned about the patient's declining mental status and difficulty with taking her medication. Additionally reported she was discharged home from SNF yesterday. While in the ED, the patient remains unable to provide additional history due to her altered mental state. Related Data Home Medications ?Medication ?Instructions ?Recorded ?Confirmed acetaminophen 325 mg tablet 650 mg feeding tube Q4H NY N pain 12/14/24 04/02/25 (Tylenol) docusate sodium 100 mg capsule 100 mg PO Q12HR PRN con stipation 12/14/24 04/02/25 (Colace) ezetimibe 10 mg tablet 10 mg PO .qday high choleste rol 12/14/24 04/02/25 lidocaine 5 % topical patch 1 patch topical Q24H 12/1404/02/25 menthol 0.44 %-zinc oxide 20.6 % 1 applic topical Q6HR PRN pain 12/14/24 04/02/25 topical cream packet (CalaSoothe) sennosides 8.6 mg tablet (senna) 8.6 mg PO Q12H PRN co nstipation 12/14/24 04/02/25 amiodarone 200 mg tablet 200 mg PO BID 04/02/2504/02 amlodipine 5 mg tablet 5 mg PO BID 04/02/2504/02/ 5 Previous Rx's ?Medication ?Instructions ?Recorded levetiracetam 1,000 mg tablet 1,000 mg PO BID #90 tabs 01/16/25 (Keppra) levothyroxine 100 mcg capsule 100 mcg PO QDAY #180 cap s 01/16/25 doxycycline hyclate 100 mg capsule 100 mg PO BID #7 ca ps 04/05/25 ciprofloxacin HCl 500 mg tablet 500 mg PO BID uti #20 tabs 04/11/25 (Cipro) Allergies Allergy/AdvReac Type Severity Reaction Status Date / Time codeine Allergy Verified 04/13/25 11:01 pravastatin Allergy Verified 04/13/25 11:01 promethazine (From Phenergan) Allergy Verified 04/13/25 11:01 sulfamethoxazole (From Allergy Verified 04/13/25 11:01 Bactrim) trimethoprim (From Bactrim) Allergy Verified 04/13/25 11:01 Review of Systems Review of Systems ROS Unobtainable: unobtainable due to mental status Past Medical History Past Medical History NEUROLOGIC: Positive Cerebrovascular Accident, Seizures and Epilepsy CARDIAC: Positive Atrial Fibrillation, Hypercholesterolemia, Deep Vein Thrombosis (left arm) and Hypertension ENT: Positive Deafness ENDOCRINE: Positive Hypothyroidism OTHER HISTORY: Positive Hospitalization Family History FAMILY HISTORY: Positive Family Respiratory Disorders, Family Cardiac Disorders and Family Gastrointestinal Problems Surgical History SURGICAL: Positive Gastrostomy (PEG TUBE) Social History SMOKING STATUS: Never smoker Past Medical History Comments PMH COMMENT: Past medical history: As above Surgical history: None Allergies: Codeine, pravastatin, promethazine, Bactrim Medicines: Amio, Lipitor, Ezetimibe, Keppra, Synthroid, metoprolol tartrate, nifedipine, and number of laxatives including milk of mag, senna, Colace, Dulcolax. Family history: Family history significant for stroke, diabetes, heart disease. Social history: Denied alcohol, never use drugs, no smoking history. ED Exam General Limitations: Present no limitations General appearance: Present alert and other (Not verbalizing) Head Head exam: Present atraumatic, normocephalic and normal inspection Eye Eye exam: Present normal appearance, PERRL and EOMI ENT ENT exam: Present normal exam, normal oropharynx and mucous membranes moist Neck Neck exam: Present normal inspection, full ROM and trachea midline Chest Chest inspection: Present normal inspection and symmetric chest wall rise Respiratory Respiratory exam: Present normal lung sounds bilaterally and other (No crackles, no rales ); Absent wheezes Cardiovascular Cardiovascular exam: Present regular rate, normal rhythm and normal heart sounds Abdominal Exam Abdominal exam: Present soft and normal bowel sounds Extremities Exam Extremities exam: Present normal inspection and full ROM Back Exam Back exam: Present normal inspection and full ROM Neurological Exam Neurological exam: Present alert and other (Not able to follow my directions, moving all extremities, in bed patient is leaning to the right and does not support her posture, unable to fully assess neuro ) Skin Skin exam: Present warm, dry, intact and normal color Course Quality Measures none Orders Category Date Time Status Residential Sales Consultant NOW Care 04/13/25 11:08 Active Continuous Pulse Oximetry NOW Care 04/13/25 11:08 Completed EKG (ED ONLY) *Do not use* NOW Care 04/13/25 11:08 Completed Insert IV NOW Care 04/13/25 11:[address] head/brain wo con Stat Exams 04/13/25 11:11 Completed EKG (ED Only) Stat Exams 04/13/25 11:08 Draft XR chest 1V portable Stat Exams 04/13/25 11:08 Completed Acetaminophen Stat Lab 04/13/25 11:45 Completed Blood Culture (Lab) Stat Lab 04/13/25 11:45 Received CBC Stat Lab 04/13/25 11:45 Completed Comprehensive Metabolic Panel Stat Lab 04/13/25 11:45 Completed Drug Screen,Urine Stat Lab 04/13/25 14:06 Completed Lactic Acid [Lactate (Lactic Acid)] Stat Lab 04/13/25 11:45 Completed Partial Thromboplastin Time Stat Lab 04/13/25 11:45 Completed Prothrombin Time with INR Stat Lab 04/13/25 11:45 Completed Salicylate Stat Lab 04/13/25 11:45 Completed Troponin I Stat Lab 04/13/25 11:45 Completed Urinalysis Stat Lab 04/13/25 14:06 Completed Azithromycin Inj [Zithromax Inj] 500 mg Med 04/13/25 11:10 Discontinued Sodium Chloride 0.9% 250 ml [Ns] 250 ml IV X1 Sodium Chloride 0.9% 1000 ml [Ns] 1,000 ml Med 04/13/25 11:08 Discontinued IV 100 mls/hr cefTRIAXone [Rocephin] 2 gm Med 04/13/25 11:10 Discontinued SODIUM CHLORIDE 0.9% (Popper) [Ns 0.9% (P)] 50 ml IV X1 Oxygen Delivery NOW RT 04/13/25 11:08 Active Vital Signs Vital signs: Vital Signs Temperature 98.8 F 04/13/25 12:19 Pulse Rate 69 04/13/25 12:19 Respiratory Rate 15 04/13/25 12:19 Blood Pressure 145/86 H 04/13/25 12:19 Pulse Oximetry (%) 95 04/13/25 12:19 Oxygen Delivery Method Room Air 04/13/25 12:19 Pulse ox is 95% on room air which is adequate. Altered Mental Status MDM Narrative MDM Narrative:: Brittney Santana am scribing for and in the presence of Dr. Thomas. 1630: Patients daughter reports she does not want any neurosurgical interventions performed but would still like the patient to receive treatment. Will cancel transfer request. Patient data External records reviewed:: [facility] previous records (I reviewed ED visit on 04/11/2025 ) and EMS form Clinical information provided by:: EMS and family (daughter provides hpi) Social determinants that could affect healthcare access:: none Patient has the following chronic illnesses:: CVA, ICH, seizure disorder, A-fib, hypertension, CKD, s/p PEG tube How is presenting disease/condition affected by chronic disease/condition?: exacerbated by Evaluation data The following diagnostics were reviewed and interpreted by me:: lab results, radiology exam(s) and EKG tracing(s) (04/13/2025 @ 12:27. Sinus rhythm, rate 69, nonspecific T-wave changes, NY 154ms, QRS 98ms, QT/QTc 433/452ms ) Lab and/or radiology exams considered but not ordered:: None Interpretation Summary: Ordering Physician: Lewis Thomas MD Date of Service: 04/13/25 Procedure(s): XR chest 1V portable Accession Number(s): [id number] cc: TAMERA WHITAKER MD; Lewis Thomas MD; Zander Crump MD~ Examination: AP chest single view Technique one AP portable upright chest single view Date and time: April 13, 2025 1132 hours Comparison April 11, 2025 INDICATIONS: Coughing today. FINDINGS: Significant pneumonia left base with left pleural fluid Right lung clear Mild prominence left ventricle IMPRESSION: Significant pneumonia left base Dictated By: Zander Crump MD Signed By: <Electronically signed by Zander Crump MD in OV> 04/13/25 1143 Ordering Physician: Lewis Thomas MD Date of Service: 04/13/25 Procedure(s): CT head/brain wo con Accession Number(s): [id number] cc: TAMERA WHITAKER MD; Lewis Thomas MD; Zander Crump MD~ Examination: CT brain head without contrast. 2-D sagittal coronal reconstructions Date and time of exam:April 13, 2025 1124 hours Comparison April 01, 2025 INDICATIONS: Altered mental status today CTDI: vol (mGy):40.9 DLP: (mGycm):813 Technique: Multiple CT axial sections of the brain have been obtained, 5 mm slice thickness. Contrast has not been administered. 2-D sagittal, coronal reconstructions have been obtained Low dose protocols were performed. One or more of the following dose reduction techniques were used; automated exposure control, adjustment of the mA and/or KV according to patient size, use of iterative reconstruction technique. Findings: Right frontal infarct again noted There is hemorrhage density in this infarct on the current study, which may be subacute No mass effect upon the ventricles Ipsilateral right ventricular enlargement from the patient's old infarct in the middle cerebral artery distribution Cranial vault intact IMPRESSION: Chronic changes as above There is hemorrhage density, 20 mm in the right frontal lobe on the current study which may be subacute Dictated By: Zander Crump MD Signed By: <Electronically signed by Zander Crump MD in OV> 04/13/25 1147 Medications / Prescriptions Medications or Prescriptions considered but not ordered:: None Medication administrations:: Medication Administration History Acetaminophen (Acetaminophen 325 Mg Tablet) 650 mg PO Q6H PRN PRN Reason: Fever >100.4 or Pain 1-10 Stop: 05/13/25 16:43 Lactated Ringer's (Lactated Ringers) 1,000 mls @ 75 mls/hr IV .[id number] JOHNY Stop: 04/14/25 19:30 Levetiracetam (Levetiracetam Inj 100 Mg/Ml Vial 5ml) 1,000 mg IVP Q12HR JOHNY Stop: 05/13/25 16:54 Lorazepam (Lorazepam 2 Mg/Ml Vial) 0.5 mg IVP X1 PRN PRN Reason: SEIZURES Stop: 04/18/25 16:51 Ondansetron HCl (Ondansetron Inj 2 Mg/Ml Inj 2 Ml) 4 mg IVP Q6H PRN; Protocol PRN Reason: NAUSEA OR VOMITING Stop: 05/13/25 16:43 Discontinued Medications Ceftriaxone Sodium 2 gm/ (Sodium Chloride) 50 mls @ 100 mls/hr IV X1 ONE Stop: 04/13/25 11:39 Last Infusion: 04/13/25 14:29 Dose: Infused Documented By: Admin: 04/13/25 13:59 Dose: 100 mls/hr Documented By: ESTHER Azithromycin 500 mg/ Sodium (Chloride) 250 mls @ 250 mls/hr IV X1 ONE Stop: 04/13/25 12:09 Last Infusion: 04/13/25 13:35 Dose: Infused Documented By: Admin: 04/13/25 12:29 Dose: 250 mls/hr Documented By: ESTHER Sodium Chloride (Ns) 1,000 mls @ 100 mls/hr IV .Q10H ONE Stop: 04/13/25 21:07 Last Admin: 04/13/25 12:27 Dose: 100 mls/hr Documented By: ESTHER Sodium Chloride (Sodium Chloride Rt 10% 15 Ml Nebu) 5 ml INH X1 ONE Stop: 04/13/25 16:45 See above Consultations Consultation(s) initiated? (list below): Yes Consultation #1 (Physician, Specialty, Details): I spoke with neurologist Dr. Rolon. Discussed patients PMHx, HPI, ED course, exam findings, labs, and head CT results. States the area of hemorrhage on the head CT today has been present on old head CTs. States patient can be admitted here and agrees to consult. Time: 12:30 Consultation #2 (Physician, Specialty, Details): I spoke with resident working with Dr. Deluca. Discussed patients PMHx, HPI, ED course, exam findings, labs, and radiology results. States they will evaluate the patient. Time: 12:45 Consultation #3 (Physician, Specialty, Details): Received a call back from the resident who states they spoke with neurologist Dr. Rolon. State reviewed the head CTs and noted the area of hemorrhage today to be larger than previous. Advised transferring the patient. 1633: I spoke with neurologist Dr. Rolon and made aware of daughters request for no neurosurgical interventions. Advised cancelling transfer and admitting here. 1637: I spoke with hospitalist Dr. Deluca and made aware of families request and Dr. Rolon's recommendations. Patient accepted for admission. 1642: I spoke with neurosurgeon at [facility] who reports he had reviewed chart and imaging and would not require surgical intervention. Diagnosis Differential diagnosis altered mental status: altered mental status, dementia, hyponatremia, subarachnoid hemorrhage, sepsis and other (UTI, pneumonia ) Most likely diagnosis given after review of the tests above:: Acute pneumonia, left Hx of CVA Hemorrhagic density in the right frontal lobe Admission Indicated Admission indicated?: indicated Admission Request Was there a request for admission?: Yes Admission Attestation Admission request attestation: Discussed case with [] from Hospitalist service regarding admission. Discussed patients ED course, exam findings, labs, and radiology results. The Hospitalist [agrees,declines] to accept the patient for admission. Disposition Plan Disposition Plan: Admit Critical Care Time Critical Care Time Critical Care Time: Yes Total Critical Care Time (min.): 120 Attestation: The high probability of sudden, clinically significant deterioration in the patient's condition required the highest level of my preparedness to intervene urgently. The services I provided to this patient were to treat and/or prevent clinically significant deterioration. Services included the following: chart data review, reviewing nursing notes and/or old charts, documentation time, contamination consultant collaboration regarding findings and treatment options, medication orders and management, direct patient care, vital sign assessments and ordering, interpreting and reviewing diagnostic studies and lab tests. Aggregate critical care time includes only time during which I was engaged in work directly related to the patient's care, as described above, whether at bedside or elsewhere in the Emergency Department. It did not include time spent performing other reported procedures or the services of residents, students, nurses or physician assistants. Discharge Plan Plan Patient Disposition: Admit Acute Care w/in Hospital Problem List Clinical Impression: Pneumonia involving left lung, Hemorrhagic stroke, Hx of completed stroke
[2025-04-13 11:59] LABS: Lactate (Lactic Acid) 1.9 mMol/L (0.4-2.0)
[2025-04-13 12:00] LABS: Basophils # (Auto) 0.1 Thou/mm3 (0.0-0.2); Basophils % (Auto) 1 % (0-2.5); Eosinophils % (Auto) 0 % (0-10); Hematocrit 38.2 % (36.0-46.0); Hemoglobin 13.6 g/dL (12.0-16.0); Immature Granulocytes % (Auto) 0 % (0-0); Immature Granulocytes Auto 0.02 Thou/mm3 (0.00-0.00); Lymphocytes # (Auto) 1.7 Thou/mm3 (1.0-4.8); Lymphocytes % (Auto) 20 % (10-50); Mean Corpuscular HGB Conc 35.6 g/dl (31.0-37.0); Mean Corpuscular Volume 87 fL (80-100); Monocytes # (Auto) 0.8 Thou/mm3 (0.0-0.8); Monocytes % (Auto) 9 % (0-12); Neutrophils # (Auto) 5.7 Thou/mm3 (1.8-7.7); Neutrophils % (Auto) 69 % (37-80); Nucleated Red Blood Cell % 0 /100 WBC (0); Platelet Count 389 Thou/mm3 (140-440); RDW Standard Deviation 42.6 fL (36.4-46.3); Red Blood Count 4.39 Miln/mm3 (4.00-5.20); White Blood Count 8.3 Thou/mm3 (3.6-11.0)
[2025-04-13 12:21] LABS: INR 1.2 (0.9-1.3); Partial Thromboplastin Time 20.9 Seconds (22.0-36.0); Prothrombin Time 12.9 Seconds (9.0-12.2)
[2025-04-13 12:23] LABS: Acetaminophen < 2.0 mcg/mL (10.0-20.0); Alanine Aminotransferase 39 U/L (10-49); Albumin, Serum 3.7 gm/dL (3.4-4.8); Albumin/Globulin Ratio 1.2 (1.2-2.2); Alkaline Phosphatase 84 U/L (46-116); Anion Gap 20 (7-16); BUN/Creatinine Ratio 20 Ratio (12-20); Bilirubin,Total 0.6 mg/dL (0.3-1.2); Blood Urea Nitrogen 30 mg/dL (9-23); Calcium 10.9 mg/dL (8.3-10.6); Calcium (Corrected) 11.1 mg/dL (8.5-10.1); Carbon Dioxide 21.8 mMol/L (20.0-31.0); Chloride 105 mMol/L (98-107); Creatinine (Component) 1.5 mg/dL (0.6-1.3); Globulin 3.2 gm/dL (2.3-3.5); Glucose 83 mg/dL (74-106); Osmolality,Calculated 297 (275-295); Potassium 3.8 mMol/L (3.4-5.1); Salicylate < 3.0 mg/dL; Sodium 147 mMol/L (136-145); Total Protein 6.9 gm/dL (5.7-8.2); Troponin I < 0.020 ng/mL (0.0-0.045); eGFR 35 See Note
[2025-04-13] MEDS: SODIUM CHLORIDE 0.9% 1000 ML 1,000 ML 100 ML IV (12:27)
[2025-04-13] MEDS: AZITHROMYCIN INJ 500 MG in SODIUM CHLORIDE 0.9% 250 ML 250 ML 250 MG IV (12:29)
[2025-04-13] MEDS: cefTRIAXone 2 GM in SODIUM CHLORIDE 0.9% (Popper) 50 ML IV (13:59)
[2025-04-13 14:19] LABS: Collection Type, Urine Clean Catch
--- NOTE | 2025-04-13 14:20 | PD.RESCONSUL ---
HPI Data of Consult Primary Care Provider: Cayden Little MD Consult Narrative Reason for consult: Altered mental status History of present illness: Patient is an 80-year-old female with past medical history of ischemic stroke with hemorrhagic conversion, seizures, hypertension, A-fib not on anticoagulation, CKD, and PEG tube 10/2024 secondary to stroke who was BIBA from home to the ED on 04/13/2025 with altered mental status, described as being aloof and not speaking, gradual in onset over the last 2 days since she has been discharged from [facility] to home. Patient's daughter and granddaughter present to provide history at bedside. According to daughter patient had been at baseline, alert, conversational, talking about her grandchildren and requesting specific foods while in the rehab. Last night had difficulty taking her meds due to non-interaction, and similarly this morning it took 1 hour to have her take meds. Patient has also been noted to have a shaking rhythmic-like movement of her whole upper body. She was seen in the ED 2 days ago when this was first noticed. At that time was finishing an antibiotic course of doxycycline for UTI. She was switched to ciprofloxacin at that time but there has been no improvement of symptoms. 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 Rolon. Last seizure was 2 weeks ago at which time she was hospitalized and found to have UTI. Review of Systems Review of systems otherwise negative except what is mentioned above. cc:: cc: Past Medical History Past Medical History Comments PMH COMMENT: Past medical history: As above Surgical history: None Allergies: Codeine, pravastatin, promethazine, Bactrim Medicines: Amio, Lipitor, Ezetimibe, Keppra, Synthroid, metoprolol tartrate, nifedipine, and number of laxatives including milk of mag, senna, Colace, Dulcolax. Family history: Family history significant for stroke, diabetes, heart disease. Social history: Denied alcohol, never use drugs, no smoking history. Exam Vital Signs Temp Pulse Resp BP Pulse Ox O2 Del Method 98.8 F 69 15 145/86 H 95 Room Air 04/13/25 12:19 04/13/25 12:19 04/13/25 12:04/13/25 12:04/13/25 12:04/13/25 12:19 Narrative Exam Physical Exam General: Elderly, cachectic female who appears aloof, staring into space. Localizes to name intermittently. HEENT: Normocephalic, atraumatic, mucous membranes moist. Heart: Regular rate and rhythm, normal S1 and S2, no murmurs. Lungs: Clear to auscultation with no wheezing or crackles. Abdomen: Soft, nondistended, nontender, positive bowel sounds. ?No guarding or rebound tenderness. Neurologic: Flaccid left leg per baseline. Left arm flexed per baseline. Jaw appears clenched, however is able to stick out tongue slightly on command. Moving right upper and lower extremity, unable to assess full strength. Eyes with small continuous left beating nystagmus. Extremities: No edema. Skin: No rash or ecchymoses. Results Labs 04/13/25 11:45 04/13/25 11:45 Labs: Short CBC 04/13/25 Range/Units 11:45 WBC 8.3 (3.6-11.0) Thou/mm3 Hgb 13.6 (12.0-16.0) g/dL Hct 38.2 (36.0-46.0) % Plt Count 389 (140-440) Thou/mm3 BMP 04/13/25 11:45 Sodium 147 H Potassium 3.8 Chloride 105 Carbon Dioxide 21.8 BUN 30 H Creatinine 1.5 H Glucose 83 Calcium 10.9 H Cardiac Enzymes 04/13/25 Range/Units 11:45 Troponin I < 0.020 (0.0-0.045) ng/mL Liver Function 04/13/25 Range/Units 11:45 Total Bilirubin 0.6 (0.3-1.2) mg/dL ALT 39 (10-49) U/L Alkaline Phosphatase 84 (46-116) U/L Albumin 3.7 (3.4-4.8) gm/dL Quality Measures Quality Measures none Advance care planning discussed with:: patient and child Medications Home Medications and Allergies Home Medications ?Medication ?Instructions ?Recorded ?Confirmed ?Type acetaminophen 325 mg tablet 650 mg feeding tube Q4H PRN pain 12/14/24 04/02/25 History (Tylenol) docusate sodium 100 mg capsule 100 mg PO Q12HR PRN constipation 12/14/24 04/02/25 History (Colace) ezetimibe 10 mg tablet 10 mg PO .qday high cholesterol 12/14/24 04/02/25 History lidocaine 5 % topical patch 1 patch topical Q24H 12/14/24 04/02/25 History menthol 0.44 %-zinc oxide 20.6 % 1 applic topical Q6HR PRN pain 12/14/24 04/02/25 History topical cream packet (CalaSoothe) sennosides 8.6 mg tablet (senna) 8.6 mg PO Q12H PRN constipation 12/14/24 04/02/25 History amiodarone 200 mg tablet 200 mg PO BID 04/02/25 04/02/25 History amlodipine 5 mg tablet 5 mg PO BID 04/02/25 04/02/25 History Allergies Allergy/AdvReac Type Severity Reaction Status Date / Time codeine Allergy Verified 04/13/25 11:01 pravastatin Allergy Verified 04/13/25 11:01 promethazine (From Phenergan) Allergy Verified 04/13/25 11:01 sulfamethoxazole (From Allergy Verified 04/13/25 11:01 Bactrim) trimethoprim (From Bactrim) Allergy Verified 04/13/25 11:01 Visit Medications Sodium Chloride (Ns) 1,000 mls @ 100 mls/hr IV .Q10H ONE Stop: 04/13/25 21:07 Last Admin: 04/13/25 12:27 Dose: 100 mls/hr Discontinued Medications Ceftriaxone Sodium 2 gm/ (Sodium Chloride) 50 mls @ 100 mls/hr IV X1 ONE Stop: 04/13/25 11:39 Last Admin: 04/13/25 13:59 Dose: 100 mls/hr Azithromycin 500 mg/ Sodium (Chloride) 250 mls @ 250 mls/hr IV X1 ONE Stop: 04/13/25 12:09 Last Infusion: 04/13/25 13:35 Dose: Infused Assessment & Plan Plan 80-year-old female with past medical history of ischemic stroke with hemorrhagic conversion, seizures, hypertension, A-fib not on anticoagulation, CKD, and PEG tube 10/2024 secondary to stroke who was BIBA from home to the ED on 04/13/2025 with altered mental status. #Altered mental status #Possible focal motor seizures #Right frontal lobe hemorrhage #History of ischemic stroke with hemorrhagic conversion Patient is presenting with a change in mental status which includes decrease in speech and general interactivity, along with twitching of the head and eyes. Patient appears to have some intermittent clenching of jaw. CT head without contrast showed hemorrhage density, 20 mm in the right frontal lobe on the current study which may be subacute. Per Neurology, area of density does appear larger than previous after reviewing CTs. Patient may be having focal seizures in the setting of new hemorrhagic lesion versus breakthrough seizures in the setting of post-stroke seizure disorder. -Discussed with in-house Neurology who recommended transfer for Neurosurgical evaluation and monitoring Patient plan of care was discussed with the attending physician, Dr. Deluca. Indy Fajardo, PGY-2 Attending Provider Attestation/Addendum I attest that I was physically present for the evaluation, physical examination, lab and imaging review of the patient with the residents. I discussed the case with the residents and agree with the findings and plans of care as documented above. Patient is an 80 years old female with past medical history of ischemic stroke with hemorrhagic conversion, seizures, hypertension, A-fib on anticoagulation, CKD and PEG tube placement following a stroke who presented to the ED with complaint of altered mental status. Patient has been having the symptoms for last 2 days. Patient is confused and unable to participate in conversation while, HPI completed with help of patient's daughter at bedside. As per the daughter, patient has not been speaking, has been staring into space, not following commands. She also states that at her baseline, she is alert and able to carry out conversation. She also had difficulty convincing her to take her medication. She is also having rhythmic shaking like movements. Patient was also taking her antibiotic course for UTI. She takes Keppra for seizure disorder and follows with neurology outpatient. On exam, patient is alert and awake but unable to answer questions. She was able to stick out her tongue, move her right left arm and leg on request. Had rhythmic movement of upper body. Unable to assess neurological status fully. Her vitals were stable except for mild hypertension. Lab results show sodium of 147, BUN/creatinine 30/1.5, corrected calcium 11.1. CT head showed hemorrhagic density, 20 mm in the right frontal lobe which may be subacute. Hospitalist service was contacted for possible admission for CVA. Discussed with neurology, with concern of focal seizures in setting of new hemorrhagic lesion, advised for transfer for neurosurgical evaluation and management. Discussed with the ED physician. Fabio Deluca MD
[2025-04-13 14:36] LABS: Bilirubin,Urine 1+ (Negative); Blood,Urine Negative (Negative); Clarity,Urine Clear (Clear/Hazy); Color,Urine Yellow (Lt Yel-Yel); Glucose, Urine Negative (Negative); Hyaline Casts,Urine < 1 /hpf (0-1); Ketones,Urine 1+ (Negative); Leukocyte Esterase,Urine Positive (Negative); Nitrite,Urine Negative (Negative); Protein,Urine Trace (Neg - Trace); RBC,Urine 3 /hpf (0-3); Specific Gravity,Urine 1.024 (1.001-1.035); Squamous Epithelial Cell,Urine 1 /hpf (0-5); Urobilinogen,Urine Negative mg/dL (0.0-1.0); WBC,Urine 12 /hpf (0-5)
[2025-04-13 15:03] LABS: Amphetamine/Methamp Scrn,U Negative (Negative); Barbiturate Screen,Urine Negative (Negative); Benzodiazepines Screen,Urine Negative (Negative); Benzoylecgonine Screen, Ur Negative (Negative); Fentanyl Screen,Urine Positive (Negative); Opiate Screen,Urine Negative (Negative); THC Screen,Urine Negative (Negative)
--- NOTE | 2025-04-13 16:21 | PC.CC ---
Addendum entered by Ana Jansen RN 04/13/25 17:16: 1657- [facility] called back, their Surgeon states no neuro sx intervention necessary. 9-Spoke to Dr. Thomas gave info from [facility], cancelled transfer Addendum entered by Ana Jansen RN 04/13/25 16:52: 1637-Packet sent to [facility], called [facility], basic info given, transferred to ED doctor. Addendum entered by Ana Jansen RN 04/13/25 16:38: 1632- Contact [facility], requested images pushed, sent through [facility], ED doctor wants to confirm with [facility], they will call back Original Note: 1616 received transfer order images and packet sent to [facility]
--- NOTE | 2025-04-13 16:46 | PD.HHHP ---
Documentation for date of: 04/13/25 HPI - Hospitalist History of Present Illness History of present illness: Patient is an 80 years old female with past medical history of ischemic stroke with hemorrhagic conversion, seizures, hypertension, A-fib on anticoagulation, CKD and PEG tube placement following a stroke who presented to the ED with complaint of altered mental status. Patient has been having the symptoms for last 2 days. Patient is confused and unable to participate in conversation while, HPI completed with help of patient's daughter at bedside. As per the daughter, patient has not been speaking, has been staring into space, not following commands. She also states that at her baseline, she is alert and able to carry out conversation. She also had difficulty convincing her to take her medication. She is also having rhythmic shaking like movements. Patient was also taking her antibiotic course for UTI. She takes Keppra for seizure disorder and follows with neurology outpatient. On exam, patient is alert and awake but unable to answer questions. She was able to stick out her tongue, move her right left arm and leg on request. Had rhythmic movement of upper body. Unable to assess neurological status fully. Her vitals were stable except for mild hypertension. Lab results show sodium of 147, BUN/creatinine 30/1.5, corrected calcium 11.1. CT head showed hemorrhagic density, 20 mm in the right frontal lobe which may be subacute. Hospital service was contacted for admission for hemorrhagic CVA and acute encephalopathy. Initial plan was to transfer patient for neurosurgery service as recommended by neurology. But after discussion with family, family stated they do not want any neurosurgical intervention done. After examination of the patient and review of the clinical data I feel that this patient needs admission to the hospital for further treatment/evaluation of acute encephalopathy, possible focal seizure and hemorrhagic CVA. Past medical history: As above Surgical history: None Allergies: Codeine, pravastatin, promethazine, Bactrim Family history: stroke, diabetes, heart disease. Social history: Denied alcohol, never use drugs, no smoking history. Meds Home Medications and Allergies Home Medications ?Medication ?Instructions ?Recorded ?Confirmed ?Type acetaminophen 325 mg tablet 650 mg feeding tube Q4H PRN pain 12/14/24 04/02/25 History (Tylenol) docusate sodium 100 mg capsule 100 mg PO Q12HR PRN constipation 12/14/24 04/02/25 History (Colace) ezetimibe 10 mg tablet 10 mg PO .qday high cholesterol 12/14/24 04/02/25 History lidocaine 5 % topical patch 1 patch topical Q24H 12/14/24 04/02/25 History menthol 0.44 %-zinc oxide 20.6 % 1 applic topical Q6HR PRN pain 12/14/24 04/02/25 History topical cream packet (CalaSoothe) sennosides 8.6 mg tablet (senna) 8.6 mg PO Q12H PRN constipation 12/14/24 04/02/25 History amiodarone 200 mg tablet 200 mg PO BID 04/02/25 04/02/25 History amlodipine 5 mg tablet 5 mg PO BID 04/02/25 04/02/25 History Allergies Allergy/AdvReac Type Severity Reaction Status Date / Time codeine Allergy Verified 04/13/25 11:01 pravastatin Allergy Verified 04/13/25 11:01 promethazine (From Phenergan) Allergy Verified 04/13/25 11:01 sulfamethoxazole (From Allergy Verified 04/13/25 11:01 Bactrim) trimethoprim (From Bactrim) Allergy Verified 04/13/25 11:01 Exam Vital Signs Temp Pulse Resp BP Pulse Ox O2 Del Method 98.7 F 65 16 142/65 H 95 Room Air 04/13/25 14:20 04/13/25 14:20 04/13/25 14:20 04/13/25 14:20 04/13/25 14:20 04/13/25 14:20 Narrative General: Elderly, cachectic female who appears aloof, staring into space. Unable to answer questions. Appears comfortable HEENT: Normocephalic, atraumatic, mucous membranes moist. Eyes with small continuous left beating nystagmus. Heart: Regular rate and rhythm, normal S1 and S2, no murmurs. Lungs: Clear to auscultation with no wheezing or crackles. Abdomen: Soft, nondistended, nontender, positive bowel sounds. Neurologic: Flaccid left leg per baseline. Left arm flexed per baseline. Able to follow some simple commands, need to repeat multiple times before following command, able to move her right upper and lower extremity, unable to evaluate fully Skin/limbs: No rashes, no edema Results - Hospitalist Labs Diagrams: 04/13/25 11:45 04/13/25 11:45 Labs: Short CBC 04/13/25 Range/Units 11:45 WBC 8.3 (3.6-11.0) Thou/mm3 Hgb 13.6 (12.0-16.0) g/dL Hct 38.2 (36.0-46.0) % Plt Count 389 (140-440) Thou/mm3 BMP 04/13/25 11:45 Sodium 147 H Potassium 3.8 Chloride 105 Carbon Dioxide 21.8 BUN 30 H Creatinine 1.5 H Glucose 83 Calcium 10.9 H Cardiac Enzymes 04/13/25 Range/Units 11:45 Troponin I < 0.020 (0.0-0.045) ng/mL Liver Function 04/13/25 Range/Units 11:45 Total Bilirubin 0.6 (0.3-1.2) mg/dL ALT 39 (10-49) U/L Alkaline Phosphatase 84 (46-116) U/L Albumin 3.7 (3.4-4.8) gm/dL Urine 04/13/25 Range/Units 14:06 Urine Color Yellow (Lt Yel-Yel) Urine Clarity Clear (Clear/Hazy) Urine pH 5.0 (5.0-7.0) Ur Specific [place] 1.024 (1.001-1.035) Urine Protein Trace (Neg - Trace) Urine Glucose (UA) Negative (Negative) Assessment & Plan -Hospitalist Additional Assessment 80-year-old female with past medical history of ischemic stroke with hemorrhagic conversion, seizures, hypertension, A-fib not on anticoagulation, CKD, and PEG tube 10/2024 secondary to stroke who was BIBA from home to the ED on 04/13/2025 with altered mental status. 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 #Right frontal lobe hemorrhage #History of ischemic stroke with hemorrhagic conversion Patient presented with altered mental status for 2 days, has been having staring episode with upper body shaking movements, unable to follow command appropriately CT head showed hemorrhagic density, 20 mm in the right frontal lobe Family denied neurosurgical intervention We will avoid antiplatelet and anticoagulation in setting of intracranial hemorrhage Resumed Ezetimibe We will obtain speech therapy, physical therapy Neurology following, appreciate recommendations Ordered EEG, brain MRI. We will continue Keppra IV, Ativan as needed for breakthrough seizures Will keep her n.p.o. until speech evaluation Head of bed elevation, frequent neurochecks, seizure precautions Will plan for head CT without contrast after 24 hours #Acute kidney injury Likely prerenal in setting of decreased oral intake Patient has not have good oral intake for last couple days BUN/creatinine of 30/1.5 today, baseline appears to be around 1 Will start her on gentle IV hydration, follow-up BMP #Hypovolemic hyponatremia Sodium level 147 today Patient has been started on gentle IV hydration, we will follow-up with BMP tomorrow #Hypercalcemia Calcium level 11.1 today, likely secondary to hemoconcentration Started IV hydration #Hypertension Holding antihypertensive to allow permissive hypertension #History of A-fib Currently sinus rhythm, heart rate in 60s Resumed home amiodarone We will monitor closely #History of hypothyroidism Will resume levothyroxine Will obtain TSH in a.m. CODE STATUS: Full code DVT prophylaxis: SCDs Disposition: Telemetry Diet: N.p.o. Fabio Deluca MD Quality Measures Quality Measures none Advance care planning discussed with:: child
[2025-04-13] MEDS: RINGERS LACTATED 1000 ML 1,000 ML 75 ML IV (17:23)
[2025-04-13] MEDS: levETIRAcetam INJ 100 MG/ML VIAL 5ML 1000 MG IVP (17:24)
--- NOTE | 2025-04-13 18:23 | PC.NURSE ---
Report given to Ligia UMAÑA via phone.
[2025-04-13] MEDS: AMIODARONE HCL 200 MG TABLET GT (21:23)
--- NOTE | 2025-04-13 21:42 | PC.NURSE ---
SYEDA, DAUGHTER TO OBTAIN UPDATED MEDICATION LIST. UNABLE TO PROVIDE INFORMATION AT THIS TIME. STATES SHE WILL BRING LIST TOMORROW.
--- NOTE | 2025-04-13 21:45 | PC.NURSE ---
DR. HUMPHRIES NOTIFIED OF MRI RESULTS. STATES HE WILL HAVE TO REVIEW CHART IF FURTHER ORDERS NEEDED.
--- NOTE | 2025-04-13 23:40 | VVPN_ITS ---
Telemedicine visit statement This visit was conducted with the use of interactive audio and video telecommunications system that permits real time communication between the patient and the provider. Patient's verbal consent for virtual visit was obtained on 04/13/25 at 2340. Documentation for date of: 04/13/25 Subjective Subjective Interval history: Patient is in telemetry. Continues to have left dense hemiplegia and focal sz in the left UE. Got admitted with pneumonia and UTI. CT head showed a newly noticeable hge in the rgiht frontal area. Virtual exam Vital Signs Temp Pulse Resp BP Pulse Ox O2 Del Method 97.7 F 69 15 149/79 H 95 Room Air 04/13/25 20:00 04/13/25 21:23 04/13/25 20:00 04/13/25 21:23 04/13/25 20:00 04/13/25 20:00 Objective Labs 04/13/25 11:45 04/13/25 11:45 Labs: Laboratory Results - last 24 hr 04/13/25 04/13/25 11:45 14:06 WBC 8.3 RBC 4.39 Hgb 13.6 Hct 38.2 MCV 87 MCH 31.0 MCHC 35.6 RDW Std Deviation 42.6 Plt Count 389 Neut % (Auto) 69 Lymph % (Auto) 20 [place] % (Auto) 9 Eos % (Auto) 0 Baso % (Auto) 1 Neut # (Auto) 5.7 Lymph # (Auto) 1.7 [place] # (Auto) 0.8 Eos # (Auto) 0.0 Baso # (Auto) 0.1 Immature Gran # (Auto) 0.02 H Absolute Nucleated RBC 0.00 Immature Gran % 0 Nucleated RBC % 0 PT 12.9 H INR 1.2 APTT 20.9 L Sodium 147 H Potassium 3.8 Chloride 105 Carbon Dioxide 21.8 Anion Gap 20 H BUN 30 H Creatinine 1.5 H Estim Creat Clear Calc Not Performed. eGFR 35 L BUN/Creatinine Ratio 20 Glucose 83 Calculated Osmolality 297 H Lactic Acid 1.9 Calcium 10.9 H Corrected Calcium 11.1 H Total Bilirubin 0.6 ALT 39 Alkaline Phosphatase 84 Troponin I < 0.020 Total Protein 6.9 Albumin 3.7 Globulin 3.2 Albumin/Globulin Ratio 1.2 Ur Collection Type Clean Catch Urine Color Yellow Urine Clarity Clear Urine pH 5.0 Ur Specific [place] 1.024 Urine Protein Trace Urine Glucose (UA) Negative Urine Ketones 1+ A Urine Blood Negative Urine Nitrite Negative Urine Bilirubin 1+ A Urine Urobilinogen (Auto) Negative Ur Leukocyte Esterase Positive Urine RBC 3 Urine WBC 12 H Ur Squamous Epith Cells 1 Urine Bacteria None Hyaline Casts < 1 Salicylates < 3.0 Urine Opiates Screen Negative Urine Fentanyl Screen Positive A Acetaminophen < 2.0 L Ur Barbiturates Screen Negative U Amphetamin/Meth Scrn Negative U Benzodiazepines Scrn Negative U Cocaine Metab Screen Negative U Marijuana (THC) Screen Negative Assessment & Plan Assessment 1) 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 Will hold off on antiplatelet/anticoagulant therapy for at least 2 months because of the recent intracerebral hemorrhage event, seen more prominent from today's imaging study As the daughter decided against any surgical intervention, we will keep her in out hospital and manage conservatively, Will do a repeat CT in 48 hours. (2) altered mental status from focal seizures: continue with the Keppra 1000 mg twice a day. Will continue to monitor her closely (3) Hypertension: Continue with aggressive blood pressure management 4) Pneumonia: on IV antibiotics: Rocephin and zithromax
[2025-04-14] VITALS (12 sets, daily range): BP systolic 129–143; BP diastolic 70–96; PULSE 60–72; RESP 11–97; TEMP 36.2–36.7; O2SAT 91–95; BMI 23.0
--- NOTE | 2025-04-14 03:39 | PC.RT ---
pt unable to provide sputum sample at this time, cup left at bedside RN aware.
[2025-04-14] MEDS: LEVOTHYROXINE SODIUM 100 MCG TABLET GT (05:14)
[2025-04-14 05:53] LABS: Basophils # (Auto) 0.1 Thou/mm3 (0.0-0.2); Basophils % (Auto) 2 % (0-2.5); Eosinophils # (Auto) 0.2 Thou/mm3 (0.0-0.5); Eosinophils % (Auto) 3 % (0-10); Hematocrit 32.8 % (36.0-46.0); Hemoglobin 11.4 g/dL (12.0-16.0); Immature Granulocytes % (Auto) 0 % (0-0); Immature Granulocytes Auto 0.02 Thou/mm3 (0.00-0.00); Lymphocytes # (Auto) 1.1 Thou/mm3 (1.0-4.8); Lymphocytes % (Auto) 16 % (10-50); Mean Corpuscular HGB Conc 34.8 g/dl (31.0-37.0); Mean Corpuscular Hemoglobin 30.9 pg (25.0-35.0); Mean Corpuscular Volume 89 fL (80-100); Monocytes # (Auto) 0.8 Thou/mm3 (0.0-0.8); Monocytes % (Auto) 11 % (0-12); Neutrophils # (Auto) 4.8 Thou/mm3 (1.8-7.7); Neutrophils % (Auto) 69 % (37-80); Nucleated Red Blood Cell % 0 /100 WBC (0); Platelet Count 299 Thou/mm3 (140-440); RDW Standard Deviation 43.4 fL (36.4-46.3); Red Blood Count 3.69 Miln/mm3 (4.00-5.20)
[2025-04-14 06:49] LABS: Anion Gap 17 (7-16); BUN/Creatinine Ratio 22 Ratio (12-20); Blood Urea Nitrogen 24 mg/dL (9-23); Calcium 9.8 mg/dL (8.3-10.6); Carbon Dioxide 23.3 mMol/L (20.0-31.0); Chloride 110 mMol/L (98-107); Creatinine (Component) 1.1 mg/dL (0.6-1.3); Estimated Creatinine Clearance 33.7 mL/min (>60); Free T4 (Free Thyroxine) 1.79 ng/dL (0.89-1.76); Glucose 79 mg/dL (74-106); Osmolality,Calculated 301 (275-295); Phosphorous 2.6 mg/dL (2.4-5.1); Potassium 3.2 mMol/L (3.4-5.1); Sodium 150 mMol/L (136-145); Thyroid Stimulating Hormone 3.27 uIU/mL (0.55-4.78); eGFR 51 See Note
[2025-04-14 06:59] LABS: Magnesium 0.8 mg/dL (1.6-2.6)
[2025-04-14] MEDS: Magnesium Sulfate 2 GM Ivpb 2 GM/50 ML BAG IV (07:25)
[2025-04-14] MEDS: amLODIPine BESYLATE 5 MG TABLET GT ×2 (09:39→20:46)
[2025-04-14] MEDS: AMIODARONE HCL 200 MG TABLET GT ×2 (09:39→20:47)
[2025-04-14] MEDS: EZETIMIBE 10 MG TABLET PO (09:39)
[2025-04-14] MEDS: Magnesium Sulfate 4 GM Ivpb 4 GM/50 ML BAG IV (09:40)
[2025-04-14] MEDS: POTASSIUM CHL 10 mEq IVPB 10 MEQ/100 ML BAG 100 MEQ IV ×4 (09:40→13:23)
[2025-04-14] MEDS: levETIRAcetam INJ 100 MG/ML VIAL 5ML 1000 MG IVP ×2 (09:40→20:46)
[2025-04-14] MEDS: DEXTROSE 5%-WATER 1,000 ML 75 ML IV ×2 (09:41→22:55)
--- NOTE | 2025-04-14 09:58 | PC.DIETICIAN ---
Nutrition prescription Jevity 1.2 at 25 ml/hr via PEG tube by pump. Advance 10 ml every 8 hrs to goal rate of 55 ml/hr x 22 hrs. If no IV fluids, water flushes of 40 ml/hr x 22 hrs (or per MD). -Hold TF for one hour before and after levothyroxine administration-
--- NOTE | 2025-04-14 11:36 | ESPR_ITS ---
<Statement entered by Destinee Patel MD - 04/23/25 14:58> I reviewed above note and agree with findings and plans. I have also personally examined the patient with medicine team and went over assessment and plan with medical team including sourcing internship and resident physician. Documentation for date of: 04/14/25 Subjective Subjective Interval history: No acute events overnight. Patient did not have any new seizure-like activity overnight.?Patient seen and examined at bedside this AM.?She again appears non- interactive, but seemed to make eye contact. Did not appear to have any more rhythmic like movements. Daughter at bedside. MRI showed findings are consistent with acute infarcts in the right posterior parietal, right occipital, and right temporal lobes. Results were shared with daughter, Cat. Patient was evaluated by speech and was unable to safely participate in oral trials, was not passed for PO intake. Recommendation was to continue with PEG tube feedings. Tube feedings were started per specimen processor recommendations, will increase q8h until goal rate. Discussion held with daughter at bedside about goals of care, possibility of bringing up hospice as option. Daughter appeared unready to start discussing hospice, states she would like to continue with full treatment, and see how patient progresses. She reports understanding of the patient's current condition and prognosis, as well as possibility of recurrent strokes, especially in the setting of underlying paroxysmal afib. Review of systems unable to be obtained due to mental status. Exam Vital Signs Temp Pulse Resp BP Pulse Ox O2 Del Method 98.0 F 70 17 141/78 H 94 L Room Air 04/14/25 08:00 04/14/25 09:39 04/14/25 08:00 04/14/25 09:39 04/14/25 08:00 04/14/25 08:00 Narrative Exam Physical Exam General: Elderly, cachectic female who appears aloof, staring into space. Localizes to name intermittently. HEENT: Normocephalic, atraumatic, mucous membranes moist. Heart: Regular rate and rhythm, normal S1 and S2, no murmurs. Lungs: Clear to auscultation with no wheezing or crackles. Abdomen: Soft, nondistended, nontender, positive bowel sounds. ?No guarding or rebound tenderness. Neurologic: Flaccid left leg per baseline. Left arm flexed per baseline. Moving right upper and lower extremity, unable to assess full strength. Follows some commands. Extremities: No edema. Skin: No rash or ecchymoses. Objective Labs 04/15/25 04:32 04/15/25 04:32 Labs: Laboratory Results - last 24 hr 04/13/25 04/13/25 04/14/25 11:45 14:06 04:48 WBC 8.3 7.0 RBC 4.39 3.69 L Hgb 13.6 11.4 L D Hct 38.2 32.8 L MCV 87 89 MCH 31.0 30.9 MCHC 35.6 34.8 RDW Std Deviation 42.6 43.4 Plt Count 389 299 D Neut % (Auto) 69 69 Lymph % (Auto) 20 16 [place] % (Auto) 9 11 Eos % (Auto) 0 3 Baso % (Auto) 1 2 Neut # (Auto) 5.7 4.8 Lymph # (Auto) 1.7 1.1 [place] # (Auto) 0.8 0.8 Eos # (Auto) 0.0 0.2 Baso # (Auto) 0.1 0.1 Immature Gran # (Auto) 0.02 H 0.02 H Absolute Nucleated RBC 0.00 0.00 Immature Gran % 0 0 Nucleated RBC % 0 0 PT 12.9 H INR 1.2 APTT 20.9 L Sodium 147 H 150 H Potassium 3.8 3.2 L D Chloride 105 110 H Carbon Dioxide 21.8 23.3 Anion Gap 20 H 17 H BUN 30 H 24 H Creatinine 1.5 H 1.1 Estim Creat Clear Calc Not Performed. 33.7 L eGFR 35 L 51 L BUN/Creatinine Ratio 20 22 H Glucose 83 79 Calculated Osmolality 297 H 301 H Lactic Acid 1.9 Calcium 10.9 H 9.8 Corrected Calcium 11.1 H Phosphorus 2.6 Magnesium 0.8 L* Total Bilirubin 0.6 ALT 39 Alkaline Phosphatase 84 Troponin I < 0.020 Total Protein 6.9 Albumin 3.7 Globulin 3.2 Albumin/Globulin Ratio 1.2 TSH 3.27 D Free T4 1.79 H Ur Collection Type Clean Catch Urine Color Yellow Urine Clarity Clear Urine pH 5.0 Ur Specific [place] 1.024 Urine Protein Trace Urine Glucose (UA) Negative Urine Ketones 1+ A Urine Blood Negative Urine Nitrite Negative Urine Bilirubin 1+ A Urine Urobilinogen (Auto) Negative Ur Leukocyte Esterase Positive Urine RBC 3 Urine WBC 12 H Ur Squamous Epith Cells 1 Urine Bacteria None Hyaline Casts < 1 Salicylates < 3.0 Urine Opiates Screen Negative Urine Fentanyl Screen Positive A Acetaminophen < 2.0 L Ur Barbiturates Screen Negative U Amphetamin/Meth Scrn Negative U Benzodiazepines Scrn Negative U Cocaine Metab Screen Negative U Marijuana (THC) Screen Negative Quality Measures Quality Measures none Advance care planning discussed with:: patient Assessment & Plan Assessment Current Active Medications: Generic Name Dose Route Start Last Admin Trade Name Freq PRN Reason Stop Dose Admin Acetaminophen 650 mg 04/13/25 16:44 Acetaminophen 325 Mg Tablet PO 05/13/25 16:43 Q6H PRN Fever >100.4 or Pain 1-10 Amiodarone HCl 200 mg 04/13/25 21:00 04/14/25 09:39 Amiodarone Hcl 200 Mg Tablet GT 05/13/25 20:59 200 mg BID JOHNY Administration Amlodipine Besylate 5 mg 04/14/25 21:00 Amlodipine Besylate 5 Mg Tablet GT 05/14/25 20:59 BID JOHNY Ezetimibe 10 mg 04/14/25 09:00 04/14/25 09:39 Ezetimibe 10 Mg Tablet PO 05/14/25 08:59 10 mg QDAY JOHNY Administration Hydralazine HCl 10 mg 04/14/25 08:14 Hydralazine Inj 20 Mg/Ml Vial IVP 05/14/25 08:13 Q8H PRN SBP > 150 Potassium Chloride 10 meq in 100 mls @ 100 mls/hr 04/14/25 07:57 04/14/25 10:45 Kcl Ivpb IV 04/14/25 11:56 100 mls/hr Q1H JOHNY Administration Magnesium Sulfate 4 gm in 50 mls @ 12.5 mls/hr 04/14/25 09:30 04/14/25 09:40 Magnesium Sulfate Ivpb IV 04/14/25 13:29 12.5 mls/hr X1 ONE Administration Dextrose 1,000 mls @ 75 mls/hr 04/14/25 08:15 04/14/25 09:41 D5w IV 05/14/25 08:14 75 mls/hr .[id number] JOHNY Administration Levetiracetam 1,000 mg 04/13/25 16:55 04/14/25 09:40 Levetiracetam Inj 100 Mg/Ml Vial 5ml IVP 05/13/25 16:54 1,000 mg Q12HR JOHNY Administration Levothyroxine Sodium 100 mcg 04/14/25 06:00 04/14/25 05:14 Levothyroxine Sodium 100 Mcg Tablet GT 05/14/25 05:59 100 mcg ACBR JOHNY Administration Lorazepam 0.5 mg 04/13/25 16:52 Lorazepam 2 Mg/Ml Vial IVP 04/18/25 16:51 X1 PRN SEIZURES Ondansetron HCl 4 mg 04/13/25 16:44 Ondansetron Inj 2 Mg/Ml Inj 2 Ml IVP 05/13/25 16:43 Q6H PRN NAUSEA OR VOMITING Protocol Plan 80-year-old female with past medical history of ischemic stroke with hemorrhagic conversion, seizures, hypertension, A-fib not on anticoagulation, CKD, and PEG tube 10/2024 secondary to stroke who was BIBA from home to the ED on 04/13/2025 with altered mental status. 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 #Right frontal lobe hemorrhage #History of ischemic stroke with hemorrhagic conversion Patient presented with altered mental status for 2 days, has been having staring episode with upper body shaking movements, unable to follow commands appropriately CXR reading by radiologist reported significant pneumonia left base however on our read there is no pneumonia present and clinically the patient does not exhibit any signs or symptoms of pneumonia UA is positive for leukocyte esterase however few WBCs and no bacteria are present CT head showed hemorrhagic density, 20 mm in the right frontal lobe Family denied neurosurgical intervention We will avoid antiplatelet and anticoagulation in setting of intracranial hemorrhage BP goal SBP<140 Speech therapy did not pass patient for swallow, will start tube feedings PT will re-evaluate when appropriate -Continue home Ezetimibe -Neurology following, appreciate recommendations -Pending EEG -Continue Keppra IV, Ativan as needed for breakthrough seizures -Head of bed elevation -Frequent neurochecks -Seizure precautions -Will plan for head CT without contrast after 48 hours, will order 11:30 am on 04/15/2025 -Blood cultures pending #Acute kidney injury Likely prerenal in setting of decreased oral intake. BUN/creatinine of 30/1.5 on admission, baseline appears to be around 1 -Changed LR to D5W IV fluids at 75 ml/hr #Electrolyte imbalance #Hypovolemic hyperosmoler hypernatremia #Hypokalemia #Hypomagnesemia #Hypercalcemia Sodium level 147 on admission, uptrended to 150. Very likely in the setting of lack of intake. -Changed LR to D5W IV fluids at 75 ml/hr -Repleted K with 40 mEq IV -Repleted Mag with 4 g IV -Repeat renal panel at 2 pm #Hypertension Goal SBP <140 in the setting of hemorrhagic stroke -Continue home amlodipine 5 mg BID -Hydralazine 10 mg IV prn if SBP >150 #History of A-fib Currently sinus rhythm, heart rate in 60s -Continuous Telemetry -Continue home amiodarone 200 mg BID #History of hypothyroidism TSH normal -Continue levothyroxine CODE STATUS: Full code DVT prophylaxis: SCDs Disposition: Telemetry Diet: NPO Patient plan of care was discussed with the attending physician, Dr. Patel. Indy Fajardo, PGY-2
--- NOTE | 2025-04-14 11:54 | PC.PT ---
Patient was approached at 1145. Daughter at bedside. Based on the last encounter by this PT on my initial evaluation on January 2025 that the daughter verbalizes that the reason patient keeps coming back to the hospital is because of aggressive Physical therapy. Based on the last conversation that the daughter informed this PT to not push the patient and let her do her own pace. This PT confirmed to the daughter today if it is still the same disposition as last time. Today aRN mt the time of encounter, patient is sleeping. As per daughter, to let the patient rest and not to do therapy today. This PT informed the daughter that if they are ready to do therapy to let the nurse know. Will cancel PT evaluation as of this time, and will just request another referral whenever they are ready. Daughter verbalized understanding. RN made aware.
[2025-04-14 14:05] LABS: Albumin, Serum 3.1 gm/dL (3.4-4.8); Anion Gap 12 (7-16); BUN/Creatinine Ratio 17 Ratio (12-20); Blood Urea Nitrogen 19 mg/dL (9-23); Calcium 9.8 mg/dL (8.3-10.6); Calcium (Corrected) 10.5 mg/dL (8.5-10.1); Carbon Dioxide 23.7 mMol/L (20.0-31.0); Chloride 107 mMol/L (98-107); Creatinine (Component) 1.1 mg/dL (0.6-1.3); Estimated Creatinine Clearance 32.3 mL/min (>60); Glucose 103 mg/dL (74-106); Magnesium 3.3 mg/dL (1.6-2.6); Osmolality,Calculated 287 (275-295); Phosphorous 2.5 mg/dL (2.4-5.1); Potassium 3.8 mMol/L (3.4-5.1); Sodium 143 mMol/L (136-145); eGFR 51 See Note
--- NOTE | 2025-04-14 15:52 | PC.SS ---
Nain Note: Urology recommendations pending. EEG pending. Goals of care discussion to be scheduled.
--- NOTE | 2025-04-14 15:53 | PC.SS ---
[employer]AT[employer] OPERATOR [employer]TACT [employer] conducted bedside visit with patient and daughter, Cat. [employer] OPER[employer] discussed medical team request for goals of care discussion to review prognosis, treatment plan and code status. Daughter to be available at bedside for discussion. LAT[employer] OPER[employer] contacted medical team. Resident confirmed in route to conduct goals of care meeting.
--- NOTE | 2025-04-14 23:55 | ESPR_ITS ---
Documentation for date of: 04/14/25 Subjective Subjective Interval history: Patient was seen in telemetry today at the bedside. Continue to have dense left hemiplegia with spasticity and contracture. She moves right upper and lower extremities well. She has not had any seizures since admission. Exam - Neurology Vital Signs Temp Pulse Resp BP Pulse Ox O2 Del Method 97.4 F 67 18 131/96 H 95 Room Air 04/14/25 20:00 04/14/25 20:47 04/14/25 20:06 04/14/25 20:47 04/14/25 20:00 04/14/25 20:00 Narrative Exam GENERAL APPEARANCE: Well hydrated, well-nourished , in no acute distress HEENT: Normocephalic, atraumatic, extraocular movements intact. Pupils: Equal reacting to light NECK: Supple, no JVD or bruits. CARDIOVASULAR: Heart: S1, S2 heard, regular without S3-S4 or murmur no rubs or gallops. LUNGS/CHEST: Clear to auscultation bilaterally. No rails, rhonchi, or wheezing. Normal inspection. ABDOMEN: Soft, nontender, with normal bowel sounds. No pulsatile masses. No rebound, rigidity, or guarding. Normal inspection and palpation. EXTREMITIES: Normal inspection and palpation. No edema, clubbing or cyanosis. SKIN: Warm and dry without rashes. Normal inspection. MUSCULOSKELETAL: No cervical, thoracic, lumbar or midline bony tenderness. Normal inspection. NEURO: Patient is much more awake, alert, responding to questions readily, Continue to have dense left hemiplegia with spasticity and contracture noted. Moves right upper and lower extremities. PSYCHIATRIC: Limited Objective Labs 04/16/25 04:25 04/16/25 04:25 Labs: Laboratory Results - last 24 hr 04/14/25 04/14/25 04:48 13:15 WBC 7.0 RBC 3.69 L Hgb 11.4 L D Hct 32.8 L MCV 89 MCH 30.9 MCHC 34.8 RDW Std Deviation 43.4 Plt Count 299 D Neut % (Auto) 69 Lymph % (Auto) 16 [place] % (Auto) 11 Eos % (Auto) 3 Baso % (Auto) 2 Neut # (Auto) 4.8 Lymph # (Auto) 1.1 [place] # (Auto) 0.8 Eos # (Auto) 0.2 Baso # (Auto) 0.1 Immature Gran # (Auto) 0.02 H Absolute Nucleated RBC 0.00 Immature Gran % 0 Nucleated RBC % 0 Sodium 150 H 143 Potassium 3.2 L D 3.8 D Chloride 110 H 107 Carbon Dioxide 23.3 23.7 Anion Gap 17 H 12 BUN 24 H 19 Creatinine 1.1 1.1 Estim Creat Clear Calc 33.7 L 32.3 L eGFR 51 L 51 L BUN/Creatinine Ratio 22 H 17 Glucose 79 103 Calculated Osmolality 301 H 287 Calcium 9.8 9.8 Corrected Calcium 10.5 H Phosphorus 2.6 2.5 Magnesium 0.8 L* 3.3 H Albumin 3.1 L D TSH 3.27 D Free T4 1.79 H Assessment & Plan Additional Assessment & Plan Additional Plan: 1) Recurrent CVA: continue to be hemiplegic on the left Continue with range of motion exercises on the left upper and lower extremities. Will hold off on antiplatelet/anticoagulant therapy because of intracerebral hemorrhage event. (2) altered mental status with focal seizures Continue with Keppra, seizure precautions. Continue with Ativan. FU with repeat EEG (3) Hypertension: Continue with aggressive blood pressure management
[2025-04-15] VITALS (9 sets, daily range): BP systolic 113–141; BP diastolic 69–79; PULSE 59–90; RESP 12–96; TEMP 36.1–36.8; O2SAT 94–99; BMI 22.6
--- NOTE | 2025-04-15 02:02 | PC.RT ---
Pt is on cont 24hr EEG. Pt is unable to produce sputum for gram stain sample at this time. Pt is very weak and has weak cough.
[2025-04-15] MEDS: LEVOTHYROXINE SODIUM 100 MCG TABLET GT (05:13)
[2025-04-15 06:02] LABS: Basophils # (Auto) 0.1 Thou/mm3 (0.0-0.2); Basophils % (Auto) 1 % (0-2.5); Eosinophils # (Auto) 0.2 Thou/mm3 (0.0-0.5); Eosinophils % (Auto) 2 % (0-10); Hematocrit 32.4 % (36.0-46.0); Hemoglobin 11.5 g/dL (12.0-16.0); Immature Granulocytes % (Auto) 0 % (0-0); Immature Granulocytes Auto 0.02 Thou/mm3 (0.00-0.00); Lymphocytes % (Auto) 13 % (10-50); Mean Corpuscular HGB Conc 35.5 g/dl (31.0-37.0); Mean Corpuscular Hemoglobin 31.1 pg (25.0-35.0); Mean Corpuscular Volume 88 fL (80-100); Monocytes # (Auto) 0.7 Thou/mm3 (0.0-0.8); Monocytes % (Auto) 9 % (0-12); Neutrophils # (Auto) 5.6 Thou/mm3 (1.8-7.7); Neutrophils % (Auto) 74 % (37-80); Nucleated Red Blood Cell % 0 /100 WBC (0); Platelet Count 337 Thou/mm3 (140-440); RDW Standard Deviation 42.3 fL (36.4-46.3); White Blood Count 7.5 Thou/mm3 (3.6-11.0)
[2025-04-15 06:24] LABS: Anion Gap 14 (7-16); BUN/Creatinine Ratio 17 Ratio (12-20); Blood Urea Nitrogen 19 mg/dL (9-23); Calcium 9.3 mg/dL (8.3-10.6); Carbon Dioxide 24.2 mMol/L (20.0-31.0); Chloride 103 mMol/L (98-107); Creatinine (Component) 1.1 mg/dL (0.6-1.3); Estimated Creatinine Clearance 32.3 mL/min (>60); Glucose 183 mg/dL (74-106); Magnesium 1.8 mg/dL (1.6-2.6); Osmolality,Calculated 288 (275-295); Phosphorous 1.6 mg/dL (2.4-5.1); Potassium 3.4 mMol/L (3.4-5.1); Sodium 141 mMol/L (136-145); eGFR 51 See Note
[2025-04-15] MEDS: POTASSIUM PHOS 22.5 MMOL in SODIUM CHLORIDE 0.9% 500 ML 500 ML 82.778 MMOL IV (09:49)
[2025-04-15] MEDS: levETIRAcetam INJ 100 MG/ML VIAL 5ML 1000 MG IVP ×2 (09:49→20:57)
[2025-04-15] MEDS: AMIODARONE HCL 200 MG TABLET GT ×2 (09:50→20:57)
[2025-04-15] MEDS: ONDANSETRON INJ 2 MG/ML INJ 2 ML 4 MG IVP (09:50)
[2025-04-15] MEDS: EZETIMIBE 10 MG TABLET PO (09:50)
[2025-04-15] MEDS: amLODIPine BESYLATE 5 MG TABLET GT ×2 (09:50→20:57)
--- NOTE | 2025-04-15 11:30 | XR_ITS ---
Examination: CT brain head without contrast. 2-D sagittal coronal reconstructions Date and time of exam:April 15, 2025 1631 hours Comparison April 13, 2025 INDICATIONS: Seizures, history hemorrhagic strokes, hyperdensity in the right frontal lobe on CT brain scan April 13, 2025 CTDI: vol (mGy):43.4 DLP: (mGycm):850 Technique: Multiple CT axial sections of the brain have been obtained, 5 mm slice thickness. Contrast has not been administered. 2-D sagittal, coronal reconstructions have been obtained Low dose protocols were performed. One or more of the following dose reduction techniques were used; automated exposure control, adjustment of the mA and/or KV according to patient size, use of iterative reconstruction technique. Findings: Again noted hyperdensity in the right frontal lobe which appears slightly less prominent compared to April 13, 2025 Chronic changes or old infarcts in right middle cerebral artery distribution right basal ganglia again noted No new area of hemorrhage No mass effect upon the ventricular system IMPRESSION: Hemorrhage density appears slightly less prominent on the current study Consider MRI brain post contrast follow-up to exclude enhancing tumor in the right frontal lobe
--- NOTE | 2025-04-15 11:52 | ESPR_ITS ---
<Statement entered by Destinee Patel MD - 04/23/25 17:27> I reviewed above note and agree with findings and plans. I have also personally examined the patient with medicine team and went over assessment and plan with medical team including summer intern and resident physician. Documentation for date of: 04/15/25 Subjective Subjective Interval history: No acute events overnight.?No notable seizure-like activities. Patient seen and examined at bedside this AM.?Daughter at bedside stated that patient seemed a bit more awake overnight, expressing discomfort and appeared to be looking at EEG machine. She was able to verbalize some short phrases understood by daughter. Labs and vitals were reviewed.?BP well controlled with SBP maintaining <140. Electrolytes are corrected therefore IV fluids will be stopped and free water flushes were started at 40 ml/hr x 22 hr. Phosphorus low at 1.6 so was replaced with Kphos. Pending EEG which will be completed around 3 pm. Following this repeat CT without contrast will be done, [address] to assess for any hemorrhagic changes. Review of systems otherwise negative except what is mentioned above. Exam Vital Signs Temp Pulse Resp BP Pulse Ox O2 Del Method 98.2 F 84 19 131/69 H 95 Room Air 04/15/25 08:00 04/15/25 09:50 04/15/25 08:00 04/15/25 09:50 04/15/25 08:00 04/15/25 08:00 Narrative Exam Physical Exam General: Elderly, cachectic female with EEG cap on, sleeping. HEENT: Normocephalic, atraumatic, mucous membranes moist. Heart: Regular rate and rhythm, normal S1 and S2, no murmurs. Lungs: Clear to auscultation with no wheezing or crackles. Abdomen: Soft, nondistended, nontender, positive bowel sounds. ?No guarding or rebound tenderness. Neurologic: Flaccid left leg per baseline. Left arm flexed per baseline. Moving right upper and lower extremity, unable to assess full strength. Follows some commands. Extremities: No edema. Skin: No rash or ecchymoses. Objective Labs 04/15/25 04:32 04/15/25 04:32 Labs: Laboratory Results - last 24 hr 04/14/25 04/15/25 13:15 04:32 WBC 7.5 RBC 3.70 L Hgb 11.5 L Hct 32.4 L MCV 88 MCH 31.1 MCHC 35.5 RDW Std Deviation 42.3 Plt Count 337 D Neut % (Auto) 74 Lymph % (Auto) 13 [place] % (Auto) 9 Eos % (Auto) 2 Baso % (Auto) 1 Neut # (Auto) 5.6 Lymph # (Auto) 1.0 [place] # (Auto) 0.7 Eos # (Auto) 0.2 Baso # (Auto) 0.1 Immature Gran # (Auto) 0.02 H Absolute Nucleated RBC 0.00 Immature Gran % 0 Nucleated RBC % 0 Sodium 143 141 Potassium 3.8 D 3.4 Chloride 107 103 Carbon Dioxide 23.7 24.2 Anion Gap 12 14 BUN 19 19 Creatinine 1.1 1.1 Estim Creat Clear Calc 32.3 L 32.3 L eGFR 51 L 51 L BUN/Creatinine Ratio 17 17 Glucose 103 183 H D Calculated Osmolality 287 288 Calcium 9.8 9.3 Corrected Calcium 10.5 H Phosphorus 2.5 1.6 L Magnesium 3.3 H 1.8 Albumin 3.1 L D Quality Measures Quality Measures none Advance care planning discussed with:: patient and child Assessment & Plan Assessment Current Active Medications: Generic Name Dose Route Start Last Admin Trade Name Freq PRN Reason Stop Dose Admin Acetaminophen 650 mg 04/13/25 16:44 Acetaminophen 325 Mg Tablet PO 05/13/25 16:43 Q6H PRN Fever >100.4 or Pain 1-10 Amiodarone HCl 200 mg 04/13/25 21:00 04/15/25 09:50 Amiodarone Hcl 200 Mg Tablet GT 05/13/25 20:59 200 mg BID JOHNY Administration Amlodipine Besylate 5 mg 04/14/25 21:00 04/15/25 09:50 Amlodipine Besylate 5 Mg Tablet GT 05/14/25 20:59 5 mg BID JOHNY Administration Ezetimibe 10 mg 04/14/25 09:00 04/15/25 09:50 Ezetimibe 10 Mg Tablet PO 05/14/25 08:59 10 mg QDAY JOHNY Administration Hydralazine HCl 10 mg 04/14/25 08:14 Hydralazine Inj 20 Mg/Ml Vial IVP 05/14/25 08:13 Q8H PRN SBP > 150 Potassium Phosphate 22.5 mmol/ 507.5 mls @ 82.778 mls/hr 04/15/25 07:59 04/15/25 09:49 Sodium Chloride IV 04/15/25 14:06 82.778 mls/hr X1 ONE Administration Levetiracetam 1,000 mg 04/13/25 16:55 04/15/25 09:49 Levetiracetam Inj 100 Mg/Ml Vial 5ml IVP 05/13/25 16:54 1,000 mg Q12HR JOHNY Administration Levothyroxine Sodium 100 mcg 04/14/25 06:00 04/15/25 05:13 Levothyroxine Sodium 100 Mcg Tablet GT 05/14/25 05:59 100 mcg ACBR JOHNY Administration Lorazepam 0.5 mg 04/13/25 16:52 Lorazepam 2 Mg/Ml Vial IVP 04/18/25 16:51 X1 PRN SEIZURES Ondansetron HCl 4 mg 04/13/25 16:44 04/15/25 09:50 Ondansetron Inj 2 Mg/Ml Inj 2 Ml IVP 05/13/25 16:43 4 mg Q6H PRN Administration NAUSEA OR VOMITING Protocol Plan 80-year-old female with past medical history of ischemic stroke with hemorrhagic conversion, seizures, hypertension, A-fib not on anticoagulation, CKD, and PEG tube 10/2024 secondary to stroke who was BIBA from home to the ED on 04/13/2025 with altered mental status. 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 #Right frontal lobe hemorrhage #History of ischemic stroke with hemorrhagic conversion Patient presented with altered mental status for 2 days, has been having staring episode with upper body shaking movements, unable to follow commands appropriately CXR reading by radiologist reported significant pneumonia left base however on our read there is no pneumonia present and clinically the patient does not exhibit any signs or symptoms of pneumonia UA is positive for leukocyte esterase however few WBCs and no bacteria are present CT head showed hemorrhagic density, 20 mm in the right frontal lobe Family denied neurosurgical intervention We will avoid antiplatelet and anticoagulation in setting of intracranial hemorrhage BP goal SBP<140 Speech therapy did not pass patient for swallow, will start tube feedings PT will re-evaluate when appropriate -Continue home Ezetimibe -Neurology following, appreciate recommendations -Pending EEG -Continue Keppra 1000 mg IV BID -Ativan as needed for breakthrough seizures -Head of bed elevation -Neurochecks q6h -Seizure precautions -Will plan for head CT without contrast after 48 hours, to be completed after EEG done on 04/15/2025 -Blood cultures pending -Continue tube feeds at goal rate with free water flushes #Acute kidney injury - resolved Likely prerenal in setting of decreased oral intake. BUN/creatinine of 30/1.5 on admission, baseline appears to be around 1 -Stopped D5W IV fluids at 75 ml/hr -Continue tube feeds at goal rate with free water flushes at 40 ml/hr x 22 hr daily #Electrolyte imbalance - resolved #Hypovolemic hyperosmoler hypernatremia #Hypokalemia #Hypomagnesemia #Hypercalcemia Sodium level 147 on admission, uptrended to 150. Very likely in the setting of lack of intake. Corrected after fluids and tube feedings. -Stopped D5W IV fluids at 75 ml/hr -Repleted Phos with Kphos 22.5 mmol #Hypertension Goal SBP <140 in the setting of hemorrhagic stroke -Continue home amlodipine 5 mg BID -Hydralazine 10 mg IV prn if SBP >150 #History of A-fib Currently sinus rhythm, heart rate in 60s -Continuous Telemetry -Continue home amiodarone 200 mg BID #History of hypothyroidism TSH normal -Continue levothyroxine CODE STATUS: Full code DVT prophylaxis: SCDs Disposition: Telemetry Diet: NPO Patient plan of care was discussed with the attending physician, Dr. Patel. Indy Fajardo, PGY-2
--- NOTE | 2025-04-15 13:23 | PC.SS ---
HAND I TUBE BENDER conducted bedside contact with the patient conduct initial assessment and to discuss discharge planning.? At bedside with patient was daughter, Cat Coley .? Information obtained from daughter.? Patient resides at home with daughter.? Patient is bedbound.? Patient does not utilize home oxygen.? Patient requires assistance with the completion of ADL?s.? Family assists patient with completion of ADL?s.? Patient?s surrogate medical decision maker is Cat patel.? Patient?s PCP is Dr. Little.? Patient does not participate with dialysis.? Patient is in possession of PEG tube.? Discharge plan is for the patient to return home.? Patient possesses hospital bed and go lyft at home.? If home health recommended no preferred agency identified.? Patient does not possess coverage for transportation.? field services director to arrange transportation on behalf of the patient. ?No further discharge needs identified by the patient.? No further intervention required at this time, social worker assistant will be available to address any further concerns.? Next of Kin: Cat Anna D/C Plan: Home
--- NOTE | 2025-04-15 15:01 | PC.SS ---
Rounding Note: Plan is for patient to obtain EEG and repeat head CT. Family declined hospice discussion.
--- NOTE | 2025-04-15 15:55 | RESP.EEG ---
EEG COMPLETED AND READY FOR REVIEW.
[2025-04-16] VITALS (10 sets, daily range): BP systolic 117–136; BP diastolic 63–83; PULSE 64–99; RESP 15–94; TEMP 36.1–36.6; O2SAT 94–97; BMI 21.9
[2025-04-16] MEDS: LEVOTHYROXINE SODIUM 100 MCG TABLET GT (05:19)
[2025-04-16 05:50] LABS: Basophils % (Auto) 1 % (0-2.5); Eosinophils # (Auto) 0.4 Thou/mm3 (0.0-0.5); Eosinophils % (Auto) 5 % (0-10); Hematocrit 35.6 % (36.0-46.0); Hemoglobin 12.3 g/dL (12.0-16.0); Immature Granulocytes % (Auto) 0 % (0-0); Immature Granulocytes Auto 0.03 Thou/mm3 (0.00-0.00); Lymphocytes # (Auto) 1.8 Thou/mm3 (1.0-4.8); Lymphocytes % (Auto) 21 % (10-50); Mean Corpuscular HGB Conc 34.6 g/dl (31.0-37.0); Mean Corpuscular Hemoglobin 31.5 pg (25.0-35.0); Mean Corpuscular Volume 91 fL (80-100); Monocytes # (Auto) 0.9 Thou/mm3 (0.0-0.8); Monocytes % (Auto) 11 % (0-12); Neutrophils # (Auto) 5.4 Thou/mm3 (1.8-7.7); Neutrophils % (Auto) 63 % (37-80); Nucleated Red Blood Cell % 0 /100 WBC (0); Platelet Count 326 Thou/mm3 (140-440); RDW Standard Deviation 44.6 fL (36.4-46.3); White Blood Count 8.5 Thou/mm3 (3.6-11.0)
[2025-04-16 06:40] LABS: Anion Gap 13 (7-16); BUN/Creatinine Ratio 17 Ratio (12-20); Blood Urea Nitrogen 15 mg/dL (9-23); Calcium 9.1 mg/dL (8.3-10.6); Carbon Dioxide 24.9 mMol/L (20.0-31.0); Chloride 106 mMol/L (98-107); Creatinine (Component) 0.9 mg/dL (0.6-1.3); Estimated Creatinine Clearance 39.4 mL/min (>60); Glucose 98 mg/dL (74-106); Magnesium 1.5 mg/dL (1.6-2.6); Osmolality,Calculated 287 (275-295); Phosphorous 3.1 mg/dL (2.4-5.1); Potassium 4.1 mMol/L (3.4-5.1); Sodium 144 mMol/L (136-145); eGFR > 60 See Note
[2025-04-16] MEDS: levETIRAcetam INJ 100 MG/ML VIAL 5ML 1000 MG IVP ×2 (08:10→20:37)
[2025-04-16] MEDS: amLODIPine BESYLATE 5 MG TABLET GT ×2 (08:12→20:37)
[2025-04-16] MEDS: EZETIMIBE 10 MG TABLET PO (08:12)
[2025-04-16] MEDS: AMIODARONE HCL 200 MG TABLET GT ×2 (08:12→20:37)
[2025-04-16] MEDS: Magnesium Sulfate 4 GM Ivpb 4 GM/50 ML BAG IV (08:12)
--- NOTE | 2025-04-16 11:05 | CHAP ---
Patient was visited by the Spiritual Care Volunteer who said a silent prayer for them. (Volunteer was in the hospital from 09:30-11:05)
--- NOTE | 2025-04-16 13:41 | ESPR_ITS ---
Documentation for date of: 04/16/25 Subjective Subjective Interval history: No acute events overnight.?Patient seen and examined at bedside this AM.?Patient was seen asleep. Attempted to prompt patient to open eyes, but she did not. She was able to follow commands however and squeezed fingers. She also verbalized some words but difficult to discern what was being said. Daughter open to patient receiving physical therapy. Discussed with daughter at bedside option of returning to half-way or rehab, daughter seemed against the idea. She was unhappy with the care at [facility] and [facility] previously. Daughter Cat appeared to want patient at home but is also nervous about managing tube feedings. Reassured her that our school community relations coordinator can provide education and home health services would be able to help with the process. Labs and vitals were reviewed.?BP stable. Labs stable, magnesium 1.5 so repleted with 4 g magnesium. Repeat head CT from yesterday showed slightly less prominent density in the suspected area of hemorrhage in the right frontal lobe. Review of systems otherwise negative except what is mentioned above. Exam Vital Signs Temp Pulse Resp BP Pulse Ox O2 Del Method 97.4 F 70 18 126/68 97 Room Air 04/16/25 08:00 04/16/25 11:05 04/16/25 11:05 04/16/25 08:12 04/16/25 08:00 04/16/25 08:00 Narrative Exam Physical Exam General: Elderly, cachectic female, sleeping, but awakens to voice and vocalizes with dysarthric speech. HEENT: Normocephalic, atraumatic, mucous membranes moist. Heart: Regular rate and rhythm, normal S1 and S2, no murmurs. Lungs: Clear to auscultation with no wheezing or crackles. Abdomen: Soft, nondistended, nontender, positive bowel sounds. ?No guarding or rebound tenderness. Neurologic: Flaccid left leg per baseline. Left arm flexed per baseline. Moving right upper and lower extremity, unable to assess full strength. Follows some commands. Extremities: No edema. Skin: No rash or ecchymoses. Objective Labs 04/19/25 05:03 04/19/25 05:03 Labs: Laboratory Results - last 24 hr 04/16/25 04:25 WBC 8.5 RBC 3.90 L Hgb 12.3 Hct 35.6 L MCV 91 MCH 31.5 MCHC 34.6 RDW Std Deviation 44.6 Plt Count 326 Neut % (Auto) 63 Lymph % (Auto) 21 [place] % (Auto) 11 Eos % (Auto) 5 Baso % (Auto) 1 Neut # (Auto) 5.4 Lymph # (Auto) 1.8 [place] # (Auto) 0.9 H Eos # (Auto) 0.4 Baso # (Auto) 0.0 Immature Gran # (Auto) 0.03 H Absolute Nucleated RBC 0.00 Immature Gran % 0 Nucleated RBC % 0 Sodium 144 Potassium 4.1 D Chloride 106 Carbon Dioxide 24.9 Anion Gap 13 BUN 15 Creatinine 0.9 Estim Creat Clear Calc 39.4 L eGFR > 60 BUN/Creatinine Ratio 17 Glucose 98 D Calculated Osmolality 287 Calcium 9.1 Phosphorus 3.1 Magnesium 1.5 L Quality Measures Quality Measures none Advance care planning discussed with:: patient and child Assessment & Plan Assessment Current Active Medications: Generic Name Dose Route Start Last Admin Trade Name Freq PRN Reason Stop Dose Admin Acetaminophen 650 mg 04/13/25 16:44 Acetaminophen 325 Mg Tablet PO 05/13/25 16:43 Q6H PRN Fever >100.4 or Pain 1-10 Amiodarone HCl 200 mg 04/13/25 21:00 04/16/25 08:12 Amiodarone Hcl 200 Mg Tablet GT 05/13/25 20:59 200 mg BID JOHNY Administration Amlodipine Besylate 5 mg 04/14/25 21:00 04/16/25 08:12 Amlodipine Besylate 5 Mg Tablet GT 05/14/25 20:59 5 mg BID JOHNY Administration Ezetimibe 10 mg 04/14/25 09:00 04/16/25 08:12 Ezetimibe 10 Mg Tablet PO 05/14/25 08:59 10 mg QDAY JOHNY Administration Hydralazine HCl 10 mg 04/14/25 08:14 Hydralazine Inj 20 Mg/Ml Vial IVP 05/14/25 08:13 Q8H PRN SBP > 150 Levetiracetam 1,000 mg 04/13/25 16:55 04/16/25 08:10 Levetiracetam Inj 100 Mg/Ml Vial 5ml IVP 05/13/25 16:54 1,000 mg Q12HR JOHNY Administration Levothyroxine Sodium 100 mcg 04/14/25 06:00 04/16/25 05:19 Levothyroxine Sodium 100 Mcg Tablet GT 05/14/25 05:59 100 mcg ACBR JOHNY Administration Lorazepam 0.5 mg 04/13/25 16:52 Lorazepam 2 Mg/Ml Vial IVP 04/18/25 16:51 X1 PRN SEIZURES Ondansetron HCl 4 mg 04/13/25 16:44 04/15/25 09:50 Ondansetron Inj 2 Mg/Ml Inj 2 Ml IVP 05/13/25 16:43 4 mg Q6H PRN Administration NAUSEA OR VOMITING Protocol Plan 80-year-old female with past medical history of ischemic stroke with hemorrhagic conversion, seizures, hypertension, A-fib not on anticoagulation, CKD, and PEG tube 10/2024 secondary to stroke who was BIBA from home to the ED on 04/13/2025 with altered mental status. 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 #Right frontal lobe hemorrhage #History of ischemic stroke with hemorrhagic conversion Patient presented with altered mental status for 2 days, has been having staring episode with upper body shaking movements, unable to follow commands appropriately CXR reading by radiologist reported significant pneumonia left base however on our read there is no pneumonia present and clinically the patient does not exhibit any signs or symptoms of pneumonia UA is positive for leukocyte esterase however few WBCs and no bacteria are present 04/13/2025 CT head showed hemorrhagic density, 20 mm in the right frontal lobe 04/15/[address] head showed reduced prominence of the above Family denied neurosurgical intervention We will avoid antiplatelet and anticoagulation in setting of intracranial hemorrhage BP goal SBP<140 Speech therapy did not pass patient for swallow, will start tube feedings PT was not able to work with patient first round as family refused Blood cultures negative -Continue home Ezetimibe -Continue Keppra 1000 mg IV BID -Ativan as needed for breakthrough seizures -Neurology following, appreciate recommendations -Pending EEG read -Head of bed elevation -Neurochecks q6h -Seizure precautions -PT re-ordered -Continue tube feeds at goal rate with free water flushes -Prepare for discharge in the next 24 hours with home health #Acute kidney injury - resolved Likely prerenal in setting of decreased oral intake. BUN/creatinine of 30/1.5 on admission, baseline appears to be around 1 -Continue tube feeds at goal rate with free water flushes at 40 ml/hr x 22 hr daily #Electrolyte imbalance - resolved #Hypovolemic hyperosmoler hypernatremia #Hypokalemia #Hypomagnesemia #Hypercalcemia Sodium level 147 on admission, uptrended to 150. Very likely in the setting of lack of intake. Corrected after fluids and tube feedings. -Repleted Mag with 4 g IV #Hypertension Goal SBP <140 in the setting of hemorrhagic stroke -Continue home amlodipine 5 mg BID -Hydralazine 10 mg IV prn if SBP >150 #History of A-fib Currently sinus rhythm, heart rate in 60s -Continuous Telemetry -Continue home amiodarone 200 mg BID #History of hypothyroidism TSH normal -Continue levothyroxine CODE STATUS: Full code DVT prophylaxis: SCDs Disposition: Telemetry Diet: NPO Patient plan of care was discussed with the attending physician, Dr. Leary. Indy Fajardo, PGY-2 Attending Provider Attestation/Addendum Face to face evaluation was performed by me. I have personally seen and examined the patient. I discussed the assessment and plan with the entire medicine team. I reviewed available medical records, imaging studies, laboratory results. I agree with the above subjective data, objective findings, assessment and plan except as corrected by me or noted below Acute encephalopathy, due to below Acute hemorrhagic stroke Focal seizures Hyperlipidemia Hypothyroidism At least moderate protein calorie malnutrition with possible failure to thrive, unable to further specify. Speech therapy, therapy, avoid blood thinners neurology consultation continue Keppra, tube feeds. Keep blood pressure under control below 140?150 systolic More than > 30 minutes spent on the encounter
--- NOTE | 2025-04-16 16:05 | PC.SS ---
Rounding note: Pending EEG read and Dr. Rolon recommendations.
[2025-04-16] MEDS: ACETAMINOPHEN 325 MG TABLET 650 MG PO (18:28)
--- NOTE | 2025-04-16 22:47 | PD.NEUROPROG ---
Documentation for date of: 04/16/25 Subjective Subjective Interval history: Patient was seen in telemetry today at the bedside. Continue to have dense left hemiplegia with spasticity and contracture. She moves right upper and lower extremities well. She has not had any seizures since admission. Exam - Neurology Vital Signs Temp Pulse Resp BP Pulse Ox O2 Del Method 97.8 F 83 22 H 117/63 95 Room Air 04/16/25 20:00 04/16/25 20:37 04/16/25 20:00 04/16/25 20:37 04/16/25 20:00 04/16/25 20:00 Narrative Exam GENERAL APPEARANCE: Well hydrated, well-nourished , in no acute distress HEENT: Normocephalic, atraumatic, extraocular movements intact. Pupils: Equal reacting to light NECK: Supple, no JVD or bruits. CARDIOVASULAR: Heart: S1, S2 heard, regular without S3-S4 or murmur no rubs or gallops. LUNGS/CHEST: Clear to auscultation bilaterally. No rails, rhonchi, or wheezing. Normal inspection. ABDOMEN: Soft, nontender, with normal bowel sounds. No pulsatile masses. No rebound, rigidity, or guarding. Normal inspection and palpation. EXTREMITIES: Normal inspection and palpation. No edema, clubbing or cyanosis. SKIN: Warm and dry without rashes. Normal inspection. MUSCULOSKELETAL: No cervical, thoracic, lumbar or midline bony tenderness. Normal inspection. NEURO: Patient is much more awake, alert, responding to questions readily, Continue to have dense left hemiplegia with spasticity and contracture noted. Moves right upper and lower extremities. PSYCHIATRIC: Limited Objective Labs 04/16/25 04:25 04/16/25 04:25 Labs: Laboratory Results - last 24 hr 04/16/25 04:25 WBC 8.5 RBC 3.90 L Hgb 12.3 Hct 35.6 L MCV 91 MCH 31.5 MCHC 34.6 RDW Std Deviation 44.6 Plt Count 326 Neut % (Auto) 63 Lymph % (Auto) 21 [place] % (Auto) 11 Eos % (Auto) 5 Baso % (Auto) 1 Neut # (Auto) 5.4 Lymph # (Auto) 1.8 [place] # (Auto) 0.9 H Eos # (Auto) 0.4 Baso # (Auto) 0.0 Immature Gran # (Auto) 0.03 H Absolute Nucleated RBC 0.00 Immature Gran % 0 Nucleated RBC % 0 Sodium 144 Potassium 4.1 D Chloride 106 Carbon Dioxide 24.9 Anion Gap 13 BUN 15 Creatinine 0.9 Estim Creat Clear Calc 39.4 L eGFR > 60 BUN/Creatinine Ratio 17 Glucose 98 D Calculated Osmolality 287 Calcium 9.1 Phosphorus 3.1 Magnesium 1.5 L Assessment & Plan Additional Assessment & Plan Additional Plan: 1) Recurrent CVA: continue to be hemiplegic on the left Continue with range of motion exercises on the left upper and lower extremities. Will hold off on antiplatelet/anticoagulant therapy because of intracerebral hemorrhage event. (2) altered mental status with focal seizures Continue with Keppra, seizure precautions. Continue with Ativan. FU with repeat EEG (3) Hypertension: Continue with aggressive blood pressure management
[2025-04-17] VITALS (13 sets, daily range): BP systolic 104–156; BP diastolic 52–80; PULSE 63–90; RESP 16–97; TEMP 36.2–36.7; O2SAT 92–98; BMI 21.9
[2025-04-17] MEDS: LEVOTHYROXINE SODIUM 100 MCG TABLET GT (05:31)
[2025-04-17 06:34] LABS: Basophils # (Auto) 0.1 Thou/mm3 (0.0-0.2); Basophils % (Auto) 1 % (0-2.5); Eosinophils # (Auto) 0.4 Thou/mm3 (0.0-0.5); Eosinophils % (Auto) 5 % (0-10); Hematocrit 34.5 % (36.0-46.0); Hemoglobin 11.5 g/dL (12.0-16.0); Immature Granulocytes % (Auto) 0 % (0-0); Immature Granulocytes Auto 0.01 Thou/mm3 (0.00-0.00); Lymphocytes # (Auto) 1.2 Thou/mm3 (1.0-4.8); Lymphocytes % (Auto) 18 % (10-50); Mean Corpuscular HGB Conc 33.3 g/dl (31.0-37.0); Mean Corpuscular Hemoglobin 30.8 pg (25.0-35.0); Mean Corpuscular Volume 93 fL (80-100); Monocytes # (Auto) 0.7 Thou/mm3 (0.0-0.8); Monocytes % (Auto) 10 % (0-12); Neutrophils # (Auto) 4.4 Thou/mm3 (1.8-7.7); Neutrophils % (Auto) 66 % (37-80); Nucleated Red Blood Cell % 0 /100 WBC (0); Platelet Count 259 Thou/mm3 (140-440); RDW Standard Deviation 46.1 fL (36.4-46.3); Red Blood Count 3.73 Miln/mm3 (4.00-5.20); White Blood Count 6.6 Thou/mm3 (3.6-11.0)
[2025-04-17 06:45] LABS: Albumin, Serum 2.9 gm/dL (3.4-4.8); Anion Gap 11 (7-16); BUN/Creatinine Ratio 16 Ratio (12-20); Blood Urea Nitrogen 16 mg/dL (9-23); Calcium 8.9 mg/dL (8.3-10.6); Calcium (Corrected) 9.8 mg/dL (8.5-10.1); Carbon Dioxide 27.8 mMol/L (20.0-31.0); Chloride 104 mMol/L (98-107); Estimated Creatinine Clearance 35.5 mL/min (>60); Glucose 116 mg/dL (74-106); Osmolality,Calculated 287 (275-295); Potassium 4.7 mMol/L (3.4-5.1); Sodium 143 mMol/L (136-145); eGFR 57 See Note
[2025-04-17] MEDS: levETIRAcetam INJ 100 MG/ML VIAL 5ML 1000 MG IVP ×2 (09:23→20:46)
[2025-04-17] MEDS: AMIODARONE HCL 200 MG TABLET GT ×2 (09:24→20:46)
[2025-04-17] MEDS: amLODIPine BESYLATE 5 MG TABLET GT ×2 (09:25→20:45)
[2025-04-17] MEDS: EZETIMIBE 10 MG TABLET PO (09:25)
--- NOTE | 2025-04-17 09:34 | PC.SS ---
Addendum entered by Ame Reyes 04/17/25 12:22: [address] Fajardo patient will not be discharging today until feeding supplies are delivered to the home and Home Health is set up. SS attempted to connect with Transfer Marcelle Sinclair requesting to connect at a later time. SS informed patient's daughter Cat patient will not be discharging today. LEEROY Smith and COLTON Perez informed. 1022 SS received call from Contreras SANTANA who informed SS he would be meeting with patient and her daughter Cat to provide education. Original Note: SS met with patient's daughter, Boris, at bedside to confirm discharge plan. Boris stated patient would be discharging home and transportation support would be needed. Boris expressed concern with nutrition education and not feeling fully comfortable doing it at home. Boris also stated patient had expressed feeling weak still and dizzy. Boris stated she is aware patient may be discharged today and will appeal the discharge. Dr. Fajardo and LEEROY Smith informed.
[2025-04-17] MEDS: ACETAMINOPHEN 325 MG TABLET 650 MG PO (10:44)
--- NOTE | 2025-04-17 13:48 | PD.RESPRO ---
Documentation for date of: 04/17/25 Subjective Subjective Interval history: No acute events overnight.?Patient seen and examined at bedside this AM.?Patient has made a remarkable recovery and verbalizes speech that is understandable. She is following commands and is oriented to person, date of , place, and year. Right upper and lower extremity with 4/5 strength. Left side flaccid per patient's baseline. Plan is for daughter, Cat to receive education on tube feedings today and for home health referral to be set up. Patient is cleared from Neurology and medicine standpoint for discharge, however will need to await home health supplies to be ready at the patient's home. Labs and vitals were reviewed and normal.?No further complaints at this time. Review of systems otherwise negative except what is mentioned above. Exam Vital Signs Temp Pulse Resp BP Pulse Ox O2 Del Method 97.9 F 83 16 145/76 H 97 Room Air 04/17/25 12:00 04/17/25 12:00 04/17/25 12:00 04/17/25 12:00 04/17/25 12:04/17/25 12:00 Narrative Exam Physical Exam General: Elderly, cachectic female, sleeping, but awakens to voice and vocalizes with dysarthric speech, improvement from previous day. HEENT: Normocephalic, atraumatic, mucous membranes moist. Heart: Regular rate and rhythm, normal S1 and S2, no murmurs. Lungs: Clear to auscultation with no wheezing or crackles. Abdomen: Soft, nondistended, nontender, positive bowel sounds. ?No guarding or rebound tenderness. Neurologic: A&O x4. Flaccid left leg per baseline. Left arm flexed per baseline. Right upper and lower extremity 4/5 strength. Follows commands. Extremities: No edema. Skin: No rash or ecchymoses. Objective Labs 04/19/25 05:03 04/19/25 05:03 Labs: Laboratory Results - last 24 hr 04/17/25 04:29 WBC 6.6 RBC 3.73 L Hgb 11.5 L Hct 34.5 L MCV 93 MCH 30.8 MCHC 33.3 RDW Std Deviation 46.1 Plt Count 259 D Neut % (Auto) 66 Lymph % (Auto) 18 [place] % (Auto) 10 Eos % (Auto) 5 Baso % (Auto) 1 Neut # (Auto) 4.4 Lymph # (Auto) 1.2 [place] # (Auto) 0.7 Eos # (Auto) 0.4 Baso # (Auto) 0.1 Immature Gran # (Auto) 0.01 H Absolute Nucleated RBC 0.00 Immature Gran % 0 Nucleated RBC % 0 Sodium 143 Potassium 4.7 D Chloride 104 Carbon Dioxide 27.8 Anion Gap 11 BUN 16 Creatinine 1.0 Estim Creat Clear Calc 35.5 L eGFR 57 L BUN/Creatinine Ratio 16 Glucose 116 H Calculated Osmolality 287 Calcium 8.9 Corrected Calcium 9.8 Phosphorus 3.0 Magnesium 2.0 Albumin 2.9 L Quality Measures Quality Measures none Advance care planning discussed with:: patient Assessment & Plan Assessment Current Active Medications: Generic Name Dose Route Start Last Admin Trade Name Freq PRN Reason Stop Dose Admin Acetaminophen 650 mg 04/13/25 16:44 04/17/25 10:44 Acetaminophen 325 Mg Tablet PO 05/13/25 16:43 650 mg Q6H PRN Administration Fever >100.4 or Pain 1-10 Amiodarone HCl 200 mg 04/13/25 21:00 04/17/25 09:24 Amiodarone Hcl 200 Mg Tablet GT 05/13/25 20:59 200 mg BID JOHNY Administration Amlodipine Besylate 5 mg 04/14/25 21:00 04/17/25 09:25 Amlodipine Besylate 5 Mg Tablet GT 05/14/25 20:59 5 mg BID JOHNY Administration Ezetimibe 10 mg 04/14/25 09:00 04/17/25 09:25 Ezetimibe 10 Mg Tablet PO 05/14/25 08:59 10 mg QDAY JOHNY Administration Hydralazine HCl 10 mg 04/14/25 08:14 Hydralazine Inj 20 Mg/Ml Vial IVP 05/14/25 08:13 Q8H PRN SBP > 150 Levetiracetam 1,000 mg 04/13/25 16:55 04/17/25 09:23 Levetiracetam Inj 100 Mg/Ml Vial 5ml IVP 05/13/25 16:54 1,000 mg Q12HR JOHNY Administration Levothyroxine Sodium 100 mcg 04/14/25 06:00 04/17/25 05:31 Levothyroxine Sodium 100 Mcg Tablet GT 05/14/25 05:59 100 mcg ACBR JOHNY Administration Lorazepam 0.5 mg 04/13/25 16:52 Lorazepam 2 Mg/Ml Vial IVP 04/18/25 16:51 X1 PRN SEIZURES Ondansetron HCl 4 mg 04/13/25 16:44 04/15/25 09:50 Ondansetron Inj 2 Mg/Ml Inj 2 Ml IVP 05/13/25 16:43 4 mg Q6H PRN Administration NAUSEA OR VOMITING Protocol Plan 80-year-old female with past medical history of ischemic stroke with hemorrhagic conversion, seizures, hypertension, A-fib not on anticoagulation, CKD, and PEG tube 10/2024 secondary to stroke who was BIBA from home to the ED on 04/13/2025 with altered mental status. 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 #Right frontal lobe hemorrhage #History of ischemic stroke with hemorrhagic conversion Patient presented with altered mental status for 2 days, has been having staring episode with upper body shaking movements, unable to follow commands appropriately CXR reading by radiologist reported significant pneumonia left base however on our read there is no pneumonia present and clinically the patient does not exhibit any signs or symptoms of pneumonia UA is positive for leukocyte esterase however few WBCs and no bacteria are present 04/13/2025 CT head showed hemorrhagic density, 20 mm in the right frontal lobe 04/15/[address] head showed reduced prominence of the above Family denied neurosurgical intervention We will avoid antiplatelet and anticoagulation in setting of intracranial hemorrhage BP goal SBP<140 Speech therapy did not pass patient for swallow, will start tube feedings PT was not able to work with patient first round as family refused Blood cultures negative 04/17/2025 Marked improvement in mental status. Patient follows commands, opens eyes, verbalizes comprendable responses, alert and oriented. -Continue home ezetimibe -Continue Keppra 1000 mg IV BID -Ativan as needed for breakthrough seizures -Neurology following, appreciate recommendations -Pending EEG read -Head of bed elevation -Neurochecks q6h -Seizure precautions -PT re-ordered -Continue tube feeds at goal rate with free water flushes -Prepare for discharge in the next 24-48 hours with home health -Pending home health set-up #Acute kidney injury - resolved Likely prerenal in setting of decreased oral intake. BUN/creatinine of 30/1.5 on admission, baseline appears to be around 1 -Continue tube feeds at goal rate with free water flushes at 40 ml/hr x 22 hr daily #Electrolyte imbalance - resolved #Hypovolemic hyperosmoler hypernatremia #Hypokalemia #Hypomagnesemia #Hypercalcemia Sodium level 147 on admission, uptrended to 150. Very likely in the setting of lack of intake. Corrected after fluids and tube feedings. -Monitor #Hypertension Goal SBP <140 in the setting of hemorrhagic stroke -Continue home amlodipine 5 mg BID -Hydralazine 10 mg IV prn if SBP >150 #History of A-fib Currently sinus rhythm, heart rate in 60s -Continuous Telemetry -Continue home amiodarone 200 mg BID #History of hypothyroidism TSH normal -Continue levothyroxine 100 mcg qday CODE STATUS: Full code DVT prophylaxis: SCDs Disposition: Telemetry Diet: NPO Patient plan of care was discussed with the attending physician, Dr. Leary. Indy Fajardo, PGY-2 Attending Provider Attestation/Addendum Face to face evaluation was performed by me. I have personally seen and examined the patient. I discussed the assessment and plan with the entire medicine team. I reviewed available medical records, imaging studies, laboratory results. I agree with the above subjective data, objective findings, assessment and plan except as corrected by me or noted below Acute encephalopathy, due to below Acute hemorrhagic stroke Focal seizures Hyperlipidemia Hypothyroidism Patient in bed, mental status seem to be better. Chart reviewed discussed with team. At least moderate protein calorie malnutrition with possible failure to thrive, unable to further specify. Speech therapy, therapy, avoid blood thinners neurology consultation continue Keppra, tube feeds. Keep blood pressure under control below 140?150 systolic More than > 30 minutes spent on the encounter
--- NOTE | 2025-04-17 13:53 | PC.CC ---
Addendum entered by Yarely Newman RN 04/17/25 15:06: referral sent to [facility], awaiting response. Addendum entered by Yarely Newman RN 04/17/25 15:03: HH referral sent on [facility]. Awaiting responses. Pending start of care date. Addendum entered by Yarely Newman RN 04/17/25 14:00: spoke to Contreras babcock for his recommendations. Original Note: spoke to Ame HOROWITZ, pt needs tube feeding. I informed SS that the HH order I received doesn't have tube feeding orders in it. I also informed her pt has medicare and delivery would not be hard today but I need recommendations from readiness paraprofessional so I can ask the to update the order and send it to agencies and [facility]. Ame stated pt is appealing her discharge today.
--- NOTE | 2025-04-17 14:33 | PC.DIETICIAN ---
Nutrition recommendations ? Current EN regimen while hospitalized - continuous feeds: Jevity 1.2 at 55 ml/hr x 22 hr via PEG tube by pump (goal). If no IV fluids, water flushes of 40 ml/hr x 22 hrs (or per MD). -Hold TF for one hour before and after levothyroxine administration- Provides: 1452 kcal, 67 g prot, 976 ml free water, 1210 ml total volume. ? At home, pt?s daughter can consider cyclic feeds by pump for 16, or 12 hours: Jevity 1.2 at 75 ml/hr x 16 hrs via PEG tube by pump. Water flushes of 55 ml/hr (or per MD). Jevity 1.2 at 100 ml/hr x 12 hrs via PEG tube by pump.Water flushes of 75 ml/hr (or per MD). Provides: 1440 kcal, 67 g prot, 968 ml free water, 1200 ml total volume. ? If desired and tolerated, bolus feeding by syringe can be considered in the future: Jevity 1.2 via PEG tube by bolus syringe: ?? 8 oz (1 container) five times per day. ?? Flush with 90 ml water before and after feeds. Provides: 1425 kcal, 66 g prot, 955 ml free water, 1185 ml total volume.
--- NOTE | 2025-04-17 23:39 | PD.VPROG1 ---
Telemedicine visit statement This visit was conducted with the use of interactive audio and video telecommunications system that permits real time communication between the patient and the provider. Patient's verbal consent for virtual visit was obtained on 04/17/25 at 2339. Documentation for date of: 04/17/25 Subjective Subjective Interval history: Patient is in telemetry. Continues to have left dense hemiplegia but no more focal sz in the left UE. Got admitted with pneumonia and UTI. CT head showed a newly noticeable hge in the rgiht frontal area. Virtual exam Vital Signs Temp Pulse Resp BP Pulse Ox O2 Del Method 97.2 F 87 20 156/52 H 96 Room Air 04/17/25 20:00 04/17/25 20:46 04/17/25 20:00 04/17/25 20:46 04/17/25 20:00 04/17/25 20:00 Objective Labs 04/17/25 04:29 04/17/25 04:29 Labs: Laboratory Results - last 24 hr 04/17/25 04:29 WBC 6.6 RBC 3.73 L Hgb 11.5 L Hct 34.5 L MCV 93 MCH 30.8 MCHC 33.3 RDW Std Deviation 46.1 Plt Count 259 D Neut % (Auto) 66 Lymph % (Auto) 18 [place] % (Auto) 10 Eos % (Auto) 5 Baso % (Auto) 1 Neut # (Auto) 4.4 Lymph # (Auto) 1.2 [place] # (Auto) 0.7 Eos # (Auto) 0.4 Baso # (Auto) 0.1 Immature Gran # (Auto) 0.01 H Absolute Nucleated RBC 0.00 Immature Gran % 0 Nucleated RBC % 0 Sodium 143 Potassium 4.7 D Chloride 104 Carbon Dioxide 27.8 Anion Gap 11 BUN 16 Creatinine 1.0 Estim Creat Clear Calc 35.5 L eGFR 57 L BUN/Creatinine Ratio 16 Glucose 116 H Calculated Osmolality 287 Calcium 8.9 Corrected Calcium 9.8 Phosphorus 3.0 Magnesium 2.0 Albumin 2.9 L Assessment & Plan Assessment 1) 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 Will hold off on antiplatelet/anticoagulant therapy for at least 2 months because of the recent intracerebral hemorrhage event, seen more prominent from recent imaging study As the daughter decided against any surgical intervention, we decided to keep her locally and manage conservatively. Stable for d/c home with home health. (2) altered mental status from focal seizures: continue with the Keppra 1000 mg twice a day. Will continue to monitor her closely (3) Hypertension: Continue with aggressive blood pressure management 4) Pneumonia: treated with antibiotics.
[2025-04-18] VITALS (12 sets, daily range): BP systolic 127–153; BP diastolic 68–88; PULSE 74–93; RESP 12–21; TEMP 36.4–36.8; O2SAT 94–97; BMI 22.1
[2025-04-18] MEDS: LEVOTHYROXINE SODIUM 100 MCG TABLET GT (05:22)
[2025-04-18 06:08] LABS: Basophils # (Auto) 0.1 Thou/mm3 (0.0-0.2); Basophils % (Auto) 1 % (0-2.5); Eosinophils # (Auto) 0.6 Thou/mm3 (0.0-0.5); Eosinophils % (Auto) 7 % (0-10); Hematocrit 36.7 % (36.0-46.0); Hemoglobin 12.3 g/dL (12.0-16.0); Immature Granulocytes % (Auto) 0 % (0-0); Immature Granulocytes Auto 0.04 Thou/mm3 (0.00-0.00); Lymphocytes # (Auto) 1.3 Thou/mm3 (1.0-4.8); Lymphocytes % (Auto) 15 % (10-50); Mean Corpuscular HGB Conc 33.5 g/dl (31.0-37.0); Mean Corpuscular Hemoglobin 31.1 pg (25.0-35.0); Mean Corpuscular Volume 93 fL (80-100); Monocytes # (Auto) 0.9 Thou/mm3 (0.0-0.8); Monocytes % (Auto) 9 % (0-12); Neutrophils # (Auto) 6.3 Thou/mm3 (1.8-7.7); Neutrophils % (Auto) 69 % (37-80); Nucleated Red Blood Cell % 0 /100 WBC (0); Platelet Count 319 Thou/mm3 (140-440); Red Blood Count 3.96 Miln/mm3 (4.00-5.20); White Blood Count 9.2 Thou/mm3 (3.6-11.0)
[2025-04-18 06:26] LABS: Albumin, Serum 3.1 gm/dL (3.4-4.8); Anion Gap 10 (7-16); BUN/Creatinine Ratio 18 Ratio (12-20); Blood Urea Nitrogen 16 mg/dL (9-23); Calcium 9.1 mg/dL (8.3-10.6); Calcium (Corrected) 9.8 mg/dL (8.5-10.1); Carbon Dioxide 29.4 mMol/L (20.0-31.0); Chloride 103 mMol/L (98-107); Creatinine (Component) 0.9 mg/dL (0.6-1.3); Estimated Creatinine Clearance 39.4 mL/min (>60); Glucose 114 mg/dL (74-106); Magnesium 1.5 mg/dL (1.6-2.6); Osmolality,Calculated 285 (275-295); Phosphorous 3.1 mg/dL (2.4-5.1); Potassium 4.4 mMol/L (3.4-5.1); Sodium 142 mMol/L (136-145); eGFR > 60 See Note
--- NOTE | 2025-04-18 08:19 | PC.CC ---
Addendum entered by Yarely Newman RN 04/18/25 16:04: 1545 spoke to SS, pt daughter might appeal the diacharge. 1542 spoke to bedside nurse to see if patient is being discharged today. Bedside nurse stated there is no dc orders yet and education for tube feeding is yet to be given. I informed bedside nurse if pt gets dc today, need to send tube feeding supplies with the patient. 1410 informed [facility] on that pt might be discharged today, if they can see the pt tomorrow. Waiting response. 1400 During meeting, I was informed that pt will be discharged today. 0951 Karyn from [facility] responded on , if patient gets dc tomorrow, they are able to see the patient on Saturday. Addendum entered by Yarely Newman RN 04/18/25 15:55: At 1003, I spoke with SS and informed that the patient may be discharged today only if we are able to send the necessary tube feeding supplies with the patient and provide tube feeding education to the family. I also advised that if the discharge is planned for today, I need to be notified so I can coordinate with [facility] to initiate start of care tomorrow. SS stated that the patient and daughter intend to appeal the discharge. Original Note: [facility] accepted the pt. Booked [facility]. [facility] considering. I informed pt has Medicare but [facility] saying insurance needs to be verified which will be Saturday. But also stated If pt needs to discharge, send home w/ enteral supplies to get thru Saturday.
[2025-04-18] MEDS: Magnesium Sulfate 4 GM Ivpb 4 GM/50 ML BAG IV (08:23)
[2025-04-18] MEDS: EZETIMIBE 10 MG TABLET PO (08:24)
[2025-04-18] MEDS: levETIRAcetam INJ 100 MG/ML VIAL 5ML 1000 MG IVP (08:27)
[2025-04-18] MEDS: amLODIPine BESYLATE 5 MG TABLET GT ×2 (08:55→21:28)
[2025-04-18] MEDS: AMIODARONE HCL 200 MG TABLET GT ×2 (08:56→21:28)
--- NOTE | 2025-04-18 10:04 | PC.SS ---
Addendum entered by Sammie Kirby 04/18/25 14:28: DC set for today, plan to provide pt and dtr with supplies needed until [facility] can deliver supplies on Saturday. [facility] to follow. Original Note: SS met with patient and her daughter Cat at to discuss DC planning and answer any questions in regards to feedings, and HH. Cat stated she has not had any education. Per Irineo, Contreras SANTANA met with her at bedside and provided her information on feedings yesterday but she feels as if she needs more hands on education. Cat also reported that the current feeding is giving the pt diarrhea, and is requesting for changes to be made as the pts bottom is very red and irritated from bowel movements. Irineo also reports pt being recently DC from [facility], and Donya provided a manual Ivy Lift in which she does nt know how to use, and she stated PT stated she could request for a automatic Ivy with remote (SS to reach out to [facility] Saturday, their office for DME is closed today). 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 SS updated, Dr. Fajardo and LEEROY VALENCIA in regards to pt concern and DC plan for tomorrow.
[2025-04-18] MEDS: LOSARTAN POTASSIUM 25 MG TABLET PO (10:50)
[2025-04-18] MEDS: ACETAMINOPHEN 325 MG TABLET 650 MG PO (10:53)
--- NOTE | 2025-04-18 14:30 | PC.SS ---
SS met with pt and dtr at bedside to provide IMM. SS informed Irineo that during rounding pt was identified as a DC. Cat reported not having any supplies for feedings. SS informed her we would provide enough for couple days leading up to [facility] seeing the pt. and providing supplies. Cat also reported nt being comfortable with tube feedings. SS inquired with [facility] to re-educate her with bolus feeds as pt will not have machine at home just yet.
--- NOTE | 2025-04-18 15:42 | ESPR_ITS ---
Documentation for date of: 04/18/25 Subjective Subjective Interval history: No acute events overnight.?Patient seen and examined at bedside this AM. Patient is awake, able to vocalize. Patient is clear for discharge from primary team and Neurology standpoint. Per transfer RN home health is set up but supplies cannot be sent to household until Saturday. However, patient and family member can leave the hospital with adequate supplies in the mean time. Daughter Cat expressing desire to appeal discharge. Labs and vitals were reviewed.?Mag 1.5 repleted with 4 g IV. No further complaints at this time. Review of systems otherwise negative except what is mentioned above. Exam Vital Signs Temp Pulse Resp BP Pulse Ox O2 Del Method 97.6 F 81 18 146/77 H 95 Room Air 04/18/25 11:59 04/18/25 12:00 04/18/25 11:59 04/18/25 11:59 04/18/25 11:59 04/18/25 11:59 Narrative Exam Physical Exam General: Elderly, cachectic female, sleeping, but awakens to voice and vocalizes with dysarthric speech, improvement from previous day. HEENT: Normocephalic, atraumatic, mucous membranes moist. Heart: Regular rate and rhythm, normal S1 and S2, no murmurs. Lungs: Clear to auscultation with no wheezing or crackles. Abdomen: Soft, nondistended, nontender, positive bowel sounds. ?No guarding or rebound tenderness. Neurologic: A&O x4. Flaccid left leg per baseline. Left arm flexed per baseline. Right upper and lower extremity 4/5 strength. Follows commands. Extremities: No edema. Skin: No rash or ecchymoses. Objective Labs 04/19/25 05:03 04/19/25 05:03 Labs: Laboratory Results - last 24 hr 04/18/25 04:47 WBC 9.2 RBC 3.96 L Hgb 12.3 Hct 36.7 MCV 93 MCH 31.1 MCHC 33.5 RDW Std Deviation 46.0 Plt Count 319 D Neut % (Auto) 69 Lymph % (Auto) 15 [place] % (Auto) 9 Eos % (Auto) 7 Baso % (Auto) 1 Neut # (Auto) 6.3 Lymph # (Auto) 1.3 [place] # (Auto) 0.9 H Eos # (Auto) 0.6 H Baso # (Auto) 0.1 Immature Gran # (Auto) 0.04 H Absolute Nucleated RBC 0.00 Immature Gran % 0 Nucleated RBC % 0 Sodium 142 Potassium 4.4 Chloride 103 Carbon Dioxide 29.4 Anion Gap 10 BUN 16 Creatinine 0.9 Estim Creat Clear Calc 39.4 L eGFR > 60 BUN/Creatinine Ratio 18 Glucose 114 H Calculated Osmolality 285 Calcium 9.1 Corrected Calcium 9.8 Phosphorus 3.1 Magnesium 1.5 L Albumin 3.1 L Quality Measures Quality Measures none Advance care planning discussed with:: patient and child Assessment & Plan Assessment Current Active Medications: Generic Name Dose Route Start Last Admin Trade Name Freq PRN Reason Stop Dose Admin Acetaminophen 650 mg 04/13/25 16:44 04/18/25 10:53 Acetaminophen 325 Mg Tablet PO 05/13/25 16:43 650 mg Q6H PRN Administration Fever >100.4 or Pain 1-10 Amiodarone HCl 200 mg 04/13/25 21:00 04/18/25 08:56 Amiodarone Hcl 200 Mg Tablet GT 05/13/25 20:59 200 mg BID JOHNY Administration Amlodipine Besylate 5 mg 04/14/25 21:00 04/18/25 08:55 Amlodipine Besylate 5 Mg Tablet GT 05/14/25 20:59 5 mg BID JOHNY Administration Ezetimibe 10 mg 04/14/25 09:00 04/18/25 08:24 Ezetimibe 10 Mg Tablet PO 05/14/25 08:59 10 mg QDAY JOHNY Administration Hydralazine HCl 10 mg 04/18/25 10:00 Hydralazine Inj 20 Mg/Ml Vial IVP 05/14/25 08:13 Q2H PRN SBP > 150 Levetiracetam 1,000 mg 04/13/25 16:55 04/18/25 08:27 Levetiracetam Inj 100 Mg/Ml Vial 5ml IVP 05/13/25 16:54 1,000 mg Q12HR JOHNY Administration Levothyroxine Sodium 100 mcg 04/14/25 06:00 04/18/25 05:22 Levothyroxine Sodium 100 Mcg Tablet GT 05/14/25 05:59 100 mcg ACBR JOHNY Administration Lorazepam 0.5 mg 04/13/25 16:52 Lorazepam 2 Mg/Ml Vial IVP 04/18/25 16:51 X1 PRN SEIZURES Losartan Potassium 25 mg 04/18/25 10:00 04/18/25 10:50 Losartan Potassium 25 Mg Tablet PO 05/18/25 09:59 25 mg QDAY JOHNY Administration Ondansetron HCl 4 mg 04/13/25 16:44 04/15/25 09:50 Ondansetron Inj 2 Mg/Ml Inj 2 Ml IVP 05/13/25 16:43 4 mg Q6H PRN Administration NAUSEA OR VOMITING Protocol Plan 80-year-old female with past medical history of ischemic stroke with hemorrhagic conversion, seizures, hypertension, A-fib not on anticoagulation, CKD, and PEG tube 10/2024 secondary to stroke who was BIBA from home to the ED on 04/13/2025 with altered mental status. 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 #Right frontal lobe hemorrhage #History of ischemic stroke with hemorrhagic conversion Patient presented with altered mental status for 2 days, has been having staring episode with upper body shaking movements, unable to follow commands appropriately CXR reading by radiologist reported significant pneumonia left base however on our read there is no pneumonia present and clinically the patient does not exhibit any signs or symptoms of pneumonia UA is positive for leukocyte esterase however few WBCs and no bacteria are present 04/13/2025 CT head showed hemorrhagic density, 20 mm in the right frontal lobe 04/15/[address] head showed reduced prominence of the above Family denied neurosurgical intervention We will avoid antiplatelet and anticoagulation in setting of intracranial hemorrhage BP goal SBP<140 Speech therapy did not pass patient for swallow, will start tube feedings PT was not able to work with patient first round as family refused Blood cultures negative 04/17/2025 Marked improvement in mental status. Patient follows commands, opens eyes, verbalizes comprendable responses, alert and oriented. -Continue home ezetimibe -Continue Keppra 1000 mg IV BID -Ativan as needed for breakthrough seizures -Neurology following, appreciate recommendations -Pending EEG read -Head of bed elevation -Neurochecks q6h -Seizure precautions -PT re-ordered -Continue tube feeds at goal rate with free water flushes -Prepare for discharge in the next 24-48 hours with home health -Pending home health set-up #Acute kidney injury - resolved Likely prerenal in setting of decreased oral intake. BUN/creatinine of 30/1.5 on admission, baseline appears to be around 1 -Continue tube feeds at goal rate with free water flushes at 40 ml/hr x 22 hr daily #Electrolyte imbalance - resolved #Hypovolemic hyperosmoler hypernatremia #Hypokalemia #Hypomagnesemia #Hypercalcemia Sodium level 147 on admission, uptrended to 150. Very likely in the setting of lack of intake. Corrected after fluids and tube feedings. -Monitor #Hypertension Goal SBP <140 in the setting of hemorrhagic stroke -Continue home amlodipine 5 mg BID -Hydralazine 10 mg IV prn if SBP >150 #History of A-fib Currently sinus rhythm, heart rate in 60s -Continuous Telemetry -Continue home amiodarone 200 mg BID #History of hypothyroidism TSH normal -Continue levothyroxine 100 mcg qday CODE STATUS: Full code DVT prophylaxis: SCDs Disposition: Telemetry Diet: NPO Patient plan of care was discussed with the attending physician, Dr. Leary. Indy Fajardo, PGY-2 Attending Provider Attestation/Addendum Face to face evaluation was performed by me. I have personally seen and examined the patient. I discussed the assessment and plan with the entire medicine team. I reviewed available medical records, imaging studies, laboratory results. I agree with the above subjective data, objective findings, assessment and plan except as corrected by me or noted below Acute encephalopathy, due to below Acute hemorrhagic stroke Focal seizures Hyperlipidemia Hypothyroidism At least moderate protein calorie malnutrition with possible failure to thrive, unable to further specify. Continue with current management, continue tube feedings, speech therapy following. Continue Keppra. Continue scheduled amiodarone, amlodipine. Ds. Keep blood pressure under control below 140?150 systolic More than > 30 minutes spent on the encounter
--- NOTE | 2025-04-18 15:44 | PC.NURSE ---
Demonstrated to pt's daughter how to administer meds through PEG tube and bolus feedings for home. Daughter verbalized understanding on how to give meds and administer bolus feedings.
--- NOTE | 2025-04-18 16:41 | PC.NURSE ---
notified dr schilling about pts daughter decision to appeal the discharge. daughter is also asking for tube feeding to be changed to a different formula, stated dietitian said would be here saturday to discuss.
--- NOTE | 2025-04-18 17:50 | PC.NURSE ---
Explained and demonstrated how to administer pt's meds and bolus feedings to pt's daughter. Daughter verbalizes understanding of how to administer meds and bolus feedings to pt.
[2025-04-18] MEDS: levETIRAcetam LIQD 500 MG/5 ML UDC 1000 MG PO (21:29)
--- NOTE | 2025-04-18 23:34 | ESPR_ITS ---
Documentation for date of: 04/18/25 Subjective Subjective Interval history: Patient was seen in telemetry today at the bedside. Continue to have dense left hemiplegia with spasticity and contracture. She moves right upper and lower extremities well. She has not had any seizures since admission. Exam - Neurology Vital Signs Temp Pulse Resp BP Pulse Ox O2 Del Method 98.3 F 88 21 H 144/83 H 94 L Room Air 04/18/25 20:00 04/18/25 21:28 04/18/25 20:00 04/18/25 21:28 04/18/25 20:00 04/18/25 20:00 Narrative Exam GENERAL APPEARANCE: Well hydrated, well-nourished , in no acute distress HEENT: Normocephalic, atraumatic, extraocular movements intact. Pupils: Equal reacting to light NECK: Supple, no JVD or bruits. CARDIOVASULAR: Heart: S1, S2 heard, regular without S3-S4 or murmur no rubs or gallops. LUNGS/CHEST: Clear to auscultation bilaterally. No rails, rhonchi, or wheezing. Normal inspection. ABDOMEN: Soft, nontender, with normal bowel sounds. No pulsatile masses. No rebound, rigidity, or guarding. Normal inspection and palpation. EXTREMITIES: Normal inspection and palpation. No edema, clubbing or cyanosis. SKIN: Warm and dry without rashes. Normal inspection. MUSCULOSKELETAL: No cervical, thoracic, lumbar or midline bony tenderness. Normal inspection. NEURO: Patient is much more awake, alert, responding to questions readily, Continue to have dense left hemiplegia with spasticity and contracture noted. Moves right upper and lower extremities. PSYCHIATRIC: Limited Objective Labs 04/19/25 05:03 04/19/25 05:03 Labs: Laboratory Results - last 24 hr 04/18/25 04:47 WBC 9.2 RBC 3.96 L Hgb 12.3 Hct 36.7 MCV 93 MCH 31.1 MCHC 33.5 RDW Std Deviation 46.0 Plt Count 319 D Neut % (Auto) 69 Lymph % (Auto) 15 [place] % (Auto) 9 Eos % (Auto) 7 Baso % (Auto) 1 Neut # (Auto) 6.3 Lymph # (Auto) 1.3 [place] # (Auto) 0.9 H Eos # (Auto) 0.6 H Baso # (Auto) 0.1 Immature Gran # (Auto) 0.04 H Absolute Nucleated RBC 0.00 Immature Gran % 0 Nucleated RBC % 0 Sodium 142 Potassium 4.4 Chloride 103 Carbon Dioxide 29.4 Anion Gap 10 BUN 16 Creatinine 0.9 Estim Creat Clear Calc 39.4 L eGFR > 60 BUN/Creatinine Ratio 18 Glucose 114 H Calculated Osmolality 285 Calcium 9.1 Corrected Calcium 9.8 Phosphorus 3.1 Magnesium 1.5 L Albumin 3.1 L Assessment & Plan Additional Assessment & Plan Additional Plan: 1) Recurrent CVA: continue to be hemiplegic on the left Continue with range of motion exercises on the left upper and lower extremities. Will hold off on antiplatelet/anticoagulant therapy because of intracerebral hemorrhage event. Needs to be switched from [facility] because of the diarrhea. Daughter wants to take her home with home health. (2) altered mental status with focal seizures Continue with Keppra, seizure precautions. Continue with Ativan. Repeat EEG showed periodic epileptiform discharges c/w seizures and recent infarction. (3) Hypertension: Continue with aggressive blood pressure management
[2025-04-19] VITALS (9 sets, daily range): BP systolic 116–142; BP diastolic 65–79; PULSE 75–93; RESP 16–22; TEMP 36.1–37; O2SAT 94–98; BMI 24.5
[2025-04-19] MEDS: LEVOTHYROXINE SODIUM 100 MCG TABLET GT (05:25)
[2025-04-19 05:58] LABS: Basophils # (Auto) 0.1 Thou/mm3 (0.0-0.2); Basophils % (Auto) 1 % (0-2.5); Eosinophils % (Auto) 10 % (0-10); Hematocrit 35.9 % (36.0-46.0); Hemoglobin 12.1 g/dL (12.0-16.0); Immature Granulocytes % (Auto) 0 % (0-0); Immature Granulocytes Auto 0.03 Thou/mm3 (0.00-0.00); Lymphocytes # (Auto) 1.6 Thou/mm3 (1.0-4.8); Lymphocytes % (Auto) 17 % (10-50); Mean Corpuscular HGB Conc 33.7 g/dl (31.0-37.0); Mean Corpuscular Hemoglobin 31.5 pg (25.0-35.0); Mean Corpuscular Volume 94 fL (80-100); Monocytes # (Auto) 0.8 Thou/mm3 (0.0-0.8); Monocytes % (Auto) 8 % (0-12); Neutrophils # (Auto) 6.1 Thou/mm3 (1.8-7.7); Neutrophils % (Auto) 64 % (37-80); Nucleated Red Blood Cell % 0 /100 WBC (0); Platelet Count 366 Thou/mm3 (140-440); RDW Standard Deviation 46.4 fL (36.4-46.3); Red Blood Count 3.84 Miln/mm3 (4.00-5.20); White Blood Count 9.6 Thou/mm3 (3.6-11.0)
[2025-04-19 06:12] LABS: Albumin, Serum 3.3 gm/dL (3.4-4.8); Anion Gap 9 (7-16); BUN/Creatinine Ratio 14 Ratio (12-20); Blood Urea Nitrogen 14 mg/dL (9-23); Calcium 9.3 mg/dL (8.3-10.6); Calcium (Corrected) 9.9 mg/dL (8.5-10.1); Carbon Dioxide 30.1 mMol/L (20.0-31.0); Chloride 100 mMol/L (98-107); Estimated Creatinine Clearance 35.5 mL/min (>60); Glucose 120 mg/dL (74-106); Magnesium 2.1 mg/dL (1.6-2.6); Osmolality,Calculated 279 (275-295); Phosphorous 3.6 mg/dL (2.4-5.1); Potassium 4.6 mMol/L (3.4-5.1); Sodium 139 mMol/L (136-145); eGFR 57 See Note
--- NOTE | 2025-04-19 07:48 | PC.CC ---
Addendum entered by Jessy Ba RN 04/19/25 15:22: Family has asked [facility] to deliver on Saturday, Charlette made aware, will plan for dc on Saturday Addendum entered by Jessy Ba RN 04/19/25 12:59: Spoke to family who state they do not know how to give bolus feedings, they did say they understood how to set up and use pump, they were also concerned about not having patients Keppra at home, Nurse Deyanira aware pharmacy said they were out of stock, waiting on [facility] to give time frame of delivery after talking to family Addendum entered by Jessy Ba RN 04/19/25 12:43: Made aware by web content & social media manager that patient is willing to dc if everything is set up, [facility] states they can deliver the new order of Osmolite tomorrow, waiting for new SOC from Charlette, Charlette needs a time frame of when feeding would be delivered Addendum entered by Jessy Ba RN 04/19/25 10:56: Made aware by web content & social media manager that patient is appealing discharge and will not be discharged today, Charlette and SHANDA made aware Addendum entered by Jessy Ba RN 04/19/25 10:46: [facility] has accepted patient, pending delivery date Original Note: Made aware by patients nurse that patient has appealed discharge, discharge now on hold, Charlette made aware
[2025-04-19] MEDS: levETIRAcetam LIQD 500 MG/5 ML UDC 1000 MG PO ×2 (09:27→21:13)
[2025-04-19] MEDS: LOSARTAN POTASSIUM 25 MG TABLET PO (09:28)
[2025-04-19] MEDS: EZETIMIBE 10 MG TABLET PO (09:28)
[2025-04-19] MEDS: AMIODARONE HCL 200 MG TABLET GT ×2 (09:28→21:14)
[2025-04-19] MEDS: amLODIPine BESYLATE 5 MG TABLET GT ×2 (09:28→21:13)
--- NOTE | 2025-04-19 10:23 | PCS.ST ---
Pt is close to baseline for PO skills. Recommend Dysphagia 2/Regluar liquids with PEG supplemental feeds per professional fee coder recommendations.
--- NOTE | 2025-04-19 12:13 | PC.DIETICIAN ---
Nutrition recommendations (updated): ? At home, pt?s daughter can consider cyclic feeds by pump for 16, or 12 hours: Osmolite 1.5 at 60 ml/hr x 16 hrs via PEG tube by pump. Water flushes of 50 ml/hr (or per MD). Osmolite 1.5 at 80 ml/hr x 12 hrs via PEG tube by pump. Water flushes of 60 ml/hr (or per MD). Provides: 1440 kcal, 60 g prot, 731 ml free water, 960 ml total volume. ? If desired and tolerated, bolus feeding by syringe can be considered in the future: Osmolite 1.5 via PEG tube by bolus syringe: 8 oz (1 container) four times per day. Flush with 90 ml water before and after feeds (or per MD). Provides: 1420 kcal, 60 g prot, 724 ml free water, 948 ml total volume.
--- NOTE | 2025-04-19 12:16 | PC.SS ---
Addendum entered by Sussy Vega 04/19/25 13:56: SS and SS Lanette called [employer] 3rd time and left voicemail explaining still have not received [employer] letter. SS called 10:09am 11:27am 1:54pm. Original Note: SS met with pt and dtr and dtr is requesting to have tube feeding formula changed to Osmolite 1.5. SS has informed transfer nurseJessy. SS received call from transfer nurseJessy stating the formula will be delivered tomorrow. SS has left 2 voicemails for [employer] at [phone] and provide them with SS phone# and fax#.. SS has still not revived the [employer] Letter. Dtr is aware SS is unable to grantee pt will be setup for transportation by a certain time.
--- NOTE | 2025-04-19 13:48 | PC.NURSE ---
education given to pts daughter on how to administer tube feedings through the kangaroo pump as well as how to administer bolus feeds and administer meds via peg tube. pt verbalized understanding and did return demonstration with tube feeding.
--- NOTE | 2025-04-19 13:56 | ESPR_ITS ---
Documentation for date of: 04/19/25 Subjective Subjective Interval history: No acute events overnight.?Patient seen and examined at bedside this AM.?Labs and vitals were reviewed which were in normal range.?Patient is ready for discharge and cleared from medical and neurology standpoint. Patient's daughter received education on both continuous and bolus tube feedings. Home health has been arranged. Presciptions for patient's medications in G-tube formulation have been sent. Approximately noon, patient's pharmacy called stating that extended release levetiracetam is not possible for G-tube as the pill cannot be crushed. Therefore we approved prescription to be altered to immediate-release levetiracetam, 1000 mg BID dose. Patient's daughter is deciding to appeal discharge, feels more comfortable taking the patient home on Saturday when there is more family support. Review of systems otherwise negative except what is mentioned above. Exam Vital Signs Temp Pulse Resp BP Pulse Ox O2 Del Method 98.0 F 78 18 116/65 96 Room Air 04/19/25 12:00 04/19/25 12:04/19/25 12:04/19/25 12:04/19/25 12:04/19/25 12:00 Narrative Exam Physical Exam General: Elderly, cachectic female, sleeping, but awakens to voice and vocalizes with dysarthric speech, improvement from previous day. HEENT: Normocephalic, atraumatic, mucous membranes moist. Heart: Regular rate and rhythm, normal S1 and S2, no murmurs. Lungs: Clear to auscultation with no wheezing or crackles. Abdomen: Soft, nondistended, nontender, positive bowel sounds. ?No guarding or rebound tenderness. Neurologic: A&O x4. Flaccid left leg per baseline. Left arm flexed per baseline. Right upper and lower extremity 4/5 strength. Follows commands. Extremities: No edema. Skin: No rash or ecchymoses. Objective Labs 04/19/25 05:03 04/19/25 05:03 Labs: Laboratory Results - last 24 hr 04/19/25 05:03 WBC 9.6 RBC 3.84 L Hgb 12.1 Hct 35.9 L MCV 94 MCH 31.5 MCHC 33.7 RDW Std Deviation 46.4 H Plt Count 366 D Neut % (Auto) 64 Lymph % (Auto) 17 [place] % (Auto) 8 Eos % (Auto) 10 Baso % (Auto) 1 Neut # (Auto) 6.1 Lymph # (Auto) 1.6 [place] # (Auto) 0.8 Eos # (Auto) 1.0 H Baso # (Auto) 0.1 Immature Gran # (Auto) 0.03 H Absolute Nucleated RBC 0.00 Immature Gran % 0 Nucleated RBC % 0 Sodium 139 Potassium 4.6 Chloride 100 Carbon Dioxide 30.1 Anion Gap 9 BUN 14 Creatinine 1.0 Estim Creat Clear Calc 35.5 L eGFR 57 L BUN/Creatinine Ratio 14 Glucose 120 H Calculated Osmolality 279 Calcium 9.3 Corrected Calcium 9.9 Phosphorus 3.6 Magnesium 2.1 Albumin 3.3 L Quality Measures Quality Measures none Advance care planning discussed with:: patient and child Assessment & Plan Assessment Current Active Medications: Generic Name Dose Route Start Last Admin Trade Name Freq PRN Reason Stop Dose Admin Acetaminophen 650 mg 04/13/25 16:44 04/18/25 10:53 Acetaminophen 325 Mg Tablet PO 05/13/25 16:43 650 mg Q6H PRN Administration Fever >100.4 or Pain 1-10 Amiodarone HCl 200 mg 04/13/25 21:00 04/19/25 09:28 Amiodarone Hcl 200 Mg Tablet GT 05/13/25 20:59 200 mg BID JOHNY Administration Amlodipine Besylate 5 mg 04/14/25 21:00 04/19/25 09:28 Amlodipine Besylate 5 Mg Tablet GT 05/14/25 20:59 5 mg BID JOHNY Administration Ezetimibe 10 mg 04/14/25 09:00 04/19/25 09:28 Ezetimibe 10 Mg Tablet PO 05/14/25 08:59 10 mg QDAY JOHNY Administration Hydralazine HCl 10 mg 04/18/25 10:00 Hydralazine Inj 20 Mg/Ml Vial IVP 05/14/25 08:13 Q2H PRN SBP > 150 Levetiracetam 1,000 mg 04/18/25 21:00 04/19/25 09:27 Levetiracetam Liqd 500 Mg/5 Ml Udc PO 05/18/25 20:59 1,000 mg Q12HR JOHNY Administration Levothyroxine Sodium 100 mcg 04/14/25 06:00 04/19/25 05:25 Levothyroxine Sodium 100 Mcg Tablet GT 05/14/25 05:59 100 mcg ACBR JOHNY Administration Losartan Potassium 25 mg 04/18/25 10:00 04/19/25 09:28 Losartan Potassium 25 Mg Tablet PO 05/18/25 09:59 25 mg QDAY JOHNY Administration Ondansetron HCl 4 mg 04/13/25 16:44 04/15/25 09:50 Ondansetron Inj 2 Mg/Ml Inj 2 Ml IVP 05/13/25 16:43 4 mg Q6H PRN Administration NAUSEA OR VOMITING Protocol Plan 80-year-old female with past medical history of ischemic stroke with hemorrhagic conversion, seizures, hypertension, A-fib not on anticoagulation, CKD, and PEG tube 10/2024 secondary to stroke who was BIBA from home to the ED on 04/13/2025 with altered mental status. 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 #Right frontal lobe hemorrhage #History of ischemic stroke with hemorrhagic conversion Patient presented with altered mental status for 2 days, has been having staring episode with upper body shaking movements, unable to follow commands appropriately CXR reading by radiologist reported significant pneumonia left base however on our read there is no pneumonia present and clinically the patient does not exhibit any signs or symptoms of pneumonia UA is positive for leukocyte esterase however few WBCs and no bacteria are present 04/13/2025 CT head showed hemorrhagic density, 20 mm in the right frontal lobe 04/15/[address] head showed reduced prominence of the above Family denied neurosurgical intervention We will avoid antiplatelet and anticoagulation in setting of intracranial hemorrhage BP goal SBP<140 Speech therapy did not pass patient for swallow, will start tube feedings PT was not able to work with patient first round as family refused Blood cultures negative 04/17/2025 Marked improvement in mental status. Patient follows commands, opens eyes, verbalizes comprendable responses, alert and oriented. -Continue home ezetimibe -Continue Keppra 1000 mg IV BID -Ativan as needed for breakthrough seizures -Neurology following, appreciate recommendations -Pending EEG read -Head of bed elevation -Neurochecks q6h -Seizure precautions -Continue tube feeds at goal rate with free water flushes -Ready for discharge #Acute kidney injury - resolved Likely prerenal in setting of decreased oral intake. BUN/creatinine of 30/1.5 on admission, baseline appears to be around 1 -Continue tube feeds at goal rate with free water flushes at 40 ml/hr x 22 hr daily #Electrolyte imbalance - resolved #Hypovolemic hyperosmoler hypernatremia #Hypokalemia #Hypomagnesemia #Hypercalcemia Sodium level 147 on admission, uptrended to 150. Very likely in the setting of lack of intake. Corrected after fluids and tube feedings. -Monitor #Hypertension Goal SBP <140 in the setting of hemorrhagic stroke Losartan was started on this admission -Continue home amlodipine 5 mg BID -Continue losartan 25 mg qday -Hydralazine 10 mg IV prn if SBP >150 #History of A-fib Currently sinus rhythm, heart rate in 60s -Continuous Telemetry -Continue home amiodarone 200 mg BID #History of hypothyroidism TSH normal -Continue levothyroxine 100 mcg qday CODE STATUS: Full code DVT prophylaxis: SCDs Disposition: Telemetry Diet: NPO Patient plan of care was discussed with the attending physician, Dr. Leary. Indy Fajardo, PGY-2 Attending Provider Attestation/Addendum Face to face evaluation was performed by me. I have personally seen and examined the patient. I discussed the assessment and plan with the entire medicine team. I reviewed available medical records, imaging studies, laboratory results. I agree with the above subjective data, objective findings, assessment and plan except as corrected by me or noted below Acute encephalopathy, due to below Acute hemorrhagic stroke Focal seizures Hyperlipidemia Hypothyroidism At least moderate protein calorie malnutrition with possible failure to thrive, unable to further specify. Patient is medically stable and ready for discharge, home with home health with tube feedings, blood pressure under better control. Continue to blood thinners. Patient's family?daughter is appealing discharge apparently. More than > 30 minutes spent on the encounter
[2025-04-19] MEDS: ACETAMINOPHEN 325 MG TABLET 650 MG PO (16:13)
--- NOTE | 2025-04-19 16:14 | PC.SS ---
SS has received the Medicare Beneficiary Appeal Request form. SS has sent patient's information to [employer]. [employer] Appeal is pending.
--- NOTE | 2025-04-19 22:28 | PD.NEUROPROG ---
Documentation for date of: 04/19/25 Subjective Subjective Interval history: Patient was seen in telemetry today at the bedside. Continue to have dense left hemiplegia with spasticity and contracture. She moves right upper and lower extremities well. She has not had any seizures since admission. Exam - Neurology Vital Signs Temp Pulse Resp BP Pulse Ox O2 Del Method 98.4 F 85 19 125/66 95 Room Air 04/19/25 20:00 04/19/25 21:14 04/19/25 20:00 04/19/25 21:14 04/19/25 20:00 04/19/25 20:00 Narrative Exam GENERAL APPEARANCE: Well hydrated, well-nourished , in no acute distress HEENT: Normocephalic, atraumatic, extraocular movements intact. Pupils: Equal reacting to light NECK: Supple, no JVD or bruits. CARDIOVASULAR: Heart: S1, S2 heard, regular without S3-S4 or murmur no rubs or gallops. LUNGS/CHEST: Clear to auscultation bilaterally. No rails, rhonchi, or wheezing. Normal inspection. ABDOMEN: Soft, nontender, with normal bowel sounds. No pulsatile masses. No rebound, rigidity, or guarding. Normal inspection and palpation. EXTREMITIES: Normal inspection and palpation. No edema, clubbing or cyanosis. SKIN: Warm and dry without rashes. Normal inspection. MUSCULOSKELETAL: No cervical, thoracic, lumbar or midline bony tenderness. Normal inspection. NEURO: Patient is much more awake, alert, responding to questions readily, Continue to have dense left hemiplegia with spasticity and contracture noted. Moves right upper and lower extremities. PSYCHIATRIC: Limited Objective Labs 04/19/25 05:03 04/19/25 05:03 Labs: Laboratory Results - last 24 hr 04/19/25 05:03 WBC 9.6 RBC 3.84 L Hgb 12.1 Hct 35.9 L MCV 94 MCH 31.5 MCHC 33.7 RDW Std Deviation 46.4 H Plt Count 366 D Neut % (Auto) 64 Lymph % (Auto) 17 [place] % (Auto) 8 Eos % (Auto) 10 Baso % (Auto) 1 Neut # (Auto) 6.1 Lymph # (Auto) 1.6 [place] # (Auto) 0.8 Eos # (Auto) 1.0 H Baso # (Auto) 0.1 Immature Gran # (Auto) 0.03 H Absolute Nucleated RBC 0.00 Immature Gran % 0 Nucleated RBC % 0 Sodium 139 Potassium 4.6 Chloride 100 Carbon Dioxide 30.1 Anion Gap 9 BUN 14 Creatinine 1.0 Estim Creat Clear Calc 35.5 L eGFR 57 L BUN/Creatinine Ratio 14 Glucose 120 H Calculated Osmolality 279 Calcium 9.3 Corrected Calcium 9.9 Phosphorus 3.6 Magnesium 2.1 Albumin 3.3 L Assessment & Plan Additional Assessment & Plan Additional Plan: 1) Recurrent CVA: continue to be hemiplegic on the left Continue with range of motion exercises on the left upper and lower extremities. Will hold off on antiplatelet/anticoagulant therapy because of intracerebral hemorrhage event. tolerating tube feeds well with no GI SE, noted switched to Osmolite D/C to home with home health, waiting for supplies. (2) altered mental status with focal seizures Continue with Keppra, seizure precautions. Continue with Ativan. Repeat EEG showed periodic epileptiform discharges c/w seizures and recent infarction. (3) Hypertension: Continue with aggressive blood pressure management
[2025-04-20] VITALS (11 sets, daily range): BP systolic 120–141; BP diastolic 61–80; PULSE 69–88; RESP 14–20; TEMP 36.3–37; O2SAT 91–97; BMI 12.0
[2025-04-20] MEDS: LEVOTHYROXINE SODIUM 100 MCG TABLET GT (05:31)
--- NOTE | 2025-04-20 08:07 | PC.SS ---
Late note 04-19-25: Pt had 2 appeal numbers. The correct [employer] Appeal # is: [id number]
--- NOTE | 2025-04-20 08:48 | PC.SS ---
Addendum entered by TAMIE Dove 04/20/25 14:57: SS update: patient's daughter is aware of the [employer] appeal outcome. Per daughterCat the plan is for patient to discharge home tomorrow morning and continue with [facility] services. Medical team updated during rounds. Addendum entered by TAMIE Dove 04/20/25 12:37: SS follow up: attempted to notify patient's daughterCat regarding [employer] appeal outcome. Voicemail provided, not at bed side during this time. Addendum entered by TAMIE Dove 04/20/25 12:23: SS follow up: Searched the status for [employer] appeal case: [id number] . Status: [place] Agrees with termination of Hospital services. Beneficiary Liability starts on 04/21/25. Original Note: SS follow up: Searched the status for [employer] appeal case: [id number] . Current status: All Documents Received . Continues pending final determination outcome.
[2025-04-20] MEDS: levETIRAcetam LIQD 500 MG/5 ML UDC 1000 MG GT ×2 (09:20→20:44)
[2025-04-20] MEDS: EZETIMIBE 10 MG TABLET GT (09:21)
[2025-04-20] MEDS: LOSARTAN POTASSIUM 25 MG TABLET GT (09:21)
[2025-04-20] MEDS: amLODIPine BESYLATE 5 MG TABLET GT ×2 (09:21→20:43)
[2025-04-20] MEDS: AMIODARONE HCL 200 MG TABLET GT ×2 (09:21→20:44)
--- NOTE | 2025-04-20 10:34 | PC.SS ---
SS met with pt and Lauren sotelo who confirmed she will be the person being taught how to do the tube feedings at home. Lauren Sotelo states she has been practicing for the past 24 hours. Emily WILLETT is aware.
--- NOTE | 2025-04-20 10:41 | CHAP ---
[facility] and received comfort, encouragement and/or prayer.
--- NOTE | 2025-04-20 10:54 | PD.RESPRO ---
Documentation for date of: 04/20/25 Subjective Subjective Interval history: Patient seen and examined at bedside. Patient is at baseline, all questions of daughters answered. Patient appealed discharge yesterday, patient's appeal was denied per bilingual case manager. Otherwise patient is stable, has no current complaints. Patient was started on dysphagia 2 diet yesterday, was evaluated by speech therapist Med rec was corrected, was discussed with pharmacist at patient's outpatient pharmacy. Exam Vital Signs Temp Pulse Resp BP Pulse Ox O2 Del Method 97.4 F 81 14 141/78 H 97 Room Air 04/20/25 08:00 04/20/25 09:21 04/20/25 08:00 04/20/25 09:21 04/20/25 08:00 04/20/25 08:00 Narrative Exam Physical Exam General: Elderly, cachectic female, sleeping, but awakens to voice and vocalizes with dysarthric speech, improvement from previous day. HEENT: Normocephalic, atraumatic, mucous membranes moist. Heart: Regular rate and rhythm, normal S1 and S2, no murmurs. Lungs: Clear to auscultation with no wheezing or crackles. Abdomen: Soft, nondistended, nontender, positive bowel sounds. ?No guarding or rebound tenderness. Neurologic: A&O x4. Flaccid left leg per baseline. Left arm flexed per baseline. Right upper and lower extremity 4/5 strength. Follows commands. Extremities: No edema. Skin: No rash or ecchymoses. Objective Labs 04/19/25 05:03 04/19/25 05:03 Quality Measures Quality Measures none Advance care planning discussed with:: patient Assessment & Plan Assessment Current Active Medications: Generic Name Dose Route Start Last Admin Trade Name Freq PRN Reason Stop Dose Admin Acetaminophen 650 mg 04/20/25 09:01 Acetaminophen 325 Mg Tablet PO 05/13/25 16:43 Q6H PRN Fever >100.4 or Pain 1-10 Amiodarone HCl 200 mg 04/13/25 21:00 04/20/25 09:21 Amiodarone Hcl 200 Mg Tablet GT 05/13/25 20:59 200 mg BID JOHNY Administration Amlodipine Besylate 5 mg 04/14/25 21:00 04/20/25 09:21 Amlodipine Besylate 5 Mg Tablet GT 05/14/25 20:59 5 mg BID JOHNY Administration Ezetimibe 10 mg 04/20/25 09:15 04/20/25 09:21 Ezetimibe 10 Mg Tablet GT 05/20/25 09:14 10 mg QDAY JOHNY Administration Hydralazine HCl 10 mg 04/18/25 10:00 Hydralazine Inj 20 Mg/Ml Vial IVP 05/14/25 08:13 Q2H PRN SBP > 150 Levetiracetam 1,000 mg 04/20/25 09:15 04/20/25 09:20 Levetiracetam Liqd 500 Mg/5 Ml Udc GT 05/20/25 09:14 1,000 mg Q12HR JOHNY Administration Levothyroxine Sodium 100 mcg 04/14/25 06:00 04/20/25 05:31 Levothyroxine Sodium 100 Mcg Tablet GT 05/14/25 05:59 100 mcg ACBR JOHNY Administration Losartan Potassium 25 mg 04/20/25 09:15 04/20/25 09:21 Losartan Potassium 25 Mg Tablet GT 05/20/25 09:14 25 mg QDAY JOHNY Administration Ondansetron HCl 4 mg 04/13/25 16:44 04/15/25 09:50 Ondansetron Inj 2 Mg/Ml Inj 2 Ml IVP 05/13/25 16:43 4 mg Q6H PRN Administration NAUSEA OR VOMITING Protocol Plan 80-year-old female with past medical history of ischemic stroke with hemorrhagic conversion, seizures, hypertension, A-fib not on anticoagulation, CKD, and PEG tube 10/2024 secondary to stroke who was BIBA from home to the ED on 04/13/2025 with altered mental status. 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 #Right frontal lobe hemorrhage #History of ischemic stroke with hemorrhagic conversion Patient presented with altered mental status for 2 days, has been having staring episode with upper body shaking movements, unable to follow commands appropriately CXR reading by radiologist reported significant pneumonia left base however on our read there is no pneumonia present and clinically the patient does not exhibit any signs or symptoms of pneumonia UA is positive for leukocyte esterase however few WBCs and no bacteria are present 04/13/2025 CT head showed hemorrhagic density, 20 mm in the right frontal lobe 04/15/[address] head showed reduced prominence of the above Family denied neurosurgical intervention We will avoid antiplatelet and anticoagulation in setting of intracranial hemorrhage BP goal SBP<140 Speech therapy reevaluated patient, patient started on dysphagia diet per speech recommendations. PT recommended home health PT Blood cultures negative 04/17/2025 Marked improvement in mental status. Patient follows commands, opens eyes, verbalizes comprendable responses, alert and oriented. Patient back to baseline. EEG is abnormal with PLEDs in the right cerebral hemisphere consistent with electrographic seizures and structural lesion in the right cerebral hemisphere. -Continue home ezetimibe -Continue Keppra 1000 mg PO BID -Ativan as needed for breakthrough seizures -Neurology following, appreciate recommendations -Head of bed elevation -Neurochecks q6h -Seizure precautions -Continue tube feeds at goal rate with free water flushes -Ready for discharge #Acute kidney injury - resolved Likely prerenal in setting of decreased oral intake. BUN/creatinine of 30/1.5 on admission, baseline appears to be around 1 -Continue tube feeds at goal rate with free water flushes at 40 ml/hr x 22 hr daily #Electrolyte imbalance - resolved #Hypovolemic hyperosmoler hypernatremia #Hypokalemia #Hypomagnesemia #Hypercalcemia Sodium level 147 on admission, uptrended to 150. Very likely in the setting of lack of intake. Corrected after fluids and tube feedings. -Monitor #Hypertension Goal SBP <140 in the setting of hemorrhagic stroke Losartan was started on this admission -Continue home amlodipine 5 mg BID -Continue losartan 25 mg qday -Hydralazine 10 mg IV prn if SBP >150 #History of A-fib Currently sinus rhythm, heart rate in 60s -Continuous Telemetry -Continue home amiodarone 200 mg BID - Anticoagulation deferred as above. #History of hypothyroidism TSH normal -Continue levothyroxine 100 mcg qday CODE STATUS: Full code DVT prophylaxis: SCDs Disposition: Telemetry, cleared for discharge, family appealing discharge Diet: Dysphagia diet per speech therapy recommendation Patient plan of care was discussed with the attending physician, Dr. Leary. Shahrzad Diallo PGY1 Attending Provider Attestation/Addendum Face to face evaluation was performed by me. I have personally seen and examined the patient. I discussed the assessment and plan with the entire medicine team. I reviewed available medical records, imaging studies, laboratory results. I agree with the above subjective data, objective findings, assessment and plan except as corrected by me or noted below Acute encephalopathy, due to below Acute hemorrhagic stroke Focal seizures Hyperlipidemia Hypothyroidism At least moderate protein calorie malnutrition with possible failure to thrive, unable to further specify. Patient is medically stable and ready for discharge, home with home health with tube feedings, blood pressure under better control. Continue to blood thinners. patient's family appealed the discharge, bilingual case manager notified me that appeal was denied. More than > 30 minutes spent on the encounter
--- NOTE | 2025-04-20 15:00 | PC.CC ---
Patient will be discharged tomorrow. [facility] will deliver feeding tomorrow and [facility] will see pt on 04/22/25. Please send dc orders and dc summary when it is available.
[2025-04-20] MEDS: ACETAMINOPHEN 325 MG TABLET 650 MG PO (15:15)
--- NOTE | 2025-04-20 22:07 | PD.NEUROPROG ---
Documentation for date of: 04/20/25 Subjective Subjective Interval history: Patient was seen in telemetry today at the bedside. Continue to have dense left hemiplegia with spasticity and contracture. She moves right upper and lower extremities well. She has not had any seizures since admission.Tolerating [place] well. Exam - Neurology Vital Signs Temp Pulse Resp BP Pulse Ox O2 Del Method 98.2 F 88 17 123/61 91 L Room Air 04/20/25 20:00 04/20/25 20:44 04/20/25 20:00 04/20/25 20:44 04/20/25 20:00 04/20/25 20:00 Narrative Exam GENERAL APPEARANCE: Well hydrated, well-nourished , in no acute distress HEENT: Normocephalic, atraumatic, extraocular movements intact. Pupils: Equal reacting to light NECK: Supple, no JVD or bruits. CARDIOVASULAR: Heart: S1, S2 heard, regular without S3-S4 or murmur no rubs or gallops. LUNGS/CHEST: Clear to auscultation bilaterally. No rails, rhonchi, or wheezing. Normal inspection. ABDOMEN: Soft, nontender, with normal bowel sounds. No pulsatile masses. No rebound, rigidity, or guarding. Normal inspection and palpation. EXTREMITIES: Normal inspection and palpation. No edema, clubbing or cyanosis. SKIN: Warm and dry without rashes. Normal inspection. MUSCULOSKELETAL: No cervical, thoracic, lumbar or midline bony tenderness. Normal inspection. NEURO: Patient is much more awake, alert, responding to questions readily, Continue to have dense left hemiplegia with spasticity and contracture noted. Moves right upper and lower extremities. PSYCHIATRIC: Limited Objective Labs 04/19/25 05:03 04/19/25 05:03 Assessment & Plan Additional Assessment & Plan Additional Plan: 1) Recurrent CVA: continue to be hemiplegic on the left Continue with range of motion exercises on the left upper and lower extremities. Will hold off on antiplatelet/anticoagulant therapy because of intracerebral hemorrhage event. Needs to be switched from Jev[place] because of the diarrhea. Daughter wants to take her home with home health. (2) altered mental status with focal seizures Continue with Keppra, seizure precautions. Continue with Ativan. Repeat EEG showed periodic epileptiform discharges c/w seizures and recent infarction. (3) Hypertension: Continue with aggressive blood pressure management
[2025-04-21] VITALS (7 sets, daily range): BP systolic 115–138; BP diastolic 66–91; PULSE 77–86; RESP 16–17; TEMP 36.7–36.9; O2SAT 93
[2025-04-21] MEDS: LEVOTHYROXINE SODIUM 100 MCG TABLET GT (05:18)
--- NOTE | 2025-04-21 08:41 | PC.SS ---
Addendum entered by TAMIE Dove 04/21/25 11:39: Patient's daughter Cat is aware [facility] home health to see the patient tomorrow on 04/22 and agreeable with this. Daughter requested on-demand transport services via wheelchair back home. ETA provided was 11:50am-noon in front lobby. Daughter and bedside RN-Kim are aware. Original Note: SS follow up: plan is for patient to discharge home with home health services. Patient's daughter is requesting transportation to be arranged via [place] on demand rides. Unable to schedule trip ahead of time, they recommend to call back once patient is closer to discharge time. Patient's daughter Cat was updated.
[2025-04-21] MEDS: AMIODARONE HCL 200 MG TABLET GT (08:46)
[2025-04-21] MEDS: LOSARTAN POTASSIUM 25 MG TABLET GT (08:46)
[2025-04-21] MEDS: EZETIMIBE 10 MG TABLET GT (08:46)
[2025-04-21] MEDS: amLODIPine BESYLATE 5 MG TABLET GT (08:46)
[2025-04-21] MEDS: levETIRAcetam LIQD 500 MG/5 ML UDC 1000 MG GT (08:47)
--- NOTE | 2025-04-21 10:04 | PC.CC ---
Addendum entered by Fan Patel RN 04/21/25 18:38: 1838: DC summary, dc order, latest pt assessment, and last HH order sent. updated HH order error occured while being sent on 04/19. Addendum entered by Fan Patel RN 04/21/25 11:33: 1117: received call back from VAISHALI Diaz stating MD is ready to dc patient. I restated [facility] could open if patient can be home by noon today, however patient will not dc'd in time. I confrimed again with Hanny adler that she stated patient's daughter has been taught and is comfortable to provide tube feeding today since [facility] will open tomorrow. Hanny confirmed. I also asked her if MD is aware and if they are ok with discharging the patient today, hanny stated MD is ready to dc patient today. Dr. Diallo made aware of SOC date and he confirmed as well, pt to dc today and that pt's daughter has been taught. Original Note: 0950: received message from [facility] Ovalles stating they can open patient today if patient can be home by 1200 today. Called Hanny ADLER, left message on VM to confirm if patient can be dc'd in time to be home by 1200 today. 0940: Hanny ADLER confirmed that pt's daughter is comfortable to provide tube feeding today is ok that [facility] opens tomorrow. 0935: Per Lyudmila Ovalles, they can open 04/22. I informed her that pt will be d/c'd today.
--- NOTE | 2025-04-21 11:30 | ESDS_ITS ---
<Statement entered by Destinee Patel MD - 04/27/25 08:55> I reviewed above note and agree with findings and plans. I have also personally examined the patient with medicine team and went over assessment and plan with medical team including international trade analyst and resident physician. Planned Discharge Date 04/21/25 DS: Providers Provider Date of admission: 04/13/25 16:37 Primary care physician: Cayden Little MD Admitting Provider: Fabio Deluca MD Attending Provider on Admission: Destinee Patel MD Consults: 04/13/25 16:48 Consult to Neurology / Tele-Neurology Stat Comment: AMS, seizures, intracranial bleed Consulting Provider: Charles Rolon 04/13/25 16:51 Referral Registered Dietitian Stat Comment: Diet recommendation poor intake, has PEG tube 04/13/25 16:52 Referral Speech Therapy Stat Comment: 04/13/25 17:19 Referral Physical Therapy Routine Comment: Physician Instructions: 04/13/25 21:16 Referral [facility] Routine Comment: FAMILY REQUEST 04/16/25 13:25 Referral Physical Therapy Routine Comment: Patient slightly improved, will re-try PT eval Physician Instructions: Attending Provider on DC: Destinee Patel MD Discharging Provider: Destinee Patel MD Anticipated date of discharge: 04/21/25 DS: Diagnosis Problem List Completed Was Problem List Reviewed/Reconciled?: Yes Hospital Course Hospital Course Hospital course: Hospital course: Ms. Awan is a 80-year-old female with past medical history of ischemic stroke with hemorrhagic conversion, seizures, hypertension, atrial fibrillation not on any anticoagulation, chronic kidney disease and status post PEG tube placement October 2024 who presented to [facility] emergency department for altered mental status for 2 days, episode of shaking upper body movements and unable to follow commands. CT scan of head on presentation showed hemorrhagic density 20 mm in right frontal lobe, findings w ere discussed with the ED physician, neurosurgical consult was recommended however patient's family denied any neurosurgical intervention. Patient was admitted to the hospital for further workup, goal SBP less than 140, patient was started on antihypertensive medication, speech therapy was consulted, physical therapy was consulted. Repeat CT scan of the head on April 15, 2025 showed reduced hemorrhagic density, EEG obtained showed PLEDs in right cerebral hemisphere consistent with electro graphic seizures and structural lesion in the right cerebral hemisphere. Patient was given IV Keppra initially, was transition to p.o. with progression of hospital course patient's BUD resolved, blood pressure control was optimized. Patient improved with the progression of hospital course, further plan is to discharge patient home on home health, patient to continue tube feedings. All medications as requested by family were sent to the pharmacy, patient to follow-up outpatient with neurology in 1 to 2 weeks. Patient is stable for discharge, responded well to hospital treatment. 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 Patel. Shahrzad Diallo PGY1 Disclaimer: This note was dictated by speech recognition. Minor errors in neuropsychology medical consultant may be present due to voice recognition software. Status at Discharge Functional status at discharge: bed bound Overall status at discharge: patient is progressing back to baseline Time Spent with Patient Time attestation: Total time spent providing and/or coordinating discharge services: Time spent: Greater than 30 minutes Quality: Stroke Pt Provided Written Stroke Discharge Instructions: Yes Exam Vital Signs Temp Pulse Resp BP Pulse Ox O2 Del Method 98.4 F 82 16 115/91 H 93 L Room Air 04/21/25 07:45 04/21/25 08:46 04/21/25 07:45 04/21/25 08:46 04/21/25 07:45 04/21/25 07:45 Narrative Exam Physical Exam General: Elderly, cachectic female, sleeping, but awakens to voice and vocalizes with dysarthric speech, improvement from previous day. HEENT: Normocephalic, atraumatic, mucous membranes moist. Heart: Regular rate and rhythm, normal S1 and S2, no murmurs. Lungs: Clear to auscultation with no wheezing or crackles. Abdomen: Soft, nondistended, nontender, positive bowel sounds. ?No guarding or rebound tenderness. Neurologic: A&O x4. Flaccid left leg per baseline. Left arm flexed per baseline. Right upper and lower extremity 4/5 strength. Follows commands. Extremities: No edema. Skin: No rash or ecchymoses. Discharge Plan Plan Patient Disposition: Home w/HOME HEALTH Patient condition on transfer: Stable Care Plan Goals: Discharge Recommendations: -Follow up with PCP within 1 week of discharge -Follow up with Dr. Rolon within 1-2 weeks of discharge -Continue Keppra 1000 mg twice daily for seizures -Continue medications amlodipine 5 mg twice daily, amiodarone 200 mg twice daily, ezetimibe 10 mg once daily, levothyroxine 100 mcg once daily through G- tube -Continue rest of medications as previously prescribed, all prescriptions have been renewed for feeding tube -Return to the ED or call EMS if symptoms return and/or worsen. Prescriptions/Referrals Prescriptions/Med Rec: New levothyroxine 30 mcg/mL solution 100 mcg feeding tube QDAY Qty: 150 0RF ascorbic acid (vitamin C) 500 mg/5 mL syrup 500 mg feeding tube QDAY 10 Days Qty: 50 0RF ezetimibe 10 mg Tablet 10 mg G-tube QDAY 30 Days Qty: 30 3RF losartan 25 mg Tablet 25 mg G-tube QDAY 30 Days Qty: 30 3RF levetiracetam [Keppra] 100 mg/mL solution 1,000 mg feeding tube BID Qty: 473 0RF Continued acetaminophen [Tylenol] 325 mg tablet 650 mg feeding tube Q4H PRN (Reason: pain) Qty: 60 0RF lidocaine 5 % adhesive patch,medicated 1 patch topical Q24H 30 Days Qty: 30 0RF Rx Instructions: leave on most painful area for up to 12 hrs docusate sodium [Colace] 100 mg capsule 100 mg PO Q12HR PRN (Reason: constipation ) Rx Instructions: Hold for loose stools Changed multivitamin [Daily Multi-Vitamin] Tablet 1 tab feeding tube QDAY 30 Days Qty: 30 0RF sennosides [senna] 8.6 mg tablet 8.6 mg feeding tube Q12H PRN (Reason: constipation) 30 Days Qty: 30 0RF amiodarone 200 mg tablet 200 mg feeding tube BID 30 Days Qty: 60 0RF amlodipine 5 mg tablet 5 mg feeding tube BID 30 Days Qty: 60 0RF Discontinued levetiracetam [Keppra] 1,000 mg tablet 1,000 mg PO BID Qty: 90 0RF levothyroxine 100 mcg capsule 100 mcg PO QDAY Qty: 180 0RF Rx Instructions: Give at-least 30 mins before breakfast ciprofloxacin HCl [Cipro] 500 mg tablet 500 mg PO BID MDD 2 Qty: 20 0RF ascorbic acid (vitamin C) 500 mg capsule 500 mg PO BID ezetimibe 10 mg tablet 10 mg PO .qday Patient Comments: TAKE 1 TABLET BY MOUTH EVERY DAY Referrals: Cayden Little MD [Primary Care Provider] - Patient/Caregiver Discharge Instructions Discharge Activity: as per physical therapy Education Materials: Hemorrhagic Stroke ..., Symptoms of Stroke, What Is Ischemic Stroke?, Bolus Tube Feeding, Continuous Tube Feeding, Tube Feeding Meds, What is Hemorrhagic Stroke? Print Language: Kiswahili Stand Alone Forms: [facility]e Award Info., Patient Portal Info Letter Discharge Order Discharge Orders: Discharge (Routine); Ordered 04/18/25 Ordered By: Indy Fajardo Quality Discharge Quality Measures VTE prophylaxis
== END 2025-04-21 11:50 | disposition home health service (06) | DRG 64 ==
LOC: SERX 10:32 → SERHOLD 16:59 → S2NX 19:28 → S3NX 04-18 07:52
PROVIDERS: Student in an Organized Health Care Education/Training Program; Admitting Provider Student in an Organized Health Care Education/Training Program; Emergency Provider Family Medicine; PCP Internal Medicine Hospice and Palliative Medicine; Visit Provider Internal Medicine
DX: I61.1 Nontraumatic intracerebral hemorrhage in hemisphere, cortical (principal); J18.9 Pneumonia, unspecified organism; G93.40 Encephalopathy, unspecified; N17.9 Acute kidney failure, unspecified; E44.0 Moderate protein-calorie malnutrition; E87.0 Hyperosmolality and hypernatremia; N39.0 Urinary tract infection, site not specified; G81.14 Spastic hemiplegia affecting left nondominant side; I69.398 Other sequelae of cerebral infarction; G40.909 Epilepsy, unspecified, not intractable, without status epilepticus; I48.91 Unspecified atrial fibrillation; Z93.1 Gastrostomy status; I12.9 Hypertensive chronic kidney disease with stage 1 through stage 4 chronic kidney disease, or unspecified chronic kidney disease; N18.9 Chronic kidney disease, unspecified; H91.90 Unspecified hearing loss, unspecified ear; E03.9 Hypothyroidism, unspecified; E83.52 Hypercalcemia; E78.00 Pure hypercholesterolemia, unspecified; E83.42 Hypomagnesemia; E86.1 Hypovolemia; E87.6 Hypokalemia; Z79.01 Long term (current) use of anticoagulants; Z79.899 Other long term (current) drug therapy; Z88.5 Allergy status to narcotic agent; Z88.1 Allergy status to other antibiotic agents; Z88.8 Allergy status to other drugs, medicaments and biological substances
CPT/HCPCS: 36415; 70450; 70551; 71045; 80048; 80053; 80069; 80307; 80329; 81001; 83605; 83735; 84100; 84439; 84443; 84484; 85025; 85610; 85730; 87040; 87081; 87811; 92526; 92610; 93005; 95813; 96361; 96365; 96367; 96375; 97163; 99291; 99292; J0456; J0696; J1953; J2405; J3475; J3480; J7030; J7050; J7070; J7120; J7999; A9270; G0480

== ENCOUNTER 2025-06-09 10:50 | Inpatient (IN) | payer MEDICARE, BC, SELFPAY ==
[2025-06-09] VITALS (8 sets, daily range): BP systolic 127–161; BP diastolic 84–98; PULSE 80–101; RESP 12–20; TEMP 36.4–36.9; O2SAT 92–97; BMI 23.3
--- NOTE | 2025-06-09 11:30 | PC.NURSE ---
pt brought in by ambulance due to accidental overdose by daughter through her gtube of keppra for sz. daughter stated that pt usually gets 10ml of keppra which is 1000mg but accidentally gave 20-30ml which would be about 2000-3000mg dose. poison controlled called and recommendation placed in notes. pt bs 105, pt is gcs of 15, pt has hx of stroke x3 and has deficit of left side weakness with left arm contractions and muffled/slurred speech. time of ingestion was 0945 this am. placed pt on monitor/pulse ox.
--- NOTE | 2025-06-09 11:37 | PD.EDADULT ---
ED General RME/HPI General Chief complaint: Overdose Stated complaint: POSSIBLE OVERDOSE Time Seen by Provider: 06/09/25 11:05 Arrival date/time: 06/09/25 10:50 RME / HPI RME / HPI narrative: 80 year old female with history of CVA, ICH, seizure disorder, A-fib, hypertension, CKD, s/p PEG tube, hypothyroidism presents to the ED for evaluation of possible overdose on Keppra today. Daughter reports patient receives 10 mls of Keppra morning and night. This morning was getting ready to give her medication and had an accidental mix up, possibly received one to two doses extra. States ~ 10 minutes after giving the medications, patient began to have mild shaking movement and concerned it may be due to possible overdose or seizures. Daughter states patient has not had any seizures or seizure-like activity since being discharged home 04/21/2025. In the ED, patient complains of nausea. No other associated symptoms or complaints reported. Denies fevers, chills, sweats. Denies chest pain, cough, shortness of breath. Denies nausea, vomiting. Denies dysuria, urinary frequency and urgency. Daughter additionally reports she has not given the patient Related Data Home Medications ?Medication ?Instructions ?Recorded ?Confirmed docusate sodium 100 mg capsule 100 mg PO Q12HR PRN constipation 12/14/24 04/14/25 (Colace) Previous Rx's ?Medication ?Instructions ?Recorded acetaminophen 325 mg tablet 650 mg (2 x 325 mg) feeding tube 04/19/25 (Tylenol) Q4H PRN pain #60 tabs amiodarone 200 mg tablet 200 mg feeding tube BID 30 days 04/19/25 #60 tabs amlodipine 5 mg tablet 5 mg feeding tube BID 30 days #60 04/19/25 tabs levothyroxine 30 mcg/mL oral 100 mcg (3.3333 mL) feeding tube 04/19/25 solution QDAY hypothyroidism #150 mL lidocaine 5 % topical patch 1 patch topical Q24H 30 days #30 ea 04/19/25 multivitamin (Daily Multi-Vitamin 1 tab feeding tube QDAY 30 days 04/19/25 tablet) #30 tabs sennosides 8.6 mg tablet (senna) 8.6 mg feeding tube Q12H PRN 04/19/25 constipation 30 days #30 tabs ezetimibe 10 mg tablet 10 mg G-tube QDAY 30 days #30 tabs 04/20/25 levetiracetam 100 mg/mL oral 1,000 mg (10 mL) feeding tube BID 04/20/25 solution (Keppra) #473 mL losartan 25 mg tablet 25 mg G-tube QDAY 30 days #30 tabs 04/20/25 Allergies Allergy/AdvReac Type Severity Reaction Status Date / Time codeine Allergy Verified 06/09/25 11:10 pravastatin Allergy Verified 06/09/25 11:10 promethazine (From Phenergan) Allergy Verified 06/09/25 11:10 sulfamethoxazole (From Allergy Verified 06/09/25 11:10 Bactrim) trimethoprim (From Bactrim) Allergy Verified 06/09/25 11:10 Review of Systems Review of Systems Systems Reviewed: All systems reviewed, normal except as documented Past Medical History Past Medical History NEUROLOGIC: Positive Cerebrovascular Accident, Seizures and Epilepsy CARDIAC: Positive Atrial Fibrillation, Hypercholesterolemia, Edema (LEFT ARM) and Hypertension ENT: Positive Deafness ENDOCRINE: Positive Hypothyroidism OTHER HISTORY: Positive Hospitalization Family History FAMILY HISTORY: Positive Family Respiratory Disorders, Family Cardiac Disorders and Family Gastrointestinal Problems Surgical History SURGICAL: Positive Gastrostomy; Negative Pacemaker, Endocrine Surgery, Thyroidectomy, Ear Surgery or Abdominal Surgery Social History SMOKING STATUS: Never smoker ED Exam Narrative Physical exam: GENERAL APPEARANCE: alert and oriented x 4, well-developed, well-nourished, no acute distress HEENT: Normocephalic, atraumatic; pupils equal, round, reactive to light; EOMI; mucous membranes pink, moist; oropharynx clear NECK: Supple LUNGS: CTABL; no wheezes, no rales, no rhonchi HEART: Regular rate, regular rhythm; normal S1, S2; no murmurs ABDOMEN: non distended; normal BS; soft, no tenderness, no guarding, no rebound; no masses, no organomegaly, no hernia BACK: no CVA tenderness EXTREMITIES: contracture of the left upper extremity; atraumatic; no edema NEUROLOGIC: awake; alert and oriented x4; cranial nerves II-XII grossly intact; left hemiplegia with contracture of the left upper extremity PSYCHIATRIC: appropriate mood and affect SKIN: warm, dry, normal color; no rashes Course Quality Measures none Orders Category Date Time Status CBC Stat Lab 06/09/25 12:27 Completed CMP [Comprehensive Metabolic Panel] Stat Lab 06/09/25 12:27 Completed Free T4 (Free Thyroxine) Stat Lab 06/09/25 12:27 Completed Lactate (Lactic Acid) Stat Lab 06/09/25 12:27 Completed Lactic Acid, 3 HR Stat Lab 06/09/25 17:00 Completed Lipase Stat Lab 06/09/25 12:27 Completed TSH [Thyroid Stimulating Hormone] Stat Lab 06/09/25 12:27 Completed UA, C/S IF [Urinalysis, C/S if Indicated] Stat Lab 06/09/25 11:45 Ordered Levothyroxine Sodium [Synthroid] Med 06/09/25 13:30 Discontinued 100 mcg PO X1 ONE Ondansetron Odt [Zofran Odt] Med 06/09/25 11:45 Discontinued 4 mg PO X1 ONE Sodium Chloride 0.9% 1000 ml [Ns] 1,000 ml Med 06/09/25 13:14 Discontinued IV 999 mls/hr Sodium Chloride 0.9% 1000 ml [Ns] 1,000 ml Med 06/09/25 16:13 Discontinued IV 999 mls/hr Vital Signs Vital signs: Vital Signs Temperature 97.8 F 06/09/25 11:04 Pulse Rate 98 06/09/25 11:04 Respiratory Rate 18 06/09/25 11:04 Blood Pressure 151/86 H 06/09/25 11:04 Pulse Oximetry (%) 95 06/09/25 11:04 Oxygen Delivery Method Room Air 06/09/25 11:04 Pulse ox is 95% on room air which is adequate. Discharge Plan Plan Patient Disposition: HOME (Self Care) Prescriptions/Referrals Prescriptions/Med Rec: No Action multivitamin [Daily Multi-Vitamin] Tablet 1 tab feeding tube QDAY 30 Days Qty: 30 0RF sennosides [senna] 8.6 mg tablet 8.6 mg feeding tube Q12H PRN (Reason: constipation) 30 Days Qty: 30 0RF acetaminophen [Tylenol] 325 mg tablet 650 mg feeding tube Q4H PRN (Reason: pain) Qty: 60 0RF amiodarone 200 mg tablet 200 mg feeding tube BID 30 Days Qty: 60 0RF amlodipine 5 mg tablet 5 mg feeding tube BID 30 Days Qty: 60 0RF lidocaine 5 % adhesive patch,medicated 1 patch topical Q24H 30 Days Qty: 30 0RF Rx Instructions: leave on most painful area for up to 12 hrs levothyroxine 30 mcg/mL solution 100 mcg feeding tube QDAY Qty: 150 0RF ezetimibe 10 mg Tablet 10 mg G-tube QDAY 30 Days Qty: 30 3RF losartan 25 mg Tablet 25 mg G-tube QDAY 30 Days Qty: 30 3RF levetiracetam [Keppra] 100 mg/mL solution 1,000 mg feeding tube BID Qty: 473 0RF docusate sodium [Colace] 100 mg capsule 100 mg PO Q12HR PRN (Reason: constipation ) Rx Instructions: Hold for loose stools Referrals: Cayden Little MD [Primary Care Provider] - In 1 week Problem List Clinical Impression: Hypothyroidism, Low thyroxine (T4) level, Accidental drug ingestion Patient/Caregiver Discharge Instructions Education Materials: ED Hypothyroidism Print Language: Arabic Stand Alone Forms: Kaycee Award Info., Patient Portal Info Letter [facility] Narrative Sign out note: 1800: Patient signed out to Dr. Madison pending IV fluids and repeat lactic. [facility] hospital course: IBrittney am scribing for and in the presence of Dr. Lobo. Clinical Information Provided by patient and family (daughter provides hx ) Medical Records Reviewed [facility] I reviewed admission from 04/13/2025 through 04/21/2025 for hemorrhagic CVA and acute encephalopathy. During that time, neurology recommended transfer for neurosurgery. However family had declined any surgical interventions and was admitted here. I reviewed notes from neurologist Dr. Rolon where she recommends continuing with Keppra and Ativan. In the ED today, the daughter is requesting we do not give Ativan. States when she last received Ativan during her admission she was difficult to arouse for three days . Meds/Rx Considered, not Ordered None Labs/Rad/Tests considered, not Ordered None Chronic Illness/Social Conditions which may negatively complicate care or outcome(s)-explain: CVA/aphasic EKG EKG not done Lab Interpretation Labs: interpreted by me and see narrative above Lab(s) interpretation(s): No leukocytosis Lactic acid initially 2.7 and repeat is 4.1 TSH > 150.00 and free T4 is low Imaging Imaging interpretation: none Medication Administration(s) Medication Administration History Discontinued Medications Sodium Chloride (Ns) 1,000 mls @ 999 mls/hr IV .Q1H1M ONE Stop: 06/09/25 14:14 Last Infusion: 06/09/25 15:29 Dose: Infused Documented By: Admin: 06/09/25 14:01 Dose: 999 mls/hr Documented By: ASHLEY Sodium Chloride (Ns) 1,000 mls @ 999 mls/hr IV .Q1H1M ONE Stop: 06/09/25 17:13 Last Admin: 06/09/25 17:01 Dose: 999 mls/hr Documented By: GRANT Levothyroxine Sodium (Levothyroxine Sodium 100 Mcg Tablet) 100 mcg PO X1 ONE Stop: 06/09/25 13:31 Last Admin: 06/09/25 15:24 Dose: 100 mcg Documented By: GRANT Ondansetron HCl (Ondansetron Odt 4 Mg Tabrap) 4 mg PO X1 ONE; Protocol Stop: 06/09/25 11:46 Last Admin: 06/09/25 11:56 Dose: 4 mg Documented By: GRANT See above Diagnosis Most likely dx, and/or detailed dx discussion: Hypothyroidism Low thyroxine level Accidental drug ingestion
[2025-06-09] MEDS: ONDANSETRON ODT 4 MG TABRAP PO (11:56)
[2025-06-09 12:34] LABS: Lactate (Lactic Acid) 2.7 mMol/L (0.4-2.0)
[2025-06-09 12:42] LABS: Basophils # (Auto) 0.1 Thou/mm3 (0.0-0.2); Basophils % (Auto) 1 % (0-2.5); Eosinophils # (Auto) 0.2 Thou/mm3 (0.0-0.5); Eosinophils % (Auto) 2 % (0-10); Hematocrit 48.2 % (36.0-46.0); Hemoglobin 16.5 g/dL (12.0-16.0); Immature Granulocytes Auto 0.03 Thou/mm3 (0.00-0.00); Lymphocytes # (Auto) 1.7 Thou/mm3 (1.0-4.8); Lymphocytes % (Auto) 18 % (10-50); Mean Corpuscular HGB Conc 34.2 g/dl (31.0-37.0); Mean Corpuscular Hemoglobin 30.6 pg (25.0-35.0); Mean Corpuscular Volume 89 fL (80-100); Monocytes # (Auto) 0.6 Thou/mm3 (0.0-0.8); Monocytes % (Auto) 6 % (0-12); Neutrophils # (Auto) 6.9 Thou/mm3 (1.8-7.7); Neutrophils % (Auto) 72 % (37-80); Nucleated Red Blood Cell # 0.00 Thou/mm3 (0.00-0.00); Nucleated Red Blood Cell % 0 /100 WBC (0); Platelet Count 336 Thou/mm3 (140-440); RDW Standard Deviation 45.0 fL (36.4-46.3); Red Blood Count 5.39 Miln/mm3 (4.00-5.20); White Blood Count 9.6 Thou/mm3 (3.6-11.0)
[2025-06-09 13:08] LABS: Alanine Aminotransferase 45 U/L (10-49); Albumin, Serum 4.3 gm/dL (3.4-4.8); Albumin/Globulin Ratio 1.1 (1.2-2.2); Alkaline Phosphatase 146 U/L (46-116); Anion Gap 12 (7-16); Aspartate Amino Transferase 51 U/L (0-34); BUN/Creatinine Ratio 18 Ratio (12-20); Bilirubin,Total 0.5 mg/dL (0.3-1.2); Blood Urea Nitrogen 24 mg/dL (9-23); Calcium 10.3 mg/dL (8.3-10.6); Calcium (Corrected) 10.3 mg/dL (8.5-10.1); Carbon Dioxide 25.3 mMol/L (20.0-31.0); Chloride 100 mMol/L (98-107); Creatinine (Component) 1.3 mg/dL (0.6-1.3); Estimated Creatinine Clearance 27.3 mL/min (>60); Free T4 (Free Thyroxine) 0.30 ng/dL (0.89-1.76); Globulin 3.9 gm/dL (2.3-3.5); Glucose 122 mg/dL (74-106); Lipase 94 U/L (12-53); Osmolality,Calculated 278 (275-295); Potassium 4.1 mMol/L (3.4-5.1); Sodium 137 mMol/L (136-145); Thyroid Stimulating Hormone > 150.00 uIU/mL (0.55-4.78); Total Protein 8.2 gm/dL (5.7-8.2); eGFR 42 See Note
[2025-06-09] MEDS: SODIUM CHLORIDE 0.9% 1000 ML 1,000 ML 999 ML IV ×2 (14:01→17:01)
[2025-06-09] MEDS: LEVOTHYROXINE SODIUM 100 MCG TABLET PO (15:24)
[2025-06-09 15:31] LABS: Reflex Lactate? Y
--- NOTE | 2025-06-09 16:48 | PC.CC ---
Abida CARCAMO was consulted by bedside LEEROY Benoit regarding providing resources for in-home supportive services. Abida CARCAMO met at bedside with patient's daughter Cat to provider her with [facility] Resource Guide specifically In-Home Supportive Services. Per daughter patient is already receiving [facility] but it is not enough as patient is only receiving home health once a week. CARLOS ALBERTO [facility] and was also provided with other [employer] information.
[2025-06-09 17:36] LABS: Lactic Acid, 3 HR 4.1 mMol/L (0.4-2.0)
--- NOTE | 2025-06-09 18:06 | PD.EDADDENDU ---
Emergency Room Addendum <Kamilah Reno - Last Filed: 06/09/25 22:11> Addendum Narrative: I took over the care from previous shift physician at 6 PM on 06/09/2025. See previous notes for complete H & P and ED course. I reviewed all diagnostic test results. My interpretation of the EKG is: Sinus rhythm (95 bpm) with nonspecific ST-T changes. Jay Jay Madison MD My interpretation of the chest x-ray is NAD. Blood tests and urine tests Covid/Influenza: Negative. Diagnoses include: Hypothyroidism, Low thyroxine (T4) level, Accidental drug ingestion. Treatment here included Magnesium sulfate 2 G, Zofran 4 mg, IVF. I discussed the case with our hospitalist. About the presentation and exam and diagnostics and treatments here. And need of further care in the hospital. Will accept the patient. Jay Jay Madison MD <Jay Jay Madison MD - Last Filed: 06/09/25 22:22> Addendum Narrative: I took over the care from previous shift physician, Dr. Lobo, at 6 PM on 06/09/2025. See previous notes for complete H & P and ED course. I reviewed all diagnostic test results. My interpretation of the EKG is: Sinus rhythm (95 bpm) with nonspecific ST-T changes. My interpretation of the chest x-ray is NAD. Blood tests remarkable for elevated TSH, low T4 level, hypomagnesemia, and elevated lactic acid. UA showed RBC and WBC and bacteria. Covid/Influenza: Negative. Diagnoses include: Myxedema coma Accidental Keppra overdose Hypomagnesemia Elevated lactic acid Treatment here included Levothyroxine, magnesium sulfate 2 G, Zofran 4 mg, IVF. Patient remained stable. I discussed the case with our hospitalist. About the presentation and exam and diagnostics and treatments here. And need of further care in the hospital. Will accept the patient. Jay Jay Madison MD
--- NOTE | 2025-06-09 18:17 | XR_ITS ---
Examination: AP chest single view TECHNIQUE: AP portable upright chest single view Date and time: June 09, 2025 1834 hours INDICATIONS: Shortness of breath today. FINDINGS: No significant cardiac enlargement. No pneumonia or pulmonary edema. Prominent osteopenia IMPRESSION: No active disease
[2025-06-09 18:29] LABS: Collection Type, Urine Clean Catch; RBC,Urine 0 /hpf (0-3)
[2025-06-09 18:59] LABS: Bacteria,Urine Rare; Bilirubin,Urine Negative (Negative); Blood,Urine Negative (Negative); Clarity,Urine Clear (Clear/Hazy); Color,Urine Yellow (Lt Yel-Yel); Culture Indicated,Urine Contaminated; Glucose, Urine Negative (Negative); Hyaline Casts,Urine < 1 /hpf (0-1); Ketones,Urine Negative (Negative); Leukocyte Esterase,Urine Positive (Negative); Nitrite,Urine Negative (Negative); PH,Urine 6.0 (5.0-7.0); Protein,Urine 1+ (Neg - Trace); Specific Gravity,Urine 1.024 (1.001-1.035); Squamous Epithelial Cell,Urine 11 /hpf (0-5); Urobilinogen,Urine Negative mg/dL (0.0-1.0); WBC,Urine 23 /hpf (0-5)
--- NOTE | 2025-06-09 19:12 | PC.NURSE ---
son at bedside
[2025-06-09 19:49] LABS: B-Type Natriuretic Peptide 76 pg/mL (0-100)
[2025-06-09 20:12] LABS: Bilirubin,Direct 0.1 mg/dL (0.0-0.3); Creatine Kinase 82 U/L (34-171); Magnesium 1.4 mg/dL (1.6-2.6); Procalcitonin 0.14 ng/ml (0.0-0.49); Troponin I < 0.020 ng/mL (0.0-0.045)
[2025-06-09] MEDS: Magnesium Sulfate 2 GM Ivpb 2 GM/50 ML BAG IV (20:47)
[2025-06-09 22:00] LABS: Lactate (Lactic Acid) 2.7 mMol/L (0.4-2.0)
--- NOTE | 2025-06-09 22:05 | ESHP_ITS ---
Documentation for date of: 06/09/25 [facility] History of Present Illness Chief complaint: Possible Keppra overdose, Severe Hypothyroidsim History of present illness: Ms. 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 She presents after her daughter accidentally administered 1?2 extra doses of Keppra. Approximately 10 minutes later, the patient developed mild, intermittent right-sided twitching, which the daughter identified as seizure activity. Review of prior records, however, indicates that the patient had similar right- sided jerking during her prior admission in April 2025, which was attributed to muscle spasm or focal seizure activity at the time. On today?s exam, the movements appear more consistent with muscle spasm or myoclonic jerks, and not generalized convulsive activity. No loss of consciousness, tonic-clonic activity, or post-ictal state observed. In the ED, patient was alert and oriented. Labs revealed TSH >150, low free T4, magnesium 1.4, and lactate rising from 2.7 to 4.1 despite IV fluids. A PO dose of levothyroxine was given prior to steroids. Medication reconciliation is pending. Patient is PEG dependent and NPO. She also reports left ear pain, worsened by yawning; TMJ exam and otoscopic exam were unremarkable. Past Medical History: * Ischemic stroke with hemorrhagic conversion (10/2024) ? chronic left hemiplegia * Seizure disorder (with prior EEG-confirmed PLEDs) * Atrial fibrillation (not on anticoagulation) * Chronic kidney disease, stage 3 * PEG tube dependency * Hypothyroidism (off medications for ~2 months) * Hypertension Surgical History: * PEG tube placement (10/2024) Allergies: * Codeine, Pravastatin, Promethazine, Bactrim Family History: * Positive for stroke, diabetes, and heart disease Social History: * Never smoker, denies alcohol or drug use * Lives at home with daughter as caregiver Exam Vital Signs Temp Pulse Resp BP Pulse Ox O2 Del Method 98.5 F 100 19 135/91 H 92 L Room Air 06/09/25 19:15 06/09/25 19:15 06/09/25 19:15 06/09/25 19:15 06/09/25 19:15 06/09/25 19:15 Narrative Exam General: Elderly, cachectic female, alert, oriented to self and place Skin: Warm, dry, no rashes, no edema HEENT: Normocephalic, atraumatic. Mild tenderness reported over left TMJ area, especially with yawning. No erythema, swelling, or deformity. TMJ exam without crepitus or dislocation. Otoscopic exam: Tympanic membranes intact bilaterally, no erythema, bulging, fluid, or cerumen impaction. No evidence of acute otitis media or externa. Eyes: PERRL, no scleral icterus Mouth: Mucous membranes moist Neck: Supple, no JVD, no lymphadenopathy Lungs: Clear to auscultation bilaterally Cardiovascular: Regular rate and rhythm, no murmurs, rubs, or gallops Abdomen: Soft, non-tender, non-distended. PEG tube in place, clean and intact. Extremities: No edema, pulses 2+ throughout Neuro: * Alert, responds slowly but appropriately * Motor: 0/5 strength in left upper and lower extremities (chronic), 5/5 on right * Sensation intact bilaterally * No facial droop * Intermittent myoclonic twitching noted in right arm/hand Results: Labs 06/09/25 12:27 06/09/25 12:27 Labs: Short CBC 06/09/25 Range/Units 12:27 WBC 9.6 (3.6-11.0) Thou/mm3 Hgb 16.5 H (12.0-16.0) g/dL Hct 48.2 H (36.0-46.0) % Plt Count 336 (140-440) Thou/mm3 BMP 06/09/25 12:27 Sodium 137 Potassium 4.1 Chloride 100 Carbon Dioxide 25.3 BUN 24 H Creatinine 1.3 Glucose 122 H Calcium 10.3 Cardiac Enzymes 06/09/25 Range/Units 18:20 Total Creatine Kinase 82 (34-171) U/L Troponin I < 0.020 (0.0-0.045) ng/mL Liver Function 06/09/25 06/09/25 Range/Units 12:27 18:20 Total Bilirubin 0.5 (0.3-1.2) mg/dL Direct Bilirubin 0.1 (0.0-0.3) mg/dL AST 51 H (0-34) U/L ALT 45 (10-49) U/L Alkaline Phosphatase 146 H (46-116) U/L Albumin 4.3 (3.4-4.8) gm/dL Urine 06/09/25 Range/Units 18:06 Urine Color Yellow (Lt Yel-Yel) Urine Clarity Clear (Clear/Hazy) Urine pH 6.0 (5.0-7.0) Ur Specific Hosmer 1.024 (1.001-1.035) Urine Protein 1+ A (Neg - Trace) Urine Glucose (UA) Negative (Negative) Quality Measures Quality Measures none Advance care planning discussed with:: patient and child Medications Home Medications and Allergies Allergies Allergy/AdvReac Type Severity Reaction Status Date / Time codeine Allergy Verified 06/09/25 11:10 pravastatin Allergy Verified 06/09/25 11:10 promethazine (From Phenergan) Allergy Verified 06/09/25 11:10 sulfamethoxazole (From Allergy Verified 06/09/25 11:10 Bactrim) trimethoprim (From Bactrim) Allergy Verified 06/09/25 11:10 Visit Medications Acetaminophen (Acetaminophen Supp 650 Mg Supp) 650 mg ME Q6HR PRN PRN Reason: Fever > 100.4 Stop: 07/09/25 21:16 Magnesium Sulfate (Magnesium Sulfate Ivpb) 2 gm in 50 mls @ 25 mls/hr IV X1 ONE Stop: 06/09/25 22:14 Last Admin: 06/09/25 20:47 Dose: 25 mls/hr Ondansetron HCl (Ondansetron Inj 2 Mg/Ml Inj 2 Ml) 4 mg IVP Q6H PRN; Protocol PRN Reason: NAUSEA OR VOMITING Stop: 07/09/25 21:21 Pantoprazole Sodium (Pantoprazole 40 Mg Tablet) 40 mg PO QDAY JOHNY Stop: 07/10/25 08:59 Discontinued Medications Sodium Chloride (Ns) 1,000 mls @ 999 mls/hr IV .Q1H1M ONE Stop: 06/09/25 14:14 Last Infusion: 06/09/25 15:29 Dose: Infused Sodium Chloride (Ns) 1,000 mls @ 999 mls/hr IV .Q1H1M ONE Stop: 06/09/25 17:13 Last Infusion: 06/09/25 19:32 Dose: Infused Levothyroxine Sodium (Levothyroxine Sodium 100 Mcg Tablet) 100 mcg PO X1 ONE Stop: 06/09/25 13:31 Last Admin: 06/09/25 15:24 Dose: 100 mcg Ondansetron HCl (Ondansetron Odt 4 Mg Tabrap) 4 mg PO X1 ONE; Protocol Stop: 06/09/25 11:46 Last Admin: 06/09/25 11:56 Dose: 4 mg Assessment & Plan Plan 80-year-old female with history of ischemic stroke with hemorrhagic conversion and chronic left hemiplegia, seizure disorder, atrial fibrillation (not anticoagulated), CKD, PEG dependence, and severe hypothyroidism off medications, presenting after accidental Keppra overdose with new right-sided twitching (likely myoclonus), rising lactate, and labs concerning for possible early myxedema. #Severe hypothyroidism, possible early myxedema Patient has been off levothyroxine for ~2 months due to medication access issues TSH >150, free T4 low, rising lactate (2.7 -> 4.1), Mildly lethargy concerning for early myxedema spectrum No hypothermia or hypotension; patient is currently alert and oriented but was acting different at home per her son Levothyroxine PO given in ED before steroids, which is not ideal due to possible myxedema Repeat thyroid labs pending, will initiate steroids once back and give a dose of iv Levothyroxine Unlikely to be Myxedema coma but will administer a stress dose of hydrcortisone. Plan: * Hold further thyroid hormone for now * Repeat: TSH, free T4, total T4, free T3 * Monitor lactate, electrolytes (Mg, Na, Ca), and clinical status closely #Myoclonic jerks #Seizure r/o Patient had mild, right shoulder jerks since morning of admission. No loss of consciousness, tonic-clonic activity, or postictal confusion Similar mild jerking noted in prior admission, likely muscle spasms or myoclonus Possibly in setting of Severe hypothyroidism On current exam, movements do not appear consistent with seizure activity, no other symptoms reported and jerks have been going for long period per patient. No EEG obtained yet; neuro exam otherwise non-focal aside from baseline deficits Plan: * Continue daily Keppra. * Do not administer Ativan due to prior adverse effects per family? Need to confirm the reason * Place seizure precautions, monitor closely * Consider neurology consult if symptoms remian after Levothyroxine administration. #Accidental overdose of Keppra Patient's daughter unsure if she had given patient an extra dose. Unlikely even if given one extra dose to cause serious side effects. Plan: * Monitor for worsening AMS or toxicity * Ensure med reconciliation is completed * Educate caregiver at discharge #Altered mental status, resolved Patient's daughter states patient was mildly altered, on exam patient was alert and oriented Patient initially lethargic but is at baseline currently Plan: * No imaging needed at this time unless clinical change # Asymptomatic bacteriuria patient denies urinary symptoms despite UA with WBCs Plan: * Monitor for symptoms * Do not treat unless clinical UTI develops * Await urine culture results (no antibiotics for now) #CKD Stage 3 Cr 1.3, eGFR ~27 Plan: * Renally dose medications * Avoid nephrotoxins * Monitor BMP #Left hemiplegia following cerebral infarction Chronic, unchanged Plan: * Continue supportive care, fall precautions * Physical therapy consult if appropriate #Otalgia, left ear Patient reports left ear pain, worsened by yawning TMJ exam normal, no dislocation or tenderness on palpation Otoscopic exam normal; no signs of infection or fluid Plan: * Supportive care only * Reassess if symptoms worsen * Warm compress as needed * No antibiotics indicated at this time # PEG tube dependence PEG site clean and intact Plan: * Meds via PEG only * NPO for safety * PEG flushes ordered #Atrial fibrillation, not anticoagulated Not anticoagulated due to prior ICH Plan: * Continue monitoring on telemetry * No anticoagulation inpatient * Cardiology follow-up outpatient #Hypertension BP stable Plan: * Hold antihypertensives unless BP persistently >160 * Resume if needed based on trends Health Maintenance: Code Status: Full Diet: NPO, meds via PEG Disposition: Telemetry DVT prophylaxis: SCDs GI prophylaxis: Protonix IV daily ----- Plan discussed with attending physician Dr. Ayush Johnson MD PGY-1 Internal Medicine Attending Provider Attestation/Addendum Attending Provider Attestation/Addendum After examination of the patient and review of the clinical data I feel that this patient needs admission to the hospital for further treatment/evaluation. Patient with PMHx and HPI as documented above was seen and evaluated in the ED, patient's presentation was critical and concerning for possible myxedema coma development as patient presented with very suppressed TSH level>150 and FT4<.3 and new onset of neurosymptoms exhibiting acute cognition changes along with continuous focal myoclonic jerks throughout the day. Patient was given a stress dose of hydrocortisone along with high-dose of IV levothyroxine in the ED and was initially being admitted to ICU but later as neurologic symptoms resolved patient was deemed stable for admission to telemetry unit. Will continue patient on IV levothyroxine and hydrocortisone, and follow-up on free T4 levels. Family education regarding significance of levothyroxine administration as prescribed was discussed in length. TOTAL CC TIME: 45 MIN TOTAL TIME: 45 Minutes of direct medical management and planning of care. I Matthew Kumar MD, attest that I was physically present for buenrostro portions of evaluation, and examined patient, labs and imagings and plan of care were discussed with IM residents team, and I agree with the findings and plans documented above.
[2025-06-09 22:53] LABS: Free T4 (Free Thyroxine) 0.40 ng/dL (0.89-1.76); Thyroid Stimulating Hormone 145.90 uIU/mL (0.55-4.78)
[2025-06-09 22:59] LABS: C-Reactive Protein 0.5 mg/dL (0.0-0.9)
[2025-06-09 23:09] LABS: Free T3 0.6 pg/mL (2.3-4.2)
[2025-06-09 23:19] LABS: T4 (Thyroxine) 1.3 mcg/dL (4.5-10.9)
[2025-06-09] MEDS: HYDROCORTISONE SOD SUCC INJ 100 MG VIAL IV (23:40)
[2025-06-10] VITALS (13 sets, daily range): BP systolic 116–139; BP diastolic 68–89; PULSE 34–79; RESP 11–97; TEMP 36.1–37; O2SAT 93–97; BMI 22.3
[2025-06-10 00:53] LABS: Reflex Lactate? Y
[2025-06-10 02:19] LABS: Lactic Acid, 3 HR 1.4 mMol/L (0.4-2.0)
--- NOTE | 2025-06-10 07:39 | PC.NURSE ---
Per pt. dtr Cody my mom eats at home, shes only on the peg tube overnight for nutrition. Dr. Barba aware and orders formal swallow evaluation. aware of other concerns pt. dtr has regarding home health and home situation. SS referral pending.
--- NOTE | 2025-06-10 08:34 | PC.NURSE ---
Per Alysa Williamson to give pt. meds orally per usual routine.
[2025-06-10] MEDS: PANTOPRAZOLE 40 MG TABLET PO (08:46)
[2025-06-10] MEDS: AMIODARONE HCL 200 MG TABLET GT ×2 (08:46→20:19)
[2025-06-10] MEDS: HYDROCORTISONE SOD SUCC INJ 100 MG VIAL 50 MG IV (08:49)
[2025-06-10] MEDS: levETIRAcetam LIQD 500 MG/5 ML UDC 1000 MG GT ×2 (08:49→20:20)
--- NOTE | 2025-06-10 09:55 | PC.NURSE ---
Called to Lab because AM labs were not drawn. quality lab technician is sending it auditor to draw pt. now.
[2025-06-10 10:48] LABS: Basophils # (Auto) 0.0 Thou/mm3 (0.0-0.2); Basophils % (Auto) 0 % (0-2.5); Eosinophils # (Auto) 0.0 Thou/mm3 (0.0-0.5); Eosinophils % (Auto) 0 % (0-10); Hematocrit 36.4 % (36.0-46.0); Hemoglobin 12.6 g/dL (12.0-16.0); Immature Granulocytes Auto 0.02 Thou/mm3 (0.00-0.00); Lymphocytes # (Auto) 0.8 Thou/mm3 (1.0-4.8); Lymphocytes % (Auto) 12 % (10-50); Mean Corpuscular HGB Conc 34.6 g/dl (31.0-37.0); Mean Corpuscular Hemoglobin 31.4 pg (25.0-35.0); Mean Corpuscular Volume 91 fL (80-100); Monocytes # (Auto) 0.2 Thou/mm3 (0.0-0.8); Monocytes % (Auto) 3 % (0-12); Neutrophils # (Auto) 5.5 Thou/mm3 (1.8-7.7); Neutrophils % (Auto) 85 % (37-80); Nucleated Red Blood Cell # 0.00 Thou/mm3 (0.00-0.00); Nucleated Red Blood Cell % 0 /100 WBC (0); Platelet Count 309 Thou/mm3 (140-440); RDW Standard Deviation 45.5 fL (36.4-46.3); Red Blood Count 4.01 Miln/mm3 (4.00-5.20); White Blood Count 6.5 Thou/mm3 (3.6-11.0)
[2025-06-10 11:31] LABS: Alanine Aminotransferase 29 U/L (10-49); Albumin, Serum 3.4 gm/dL (3.4-4.8); Albumin/Globulin Ratio 1.1 (1.2-2.2); Alkaline Phosphatase 94 U/L (46-116); Anion Gap 12 (7-16); Aspartate Amino Transferase 34 U/L (0-34); BUN/Creatinine Ratio 15 Ratio (12-20); Bilirubin,Total 0.5 mg/dL (0.3-1.2); Blood Urea Nitrogen 18 mg/dL (9-23); Calcium 9.1 mg/dL (8.3-10.6); Calcium (Corrected) 9.6 mg/dL (8.5-10.1); Carbon Dioxide 21.6 mMol/L (20.0-31.0); Chloride 105 mMol/L (98-107); Creatinine (Component) 1.2 mg/dL (0.6-1.3); Estimated Creatinine Clearance 28.2 mL/min (>60); Globulin 3.0 gm/dL (2.3-3.5); Glucose 142 mg/dL (74-106); Magnesium 1.6 mg/dL (1.6-2.6); Osmolality,Calculated 281 (275-295); Phosphorous 3.3 mg/dL (2.4-5.1); Potassium 3.9 mMol/L (3.4-5.1); Sodium 139 mMol/L (136-145); Total Protein 6.4 gm/dL (5.7-8.2); eGFR 46 See Note
--- NOTE | 2025-06-10 13:26 | PC.SS ---
CONTEMPORARY OR MODERN DANCER conducted bedside contact with the patient conduct initial assessment and to discuss discharge planning.? At bedside with patient was daughter, Cat Arauz .? Information was obtained from patient?s daughter.? Patient resides at home with daughter.? Patient is in possession of PEG tube.? Feeding pump utilized by the patient.? Patient is in possession of go lyft and hospital bed.? [facility] Patient utilizes a wheelchair to assist with mobility.? Patient currently bedbound.? Patient does not require use of home oxygen.? Patient requires assistance with the completion of ADL?s.? Patient?s family members assist the patient with ADL completion.? Patient?s daughter to pursue private hospice patient care secretary services.? Patient?s surrogate medical decision maker is daughter. Cat Arauz.? Patient?s PCP is Dr. Little.? Patient?s bowling ball molder is Dr. Walker.? Patient?s neurologist is Dr. Guthrie.? Patient?s structural engineering drafting officer is Dr. Salmon.? [facility] is utilized for medication services.? CONTEMPORARY OR MODERN DANCER discussed discharge plan with patient?s daughter.? Discharge plan is for the patient to return home with home health.? Patient is aligned with [facility].? Patient?s daughter would like to resume services with [facility].? Patient will require social media marketing manager to assist with transport at the time of discharge.? No further discharge needs identified by the patient.? No further intervention required at this time, social media marketing manager will be available to address any further concerns.? Next of Kin: Cat Castillo D/C Plan: Home
--- NOTE | 2025-06-10 14:43 | PC.SS ---
Rounding Note: Plan is to begin nocturnal feeds via PEG tube. Possible d/c home tomorrow with [facility].
--- NOTE | 2025-06-10 15:27 | PC.DIETICIAN ---
Nutrition prescription Osmolite 1.5 at 80 ml/hr x 12 hrs via PEG tube by pump (8pm to 8am). If no IV fluids, water flushes of 60 ml/hr x 12 hrs (or per MD).
--- NOTE | 2025-06-10 15:58 | ESPR_ITS ---
<Statement entered by Tessy Barba MD - 06/10/25 19:57> I have reviewed the note and agree with the resident's assessment & plan with exceptions as below. I have personally reviewed labs, imaging, home meds/prior records, examined the patient, formulated and discussed management plan with the IM team. Patient examined at bedside today. Patient's family present at bedside who reported that they did not give the patient their Synthroid due to not being able to give it. Will continue with tube feeds at night, give oral Synthroid at this time. Anticipate discharge within the next 24 to 48 hours. Will order T4 tomorrow. Repeat hematology and chemistry in AM. Tessy Barba, PGY-2 Internal Medicine Documentation for date of: 06/10/25 Subjective Subjective Interval history: No acute events overnight. Vitals and labs reviewed. Patient seen and examined at bedside with daughter present. Patient denies any new complaints/concerns, states she was tired. Patient denies fever, chest pain, shortness of breath. Exam Vital Signs Temp Pulse Resp BP Pulse Ox O2 Del Method 97.0 F 73 16 124/72 97 Room Air 06/10/25 12:06/10/25 12:06/10/25 12:00 06/10/25 12:00 06/10/25 12:06/10/25 12:00 Narrative Exam General: Elderly, cachectic female, alert, oriented to self and place Skin: Warm, dry, no rashes, no edema HEENT: Normocephalic, atraumatic. Mild tenderness reported over left TMJ area, especially with yawning. No erythema, swelling, or deformity. TMJ exam without crepitus or dislocation. Otoscopic exam: Tympanic membranes intact bilaterally, no erythema, bulging, fluid, or cerumen impaction. No evidence of acute otitis media or externa. Eyes: PERRL, no scleral icterus Mouth: Mucous membranes moist Neck: Supple, no JVD, no lymphadenopathy Lungs: Clear to auscultation bilaterally Cardiovascular: Regular rate and rhythm, no murmurs, rubs, or gallops Abdomen: Soft, non-tender, non-distended. PEG tube in place, clean and intact. Extremities: No edema, pulses 2+ throughout Neuro: * Alert, responds slowly but appropriately * Motor: 0/5 strength in left upper and lower extremities (chronic), 5/5 on right * Sensation intact bilaterally * No facial droop * Intermittent myoclonic twitching noted in right arm/hand Objective Labs 06/11/25 05:41 06/11/25 05:41 Labs: Laboratory Results - last 24 hr 06/09/25 06/09/25 06/09/25 17:00 18:06 18:20 WBC RBC Hgb Hct MCV MCH MCHC RDW Std Deviation Plt Count Neut % (Auto) Lymph % (Auto) Warrick % (Auto) Eos % (Auto) Baso % (Auto) Neut # (Auto) Lymph # (Auto) Warrick # (Auto) Eos # (Auto) Baso # (Auto) Immature Gran # (Auto) Absolute Nucleated RBC Immature Gran % Nucleated RBC % Sodium Potassium Chloride Carbon Dioxide Anion Gap BUN Creatinine Estim Creat Clear Calc eGFR BUN/Creatinine Ratio Glucose Calculated Osmolality Lactic Acid 4.1 H* Calcium Corrected Calcium Phosphorus Magnesium 1.4 L Total Bilirubin Direct Bilirubin 0.1 AST ALT Alkaline Phosphatase Total Creatine Kinase 82 Troponin I < 0.020 C-Reactive Prot, Quant 0.5 B-Natriuretic Peptide 76 Total Protein Albumin Globulin Albumin/Globulin Ratio Procalcitonin 0.14 TSH Free T4 Thyroxine (T4) Free T3 pg/dL Ur Collection Type Clean Catch Urine Color Yellow Urine Clarity Clear Urine pH 6.0 Ur Specific Leeds 1.024 Urine Protein 1+ A Urine Glucose (UA) Negative Urine Ketones Negative Urine Blood Negative Urine Nitrite Negative Urine Bilirubin Negative Urine Urobilinogen (Auto) Negative Ur Leukocyte Esterase Positive Urine RBC 0 Urine WBC 23 H Ur Squamous Epith Cells 11 H Urine Bacteria Rare Hyaline Casts < 1 Ur Culture Indicated? Contaminated 06/09/25 06/09/25 06/10/25 21:36 22:14 02:15 WBC RBC Hgb Hct MCV MCH MCHC RDW Std Deviation Plt Count Neut % (Auto) Lymph % (Auto) Warrick % (Auto) Eos % (Auto) Baso % (Auto) Neut # (Auto) Lymph # (Auto) Warrick # (Auto) Eos # (Auto) Baso # (Auto) Immature Gran # (Auto) Absolute Nucleated RBC Immature Gran % Nucleated RBC % Sodium Potassium Chloride Carbon Dioxide Anion Gap BUN Creatinine Estim Creat Clear Calc eGFR BUN/Creatinine Ratio Glucose Calculated Osmolality Lactic Acid 2.7 H 1.4 Calcium Corrected Calcium Phosphorus Magnesium Total Bilirubin Direct Bilirubin AST ALT Alkaline Phosphatase Total Creatine Kinase Troponin I C-Reactive Prot, Quant B-Natriuretic Peptide Total Protein Albumin Globulin Albumin/Globulin Ratio Procalcitonin TSH 145.90 H* D Free T4 0.40 L Thyroxine (T4) 1.3 L Free T3 pg/dL 0.6 L Ur Collection Type Urine Color Urine Clarity Urine pH Ur Specific Leeds Urine Protein Urine Glucose (UA) Urine Ketones Urine Blood Urine Nitrite Urine Bilirubin Urine Urobilinogen (Auto) Ur Leukocyte Esterase Urine RBC Urine WBC Ur Squamous Epith Cells Urine Bacteria Hyaline Casts Ur Culture Indicated? 06/10/25 10:30 WBC 6.5 RBC 4.01 Hgb 12.6 D Hct 36.4 D MCV 91 MCH 31.4 MCHC 34.6 RDW Std Deviation 45.5 Plt Count 309 Neut % (Auto) 85 H Lymph % (Auto) 12 Warrick % (Auto) 3 Eos % (Auto) 0 Baso % (Auto) 0 Neut # (Auto) 5.5 Lymph # (Auto) 0.8 L Warrick # (Auto) 0.2 Eos # (Auto) 0.0 Baso # (Auto) 0.0 Immature Gran # (Auto) 0.02 H Absolute Nucleated RBC 0.00 Immature Gran % 0 Nucleated RBC % 0 Sodium 139 Potassium 3.9 Chloride 105 Carbon Dioxide 21.6 Anion Gap 12 BUN 18 Creatinine 1.2 Estim Creat Clear Calc 28.2 L eGFR 46 L BUN/Creatinine Ratio 15 Glucose 142 H Calculated Osmolality 281 Lactic Acid Calcium 9.1 Corrected Calcium 9.6 Phosphorus 3.3 Magnesium 1.6 Total Bilirubin 0.5 Direct Bilirubin AST 34 ALT 29 Alkaline Phosphatase 94 D Total Creatine Kinase Troponin I C-Reactive Prot, Quant B-Natriuretic Peptide Total Protein 6.4 Albumin 3.4 D Globulin 3.0 Albumin/Globulin Ratio 1.1 L Procalcitonin TSH Free T4 Thyroxine (T4) Free T3 pg/dL Ur Collection Type Urine Color Urine Clarity Urine pH Ur Specific Leeds Urine Protein Urine Glucose (UA) Urine Ketones Urine Blood Urine Nitrite Urine Bilirubin Urine Urobilinogen (Auto) Ur Leukocyte Esterase Urine RBC Urine WBC Ur Squamous Epith Cells Urine Bacteria Hyaline Casts Ur Culture Indicated? Quality Measures Quality Measures none Advance care planning discussed with:: patient and child Assessment & Plan Assessment Current Active Medications: Generic Name Dose Route Start Last Admin Trade Name Freq PRN Reason Stop Dose Admin Acetaminophen 650 mg 06/09/25 21:17 Acetaminophen Supp 650 Mg Supp CA 07/09/25 21:16 Q6HR PRN Fever > 100.4 Amiodarone HCl 200 mg 06/10/25 09:00 06/10/25 08:46 Amiodarone Hcl 200 Mg Tablet GT 07/10/25 08:59 200 mg BID JOHNY Administration Levetiracetam 1,000 mg 06/10/25 09:00 06/10/25 08:49 Levetiracetam Liqd 500 Mg/5 Ml Udc GT 07/10/25 08:59 1,000 mg BID JOHNY Administration Levothyroxine Sodium 100 mcg 06/11/25 06:00 Levothyroxine Sodium 100 Mcg Tablet PO 07/11/25 05:59 ACBR JOHNY Ondansetron HCl 4 mg 06/09/25 21:22 Ondansetron Inj 2 Mg/Ml Inj 2 Ml IVP 07/09/25 21:21 Q6H PRN NAUSEA OR VOMITING Protocol Pantoprazole Sodium 40 mg 06/10/25 09:00 06/10/25 08:46 Pantoprazole 40 Mg Tablet PO 07/10/25 08:59 40 mg QDAY JOHNY Administration Plan 80-year-old female with history of ischemic stroke with hemorrhagic conversion and chronic left hemiplegia, seizure disorder, atrial fibrillation (not anticoagulated), CKD, PEG dependence, and severe hypothyroidism off medications, presenting after accidental Keppra overdose with new right-sided twitching (likely myoclonus), rising lactate, and labs concerning for possible early myxedema. #Severe hypothyroidism, possible early myxedema Patient has been off levothyroxine for ~2 months due to medication access issues TSH >150, free T4 low, rising lactate (2.7 -> 4.1), Mildly lethargy concerning for early myxedema spectrum No hypothermia or hypotension; patient is currently alert and oriented but was acting different at home per her son Levothyroxine PO given in ED before steroids, which is not ideal due to possible myxedema Repeat thyroid labs pending, will initiate steroids once back and give a dose of iv Levothyroxine Unlikely to be Myxedema coma but will administer a stress dose of hydrcortisone. Repeat TSH 145 Discontinued hydrocortisone Plan: * Will start levothyroxine 100 mcg hcbr tomorrow, Fri AM * Monitor lactate, electrolytes (Mg, Na, Ca), and clinical status closely #Myoclonic jerks #Seizure r/o Patient had mild, right shoulder jerks since morning of admission. No loss of consciousness, tonic-clonic activity, or postictal confusion Similar mild jerking noted in prior admission, likely muscle spasms or myoclonus Possibly in setting of Severe hypothyroidism On current exam, movements do not appear consistent with seizure activity, no other symptoms reported and jerks have been going for long period per patient. No EEG obtained yet; neuro exam otherwise non-focal aside from baseline deficits Plan: * Continue daily Keppra. * Do not administer Ativan due to prior adverse effects per family? Need to confirm the reason * Place seizure precautions, monitor closely * Consider neurology consult if symptoms remian after Levothyroxine administration. #Accidental overdose of Keppra Patient's daughter unsure if she had given patient an extra dose. Unlikely even if given one extra dose to cause serious side effects. Plan: * Monitor for worsening AMS or toxicity * Ensure med reconciliation is completed * Educate caregiver at discharge #Altered mental status, resolved Patient's daughter states patient was mildly altered, on exam patient was alert and oriented Patient initially lethargic but is at baseline currently Plan: * No imaging needed at this time unless clinical change # Asymptomatic bacteriuria patient denies urinary symptoms despite UA with WBCs Plan: * Monitor for symptoms * Do not treat unless clinical UTI develops * Await urine culture results (no antibiotics for now) #CKD Stage 3 Cr 1.3, eGFR ~27 Plan: * Renally dose medications * Avoid nephrotoxins * Monitor BMP #Left hemiplegia following cerebral infarction Chronic, unchanged Plan: * Continue supportive care, fall precautions * Physical therapy consult if appropriate #Otalgia, left ear Patient reports left ear pain, worsened by yawning TMJ exam normal, no dislocation or tenderness on palpation Otoscopic exam normal; no signs of infection or fluid Plan: * Supportive care only * Reassess if symptoms worsen * Warm compress as needed * No antibiotics indicated at this time # PEG tube dependence PEG site clean and intact Plan: * Meds via PEG only * NPO for safety * PEG flushes ordered #Atrial fibrillation, not anticoagulated Not anticoagulated due to prior ICH Plan: * Continue monitoring on telemetry * Restarted home amiodarone 200 mg tube feed BID * Cardiology follow-up outpatient #Hypertension BP stable Plan: * Hold antihypertensives unless BP persistently >160 * Resume if needed based on trends Health Maintenance: Code Status: Full Diet: Cardiac, meds via PEG Disposition: Telemetry DVT prophylaxis: GI prophylaxis: Protonix IV daily Patient plan of care was discussed with the attending physician, Dr. Michelle & senior resident Dr. Freda Yeager MD PGY-1 Attending Provider Attestation/Addendum I have discussed and was present for the essential components of the history, physical examination, diagnosis, and treatment plan with the resident. I agree with the patient's care as documented by the resident and amended herein by me. Daniel Michelle DO. Although this document has been carefully reviewed, there may still be some phonetic and other typographical errors. These errors are purely grammatical due to imperfections in the software program and should not be construed in any way to compromise the substance of the patient's medical care during this visit.
--- NOTE | 2025-06-10 17:13 | PC.SS ---
DIRECTOR VALIDATION discussed with patient's daughter, Cat Arauz; that patient does not possess coverage for medical transport. Patient is currently bed bound and will require gurney transport. Daughter informed DIRECTOR VALIDATION that payment for medical transport out of budget for family. Daughter informed that web content & social media manager will assist arranging gurney transport for patient upon patient's discharge. Patient will need medical van gurney transport.
[2025-06-11] VITALS (7 sets, daily range): BP systolic 110–123; BP diastolic 59–81; PULSE 59–75; RESP 14–98; TEMP 36.1–36.6; O2SAT 93–98; BMI 22.8
[2025-06-11] MEDS: LEVOTHYROXINE SODIUM 100 MCG TABLET PO (05:03)
[2025-06-11 06:03] LABS: Basophils # (Auto) 0.0 Thou/mm3 (0.0-0.2); Basophils % (Auto) 1 % (0-2.5); Eosinophils # (Auto) 0.0 Thou/mm3 (0.0-0.5); Eosinophils % (Auto) 0 % (0-10); Hematocrit 39.5 % (36.0-46.0); Hemoglobin 13.3 g/dL (12.0-16.0); Immature Granulocytes Auto 0.01 Thou/mm3 (0.00-0.00); Lymphocytes # (Auto) 1.6 Thou/mm3 (1.0-4.8); Lymphocytes % (Auto) 22 % (10-50); Mean Corpuscular HGB Conc 33.7 g/dl (31.0-37.0); Mean Corpuscular Hemoglobin 31.3 pg (25.0-35.0); Mean Corpuscular Volume 93 fL (80-100); Monocytes # (Auto) 0.6 Thou/mm3 (0.0-0.8); Monocytes % (Auto) 9 % (0-12); Neutrophils # (Auto) 5.1 Thou/mm3 (1.8-7.7); Neutrophils % (Auto) 69 % (37-80); Nucleated Red Blood Cell # 0.00 Thou/mm3 (0.00-0.00); Nucleated Red Blood Cell % 0 /100 WBC (0); Platelet Count 283 Thou/mm3 (140-440); RDW Standard Deviation 47.4 fL (36.4-46.3); Red Blood Count 4.25 Miln/mm3 (4.00-5.20); White Blood Count 7.4 Thou/mm3 (3.6-11.0)
[2025-06-11 06:32] LABS: Alanine Aminotransferase 30 U/L (10-49); Albumin, Serum 3.5 gm/dL (3.4-4.8); Albumin/Globulin Ratio 1.1 (1.2-2.2); Alkaline Phosphatase 111 U/L (46-116); Anion Gap 12 (7-16); Aspartate Amino Transferase 39 U/L (0-34); BUN/Creatinine Ratio 16 Ratio (12-20); Bilirubin,Total 0.4 mg/dL (0.3-1.2); Blood Urea Nitrogen 21 mg/dL (9-23); Calcium 9.2 mg/dL (8.3-10.6); Calcium (Corrected) 9.6 mg/dL (8.5-10.1); Carbon Dioxide 22.9 mMol/L (20.0-31.0); Chloride 103 mMol/L (98-107); Creatinine (Component) 1.3 mg/dL (0.6-1.3); Estimated Creatinine Clearance 26.0 mL/min (>60); Free T4 (Free Thyroxine) 0.74 ng/dL (0.89-1.76); Globulin 3.1 gm/dL (2.3-3.5); Glucose 138 mg/dL (74-106); Magnesium 1.8 mg/dL (1.6-2.6); Osmolality,Calculated 280 (275-295); Phosphorous 2.5 mg/dL (2.4-5.1); Potassium 3.8 mMol/L (3.4-5.1); Sodium 138 mMol/L (136-145); Total Protein 6.6 gm/dL (5.7-8.2); eGFR 42 See Note
[2025-06-11] MEDS: levETIRAcetam LIQD 500 MG/5 ML UDC 1000 MG GT (08:49)
[2025-06-11] MEDS: PANTOPRAZOLE 40 MG TABLET PO (08:50)
[2025-06-11] MEDS: AMIODARONE HCL 200 MG TABLET GT (08:50)
--- NOTE | 2025-06-11 13:12 | PC.SS ---
Addendum entered by Terri Boyd 06/11/25 13:45: 1344-P/u ETA at 1830 by [facility]. Original Note: 1312-Pt is ready for d/c as per assigned RN. Pt will d/c to but will need transportation. ASW will attempt to arrange transportation with [facility] [employer].
--- NOTE | 2025-06-11 13:50 | ESDS_ITS ---
<Statement entered by Tessy Barba MD - 06/12/25 15:07> I have reviewed the note and agree with the resident's assessment & plan with exceptions as below. I have personally reviewed labs, imaging, home meds/prior records, examined the patient, formulated and discussed management plan with the IM team. Patient examined at bedside today. Patient continuing to improve and we will discharge at this time. We recommend patient to continue taking Synthroid per G-tube 1 equivalent of 100 mcg. We have also ordered a thyroid lab slip for patient to do with 1 week to monitor progression of thyroid labs. Patient was then discharged with the following instructions listed below. Tessy Barba, PGY-2 Internal Medicine Planned Discharge Date 06/11/25 DS: Providers Provider Date of admission: 06/09/25 21:17 Primary care physician: Cayden Little MD Admitting Provider: Matthew Kumar MD Attending Provider on Admission: Dustin Michelle DO Consults: 06/10/25 07:38 Referral Speech Therapy Routine Comment: 06/10/25 09:57 Referral Registered Dietitian Routine Comment: night time peg tube feeds Referral Wound Care Routine Comment: DTI to left heal Attending Provider on DC: Dustin Michelle DO Discharging Provider: Dustin Michelle DO DS: Diagnosis Problem List Completed Was Problem List Reviewed/Reconciled?: Yes Hospital Course Hospital Course Hospital course: 80-year-old female with history of ischemic stroke with hemorrhagic conversion and chronic left hemiplegia, seizure disorder, atrial fibrillation (not antic oagulated), CKD, PEG dependence, and severe hypothyroidism off medications, presented to [facility] after accidental Keppra overdose with new right-sided twitching (likely myoclonus), rising lactate, and labs concerning for possible early myxedema. Patient was admitted for abnormal labs r/o myxedema. Patient's daughter informed us that she had not been taking her levothyroxine for around a month due to access issues. Patient was given levothyroxine in the hospital with improvement in her thyroid labs along with improvement in her clinical status. Patient's keppra was resumed in hospital as well. Patient's right sided twitching resolved at discharge as well. Patient's daughter endorsed that she would be able to provide adequate care for her mother, also mentioning that she may have her brother and other home health help services help her care for her mother as well. Discharge Instructions Follow-up with your PCP within 1 week Follow up with the [facility] on Saturday [address] [place] [address] [phone] Take your medicines as prescribed Continue taking your Synthroid as prescribed via G-tube I recommend doing a thyroid labs outpatient within 1 week. I have printed a lab slip for you. Return to ED if your symptoms worsen or return Wound care: 1) Deep tissue injury to left heel: cleanse with wound cleanser, pat dry, apply betadine and cover with allyven dressing daily Negative heel pressure bilaterally 2) Stage 2 to left and right buttocks: cleanse with wound cleanser, pat dry, apply skin prep to wound beds and cover with allyven dressing daily Side to side repositions except for meals 3) Abrasion to lower back: skin repair cream/moisturizer daily 4) Gtube hypergranulation: cleanse with wound cleanser, pat dry, apply calcium alginate around tubing than secure with split gauze daily and PRN Admission Diagnosis #Severe hypothyroidism, possible early myxedema #Myoclonic jerks #Seizure r/o #Accidental overdose of Keppra #Altered mental status # Asymptomatic bacteriuria #CKD Stage 3 #Left hemiplegia following cerebral infarction #Otalgia, left ear # PEG tube dependence #Atrial fibrillation, not anticoagulated #Hypertension Patient plan of care was discussed with the attending physician, Dr. Michelle & senior resident Dr. Freda Yeager MD PGY-1 Time Spent with Patient Time attestation: Total time spent providing and/or coordinating discharge services: Time spent: Greater than 30 minutes Exam Vital Signs Temp Pulse Resp BP Pulse Ox O2 Del Method 97.0 F 74 15 117/75 98 Room Air 06/11/25 08:00 06/11/25 10:20 06/11/25 10:20 06/11/25 08:50 06/11/25 08:00 06/11/25 08:00 Narrative Exam General: Elderly, cachectic female, alert, oriented to self and place Skin: Warm, dry, no rashes, no edema HEENT: Normocephalic, atraumatic. Mild tenderness reported over left TMJ area, especially with yawning. No erythema, swelling, or deformity. TMJ exam without crepitus or dislocation. Otoscopic exam: Tympanic membranes intact bilaterally, no erythema, bulging, fluid, or cerumen impaction. No evidence of acute otitis media or externa. Eyes: PERRL, no scleral icterus Mouth: Mucous membranes moist Neck: Supple, no JVD, no lymphadenopathy Lungs: Clear to auscultation bilaterally Cardiovascular: Regular rate and rhythm, no murmurs, rubs, or gallops Abdomen: Soft, non-tender, non-distended. PEG tube in place, clean and intact. Extremities: No edema, pulses 2+ throughout Neuro: * Alert, responds slowly but appropriately * Motor: 0/5 strength in left upper and lower extremities (chronic), 5/5 on right * Sensation intact bilaterally * No facial droop * Intermittent myoclonic twitching noted in right arm/hand Discharge Plan Plan Patient Disposition: Home w/HOME HEALTH Patient condition on transfer: Stable Care Plan Goals: Discharge instructions Follow-up with your PCP within 1 week Follow up with the [facility] on Saturday [address] [place] [address] [phone] Take your medicines as prescribed Continue taking your Synthroid as prescribed via G-tube I recommend doing a thyroid labs outpatient within 1 week. I have printed a lab slip for you. Return to ED if your symptoms worsen or return Wound care: 1) Deep tissue injury to left heel: cleanse with wound cleanser, pat dry, apply betadine and cover with allyven dressing daily Negative heel pressure bilaterally 2) Stage 2 to left and right buttocks: cleanse with wound cleanser, pat dry, apply skin prep to wound beds and cover with allyven dressing daily Side to side repositions except for meals 3) Abrasion to lower back: skin repair cream/moisturizer daily 4) Gtube hypergranulation: cleanse with wound cleanser, pat dry, apply calcium alginate around tubing than secure with split gauze daily and PRN Prescriptions/Referrals Prescriptions/Med Rec: Continued amiodarone 200 mg tablet 200 mg feeding tube BID 30 Days Qty: 60 0RF amlodipine 5 mg tablet 5 mg feeding tube BID 30 Days Qty: 60 0RF levothyroxine 30 mcg/mL solution 100 mcg feeding tube QDAY Qty: 150 0RF ezetimibe 10 mg Tablet 10 mg G-tube QDAY 30 Days Qty: 30 3RF levetiracetam [Keppra] 100 mg/mL solution 1,000 mg feeding tube BID Qty: 473 0RF Held losartan 25 mg Tablet 25 mg G-tube QDAY 30 Days Qty: 30 3RF Hold Instructions: resume with pcp Discontinued multivitamin [Daily Multi-Vitamin] Tablet 1 tab feeding tube QDAY 30 Days Qty: 30 0RF Referrals: [facility] [Outside] Cayden Little MD [Primary Care Provider] - Outpatient Orders (i.e. Home Health, Labs, Imaging): Free T4 (Free Thyroxine) (Routine) Timeframe: 1 Week Location: Determined by Patient Ordered By: Tessy Barba Thyroid Stimulating Hormone (Routine) Timeframe: 1 Week Location: Determined by Patient Ordered By: Tessy Barba Patient/Caregiver Discharge Instructions Discharge Activity: activity as tolerated Education Materials: Levothyroxine tablets, Synthroid Oral Tablet 100 mcg, Nutrition for Wound Healing, Pressure Injury Dc, Wound Care Dc, ED Hypothyroidism Print Language: Upper Sorbian Stand Alone Forms: Kaycee Award Info., Patient Portal Info Letter Discharge Order Discharge Orders: Discharge (Routine); Ordered 06/11/25 Ordered By: Tessy Barba Quality Discharge Quality Measures none MD Attestestation MD Attestation I have discussed and was present for the essential components of the discharge history, physical examination, diagnosis, and discharge treatment plan with the resident. I agree with the patient's discharge care as documented by the resident and amended herein by me. Daniel Michelle DO. Patient stable for discharge today, much improved from admission. We stressed the importance of medication compliance to the patient's daughter who is her bending roll operator. Patient was restarted on her home dose levothyroxine liquid form which she will be given through her PEG tube. Patient was stable, afebrile and tolerating tube feeds at time of discharge home The patient understood all discharge instructions, all questions were answered satisfactorily. The patient was instructed to return to the Emergency Department is symptoms worsened or persisted. Although this document has been carefully reviewed, there may still be some phonetic and other typographical errors. These errors are purely grammatical due to imperfections in the software program and should not be construed in any way to compromise the substance of the patient's medical care during this visit.
--- NOTE | 2025-06-13 12:54 | PC.CC ---
Addendum entered by Yarely Newman RN 06/13/25 15:39: [facility] accepted the pt. Booked [facility]. Pending resume of care date. Original Note: pt is open with [facility]. HH referral sent on [facility]. Awaiting responses. Pending resume of care date.
--- NOTE | 2025-06-14 13:42 | PC.CM ---
Patient accepted by [facility]. Start of care date set for 06/15.
== END 2025-06-11 18:53 | disposition home health service (06) | DRG 917 ==
LOC: SERX 21:41 → SERHOLD 21:42 → S2NX 06-10 03:39
PROVIDERS: Emergency Medicine; Admitting Provider Student in an Organized Health Care Education/Training Program; Emergency Provider Emergency Medicine; PCP Internal Medicine Hospice and Palliative Medicine; Visit Provider Student in an Organized Health Care Education/Training Program
DX: T42.6X1A Poisoning by other antiepileptic and sedative-hypnotic drugs, accidental (unintentional), initial encounter (principal); E03.5 Myxedema coma; I69.354 Hemiplegia and hemiparesis following cerebral infarction affecting left non-dominant side; E87.20 Acidosis, unspecified; I48.91 Unspecified atrial fibrillation; G40.909 Epilepsy, unspecified, not intractable, without status epilepticus; I12.9 Hypertensive chronic kidney disease with stage 1 through stage 4 chronic kidney disease, or unspecified chronic kidney disease; M62.838 Other muscle spasm; N18.30 Chronic kidney disease, stage 3 unspecified; E83.42 Hypomagnesemia; R82.71 Bacteriuria; H92.02 Otalgia, left ear; Z93.1 Gastrostomy status; Z79.899 Other long term (current) drug therapy
CPT/HCPCS: 36415; 71045; 80053; 81001; 82248; 82550; 83605; 83690; 83735; 83880; 84100; 84145; 84436; 84439; 84443; 84481; 84484; 85025; 86140; 87040; 87400; 87811; 92526; 92610; 93005; 96127; 96361; 96365; 96366; 99284; J1720; J3475; J7030; Q0162; A9270

== ENCOUNTER → 2025-06-16 | Outpatient (CLI) | payer MEDICARE, BC, SELFPAY ==
[2025-06-16 17:13] LABS: Free T4 (Free Thyroxine) 1.11 ng/dL (0.89-1.76); Thyroid Stimulating Hormone 144.04 uIU/mL (0.55-4.78)
== END | disposition home or self-care (01) ==
LOC: COPL 13:56
PROVIDERS: PCP Internal Medicine Hospice and Palliative Medicine
DX: R79.89 Other specified abnormal findings of blood chemistry (principal)
CPT/HCPCS: 36415; 84439; 84443

== ENCOUNTER 2025-06-22 10:07 | Outpatient (AMB) | payer MEDICARE, BC, SELFPAY ==
--- NOTE | 2025-06-22 10:46 | PD.RESCLINIC ---
Vital Signs 06/22/25 10:47 BP 155/96 H Blood Pressure Source Automatic Cuff Blood Pressure Location Right Upper Arm Position Sitting Respiration 18 Pulse 104 H Pulse Source Monitor Temp 97.8 F Temp Source Temporal Artery Scan Pulse Oximetry (%) 94 L Oxygen Delivery Method Room Air Allergies/Meds Allergies & Medications Allergies codeine Allergy (Verified 06/09/25 11:10) pravastatin Allergy (Verified 06/09/25 11:10) promethazine (From Phenergan) Allergy (Verified 06/09/25 11:10) sulfamethoxazole (From Bactrim) Allergy (Verified 06/09/25 11:10) trimethoprim (From Bactrim) Allergy (Verified 06/09/25 11:10) MA Intake Visit Data Collection New Patient or Established: Established Patient (seen at [facility] within 3 years) Seen by Clinical Staff ONLY (RN/MA): No Reason for Visit:: FOLLOW UP Pain Present Currently: No PCP or OBGYN visit in last 3 months: Yes Do You Feel Safe at Home: Yes Authorities Contacted: N/A Smoking Status Smoking Status: Never smoker Immunization / Flu Flu Vaccine in the Last 12 Months: No Flu Vaccine Exclusion Criteria: No Exclusion Criteria Past Medical History Past Medical History NEUROLOGIC: Positive Cerebrovascular Accident, Seizures and Epilepsy; Negative Neurological Disorders, Transient Ischemic Attacks (TIA), Dementia, Alzheimer's Disease, Parkinson's Disease, Brain Tumor, Meningitis, Multiple Sclerosis, Cerebral Palsy, Amyotrophic Lateral Sclerosis (ALS/Mia Gehrig's), Guillain-Lowpoint Syndrome, Spina Bifida, Paralysis, Peripheral Neuropathy, Mederos's Palsy, Subdural Hematoma, Migraine, Head Trauma, Spinal Cord Injury or Traumatic Brain Injury CARDIAC: Positive Atrial Fibrillation, Hypercholesterolemia, Edema, Deep Vein Thrombosis and Hypertension; Negative Cardiac Disorders, Myocardial Infarction, Cardiac Arrhythmia, Angina, Heart Murmur, Coronary Artery Disease, Atherosclerotic Heart Disease, Peripheral Vascular Disease, Aneurysm, Congestive Heart Failure, Congenital Heart Disease, Valvular Heart Disease, Rheumatic Fever, Cardiomyopathy, Pericarditis, Cellulitis, Hypotension or Varicose Veins RESPIRATORY: Negative Chronic Obstructive Pulmonary Disease (COPD), Asthma, Bronchitis, Emphysema, Pneumonia, Pulmonary Fibrosis, Tuberculosis, Pulmonary Embolism, Pulmonary Edema or Sleep Apnea GASTROINTESTINAL: Negative Gastrointestinal Disorders, Hepatitis, Cirrhosis, Pancreatitis, Celiac Disease, Gall Bladder Disease, Gastrointestinal Bleed, Esophageal Varices, Buchanan's Esophagus, Colitis, Ulcerative Colitis, Diverticulitis, Diverticulosis, Ulcer, Irritable Bowel, Crohn's Disease, Obstructive Bowel, Hiatal Hernia, Hemorrhoids, Gastroesophageal Reflux Disease or Obesity GENITOURINARY: Negative Genitourinary Disorders, Renal Disease, Kidney Stones, Polycystic Kidney Disease, Neurogenic Bladder, Inguinal Hernia, Dialysis or Benign Prostatic Hyperplasia REPRODUCTIVE: Negative Endometriosis, Genital Herpes, Gonorrhea, Pelvic Inflammatory Disease, Previous Pregnancies, Syphilis or Uterine Prolapse MUSCULOSKELETAL: Negative Muscular Dystrophy, Myasthenia Gravis, Marfan's Syndrome, Arthritis, Rheumatoid Arthritis, Osteoporosis, Degenerative Disk Disease, Gout, Scoliosis, Fibromyalgia, Fractures, Degenerative Joint Disease, Osteomyelitis or Poliovirus ENT: Positive Deafness; Negative Cataracts, Glaucoma, Blind, Retinal Detachment, Macular Degeneration, Head Trauma or Eye Prosthesis ENDOCRINE: Positive Hypothyroidism; Negative Endocrine Disorders, Diabetes Mellitus Type 1, Diabetes Mellitus Type 2, Hypoglycemia, Miesha's Syndrome, [place]'s Disease, Hyperthyroidism, Parathyroid Disease, Pituitary Disease, Systemic Lupus Erythematosus, Syndrome of Inappropriate Antidiuretic Hormone (SIADH), Adrenal Disease or Graves' Disease HEMATOLOGIC: Negative Blood Disorders, Anemia, Leukemia, Hemophilia, Thalassemia, Sickle Cell Disease or Clotting Problems PSYCHO/SOCIAL: Negative Psychiatric Problems, Schizophrenia, Recreational Drug Use, Bipolar Disorder, Depression, Anxiety, Behavior Problems, Self-Mutilation, Attention Deficit Disorder, Attention Deficit Hyperactivity Disorder, Depression, Post Traumatic Stress Disorder or Eating Disorder OTHER HISTORY: Positive Hospitalization; Negative Autoimmune Disease, Down Syndrome, Autism, Developmental Delay, Shingles, Falls, Blood Transfusions, Blood Transfusion Reaction, Anesthesia Reactions, Organ Transplant, Chemotherapy, Radiation Therapy, Hyperbaric Therapy, MRSA, VRSA, Vancomycin-Resistant Enterococci, Human Immunodeficiency Virus (HIV), Chicken Pox, Measles, Mumps, Rubella (Guinean Measles), Pertussis, Clostridium Difficile or Cancer Family History FAMILY HISTORY: Positive Family Respiratory Disorders, Family Cardiac Disorders and Family Gastrointestinal Problems Surgical History SURGICAL: Negative Pacemaker, Thyroidectomy or Organ Transplant Social History SMOKING STATUS: Smoking status: Never smoker ALCOHOL: Alcohol Intake: Never HOUSING: Housing: House LIVES WITH: Lives With: Family Patient Portal Questionaires Social History Living Situation History Housing: House Tobacco History Smoking Status: Never smoker Alcohol History Alcohol Intake: Never Domestic Abuse History Do You Feel Safe at Home: Yes Review of Systems Report any current symptoms Only answer those that you have currently: Past Medical History Past Medical History Have you ever been diagnosed with any of the following: Neurological Problems Cerebrovascular Accident (CVA): Yes Transient Ischemic Attacks (TIA): No Dementia: No Alzheimer's Disease: No Parkinson's Disease: No Brain Tumor: No Meningitis: No Seizures: Yes Epilepsy: Yes Multiple Sclerosis: No Cerebral Palsy: No Amyotrophic Lateral Sclerosis (ALS/Mia Gehrig's): No Guillain-Lowpoint Syndrome: No Spina Bifida: No Paralysis: No Peripheral Neuropathy: No Mederos's Palsy: No Subdural Hematoma: No Migraine: No Head Trauma: No Spinal Cord Injury: No Traumatic Brain Injury: No Cardiology Problems Myocardial Infarction: No Cardiac Arrhythmia: No Atrial Fibrillation: Yes Angina: No Heart Murmur: No Coronary Artery Disease: No Atherosclerotic Heart Disease: No Peripheral Vascular Disease: No Hypercholesterolemia: Yes Aneurysm: No Congestive Heart Failure: No Congenital Heart Disease: No Valvular Heart Disease: No Rheumatic Fever: No Cardiomyopathy: No Edema: Yes Pericarditis: No Cellulitis: No Deep Vein Thrombosis: Yes Hypertension: Yes Hypotension: No Varicose Veins: No Respiratory Problems Chronic Obstructive Pulmonary Disease (COPD): No Asthma: No Bronchitis: No Emphysema: No Pneumonia: No Pulmonary Fibrosis: No Tuberculosis: No Pulmonary Embolism: No Pulmonary Edema: No Sleep Apnea: No Stomache/Intestinal Problems Hepatitis: No Cirrhosis: No Pancreatitis: No Celiac Disease: No Gall Bladder Disease: No Gastrointestinal Bleed: No Esophageal Varices: No Buchanan's Esophagus: No Colitis: No Ulcerative Colitis: No Diverticulitis: No Diverticulosis: No Ulcer: No Irritable Bowel: No Crohn's Disease: No Obstructive Bowel: No Hiatal Hernia: No Hemorrhoids: No Gastroesophageal Reflux Disease: No Obesity: No Genital/Urinary Problems Renal Disease: No Kidney Stones: No Polycystic Kidney Disease: No Neurogenic Bladder: No Inguinal Hernia: No Dialysis: No Reproductive Problems Endometriosis: No Genital Herpes: No Gonorrhea: No Pelvic Inflammatory Disease: No Previous Pregnancies: No Syphilis: No Uterine Prolapse: No Musculoskeletal Problems Muscular Dystrophy: No Myasthenia Gravis: No Marfan's Syndrome: No Arthritis: No Rheumatoid Arthritis: No Osteoporosis: No Degenerative Disk Disease: No Gout: No Scoliosis: No Fibromyalgia: No Fractures: No Degenerative Joint Disease: No Osteomyelitis: No Poliovirus: No Head,Eye,Nose,Throat Problems Cataracts: No Glaucoma: No Blind: No Retinal Detachment: No Macular Degeneration: No Deafness: Yes Eye Prosthesis: No Endocrine Problems Diabetes Mellitus Type 1: No Diabetes Mellitus Type 2: No Hypoglycemia: No [place]'s Syndrome: No Sumanth's Disease: No Hyperthyroidism: No Hypothyroidism: Yes Parathyroid Disease: No Pituitary Disease: No Systemic Lupus Erythematosus: No Syndrome of Inappropriate Antidiuretic Hormone: No Adrenal Disease: No Graves' Disease: No Blood Problems Anemia: No Leukemia: No Hemophilia: No Thalassemia: No Sickle Cell Disease: No Clotting Problems: No Psychologic Problems Schizophrenia: No Recreational Drug Use: No Bipolar Disorder: No Depression: No Anxiety: No Behavior Problems: No Self-Mutilation: No Attention Deficit Disorder: No Attention Deficit Hyperactivity Disorder: No Depression: No Post Traumatic Stress Disorder: No Eating Disorder: No Other Problems Hospitalization: Yes Autoimmune Disease: No Down Syndrome: No Autism: No Developmental Delay: No Shingles: No Falls: No Blood Transfusions: No Blood Transfusion Reaction: No Anesthesia Reactions: No Organ Transplant: No Chemotherapy: No Radiation Therapy: No Hyperbaric Therapy: No MRSA: No VRSA: No Vancomycin-Resistant Enterococci: No Human Immunodeficiency Virus (HIV): No Chicken Pox: No Measles: No Mumps: No Rubella (Guinean Measles): No Pertussis: No Clostridium Difficile: No Cancer: No Surgical History Pacemaker: No Thyroidectomy: No History of Present Illness HPI Narrative Ms. Awan is a 80-year-old female with past medical history of ischemic stroke with hemorrhagic conversion, chronic left hemiplegia, seizure disorder, atrial fibrillation (not on anticoagulation), chronic kidney disease, status post PEG tube and hypothyroidism who presented to [facility] on June 22, 2025 to establish care. Patient's daughter reported that patient's primary care physician is in [place] and considering patient's multiple comorbidities it is difficult to transport patient hence they are planning to establish care locally. 06/22/2025: Patient requesting follow-up for thyroid panel from post discharge, TSH 144.04 Free T4 1.11, patient is on levothyroxine 100 mcg daily, will continue. Will plan to repeat thyroid panel in 3 months patient currently denies any dry skin, constipation, hair loss or any other symptoms related to hypothyroidism. Requesting refill for Keppra which was refilled, complains of left ear pain assessed with otoscope significant amount of earwax noted will prescribe carbamide peroxide drops for 4 days. Elevated blood pressure reading noted, patient is taking amlodipine 5 mg daily, daughter to check blood pressure at home and give additional 5 in the evening as needed. Patient on amiodarone 200 mg daily, will follow-up with Dr. Janessa Lockhart outpatient to confirm dose. Does have chronic deep tissue injury to left heel, stage II left and right buttocks and abrasion at lower back and G-tube hypergranulation. Patient does have established home health which visits once a week, family unable to provide good wound care will refer to [facility] as well. Patient instructed to follow-up as needed. Review of Systems Review of Systems Systems Reviewed: All systems reviewed, normal except as documented Objective/Exam Narrative Physical exam: General: Elderly, cachectic female, alert, oriented to self and place Skin: Warm, dry, no rashes, no edema, chronic deep tissue injury to left heel, stage II left and right buttocks and abrasion at lower back and G-tube hypergranulation HEENT: Normocephalic, atraumatic. Mild tenderness reported over left TMJ area Otoscopic exam: Tympanic membranes intact left ear, no erythema, bulging, fluid, significant earwax buildup. Eyes: PERRL, no scleral icterus Mouth: Mucous membranes moist Neck: Supple, no JVD, no lymphadenopathy Lungs: Clear to auscultation bilaterally Cardiovascular: Regular Rate, Irregular rhythm, no murmurs, rubs, or gallops Abdomen: Soft, non-tender, non-distended. PEG tube in place, clean and intact. Extremities: No edema, pulses 2+ throughout Neuro: Flaccid left leg per baseline. Left arm flexed per baseline. Right upper and lower extremity 4/5 strength. Follows commands. Assessment & Plan Diagnosis / Problem List (1) Hypothyroidism: Status: Acute Assessment & Plan: Requesting follow-up for thyroid panel from post discharge: TSH 144.04 Free T4 1.11, Currently denies any dry skin, constipation, hair loss, lethargy, weight gain, feeling cold Plan: - Continue levothyroxine 100 mcg daily - Repeat thyroid panel in 3 months (2) Ulcer of left ankle: Status: Acute Assessment & Plan: -chronic deep tissue injury to left heel -stage II left and right buttocks -Abrasion at lower back -G-tube hypergranulation. Plan: -Referral to OP Wound Care -Established home health (3) Seizure disorder: Status: Chronic Assessment & Plan: -Established h/o seizures -Follows Dr Rolon Plan: -Continue Keppra -Follow up with Neurology Outpatient (4) Paroxysmal A-fib: Status: Chronic Assessment & Plan: Known A Fib, not on AC due to h/o hemmorrhagic stroke Plan: -Currently on Amiodarone 200mg Qday per daughter -Follow up with Dr Lockhart to confirm dose (5) Hypertension: Status: Chronic Assessment & Plan: -Elevated BP reading noted -Per daughter BP stable at home Plan: -Continue Amlodipine 5mg daily -Maintain BP Log -Hold Losartan (6) Excess ear wax: Status: Acute Assessment & Plan: -On Left Ear exam excess earwax note -Tympanic membrane unremarkable Plan: -Carbamide peroxide 10 drops left ear daily for 4 days Plan Follow up as needed Case discussed with Attending Physician MD Shahrzad Lai MD Internal Medicine PGY-2 Disclaimer: This note was dictated by speech recognition. Minor errors in risk management analyst may be present due to voice recognition software. Orders: Referrals Wound Healing L97.319 - Non-pressure chronic ulcer of right ankle with unspecified severity, L97.329 - Non-pressure chronic ulcer of left ankle with unspecified severity Advanced Care Planning Advance care planning discussed with:: patient and child Physician Billing New Patient New Patient: E/M Level 3-CPT 88560 Office Procedures [facility] Level of Care Nursing/Assessment Patient Status: Established Patient Nursing Assessment/Reassessment: Medication Reconciliation, Update PMH in EMR and Vital Signs Coordination of Care: Complex Care and Chronic Disease 1-5, Consent,records obtained, informed consent, Lab and Imaging orders and Results/Orders obtained Established Patient Charge Established Patient Point Assignment: 80 Established Patient Point Charge: Level 3 (80-115)
[2025-06-22 10:47] VITALS: BP 155/96; PULSE 104; RESP 18; TEMP 36.6; O2SAT 94
== END 2025-06-22 11:44 | disposition home or self-care (01) ==
PROVIDERS: PCP Internal Medicine Hospice and Palliative Medicine; Referring Provider Internal Medicine Hospice and Palliative Medicine; Supervising Provider Internal Medicine
DX: E03.9 Hypothyroidism, unspecified (principal); Z79.890 Hormone replacement therapy; L97.329 Non-pressure chronic ulcer of left ankle with unspecified severity; S30.810D Abrasion of lower back and pelvis, subsequent encounter; X58.XXXD Exposure to other specified factors, subsequent encounter; R56.9 Unspecified convulsions; I48.0 Paroxysmal atrial fibrillation; I10 Essential (primary) hypertension; H61.22 Impacted cerumen, left ear
CPT/HCPCS: 99213; G0463

== ENCOUNTER 2025-06-29 11:24 | Outpatient (AMB) | payer MEDICARE, BC, SELFPAY ==
--- NOTE | 2025-06-29 11:33 | ACNOTE_ITS ---
Allergies/Meds Allergies & Medications Allergies codeine Allergy (Verified 07/06/25 10:25) pravastatin Allergy (Verified 07/06/25 10:25) promethazine (From Phenergan) Allergy (Verified 07/06/25 10:25) sulfamethoxazole (From Bactrim) Allergy (Verified 07/06/25 10:25) trimethoprim (From Bactrim) Allergy (Verified 07/06/25 10:25) Medication Reconciliation amiodarone 200 mg tablet 200 mg feeding tube BID 30 days #60 tabs 04/19/25 [Rx Confirmed 07/06/25] amlodipine 5 mg tablet 5 mg feeding tube BID 30 days #60 tabs 04/19/25 [Rx Confirmed 07/06/25] ezetimibe 10 mg tablet 10 mg G-tube QDAY 30 days #30 tabs 04/20/25 [Rx Confirmed 07/06/25] levetiracetam 100 mg/mL oral solution (Keppra) 1,000 mg (10 mL) feeding tube BID 30 days #600 mL 06/22/25 [Rx Confirmed 07/06/25] carboxymethylcellulose sodium 0.5 % eye drops (Refresh Tears) 1 drp Both eyes QID #30 mL 06/29/25 [Rx Confirmed 07/06/25] levothyroxine 30 mcg/mL oral solution 100 mcg (3.3333 mL) feeding tube QDAY hypothyroidism #150 mL 06/29/25 [Rx Confirmed 07/06/25] carbamide peroxide 6.5 % ear drops 5 drp Left ear QDAY 4 days #15 mL 07/06/25 [Rx] lidocaine 5 % topical patch 1 patch topical QDAY #30 ea 07/06/25 [Rx] MA Intake Visit Data Collection New Patient or Established: Established Patient (seen at [facility] within 3 years) Seen by Clinical Staff ONLY (RN/MA): No Pain Present Currently: No PCP or OBGYN visit in last 3 months: No Do You Feel Safe at Home: Yes Authorities Contacted: N/A Smoking Status Smoking Status: Never smoker For Televisit only Telemed Video/Phone Visit: Yes Verbal consent obtained for Telemed visit?: Yes Verbal Consent witness name: DUANE Telemed Video/Phone visit w/Clinical Staff: 21-30 min Immunization / Flu Flu Vaccine in the Last 12 Months: No Flu Vaccine Exclusion Criteria: No Exclusion Criteria Past Medical History Past Medical History NEUROLOGIC: Positive Cerebrovascular Accident, Seizures and Epilepsy; Negative Neurological Disorders, Transient Ischemic Attacks (TIA), Dementia, Alzheimer's Disease, Parkinson's Disease, Brain Tumor, Meningitis, Multiple Sclerosis, Cerebral Palsy, Amyotrophic Lateral Sclerosis (ALS/Mia Gehrig's), Guillain-[place] Syndrome, Spina Bifida, Paralysis, Peripheral Neuropathy, Mederos's Palsy, Subdural Hematoma, Migraine, Head Trauma, Spinal Cord Injury or Traumatic Brain Injury CARDIAC: Positive Atrial Fibrillation, Hypercholesterolemia, Edema, Deep Vein Thrombosis and Hypertension; Negative Cardiac Disorders, Myocardial Infarction, Cardiac Arrhythmia, Angina, Heart Murmur, Coronary Artery Disease, Atherosclerotic Heart Disease, Peripheral Vascular Disease, Aneurysm, Congestive Heart Failure, Congenital Heart Disease, Valvular Heart Disease, Rheumatic Fever, Cardiomyopathy, Pericarditis, Cellulitis, Hypotension or Varicose Veins RESPIRATORY: Negative Chronic Obstructive Pulmonary Disease (COPD), Asthma, Bronchitis, Emphysema, Pneumonia, Pulmonary Fibrosis, Tuberculosis, Pulmonary Embolism, Pulmonary Edema or Sleep Apnea GASTROINTESTINAL: Negative Gastrointestinal Disorders, Hepatitis, Cirrhosis, Pancreatitis, Celiac Disease, Gall Bladder Disease, Gastrointestinal Bleed, Esophageal Varices, Buchanan's Esophagus, Colitis, Ulcerative Colitis, Diver ticulitis, Diverticulosis, Ulcer, Irritable Bowel, Crohn's Disease, Obstructive Bowel, Hiatal Hernia, Hemorrhoids, Gastroesophageal Reflux Disease or Obesity GENITOURINARY: Negative Genitourinary Disorders, Renal Disease, Kidney Stones, Polycystic Kidney Disease, Neurogenic Bladder, Inguinal Hernia, Dialysis or Benign Prostatic Hyperplasia REPRODUCTIVE: Negative Endometriosis, Genital Herpes, Gonorrhea, Pelvic Inflammatory Disease, Previous Pregnancies, Syphilis or Uterine Prolapse MUSCULOSKELETAL: Negative Muscular Dystrophy, Myasthenia Gravis, Marfan's Syndrome, Arthritis, Rheumatoid Arthritis, Osteoporosis, Degenerative Disk Disease, Gout, Scoliosis, Fibromyalgia, Fractures, Degenerative Joint Disease, Osteomyelitis or Poliovirus ENT: Positive Deafness; Negative Cataracts, Glaucoma, Blind, Retinal Detachment, Macular Degeneration, Head Trauma or Eye Prosthesis ENDOCRINE: Positive Hypothyroidism; Negative Endocrine Disorders, Diabetes Mellitus Type 1, Diabetes Mellitus Type 2, Hypoglycemia, [place]'s Syndrome, Sumanth's Disease, Hyperthyroidism, Parathyroid Disease, Pituitary Disease, Systemic Lupus Erythematosus, Syndrome of Inappropriate Antidiuretic Hormone (SIADH), Adrenal Disease or Graves' Disease HEMATOLOGIC: Negative Blood Disorders, Anemia, Leukemia, Hemophilia, Thalassemia, Sickle Cell Disease or Clotting Problems PSYCHO/SOCIAL: Negative Psychiatric Problems, Schizophrenia, Recreational Drug Use, Bipolar Disorder, Depression, Anxiety, Behavior Problems, Self-Mutilation, Attention Deficit Disorder, Attention Deficit Hyperactivity Disorder, Depression, Post Traumatic Stress Disorder or Eating Disorder OTHER HISTORY: Positive Hospitalization; Negative Autoimmune Disease, Down Syndrome, Autism, Developmental Delay, Shingles, Falls, Blood Transfusions, Blood Transfusion Reaction, Anesthesia Reactions, Organ Transplant, Chemotherapy, Radiation Therapy, Hyperbaric Therapy, MRSA, VRSA, Vancomycin-Resistant Enterococci, Human Immunodeficiency Virus (HIV), Chicken Pox, Measles, Mumps, Rubella ([place] Measles), Pertussis, Clostridium Difficile or Cancer Family History FAMILY HISTORY: Positive Family Respiratory Disorders, Family Cardiac Disorders and Family Gastrointestinal Problems Surgical History SURGICAL: Negative Pacemaker, Thyroidectomy or Organ Transplant Social History SMOKING STATUS: Smoking status: Never smoker ALCOHOL: Alcohol Intake: Never HOUSING: Housing: House LIVES WITH: Lives With: Family Patient Portal Questionaires Social History Living Situation History Housing: House Tobacco History Smoking Status: Never smoker Alcohol History Alcohol Intake: Never Domestic Abuse History Do You Feel Safe at Home: Yes Review of Systems Report any current symptoms Only answer those that you have currently: Past Medical History Past Medical History Have you ever been diagnosed with any of the following: Neurological Problems Cerebrovascular Accident (CVA): Yes Transient Ischemic Attacks (TIA): No Dementia: No Alzheimer's Disease: No Parkinson's Disease: No Brain Tumor: No Meningitis: No Seizures: Yes Epilepsy: Yes Multiple Sclerosis: No Cerebral Palsy: No Amyotrophic Lateral Sclerosis (ALS/Mia Gehrig's): No Guillain-Cambridge Syndrome: No Spina Bifida: No Paralysis: No Peripheral Neuropathy: No Mederos's Palsy: No Subdural Hematoma: No Migraine: No Head Trauma: No Spinal Cord Injury: No Traumatic Brain Injury: No Cardiology Problems Myocardial Infarction: No Cardiac Arrhythmia: No Atrial Fibrillation: Yes Angina: No Heart Murmur: No Coronary Artery Disease: No Atherosclerotic Heart Disease: No Peripheral Vascular Disease: No Hypercholesterolemia: Yes Aneurysm: No Congestive Heart Failure: No Congenital Heart Disease: No Valvular Heart Disease: No Rheumatic Fever: No Cardiomyopathy: No Edema: Yes Pericarditis: No Cellulitis: No Deep Vein Thrombosis: Yes Hypertension: Yes Hypotension: No Varicose Veins: No Respiratory Problems Chronic Obstructive Pulmonary Disease (COPD): No Asthma: No Bronchitis: No Emphysema: No Pneumonia: No Pulmonary Fibrosis: No Tuberculosis: No Pulmonary Embolism: No Pulmonary Edema: No Sleep Apnea: No Stomache/Intestinal Problems Hepatitis: No Cirrhosis: No Pancreatitis: No Celiac Disease: No Gall Bladder Disease: No Gastrointestinal Bleed: No Esophageal Varices: No Buchanan's Esophagus: No Colitis: No Ulcerative Colitis: No Diverticulitis: No Diverticulosis: No Ulcer: No Irritable Bowel: No Crohn's Disease: No Obstructive Bowel: No Hiatal Hernia: No Hemorrhoids: No Gastroesophageal Reflux Disease: No Obesity: No Genital/Urinary Problems Renal Disease: No Kidney Stones: No Polycystic Kidney Disease: No Neurogenic Bladder: No Inguinal Hernia: No Dialysis: No Reproductive Problems Endometriosis: No Genital Herpes: No Gonorrhea: No Pelvic Inflammatory Disease: No Previous Pregnancies: No Syphilis: No Uterine Prolapse: No Musculoskeletal Problems Muscular Dystrophy: No Myasthenia Gravis: No Marfan's Syndrome: No Arthritis: No Rheumatoid Arthritis: No Osteoporosis: No Degenerative Disk Disease: No Gout: No Scoliosis: No Fibromyalgia: No Fractures: No Degenerative Joint Disease: No Osteomyelitis: No Poliovirus: No Head,Eye,Nose,Throat Problems Cataracts: No Glaucoma: No Blind: No Retinal Detachment: No Macular Degeneration: No Deafness: Yes Eye Prosthesis: No Endocrine Problems Diabetes Mellitus Type 1: No Diabetes Mellitus Type 2: No Hypoglycemia: No Miesha's Syndrome: No [place]'s Disease: No Hyperthyroidism: No Hypothyroidism: Yes Parathyroid Disease: No Pituitary Disease: No Systemic Lupus Erythematosus: No Syndrome of Inappropriate Antidiuretic Hormone: No Adrenal Disease: No Graves' Disease: No Blood Problems Anemia: No Leukemia: No Hemophilia: No Thalassemia: No Sickle Cell Disease: No Clotting Problems: No Psychologic Problems Schizophrenia: No Recreational Drug Use: No Bipolar Disorder: No Depression: No Anxiety: No Behavior Problems: No Self-Mutilation: No Attention Deficit Disorder: No Attention Deficit Hyperactivity Disorder: No Depression: No Post Traumatic Stress Disorder: No Eating Disorder: No Other Problems Hospitalization: Yes Autoimmune Disease: No Down Syndrome: No Autism: No Developmental Delay: No Shingles: No Falls: No Blood Transfusions: No Blood Transfusion Reaction: No Anesthesia Reactions: No Organ Transplant: No Chemotherapy: No Radiation Therapy: No Hyperbaric Therapy: No MRSA: No VRSA: No Vancomycin-Resistant Enterococci: No Human Immunodeficiency Virus (HIV): No Chicken Pox: No Measles: No Mumps: No Rubella ([place] Measles): No Pertussis: No Clostridium Difficile: No Cancer: No Surgical History Pacemaker: No Thyroidectomy: No History of Present Illness HPI Narrative Ms. Awan is a 80-year-old female with past medical history of ischemic stroke with hemorrhagic conversion, chronic left hemiplegia, seizure disorder, atrial fibrillation (not on anticoagulation), chronic kidney disease, status post PEG tube and hypothyroidism who presented to [facility] on June 22, 2025 to establish care. Patient's daughter reported that patient's primary care physician is in [place] and considering patient's multiple comorbidities it is difficult to transport patient hence they are planning to establish care locally. 06/22/2025: Patient requesting follow-up for thyroid panel from post discharge, TSH 144.04 Free T4 1.11, patient is on levothyroxine 100 mcg daily, will continue. Will plan to repeat thyroid panel in 3 months patient currently denies any dry skin, constipation, hair loss or any other symptoms related to hypothyroidism. Requesting refill for Keppra which was refilled, complains of left ear pain assessed with otoscope significant amount of earwax noted will prescribe carbamide peroxide drops for 4 days. Elevated blood pressure reading noted, patient is taking amlodipine 5 mg daily, daughter to check blood pressure at home and give additional 5 in the evening as needed. Patient on amiodarone 200 mg daily, will follow-up with Dr. Janessa Lockhart outpatient to confirm dose. Does have chronic deep tissue injury to left heel, stage II left and right buttocks and abrasion at lower back and G-tube hypergranulation. Patient does have established home health which visits once a week, family unable to provide good wound care will refer to [facility] wound care as well. Patient instructed to follow-up as needed. 06/29/2025 (Telephone): Patient requested telephone visit, patient's daughter complaining that patient's lower eyelid red and swollen, no eye redness, no discharge and no pain per patient. High suspicion of hordeolum however patient seen over telephone audio visit, unable to examine eye. Recommended supportive care, will prescribe carboxymethylcellulose Refresh Tears, Patient's daughter requesting levothyroxine refill, which was refilled. Patient provided education on warning signs, requested patient to go to ER if vision changes/significant eye redness develops. If symptoms do not improve, patient can follow-up in outpatient in clinic in 1 week. Review of Systems Review of Systems ROS Unobtainable: other (Televisit) Objective/Exam Narrative Physical exam: Physical exam not performed, televisit Assessment & Plan Diagnosis / Problem List (1) Hordeolum externum (stye): Status: Acute Assessment & Plan: Patient requested telephone visit, patient's daughter complaining that patient's lower eyelid red and swollen, no eye redness, no discharge and no pain per patient. High suspicion of hordeolum however patient seen over telephone audio visit, unable to examine eye. Plan: -Recommended supportive care, will prescribe carboxymethylcellulose Refresh Tears -Patient provided education on warning signs, requested patient to go to ER if vision changes/significant eye redness develops. (2) Hypothyroidism: Status: Chronic Assessment & Plan: Thyroid panel from post discharge: TSH 144.04 Free T4 1.11, Currently denies any dry skin, constipation, hair loss, lethargy, weight gain, feeling cold Plan: - Continue levothyroxine 100 mcg daily, refilled -Will repeat thyroid panel in 3 months (3) Ulcer of left ankle: Status: Acute Assessment & Plan: -chronic deep tissue injury to left heel -stage II left and right buttocks -Abrasion at lower back -G-tube hypergranulation. Plan: -Referral to OP Wound Care ~pending -Established home health (4) Seizure disorder: Status: Chronic Assessment & Plan: -Established h/o seizures -Follows Dr Rolon Plan: -Continue Keppra -Follow up with Neurology Outpatient (5) Paroxysmal A-fib: Status: Chronic Assessment & Plan: Known A Fib, not on AC due to h/o hemmorrhagic stroke Plan: -Currently on Amiodarone 200mg Qday per daughter -Follow up with Dr Lockhart to confirm dose (6) Hypertension: Status: Chronic Assessment & Plan: -Elevated BP reading noted -Per daughter BP stable at home Plan: -Continue Amlodipine 5mg daily -Maintain BP Log -Hold Losartan (7) Excess ear wax: Status: Acute Assessment & Plan: -On Left Ear exam excess earwax note -Tympanic membrane unremarkable Plan: -Carbamide peroxide 10 drops left ear daily for 4 days Plan Follow up as needed Case discussed with Attending Physician MD Shahrzad Lai MD Internal Medicine PGY-2 Disclaimer: This note was dictated by speech recognition. Minor errors in air defence officer may be present due to voice recognition software. Advanced Care Planning Advance care planning discussed with:: patient and child Office Procedures [facility] Level of Care Nursing/Assessment Patient Status: Established Patient Nursing Assessment/Reassessment: Medication Reconciliation and Update PMH in EMR Coordination of Care: Education Complex Pt/Fam and Results/Orders obtained Established Patient Charge Established Patient Point Assignment: 40 Telehealth Telemed Phone/Video with patient at home & Dr,PA,GROUP HOME SUPERVISOR: Yes
== END 2025-06-29 11:38 | disposition home or self-care (01) ==
LOC: HODAHC 11:24
PROVIDERS: Supervising Provider Internal Medicine; Visit Provider Student in an Organized Health Care Education/Training Program
DX: E03.9 Hypothyroidism, unspecified (principal); L97.329 Non-pressure chronic ulcer of left ankle with unspecified severity; G40.909 Epilepsy, unspecified, not intractable, without status epilepticus; I48.0 Paroxysmal atrial fibrillation; I10 Essential (primary) hypertension; Z79.890 Hormone replacement therapy; H61.22 Impacted cerumen, left ear
CPT/HCPCS: 99212; G0463

== ENCOUNTER 2025-07-06 09:44 | Outpatient (AMB) | payer MEDICARE, BC, SELFPAY ==
[2025-07-06 10:24] VITALS: BP 138/89; PULSE 93; RESP 16; TEMP 36.4; O2SAT 95
--- NOTE | 2025-07-06 10:24 | ACNOTE_ITS ---
Vital Signs 07/06/25 10:24 Weight Measurement Method Wheelchair BP 138/89 H Blood Pressure Source Automatic Cuff Blood Pressure Location Right Upper Arm Position Sitting Respiration 16 Pulse 93 Pulse Source Monitor Temp 97.6 F Temp Source Oral Pulse Oximetry (%) 95 Oxygen Delivery Method Room Air Allergies/Meds Allergies & Medications Allergies codeine Allergy (Verified 07/06/25 10:25) pravastatin Allergy (Verified 07/06/25 10:25) promethazine (From Phenergan) Allergy (Verified 07/06/25 10:25) sulfamethoxazole (From Bactrim) Allergy (Verified 07/06/25 10:25) trimethoprim (From Bactrim) Allergy (Verified 07/06/25 10:25) Medication Reconciliation amiodarone 200 mg tablet 200 mg feeding tube BID 30 days #60 tabs 04/19/25 [Rx Confirmed 07/06/25] amlodipine 5 mg tablet 5 mg feeding tube BID 30 days #60 tabs 04/19/25 [Rx Confirmed 07/06/25] ezetimibe 10 mg tablet 10 mg G-tube QDAY 30 days #30 tabs 04/20/25 [Rx Confirmed 07/06/25] levetiracetam 100 mg/mL oral solution (Keppra) 1,000 mg (10 mL) feeding tube BID 30 days #600 mL 06/22/25 [Rx Confirmed 07/06/25] carboxymethylcellulose sodium 0.5 % eye drops (Refresh Tears) 1 drp Both eyes QID #30 mL 06/29/25 [Rx Confirmed 07/06/25] levothyroxine 30 mcg/mL oral solution 100 mcg (3.3333 mL) feeding tube QDAY hypothyroidism #150 mL 06/29/25 [Rx Confirmed 07/06/25] lidocaine 5 % topical patch 1 patch topical QDAY #30 ea 07/06/25 [Rx] MA Intake Visit Data Collection New Patient or Established: Established Patient (seen at [facility] within 3 years) Seen by Clinical Staff ONLY (RN/MA): No Pain Present Currently: No Pain scale:: 0 Pain Scale Used: [place]-Christensen/Numerical PCP or OBGYN visit in last 3 months: No Do You Feel Safe at Home: Yes Authorities Contacted: N/A Smoking Status Smoking Status: Never smoker Immunization / Flu Flu Vaccine in the Last 12 Months: No Flu Vaccine Exclusion Criteria: No Exclusion Criteria Past Medical History Past Medical History NEUROLOGIC: Positive Cerebrovascular Accident, Seizures and Epilepsy; Negative Neurological Disorders, Transient Ischemic Attacks (TIA), Dementia, Alzheimer's Disease, Parkinson's Disease, Brain Tumor, Meningitis, Multiple Sclerosis, Cerebral Palsy, Amyotrophic Lateral Sclerosis (ALS/Mia Gehrig's), Guillain-Riverside Syndrome, Spina Bifida, Paralysis, Peripheral Neuropathy, Mederos's Palsy, Subdural Hematoma, Migraine, Head Trauma, Spinal Cord Injury or Traumatic Brain Injury CARDIAC: Positive Atrial Fibrillation, Hypercholesterolemia, Edema, Deep Vein Thrombosis and Hypertension; Negative Cardiac Disorders, Myocardial Infarction, Cardiac Arrhythmia, Angina, Heart Murmur, Coronary Artery Disease, Atherosclerotic Heart Disease, Peripheral Vascular Disease, Aneurysm, Congestive Heart Failure, Congenital Heart Disease, Valvular Heart Disease, Rheumatic Fever, Cardiomyopathy, Pericarditis, Cellulitis, Hypotension or Varicose Veins RESPIRATORY: Negative Chronic Obstructive Pulmonary Disease (COPD), Asthma, Bronchitis, Emphysema, Pneumonia, Pulmonary Fibrosis, Tuberculosis, Pulmonary Embolism, Pulmonary Edema or Sleep Apnea GASTROINTESTINAL: Negative Gastrointestinal Disorders, Hepatitis, Cirrhosis, Pancreatitis, Celiac Disease, Gall Bladder Disease, Gastrointestinal Bleed, Esophageal Varices, Buchanan's Esophagus, Colitis, Ulcerative Colitis, Div erticulitis, Diverticulosis, Ulcer, Irritable Bowel, Crohn's Disease, Obstructive Bowel, Hiatal Hernia, Hemorrhoids, Gastroesophageal Reflux Disease or Obesity GENITOURINARY: Negative Genitourinary Disorders, Renal Disease, Kidney Stones, Polycystic Kidney Disease, Neurogenic Bladder, Inguinal Hernia, Dialysis or Benign Prostatic Hyperplasia REPRODUCTIVE: Negative Endometriosis, Genital Herpes, Gonorrhea, Pelvic Inflammatory Disease, Previous Pregnancies, Syphilis or Uterine Prolapse MUSCULOSKELETAL: Negative Muscular Dystrophy, Myasthenia Gravis, Marfan's Syndrome, Arthritis, Rheumatoid Arthritis, Osteoporosis, Degenerative Disk Disease, Gout, Scoliosis, Fibromyalgia, Fractures, Degenerative Joint Disease, Osteomyelitis or Poliovirus ENT: Positive Deafness; Negative Cataracts, Glaucoma, Blind, Retinal Detachment, Macular Degeneration, Head Trauma or Eye Prosthesis ENDOCRINE: Positive Hypothyroidism; Negative Endocrine Disorders, Diabetes Mellitus Type 1, Diabetes Mellitus Type 2, Hypoglycemia, Miesha's Syndrome, [place]'s Disease, Hyperthyroidism, Parathyroid Disease, Pituitary Disease, Systemic Lupus Erythematosus, Syndrome of Inappropriate Antidiuretic Hormone (SIADH), Adrenal Disease or Graves' Disease HEMATOLOGIC: Negative Blood Disorders, Anemia, Leukemia, Hemophilia, Thalassemia, Sickle Cell Disease or Clotting Problems PSYCHO/SOCIAL: Negative Psychiatric Problems, Schizophrenia, Recreational Drug Use, Bipolar Disorder, Depression, Anxiety, Behavior Problems, Self-Mutilation, Attention Deficit Disorder, Attention Deficit Hyperactivity Disorder, Depression, Post Traumatic Stress Disorder or Eating Disorder OTHER HISTORY: Positive Hospitalization; Negative Autoimmune Disease, Down Syndrome, Autism, Developmental Delay, Shingles, Falls, Blood Transfusions, Blood Transfusion Reaction, Anesthesia Reactions, Organ Transplant, Chemotherapy, Radiation Therapy, Hyperbaric Therapy, MRSA, VRSA, Vancomycin-Resistant Enterococci, Human Immunodeficiency Virus (HIV), Chicken Pox, Measles, Mumps, Rubella (Dominican Measles), Pertussis, Clostridium Difficile or Cancer Family History FAMILY HISTORY: Positive Family Respiratory Disorders, Family Cardiac Disorders and Family Gastrointestinal Problems Surgical History SURGICAL: Negative Pacemaker, Thyroidectomy or Organ Transplant Social History SMOKING STATUS: Smoking status: Never smoker ALCOHOL: Alcohol Intake: Never HOUSING: Housing: House LIVES WITH: Lives With: Family Patient Portal Questionaires Social History Living Situation History Housing: House Tobacco History Smoking Status: Never smoker Alcohol History Alcohol Intake: Never Domestic Abuse History Do You Feel Safe at Home: Yes Review of Systems Report any current symptoms Only answer those that you have currently: Past Medical History Past Medical History Have you ever been diagnosed with any of the following: Neurological Problems Cerebrovascular Accident (CVA): Yes Transient Ischemic Attacks (TIA): No Dementia: No Alzheimer's Disease: No Parkinson's Disease: No Brain Tumor: No Meningitis: No Seizures: Yes Epilepsy: Yes Multiple Sclerosis: No Cerebral Palsy: No Amyotrophic Lateral Sclerosis (ALS/Mia Gehrig's): No Guillain-Riverside Syndrome: No Spina Bifida: No Paralysis: No Peripheral Neuropathy: No Mederos's Palsy: No Subdural Hematoma: No Migraine: No Head Trauma: No Spinal Cord Injury: No Traumatic Brain Injury: No Cardiology Problems Myocardial Infarction: No Cardiac Arrhythmia: No Atrial Fibrillation: Yes Angina: No Heart Murmur: No Coronary Artery Disease: No Atherosclerotic Heart Disease: No Peripheral Vascular Disease: No Hypercholesterolemia: Yes Aneurysm: No Congestive Heart Failure: No Congenital Heart Disease: No Valvular Heart Disease: No Rheumatic Fever: No Cardiomyopathy: No Edema: Yes Pericarditis: No Cellulitis: No Deep Vein Thrombosis: Yes Hypertension: Yes Hypotension: No Varicose Veins: No Respiratory Problems Chronic Obstructive Pulmonary Disease (COPD): No Asthma: No Bronchitis: No Emphysema: No Pneumonia: No Pulmonary Fibrosis: No Tuberculosis: No Pulmonary Embolism: No Pulmonary Edema: No Sleep Apnea: No Stomache/Intestinal Problems Hepatitis: No Cirrhosis: No Pancreatitis: No Celiac Disease: No Gall Bladder Disease: No Gastrointestinal Bleed: No Esophageal Varices: No Buchanan's Esophagus: No Colitis: No Ulcerative Colitis: No Diverticulitis: No Diverticulosis: No Ulcer: No Irritable Bowel: No Crohn's Disease: No Obstructive Bowel: No Hiatal Hernia: No Hemorrhoids: No Gastroesophageal Reflux Disease: No Obesity: No Genital/Urinary Problems Renal Disease: No Kidney Stones: No Polycystic Kidney Disease: No Neurogenic Bladder: No Inguinal Hernia: No Dialysis: No Reproductive Problems Endometriosis: No Genital Herpes: No Gonorrhea: No Pelvic Inflammatory Disease: No Previous Pregnancies: No Syphilis: No Uterine Prolapse: No Musculoskeletal Problems Muscular Dystrophy: No Myasthenia Gravis: No Marfan's Syndrome: No Arthritis: No Rheumatoid Arthritis: No Osteoporosis: No Degenerative Disk Disease: No Gout: No Scoliosis: No Fibromyalgia: No Fractures: No Degenerative Joint Disease: No Osteomyelitis: No Poliovirus: No Head,Eye,Nose,Throat Problems Cataracts: No Glaucoma: No Blind: No Retinal Detachment: No Macular Degeneration: No Deafness: Yes Eye Prosthesis: No Endocrine Problems Diabetes Mellitus Type 1: No Diabetes Mellitus Type 2: No Hypoglycemia: No [place]'s Syndrome: No Sumanth's Disease: No Hyperthyroidism: No Hypothyroidism: Yes Parathyroid Disease: No Pituitary Disease: No Systemic Lupus Erythematosus: No Syndrome of Inappropriate Antidiuretic Hormone: No Adrenal Disease: No Graves' Disease: No Blood Problems Anemia: No Leukemia: No Hemophilia: No Thalassemia: No Sickle Cell Disease: No Clotting Problems: No Psychologic Problems Schizophrenia: No Recreational Drug Use: No Bipolar Disorder: No Depression: No Anxiety: No Behavior Problems: No Self-Mutilation: No Attention Deficit Disorder: No Attention Deficit Hyperactivity Disorder: No Depression: No Post Traumatic Stress Disorder: No Eating Disorder: No Other Problems Hospitalization: Yes Autoimmune Disease: No Down Syndrome: No Autism: No Developmental Delay: No Shingles: No Falls: No Blood Transfusions: No Blood Transfusion Reaction: No Anesthesia Reactions: No Organ Transplant: No Chemotherapy: No Radiation Therapy: No Hyperbaric Therapy: No MRSA: No VRSA: No Vancomycin-Resistant Enterococci: No Human Immunodeficiency Virus (HIV): No Chicken Pox: No Measles: No Mumps: No Rubella (Dominican Measles): No Pertussis: No Clostridium Difficile: No Cancer: No Surgical History Pacemaker: No Thyroidectomy: No History of Present Illness HPI Narrative Ms. Awan is a 80-year-old female with past medical history of ischemic stroke with hemorrhagic conversion, chronic left hemiplegia, seizure disorder, atrial fibrillation (not on anticoagulation), chronic kidney disease, status post PEG tube and hypothyroidism who presented to [facility] on [facility] 22, 2025 to establish care. Patient's daughter reported that patient's primary care physician is in [place] and considering patient's multiple comorbidities it is difficult to transport patient hence they are planning to establish care locally. 06/22/2025: Patient requesting follow-up for thyroid panel from post discharge, TSH 144.04 Free T4 1.11, patient is on levothyroxine 100 mcg daily, will continue. Will plan to repeat thyroid panel in 3 months patient currently denies any dry skin, constipation, hair loss or any other symptoms related to hypothyroidism. Requesting refill for Keppra which was refilled, complains of left ear pain assessed with otoscope significant amount of earwax noted will prescribe carbamide peroxide drops for 4 days. Elevated blood pressure reading noted, patient is taking amlodipine 5 mg daily, daughter to check blood pressure at home and give additional 5 in the evening as needed. Patient on amiodarone 200 mg daily, will follow-up with Dr. Janessa Lockhart outpatient to confirm dose. Does have chronic deep tissue injury to left heel, stage II left and right buttocks and abrasion at lower back and G-tube hypergranulation. Patient does have established home health which visits once a week, family unable to provide good wound care will refer to [facility] care as well. Patient instructed to follow-up as needed. 06/29/2025 (Telephone): Patient requested telephone visit, patient's daughter complaining that patient's lower eyelid red and swollen, no eye redness, no discharge and no pain per patient. High suspicion of hordeolum however patient seen over telephone audio visit, unable to examine eye. Recommended supportive care, will prescribe carboxymethylcellulose Refresh Tears, Patient's daughter requesting levothyroxine refill, which was refilled. Patient provided education on warning signs, requested patient to go to ER if vision changes/significant eye redness develops. If symptoms do not improve, patient can follow-up in outpatient in clinic in 1 week. 07/06/2025: Patient seen and examined in clinic, examined patient's left eye, patient has hordeolum which is improving, has dry secretions informed daughter to maintain adequate hygiene and clean eye every day. Continue Refresh Tears as needed, reported that she was unable to get carbamide peroxide drops, will be prescribed again. Will prescribe lidocaine patches, use as needed. Patient's blood pressure stable, continue all current medications. Pending follow-up with windows deployment technician Dr. Lockhart to discuss amiodarone dosing. Pending wound care referral. Review of Systems Review of Systems Systems Reviewed: All systems reviewed, normal except as documented Objective/Exam Narrative Physical exam: General: Elderly, cachectic female, alert, oriented to self and place Skin: Warm, dry, no rashes, no edema, chronic deep tissue injury to left heel, stage II left and right buttocks and abrasion at lower back and G-tube hypergranulation HEENT: Normocephalic, atraumatic, left eye dryness and hordeolum noted improving Eyes: PERRL, no scleral icterus Mouth: Mucous membranes moist Neck: Supple, no JVD, no lymphadenopathy Lungs: Clear to auscultation bilaterally Cardiovascular: Regular Rate, Irregular rhythm, no murmurs, rubs, or gallops Abdomen: Soft, non-tender, non-distended. PEG tube in place, clean and intact. Extremities: No edema, pulses 2+ throughout Neuro: Flaccid left leg per baseline. Left arm flexed per baseline. Right upper and lower extremity 4/5 strength. Follows commands. Assessment & Plan Diagnosis / Problem List (1) Hordeolum externum (stye): Status: Acute Qualifiers: Eyelid: lower Laterality: left Qualified Code(s): H00.015 - Hordeolum externum left lower eyelid Assessment & Plan: Left eye examined, already only admits improving, some crusted drainage noted, cleaned with alcohol prep pads. Educated daughter on maintaining adequate hygiene Plan: - Continue refresh teardrops -Follow-up as needed (2) Hypothyroidism: Status: Chronic Assessment & Plan: Thyroid panel from post discharge: TSH 144.04 Free T4 1.11, Currently denies any dry skin, constipation, hair loss, lethargy, weight gain, feeling cold Plan: - Continue levothyroxine 100 mcg daily -Will repeat thyroid panel in 3 months (3) Ulcer of left ankle: Status: Acute Qualifiers: Non-pressure ulcer stage: with fat layer exposed Qualified Code(s): L97.322 - Non-pressure chronic ulcer of left ankle with fat layer exposed Assessment & Plan: -chronic deep tissue injury to left heel -stage II left and right buttocks -Abrasion at lower back -G-tube hypergranulation. Plan: -Referral to OP Wound Care ~pending -Established home health (4) Seizure disorder: Status: Chronic Assessment & Plan: -Established h/o seizures -Follows Dr Rolon Plan: -Continue Keppra -Follow up with Neurology Outpatient (5) Paroxysmal A-fib: Status: Chronic Assessment & Plan: Known A Fib, not on AC due to h/o hemmorrhagic stroke Plan: -Currently on Amiodarone 200mg Qday per daughter -Follow up with Dr Lockhart to confirm dose (6) Hypertension: Status: Chronic Qualifiers: Hypertension type: primary hypertension Qualified Code(s): I10 - Essential (primary) hypertension Assessment & Plan: - Patient's blood pressure reading noted, BP 158/89 -Per daughter BP stable at home Plan: -Continue Amlodipine 5mg daily -Maintain BP Log - Losartan discontinued and removed from med rec (7) Excess ear wax: Status: Acute Qualifiers: Laterality: left Qualified Code(s): H61.22 - Impacted cerumen, left ear Assessment & Plan: -On Left Ear exam excess earwax note -Tympanic membrane unremarkable Plan: -Carbamide peroxide 10 drops left ear daily for 5 days Plan Prescribe lidocaine patches as needed for chronic pain Follow up as needed Case discussed with Attending Physician MD Shahrzad Lai MD Internal Medicine PGY-2 Disclaimer: This note was dictated by speech recognition. Minor errors in burrer marker axle may be present due to voice recognition software. Additional Assessment Attending note: I, Dangelo Menon MD, attest that I was physically present for the buenrostro portions of the service and evaluated the patient with the resident and I reviewed and discussed the case with the resident and agree with the resident's findings and plans of care as documented above. Dangelo Menon MD Advanced Care Planning Advance care planning discussed with:: patient and child Physician Billing Established Patient Established Patient: E/M Level 3-CPT 82309 Office Procedures [facility] Level of Care Nursing/Assessment Patient Status: Established Patient Nursing Assessment/Reassessment: Medication Reconciliation, Update PMH in EMR and Vital Signs Coordination of Care: Complex Care and Chronic Disease 1-5, Education Complex Pt/Fam, Results/Orders obtained and Staff clarify orders Established Patient Charge Established Patient Point Assignment: 90 Established Patient Point Charge: Level 3 (80-115)
== END 2025-07-06 10:44 | disposition home or self-care (01) ==
LOC: HODAHC 09:44
PROVIDERS: Supervising Provider Internal Medicine
DX: H61.22 Impacted cerumen, left ear (principal); H00.015 Hordeolum externum left lower eyelid; E03.9 Hypothyroidism, unspecified; L97.322 Non-pressure chronic ulcer of left ankle with fat layer exposed; R56.9 Unspecified convulsions; I48.0 Paroxysmal atrial fibrillation; I10 Essential (primary) hypertension
CPT/HCPCS: 99213; G0463